=== PATIENT | male | born 1955 | race Caucasian/White ===

== ENCOUNTER 2017-07-09 12:23 | Emergency (ER) | payer OTHER ==
[2017-07-09] MEDS ORDERED: Naproxen 500 MG TAB PO STA (13:21)
[2017-07-09 13:24] LABS: BASO # 0.1 K/uL (0.0-0.2); BASO % 1.2 % (0.0-2.0); EOS # 0.3 K/uL (0.0-0.7); EOS % 3.5 % (0.0-4.0); HEMOGLOBIN 16.3 g/dL (12.0-18.0); LYMPH # 2.4 K/uL (1.0-4.3); LYMPH % 24.9 % (20.0-40.0); MEAN CELL VOLUME 95.1 fl (80.0-94.0); MEAN CORPUSCULAR HEMOGLOBIN 32.9 pg (27.0-31.0); MEAN CORPUSCULAR HGB CONC 34.6 g/dL (33.0-37.0); MEAN PLATELET VOLUME 9.1 fl (7.2-11.7); MONO # 0.7 K/uL (0.0-0.8); MONO % 7.4 % (0.0-10.0); NEUT # 6.1 K/uL (1.8-7.0); RBC 4.95 Mil/uL (4.40-5.90); RED CELL DISTRIBUTION WIDTH 14.8 % (11.5-14.5); WHITE BLOOD COUNT 9.6 K/uL (4.8-10.8)
--- NOTE | 2017-07-09 13:26 | ED PDOC ---
Lower Extremity Pain/Injury Time Seen by Provider: 07/09/17 12:39 Chief Complaint (Nursing): Lower Extremity Problem/Injury Chief Complaint (Provider): Right 2nd Toe Pain History Per: Patient History/Exam Limitations: no limitations Onset/Duration Of Symptoms: Days (x2) Current Symptoms Are (Timing): Still Present Additional Complaint(s): 61 y/o male with a pmhx of diabetes who presents to the ED for evaluation of right 2nd toe pain x2 days. Patient reports he stopped taking his diabetes medication 2 years ago. He states hes tried using a fungal cream and cleaning his toe with alcohol without relief of symptoms, prompting him to present. PMD: None Past Medical History Reviewed: Historical Data, Nursing Documentation, Vital Signs Vital Signs: Last Vital Signs Temp 98.4 F 07/09/17 12:31 Pulse 111 H 07/09/17 12:31 Resp 18 07/09/17 12:31 BP 187/84 H 07/09/17 12:31 Pulse Ox 99 07/09/17 12:31 - Medical History PMH: Diabetes, Gall Bladder Disease - Surgical History Surgical History: No Surg Hx - Family History Family History: States: Unknown Family Hx - Home Medications Home Medications: Ambulatory Orders Medication Instructions Recorded hydroCHLOROthiazide [Hydrodiuril] 25 mg PO DAILY #30 tab 07/09/17 - Allergies Allergies/Adverse Reactions: Allergies Allergy/AdvReac Type Severity Reaction Status Date / Time No Known Allergies Allergy Verified 07/09/17 12:31 Review of Systems ROS Statement: Except As Marked, All Systems Reviewed And Found Negative Musculoskeletal: Positive for: Foot Pain (right 2nd toe) Physical Exam - Reviewed Nursing Documentation Reviewed: Yes Vital Signs Reviewed: Yes - Physical Exam Appears: Positive for: Non-toxic, No Acute Distress Head Exam: Positive for: ATRAUMATIC Skin: Positive for: Normal Color Eye Exam: Positive for: Normal appearance Neck: Positive for: Normal Cardiovascular/Chest: Positive for: Regular Rate, Rhythm Respiratory: Positive for: Normal Breath Sounds. Negative for: Respiratory Distress Extremity: Positive for: Tenderness (distal right 2nd toe), Swelling (localized swelling and erthythema to distal portion of right 2nd toe), Other (right foot has dry and cracked skin ) Neurologic/Psych: Positive for: Alert - Laboratory Results Result Diagrams: 07/09/17 13:15 07/09/17 13:15 - ECG O2 Sat by Pulse Oximetry: 99 (RA) Pulse Ox Interpretation: Normal Medical Decision Making Medical Decision Making: Plan: --CMP --Hemoblogin A1C --CBC --Glucose, POC --Naproxen 500mg PO --Accucheckk --X-Ray Right Foot 14:25 Podiatry at bedside. HTN in ER - CLonidine ordered. Repeat BP improved. Scribe Attestation: Documented by Wilemr Rueda, acting as a scribe for Winter Del Cid PA-C. MD Scribe Attestation: All medical record entries made by the Scribe were at my direction and personally dictated by me. I have reviewed the chart and agree that the record accurately reflects my personal performance of the history, physical exam, medical decision making, and the department course for this patient. I have also personally directed, reviewed, and agree with the discharge instructions and disposition. Disposition - Clinical Impression Clinical Impression: Toe pain, Hypertension - Patient ED Disposition Is Patient to be Admitted: No Counseled Patient/Family Regarding: Diagnosis, Need For Followup - Disposition Referrals: Podiatry Clinic [Outside] [facility] [Outside] Disposition: Routine/Home Disposition Time: 16:15 Condition: STABLE Prescriptions: hydroCHLOROthiazide [Hydrodiuril] 25 mg PO DAILY #30 tab Instructions: High Blood Pressure in Adults, Muscle and Bone Pain (DC) Forms: [employer] (Frisian), [facility] School/Work Excuse
--- NOTE | 2017-07-09 13:32 | RAD ---
PROCEDURE: Right Foot Radiographs. HISTORY: pain, swelling, Hx DM COMPARISON: None. FINDINGS: BONES: No acute fracture. Os peroneum. JOINTS: Unremarkable. SOFT TISSUES: Normal. OTHER FINDINGS: None. IMPRESSION: No demonstrated fracture dislocation.
[2017-07-09 13:34] LABS: ALBUMIN 4.1 g/dL (3.5-5.0); ALT/SGPT 36 U/L (21-72); AST/SGOT 53 U/L (17-59); BLOOD UREA NITROGEN 9 mg/dl (9-20); CALCIUM 9.5 mg/dL (8.4-10.2); GFR AFRICAN-AMERICAN > 60; GFR NON-AFRICAN AMERICAN > 60
[2017-07-09] MEDS ORDERED: Naproxen 500 MG TAB PO ONE (13:47)
--- NOTE | 2017-07-09 14:41 | CP.PCM.CON ---
History of Present Illness - History of Present Illness History of Present Illness: Podiatry - Dr. Reid 61 year old male PMHx DM presents to ED complaining of pain in right toe 2nd digit ongoing for several days. 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 Patient reports moderate pain, worst with pressure on the top of his toe. Patient denies any recent change in activity or shoe gear. Patient admits to putting IcyHot and alcohol on his forefoot for relief of symptoms with no success. Patient admits to being a diabetic but stopped taking his medication 2 years ago. Admits to occasional numbness and tingling in his feet. Denies other pedal complaints. Denies N/V/F/D /C/SOB/ELKINS/dizziness. PMHx: DM, gallstones PSH: gallstone removal FH: unknown SH: daily ETOH use (1/2 pint a day), 1PPD x30 years, no illicit drug use All: NKDA Review of Systems - Review of Systems All systems: reviewed and no additional remarkable complaints except (as per HPI ) Past Patient History - Past Social History Smoking Status: Heavy Smoker > 10 Cigarettes Daily - PULMONARY Hx Respiratory Disorders: Yes - GASTROINTESTINAL Hx Gall Bladder Disease: Yes - PSYCHIATRIC Hx Substance Use: No - ANESTHESIA Hx Anesthesia: Yes Hx Anesthesia Reactions: No Meds Home Medications: Home Medication List Medication Instructions Recorded Confirmed Type hydroCHLOROthiazide [Hydrodiuril] 25 mg PO DAILY #30 tab 07/09/17 Rx Allergies/Adverse Reactions: Allergies Allergy/AdvReac Type Severity Reaction Status Date / Time No Known Allergies Allergy Verified 07/09/17 12:31 Physical Exam - Constitutional Appears: Well, Non-toxic, No Acute Distress - Extremities Exam Additional comments: RLE focused physical exam: VASC: DP and PT pulses palpable 2/4. CFT <3 seconds to all digits x5. Temperature gradient warm to warm. No edema noted. No increase in warmth noted to 2nd digit. NEURO: Gross sensation absent. DERM: Severe xerosis present to plantar aspect of foot. Fissues present in sulcus of foot however no full thickness break in soft tissue. Green topical in webspaces. ORTHO: Pain on palpation distal tuft of 2nd digit. No pain upon 2nd digit DIPJ, PIPJ, or MPJ ROM. Digital ROM present. No pain with 2nd metatarsal ROM. Muscle strength 5/5 for all dorsiflexors, plantarflexors, inverters, and everters. - Neurological Exam Neurological exam: Alert, Oriented x3 - Psychiatric Exam Psychiatric exam: Normal Affect, Normal Mood Results - Vital Signs Recent Vital Signs: Last Vital Signs Temp 98.4 F 07/09/17 12:31 Pulse 111 H 07/09/17 12:31 Resp 18 07/09/17 12:31 BP 187/84 H 07/09/17 12:31 Pulse Ox 99 07/09/17 14:28 - Labs Result Diagrams: 07/09/17 13:15 07/09/17 13:15 Labs: Laboratory Results - last 24 hr 07/09/17 07/09/17 07/09/17 12:53 13:15 13:15 WBC 9.6 RBC 4.95 Hgb 16.3 Hct 47.1 MCV 95.1 H MCH 32.9 H MCHC 34.6 RDW 14.8 H Plt Count 489 H MPV 9.1 Neut % (Auto) 63.0 Lymph % (Auto) 24.9 [place] % (Auto) 7.4 Eos % (Auto) 3.5 Baso % (Auto) 1.2 Neut # (Auto) 6.1 Lymph # (Auto) 2.4 [place] # (Auto) 0.7 Eos # (Auto) 0.3 Baso # (Auto) 0.1 Sodium 142 Potassium 4.4 Chloride 100 Carbon Dioxide 31 H Anion Gap 15 BUN 9 Creatinine 0.7 L Est GFR ( Amer) > 60 Est GFR (Non-Af Amer) > 60 POC Glucose (mg/dL) 100 Random Glucose 111 H Calcium 9.5 Total Bilirubin 1.7 H AST 53 ALT 36 Alkaline Phosphatase 114 Total Protein 8.2 Albumin 4.1 Globulin 4.1 H Albumin/Globulin Ratio 1.0 Assessment & Plan - Assessment and Plan (Free Text) Assessment: 61M with right 2nd digit pain secondary to trauma Plan: Patient seen and evaluated Discussed with attending, Dr. Reid Right foot XR reviewed: unremarkable 2nd and 3rd digits caterina splinted Surgical shoe dispensed - patient to keep splint and wear surgical shoe with ambulation at all times Recommend RICE therapy Pain control per ED Advised patient to follow up with Dr. Reid in clinic on 07/17/17 Stable for dc per podiatry Thank you for the consult
[2017-07-09 18:50] VITALS: BP 165/89; PULSE 106; RESP 17
[2017-07-09 18:53] VITALS: TEMP 98.1
[2017-07-12 20:16] VITALS: O2SAT 99
== END 2017-07-09 18:52 | disposition home or self-care (01) ==
LOC: H.ER 12:23
DX: M79.674 Pain in right toe(s) (principal); E11.9 Type 2 diabetes mellitus without complications; I10 Essential (primary) hypertension

== ENCOUNTER 2017-08-10 09:43 | Inpatient (IN) | payer OTHER ==
[2017-08-10 09:44] VITALS: BMI 22.8
--- NOTE | 2017-08-10 10:58 | ED PDOC ---
Lower Extremity Pain/Injury Time Seen by Provider: 08/10/17 10:15 Chief Complaint (Nursing): Lower Extremity Problem/Injury Chief Complaint (Provider): Lower Extremity Problem/Injury History Per: Patient History/Exam Limitations: no limitations Onset/Duration Of Symptoms: Persistent (xmonths) Current Symptoms Are (Timing): Still Present Additional Complaint(s): 61 year old male with medical history of diabetes and hypertension, referred to the emergency department by podiatry clinic for an evaluation of a gangrene right foot. Patient reports having pain in his 2nd and 3rd toes of the right foot ongoing for "months". He denies any fever, chills or drainage. PMD: Carmen Lynn MD [employer] Supervisor: Dr. Pham Past Medical History Reviewed: Historical Data, Nursing Documentation, Vital Signs Vital Signs: Last Vital Signs Temp 98.2 F 08/10/17 09:45 Pulse 98 H 08/10/17 09:45 Resp 16 08/10/17 09:45 BP 133/78 08/10/17 09:45 Pulse Ox 98 08/10/17 09:45 - Medical History PMH: Diabetes, Gall Bladder Disease, HTN - Family History Family History: States: Unknown Family Hx - Home Medications Home Medications: Ambulatory Orders Medication Instructions Recorded Atorvastatin [Lipitor] 40 mg PO DAILY 08/10/17 MetFORMIN ER [Glucophage XR] 500 mg PO QPM 08/10/17 hydroCHLOROthiazide [Hydrodiuril] 25 mg PO DAILY 08/10/17 - Allergies Allergies/Adverse Reactions: Allergies Allergy/AdvReac Type Severity Reaction Status Date / Time No Known Allergies Allergy Verified 08/10/17 09:57 Review of Systems ROS Statement: Except As Marked, All Systems Reviewed And Found Negative Constitutional: Negative for: Fever, Chills Musculoskeletal: Positive for: Foot Pain (right-sided 2nd-3rd toes with gangrene ). Negative for: Other (Gangrene drainage) Physical Exam - Reviewed Nursing Documentation Reviewed: Yes Vital Signs Reviewed: Yes - Physical Exam Appears: Positive for: No Acute Distress Cardiovascular/Chest: Positive for: Regular Rate, Rhythm Respiratory: Positive for: Normal Breath Sounds. Negative for: Respiratory Distress Extremity: Positive for: Other (RIGHT GANGRENE FOOT DEFERRED TO PODIATRY) Neurologic/Psych: Positive for: Alert, Oriented - Laboratory Results Result Diagrams: 08/13/17 06:00 06/26/18 05:50 - ECG O2 Sat by Pulse Oximetry: 98 (RA) Pulse Ox Interpretation: Normal Medical Decision Making Medical Decision Making: Initial Impression: Gangrene foot Initial Plan: * Type and screen * CMP * CBC * PTT * PT * CXR * Morphine 2mg IV * Blood culture * Xray foot (right) Time: 1048 --Podiatry consult ordered. Scribe Attestation: Documented by Gabi Crabtree, acting as a scribe for Lyn Bearden MD. Provider Scribe Attestation: All medical record entries made by the Scribe were at my direction and personally dictated by me. I have reviewed the chart and agree that the record accurately reflects my personal performance of the history, physical exam, medical decision making, and the department course for this patient. I have also personally directed, reviewed, and agree with the discharge instructions and disposition. Disposition - Clinical Impression Clinical Impression: Gangrene of foot - Patient ED Disposition Is Patient to be Admitted: Yes - Disposition Disposition Time: 13:44 Condition: STABLE - Pt Status Changed To: Hospital Disposition Of: Inpatient - Admit Certification Admit to Inpatient:: After my assessment, the patient will require hospitalization for at least two midnights. This is because of the severity of symptoms shown, intensity of services needed, and/or the medical risk in this patient being treated as an outpatient. - POA Present On Arrival: None
[2017-08-10 11:42] LABS: BASO # 0.1 K/uL (0.0-0.2); BASO % 1.1 % (0.0-2.0); EOS # 0.4 K/uL (0.0-0.7); EOS % 2.9 % (0.0-4.0); HEMOGLOBIN 15.4 g/dL (12.0-18.0); LYMPH # 2.4 K/uL (1.0-4.3); LYMPH % 19.6 % (20.0-40.0); MEAN CELL VOLUME 94.3 fl (80.0-94.0); MEAN CORPUSCULAR HEMOGLOBIN 32.4 pg (27.0-31.0); MEAN CORPUSCULAR HGB CONC 34.4 g/dL (33.0-37.0); MEAN PLATELET VOLUME 9.1 fl (7.2-11.7); MONO # 0.8 K/uL (0.0-0.8); MONO % 6.6 % (0.0-10.0); NEUT # 8.5 K/uL (1.8-7.0); NEUT % 69.8 % (50.0-75.0); RBC 4.75 Mil/uL (4.40-5.90); RED CELL DISTRIBUTION WIDTH 13.5 % (11.5-14.5); WHITE BLOOD COUNT 12.1 K/uL (4.8-10.8)
[2017-08-10 11:55] LABS: ALBUMIN 4.3 g/dL (3.5-5.0); ALT/SGPT 23 U/L (21-72); AST/SGOT 30 U/L (17-59); BLOOD UREA NITROGEN 12 mg/dl (9-20); CALCIUM 10.1 mg/dL (8.4-10.2); GFR AFRICAN-AMERICAN > 60; GFR NON-AFRICAN AMERICAN > 60
[2017-08-10 12:03] LABS: INR 1.2 (0.9-1.2); PARTIAL THROMBOPLASTIN TIME 38.1 Seconds (25.6-37.1); PROTHROMBIN TIME 13.5 Seconds (9.8-13.1)
[2017-08-10] MEDS ORDERED: Piperacillin/Tazobact 4.5 GM in Sodium Chloride 0.9% 100 ML IVPB STA (13:36)
--- NOTE | 2017-08-10 14:19 | CP.PCM.HP ---
History of Present Illness - History of Present Illness History of Present Illness: 61M p/w worsening throbbing pain to RIGHT foot for 2-3 months. He denies any inciting trauma, but works in a [employer] company that he reports sometimes his feet bump into things. He cannot tolerate having foot up on bed and must hang it off the side to "get relief". In addition, he reports cramping sensation in b/l calves if he walks "too much" or has to run that resolves with resting. He denies any SOB, chest pain, palpitations, dizziness, headache, fevers, chills, abdominal pain, nausea, vomiting, diarrhea/constipation, or urinary symptoms. He has been taking his medication as prescribed. PMH: HTN, HLD, Prediabetes PSH: Lap CCY Allergies: NKDA Smokin-1.5ppd/20yrs Alcohol: 4 beers/3 shots almost every day Drugs: Denies ED COURSE VSS: 36.8- 98- 133/78- 16- 98%RA CBC: 12.1>15.4/44.8<576, no shift CMP: 131/5.0- 91/33- 12/0.8; TBili-1.4, ALP/AST/ALT- 92/30/23 BCx/Wound Cx Foot X-ray Morphine Vanc 1g Zosyn 4.5mg x1 Present on Admission - Present on Admission Any Indicators Present on Admission: No Review of Systems - Musculoskeletal Musculoskeletal: Muscle Cramps, Radiating Pain into Limb Past Patient History - Past Social History Smoking Status: Heavy Smoker > 10 Cigarettes Daily - CARDIAC Hx Cardiac Disorders: Yes - PULMONARY Hx Respiratory Disorders: No - ENDOCRINE/METABOLIC Hx Endocrine Disorders: Yes - MUSCULOSKELETAL/RHEUMATOLOGICAL Hx Musculoskeletal Disorders: Yes - GASTROINTESTINAL Hx Gall Bladder Disease: Yes - PSYCHIATRIC Hx Substance Use: No - SURGICAL HISTORY Other/Comment: Gallstones removed. Left arm surgery - ANESTHESIA Hx Anesthesia: Yes Hx Anesthesia Reactions: No Meds Allergies/Adverse Reactions: Allergies Allergy/AdvReac Type Severity Reaction Status Date / Time No Known Allergies Allergy Verified 08/10/17 09:57 Physical Exam - Constitutional Appears: Non-toxic, No Acute Distress, Older Than Stated Age, Chronically Ill - Head Exam Head Exam: ATRAUMATIC Additional comments: Swelling over RIGHT maxilla that is non-tender on palpation and feels like bone. - Eye Exam Eye Exam: EOMI, Scleral icterus (mild). absent: Normal appearance (small soft swelling in RIGHT medial eye/nasal transition) Pupil Exam: PERRL - ENT Exam ENT Exam: Mucous Membranes Moist Additional comments: [] VERY poor dentition, 1 tooth in RIGHT upper with surrounding erythema and patient reports pain [] small, 1cm swellings x4 anterior to frenulum linguae - Neck Exam Neck exam: Positive for: Full Rom, Normal Inspection. Negative for: Lymphadenopathy - Respiratory Exam Respiratory Exam: Clear to Auscultation Bilateral, NORMAL BREATHING PATTERN. absent: Rales, Wheezes - Cardiovascular Exam Cardiovascular Exam: REGULAR RHYTHM, +S1, +S2 - GI/Abdominal Exam GI & Abdominal Exam: Normal Bowel Sounds, Soft. absent: Tenderness Additional comments: [] scars c/w surgical history - Extremities Exam Extremities exam: Positive for: full ROM. Negative for: normal capillary refill (not possible to assess as feet are dry), normal inspection (Not able to visualize myself as podiatry had dressed entire foot, however picture that family has at bedside shows RIGHT foot dry gangrene to 2nd toe and likely 3rd. Please see Podiatry note and will see with Podiatry in the morning), pedal edema , tenderness, pedal pulses present - Neurological Exam Neurological exam: Alert, Oriented x3 - Psychiatric Exam Psychiatric exam: Normal Affect, Normal Mood - Skin Skin Exam: Dry, Normal Color Results - Vital Signs Recent Vital Signs: Last Vital Signs Temp 36.8 C 08/10/17 13:56 Pulse 98 H 08/10/17 13:56 Resp 16 08/10/17 13:56 BP 133/78 08/10/17 13:56 Pulse Ox 98 08/10/17 11:15 - Labs Result Diagrams: 08/10/17 11:35 08/10/17 11:35 Labs: Laboratory Results - last 24 hr 08/10/17 08/10/17 08/10/17 11:35 11:35 11:35 WBC 12.1 H RBC 4.75 Hgb 15.4 Hct 44.8 MCV 94.3 H MCH 32.4 H MCHC 34.4 RDW 13.5 Plt Count 576 H MPV 9.1 Neut % (Auto) 69.8 Lymph % (Auto) 19.6 L [place] % (Auto) 6.6 Eos % (Auto) 2.9 Baso % (Auto) 1.1 Neut # (Auto) 8.5 H Lymph # (Auto) 2.4 [place] # (Auto) 0.8 Eos # (Auto) 0.4 Baso # (Auto) 0.1 PT 13.5 H INR 1.2 APTT 38.1 H Sodium 131 L Potassium 5.0 Chloride 91 L Carbon Dioxide 33 H Anion Gap 12 BUN 12 Creatinine 0.8 Est GFR ( Amer) > 60 Est GFR (Non-Af Amer) > 60 Random Glucose 167 H Calcium 10.1 Total Bilirubin 1.4 H AST 30 ALT 23 Alkaline Phosphatase 92 Total Protein 8.4 H Albumin 4.3 Globulin 4.1 H Albumin/Globulin Ratio 1.0 Blood Type Antibody Screen BBK History Checked 08/10/17 11:35 WBC RBC Hgb Hct MCV MCH MCHC RDW Plt Count MPV Neut % (Auto) Lymph % (Auto) [place] % (Auto) Eos % (Auto) Baso % (Auto) Neut # (Auto) Lymph # (Auto) [place] # (Auto) Eos # (Auto) Baso # (Auto) PT INR APTT Sodium Potassium Chloride Carbon Dioxide Anion Gap BUN Creatinine Est GFR ( Amer) Est GFR (Non-Af Amer) Random Glucose Calcium Total Bilirubin AST ALT Alkaline Phosphatase Total Protein Albumin Globulin Albumin/Globulin Ratio Blood Type A POSITIVE Antibody Screen Negative BBK History Checked No verified bt Assessment & Plan - Assessment and Plan (Free Text) Assessment: 61M PMH HTN/HLD/Prediabetes p/w with RIGHT foot dry gangrene, RLE rest pain, and LLE claudication. Minimal leukocytosis, afebrile. Plan: Diet: Heart Healthy DVT prophylaxis: 40mg Lovenox Podiatry Consult (Ankit): Drsg changes, will f/u recs Cardiology Consult (Campbell): Vascular evaluation for claudication/rest pain ID Consult (Keron): pending; vanc/zosyn in the interim Smoker: Nicoderm patch Alcohol Use: CIWA protocol, 2mg Ativan PRN CIWA >8 HTN: resume home meds HLD: resume home meds Prediabetes: Diet/exercise, monitor glucose
--- NOTE | 2017-08-10 14:20 | RAD ---
PROCEDURE: CHEST RADIOGRAPH, 1 VIEW HISTORY: Admission COMPARISON: None available. FINDINGS: LUNGS: Borderline patchy infiltrate or atelectasis in the right base with none on the left. PLEURA: Blunting of the left costophrenic sulcus reflects trace left pleural effusion or possible fibrosis. No right pleural effusion evident. No pneumothorax bilaterally. CARDIOVASCULAR: Possible cardiomegaly. Technical magnification likely present to some degree in this frontal chest radiograph. No pulmonary vascular congestion appreciable. OSSEOUS STRUCTURES: No significant abnormalities. VISUALIZED UPPER ABDOMEN: Normal. OTHER FINDINGS: None. IMPRESSION: Portal and right basilar patchy infiltrate. Cardiomegaly without pulmonary vascular congestion.
--- NOTE | 2017-08-10 15:02 | CP.PCM.CON ---
History of Present Illness - History of Present Illness History of Present Illness: A 61 y/o M PMH HTN, HLD, prediabetes seen and evaluated at the ED for gangrenous R 2nd and 3rd toes. Patient states that his problem started a week ago. Patient states that the R foot 2nd and 3rd toes atarted to have color changes which turns rapidly into beeing completely black. Patient states that the adjacent toes started to change in colour and the interdigital spaces started to get cracked and a thick drainage started to get out of it. Patient states that patient states that he came to our clinic last week and his toes didn't look that bad but it got deteriorated quickly. Patient denies any F/N/V/ C or SOB recently. Review of Systems - Review of Systems All systems: reviewed and no additional remarkable complaints except Review of Systems: as per HPI Past Patient History - Past Social History Smoking Status: Heavy Smoker > 10 Cigarettes Daily - CARDIAC Hx Cardiac Disorders: Yes - PULMONARY Hx Respiratory Disorders: No - ENDOCRINE/METABOLIC Hx Endocrine Disorders: Yes - MUSCULOSKELETAL/RHEUMATOLOGICAL Hx Musculoskeletal Disorders: Yes - GASTROINTESTINAL Hx Gall Bladder Disease: Yes - PSYCHIATRIC Hx Substance Use: No - SURGICAL HISTORY Other/Comment: Gallstones removed. Left arm surgery - ANESTHESIA Hx Anesthesia: Yes Hx Anesthesia Reactions: No Meds Allergies/Adverse Reactions: Allergies Allergy/AdvReac Type Severity Reaction Status Date / Time No Known Allergies Allergy Verified 08/10/17 09:57 - Medications Medications: Current Medications Atorvastatin Calcium (Lipitor) 40 mg PO DAILY MARILU Enoxaparin Sodium (Lovenox) 40 mg SC HS MARILU PRN Reason: Protocol Hydrochlorothiazide (Hydrodiuril) 25 mg PO DAILY MARILU Vancomycin HCl 1 gm/ Sodium (Chloride) 250 mls @ 166.667 mls/hr IVPB STAT STA PRN Reason: Protocol Stop: 08/10/17 15:05 Last Admin: 08/10/17 14:03 Dose: 166.667 mls/hr Metformin HCl (Glucophage) 250 mg PO BID MARILU Physical Exam - Constitutional Appears: Well, Non-toxic, No Acute Distress - Head Exam Head Exam: ATRAUMATIC, NORMOCEPHALIC - Extremities Exam Additional comments: LE focused exam Vasc: DP/PT Non palpable b/l. Temp gradient warm to cool from proximal to distal on the L side and warm to warm on the R side. Cap refill delayed in all digits.pitting edema and erythema noted to the L foot up to the level of the malleoli. Neuro: Grossly diminished to entire forefoot Derm:R 2nd and 3rd toes are completely black and dry with no sensation on touchall the R interspaces are cracked and ulcerated with purulent dranage and malodor. dark discoloration involves the R forefoot up to the level of the met. necks. MSK: Muscle power 4/5 in all muscle groups on the R side and 5/5 in all muscle groups of the L side. - Neurological Exam Neurological exam: Alert, Oriented x3 - Psychiatric Exam Psychiatric exam: Normal Affect, Normal Mood Results - Vital Signs Recent Vital Signs: Last Vital Signs Temp 97.9 F 08/10/17 14:26 Pulse 97 H 08/10/17 14:26 Resp 16 08/10/17 14:26 BP 147/80 08/10/17 14:26 Pulse Ox 100 08/10/17 14:26 - Labs Result Diagrams: 08/10/17 11:35 08/10/17 11:35 Labs: Laboratory Results - last 24 hr 08/10/17 08/10/17 08/10/17 11:35 11:35 11:35 WBC 12.1 H RBC 4.75 Hgb 15.4 Hct 44.8 MCV 94.3 H MCH 32.4 H MCHC 34.4 RDW 13.5 Plt Count 576 H MPV 9.1 Neut % (Auto) 69.8 Lymph % (Auto) 19.6 L [place] % (Auto) 6.6 Eos % (Auto) 2.9 Baso % (Auto) 1.1 Neut # (Auto) 8.5 H Lymph # (Auto) 2.4 [place] # (Auto) 0.8 Eos # (Auto) 0.4 Baso # (Auto) 0.1 PT 13.5 H INR 1.2 APTT 38.1 H Sodium 131 L Potassium 5.0 Chloride 91 L Carbon Dioxide 33 H Anion Gap 12 BUN 12 Creatinine 0.8 Est GFR ( Amer) > 60 Est GFR (Non-Af Amer) > 60 Random Glucose 167 H Calcium 10.1 Total Bilirubin 1.4 H AST 30 ALT 23 Alkaline Phosphatase 92 Total Protein 8.4 H Albumin 4.3 Globulin 4.1 H Albumin/Globulin Ratio 1.0 Blood Type Antibody Screen BBK History Checked 08/10/17 11:35 WBC RBC Hgb Hct MCV MCH MCHC RDW Plt Count MPV Neut % (Auto) Lymph % (Auto) [place] % (Auto) Eos % (Auto) Baso % (Auto) Neut # (Auto) Lymph # (Auto) [place] # (Auto) Eos # (Auto) Baso # (Auto) PT INR APTT Sodium Potassium Chloride Carbon Dioxide Anion Gap BUN Creatinine Est GFR ( Amer) Est GFR (Non-Af Amer) Random Glucose Calcium Total Bilirubin AST ALT Alkaline Phosphatase Total Protein Albumin Globulin Albumin/Globulin Ratio Blood Type A POSITIVE Antibody Screen Negative BBK History Checked No verified bt Assessment & Plan - Assessment and Plan (Free Text) Assessment: A 61 y/o M patient presents to the ED for R 2nd and 3rd toes dry gangreen and R foot infection. Plan: - Patient evaluated and chart created. - Plan discussed with attending Ankit Mcnamara - Discussed with the patient the need to do amputation which might extend to the level of transmetatarsal amputation. - Discuseed with the patient that he needs to be admitted to the hospital. - Culture was taken from the ulcer in the 2nd R interspace. - Infectious disease consulted. - Vascular surgery consulted - 3 Views X-ray R foot ordered. - JASON/PVR ordered - Dressing of the R foot was done using betadine, DSD, ABD and Kerlix. - Patient expressed verbal understanding. - patient well be followed up by the podiatry team in house. - Date & Time Date: 08/10/17 Time: 15:04
--- NOTE | 2017-08-10 16:52 | RAD ---
PROCEDURE: Right Foot Radiographs. HISTORY: gangrenous digits R foot COMPARISON: 07/09/2017 FINDINGS: BONES: Normal. No fracture. JOINTS: Normal. SOFT TISSUES: Mild soft tissue swelling distal aspect right foot. OTHER FINDINGS: None. IMPRESSION: Soft tissue swelling without acute articular or osseous abnormality. No significant interval change compared to the prior examination(s).
[2017-08-10] MEDS ORDERED: Piperacillin/Tazobact 4.5 GM in Sodium Chloride 0.9% 100 ML IVPB SCH (17:00)
--- NOTE | 2017-08-10 19:07 | CP.PCM.PN ---
Subjective - Date & Time of Evaluation Date of Evaluation: 08/10/17 Time of Evaluation: 18:56 - Subjective Subjective: I D NOTE PATIENT EXAMINED ,EMR REVIEWED CONTINUE SAME RX FULL CONSULT DICTATED Objective - Vital Signs/Intake and Output Vital Signs (last 24 hours): Temp Pulse Resp BP Pulse Ox 98.4 F 86 20 162/80 H 100 08/10/17 16:17 08/10/17 16:17 08/10/17 16:17 08/10/17 16:17 08/10/17 16:17 - Medications Medications: Current Medications Atorvastatin Calcium (Lipitor) 40 mg PO DAILY [facility] Enoxaparin Sodium (Lovenox) 40 mg SC HS [facility] PRN Reason: Protocol Hydrochlorothiazide (Hydrodiuril) 25 mg PO DAILY [facility] Vancomycin HCl 1 gm/ Sodium (Chloride) 250 mls @ 166.667 mls/hr IVPB DAILY [facility] PRN Reason: Protocol Piperacillin Sod/Tazobactam (Sod 4.5 gm/ Sodium Chloride) 100 mls @ 100 mls/hr IVPB Q8@0700,1500,2300 [facility] PRN Reason: Protocol Lorazepam (Ativan) 2 mg IVP Q6 PRN PRN Reason: Agitation Nicotine (Nicoderm Cq) 1 patch TD DAILY [facility] - Labs Labs: 08/10/17 11:35 08/10/17 11:35 PT 13.5 Seconds (9.8-13.1) H 08/10/17 11:35 INR 1.2 (0.9-1.2) 08/10/17 11:35 APTT 38.1 Seconds (25.6-37.1) H 08/10/17 11:35
[2017-08-10] MEDS: Enoxaparin 40 mg Syringe SC SCH (22:06)
[2017-08-10] MEDS: Piperacillin/Tazobact 4.5 GM in Sodium Chloride 0.9% 100 ML IVPB SCH (22:07)
--- NOTE | 2017-08-11 04:28 | CON ---
DATE: 08/10/2017INFECTIOUS DISEASE CONSULT HISTORY OF PRESENT ILLNESS: He is a 61-year-old male who has stated he has been having severe pain in right lower extremity over the past few months. He states he is unable to sleep for extended period because of the pain, and in fact, that he has to keep his legs hanging out over the bed. He says that actually, he feels better when he stands on his feet. He had been evaluated in the emergency room few weeks or so back, and according to him, when he came to the emergency department at this time, he had two gangrenous toes, the right second and third toes. He said the gangrenous toes started about a week ago. He said they had color changes as the tip of the toes were blackened and then they turned rapidly to the whole toe being black, and he noticed that the other parts of the foot had a thick drainage. He said that the toes, he was seen in the clinic last week or the emergency department, I am not sure which, and he said that it did not look that bad but it deteriorated rapidly, states he was initially being treated for diabetes mellitus. SOCIAL HISTORY: He also is a smoker, smokes greater than 10 cigarettes daily. SURGICAL HISTORY: He has a surgical history of having cholecystectomy and surgery on his left arm, secondary to trauma. LABORATORY DATA: His WBC count is 12.1, hemoglobin 15.4, platelets 576, polys 69, lymphs 19%. His sodium is 131, potassium 5, chloride 91, BUN 12, creatinine is 0.8. GFR is greater than 60, random glucose is 167. He states he really started his treatment for diabetes. I have ordered a procalcitonin level on the patient also and followup CBC and CMP have been ordered. PHYSICAL EXAMINATION: GENERAL: The patient is alert, cooperative, and oriented to time and place, quite considering the symptoms. HEENT: Within normal limits. NECK: Supple. LUNGS: Decreased breath sounds. Scattered, some fine crepitations at the right base or rales at right base. ABDOMEN: Soft. Positive bowel sounds. EXTREMITIES: Unable to examine the foot totally, but the right lower extremities around the calf and up to the foot is significantly larger than the left lower extremity. This foot has been dressed 3 times today, and et it tomorrow. At present time, the patient obviously has gangrenous toes, osteomyelitis, cellulitis, is on Zosyn and vancomycin and agree with this therapy at the present time while we await cultures. Spike Cabrales MD MTDMarlene
[2017-08-11 06:33] LABS: HEMOGLOBIN 14.9 g/dL (12.0-18.0); MEAN CELL VOLUME 93.3 fl (80.0-94.0); MEAN CORPUSCULAR HEMOGLOBIN 32.8 pg (27.0-31.0); MEAN CORPUSCULAR HGB CONC 35.2 g/dL (33.0-37.0); RBC 4.54 Mil/uL (4.40-5.90); RED CELL DISTRIBUTION WIDTH 13.8 % (11.5-14.5); WHITE BLOOD COUNT 10.7 K/uL (4.8-10.8)
[2017-08-11 06:46] LABS: BLOOD UREA NITROGEN 13 mg/dl (9-20); CALCIUM 9.6 mg/dL (8.4-10.2); GFR AFRICAN-AMERICAN > 60; GFR NON-AFRICAN AMERICAN > 60
[2017-08-11] MEDS: Piperacillin/Tazobact 4.5 GM in Sodium Chloride 0.9% 100 ML IVPB SCH ×3 (06:48→22:16)
--- NOTE | 2017-08-11 08:26 | CP.PCM.PN ---
<Birdie Lane - Last Filed: 08/11/17 12:48> Subjective - Date & Time of Evaluation Date of Evaluation: 08/11/17 Time of Evaluation: 08:24 - Subjective Subjective: No acute overnight events. Pt states that he does not have any RLE pain at this time. Denies headache, vision changes, visual/auditory hallucinations, chills, sweats overnight and remains afebrile. Objective - Vital Signs/Intake and Output Vital Signs (last 24 hours): Temp Pulse Resp BP Pulse Ox 97.6 F 79 20 154/78 H 97 08/11/17 07:55 08/11/17 07:55 08/11/17 07:55 08/11/17 07:55 08/11/17 07:55 - Medications Medications: Current Medications Atorvastatin Calcium (Lipitor) 40 mg PO DAILY [facility] Enoxaparin Sodium (Lovenox) 40 mg SC HS [facility] PRN Reason: Protocol Last Admin: 08/10/17 22:06 Dose: 40 mg Hydrochlorothiazide (Hydrodiuril) 25 mg PO DAILY [facility] Vancomycin HCl 1 gm/ Sodium (Chloride) 250 mls @ 166.667 mls/hr IVPB DAILY [facility] PRN Reason: Protocol Piperacillin Sod/Tazobactam (Sod 4.5 gm/ Sodium Chloride) 100 mls @ 100 mls/hr IVPB Q8@0700,1500,2300 [facility] PRN Reason: Protocol Last Admin: 08/11/17 06:48 Dose: 100 mls/hr Lorazepam (Ativan) 2 mg IVP Q6 PRN PRN Reason: Agitation Nicotine (Nicoderm Cq) 1 patch TD DAILY [facility] - Labs Labs: 08/11/17 05:50 08/11/17 05:50 PT 13.5 Seconds (9.8-13.1) H 08/10/17 11:35 INR 1.2 (0.9-1.2) 08/10/17 11:35 APTT 38.1 Seconds (25.6-37.1) H 08/10/17 11:35 - Constitutional Appears: No Acute Distress, Other (breathing comfortably in room air) - Head Exam Head Exam: NORMAL INSPECTION - Eye Exam Eye Exam: EOMI - ENT Exam ENT Exam: Mucous Membranes Moist - Respiratory Exam Respiratory Exam: Clear to Ausculation Bilateral, NORMAL BREATHING PATTERN. absent: Rales, Wheezes - Cardiovascular Exam Cardiovascular Exam: REGULAR RHYTHM, +S1, +S2 - GI/Abdominal Exam GI & Abdominal Exam: Soft, Normal Bowel Sounds. absent: Tenderness - Extremities Exam Extremities Exam: absent: Calf Tenderness Additional comments: RLE is covered in gauze, no exudates noted on gauze. Moving lower extremities, ambulating Gangrene of the 2nd and 3rd toe. Erythema in the R foot. No exudates notes. - Back Exam Back Exam: NORMAL INSPECTION - Neurological Exam Neurological Exam: Alert, Awake, Oriented x3 - Psychiatric Exam Psychiatric exam: Normal Affect, Normal Mood Assessment and Plan - Assessment and Plan (Free Text) Assessment: Assessment/Plan: 61 YO Male with PMHx of HTN, HLD, and prediabetes is admitted for R 2nd and 3rd toe gangrene, and lower extremities claudication. Toe Gangrene, claudication -2nd and 3rd toe dry gangrene -ID on board; c/w vanc and zosyn -Vanc/Zosyn D2 -Podiatry on board; amputation potentially to the level of transmetatarsals -Vascular consulted; Dr. Hightower, pending recs Thrombycytosis -elevated PLTs 576-->542 today -likely acute phase reactant -Hem/Onc consulted, follow up recs HTN -stable, chronic -c/w home meds Prediabetes -HbA1c 6.2 (04/2017) -stable, no meds at this time HLD -stable -c/w home meds -start asa 81mg ETOH, smoking Abuse -CIWA protocol, CIWA 0 this AM -ativan 2mg for CIWA >8 -c/w nicotine patch DVT prophyx -lovenox sc <Casi Lynn - Last Filed: 08/11/17 13:13> Objective - Vital Signs/Intake and Output Vital Signs (last 24 hours): Temp Pulse Resp BP Pulse Ox 97.6 F 79 20 154/78 H 97 08/11/17 07:55 08/11/17 07:55 08/11/17 07:55 08/11/17 07:55 08/11/17 07:55 - Medications Medications: Current Medications Aspirin (Aspirin Chewable) 81 mg PO DAILY [facility] Atorvastatin Calcium (Lipitor) 40 mg PO DAILY [facility] Last Admin: 08/11/17 09:17 Dose: 40 mg Enoxaparin Sodium (Lovenox) 40 mg SC HS [facility] PRN Reason: Protocol Last Admin: 08/10/17 22:06 Dose: 40 mg Hydrochlorothiazide (Hydrodiuril) 25 mg PO DAILY [facility] Last Admin: 08/11/17 09:17 Dose: 25 mg Vancomycin HCl 1 gm/ Sodium (Chloride) 250 mls @ 166.667 mls/hr IVPB DAILY [facility] PRN Reason: Protocol Last Admin: 08/11/17 09:17 Dose: 166.667 mls/hr Piperacillin Sod/Tazobactam (Sod 4.5 gm/ Sodium Chloride) 100 mls @ 100 mls/hr IVPB Q8@0700,1500,2300 [facility] PRN Reason: Protocol Last Admin: 08/11/17 06:48 Dose: 100 mls/hr Lorazepam (Ativan) 2 mg IVP Q6 PRN PRN Reason: Agitation Nicotine (Nicoderm Cq) 1 patch TD DAILY [facility] Last Admin: 08/11/17 09:17 Dose: 1 patch - Labs Labs: 08/11/17 05:50 08/11/17 05:50 PT 13.5 Seconds (9.8-13.1) H 08/10/17 11:35 INR 1.2 (0.9-1.2) 08/10/17 11:35 APTT 38.1 Seconds (25.6-37.1) H 08/10/17 11:35 Attending/Attestation - Attestation I have personally seen and examined this patient.: Yes I have fully participated in the care of the patient.: Yes I have reviewed all pertinent clinical information, including history, physical exam and plan: Yes Notes (Text): 08/11/17 13:13 Attestation ATTENDING NOTE Patient seen and examined. Case discussed with resident. Agree with findings and plan.
[2017-08-11] MEDS ORDERED: Povidone Iodine Topical 10% Sol ONE (08:51)
--- NOTE | 2017-08-11 10:37 | CP.PCM.PN ---
Subjective - Date & Time of Evaluation Date of Evaluation: 08/11/17 Time of Evaluation: 10:32 - Subjective Subjective: Podiatry Progress Note Dr. Pham A 61 y/o male seen for gangrenous R 2nd and 3rd toes. Patient is no acute distress. AAO x3. Patient states he has difficulty keeping his legs in bed due to pain and feels better when he is walking around or when his legs are hanging over the edge of the bed. Dressing is seen clean, dry and intact. Patient denies any overnight acute events. Patient denies any F/N/V/C or SOB recently. Objective - Vital Signs/Intake and Output Vital Signs (last 24 hours): Temp Pulse Resp BP Pulse Ox 97.6 F 79 20 154/78 H 97 08/11/17 07:55 08/11/17 07:55 08/11/17 07:55 08/11/17 07:55 08/11/17 07:55 - Medications Medications: Current Medications Aspirin (Aspirin Chewable) 81 mg PO DAILY [facility] Atorvastatin Calcium (Lipitor) 40 mg PO DAILY [facility] Last Admin: 08/11/17 09:17 Dose: 40 mg Enoxaparin Sodium (Lovenox) 40 mg SC HS [facility] PRN Reason: Protocol Last Admin: 08/10/17 22:06 Dose: 40 mg Hydrochlorothiazide (Hydrodiuril) 25 mg PO DAILY [facility] Last Admin: 08/11/17 09:17 Dose: 25 mg Vancomycin HCl 1 gm/ Sodium (Chloride) 250 mls @ 166.667 mls/hr IVPB DAILY [facility] PRN Reason: Protocol Last Admin: 08/11/17 09:17 Dose: 166.667 mls/hr Piperacillin Sod/Tazobactam (Sod 4.5 gm/ Sodium Chloride) 100 mls @ 100 mls/hr IVPB Q8@0700,1500,2300 [facility] PRN Reason: Protocol Last Admin: 08/11/17 06:48 Dose: 100 mls/hr Lorazepam (Ativan) 2 mg IVP Q6 PRN PRN Reason: Agitation Nicotine (Nicoderm Cq) 1 patch TD DAILY [facility] Last Admin: 08/11/17 09:17 Dose: 1 patch - Labs Labs: 08/11/17 05:50 08/11/17 05:50 PT 13.5 Seconds (9.8-13.1) H 06/25/18 11:35 INR 1.2 (0.9-1.2) 08/10/17 11:35 APTT 38.1 Seconds (25.6-37.1) H 08/10/17 11:35 - Constitutional Appears: Well, Non-toxic, No Acute Distress - Head Exam Head Exam: ATRAUMATIC, NORMOCEPHALIC - Extremities Exam Additional comments: LE focused exam Vasc: DP/PT Non palpable b/l. Temp gradient warm to cool from proximal to distal on the L side and warm to warm on the R side, right second and third digit are cold to touch. CFT delayed x8. Pitting edema and erythema noted to the L foot up to the level of the malleoli. Neuro: Grossly diminished to entire forefoot Derm: R 2nd and 3rd toes are necrotic and 4th and 5th digits are dusky and cool to touch, fissures noted in 2nd and 3rd interdigital spaces, malodor noted. Hyperpigmentation noted on the right foot up to the level of the metartarsal neck. MSK: Muscle power 4/5 in all muscle groups on the R side and 5/5 in all muscle groups of the L side. Patient unable to bend any digits of right foot - Neurological Exam Neurological Exam: Alert, Awake, Oriented x3 - Psychiatric Exam Psychiatric exam: Normal Affect Assessment and Plan - Assessment and Plan (Free Text) Assessment: A 61 y/o M patient for gagrenous, infected right second and third toe with ischemic changes to 4th and 5th digits as well Plan: Patient evaluated and chart reviewed Plan discussed in detail with attending, Dr. Pham Discussed with the patient the need to do amputation which might extend to the level of metatarsals Dr. Pahm would like to schedule surgery for this week pending vascular studies Culture results pending Infectious disease consulted. Vascular surgery consulted Right foot x-ray: soft tissue swelling, osseous abnormality noted in the distal aspect of the forefoot JASON/PVR ordered - f/u results Foot dressed with betadine, DSD, ABD and Kerlix. Patient expressed verbal understanding. Podiatry will continue to follow while patient in house
[2017-08-11] MEDS: Enoxaparin 40 mg Syringe SC SCH (22:16)
[2017-08-12] MEDS: Piperacillin/Tazobact 4.5 GM in Sodium Chloride 0.9% 100 ML IVPB SCH (06:02)
[2017-08-12 06:22] LABS: HEMOGLOBIN 13.5 g/dL (12.0-18.0); MEAN CELL VOLUME 95.1 fl (80.0-94.0); MEAN CORPUSCULAR HEMOGLOBIN 32.1 pg (27.0-31.0); MEAN CORPUSCULAR HGB CONC 33.8 g/dL (33.0-37.0); RBC 4.19 Mil/uL (4.40-5.90); RED CELL DISTRIBUTION WIDTH 13.8 % (11.5-14.5); WHITE BLOOD COUNT 12.1 K/uL (4.8-10.8)
--- NOTE | 2017-08-12 06:48 | CP.PCM.CON ---
History of Present Illness - History of Present Illness History of Present Illness: consultation for evaluation of PVD HPI: 61 year old male with hx of 20 pack yr smoking, HTN ,dyslipidemia presenting with c/o sx of worsening claudication along with gangrene of the right 2nd and 3rd toes. PMH: HTN, HLD, Prediabetes PSH: Lap CCY Allergies: NKDA Smokin-1.5ppd/20yrs Alcohol: 4 beers/3 shots almost every day Drugs: Denies ED COURSE VSS: 36.8- 98- 133/78- 16- 98%RA CBC: 12.1>15.4/44.8<576, no shift CMP: 131/5.0- 91/33- 12/0.8; TBili-1.4, ALP/AST/ALT- 92/30/23 BCx/Wound Cx Foot X-ray Morphine Vanc 1g Zosyn 4.5mg x1 Past Patient History - Past Social History Smoking Status: Heavy Smoker > 10 Cigarettes Daily - CARDIAC Hx Cardiac Disorders: Yes - PULMONARY Hx Respiratory Disorders: No - NEUROLOGICAL Hx Neurological Disorder: No - HEENT Hx HEENT Problems: No - RENAL Hx Chronic Kidney Disease: No - ENDOCRINE/METABOLIC Hx Endocrine Disorders: Yes - HEMATOLOGICAL/ONCOLOGICAL Hx Blood Disorders: No - INTEGUMENTARY Hx Dermatological Problems: No - MUSCULOSKELETAL/RHEUMATOLOGICAL Hx Musculoskeletal Disorders: Yes - GASTROINTESTINAL Hx Gall Bladder Disease: Yes - GENITOURINARY/GYNECOLOGICAL Hx Genitourinary Disorders: No - PSYCHIATRIC Hx Substance Use: No - SURGICAL HISTORY Other/Comment: Gallstones removed. Left arm surgery - ANESTHESIA Hx Anesthesia: Yes Hx Anesthesia Reactions: No Meds Allergies/Adverse Reactions: Allergies Allergy/AdvReac Type Severity Reaction Status Date / Time No Known Allergies Allergy Verified 08/10/17 09:57 - Medications Medications: Current Medications Aspirin (Aspirin Chewable) 81 mg PO DAILY [facility] Last Admin: 08/11/17 14:18 Dose: 81 mg Atorvastatin Calcium (Lipitor) 40 mg PO DAILY [facility] Last Admin: 08/11/17 09:17 Dose: 40 mg Enoxaparin Sodium (Lovenox) [address] [facility] PRN Reason: Protocol Last Admin: 08/11/17 22:16 Dose: 40 mg Hydrochlorothiazide (Hydrodiuril) 25 mg PO DAILY [facility] Last Admin: 08/11/17 09:17 Dose: 25 mg Vancomycin HCl 1 gm/ Sodium (Chloride) 250 mls @ 166.667 mls/hr IVPB DAILY [facility] PRN Reason: Protocol Last Admin: 08/11/17 09:17 Dose: 166.667 mls/hr Piperacillin Sod/Tazobactam (Sod 4.5 gm/ Sodium Chloride) 100 mls @ 100 mls/hr IVPB Q8@0700,1500,2300 [facility] PRN Reason: Protocol Last Admin: 08/12/17 06:02 Dose: 100 mls/hr Lorazepam (Ativan) 2 mg IVP Q6 PRN PRN Reason: Agitation Nicotine (Nicoderm Cq) 1 patch TD DAILY [facility] Last Admin: 08/11/17 09:17 Dose: 1 patch Results - Vital Signs Recent Vital Signs: Last Vital Signs Temp 98.5 F 08/12/17 01:00 Pulse 86 08/12/17 01:00 Resp 18 08/12/17 01:00 BP 138/72 08/12/17 01:00 Pulse Ox 98 08/12/17 01:00 - Labs Result Diagrams: 08/12/17 05:55 08/11/17 05:50 Labs: Laboratory Results - last 24 hr 08/11/17 08/12/17 05:50 05:55 WBC 12.1 H RBC 4.19 L Hgb 13.5 Hct 39.8 MCV 95.1 H MCH 32.1 H MCHC 33.8 RDW 13.8 Plt Count 481 H Sodium 132 Potassium 4.3 Chloride 94 L Carbon Dioxide 27 Anion Gap 15 BUN 13 Creatinine 0.9 Est GFR ( Amer) > 60 Est GFR (Non-Af Amer) > 60 Random Glucose 119 H Calcium 9.6 Assessment & Plan (1) Gangrene due to arterial insufficiency Status: Acute (2) PVD (peripheral vascular disease) Status: Acute (3) Hypertension Status: Acute
[2017-08-12] MEDS ORDERED: Povidone Iodine Topical 10% Sol ONE (07:49)
--- NOTE | 2017-08-12 08:00 | CP.PCM.PN ---
<Birdie Lane - Last Filed: 08/12/17 12:01> Subjective - Date & Time of Evaluation Date of Evaluation: 08/12/17 Time of Evaluation: 07:59 - Subjective Subjective: No acute overnight events. Pt states that he is doing well this morning, just has pain in his RLE. Tolerating diet, last BM this AM, denies chills and fever. Objective - Vital Signs/Intake and Output Vital Signs (last 24 hours): Temp Pulse Resp BP Pulse Ox 98.5 F 86 18 138/72 98 08/12/17 01:00 08/12/17 01:00 08/12/17 01:00 08/12/17 01:00 08/12/17 01:00 - Medications Medications: Current Medications Aspirin (Aspirin Chewable) 81 mg PO DAILY [facility] Last Admin: 08/11/17 14:18 Dose: 81 mg Atorvastatin Calcium (Lipitor) 40 mg PO DAILY [facility] Last Admin: 08/11/17 09:17 Dose: 40 mg Enoxaparin Sodium (Lovenox) 40 mg SC HS [facility] PRN Reason: Protocol Last Admin: 08/11/17 22:16 Dose: 40 mg Hydrochlorothiazide (Hydrodiuril) 25 mg PO DAILY [facility] Last Admin: 08/11/17 09:17 Dose: 25 mg Vancomycin HCl 1 gm/ Sodium (Chloride) 250 mls @ 166.667 mls/hr IVPB DAILY [facility] PRN Reason: Protocol Last Admin: 08/11/17 09:17 Dose: 166.667 mls/hr Piperacillin Sod/Tazobactam (Sod 4.5 gm/ Sodium Chloride) 100 mls @ 100 mls/hr IVPB Q8@0700,1500,2300 [facility] PRN Reason: Protocol Last Admin: 08/12/17 06:02 Dose: 100 mls/hr Lorazepam (Ativan) 2 mg IVP Q6 PRN PRN Reason: Agitation Nicotine (Nicoderm Cq) 1 patch TD DAILY [facility] Last Admin: 08/11/17 09:17 Dose: 1 patch - Labs Labs: 08/12/17 05:55 08/11/17 05:50 PT 13.5 Seconds (9.8-13.1) H 08/10/17 11:35 INR 1.2 (0.9-1.2) 08/10/17 11:35 APTT 38.1 Seconds (25.6-37.1) H 08/10/17 11:35 - Constitutional Appears: No Acute Distress - Head Exam Head Exam: NORMAL INSPECTION - Eye Exam Eye Exam: EOMI, Normal appearance - ENT Exam ENT Exam: Mucous Membranes Moist - Respiratory Exam Respiratory Exam: Clear to Ausculation Bilateral, NORMAL BREATHING PATTERN. absent: Wheezes - Cardiovascular Exam Cardiovascular Exam: REGULAR RHYTHM, +S1, +S2 - GI/Abdominal Exam GI & Abdominal Exam: Soft, Normal Bowel Sounds. absent: Tenderness - Extremities Exam Extremities Exam: absent: Calf Tenderness Additional comments: dry and wet gangrene of the 2nd and 3rd toe. Erythema in the R foot and in all 1st/4th and 5th digits. No exudates notes. Unable to palpate DP in RLE - Neurological Exam Neurological Exam: Alert, Awake, Oriented x3 - Psychiatric Exam Psychiatric exam: Normal Affect, Normal Mood Assessment and Plan - Assessment and Plan (Free Text) Assessment: Assessment/Plan: 61 YO Male with PMHx of HTN, HLD, and prediabetes is admitted for R 2nd and 3rd toe gangrene, and lower extremities claudication. Toe Gangrene, claudication -2nd and 3rd toe dry gangrene -ID on board; c/w vanc and zosyn -wound culture; pseudomonas sensitive to zosyn -Vanc/Zosyn D3 -c/w tylenol for pain -Podiatry on board; amputation potentially to the level of transmetatarsals -Vascular consulted; Dr. Hightower, angiogram today; will follow up recs Thrombycytosis -elevated PLTs 576-->542-->481 -likely acute phase reactant -Hem/Onc consulted, no acute interventions at this time, likely acute phase. HTN -stable, chronic -c/w home meds Prediabetes -HbA1c 6.2 (04/2017) -stable, no meds at this time HLD -stable -c/w home meds -start asa 81mg ETOH, smoking Abuse -CIWA protocol, CIWA 0 this AM -ativan 2mg for CIWA >8 -c/w nicotine patch DVT prophyx -lovenox sc <Casi Lynn - Last Filed: 08/12/17 13:40> Objective - Vital Signs/Intake and Output Vital Signs (last 24 hours): Temp Pulse Resp BP Pulse Ox 98.4 F 79 20 146/76 99 08/12/17 08:02 08/12/17 08:02 08/12/17 08:02 08/12/17 08:02 08/12/17 08:02 - Medications Medications: Current Medications Acetaminophen (Tylenol 325mg Tab) 650 mg PO Q6 PRN PRN Reason: Pain, Mild (1-3) Last Admin: 08/12/17 08:54 Dose: 650 mg Aspirin (Aspirin Chewable) 81 mg PO DAILY [facility] Last Admin: 08/12/17 08:55 Dose: 81 mg Atorvastatin Calcium (Lipitor) 40 mg PO DAILY [facility] Last Admin: 08/12/17 08:55 Dose: 40 mg Enoxaparin Sodium (Lovenox) 40 mg SC HS [facility] PRN Reason: Protocol Last Admin: 08/11/17 22:16 Dose: 40 mg Hydrochlorothiazide (Hydrodiuril) 25 mg PO DAILY [facility] Last Admin: 08/12/17 08:55 Dose: 25 mg Vancomycin HCl 1 gm/ Sodium (Chloride) 250 mls @ 166.667 mls/hr IVPB DAILY [facility] PRN Reason: Protocol Last Admin: 08/12/17 08:56 Dose: 166.667 mls/hr Piperacillin Sod/Tazobactam (Sod 4.5 gm/ Sodium Chloride) 100 mls @ 100 mls/hr IVPB Q8@0700,1500,2300 [facility] PRN Reason: Protocol Last Admin: 08/12/17 06:02 Dose: 100 mls/hr Lorazepam (Ativan) 2 mg IVP Q6 PRN PRN Reason: Agitation Nicotine (Nicoderm Cq) 1 patch TD DAILY [facility] Last Admin: 08/12/17 08:55 Dose: 1 patch - Labs Labs: 08/12/17 05:55 08/11/17 05:50 PT 13.5 Seconds (9.8-13.1) H 08/10/17 11:35 INR 1.2 (0.9-1.2) 08/10/17 11:35 APTT 38.1 Seconds (25.6-37.1) H 08/10/17 11:35 Attending/Attestation - Attestation I have personally seen and examined this patient.: Yes I have fully participated in the care of the patient.: Yes I have reviewed all pertinent clinical information, including history, physical exam and plan: Yes
--- NOTE | 2017-08-12 08:13 | CP.PCM.PN ---
Subjective - Date & Time of Evaluation Date of Evaluation: 08/12/17 Time of Evaluation: 08:09 - Subjective Subjective: Podiatry Progress Note for attending, Dr. Pham A 61 y/o male seen at bedside for gangrenous right 2nd and 3rd digits. Patient is AAOX3 and in no acute distress. Patient is complaining of pain. Patient states he has difficulty keeping his legs in bed due to pain and feels better when he is walking around or when his legs are hanging over the edge of the bed. Patient's dressing seen with sero-sanguinous strike-through. Patient denies any overnight acute events. Patient denies any F/N/V/C or SOB recently. Objective - Vital Signs/Intake and Output Vital Signs (last 24 hours): Temp Pulse Resp BP Pulse Ox 98.4 F 79 20 146/76 99 08/12/17 08:02 08/12/17 08:02 08/12/17 08:02 08/12/17 08:02 08/12/17 08:02 - Medications Medications: Current Medications Aspirin (Aspirin Chewable) 81 mg PO DAILY [facility] Last Admin: 08/11/17 14:18 Dose: 81 mg Atorvastatin Calcium (Lipitor) 40 mg PO DAILY [facility] Last Admin: 08/11/17 09:17 Dose: 40 mg Enoxaparin Sodium (Lovenox) 40 mg SC HS [facility] PRN Reason: Protocol Last Admin: 08/11/17 22:16 Dose: 40 mg Hydrochlorothiazide (Hydrodiuril) 25 mg PO DAILY [facility] Last Admin: 08/11/17 09:17 Dose: 25 mg Vancomycin HCl 1 gm/ Sodium (Chloride) 250 mls @ 166.667 mls/hr IVPB DAILY [facility] PRN Reason: Protocol Last Admin: 08/11/17 09:17 Dose: 166.667 mls/hr Piperacillin Sod/Tazobactam (Sod 4.5 gm/ Sodium Chloride) 100 mls @ 100 mls/hr IVPB Q8@0700,1500,2300 [facility] PRN Reason: Protocol Last Admin: 08/12/17 06:02 Dose: 100 mls/hr Lorazepam (Ativan) 2 mg IVP Q6 PRN PRN Reason: Agitation Nicotine (Nicoderm Cq) 1 patch TD DAILY [facility] Last Admin: 08/11/17 09:17 Dose: 1 patch - Labs Labs: 08/12/17 05:55 08/11/17 05:50 PT 13.5 Seconds (9.8-13.1) H 08/10/17 11:35 INR 1.2 (0.9-1.2) 08/10/17 11:35 APTT 38.1 Seconds (25.6-37.1) H 08/10/17 11:35 - Constitutional Appears: Well, Non-toxic, No Acute Distress - Head Exam Head Exam: ATRAUMATIC, NORMOCEPHALIC - Extremities Exam Additional comments: Right Lower Extremity focused exam Vasc: DP and PT Non palpable, Temp gradient warm to cool from proximal to distal , right second and third digit are cold to touch, CFT delayed x 8, minimal edema and erythema noted to the L foot up to the level of the malleoli Neuro: Grossly diminished to entire forefoot Derm: R 2nd and 3rd toes are necrotic and 4th and 5th digits are dusky and cool to touch, fissures noted in 2nd and 3rd interdigital spaces with mild active serosanguinous drainage, malodor noted. Hyperpigmentation noted on the right foot up to the level of the metartarsal neck. MSK: Muscle power 4/5 in all muscle groups on the R side and 5/5 in all muscle groups of the L side. Patient unable to bend any digits of right foot - Neurological Exam Neurological Exam: Alert, Awake, Oriented x3 - Psychiatric Exam Psychiatric exam: Normal Affect, Normal Mood Assessment and Plan - Assessment and Plan (Free Text) Assessment: A 61 y/o M patient for gangrenous, infected right second and third toe with ischemic changes to 4th and 5th digits as well Plan: Patient evaluated and chart reviewed Plan discussed in detail with attending, Dr. Pham Discussed with the patient the need to do amputation which might extend to the level of metatarsals Dr. Pham would like to schedule surgery for this week pending vascular studies Culture results: Gram negative rods (preliminary) Vascular Surgery ordered CT/Angiogram for today (08/12/17) Infectious disease consulted Right foot x-ray: soft tissue swelling, osseous abnormality noted in the distal aspect of the forefoot JASON/PVR ordered - scheduled for today mid-day Foot dressed with betadine and DSD Patient expressed verbal understanding Podiatry will continue to follow while patient in house
[2017-08-12] MEDS ORDERED: Iodixanol 320 MG/ML 100 ML BOTTLE IV ONE (10:31)
[2017-08-12] MEDS ORDERED: Sodium Chloride 0.9% 50 ML IV ONE (10:31)
--- NOTE | 2017-08-12 14:14 | CT ---
PROCEDURE: CT Angiography Abdomen, Pelvis and Lower Extremity with Contrast HISTORY: gangrene toes COMPARISON: None. TECHNIQUE: Technique: CT angiography of the abdomen, pelvis and bilateral lower extremities performed in the arterial phase of enhancement. Coronal and sagittal reformats, and well as rotating MIP images of the vessels generated at the workstation. Intravenous contrast dose: 99 cubic centimeters Visipaque 320 Radiation dose: Total exam DLP = 708.80 MGy-cm. This CT exam was performed using one or more of the following dose reduction techniques: Automated exposure control, adjustment of the mA and/or kV according to patient size, and/or use of iterative reconstruction technique. FINDINGS: CT ANGIOGRAPHY: ABDOMINAL AORTA:: Mild calcific throughout and without stenosis. MAJOR AORTIC BRANCHES: Celiac Torrance: Unremarkable. Superior mesenteric artery: Short segment 70 percent stenosis of the SMA. Inferior mesenteric artery: Unremarkable. Renal arteries: Unremarkable. PELVIC ARTERIES: Right Common Iliac: Unremarkable. Right External Iliac: Unremarkable. Right Internal Iliac: Heavily calcified and severely stenotic. Left Common Iliac: Unremarkable. Left External Iliac: Unremarkable. Left Internal Iliac: A calcified and severely stenotic. RIGHT LOWER EXTREMITY ARTERIES: Right Common Femoral: Moderate calcific plaque but otherwise unremarkable. Right Superficial Femoral: Chronic occlusion of the SFA. Right Profunda Femoris: Unremarkable. Right Popliteal:Reconstitution of the occluded SFA at the mid popliteal level. There is bulky calcific plaque in the below-knee popliteal artery with moderate stenosis in this area. Right Anterior Tibial: Heavily calcified in the proximal segment and occludes. Right Tibioperoneal Trunk: Moderate calcific plaque with moderate stenosis of the tibioperoneal trunk. Right Posterior Tibial: Unremarkable. Right Peroneal: Unremarkable. Right dorsalis pedis : Unremarkable. LEFT LOWER EXTREMITY ARTERIES: Left Common Femoral: Unremarkable. Left Superficial Femoral: Chronic occlusion of the SFA with no reconstitution. Left Profunda Femoris: Unremarkable. Left Popliteal: Flow in the below-knee popliteal artery via collaterals. Bulky calcific plaque in the mid popliteal artery. Left Anterior Tibial: Heavily calcified in the proximal segment with moderate stenosis in this segment but and remains patent. . Left Tibioperoneal Trunk: Unremarkable. Left Posterior Tibial: Moderate calcific plaque in the mid segment but otherwise unremarkable. Left Peroneal: No appreciable flow within the proximal peroneal artery. The mid and distal peroneal artery has some flow noted. Left Dorsalis pedis: Unremarkable. NON-ANGIOGRAPHIC ASPECT OF THE EXAM: LOWER THORAX: Unremarkable. LIVER: Air within the left hepatic bile duct. GALLBLADDER AND BILE DUCTS: Not identified. Likely surgically absent. PANCREAS: There is pancreatic ductal dilatation measuring up to 7.5 millimeter. There is significant fullness in the pancreatic head. Phase of contrast limits evaluation of the pancreas. SPLEEN: Unremarkable. ADRENALS: Unremarkable. No mass. KIDNEYS AND URETERS: Unremarkable. No hydronephrosis. No solid mass. STOMACH AND BOWEL: Limited evaluation without PO contrast. Unable to comment on the presence or absence of mass. APPENDIX: Normal appendix. PERITONEUM: Unremarkable. No free fluid. No free air. LYMPH NODES: Unremarkable. No enlarged lymph nodes. BLADDER: Unremarkable. REPRODUCTIVE: Unremarkable. BONES: No acute fracture. OTHER FINDINGS: None. IMPRESSION: CT ANGIOGRAM ABDOMEN/PELVIS: 1. No significant stenosis within the ureter or pelvic arteries. 2. There is 60 percent stenosis of the proximal SMA. RIGHT LOWER EXTREMITY CT ANGIOGRAM: 1. Chronic occlusion of the SFA. There is reconstitution of the mid popliteal artery. There is also bulky calcific plaque in the popliteal artery with moderate stenosis. 2. Common femoral artery and profunda femoral artery are unremarkable. 3. Runoff shows occluded anterior tibial artery. There is moderate calcific plaque of the tibioperoneal artery moderate stenosis. The peroneal and posterior tibial artery are patent. LEFT LOWER EXTREMITY CT ANGIOGRAM: 1. Chronic occlusion the SFA with reconstitution of the below-knee popliteal artery. 2. Common femoral artery profunda artery. 3. Runoff shows new moderate calcific plaque in the proximal anterior tibial artery with moderate stenosis in this segment. Anterior tibial artery is otherwise unremarkable. There is also severe stenosis of the proximal peroneal artery. There is some flow seen within the mid and distal peroneal artery. There is moderate plaque within the mid posterior tibial artery which is otherwise unremarkable. NONVASCULAR FINDINGS: 1. Left hepatic pneumobilia. 2. There is fullness of the pancreatic head and also pancreatic ductal dilatation measuring 7.5 millimeters. Please correlate clinically and recommend MRCP.
--- NOTE | 2017-08-12 14:42 | CP.PCM.PN ---
Subjective - Date & Time of Evaluation Date of Evaluation: 08/12/17 Time of Evaluation: 14:40 - Subjective Subjective: I D NOTE CULTURE:PSEUDOMONAS (+) BORDERLINE MICs for zosyn,WOULD D/C AND START CIPRO CONTINUE VANCOMYCIN VANCO TROUGH ORDERED Objective - Vital Signs/Intake and Output Vital Signs (last 24 hours): Temp Pulse Resp BP Pulse Ox 98.4 F 79 20 146/76 99 08/12/17 08:02 08/12/17 08:02 08/12/17 08:02 08/12/17 08:02 08/12/17 08:02 - Medications Medications: Current Medications Acetaminophen (Tylenol 325mg Tab) 650 mg PO Q6 PRN PRN Reason: Pain, Mild (1-3) Last Admin: 08/12/17 08:54 Dose: 650 mg Aspirin (Aspirin Chewable) 81 mg PO DAILY [facility] Last Admin: 08/12/17 08:55 Dose: 81 mg Atorvastatin Calcium (Lipitor) 40 mg PO DAILY [facility] Last Admin: 08/12/17 08:55 Dose: 40 mg Enoxaparin Sodium (Lovenox) 40 mg SC HS [facility] PRN Reason: Protocol Last Admin: 08/11/17 22:16 Dose: 40 mg Hydrochlorothiazide (Hydrodiuril) 25 mg PO DAILY [facility] Last Admin: 08/12/17 08:55 Dose: 25 mg Vancomycin HCl 1 gm/ Sodium (Chloride) 250 mls @ 166.667 mls/hr IVPB DAILY [facility] PRN Reason: Protocol Last Admin: 08/12/17 08:56 Dose: 166.667 mls/hr Piperacillin Sod/Tazobactam (Sod 4.5 gm/ Sodium Chloride) 100 mls @ 100 mls/hr IVPB Q8@0700,1500,2300 [facility] PRN Reason: Protocol Last Admin: 08/12/17 06:02 Dose: 100 mls/hr Ciprofloxacin (Cipro 400mg/200ml Dsw) 400 mg in 200 mls @ 200 mls/hr IVPB Q12 [facility] PRN Reason: Protocol Lorazepam (Ativan) 2 mg IVP Q6 PRN PRN Reason: Agitation Nicotine (Nicoderm Cq) 1 patch TD DAILY [facility] Last Admin: 08/12/17 08:55 Dose: 1 patch - Labs Labs: 08/12/17 05:55 08/11/17 05:50 PT 13.5 Seconds (9.8-13.1) H 08/10/17 11:35 INR 1.2 (0.9-1.2) 08/10/17 11:35 APTT 38.1 Seconds (25.6-37.1) H 08/10/17 11:35
--- NOTE | 2017-08-12 15:25 | CP.PCM.PN ---
Subjective - Date & Time of Evaluation Date of Evaluation: 08/12/17 Time of Evaluation: 15:25 - Subjective Subjective: This is a 61 yrs old male who has a /o HTN, Hyperlipidemia and DM. He has gangrene on the right foot and is on antibiotics for the same. On admission the pt had a cbc as follows; WBC 12.1, On 08/12/17 the cbc showed WBC 12.1, hgb 13.5gms, platelets 481K.gb 15.4gm and platelets 575K A consult was called for the thrombocytosis. Pt is not a smoker Objective - Vital Signs/Intake and Output Vital Signs (last 24 hours): Temp Pulse Resp BP Pulse Ox 98.4 F 79 20 146/76 99 08/12/17 08:02 08/12/17 08:02 08/12/17 08:02 08/12/17 08:02 08/12/17 08:02 - Medications Medications: Current Medications Acetaminophen (Tylenol 325mg Tab) 650 mg PO Q6 PRN PRN Reason: Pain, Mild (1-3) Last Admin: 08/12/17 08:54 Dose: 650 mg Aspirin (Aspirin Chewable) 81 mg PO DAILY [facility] Last Admin: 08/12/17 08:55 Dose: 81 mg Atorvastatin Calcium (Lipitor) 40 mg PO DAILY [facility] Last Admin: 08/12/17 08:55 Dose: 40 mg Enoxaparin Sodium (Lovenox) 40 mg SC HS [facility] PRN Reason: Protocol Last Admin: 08/11/17 22:16 Dose: 40 mg Hydrochlorothiazide (Hydrodiuril) 25 mg PO DAILY [facility] Last Admin: 08/12/17 08:55 Dose: 25 mg Vancomycin HCl 1 gm/ Sodium (Chloride) 250 mls @ 166.667 mls/hr IVPB DAILY [facility] PRN Reason: Protocol Last Admin: 08/12/17 08:56 Dose: 166.667 mls/hr Ciprofloxacin (Cipro 400mg/200ml Dsw) 400 mg in 200 mls @ 200 mls/hr IVPB Q12 [facility] PRN Reason: Protocol Lorazepam (Ativan) 2 mg IVP Q6 PRN PRN Reason: Agitation Nicotine (Nicoderm Cq) 1 patch TD DAILY [facility] Last Admin: 08/12/17 08:55 Dose: 1 patch - Labs Labs: 08/12/17 05:55 08/11/17 05:50 PT 13.5 Seconds (9.8-13.1) H 08/10/17 11:35 INR 1.2 (0.9-1.2) 08/10/17 11:35 APTT 38.1 Seconds (25.6-37.1) H 08/10/17 11:35 - Additional Findings Additional findings: Physical,exam; alert, well oriented in no acute distress Neck; supple, no adenopathy Chest; clear, no rales no rhonchi Heart; RSR no murmur Abd; Soft no mass, no h/s megaly Assessment and Plan - Assessment and Plan (Free Text) Plan: Impression; Reactive thrombocytosis Plan; Will follow up the CBC
[2017-08-12] MEDS: Ciprofloxacin 400mg/200ml D5W 400 MG/200 ML BAG IVPB SCH (21:20)
[2017-08-12] MEDS: Enoxaparin 40 mg Syringe SC SCH (21:23)
[2017-08-13] MEDS ORDERED: Oxycodone/Acetaminophen 5/325 mg Tab PO PRN (01:37)
[2017-08-13 06:44] LABS: BASO # 0.1 K/uL (0.0-0.2); EOS # 0.6 K/uL (0.0-0.7); EOS % 5.2 % (0.0-4.0); LYMPH # 3.2 K/uL (1.0-4.3); LYMPH % 29.9 % (20.0-40.0); MEAN CELL VOLUME 95.3 fl (80.0-94.0); MEAN CORPUSCULAR HEMOGLOBIN 32.5 pg (27.0-31.0); MEAN CORPUSCULAR HGB CONC 34.1 g/dL (33.0-37.0); MEAN PLATELET VOLUME 9.6 fl (7.2-11.7); MONO # 0.7 K/uL (0.0-0.8); MONO % 6.5 % (0.0-10.0); NEUT % 57.4 % (50.0-75.0); NRBC % 0.1 % (0.0-0.0); RBC 4.32 Mil/uL (4.40-5.90); WHITE BLOOD COUNT 10.6 K/uL (4.8-10.8)
--- NOTE | 2017-08-13 07:00 | CP.PCM.PN ---
<Birdie Lane - Last Filed: 08/13/17 11:26> Subjective - Date & Time of Evaluation Date of Evaluation: 08/13/17 Time of Evaluation: 07:00 - Subjective Subjective: No acute overnight events. pt states that he is having dizziness with Percocet, and would like a different medication for pain. Denies fever, chills, chest pain or dyspnea. Objective - Vital Signs/Intake and Output Vital Signs (last 24 hours): Temp Pulse Resp BP Pulse Ox 99.2 F 89 19 149/77 99 08/12/17 23:51 08/12/17 23:51 08/12/17 23:51 08/12/17 23:51 08/12/17 23:51 - Medications Medications: Current Medications Acetaminophen (Tylenol 325mg Tab) 650 mg PO Q6 PRN PRN Reason: Pain, Mild (1-3) Last Admin: 08/13/17 01:42 Dose: 650 mg Aspirin (Aspirin Chewable) 81 mg PO DAILY [facility] Last Admin: 08/12/17 08:55 Dose: 81 mg Atorvastatin Calcium (Lipitor) 40 mg PO DAILY [facility] Last Admin: 08/12/17 08:55 Dose: 40 mg Enoxaparin Sodium (Lovenox) 40 mg SC HS [facility] PRN Reason: Protocol Last Admin: 08/12/17 21:23 Dose: 40 mg Hydrochlorothiazide (Hydrodiuril) 25 mg PO DAILY [facility] Last Admin: 08/12/17 08:55 Dose: 25 mg Vancomycin HCl 1 gm/ Sodium (Chloride) 250 mls @ 166.667 mls/hr IVPB DAILY [facility] PRN Reason: Protocol Last Admin: 08/12/17 08:56 Dose: 166.667 mls/hr Ciprofloxacin (Cipro 400mg/200ml Dsw) 400 mg in 200 mls @ 200 mls/hr IVPB Q12 [facility] PRN Reason: Protocol Last Admin: 08/12/17 21:20 Dose: 200 mls/hr Lorazepam (Ativan) 2 mg IVP Q6 PRN PRN Reason: Agitation Nicotine (Nicoderm Cq) 1 patch TD DAILY [facility] Last Admin: 08/12/17 08:55 Dose: 1 patch Oxycodone/Acetaminophen (Percocet 5/325 Mg Tab) 1 tab PO Q6 PRN PRN Reason: Pain, severe (8-10) Stop: 07/01/18 01:38 Last Admin: 08/13/17 06:46 Dose: 1 tab - Labs Labs: 08/12/17 05:55 08/11/17 05:50 PT 13.5 Seconds (9.8-13.1) H 08/10/17 11:35 INR 1.2 (0.9-1.2) 08/10/17 11:35 APTT 38.1 Seconds (25.6-37.1) H 08/10/17 11:35 - Constitutional Appears: No Acute Distress - Head Exam Head Exam: NORMAL INSPECTION - Eye Exam Eye Exam: EOMI, Normal appearance - ENT Exam ENT Exam: Mucous Membranes Moist - Respiratory Exam Respiratory Exam: Clear to Ausculation Bilateral, NORMAL BREATHING PATTERN. absent: Wheezes - Cardiovascular Exam Cardiovascular Exam: REGULAR RHYTHM, +S1, +S2 - GI/Abdominal Exam GI & Abdominal Exam: Soft, Normal Bowel Sounds. absent: Tenderness - Extremities Exam Extremities Exam: absent: Calf Tenderness Additional comments: RLE in dressing, no exudates noted on the dressing Full ROM b/l Pain with ambulating in the RLE - Back Exam Back Exam: NORMAL INSPECTION - Neurological Exam Neurological Exam: Alert, Awake, Oriented x3 - Psychiatric Exam Psychiatric exam: Normal Affect, Normal Mood Assessment and Plan - Assessment and Plan (Free Text) Assessment: Assessment/Plan: 61 YO Male with PMHx of HTN, HLD, and prediabetes is admitted for R 2nd and 3rd toe gangrene, and lower extremities claudication. Toe Gangrene, claudication -2nd and 3rd toe wet/dry gangrene -ID on board; c/w vanc and cipro -wound culture; pseudomonas sensitivity appreciated -Vanc/cipro, total abx D4, vanc trough <5, will repeat tomorrow per ID -Podiatry on board; amputation potentially to the level of transmetatarsals -Vascular consulted; Dr. Hightower, will cont abx and vascular procedure Thursday -Angiogram; R chronic occulusion of SFA, occluded anterior tibial artery (see report for findings) -Pain management: Tylenol, ultram and Toradol; d/c Percocet -Vanc trough tomorrow Thrombycytosis -elevated PLTs 512 today -likely acute phase reactant, reactive -Hem/Onc consulted, no acute interventions at this time, likely reactive thrombosis. Out patient CBC in 2-3 weeks HTN -stable, chronic -c/w home meds Prediabetes -HbA1c 6.2 (04/2017) -stable, no meds at this time HLD -stable -c/w home meds -c/w asa 81mg ETOH, smoking Abuse -CIWA protocol, CIWA 0 this AM -ativan 2mg for CIWA >8 -c/w nicotine patch DVT prophyx -Lovenox sc <Casi Lynn - Last Filed: 08/13/17 13:14> Objective - Vital Signs/Intake and Output Vital Signs (last 24 hours): Temp Pulse Resp BP Pulse Ox 97.4 F L 83 20 161/75 H 100 08/13/17 07:50 08/13/17 07:50 08/13/17 07:50 08/13/17 07:50 08/13/17 07:50 - Medications Medications: Current Medications Acetaminophen (Tylenol 325mg Tab) 650 mg PO Q6 PRN PRN Reason: Pain, Mild (1-3) Last Admin: 08/13/17 01:42 Dose: 650 mg Aspirin (Aspirin Chewable) 81 mg PO DAILY [facility] Last Admin: 08/13/17 08:33 Dose: 81 mg Atorvastatin Calcium (Lipitor) 40 mg PO DAILY [facility] Last Admin: 08/13/17 08:33 Dose: 40 mg Enoxaparin Sodium (Lovenox) 40 mg SC HS [facility] PRN Reason: Protocol Last Admin: 08/12/17 21:23 Dose: 40 mg Hydrochlorothiazide (Hydrodiuril) 25 mg PO DAILY [facility] Last Admin: 08/13/17 08:34 Dose: 25 mg Vancomycin HCl 1 gm/ Sodium (Chloride) 250 mls @ 166.667 mls/hr IVPB DAILY [facility] PRN Reason: Protocol Last Admin: 08/13/17 08:33 Dose: 166.667 mls/hr Ciprofloxacin (Cipro 400mg/200ml Dsw) 400 mg in 200 mls @ 200 mls/hr IVPB Q12 [facility] PRN Reason: Protocol Last Admin: 08/13/17 08:33 Dose: 200 mls/hr Ketorolac Tromethamine (Toradol) 15 mg IVP Q6 PRN PRN Reason: Pain, severe (8-10) Lorazepam (Ativan) 2 mg IVP Q6 PRN PRN Reason: Agitation Nicotine (Nicoderm Cq) 1 patch TD DAILY [facility] Last Admin: 08/13/17 08:34 Dose: 1 patch Tramadol HCl (Ultram) 50 mg PO Q6 PRN PRN Reason: Pain, moderate (4-7) - Labs Labs: 08/13/17 06:00 08/11/17 05:50 PT 13.5 Seconds (9.8-13.1) H 08/10/17 11:35 INR 1.2 (0.9-1.2) 08/10/17 11:35 APTT 38.1 Seconds (25.6-37.1) H 08/10/17 11:35 Attending/Attestation - Attestation I have personally seen and examined this patient.: Yes I have fully participated in the care of the patient.: Yes I have reviewed all pertinent clinical information, including history, physical exam and plan: Yes Notes (Text): 08/13/17 13:14 Attending Note ATTESTATION. Patient seen and examined. Case discussed with resident. Agree with findings and plan.
[2017-08-13] MEDS: Ciprofloxacin 400mg/200ml D5W 400 MG/200 ML BAG IVPB SCH ×2 (08:33→21:27)
--- NOTE | 2017-08-13 08:48 | CP.PCM.PN ---
Subjective - Date & Time of Evaluation Date of Evaluation: 08/13/17 Time of Evaluation: 08:46 - Subjective Subjective: Podiatry Progress Note for attending, Dr. Pham A 61 y/o male seen at bedside for gangrenous right 2nd and 3rd digits. Patient is AAOX3 and in no acute distress. Patient is complaining of pain. Patient states he has difficulty keeping his legs in bed due to pain and feels better when he is walking around or when his legs are hanging over the edge of the bed. Patient denies any overnight acute events. Patient denies any F/N/V/C or SOB recently. Objective - Vital Signs/Intake and Output Vital Signs (last 24 hours): Temp Pulse Resp BP Pulse Ox 97.4 F L 83 20 161/75 H 100 08/13/17 07:50 08/13/17 07:50 08/13/17 07:50 08/13/17 07:50 08/13/17 07:50 - Medications Medications: Current Medications Acetaminophen (Tylenol 325mg Tab) 650 mg PO Q6 PRN PRN Reason: Pain, Mild (1-3) Last Admin: 08/13/17 01:42 Dose: 650 mg Aspirin (Aspirin Chewable) 81 mg PO DAILY [facility] Last Admin: 08/13/17 08:33 Dose: 81 mg Atorvastatin Calcium (Lipitor) 40 mg PO DAILY [facility] Last Admin: 08/13/17 08:33 Dose: 40 mg Enoxaparin Sodium (Lovenox) 40 mg SC HS [facility] PRN Reason: Protocol Last Admin: 08/12/17 21:23 Dose: 40 mg Hydrochlorothiazide (Hydrodiuril) 25 mg PO DAILY [facility] Last Admin: 08/13/17 08:34 Dose: 25 mg Vancomycin HCl 1 gm/ Sodium (Chloride) 250 mls @ 166.667 mls/hr IVPB DAILY [facility] PRN Reason: Protocol Last Admin: 08/13/17 08:33 Dose: 166.667 mls/hr Ciprofloxacin (Cipro 400mg/200ml Dsw) 400 mg in 200 mls @ 200 mls/hr IVPB Q12 [facility] PRN Reason: Protocol Last Admin: 08/13/17 08:33 Dose: 200 mls/hr Lorazepam (Ativan) 2 mg IVP Q6 PRN PRN Reason: Agitation Nicotine (Nicoderm Cq) 1 patch TD DAILY [facility] Last Admin: 08/13/17 08:34 Dose: 1 patch Oxycodone/Acetaminophen (Percocet 5/325 Mg Tab) 1 tab PO Q6 PRN PRN Reason: Pain, severe (8-10) Stop: 08/16/17 01:38 Last Admin: 08/13/17 06:46 Dose: 1 tab - Labs Labs: 08/13/17 06:00 08/11/17 05:50 PT 13.5 Seconds (9.8-13.1) H 08/10/17 11:35 INR 1.2 (0.9-1.2) 08/10/17 11:35 APTT 38.1 Seconds (25.6-37.1) H 08/10/17 11:35 - Constitutional Appears: Well, Non-toxic, No Acute Distress - Head Exam Head Exam: ATRAUMATIC, NORMOCEPHALIC - Extremities Exam Additional comments: Right Lower Extremity focused exam Vasc: DP and PT Non palpable, Temp gradient warm to cool from proximal to distal , right second and third digit are cold to touch, CFT delayed x 8, minimal edema and erythema noted to the L foot up to the level of the malleoli Neuro: Grossly diminished to entire forefoot Derm: R 2nd and 3rd toes are necrotic and 4th and 5th digits are dusky and cool to touch, fissures noted in 2nd and 3rd interdigital spaces with mild active serosanguinous drainage, malodor noted. Hyperpigmentation noted on the right foot up to the level of the metartarsal neck. MSK: Muscle power 4/5 in all muscle groups on the R side and 5/5 in all muscle groups of the L side. Patient unable to bend any digits of right foot - Neurological Exam Neurological Exam: Alert, Awake, Oriented x3 - Psychiatric Exam Psychiatric exam: Normal Affect, Normal Mood Assessment and Plan - Assessment and Plan (Free Text) Assessment: A 61 y/o M patient for gangrenous, infected right second and third toe with ischemic changes to 4th and 5th digits as well Plan: Patient evaluated and chart reviewed Plan discussed in detail with attending, Dr. Pham Discussed with the patient the need to do amputation which might extend to the level of metatarsals Dr. Pham would like to schedule surgery pending vascular studies Culture results: Pseudomonas Aeruginosa ID on board- started on Cipro, continue Vanco, d/c Zosyn CT Angiogram: chronic occlusion SFA, calcified plaque popliteal artery, moderate stenosis; occluded ant tib artery, calcified tibioperoneal artery, moderate stenosis Dr. Hightower spoke to patient, patient aware potential Angiogram Thursday Right foot x-ray: soft tissue swelling, osseous abnormality noted in the distal aspect of the forefoot JASON/PVR ordered - scheduled for today mid-day Foot dressed with betadine and DSD Patient expressed verbal understanding Podiatry will continue to follow while patient in house and will plan surgery according to results of revascularization
[2017-08-13] MEDS: Enoxaparin 40 mg Syringe SC SCH (21:39)
--- NOTE | 2017-08-14 08:34 | CP.PCM.PN ---
Subjective - Date & Time of Evaluation Date of Evaluation: 08/14/17 Time of Evaluation: 08:31 - Subjective Subjective: Podiatry Progress Note for attending, Dr. Pham A 61 y/o male seen at bedside for gangrenous right 2nd and 3rd digits. Patient is AAOX3 and in no acute distress. Patient is complaining of pain, which patient states is relieved with Tylenol. Patient reports having difficulty keeping his legs in bed due to pain and feels better when he is ambulating or when his legs are hanging over the edge of the bed. Patient denies any overnight acute events. Patient denies any F/N/V/C or SOB recently. Objective - Vital Signs/Intake and Output Vital Signs (last 24 hours): Temp Pulse Resp BP Pulse Ox 97.8 F 78 20 176/84 H 100 08/14/17 07:38 08/14/17 07:38 08/14/17 07:38 08/14/17 07:38 08/14/17 07:38 - Medications Medications: Current Medications Acetaminophen (Tylenol 325mg Tab) 650 mg PO Q6 PRN PRN Reason: Pain, Mild (1-3) Last Admin: 08/14/17 00:45 Dose: 650 mg Aspirin (Aspirin Chewable) 81 mg PO DAILY [facility] Last Admin: 08/13/17 08:33 Dose: 81 mg Atorvastatin Calcium (Lipitor) 40 mg PO DAILY [facility] Last Admin: 08/13/17 08:33 Dose: 40 mg Enoxaparin Sodium (Lovenox) 40 mg SC HS [facility] PRN Reason: Protocol Last Admin: 08/13/17 21:39 Dose: 40 mg Hydrochlorothiazide (Hydrodiuril) 25 mg PO DAILY [facility] Last Admin: 08/13/17 08:34 Dose: 25 mg Vancomycin HCl 1 gm/ Sodium (Chloride) 250 mls @ 166.667 mls/hr IVPB DAILY [facility] PRN Reason: Protocol Last Admin: 08/13/17 08:33 Dose: 166.667 mls/hr Ciprofloxacin (Cipro 400mg/200ml Dsw) 400 mg in 200 mls @ 200 mls/hr IVPB Q12 [facility] PRN Reason: Protocol Last Admin: 08/13/17 21:27 Dose: 200 mls/hr Ketorolac Tromethamine (Toradol) 15 mg IVP Q6 PRN PRN Reason: Pain, severe (8-10) Lorazepam (Ativan) 2 mg IVP Q6 PRN PRN Reason: Agitation Nicotine (Nicoderm Cq) 1 patch TD DAILY [facility] Last Admin: 08/13/17 08:34 Dose: 1 patch Tramadol HCl (Ultram) 50 mg PO Q6 PRN PRN Reason: Pain, moderate (4-7) Last Admin: 08/13/17 21:37 Dose: 50 mg - Labs Labs: 08/13/17 06:00 08/11/17 05:50 PT 13.5 Seconds (9.8-13.1) H 08/10/17 11:35 INR 1.2 (0.9-1.2) 08/10/17 11:35 APTT 38.1 Seconds (25.6-37.1) H 08/10/17 11:35 - Constitutional Appears: Well, Non-toxic, No Acute Distress - Head Exam Head Exam: ATRAUMATIC, NORMOCEPHALIC - Extremities Exam Additional comments: Right Lower Extremity focused exam Vasc: DP and PT Non palpable, Temp gradient warm to cool from proximal to distal , right second and third digit are cold to touch, CFT delayed x 8, minimal edema and erythema noted to the L foot up to the level of the malleoli Neuro: Grossly diminished to entire forefoot Derm: R 2nd and 3rd toes are necrotic and 4th and 5th digits are dusky and cool to touch, fissures noted in 2nd and 3rd interdigital spaces with mild active serosanguinous drainage, malodor noted. Hyperpigmentation noted on the right foot up to the level of the metartarsal neck. MSK: Muscle power 4/5 in all muscle groups on the R side and 5/5 in all muscle groups of the L side. Patient unable to bend any digits of right foot - Neurological Exam Neurological Exam: Alert, Awake, Oriented x3 - Psychiatric Exam Psychiatric exam: Normal Affect, Normal Mood Assessment and Plan - Assessment and Plan (Free Text) Assessment: A 61 y/o male patient admitted for gangrenous, infected right second and third digit with ischemic changes to 4th and 5th digits as well Plan: Patient evaluated and chart reviewed Plan discussed in detail with attending, Dr. Ankit Pham would like to schedule surgery pending vascular studies Culture results: Pseudomonas Aeruginosa ID on board- started on Cipro, continue Vanco, d/c Zosyn CT Angiogram: chronic occlusion SFA, calcified plaque popliteal artery, moderate stenosis; occluded ant tib artery, calcified tibioperoneal artery, moderate stenosis Dr. Hightower spoke to patient, patient aware potential Angiogram Thursday08/17/17 Right foot x-ray: soft tissue swelling, osseous abnormality noted in the distal aspect of the forefoot JASON/PVR ordered - scheduled for today mid-day Foot dressed with betadine, Tefla and DSD Patient expressed verbal understanding Podiatry will continue to follow while patient in house and will plan surgery according to results of re-vascularization
[2017-08-14] MEDS: Ciprofloxacin 400mg/200ml D5W 400 MG/200 ML BAG IVPB SCH ×2 (09:00→21:08)
--- NOTE | 2017-08-14 09:31 | CP.PCM.PN ---
<Birdie Lane - Last Filed: 08/14/17 14:35> Subjective - Date & Time of Evaluation Date of Evaluation: 08/14/17 Time of Evaluation: 09:28 - Subjective Subjective: No acute overnight events. Pt is doing well this morning. States that the new pain meds are working well, he no longer has any dizziness or any other side- effects from the meds. Pt states that this morning someone stepped on his foot this AM, but pain is otherwise well controlled. Objective - Vital Signs/Intake and Output Vital Signs (last 24 hours): Temp Pulse Resp BP Pulse Ox 97.8 F 78 20 176/84 H 100 08/14/17 07:38 08/14/17 07:38 08/14/17 07:38 08/14/17 07:38 08/14/17 07:38 - Medications Medications: Current Medications Acetaminophen (Tylenol 325mg Tab) 650 mg PO Q6 PRN PRN Reason: Pain, Mild (1-3) Last Admin: 08/14/17 00:45 Dose: 650 mg Aspirin (Aspirin Chewable) 81 mg PO DAILY [facility] Last Admin: 08/13/17 08:33 Dose: 81 mg Atorvastatin Calcium (Lipitor) 40 mg PO DAILY [facility] Last Admin: 08/13/17 08:33 Dose: 40 mg Enoxaparin Sodium (Lovenox) 40 mg SC HS [facility] PRN Reason: Protocol Last Admin: 08/13/17 21:39 Dose: 40 mg Hydrochlorothiazide (Hydrodiuril) 25 mg PO DAILY [facility] Last Admin: 08/13/17 08:34 Dose: 25 mg Ciprofloxacin (Cipro 400mg/200ml Dsw) 400 mg in 200 mls @ 200 mls/hr IVPB Q12 [facility] PRN Reason: Protocol Last Admin: 08/13/17 21:27 Dose: 200 mls/hr Ketorolac Tromethamine (Toradol) 15 mg IVP Q6 PRN PRN Reason: Pain, severe (8-10) Lorazepam (Ativan) 2 mg IVP Q6 PRN PRN Reason: Agitation Nicotine (Nicoderm Cq) 1 patch TD DAILY [facility] Last Admin: 08/13/17 08:34 Dose: 1 patch Tramadol HCl (Ultram) 50 mg PO Q6 PRN PRN Reason: Pain, moderate (4-7) Last Admin: 08/13/17 21:37 Dose: 50 mg - Labs Labs: 08/13/17 06:00 08/11/17 05:50 PT 13.5 Seconds (9.8-13.1) H 08/10/17 11:35 INR 1.2 (0.9-1.2) 08/10/17 11:35 APTT 38.1 Seconds (25.6-37.1) H 08/10/17 11:35 - Constitutional Appears: No Acute Distress - Head Exam Head Exam: NORMAL INSPECTION - Eye Exam Eye Exam: EOMI, Normal appearance - ENT Exam ENT Exam: Mucous Membranes Moist - Respiratory Exam Respiratory Exam: Clear to Ausculation Bilateral, NORMAL BREATHING PATTERN. absent: Rhonchi, Wheezes - Cardiovascular Exam Cardiovascular Exam: REGULAR RHYTHM, +S1, +S2 - GI/Abdominal Exam GI & Abdominal Exam: Soft, Normal Bowel Sounds. absent: Tenderness - Extremities Exam Extremities Exam: Pedal Edema (1+ pitting edema in the RLE up to the mid-[place]). absent: Calf Tenderness Additional comments: RLE in dressing, no exudates noted on the dressing. Ambulating full ROM in LLE - Back Exam Back Exam: NORMAL INSPECTION - Neurological Exam Neurological Exam: Alert, Awake, Oriented x3 - Psychiatric Exam Psychiatric exam: Normal Affect, Normal Mood Assessment and Plan - Assessment and Plan (Free Text) Assessment: Assessment/Plan: 61 YO Male with PMHx of HTN, HLD, and pre-diabetes is admitted for R 2nd and 3rd toe gangrene, and lower extremities claudication (PAD). Toe Gangrene, claudication -2nd and 3rd toe wet/dry gangrene -likely 2/2 to PAD and poor vascular supply -wound culture; pseudomonas sensitivity appreciated -Vanc/cipro, total abx D5, vanc trough <5 -ID on board; c/w vanc and cipro, low trough will increase Vanc to 1.25mg BID -Podiatry on board; amputation potentially to the level of transmetatarsal -Vascular on board -Pain management: cont Tylenol, ultram and Toradol prn -vanc trough 6/30 before evening dose Peripheral vascular disease -Vascular consulted; Dr. Hightower, will cont abx and vascular procedure Thursday -Angiogram; R chronic occlusion of SFA, occluded anterior tibial artery (see report for findings) Thrombocytosis -stable -likely acute phase reactant, reactive -Hem/Onc consulted, no acute interventions at this time, likely reactive thrombosis. Out patient CBC in 2-3 weeks HTN -stable, chronic -c/w home meds Prediabetes -HbA1c 6.2 (04/2017) -stable, no meds at this time HLD -stable -c/w home meds -c/w asa 81mg ETOH, smoking Abuse -CIWA protocol, CIWA 0 this AM -ativan 2mg for CIWA >8 -c/w nicotine patch DVT prophyx -Lovenox sc <Casi Lynn - Last Filed: 08/14/17 15:00> Objective - Vital Signs/Intake and Output Vital Signs (last 24 hours): Temp Pulse Resp BP Pulse Ox 97.8 F 78 20 176/84 H 100 08/14/17 07:38 08/14/17 07:38 08/14/17 07:38 08/14/17 07:38 08/14/17 07:38 - Medications Medications: Current Medications Acetaminophen (Tylenol 325mg Tab) 650 mg PO Q6 PRN PRN Reason: Pain, Mild (1-3) Last Admin: 08/14/17 00:45 Dose: 650 mg Aspirin (Aspirin Chewable) 81 mg PO DAILY [facility] Last Admin: 08/14/17 09:00 Dose: 81 mg Atorvastatin Calcium (Lipitor) 40 mg PO DAILY [facility] Last Admin: 08/14/17 09:00 Dose: 40 mg Enoxaparin Sodium (Lovenox) 40 mg SC HS [facility] PRN Reason: Protocol Last Admin: 08/13/17 21:39 Dose: 40 mg Hydrochlorothiazide (Hydrodiuril) 25 mg PO DAILY [facility] Last Admin: 08/14/17 09:00 Dose: 25 mg Ciprofloxacin (Cipro 400mg/200ml Dsw) 400 mg in 200 mls @ 200 mls/hr IVPB Q12 [facility] PRN Reason: Protocol Last Admin: 08/14/17 09:00 Dose: 200 mls/hr Vancomycin HCl 1.25 gm/ Sodium (Chloride) 250 mls @ 166.667 mls/hr IVPB BID [facility] PRN Reason: Protocol Ketorolac Tromethamine (Toradol) 15 mg IVP Q6 PRN PRN Reason: Pain, severe (8-10) Lorazepam (Ativan) 2 mg IVP Q6 PRN PRN Reason: Agitation Nicotine (Nicoderm Cq) 1 patch TD DAILY [facility] Last Admin: 08/14/17 14:01 Dose: 1 patch Tramadol HCl (Ultram) 50 mg PO Q6 PRN PRN Reason: Pain, moderate (4-7) Last Admin: 08/13/17 21:37 Dose: 50 mg - Labs Labs: 08/13/17 06:00 08/11/17 05:50 PT 13.5 Seconds (9.8-13.1) H 08/10/17 11:35 INR 1.2 (0.9-1.2) 08/10/17 11:35 APTT 38.1 Seconds (25.6-37.1) H 08/10/17 11:35 Attending/Attestation - Attestation I have personally seen and examined this patient.: Yes I have fully participated in the care of the patient.: Yes I have reviewed all pertinent clinical information, including history, physical exam and plan: Yes Notes (Text): 08/14/17 14:59 Attending note ATTESTATION - Patient seen and examined. Case discussed with resident. Agree with findings and plan. Good pain relief with tramadol without side effects.
[2017-08-14] MEDS: Enoxaparin 40 mg Syringe SC SCH (21:08)
--- NOTE | 2017-08-15 07:45 | CP.PCM.PN ---
<Danielle Simmons - Last Filed: 08/15/17 15:32> Subjective - Date & Time of Evaluation Date of Evaluation: 08/15/17 Time of Evaluation: 07:45 - Subjective Subjective: 61M seen and examined at bedside with attending. No acute events overnight. Pt feels "pretty good" and denies SOB, chills, chest pain, or headache. Otherwise, no acute complaints. Objective - Vital Signs/Intake and Output Vital Signs (last 24 hours): Temp Pulse Resp BP Pulse Ox 36.8 C 93 H 18 157/84 H 98 08/15/17 00:04 08/15/17 00:04 08/15/17 00:04 08/15/17 00:04 08/15/17 00:04 - Medications Medications: Current Medications Acetaminophen (Tylenol 325mg Tab) 650 mg PO Q6 PRN PRN Reason: Pain, Mild (1-3) Last Admin: 08/14/17 00:45 Dose: 650 mg Aspirin (Aspirin Chewable) 81 mg PO DAILY [facility] Last Admin: 08/14/17 09:00 Dose: 81 mg Atorvastatin Calcium (Lipitor) 40 mg PO DAILY [facility] Last Admin: 08/14/17 09:00 Dose: 40 mg Enoxaparin Sodium (Lovenox) 40 mg SC HS [facility] PRN Reason: Protocol Last Admin: 08/14/17 21:08 Dose: 40 mg Hydrochlorothiazide (Hydrodiuril) 25 mg PO DAILY [facility] Last Admin: 08/14/17 09:00 Dose: 25 mg Ciprofloxacin (Cipro 400mg/200ml Dsw) 400 mg in 200 mls @ 200 mls/hr IVPB Q12 [facility] PRN Reason: Protocol Last Admin: 08/14/17 21:08 Dose: 200 mls/hr Vancomycin HCl 1.25 gm/ Sodium (Chloride) 250 mls @ 166.667 mls/hr IVPB BID [facility] PRN Reason: Protocol Last Admin: 08/14/17 17:30 Dose: 166.667 mls/hr Ketorolac Tromethamine (Toradol) 15 mg IVP Q6 PRN PRN Reason: Pain, severe (8-10) Lorazepam (Ativan) 2 mg IVP Q6 PRN PRN Reason: Agitation Nicotine (Nicoderm Cq) 1 patch TD DAILY [facility] Last Admin: 08/14/17 14:01 Dose: 1 patch Tramadol HCl (Ultram) 50 mg PO Q6 PRN PRN Reason: Pain, moderate (4-7) Last Admin: 08/15/17 07:32 Dose: 50 mg - Labs Labs: 08/13/17 06:00 08/11/17 05:50 PT 13.5 Seconds (9.8-13.1) H 08/10/17 11:35 INR 1.2 (0.9-1.2) 08/10/17 11:35 APTT 38.1 Seconds (25.6-37.1) H 08/10/17 11:35 - Constitutional Appears: Non-toxic, No Acute Distress - Head Exam Head Exam: ATRAUMATIC - Eye Exam Eye Exam: Normal appearance - ENT Exam ENT Exam: Mucous Membranes Moist - Respiratory Exam Respiratory Exam: Clear to Ausculation Bilateral, NORMAL BREATHING PATTERN - Cardiovascular Exam Cardiovascular Exam: REGULAR RHYTHM - GI/Abdominal Exam GI & Abdominal Exam: Soft, Normal Bowel Sounds - Extremities Exam Additional comments: Patient continues to be more comfortable with RIGHT foot hanging over edge of bed c/w rest pain noted on initial presentation. - Neurological Exam Neurological Exam: Alert, Awake, Oriented x3 - Psychiatric Exam Psychiatric exam: Normal Affect, Normal Mood - Skin Skin Exam: Dry, Warm Assessment and Plan - Assessment and Plan (Free Text) Assessment: 61M continuing with course of IV antibiotics prior to vascular intervention necessary before podiatric intervention. BP not well-controlled so Norvasc added today. Otherwise, leukocytosis has resolved. Plan: Diet: Heart Healthy/MODCHO DVT Prophylaxis: Lovenox SC Rt Foot 2nd/3rd toe gangrene: abx adjust Vanc as indicated by vanc trough, podiatry HTN: chronic, asymptomatic, not controlled; c/w HCTZ/ASA, Norvasc added HLD: c/w Atorvastatin Prediabetes: Diet control Podiatry Consult: daily drsgs, awaiting vascular intervention to intervene ID Consult (Keron): Vanc/Cipro, vanc trough Labs in AM to include vanc trough Dispo: 08/21/17 pending vascular/podiatry interventions (needs disability paperwork completed prior to discharge) <Casi Lynn - Last Filed: 08/16/17 08:40> Objective - Vital Signs/Intake and Output Vital Signs (last 24 hours): Temp Pulse Resp BP Pulse Ox 98.3 F 89 20 134/76 98 08/16/17 08:24 08/16/17 08:24 08/16/17 08:24 08/16/17 08:24 08/16/17 08:24 - Medications Medications: Current Medications Acetaminophen (Tylenol 325mg Tab) 650 mg PO Q6 PRN PRN Reason: Pain, Mild (1-3) Last Admin: 08/15/17 21:49 Dose: 650 mg Amlodipine Besylate (Norvasc) 5 mg PO DAILY [facility] Last Admin: 08/15/17 17:09 Dose: 5 mg Aspirin (Aspirin Chewable) 81 mg PO DAILY [facility] Last Admin: 08/15/17 09:10 Dose: 81 mg Atorvastatin Calcium (Lipitor) 40 mg PO DAILY [facility] Last Admin: 08/15/17 09:10 Dose: 40 mg Enoxaparin Sodium (Lovenox) 40 mg SC HS [facility] PRN Reason: Protocol Last Admin: 08/15/17 21:51 Dose: 40 mg Hydrochlorothiazide (Hydrodiuril) 25 mg PO DAILY [facility] Last Admin: 08/15/17 09:10 Dose: 25 mg Ciprofloxacin (Cipro 400mg/200ml Dsw) 400 mg in 200 mls @ 200 mls/hr IVPB Q12 [facility] PRN Reason: Protocol Last Admin: 08/15/17 21:50 Dose: 200 mls/hr Vancomycin HCl 1.25 gm/ Sodium (Chloride) 250 mls @ 166.667 mls/hr IVPB BID [facility] PRN Reason: Protocol Last Admin: 08/15/17 17:09 Dose: 166.667 mls/hr Ketorolac Tromethamine (Toradol) 15 mg IVP Q6 PRN PRN Reason: Pain, severe (8-10) Lorazepam (Ativan) 2 mg IVP Q6 PRN PRN Reason: Agitation Nicotine (Nicoderm Cq) 1 patch TD DAILY [facility] Last Admin: 08/15/17 09:11 Dose: 1 patch Tramadol HCl (Ultram) 50 mg PO Q6 PRN PRN Reason: Pain, moderate (4-7) Last Admin: 08/16/17 06:37 Dose: 50 mg - Labs Labs: 08/13/17 06:00 08/11/17 05:50 PT 13.5 Seconds (9.8-13.1) H 08/10/17 11:35 INR 1.2 (0.9-1.2) 08/10/17 11:35 APTT 38.1 Seconds (25.6-37.1) H 08/10/17 11:35 Attending/Attestation - Attestation I have personally seen and examined this patient.: Yes I have fully participated in the care of the patient.: Yes I have reviewed all pertinent clinical information, including history, physical exam and plan: Yes
[2017-08-15] MEDS: Ciprofloxacin 400mg/200ml D5W 400 MG/200 ML BAG IVPB SCH ×2 (09:09→21:50)
--- NOTE | 2017-08-15 13:40 | CP.PCM.PN ---
Subjective - Date & Time of Evaluation Date of Evaluation: 08/15/17 Time of Evaluation: 13:38 - Subjective Subjective: Podiatry Progress Note - Dr. Pham 61 y/o male seen at bedside this afternoon for gangrenous right 2nd and 3rd digits. Patient is AAOX3 and in no acute distress. Patient is currently still complaining of pain, but says it is relieved with Tylenol. Patient says he cannot tolerate having his legs in bed and has to hang them down. Patient denies any overnight acute events. Patient denies any F/N/V/C or SOB recently. Objective - Vital Signs/Intake and Output Vital Signs (last 24 hours): Temp Pulse Resp BP Pulse Ox 97.3 F L 80 20 151/73 H 100 08/15/17 08:11 08/15/17 08:11 08/15/17 08:11 08/15/17 08:11 08/15/17 08:11 - Medications Medications: Current Medications Acetaminophen (Tylenol 325mg Tab) 650 mg PO Q6 PRN PRN Reason: Pain, Mild (1-3) Last Admin: 08/14/17 00:45 Dose: 650 mg Aspirin (Aspirin Chewable) 81 mg PO DAILY [facility] Last Admin: 08/15/17 09:10 Dose: 81 mg Atorvastatin Calcium (Lipitor) 40 mg PO DAILY [facility] Last Admin: 08/15/17 09:10 Dose: 40 mg Enoxaparin Sodium (Lovenox) 40 mg SC HS [facility] PRN Reason: Protocol Last Admin: 08/14/17 21:08 Dose: 40 mg Hydrochlorothiazide (Hydrodiuril) 25 mg PO DAILY [facility] Last Admin: 08/15/17 09:10 Dose: 25 mg Ciprofloxacin (Cipro 400mg/200ml Dsw) 400 mg in 200 mls @ 200 mls/hr IVPB Q12 [facility] PRN Reason: Protocol Last Admin: 08/15/17 09:09 Dose: 200 mls/hr Vancomycin HCl 1.25 gm/ Sodium (Chloride) 250 mls @ 166.667 mls/hr IVPB BID [facility] PRN Reason: Protocol Last Admin: 08/15/17 09:07 Dose: 166.667 mls/hr Ketorolac Tromethamine (Toradol) 15 mg IVP Q6 PRN PRN Reason: Pain, severe (8-10) Lorazepam (Ativan) 2 mg IVP Q6 PRN PRN Reason: Agitation Nicotine (Nicoderm Cq) 1 patch TD DAILY [facility] Last Admin: 08/15/17 09:11 Dose: 1 patch Tramadol HCl (Ultram) 50 mg PO Q6 PRN PRN Reason: Pain, moderate (4-7) Last Admin: 08/15/17 07:32 Dose: 50 mg - Labs Labs: 08/13/17 06:00 08/11/17 05:50 PT 13.5 Seconds (9.8-13.1) H 08/10/17 11:35 INR 1.2 (0.9-1.2) 08/10/17 11:35 APTT 38.1 Seconds (25.6-37.1) H 08/10/17 11:35 - Constitutional Appears: Well, Non-toxic, No Acute Distress - Extremities Exam Additional comments: Right Lower Extremity focused exam: Vasc: DP and PT pulses are Non palpable, Temp gradient warm to cool from proximal to distal, right second and third digit are cold to touch, CFT delayed x 8; unable to assess to R 2nd and 3rd digits secondary to dry gangrene. Minimal edema and erythema noted to the L foot up to the level of the malleoli Neuro: Grossly diminished to entire forefoot Derm: R 2nd and 3rd toes are necrotic with 4th and 5th digits are dusky and cool to touch, fissures noted in 2nd and 3rd interdigital spaces with mild active serosanguinous drainage, malodor noted. Hyperpigmentation noted on the right foot up to the level of the metartarsal necks. MSK: Muscle power 4/5 in all muscle groups on the R side and 5/5 in all muscle groups of the L side. Patient unable to bend any digits of right foot - Neurological Exam Neurological Exam: Alert, Awake, Oriented x3 - Psychiatric Exam Psychiatric exam: Normal Affect, Normal Mood Assessment and Plan - Assessment and Plan (Free Text) Assessment: 61 y/o male patient admitted for gangrenous, infected right second and third digits with early signs of ischemic changes to right foot 4th and 5th digits Plan: Patient evaluated and chart reviewed Plan discussed in detail with attending, Dr. Ankit Pham would like to schedule surgery pending vascular studies Culture results: Pseudomonas Aeruginosa ID on board- started on Cipro, continue Vanco, d/c Zosysimin CT Angiogram: chronic occlusion SFA, calcified plaque popliteal artery, moderate stenosis; occluded ant tib artery, calcified tibioperoneal artery, moderate stenosis Pt to go for angiogram on Thursday with Dr. Hightower on 08/17/17 R foot x-ray: soft tissue swelling, osseous abnormality noted in the distal aspect of the forefoot Foot dressed with betadine, Telfa and DSD Patient expressed verbal understanding Podiatry will continue to follow while patient in house and will plan surgery according to results of re-vascularization
[2017-08-15] MEDS: Enoxaparin 40 mg Syringe SC SCH (21:51)
[2017-08-16 08:58] LABS: HEMOGLOBIN 14.1 g/dL (12.0-18.0); MEAN CELL VOLUME 95.2 fl (80.0-94.0); MEAN CORPUSCULAR HEMOGLOBIN 31.3 pg (27.0-31.0); MEAN CORPUSCULAR HGB CONC 32.9 g/dL (33.0-37.0); RBC 4.51 Mil/uL (4.40-5.90); RED CELL DISTRIBUTION WIDTH 13.7 % (11.5-14.5); WHITE BLOOD COUNT 10.1 K/uL (4.8-10.8)
[2017-08-16 09:01] LABS: BLOOD UREA NITROGEN 12 mg/dl (9-20); CALCIUM 9.7 mg/dL (8.4-10.2); GFR AFRICAN-AMERICAN > 60; GFR NON-AFRICAN AMERICAN > 60
[2017-08-16 09:05] LABS: INR 1.2 (0.9-1.2); PARTIAL THROMBOPLASTIN TIME 40.1 Seconds (25.6-37.1)
--- NOTE | 2017-08-16 09:25 | CP.PCM.PN ---
<Jimena Lu - Last Filed: 08/16/17 11:20> Subjective - Date & Time of Evaluation Date of Evaluation: 08/16/17 Time of Evaluation: 09:23 - Subjective Subjective: 61 y/o male referred to ER by podiatry for gangrenous right 2nd and 3rd toes. Seen and examined at bedside. Pateint reports pain improved, feels better with right leg hanging off the bed. No complaints. No acute changes over night. Objective - Vital Signs/Intake and Output Vital Signs (last 24 hours): Temp Pulse Resp BP Pulse Ox 98.3 F 89 20 134/76 98 08/16/17 08:24 08/16/17 08:24 08/16/17 08:24 08/16/17 08:24 08/16/17 08:24 - Medications Medications: Current Medications Acetaminophen (Tylenol 325mg Tab) 650 mg PO Q6 PRN PRN Reason: Pain, Mild (1-3) Last Admin: 08/15/17 21:49 Dose: 650 mg Amlodipine Besylate (Norvasc) 5 mg PO DAILY [facility] Last Admin: 08/15/17 17:09 Dose: 5 mg Aspirin (Aspirin Chewable) 81 mg PO DAILY [facility] Last Admin: 08/15/17 09:10 Dose: 81 mg Atorvastatin Calcium (Lipitor) 40 mg PO DAILY [facility] Last Admin: 08/15/17 09:10 Dose: 40 mg Enoxaparin Sodium (Lovenox) 40 mg SC HS [facility] PRN Reason: Protocol Last Admin: 08/15/17 21:51 Dose: 40 mg Hydrochlorothiazide (Hydrodiuril) 25 mg PO DAILY [facility] Last Admin: 08/15/17 09:10 Dose: 25 mg Ciprofloxacin (Cipro 400mg/200ml Dsw) 400 mg in 200 mls @ 200 mls/hr IVPB Q12 [facility] PRN Reason: Protocol Last Admin: 08/15/17 21:50 Dose: 200 mls/hr Vancomycin HCl 1.25 gm/ Sodium (Chloride) 250 mls @ 166.667 mls/hr IVPB BID [facility] PRN Reason: Protocol Last Admin: 08/15/17 17:09 Dose: 166.667 mls/hr Ketorolac Tromethamine (Toradol) 15 mg IVP Q6 PRN PRN Reason: Pain, severe (8-10) Lorazepam (Ativan) 2 mg IVP Q6 PRN PRN Reason: Agitation Nicotine (Nicoderm Cq) 1 patch TD DAILY [facility] Last Admin: 08/15/17 09:11 Dose: 1 patch Tramadol HCl (Ultram) 50 mg PO Q6 PRN PRN Reason: Pain, moderate (4-7) Last Admin: 08/16/17 06:37 Dose: 50 mg - Labs Labs: 08/16/17 08:10 08/16/17 08:10 PT 13.0 Seconds (9.8-13.1) 08/16/17 08:10 INR 1.2 (0.9-1.2) 08/16/17 08:10 APTT 40.1 Seconds (25.6-37.1) H 08/16/17 08:10 - Constitutional Appears: Well, No Acute Distress - Respiratory Exam Respiratory Exam: Clear to Ausculation Bilateral, NORMAL BREATHING PATTERN - Cardiovascular Exam Cardiovascular Exam: REGULAR RHYTHM, +S1, +S2 - GI/Abdominal Exam GI & Abdominal Exam: Soft, Normal Bowel Sounds - Extremities Exam Additional comments: Right foot wrapped. Bandage clean and intact. Assessment and Plan - Assessment and Plan (Free Text) Assessment: 1. Rt Foot 2nd/3rd toe gangrene: -abx adjust Vanc as indicated by vanc trough, podiatry Podiatry Consult: daily drsgs, awaiting vascular intervention -ID Consult (Keron): Vanc/Cipro, vanc trough -Labs in AM to include vanc trough 2. HTN: -chronic, asymptomatic, not controlled; c/w HCTZ/ASA, Norvasc added 3. HLD -c/w Atorvastatin 4. Prediabetes -Diet control 5. Diet -NPO after Midnight 6.DVT Prophylaxis: -Lovenox SC, will hold prior to angiogram <Casi Lynn - Last Filed: 08/17/17 08:06> Objective - Vital Signs/Intake and Output Vital Signs (last 24 hours): Temp Pulse Resp BP Pulse Ox 97.7 F 82 20 136/74 98 08/17/17 07:55 08/17/17 07:55 08/17/17 07:55 08/17/17 07:55 08/17/17 07:55 - Medications Medications: Current Medications Acetaminophen (Tylenol 325mg Tab) 650 mg PO Q6 PRN PRN Reason: Pain, Mild (1-3) Last Admin: 08/15/17 21:49 Dose: 650 mg Amlodipine Besylate (Norvasc) 5 mg PO DAILY [facility] Last Admin: 08/16/17 09:48 Dose: 5 mg Aspirin (Aspirin Chewable) 81 mg PO DAILY [facility] Last Admin: 08/16/17 09:48 Dose: 81 mg Atorvastatin Calcium (Lipitor) 40 mg PO DAILY [facility] Last Admin: 08/16/17 09:48 Dose: 40 mg Enoxaparin Sodium (Lovenox) 40 mg SC HS [facility] PRN Reason: Protocol Last Admin: 08/15/17 21:51 Dose: 40 mg Hydrochlorothiazide (Hydrodiuril) 25 mg PO DAILY [facility] Last Admin: 08/16/17 09:48 Dose: 25 mg Ciprofloxacin (Cipro 400mg/200ml Dsw) 400 mg in 200 mls @ 200 mls/hr IVPB Q12 [facility] PRN Reason: Protocol Last Admin: 08/16/17 20:10 Dose: 200 mls/hr Vancomycin HCl 1.25 gm/ Sodium (Chloride) 250 mls @ 166.667 mls/hr IVPB BID [facility] PRN Reason: Protocol Last Admin: 08/16/17 16:12 Dose: 166.667 mls/hr Ketorolac Tromethamine (Toradol) 15 mg IVP Q6 PRN PRN Reason: Pain, severe (8-10) Last Admin: 08/16/17 20:09 Dose: 15 mg Lorazepam (Ativan) 2 mg IVP Q6 PRN PRN Reason: Agitation Nicotine (Nicoderm Cq) 1 patch TD DAILY [facility] Last Admin: 08/16/17 09:47 Dose: 1 patch Tramadol HCl (Ultram) 50 mg PO Q6 PRN PRN Reason: Pain, moderate (4-7) Last Admin: 08/16/17 06:37 Dose: 50 mg - Labs Labs: 08/17/17 05:40 08/17/17 05:40 PT 13.0 Seconds (9.8-13.1) 08/16/17 08:10 INR 1.2 (0.9-1.2) 08/16/17 08:10 APTT 40.1 Seconds (25.6-37.1) H 07/01/18 08:10 Attending/Attestation - Attestation I have personally seen and examined this patient.: Yes I have fully participated in the care of the patient.: Yes I have reviewed all pertinent clinical information, including history, physical exam and plan: Yes
[2017-08-16] MEDS: Ciprofloxacin 400mg/200ml D5W 400 MG/200 ML BAG IVPB SCH ×2 (09:47→20:10)
--- NOTE | 2017-08-16 10:27 | CP.PCM.PN ---
Subjective - Date & Time of Evaluation Date of Evaluation: 08/16/17 Time of Evaluation: 10:26 - Subjective Subjective: Podiatry Progress Note - Dr. Pham 61 y/o male seen at bedside this afternoon for gangrenous right 2nd and 3rd digits. Patient is AAOX3 and in no acute distress. Patient is currently still complaining of pain, mainly when the foot is elevated up on the bed. States pain medications are helping to control it. States he sleeps with the leg hanging off the bed but still has difficulty sleeping. Patient denies any F/N/V/ C or SOB recently. Objective - Vital Signs/Intake and Output Vital Signs (last 24 hours): Temp Pulse Resp BP Pulse Ox 98.3 F 89 20 134/76 98 08/16/17 08:24 08/16/17 09:48 08/16/17 08:24 08/16/17 09:48 08/16/17 08:24 - Medications Medications: Current Medications Acetaminophen (Tylenol 325mg Tab) 650 mg PO Q6 PRN PRN Reason: Pain, Mild (1-3) Last Admin: 08/15/17 21:49 Dose: 650 mg Amlodipine Besylate (Norvasc) 5 mg PO DAILY [facility] Last Admin: 08/16/17 09:48 Dose: 5 mg Aspirin (Aspirin Chewable) 81 mg PO DAILY [facility] Last Admin: 08/16/17 09:48 Dose: 81 mg Atorvastatin Calcium (Lipitor) 40 mg PO DAILY [facility] Last Admin: 08/16/17 09:48 Dose: 40 mg Enoxaparin Sodium (Lovenox) 40 mg SC HS [facility] PRN Reason: Protocol Last Admin: 08/15/17 21:51 Dose: 40 mg Hydrochlorothiazide (Hydrodiuril) 25 mg PO DAILY [facility] Last Admin: 08/16/17 09:48 Dose: 25 mg Ciprofloxacin (Cipro 400mg/200ml Dsw) 400 mg in 200 mls @ 200 mls/hr IVPB Q12 [facility] PRN Reason: Protocol Last Admin: 08/16/17 09:47 Dose: 200 mls/hr Vancomycin HCl 1.25 gm/ Sodium (Chloride) 250 mls @ 166.667 mls/hr IVPB BID [facility] PRN Reason: Protocol Last Admin: 08/16/17 09:59 Dose: 166.667 mls/hr Ketorolac Tromethamine (Toradol) 15 mg IVP Q6 PRN PRN Reason: Pain, severe (8-10) Lorazepam (Ativan) 2 mg IVP Q6 PRN PRN Reason: Agitation Nicotine (Nicoderm Cq) 1 patch TD DAILY [facility] Last Admin: 08/16/17 09:47 Dose: 1 patch Tramadol HCl (Ultram) 50 mg PO Q6 PRN PRN Reason: Pain, moderate (4-7) Last Admin: 08/16/17 06:37 Dose: 50 mg - Labs Labs: 08/16/17 08:10 08/16/17 08:10 PT 13.0 Seconds (9.8-13.1) 08/16/17 08:10 INR 1.2 (0.9-1.2) 08/16/17 08:10 APTT 40.1 Seconds (25.6-37.1) H 08/16/17 08:10 - Constitutional Appears: Well, Non-toxic, No Acute Distress - Extremities Exam Additional comments: Right Lower Extremity focused exam: Vasc: DP and PT pulses are Non palpable, Temp gradient warm to cool from proximal to distal, right second and third digit are cold to touch, CFT delayed x 8; unable to assess to R 2nd and 3rd digits secondary to dry gangrene. Minimal edema and erythema noted to the L foot up to the level of the malleoli Neuro: Grossly diminished to entire forefoot Derm: R 2nd and 3rd toes are necrotic with 4th and 5th digits are dusky and cool to touch, fissures noted in 2nd and 3rd interdigital spaces with mild active serosanguinous drainage, malodor noted. Maceration noted to plantar aspects of 2nd and 3rd digits. Hyperpigmentation noted on the right foot up to the level of the metartarsal necks. MSK: Muscle power 4/5 in all muscle groups on the R side and 5/5 in all muscle groups of the L side. Patient unable to bend any digits of right foot - Neurological Exam Neurological Exam: Alert, Awake, Oriented x3 - Psychiatric Exam Psychiatric exam: Normal Affect, Normal Mood Assessment and Plan - Assessment and Plan (Free Text) Assessment: 61 y/o male patient admitted for gangrenous, infected right second and third digits with early signs of ischemic changes to right foot 4th and 5th digits Plan: Patient evaluated and chart reviewed Plan discussed with attending, Dr. Pham Podiatry to plan surgery pending vascular studies and intervention tomorrow Culture results: Pseudomonas Aeruginosa ID on board- started on Cipro, continue Vanco, d/c Zosyn CT Angiogram: chronic occlusion SFA, calcified plaque popliteal artery, moderate stenosis; occluded ant tib artery, calcified tibioperoneal artery, moderate stenosis Pt to go for angiogram on Thursday with Dr. Hightower on 08/17/17 R foot x-ray: soft tissue swelling, osseous abnormality noted in the distal aspect of the forefoot Foot dressed with betadine, Telfa and DSD Patient expressed verbal understanding Podiatry will continue to follow while patient in house and will plan surgery according to results of re-vascularization
--- NOTE | 2017-08-16 11:39 | CP.PCM.PN ---
Subjective - Date & Time of Evaluation Date of Evaluation: 08/16/17 Time of Evaluation: 11:37 - Subjective Subjective: Pt's platelets are still a little elevated to 561k. This is still consistent with reactive thrombocytosis. He has pseudomonas in the foot infection even though the Blood c/s is negative. Will monitor cbc Objective - Vital Signs/Intake and Output Vital Signs (last 24 hours): Temp Pulse Resp BP Pulse Ox 98.3 F 89 20 134/76 98 08/16/17 08:24 08/16/17 09:48 08/16/17 08:24 08/16/17 09:48 08/16/17 08:24 - Medications Medications: Current Medications Acetaminophen (Tylenol 325mg Tab) 650 mg PO Q6 PRN PRN Reason: Pain, Mild (1-3) Last Admin: 08/15/17 21:49 Dose: 650 mg Amlodipine Besylate (Norvasc) 5 mg PO DAILY [facility] Last Admin: 08/16/17 09:48 Dose: 5 mg Aspirin (Aspirin Chewable) 81 mg PO DAILY [facility] Last Admin: 08/16/17 09:48 Dose: 81 mg Atorvastatin Calcium (Lipitor) 40 mg PO DAILY [facility] Last Admin: 08/16/17 09:48 Dose: 40 mg Enoxaparin Sodium (Lovenox) 40 mg SC HS [facility] PRN Reason: Protocol Last Admin: 08/15/17 21:51 Dose: 40 mg Hydrochlorothiazide (Hydrodiuril) 25 mg PO DAILY [facility] Last Admin: 08/16/17 09:48 Dose: 25 mg Ciprofloxacin (Cipro 400mg/200ml Dsw) 400 mg in 200 mls @ 200 mls/hr IVPB Q12 [facility] PRN Reason: Protocol Last Admin: 08/16/17 09:47 Dose: 200 mls/hr Vancomycin HCl 1.25 gm/ Sodium (Chloride) 250 mls @ 166.667 mls/hr IVPB BID [facility] PRN Reason: Protocol Last Admin: 08/16/17 09:59 Dose: 166.667 mls/hr Ketorolac Tromethamine (Toradol) 15 mg IVP Q6 PRN PRN Reason: Pain, severe (8-10) Lorazepam (Ativan) 2 mg IVP Q6 PRN PRN Reason: Agitation Nicotine (Nicoderm Cq) 1 patch TD DAILY [facility] Last Admin: 08/16/17 09:47 Dose: 1 patch Tramadol HCl (Ultram) 50 mg PO Q6 PRN PRN Reason: Pain, moderate (4-7) Last Admin: 08/16/17 06:37 Dose: 50 mg - Labs Labs: 08/16/17 08:10 08/16/17 08:10 PT 13.0 Seconds (9.8-13.1) 08/16/17 08:10 INR 1.2 (0.9-1.2) 08/16/17 08:10 APTT 40.1 Seconds (25.6-37.1) H 08/16/17 08:10
[2017-08-17 06:26] LABS: HEMOGLOBIN 13.4 g/dL (12.0-18.0); MEAN CELL VOLUME 94.7 fl (80.0-94.0); MEAN CORPUSCULAR HEMOGLOBIN 31.9 pg (27.0-31.0); MEAN CORPUSCULAR HGB CONC 33.7 g/dL (33.0-37.0); RBC 4.2 Mil/uL (4.40-5.90); RED CELL DISTRIBUTION WIDTH 13.6 % (11.5-14.5); WHITE BLOOD COUNT 9.9 K/uL (4.8-10.8)
[2017-08-17 07:02] LABS: ALBUMIN 3.5 g/dL (3.5-5.0); ALT/SGPT 62 U/L (21-72); AST/SGOT 45 U/L (17-59); BLOOD UREA NITROGEN 14 mg/dl (9-20); CALCIUM 9.2 mg/dL (8.4-10.2); GFR AFRICAN-AMERICAN > 60; GFR NON-AFRICAN AMERICAN > 60
--- NOTE | 2017-08-17 09:00 | CP.PCM.PN ---
Subjective - Date & Time of Evaluation Date of Evaluation: 08/17/17 Time of Evaluation: 09:00 - Subjective Subjective: 61 y/o male referred to ER by podiatry for gangrenous right 2nd and 3rd toes. Patient reports pain improved, feels better with right leg hanging off the bed. No complaints. Remained NPO overnight. Awaiting transfer for angio. Objective - Vital Signs/Intake and Output Vital Signs (last 24 hours): Temp Pulse Resp BP Pulse Ox 97.7 F 82 20 136/74 98 08/17/17 07:55 08/17/17 07:55 08/17/17 07:55 08/17/17 07:55 08/17/17 07:55 - Medications Medications: Current Medications Acetaminophen (Tylenol 325mg Tab) 650 mg PO Q6 PRN PRN Reason: Pain, Mild (1-3) Last Admin: 08/15/17 21:49 Dose: 650 mg Amlodipine Besylate (Norvasc) 5 mg PO DAILY [facility] Last Admin: 08/16/17 09:48 Dose: 5 mg Aspirin (Aspirin Chewable) 81 mg PO DAILY [facility] Last Admin: 08/16/17 09:48 Dose: 81 mg Atorvastatin Calcium (Lipitor) 40 mg PO DAILY [facility] Last Admin: 08/16/17 09:48 Dose: 40 mg Enoxaparin Sodium (Lovenox) 40 mg SC HS [facility] PRN Reason: Protocol Last Admin: 08/15/17 21:51 Dose: 40 mg Hydrochlorothiazide (Hydrodiuril) 25 mg PO DAILY [facility] Last Admin: 08/16/17 09:48 Dose: 25 mg Ciprofloxacin (Cipro 400mg/200ml Dsw) 400 mg in 200 mls @ 200 mls/hr IVPB Q12 [facility] PRN Reason: Protocol Last Admin: 08/16/17 20:10 Dose: 200 mls/hr Vancomycin HCl 1.25 gm/ Sodium (Chloride) 250 mls @ 166.667 mls/hr IVPB BID@ 0900,2100 [facility] PRN Reason: Protocol Ketorolac Tromethamine (Toradol) 15 mg IVP Q6 PRN PRN Reason: Pain, severe (8-10) Last Admin: 08/16/17 20:09 Dose: 15 mg Lorazepam (Ativan) 2 mg IVP Q6 PRN PRN Reason: Agitation Nicotine (Nicoderm Cq) 1 patch TD DAILY [facility] Last Admin: 08/16/17 09:47 Dose: 1 patch Tramadol HCl (Ultram) 50 mg PO Q6 PRN PRN Reason: Pain, moderate (4-7) Last Admin: 08/16/17 06:37 Dose: 50 mg - Labs Labs: 08/17/17 05:40 08/17/17 05:40 PT 13.0 Seconds (9.8-13.1) 08/16/17 08:10 INR 1.2 (0.9-1.2) 08/16/17 08:10 APTT 40.1 Seconds (25.6-37.1) H 08/16/17 08:10 - Constitutional Appears: Well, No Acute Distress - Respiratory Exam Respiratory Exam: Clear to Ausculation Bilateral, NORMAL BREATHING PATTERN - Extremities Exam Additional comments: Right foot wrapped. Bandage dry, clean and intact. Assessment and Plan - Assessment and Plan (Free Text) Assessment: 61 y/o male referred to ER by podiatry for gangrenous right 2nd and 3rd toes 1. Rt Foot 2nd/3rd toe gangrene: -going for angio today -abx adjust Vanc as indicated by vanc trough, podiatry Podiatry Consult: daily drsgs, awaiting vascular intervention -ID Consult (Lesleynebismark): Miguelito/Diego, vanc trough -Labs in AM to include vanc trough 2. HTN: -chronic, asymptomatic, controlled (136/74) 3. HLD -c/w Atorvastatin 4. Prediabetes -Diet control 5. Diet -NPO 6.DVT Prophylaxis: -SCDs
--- NOTE | 2017-08-17 09:27 | CP.PCM.PN ---
Subjective - Date & Time of Evaluation Date of Evaluation: 08/17/17 Time of Evaluation: 09:25 - Subjective Subjective: Podiatry Progress Note for Dr. Pham 61 y/o male seen and evaluated at bedside with attending Dr. Pham this morning for gangrenous right 2nd and 3rd digits. Patient is AAOX3 and in no acute distress. Patient is currently still complaining of pain, mainly when the foot is elevated up on the bed. States pain medications are helping to control it. Patient states he will be going to [facility] today for re-vascularization with Dr. Hightower. Patient denies any F/N/V/C or SOB recently. Objective - Vital Signs/Intake and Output Vital Signs (last 24 hours): Temp Pulse Resp BP Pulse Ox 97.7 F 82 20 136/74 98 08/17/17 07:55 08/17/17 07:55 08/17/17 07:55 08/17/17 07:55 08/17/17 07:55 - Medications Medications: Current Medications Acetaminophen (Tylenol 325mg Tab) 650 mg PO Q6 PRN PRN Reason: Pain, Mild (1-3) Last Admin: 08/15/17 21:49 Dose: 650 mg Amlodipine Besylate (Norvasc) 5 mg PO DAILY [facility] Last Admin: 08/16/17 09:48 Dose: 5 mg Aspirin (Aspirin Chewable) 81 mg PO DAILY [facility] Last Admin: 08/16/17 09:48 Dose: 81 mg Atorvastatin Calcium (Lipitor) 40 mg PO DAILY [facility] Last Admin: 08/16/17 09:48 Dose: 40 mg Enoxaparin Sodium (Lovenox) 40 mg SC HS [facility] PRN Reason: Protocol Last Admin: 08/15/17 21:51 Dose: 40 mg Hydrochlorothiazide (Hydrodiuril) 25 mg PO DAILY [facility] Last Admin: 08/16/17 09:48 Dose: 25 mg Ciprofloxacin (Cipro 400mg/200ml Dsw) 400 mg in 200 mls @ 200 mls/hr IVPB Q12 [facility] PRN Reason: Protocol Last Admin: 08/16/17 20:10 Dose: 200 mls/hr Vancomycin HCl 1.25 gm/ Sodium (Chloride) 250 mls @ 166.667 mls/hr IVPB BID@ 0900,2100 [facility] PRN Reason: Protocol Ketorolac Tromethamine (Toradol) 15 mg IVP Q6 PRN PRN Reason: Pain, severe (8-10) Last Admin: 08/16/17 20:09 Dose: 15 mg Lorazepam (Ativan) 2 mg IVP Q6 PRN PRN Reason: Agitation Nicotine (Nicoderm Cq) 1 patch TD DAILY [facility] Last Admin: 08/16/17 09:47 Dose: 1 patch Tramadol HCl (Ultram) 50 mg PO Q6 PRN PRN Reason: Pain, moderate (4-7) Last Admin: 08/16/17 06:37 Dose: 50 mg - Labs Labs: 08/17/17 05:40 08/17/17 05:40 PT 13.0 Seconds (9.8-13.1) 08/16/17 08:10 INR 1.2 (0.9-1.2) 08/16/17 08:10 APTT 40.1 Seconds (25.6-37.1) H 08/16/17 08:10 - Constitutional Appears: Well, Non-toxic, No Acute Distress - Head Exam Head Exam: ATRAUMATIC, NORMOCEPHALIC - Extremities Exam Additional comments: Right Lower Extremity focused exam: Vasc: DP and PT pulses are Non palpable, Temp gradient warm to cool from proximal to distal, right second and third digit are cold to touch, CFT delayed x 8; unable to assess to R 2nd and 3rd digits secondary to dry gangrene. Minimal edema and erythema noted to the L foot up to the level of the malleoli Neuro: Grossly diminished to entire forefoot Derm: R 2nd and 3rd toes are necrotic with 4th and 5th digits are dusky and cool to touch, fissures noted in 2nd and 3rd interdigital spaces with mild active serosanguinous drainage, malodor noted. Maceration noted to plantar and proximal aspects of 2nd and 3rd digits. Hyperpigmentation noted on the right foot up to the level of the metartarsal necks. MSK: Muscle power 4/5 in all muscle groups on the R side and 5/5 in all muscle groups of the L side. Patient unable to bend any digits of right foot - Neurological Exam Neurological Exam: Alert, Awake, Normal Gait - Psychiatric Exam Psychiatric exam: Normal Affect, Normal Mood Assessment and Plan - Assessment and Plan (Free Text) Assessment: 61 y/o male patient admitted for gangrenous, infected right second and third digits with early signs of ischemic changes to right foot 4th and 5th digits Plan: Patient evaluated at bedside with attending, Dr. Pham Podiatry to plan surgery pending vascular studies and intervention today with Dr. Hightower Culture results: Pseudomonas Aeruginosa ID on board- started on Cipro, continue Vanco, d/c Zosyn CT Angiogram: chronic occlusion SFA, calcified plaque popliteal artery, moderate stenosis; occluded ant tib artery, calcified tibioperoneal artery, moderate stenosis Pt to go for angiogram today R foot x-ray: soft tissue swelling, osseous abnormality noted in the distal aspect of the forefoot Foot dressed with betadine, Telfa and DSD Patient expressed verbal understanding Podiatry will continue to follow while patient in house and will plan surgery according to results of re-vascularization
[2017-08-17] MEDS: Ciprofloxacin 400mg/200ml D5W 400 MG/200 ML BAG IVPB SCH (21:50)
--- NOTE | 2017-08-18 00:38 | CP.PCM.PCO ---
Physician Communication Note - Physician Communication Note Physician Communication Note: Patient was evaluated at bedside after he arrived from [facility]. Progress Note - Review of Symptoms Events since last encounter: Patient is s/p peripheral angiogram of right foot. Patient awake, alert, oriented x 3, and denies chest pain, SOB, dizziness, N/V, headaches. Complaining of pain in his right foot, and asking for pain medications. Noted Left groin dressing dry and intact, no bleeding nor ecchymosis. VS reviewed, and noted slightly elevated BP, could be 2/2 to pain. Will treat pain, and recheck BP. I was informed by nurse that in [facility] patient had elevated BP, and was managed with labetalol and hydralazine. Also received anticoagulant Heparin as per nurse report. Documentation from [facility] reviewed and not new instructions noted. Will contact Dr. Hightower, interventional Cardiology,in am for angiogram results, and post-procedure recommendations.
--- NOTE | 2017-08-18 00:57 | CP.PCM.PN ---
Subjective - Date & Time of Evaluation Date of Evaluation: 08/17/17 Time of Evaluation: 15:00 - Subjective Subjective: s/p peripheral angiogram [employer]/atherectomy/stenting of SFA [employer]GER/stenting of popliteal [employer]GER/stenting of peroneal Objective - Vital Signs/Intake and Output Vital Signs (last 24 hours): Temp Pulse Resp BP Pulse Ox 99.9 F H 84 20 162/74 H 100 08/17/17 23:55 08/17/17 23:55 08/17/17 23:55 08/17/17 23:55 08/17/17 23:55 - Medications Medications: Current Medications Acetaminophen (Tylenol 325mg Tab) 650 mg PO Q6 PRN PRN Reason: Pain, Mild (1-3) Last Admin: 08/15/17 21:49 Dose: 650 mg Amlodipine Besylate (Norvasc) 5 mg PO DAILY [facility] Last Admin: 08/16/17 09:48 Dose: 5 mg Aspirin (Aspirin Chewable) 81 mg PO DAILY [facility] Last Admin: 08/16/17 09:48 Dose: 81 mg Atorvastatin Calcium (Lipitor) 40 mg PO DAILY [facility] Last Admin: 08/16/17 09:48 Dose: 40 mg Enoxaparin Sodium (Lovenox) 40 mg SC HS [facility] PRN Reason: Protocol Last Admin: 08/15/17 21:51 Dose: 40 mg Hydrochlorothiazide (Hydrodiuril) 25 mg PO DAILY [facility] Last Admin: 08/16/17 09:48 Dose: 25 mg Ciprofloxacin (Cipro 400mg/200ml Dsw) 400 mg in 200 mls @ 200 mls/hr IVPB Q12 [facility] PRN Reason: Protocol Last Admin: 08/17/17 21:50 Dose: Not Given Vancomycin HCl 1.25 gm/ Sodium (Chloride) 250 mls @ 166.667 mls/hr IVPB BID@ 0900,2100 [facility] PRN Reason: Protocol Last Admin: 08/17/17 21:50 Dose: Not Given Ketorolac Tromethamine (Toradol) 15 mg IVP Q6 PRN PRN Reason: Pain, severe (8-10) Last Admin: 08/16/17 20:09 Dose: 15 mg Nicotine (Nicoderm Cq) 1 patch TD DAILY [facility] Last Admin: 08/16/17 09:47 Dose: 1 patch Tramadol HCl (Ultram) 50 mg PO Q6 PRN PRN Reason: Pain, moderate (4-7) Last Admin: 08/18/17 00:43 Dose: 50 mg - Labs Labs: 08/17/17 05:40 08/17/17 05:40 PT 13.0 Seconds (9.8-13.1) 08/16/17 08:10 INR 1.2 (0.9-1.2) 08/16/17 08:10 APTT 40.1 Seconds (25.6-37.1) H 08/16/17 08:10 - Constitutional Appears: Well - Head Exam Head Exam: ATRAUMATIC, NORMAL INSPECTION, NORMOCEPHALIC - Eye Exam Eye Exam: EOMI, Normal appearance, PERRL Pupil Exam: NORMAL ACCOMODATION, PERRL - ENT Exam ENT Exam: Mucous Membranes Moist, Normal Exam - Neck Exam Neck Exam: Full ROM, Normal Inspection. absent: Lymphadenopathy - Respiratory Exam Respiratory Exam: Clear to Ausculation Bilateral, NORMAL BREATHING PATTERN - Cardiovascular Exam Cardiovascular Exam: REGULAR RHYTHM, +S1, +S2. absent: Murmur - GI/Abdominal Exam GI & Abdominal Exam: Soft, Normal Bowel Sounds. absent: Tenderness - Extremities Exam Extremities Exam: Full ROM, Normal Capillary Refill, Normal Inspection, Pedal Edema. absent: Joint Swelling Additional comments: dsg to RLE - Back Exam Back Exam: NORMAL INSPECTION - Neurological Exam Neurological Exam: Alert, Awake, CN II-XII Intact, Normal Gait, Oriented x3 - Psychiatric Exam Psychiatric exam: Normal Affect, Normal Mood - Skin Skin Exam: Dry, Intact, Normal Color, Warm Assessment and Plan (1) PVD (peripheral vascular disease) Assessment & Plan: s/p [employer]GER/atherectomy of 100% occluded SFA with stenting of mid SFA and angioplasty with drug coated balloon of ostial SFA [employer] MANAGER/stenting of 85% popliteal stenosis [employer] MA[employer]GER/stenting of 100% occluded peroneal artery cont dapt ( asa + brilinta ) statins, bb, acei Status: Acute (2) Gangrene due to arterial insufficiency Status: Acute (3) Hypertension Assessment & Plan: dc norvasc add coreg 25mg po bid add losartan 50mg po daily Status: Acute
[2017-08-18 06:33] LABS: HEMOGLOBIN 13.6 g/dL (12.0-18.0); MEAN CELL VOLUME 94.6 fl (80.0-94.0); MEAN CORPUSCULAR HEMOGLOBIN 31.7 pg (27.0-31.0); MEAN CORPUSCULAR HGB CONC 33.4 g/dL (33.0-37.0); RBC 4.3 Mil/uL (4.40-5.90); RED CELL DISTRIBUTION WIDTH 13.4 % (11.5-14.5); WHITE BLOOD COUNT 11.8 K/uL (4.8-10.8)
[2017-08-18 07:12] LABS: BLOOD UREA NITROGEN 11 mg/dl (9-20); CALCIUM 9.4 mg/dL (8.4-10.2); GFR AFRICAN-AMERICAN > 60; GFR NON-AFRICAN AMERICAN > 60
--- NOTE | 2017-08-18 09:02 | CP.PCM.PN ---
<Jeffry Mendes - Last Filed: 08/18/17 09:00> Subjective - Date & Time of Evaluation Date of Evaluation: 08/18/17 Time of Evaluation: 09:00 - Subjective Subjective: Podiatry Progress Note for Dr. Pham 61 y/o male seen and evaluated at bedside this morning for gangrenous right 2nd and 3rd digits. Patient is AAOX3 and in no acute distress. Patient is currently still complaining of pain, mainly when the foot is elevated up on the bed. States pain medications are helping to control it. Patient aware he will be scheduled for an amputation this week. Patient denies any F/N/V/C or SOB recently. Objective - Vital Signs/Intake and Output Vital Signs (last 24 hours): Temp Pulse Resp BP Pulse Ox 98.7 F 97 H 20 132/69 99 08/18/17 08:11 08/18/17 08:11 08/18/17 08:11 08/18/17 08:11 08/18/17 08:11 - Medications Medications: Current Medications Acetaminophen (Tylenol 325mg Tab) 650 mg PO Q6 PRN PRN Reason: Pain, Mild (1-3) Last Admin: 08/15/17 21:49 Dose: 650 mg Aspirin (Aspirin Chewable) 81 mg PO DAILY [facility] Last Admin: 08/16/17 09:48 Dose: 81 mg Atorvastatin Calcium (Lipitor) 40 mg PO DAILY [facility] Last Admin: 08/16/17 09:48 Dose: 40 mg Carvedilol (Coreg) 25 mg PO Q12 [facility] Enoxaparin Sodium (Lovenox) 40 mg SC HS [facility] PRN Reason: Protocol Last Admin: 08/15/17 21:51 Dose: 40 mg Hydrochlorothiazide (Hydrodiuril) 25 mg PO DAILY [facility] Last Admin: 08/16/17 09:48 Dose: 25 mg Ciprofloxacin (Cipro 400mg/200ml Dsw) 400 mg in 200 mls @ 200 mls/hr IVPB Q12 [facility] PRN Reason: Protocol Last Admin: 08/17/17 21:50 Dose: Not Given Vancomycin HCl 1.25 gm/ Sodium (Chloride) 250 mls @ 166.667 mls/hr IVPB BID@ 0900,2100 [facility] PRN Reason: Protocol Last Admin: 08/17/17 21:50 Dose: Not Given Ketorolac Tromethamine (Toradol) 15 mg IVP Q6 PRN PRN Reason: Pain, severe (8-10) Last Admin: 08/16/17 20:09 Dose: 15 mg Losartan Potassium (Cozaar) 50 mg PO DAILY [facility] Nicotine (Nicoderm Cq) 1 patch TD DAILY [facility] Last Admin: 08/16/17 09:47 Dose: 1 patch Ticagrelor (Brilinta) 90 mg PO BID [facility] Tramadol HCl (Ultram) 50 mg PO Q6 PRN PRN Reason: Pain, moderate (4-7) Last Admin: 08/18/17 00:43 Dose: 50 mg - Labs Labs: 08/18/17 05:40 08/18/17 05:40 PT 13.0 Seconds (9.8-13.1) 08/16/17 08:10 INR 1.2 (0.9-1.2) 08/16/17 08:10 APTT 40.1 Seconds (25.6-37.1) H 08/16/17 08:10 - Constitutional Appears: Well, Non-toxic, No Acute Distress - Head Exam Head Exam: ATRAUMATIC, NORMOCEPHALIC - Extremities Exam Additional comments: Right Lower Extremity focused exam: Vasc: DP and PT pulses are Non palpable, Temp gradient warm to cool from proximal to distal, right second and third digit are cold to touch, CFT delayed x 8; unable to assess to R 2nd and 3rd digits secondary to dry gangrene. Minimal edema and erythema noted to the L foot up to the level of the malleoli Neuro: Grossly diminished to entire forefoot Derm: R 2nd and 3rd toes are necrotic with 4th and 5th digits are dusky and cool to touch, fissures noted in 2nd and 3rd interdigital spaces with mild active serosanguinous drainage, malodor noted. Maceration noted to plantar and proximal aspects of 2nd and 3rd digits. Hyperpigmentation noted on the right foot up to the level of the metartarsal necks. MSK: Muscle power 4/5 in all muscle groups on the R side and 5/5 in all muscle groups of the L side. Patient unable to bend any digits of right foot - Neurological Exam Neurological Exam: Alert, Awake, Oriented x3 - Psychiatric Exam Psychiatric exam: Normal Affect, Normal Mood Assessment and Plan - Assessment and Plan (Free Text) Assessment: 61 y/o male patient admitted for gangrenous, infected right second and third digits with early signs of ischemic changes to right foot 4th and 5th digits Plan: Patient evaluated at bedside Plan discussed with Dr. Pham Culture results: Pseudomonas Aeruginosa ID on board- started on Cipro, continue Vanco, d/c Zosyn CT Angiogram: chronic occlusion SFA, calcified plaque popliteal artery, moderate stenosis; occluded ant tib artery, calcified tibioperoneal artery, moderate stenosis R foot x-ray: soft tissue swelling, osseous abnormality noted in the distal aspect of the forefoot Foot dressed with betadine, Telfa and DSD As per Campbell, patient cleared for an forefoot procedure; surgery with Dr. Pham likely to be scheduled for Thursday OR approval Patient expressed verbal understanding Podiatry will continue to follow while patient in house <Stacie Morrell - Last Filed: 08/18/17 12:36> Objective - Vital Signs/Intake and Output Vital Signs (last 24 hours): Temp Pulse Resp BP Pulse Ox 98.7 F 97 H 20 132/69 99 08/18/17 08:11 08/18/17 08:11 08/18/17 08:11 08/18/17 08:11 08/18/17 08:11 - Medications Medications: Current Medications Acetaminophen (Tylenol 325mg Tab) 650 mg PO Q6 PRN PRN Reason: Pain, Mild (1-3) Last Admin: 08/15/17 21:49 Dose: 650 mg Aspirin (Aspirin Chewable) 81 mg PO DAILY [facility] Last Admin: 08/18/17 09:40 Dose: 81 mg Atorvastatin Calcium (Lipitor) 40 mg PO DAILY [facility] Last Admin: 08/16/17 09:48 Dose: 40 mg Carvedilol (Coreg) 25 mg PO Q12 [facility] Last Admin: 08/18/17 09:39 Dose: 25 mg Enoxaparin Sodium (Lovenox) 40 mg SC HS [facility] PRN Reason: Protocol Last Admin: 08/15/17 21:51 Dose: 40 mg Hydrochlorothiazide (Hydrodiuril) 25 mg PO DAILY [facility] Last Admin: 08/18/17 09:40 Dose: 25 mg Ciprofloxacin (Cipro 400mg/200ml Dsw) 400 mg in 200 mls @ 200 mls/hr IVPB Q12 [facility] PRN Reason: Protocol Last Admin: 08/18/17 09:41 Dose: 200 mls/hr Vancomycin HCl 1.25 gm/ Sodium (Chloride) 250 mls @ 166.667 mls/hr IVPB BID@ 0900,2100 [facility] PRN Reason: Protocol Last Admin: 08/18/17 11:43 Dose: 166.667 mls/hr Ketorolac Tromethamine (Toradol) 15 mg IVP Q6 PRN PRN Reason: Pain, severe (8-10) Last Admin: 08/16/17 20:09 Dose: 15 mg Losartan Potassium (Cozaar) 50 mg PO DAILY [facility] Last Admin: 08/18/17 09:39 Dose: 50 mg Nicotine (Nicoderm Cq) 1 patch TD DAILY [facility] Last Admin: 08/18/17 09:40 Dose: 1 patch Ticagrelor (Brilinta) 90 mg PO BID [facility] Last Admin: 08/18/17 09:38 Dose: 90 mg Tramadol HCl (Ultram) 100 mg PO Q6 PRN PRN Reason: Pain, severe (8-10) - Labs Labs: 08/18/17 05:40 08/18/17 05:40 PT 13.0 Seconds (9.8-13.1) 08/16/17 08:10 INR 1.2 (0.9-1.2) 08/16/17 08:10 APTT 40.1 Seconds (25.6-37.1) H 08/16/17 08:10 Assessment and Plan - Assessment and Plan (Free Text) Plan: Patient scheduled for surgery on Thursday at 7: [address] Pham
--- NOTE | 2017-08-18 09:07 | CP.PCM.PN ---
Subjective - Date & Time of Evaluation Date of Evaluation: 08/18/17 Time of Evaluation: 09:04 - Subjective Subjective: 61 y/o male referred to ER by podiatry for gangrenous right 2nd and 3rd toes, POD #1 s/p angioplasty and stenting of right lower extremity vessels. Patient is seen and examined at bedside. He reports pain improved, feels better with right leg hanging off the bed. No complaints. Reports one BM this morning and is waiting for breakfast. Objective - Vital Signs/Intake and Output Vital Signs (last 24 hours): Temp Pulse Resp BP Pulse Ox 98.7 F 97 H 20 132/69 99 08/18/17 08:11 08/18/17 08:11 08/18/17 08:11 08/18/17 08:11 08/18/17 08:11 - Medications Medications: Current Medications Acetaminophen (Tylenol 325mg Tab) 650 mg PO Q6 PRN PRN Reason: Pain, Mild (1-3) Last Admin: 08/15/17 21:49 Dose: 650 mg Aspirin (Aspirin Chewable) 81 mg PO DAILY [facility] Last Admin: 08/16/17 09:48 Dose: 81 mg Atorvastatin Calcium (Lipitor) 40 mg PO DAILY [facility] Last Admin: 08/16/17 09:48 Dose: 40 mg Carvedilol (Coreg) 25 mg PO Q12 [facility] Enoxaparin Sodium (Lovenox) 40 mg SC HS [facility] PRN Reason: Protocol Last Admin: 08/15/17 21:51 Dose: 40 mg Hydrochlorothiazide (Hydrodiuril) 25 mg PO DAILY [facility] Last Admin: 08/16/17 09:48 Dose: 25 mg Ciprofloxacin (Cipro 400mg/200ml Dsw) 400 mg in 200 mls @ 200 mls/hr IVPB Q12 [facility] PRN Reason: Protocol Last Admin: 08/17/17 21:50 Dose: Not Given Vancomycin HCl 1.25 gm/ Sodium (Chloride) 250 mls @ 166.667 mls/hr IVPB BID@ 0900,2100 [facility] PRN Reason: Protocol Last Admin: 08/17/17 21:50 Dose: Not Given Ketorolac Tromethamine (Toradol) 15 mg IVP Q6 PRN PRN Reason: Pain, severe (8-10) Last Admin: 08/16/17 20:09 Dose: 15 mg Losartan Potassium (Cozaar) 50 mg PO DAILY [facility] Nicotine (Nicoderm Cq) 1 patch TD DAILY [facility] Last Admin: 08/16/17 09:47 Dose: 1 patch Ticagrelor (Brilinta) 90 mg PO BID [facility] Tramadol HCl (Ultram) 50 mg PO Q6 PRN PRN Reason: Pain, moderate (4-7) Last Admin: 08/18/17 00:43 Dose: 50 mg - Labs Labs: 08/18/17 05:40 08/18/17 05:40 PT 13.0 Seconds (9.8-13.1) 08/16/17 08:10 INR 1.2 (0.9-1.2) 08/16/17 08:10 APTT 40.1 Seconds (25.6-37.1) H 08/16/17 08:10 - Constitutional Appears: Well, No Acute Distress - Respiratory Exam Respiratory Exam: Clear to Ausculation Bilateral, NORMAL BREATHING PATTERN - Cardiovascular Exam Cardiovascular Exam: REGULAR RHYTHM, +S1, +S2 - GI/Abdominal Exam GI & Abdominal Exam: Soft. absent: Distended, Tenderness - Extremities Exam Additional comments: Right foot wrapped. Bandage dry, clean and intact. Left groin dressing dry and intact - Neurological Exam Neurological Exam: Alert, Altered, Oriented x3 - Skin Skin Exam: Dry Assessment and Plan - Assessment and Plan (Free Text) Assessment: Assessment: 61 y/o male sent to ER by podiatry for gangrenous right 2nd and 3rd toes. POD # 1 s/p angio and stenting of right lower extremity vessels. 1. 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 foot x-ray: soft tissue swelling, osseous abnormality noted in the distal aspect of the forefoot -plans for forefoot amputation surgery as per Dr. Hightower, likely to be scheduled w/ Dr. Pham for Thursday pending OR approval -patient is medically optimized for surgery as per cardio -started Brilinta 90mg PO BID -Cultures positive for Pseudomonas Aeruginosa; ID on board- continue w/ Cipro and Vanco. Will check Vanco trough in the AM -Foot is dressed -Podiatry following, appreciate recs -increased Tramadol to 100mg PO Q6 PRN 2. Thrombocytosis -likely reactive -currently being followed by heme onc, will follow up w/ recs 2. HTN: -chronic, asymptomatic -d/c Norvasc -added Coreg 25mg PO BID and Losartan 50mg PO QD 3. HLD -c/w atorvastatin 40mg PO QD 4. Prediabetes -Diet control 5. Diet -heart healthy 6.DVT Prophylaxis: -SCDs
[2017-08-18] MEDS: Ciprofloxacin 400mg/200ml D5W 400 MG/200 ML BAG IVPB SCH ×2 (09:41→20:48)
--- NOTE | 2017-08-18 11:16 | CP.PCM.PN ---
Subjective - Date & Time of Evaluation Date of Evaluation: 08/18/17 Time of Evaluation: 11:13 - Subjective Subjective: Pt's platelet count is a little higher, but still consistent with reactive thrombocytosis.. Will monitor cbc Objective - Vital Signs/Intake and Output Vital Signs (last 24 hours): Temp Pulse Resp BP Pulse Ox 98.7 F 97 H 20 132/69 99 08/18/17 08:11 08/18/17 08:11 08/18/17 08:11 08/18/17 08:11 08/18/17 08:11 - Medications Medications: Current Medications Acetaminophen (Tylenol 325mg Tab) 650 mg PO Q6 PRN PRN Reason: Pain, Mild (1-3) Last Admin: 08/15/17 21:49 Dose: 650 mg Aspirin (Aspirin Chewable) 81 mg PO DAILY [facility] Last Admin: 08/18/17 09:40 Dose: 81 mg Atorvastatin Calcium (Lipitor) 40 mg PO DAILY [facility] Last Admin: 08/16/17 09:48 Dose: 40 mg Carvedilol (Coreg) 25 mg PO Q12 [facility] Last Admin: 08/18/17 09:39 Dose: 25 mg Enoxaparin Sodium (Lovenox) 40 mg SC HS [facility] PRN Reason: Protocol Last Admin: 08/15/17 21:51 Dose: 40 mg Hydrochlorothiazide (Hydrodiuril) 25 mg PO DAILY [facility] Last Admin: 08/18/17 09:40 Dose: 25 mg Ciprofloxacin (Cipro 400mg/200ml Dsw) 400 mg in 200 mls @ 200 mls/hr IVPB Q12 [facility] PRN Reason: Protocol Last Admin: 08/18/17 09:41 Dose: 200 mls/hr Vancomycin HCl 1.25 gm/ Sodium (Chloride) 250 mls @ 166.667 mls/hr IVPB BID@ 0900,2100 [facility] PRN Reason: Protocol Last Admin: 08/17/17 21:50 Dose: Not Given Ketorolac Tromethamine (Toradol) 15 mg IVP Q6 PRN PRN Reason: Pain, severe (8-10) Last Admin: 08/16/17 20:09 Dose: 15 mg Losartan Potassium (Cozaar) 50 mg PO DAILY [facility] Last Admin: 08/18/17 09:39 Dose: 50 mg Nicotine (Nicoderm Cq) 1 patch TD DAILY [facility] Last Admin: 08/18/17 09:40 Dose: 1 patch Ticagrelor (Brilinta) 90 mg PO BID [facility] Last Admin: 08/18/17 09:38 Dose: 90 mg Tramadol HCl (Ultram) 50 mg PO Q6 PRN PRN Reason: Pain, moderate (4-7) Last Admin: 08/18/17 00:43 Dose: 50 mg - Labs Labs: 08/18/17 05:40 08/18/17 05:40 PT 13.0 Seconds (9.8-13.1) 08/16/17 08:10 INR 1.2 (0.9-1.2) 08/16/17 08:10 APTT 40.1 Seconds (25.6-37.1) H 08/16/17 08:10
--- NOTE | 2017-08-18 16:22 | CP.PCM.PN ---
Subjective - Date & Time of Evaluation Date of Evaluation: 08/18/17 Time of Evaluation: 16:20 - Subjective Subjective: I D NOTE PATIENT HAD STENTING DONE ON 08/17/17 NO CHANGE IN ANTIBIOTIC COVERAGE RENAL FNCTION IS SO FAR STABLE VANCO TROUGH FOR TOMORROW Objective - Vital Signs/Intake and Output Vital Signs (last 24 hours): Temp Pulse Resp BP Pulse Ox 98.9 F 86 18 144/71 100 08/18/17 16:15 08/18/17 16:15 08/18/17 16:15 08/18/17 16:15 08/18/17 16:15 - Medications Medications: Current Medications Acetaminophen (Tylenol 325mg Tab) 650 mg PO Q6 PRN PRN Reason: Pain, Mild (1-3) Last Admin: 08/15/17 21:49 Dose: 650 mg Aspirin (Aspirin Chewable) 81 mg PO DAILY [facility] Last Admin: 08/18/17 09:40 Dose: 81 mg Atorvastatin Calcium (Lipitor) 40 mg PO DAILY [facility] Last Admin: 08/16/17 09:48 Dose: 40 mg Carvedilol (Coreg) 25 mg PO Q12 [facility] Last Admin: 08/18/17 09:39 Dose: 25 mg Enoxaparin Sodium (Lovenox) 40 mg SC HS [facility] PRN Reason: Protocol Last Admin: 08/15/17 21:51 Dose: 40 mg Hydrochlorothiazide (Hydrodiuril) 25 mg PO DAILY [facility] Last Admin: 08/18/17 09:40 Dose: 25 mg Ciprofloxacin (Cipro 400mg/200ml Dsw) 400 mg in 200 mls @ 200 mls/hr IVPB Q12 [facility] PRN Reason: Protocol Last Admin: 08/18/17 09:41 Dose: 200 mls/hr Vancomycin HCl 1.25 gm/ Sodium (Chloride) 250 mls @ 166.667 mls/hr IVPB BID@ 0900,2100 [facility] PRN Reason: Protocol Last Admin: 08/18/17 11:43 Dose: 166.667 mls/hr Ketorolac Tromethamine (Toradol) 15 mg IVP Q6 PRN PRN Reason: Pain, severe (8-10) Last Admin: 08/16/17 20:09 Dose: 15 mg Losartan Potassium (Cozaar) 50 mg PO DAILY [facility] Last Admin: 08/18/17 09:39 Dose: 50 mg Nicotine (Nicoderm Cq) 1 patch TD DAILY [facility] Last Admin: 08/18/17 09:40 Dose: 1 patch Ticagrelor (Brilinta) 90 mg PO BID [facility] Last Admin: 08/18/17 09:38 Dose: 90 mg Tramadol HCl (Ultram) 100 mg PO Q6 PRN PRN Reason: Pain, severe (8-10) - Labs Labs: 08/18/17 05:40 08/18/17 05:40 PT 13.0 Seconds (9.8-13.1) 08/16/17 08:10 INR 1.2 (0.9-1.2) 08/16/17 08:10 APTT 40.1 Seconds (25.6-37.1) H 08/16/17 08:10
[2017-08-18] MEDS: Enoxaparin 40 mg Syringe SC SCH (22:33)
[2017-08-19 08:30] LABS: HEMOGLOBIN 12.4 g/dL (12.0-18.0); MEAN CELL VOLUME 93.2 fl (80.0-94.0); MEAN CORPUSCULAR HEMOGLOBIN 31.4 pg (27.0-31.0); MEAN CORPUSCULAR HGB CONC 33.6 g/dL (33.0-37.0); RBC 3.96 Mil/uL (4.40-5.90); RED CELL DISTRIBUTION WIDTH 13.2 % (11.5-14.5); WHITE BLOOD COUNT 12.2 K/uL (4.8-10.8)
[2017-08-19 08:46] LABS: BLOOD UREA NITROGEN 11 mg/dl (9-20); CALCIUM 9.1 mg/dL (8.4-10.2); GFR AFRICAN-AMERICAN > 60; GFR NON-AFRICAN AMERICAN > 60
--- NOTE | 2017-08-19 09:16 | CP.PCM.PN ---
Subjective - Date & Time of Evaluation Date of Evaluation: 08/19/17 Time of Evaluation: 09:16 - Subjective Subjective: 61 y/o male referred to ER by podiatry for gangrenous right 2nd and 3rd toes, POD #2 s/p angioplasty and stenting of right lower extremity vessels. Patient is seen and examined at bedside. Reports pain worsens "when painkiller wears off." Pain improves on tramadol and toradol. Objective - Vital Signs/Intake and Output Vital Signs (last 24 hours): Temp Pulse Resp BP Pulse Ox 97.6 F 84 19 117/65 100 08/19/17 08:07 08/19/17 08:07 08/19/17 08:07 08/19/17 08:07 08/19/17 08:07 - Medications Medications: Current Medications Acetaminophen (Tylenol 325mg Tab) 650 mg PO Q6 PRN PRN Reason: Pain, Mild (1-3) Last Admin: 08/15/17 21:49 Dose: 650 mg Aspirin (Aspirin Chewable) 81 mg PO DAILY [facility] Last Admin: 08/18/17 09:40 Dose: 81 mg Atorvastatin Calcium (Lipitor) 40 mg PO DAILY@2100 [facility] Carvedilol (Coreg) 25 mg PO Q12 [facility] Last Admin: 08/18/17 20:49 Dose: 25 mg Enoxaparin Sodium (Lovenox) 40 mg SC HS [facility] PRN Reason: Protocol Last Admin: 08/18/17 22:33 Dose: Not Given Hydrochlorothiazide (Hydrodiuril) 25 mg PO DAILY [facility] Last Admin: 08/18/17 09:40 Dose: 25 mg Ciprofloxacin (Cipro 400mg/200ml Dsw) 400 mg in 200 mls @ 200 mls/hr IVPB Q12 [facility] PRN Reason: Protocol Last Admin: 08/18/17 20:48 Dose: 200 mls/hr Vancomycin HCl 1.25 gm/ Sodium (Chloride) 250 mls @ 166.667 mls/hr IVPB BID@ 0900,2100 [facility] PRN Reason: Protocol Last Admin: 08/18/17 22:30 Dose: 166.667 mls/hr Ketorolac Tromethamine (Toradol) 15 mg IVP Q6 PRN PRN Reason: Pain, severe (8-10) Last Admin: 08/16/17 20:09 Dose: 15 mg Losartan Potassium (Cozaar) 50 mg PO DAILY [facility] Last Admin: 08/18/17 09:39 Dose: 50 mg Nicotine (Nicoderm Cq) 1 patch TD DAILY [facility] Last Admin: 08/18/17 09:40 Dose: 1 patch Ticagrelor (Brilinta) 90 mg PO BID [facility] Last Admin: 08/18/17 17:01 Dose: 90 mg Tramadol HCl (Ultram) 100 mg PO Q6 PRN PRN Reason: Pain, severe (8-10) Last Admin: 08/19/17 06:18 Dose: 100 mg - Labs Labs: 08/19/17 08:14 08/19/17 08:14 PT 13.0 Seconds (9.8-13.1) 08/16/17 08:10 INR 1.2 (0.9-1.2) 08/16/17 08:10 APTT 40.1 Seconds (25.6-37.1) H 08/16/17 08:10 - Constitutional Appears: Well, No Acute Distress - ENT Exam ENT Exam: Mucous Membranes Moist - Respiratory Exam Respiratory Exam: Clear to Ausculation Bilateral, NORMAL BREATHING PATTERN - Cardiovascular Exam Cardiovascular Exam: REGULAR RHYTHM, +S1, +S2 - GI/Abdominal Exam GI & Abdominal Exam: Soft, Normal Bowel Sounds. absent: Tenderness - Neurological Exam Neurological Exam: Alert, Awake, Oriented x3 - Skin Skin Exam: Dry, Intact, Warm Assessment and Plan - Assessment and Plan (Free Text) Assessment: 61 y/o male sent to ER by podiatry for gangrenous right 2nd and 3rd toes. POD # 2 s/p angio and stenting of right lower extremity vessels. Plan: 1. Rt Foot 2nd/3rd toe gangrene: -POD #2 s/p percutaneous transluminal angioplasty & atherectomy of 100% occluded SFA w/ stenting of mid SFA and angioplasty w/ drug coated balloon of ostial SFA -CT Angiogram showed chronic SFA occlusion, calcified plaque popliteal artery, moderate stenosis; occluded anterior tibial artery, calcified tibioperoneal artery w/ moderate stenosis -R. foot x-ray: soft tissue swelling, osseous abnormality noted in the distal aspect of the forefoot -plans for forefoot amputation surgery as per Dr. Hightower on Thursday -patient is medically optimized for surgery as per cardio -started Brilinta 90mg PO BID -Cultures + Pseudomonas Aeruginosa; ID on board- continue w/ Cipro and Vanco. Vanco trough: 7.8 on 08/19 -Foot is dressed, clean and dry -Podiatry following, appreciate recs -increased Tramadol to 100mg PO Q6 PRN 2. Thrombocytosis -likely reactive -currently being followed by heme onc, will follow up w/ recs 3. Leukocytosis -cultures + for P. aeruginosa -WBC 12.2 - on Vanc, trough 7.8 -ID is following; appreciate recs 4. HTN: -chronic, asymptomatic, controlled -d/c Norvasc -added Coreg 25mg PO BID and Losartan 50mg PO QD 5. HLD -c/w atorvastatin 40mg PO QD 6. Prediabetes -Diet control 7. Diet -heart healthy 9.DVT Prophylaxis: -SCDs -Lovenox 40 SC
[2017-08-19] MEDS: Ciprofloxacin 400mg/200ml D5W 400 MG/200 ML BAG IVPB SCH ×3 (09:53→20:33)
--- NOTE | 2017-08-19 12:14 | CP.PCM.PN ---
Subjective - Date & Time of Evaluation Date of Evaluation: 08/19/17 Time of Evaluation: 12:12 - Subjective Subjective: Podiatry Progress Note for Dr. Pham 61 y/o male seen and evaluated at bedside this morning for gangrenous right 2nd and 3rd digits. Patient is AAOX3 and in no acute distress. Patient is currently still complaining of pain, mainly when the foot is elevated up on the bed. Patient states he isnow also having minimal pain to the 4th and 5th digits. States pain medications are helping to control it. Patient aware he will be scheduled for an amputation this week. Patient denies any F/N/V/C or SOB recently. Objective - Vital Signs/Intake and Output Vital Signs (last 24 hours): Temp Pulse Resp BP Pulse Ox 97.6 F 84 19 117/65 100 08/19/17 08:07 08/19/17 08:07 08/19/17 08:07 08/19/17 08:07 08/19/17 08:07 - Medications Medications: Current Medications Acetaminophen (Tylenol 325mg Tab) 650 mg PO Q6 PRN PRN Reason: Pain, Mild (1-3) Last Admin: 08/15/17 21:49 Dose: 650 mg Aspirin (Aspirin Chewable) 81 mg PO DAILY [facility] Last Admin: 08/19/17 09:55 Dose: 81 mg Atorvastatin Calcium (Lipitor) 40 mg PO DAILY@2100 [facility] Carvedilol (Coreg) 25 mg PO Q12 [facility] Last Admin: 08/19/17 09:54 Dose: 25 mg Enoxaparin Sodium (Lovenox) 40 mg SC HS [facility] PRN Reason: Protocol Last Admin: 08/18/17 22:33 Dose: Not Given Hydrochlorothiazide (Hydrodiuril) 25 mg PO DAILY [facility] Last Admin: 08/19/17 09:55 Dose: 25 mg Ciprofloxacin (Cipro 400mg/200ml Dsw) 400 mg in 200 mls @ 200 mls/hr IVPB Q12 [facility] PRN Reason: Protocol Last Admin: 08/19/17 09:54 Dose: 200 mls/hr Vancomycin HCl 1.25 gm/ Sodium (Chloride) 250 mls @ 166.667 mls/hr IVPB BID@ 0900,2100 [facility] PRN Reason: Protocol Last Admin: 08/19/17 09:56 Dose: 166.667 mls/hr Ketorolac Tromethamine (Toradol) 15 mg IVP Q6 PRN PRN Reason: Pain, severe (8-10) Last Admin: 08/16/17 20:09 Dose: 15 mg Losartan Potassium (Cozaar) 50 mg PO DAILY [facility] Last Admin: 08/19/17 09:54 Dose: 50 mg Nicotine (Nicoderm Cq) 1 patch TD DAILY [facility] Last Admin: 08/19/17 09:56 Dose: 1 patch Ticagrelor (Brilinta) 90 mg PO BID [facility] Last Admin: 08/19/17 09:54 Dose: 90 mg Tramadol HCl (Ultram) 100 mg PO Q6 PRN PRN Reason: Pain, severe (8-10) Last Admin: 08/19/17 06:18 Dose: 100 mg - Labs Labs: 08/19/17 08:14 08/19/17 08:14 PT 13.0 Seconds (9.8-13.1) 08/16/17 08:10 INR 1.2 (0.9-1.2) 08/16/17 08:10 APTT 40.1 Seconds (25.6-37.1) H 08/16/17 08:10 - Constitutional Appears: Well, Non-toxic, No Acute Distress - Head Exam Head Exam: ATRAUMATIC, NORMOCEPHALIC - Extremities Exam Additional comments: Right Lower Extremity focused exam: Vasc: DP and PT pulses are Non palpable, Temp gradient warm to cool from proximal to distal, right second and third digit are cold to touch, CFT delayed x 8; unable to assess to R 2nd and 3rd digits secondary to dry gangrene. Minimal edema and erythema noted to the L foot up to the level of the malleoli Neuro: Grossly diminished to entire forefoot Derm: R 2nd and 3rd toes are necrotic, 4th and 5th digits with increasing duskiness, fissures noted in 2nd and 3rd interdigital spaces with mild active serosanguinous drainage, malodor noted. Maceration noted to plantar and proximal aspects of 2nd and 3rd digits and in the interspace. Hyperpigmentation noted on the right foot up to the level of the metartarsal necks. MSK: Muscle power 4/5 in all muscle groups on the R side and 5/5 in all muscle groups of the L side. Patient unable to bend any digits of right foot - Neurological Exam Neurological Exam: Alert, Awake, Oriented x3 - Psychiatric Exam Psychiatric exam: Normal Affect, Normal Mood Assessment and Plan - Assessment and Plan (Free Text) Assessment: 61 y/o male patient admitted for gangrenous, infected right second and third digits with early signs of ischemic changes to right foot 4th and 5th digits Plan: Patient evaluated at bedside Plan discussed with Dr. Pham Chart, labs and vitals reviewed- WBC 12.2 Culture results: Pseudomonas Aeruginosa CT Angiogram: chronic occlusion SFA, calcified plaque popliteal artery, moderate stenosis; occluded ant tib artery, calcified tibioperoneal artery, moderate stenosis R foot x-ray: soft tissue swelling, osseous abnormality noted in the distal aspect of the forefoot Continue IV Antibiotics Foot dressed with betadine and DSD As per Campbell, patient cleared for an forefoot procedure; surgery with Dr. Pham on Thursday 7:45 AM TMA vs. amputation of the 2nd and 3rd digits/metatarsals discussed with patient - risks, benefits of both discussed- Patient expressed verbal understanding NPO Ordered will be placed on Medicine team on board regarding the surgery Podiatry will continue to follow while patient in house
[2017-08-19] MEDS ORDERED: Sodium Chloride 0.9% 500 ML IV SCH (17:15)
[2017-08-19] MEDS: Enoxaparin 40 mg Syringe SC SCH ×2 (21:44→22:00)
[2017-08-20 06:07] LABS: HEMOGLOBIN 12.2 g/dL (12.0-18.0); MEAN CELL VOLUME 94.2 fl (80.0-94.0); MEAN CORPUSCULAR HEMOGLOBIN 31.1 pg (27.0-31.0); RBC 3.92 Mil/uL (4.40-5.90); RED CELL DISTRIBUTION WIDTH 13.3 % (11.5-14.5); WHITE BLOOD COUNT 11.9 K/uL (4.8-10.8)
[2017-08-20 07:02] LABS: ALB/GLOB RATIO 1.1 (1.0-2.1); ALBUMIN 3.6 g/dL (3.5-5.0); ALT/SGPT 42 U/L (21-72); AST/SGOT 58 U/L (17-59); BLOOD UREA NITROGEN 14 mg/dl (9-20); CALCIUM 9.2 mg/dL (8.4-10.2); GFR AFRICAN-AMERICAN > 60; GFR NON-AFRICAN AMERICAN > 60
[2017-08-20] MEDS: Ciprofloxacin 400mg/200ml D5W 400 MG/200 ML BAG IVPB SCH ×2 (10:08→20:19)
--- NOTE | 2017-08-20 10:17 | CP.PCM.PN ---
Subjective - Date & Time of Evaluation Date of Evaluation: 08/20/17 Time of Evaluation: 10:16 - Subjective Subjective: 61 y/o male referred to ER by podiatry for gangrenous right 2nd and 3rd toes, POD #2 s/p angioplasty and stenting of right lower extremity vessels. Patient is seen and examined at bedside. Pain improved. No acute changes overnight. Objective - Vital Signs/Intake and Output Vital Signs (last 24 hours): Temp Pulse Resp BP Pulse Ox 98.3 F 79 19 112/75 98 08/20/17 08:15 08/20/17 10:09 08/20/17 08:15 08/20/17 10:09 08/20/17 08:15 - Medications Medications: Current Medications Acetaminophen (Tylenol 325mg Tab) 650 mg PO Q6 PRN PRN Reason: Pain, Mild (1-3) Last Admin: 08/15/17 21:49 Dose: 650 mg Aspirin (Aspirin Chewable) 81 mg PO DAILY [facility] Last Admin: 08/20/17 10:08 Dose: 81 mg Atorvastatin Calcium (Lipitor) 40 mg PO DAILY@2100 [facility] Last Admin: 08/19/17 20:37 Dose: 40 mg Carvedilol (Coreg) 25 mg PO Q12 [facility] Last Admin: 08/20/17 10:09 Dose: 25 mg Enoxaparin Sodium (Lovenox) 40 mg SC HS [facility] PRN Reason: Protocol Last Admin: 08/19/17 22:00 Dose: 40 mg Hydrochlorothiazide (Hydrodiuril) 25 mg PO DAILY [facility] Last Admin: 08/20/17 10:10 Dose: 25 mg Ciprofloxacin (Cipro 400mg/200ml Dsw) 400 mg in 200 mls @ 200 mls/hr IVPB Q12 [facility] PRN Reason: Protocol Last Admin: 08/20/17 10:08 Dose: 200 mls/hr Vancomycin HCl 1.25 gm/ Sodium (Chloride) 250 mls @ 166.667 mls/hr IVPB BID@ 0900,2100 [facility] PRN Reason: Protocol Last Admin: 08/20/17 10:10 Dose: 166.667 mls/hr Ketorolac Tromethamine (Toradol) 15 mg IVP Q6 PRN PRN Reason: Pain, severe (8-10) Last Admin: 08/16/17 20:09 Dose: 15 mg Losartan Potassium (Cozaar) 50 mg PO DAILY [facility] Last Admin: 08/20/17 10:09 Dose: 50 mg Nicotine (Nicoderm Cq) 1 patch TD DAILY [facility] Last Admin: 08/20/17 10:07 Dose: 1 patch Ticagrelor (Brilinta) 90 mg PO BID [facility] Last Admin: 08/19/17 17:15 Dose: 90 mg Tramadol HCl (Ultram) 100 mg PO Q6 PRN PRN Reason: Pain, severe (8-10) Last Admin: 08/20/17 08:31 Dose: 100 mg - Labs Labs: 08/20/17 05:30 08/20/17 05:30 PT 13.0 Seconds (9.8-13.1) 08/16/17 08:10 INR 1.2 (0.9-1.2) 08/16/17 08:10 APTT 40.1 Seconds (25.6-37.1) H 08/16/17 08:10 - Constitutional Appears: Well, No Acute Distress - ENT Exam ENT Exam: Mucous Membranes Moist - Cardiovascular Exam Cardiovascular Exam: REGULAR RHYTHM, +S1, +S2 - GI/Abdominal Exam GI & Abdominal Exam: Soft, Normal Bowel Sounds. absent: Tenderness - Extremities Exam Extremities Exam: Pedal Edema Additional comments: Right foot bandage, clean and dry - Neurological Exam Neurological Exam: Alert, Awake, Oriented x3 - Skin Skin Exam: Dry, Intact, Warm Assessment and Plan - Assessment and Plan (Free Text) Assessment: Plan: 1. Rt Foot 2nd/3rd toe gangrene: -POD #3 s/p percutaneous transluminal angioplasty & atherectomy of 100% occluded SFA w/ stenting of mid SFA and angioplasty w/ drug coated balloon of ostial SFA -CT Angiogram showed chronic SFA occlusion, calcified plaque popliteal artery, moderate stenosis; occluded anterior tibial artery, calcified tibioperoneal artery w/ moderate stenosis -R. foot x-ray: soft tissue swelling, osseous abnormality noted in the distal aspect of the forefoot -plans for forefoot amputation surgery as per Dr. Hightower on Thursday 7:45AM -patient is medically optimized for surgery as per cardio -started Brilinta 90mg PO BID -Cultures + Pseudomonas Aeruginosa; ID on board- continue w/ Cipro and Vanco. Vanco trough: 7.8 on 08/19 -Foot is dressed, clean and dry -Podiatry following, appreciate recs -Tramadol to 100mg PO Q6 PRN 2. Thrombocytosis -likely reactive -currently being followed by heme onc, will follow up w/ recs 3. Leukocytosis -cultures + for P. aeruginosa -WBC 11.9 - on Vanc, trough 7.8 -ID is following; appreciate recs 4. HTN: -chronic, asymptomatic, controlled -d/c Norvasc -added Coreg 25mg PO BID and Losartan 50mg PO QD 5. HLD -c/w atorvastatin 40mg PO QD 6. Prediabetes -Diet control 7. Diet -NPO at midnight 9.DVT Prophylaxis: -Hold Lovenox and Brilinta prior to surgery
--- NOTE | 2017-08-20 10:46 | CP.PCM.PN ---
Subjective - Date & Time of Evaluation Date of Evaluation: 08/20/17 Time of Evaluation: 10:44 - Subjective Subjective: Podiatry progress note for Dr. Pham, 61 yo male seen at bedside this morning for gangrenous right second and third digits. Patient is not in any acute distress and is AAOx3. Patient is still complaining of pain when the leg is elevated on the bed, and admits to pain medications alleviating the pain. Patient shows verbal understanding of the amputation scheduled for tomorrow 08/21/17. Patient denies F/N/V/SOB/Chills. Objective - Vital Signs/Intake and Output Vital Signs (last 24 hours): Temp Pulse Resp BP Pulse Ox 98.3 F 79 19 112/75 98 08/20/17 08:15 08/20/17 10:09 08/20/17 08:15 08/20/17 10:09 08/20/17 08:15 - Medications Medications: Current Medications Acetaminophen (Tylenol 325mg Tab) 650 mg PO Q6 PRN PRN Reason: Pain, Mild (1-3) Last Admin: 08/15/17 21:49 Dose: 650 mg Aspirin (Aspirin Chewable) 81 mg PO DAILY [facility] Last Admin: 08/20/17 10:08 Dose: 81 mg Atorvastatin Calcium (Lipitor) 40 mg PO DAILY@2100 [facility] Last Admin: 08/19/17 20:37 Dose: 40 mg Carvedilol (Coreg) 25 mg PO Q12 [facility] Last Admin: 08/20/17 10:09 Dose: 25 mg Enoxaparin Sodium (Lovenox) 40 mg SC HS [facility] PRN Reason: Protocol Last Admin: 08/19/17 22:00 Dose: 40 mg Hydrochlorothiazide (Hydrodiuril) 25 mg PO DAILY [facility] Last Admin: 08/20/17 10:10 Dose: 25 mg Ciprofloxacin (Cipro 400mg/200ml Dsw) 400 mg in 200 mls @ 200 mls/hr IVPB Q12 [facility] PRN Reason: Protocol Last Admin: 08/20/17 10:08 Dose: 200 mls/hr Vancomycin HCl 1.25 gm/ Sodium (Chloride) 250 mls @ 166.667 mls/hr IVPB BID@ 0900,2100 [facility] PRN Reason: Protocol Last Admin: 08/20/17 10:10 Dose: 166.667 mls/hr Ketorolac Tromethamine (Toradol) 15 mg IVP Q6 PRN PRN Reason: Pain, severe (8-10) Last Admin: 08/16/17 20:09 Dose: 15 mg Losartan Potassium (Cozaar) 50 mg PO DAILY [facility] Last Admin: 08/20/17 10:09 Dose: 50 mg Nicotine (Nicoderm Cq) 1 patch TD DAILY [facility] Last Admin: 08/20/17 10:07 Dose: 1 patch Ticagrelor (Brilinta) 90 mg PO BID [facility] Last Admin: 08/19/17 17:15 Dose: 90 mg Tramadol HCl (Ultram) 100 mg PO Q6 PRN PRN Reason: Pain, severe (8-10) Last Admin: 08/20/17 08:31 Dose: 100 mg - Labs Labs: 08/20/17 05:30 08/20/17 05:30 PT 13.0 Seconds (9.8-13.1) 08/16/17 08:10 INR 1.2 (0.9-1.2) 08/16/17 08:10 APTT 40.1 Seconds (25.6-37.1) H 08/16/17 08:10 - Constitutional Appears: Well, Non-toxic, No Acute Distress - Head Exam Head Exam: ATRAUMATIC, NORMOCEPHALIC - Extremities Exam Extremities Exam: absent: Normal Capillary Refill Additional comments: Right Lower Extremity focused exam: Vasc: DP and PT pulses are Non palpable, Temp gradient warm to cool from proximal to distal, right second and third digit are cold to touch, CFT delayed x 3; unable to assess to R 2nd and 3rd digits secondary to dry gangrene, no edema or erythema noted. Neuro: Grossly diminished to entire forefoot Derm: R 2nd and 3rd toes are necrotic, 4th and 5th digits with increasing duskiness, fissures noted in 2nd and 3rd interdigital spaces with increasing active serosanguinous drainage, malodor noted. Maceration noted to plantar and proximal aspects of 2nd and 3rd digits and in the interspace. Hyperpigmentation noted on the right foot up to the level of the metartarsal necks. MSK: Muscle power 4/5 in all muscle groups on the R side and 5/5 in all muscle groups of the L side. Patient unable to bend any digits of right foot - Neurological Exam Neurological Exam: Alert, Awake, Oriented x3 - Psychiatric Exam Psychiatric exam: Normal Affect, Normal Mood Assessment and Plan - Assessment and Plan (Free Text) Assessment: 61 y/o male patient with gangrenous, infected right second and third digits with early signs of ischemic changes to fourth and fifth digits Plan: Patient evaluated at bedside Plan discussed with Dr. Pham Chart, labs and vitals reviewed- afebrile, WBC 11.9 Culture results: Pseudomonas Aeruginosa CT Angiogram: chronic occlusion SFA, calcified plaque popliteal artery, moderate stenosis; occluded ant tib artery, calcified tibioperoneal artery, moderate stenosis R foot x-ray: soft tissue swelling, osseous abnormality noted in the distal aspect of the forefoot Continue IV Antibiotics- cipro and vanc Foot dressed with betadine and DSD As per Campbell, patient cleared for a forefoot procedure Podiatry plan: Surgery with Dr. Pham tomorrow 08/21 at 7:45am. TMA vs. amputation of the 2nd and 3rd digits/metatarsals discussed with patient - risks, benefits of both discussed- Patient expressed verbal understanding Patient NPO starting at midnight, hold lovenox and brilinta. Medicine team on board regarding the surgery Podiatry will continue to follow while patient in house
[2017-08-21 06:22] LABS: HEMOGLOBIN 12.2 g/dL (12.0-18.0); MEAN CELL VOLUME 93.9 fl (80.0-94.0); MEAN CORPUSCULAR HEMOGLOBIN 31.5 pg (27.0-31.0); MEAN CORPUSCULAR HGB CONC 33.5 g/dL (33.0-37.0); RBC 3.87 Mil/uL (4.40-5.90); RED CELL DISTRIBUTION WIDTH 13.6 % (11.5-14.5); WHITE BLOOD COUNT 11.5 K/uL (4.8-10.8)
[2017-08-21 06:42] LABS: BLOOD UREA NITROGEN 16 mg/dl (9-20); CALCIUM 9.4 mg/dL (8.4-10.2); GFR AFRICAN-AMERICAN > 60; GFR NON-AFRICAN AMERICAN > 60
[2017-08-21] MEDS ORDERED: Bupivacaine 0.5% Inj(30mL) IJ ONE (07:09)
[2017-08-21] MEDS ORDERED: Lidocaine 1% Inj (20ml) IJ ONE (07:09)
[2017-08-21] MEDS ORDERED: Propofol 10 mg/ml Inj (20 ML) ONE (07:26)
[2017-08-21] MEDS ORDERED: ePHEDrine 50 mg/ml Inj ONE (07:27)
[2017-08-21] MEDS ORDERED: Succinylcholine 200 mg/10 ml Inj IV ONE (07:27)
[2017-08-21] MEDS ORDERED: Midazolam 2 MG/2 ML VIAL ONE (07:27)
[2017-08-21] MEDS ORDERED: Propofol 10 mg/ml 2,000 MG/200 ML VIAL ONE (07:50)
--- NOTE | 2017-08-21 08:08 | CP.PCM.PN ---
Subjective - Date & Time of Evaluation Date of Evaluation: 08/21/17 Time of Evaluation: 08:06 - Subjective Subjective: Podiatry progress note for attending Dr. Pham, 61 y/o male seen and evaluated at bedside today prior to surgery. Patient was resting comfortably and in no acute distress. Patient's dressing was dry clean and intact. Patient's NPO status was confirmed. Objective - Vital Signs/Intake and Output Vital Signs (last 24 hours): Temp Pulse Resp BP Pulse Ox 97.7 F 74 20 130/71 100 08/21/17 07:58 08/21/17 07:58 08/21/17 07:58 08/21/17 07:58 08/21/17 07:58 - Medications Medications: Current Medications Acetaminophen (Tylenol 325mg Tab) 650 mg PO Q6 PRN PRN Reason: Pain, Mild (1-3) Last Admin: 08/15/17 21:49 Dose: 650 mg Aspirin (Aspirin Chewable) 81 mg PO DAILY [facility] Last Admin: 08/20/17 10:08 Dose: 81 mg Atorvastatin Calcium (Lipitor) 40 mg PO DAILY@2100 [facility] Last Admin: 08/20/17 20:37 Dose: 40 mg Carvedilol (Coreg) 25 mg PO Q12 [facility] Last Admin: 08/20/17 20:33 Dose: 25 mg Enoxaparin Sodium (Lovenox) 40 mg SC HS [facility] PRN Reason: Protocol Last Admin: 08/19/17 22:00 Dose: 40 mg Hydrochlorothiazide (Hydrodiuril) 25 mg PO DAILY [facility] Last Admin: 08/20/17 10:10 Dose: 25 mg Ciprofloxacin (Cipro 400mg/200ml Dsw) 400 mg in 200 mls @ 200 mls/hr IVPB Q12 [facility] PRN Reason: Protocol Last Admin: 08/20/17 20:19 Dose: 200 mls/hr Vancomycin HCl 1.25 gm/ Sodium (Chloride) 250 mls @ 166.667 mls/hr IVPB BID@ 0900,2100 [facility] PRN Reason: Protocol Last Admin: 08/20/17 20:18 Dose: 166.667 mls/hr Ketorolac Tromethamine (Toradol) 15 mg IVP Q6 PRN PRN Reason: Pain, severe (8-10) Last Admin: 08/21/17 01:36 Dose: 15 mg Losartan Potassium (Cozaar) 50 mg PO DAILY [facility] Last Admin: 08/20/17 10:09 Dose: 50 mg Nicotine (Nicoderm Cq) 1 patch TD DAILY [facility] Last Admin: 08/20/17 10:07 Dose: 1 patch Ticagrelor (Brilinta) 90 mg PO BID [facility] Last Admin: 08/19/17 17:15 Dose: 90 mg Tramadol HCl (Ultram) 100 mg PO Q6 PRN PRN Reason: Pain, severe (8-10) Last Admin: 08/20/17 18:42 Dose: 100 mg - Labs Labs: 08/21/17 06:00 08/21/17 06:00 PT 13.0 Seconds (9.8-13.1) 08/16/17 08:10 INR 1.2 (0.9-1.2) 08/16/17 08:10 APTT 40.1 Seconds (25.6-37.1) H 08/16/17 08:10 - Constitutional Appears: Well, Non-toxic, No Acute Distress - Head Exam Head Exam: ATRAUMATIC, NORMOCEPHALIC - Extremities Exam Additional comments: Dressing was left intact as patient was going to surgery - Neurological Exam Neurological Exam: Alert, Awake, Oriented x3 - Psychiatric Exam Psychiatric exam: Normal Affect, Normal Mood Assessment and Plan - Assessment and Plan (Free Text) Assessment: 61 y/o male with gangrenous, infected right second and third digits with early signs of ischemic changes to fourth and fifth digits Plan: Patient seen and evaluated at bedside Patient to be going to the OR today with Dr. Pham Dressing not changed Patient showed verbal understanding and all questions were answered.
[2017-08-21] MEDS: Lactated Ringer's 1,000 ML IV ONE ×2 (08:20→10:27)
[2017-08-21] MEDS ORDERED: Sodium Chloride 0.9% 500 ML IV ONE ×2 (08:20→10:21)
[2017-08-21] MEDS ORDERED: Bupivacaine 0.25% Inj(30mL) IJ ONE ×2 (08:35→10:21)
[2017-08-21] MEDS ORDERED: Ketamine 50 mg/ml Inj (10 ml) ONE (08:36)
[2017-08-21] MEDS: Ciprofloxacin 400mg/200ml D5W 400 MG/200 ML BAG IVPB SCH ×3 (09:42→21:47)
[2017-08-21] MEDS ORDERED: HYDROmorphone 0.5 mg/0.5 ml ISec IVP PRN (10:33)
--- NOTE | 2017-08-21 10:33 | PCM.SURG1 ---
Surgeon's Initial Post Op Note - Surgeon's Notes Surgeon: Dandre Pham Dough Molder Hand: Dalila Haynes PGY3, Juni Delgadillo PGY2, Faizan Ceballos PGY1 Type of Anesthesia: IV Sedation, Local Anesthesia Administered By: Guillermo Mcnamara Pre-Operative Diagnosis: Dry gangrene of the left 2nd, 3rd and 4th digits. Operative Findings: See dictation. M: 3-0 vicryl, 3-0 Nylon. I: preop 20 cc marcaine 0.25%. Postop 10 cc marcaine 0.25% Post-Operative Diagnosis: Same Operation Performed: Transmetatarsal amputation of the L foot Specimen/Specimens Removed: Left forefoot Estimated Blood Loss: EBL {In ML}: 20 Blood Products Given: N/A Drains Used: No Drains Post-Op Condition: Good Date of Surgery/Procedure: 08/21/17 Time of Surgery/Procedure: 10:37
--- NOTE | 2017-08-21 11:46 | RAD ---
PROCEDURE: Right Foot Radiographs. HISTORY: s/p Right foot TMA COMPARISON: Right foot radiographs dated 08/10/2017. FINDINGS: BONES: Interval transmetatarsal amputation. JOINTS: Normal. SOFT TISSUES: Postsurgical changes. OTHER FINDINGS: None. IMPRESSION: Interval transmetatarsal amputation with adjacent postsurgical changes.
--- NOTE | 2017-08-21 14:51 | CP.PCM.PN ---
Subjective - Date & Time of Evaluation Date of Evaluation: 08/21/17 Time of Evaluation: 16:59 - Subjective Subjective: 61 y/o male referred to ER by podiatry for gangrenous right 2nd and 3rd toes, s/ p right transmetatarsal amputation, POD #4 s/p angioplasty and stenting of right lower extremity vessels. Patient is seen and examined at bedside. Eating lunch. Pain is controlled. Objective - Vital Signs/Intake and Output Vital Signs (last 24 hours): Temp Pulse Resp BP Pulse Ox 98.4 F 78 18 135/70 100 08/21/17 12:24 08/21/17 12:24 08/21/17 12:24 08/21/17 12:24 08/21/17 12:24 Intake and Output: 08/21/17 08/21/17 06:59 18:59 Intake Total 620 Balance 620 - Medications Medications: Current Medications Acetaminophen (Tylenol 325mg Tab) 650 mg PO Q6 PRN PRN Reason: Pain, Mild (1-3) Last Admin: 08/15/17 21:49 Dose: 650 mg Aspirin (Aspirin Chewable) 81 mg PO DAILY [facility] Last Admin: 08/21/17 09:42 Dose: Not Given Atorvastatin Calcium (Lipitor) 40 mg PO DAILY@2100 [facility] Last Admin: 08/20/17 20:37 Dose: 40 mg Carvedilol (Coreg) 25 mg PO Q12 [facility] Last Admin: 08/21/17 08:15 Dose: 25 mg Enoxaparin Sodium (Lovenox) 40 mg SC HS [facility] PRN Reason: Protocol Last Admin: 08/19/17 22:00 Dose: 40 mg Hydrochlorothiazide (Hydrodiuril) 25 mg PO DAILY [facility] Last Admin: 08/21/17 09:47 Dose: Not Given Ciprofloxacin (Cipro 400mg/200ml Dsw) 400 mg in 200 mls @ 200 mls/hr IVPB Q12 [facility] PRN Reason: Protocol Last Admin: 08/21/17 12:06 Dose: 200 mls/hr Vancomycin HCl 1.25 gm/ Sodium (Chloride) 250 mls @ 166.667 mls/hr IVPB BID@ 0900,2100 [facility] PRN Reason: Protocol Last Admin: 08/21/17 09:48 Dose: Not Given Ketorolac Tromethamine (Toradol) 15 mg IVP Q6 PRN PRN Reason: Pain, severe (8-10) Last Admin: 08/21/17 13:18 Dose: 15 mg Losartan Potassium (Cozaar) 50 mg PO DAILY [facility] Last Admin: 08/21/17 11:50 Dose: 50 mg Nicotine (Nicoderm Cq) 1 patch TD DAILY [facility] Last Admin: 08/21/17 09:48 Dose: Not Given Ticagrelor (Brilinta) 90 mg PO BID [facility] Last Admin: 08/19/17 17:15 Dose: 90 mg Tramadol HCl (Ultram) 100 mg PO Q6 PRN PRN Reason: Pain, severe (8-10) Last Admin: 08/21/17 11:49 Dose: 100 mg - Labs Labs: 08/21/17 06:00 08/21/17 06:00 PT 13.0 Seconds (9.8-13.1) 08/16/17 08:10 INR 1.2 (0.9-1.2) 08/16/17 08:10 APTT 40.1 Seconds (25.6-37.1) H 08/16/17 08:10 - Constitutional Appears: Well, No Acute Distress - Respiratory Exam Respiratory Exam: Clear to Ausculation Bilateral, NORMAL BREATHING PATTERN - Cardiovascular Exam Cardiovascular Exam: REGULAR RHYTHM, +S1, +S2 - GI/Abdominal Exam GI & Abdominal Exam: Soft, Normal Bowel Sounds. absent: Tenderness - Extremities Exam Additional comments: right foot bandaged, clean and dry - Neurological Exam Neurological Exam: Alert, Awake, Oriented x3 Assessment and Plan - Assessment and Plan (Free Text) Assessment: 61 y/o male admitted for gangrenous right 2nd and 3rd toes, s/p right transmetatarsal amputation, POD #4 s/p angioplasty and stenting of right lower extremity vessels. 1. Rt Foot 2nd/3rd toe gangrene: -s/p right transmetatarsal amputation -POD #4 s/p percutaneous transluminal angioplasty & atherectomy of 100% occluded SFA w/ stenting of mid SFA and angioplasty w/ drug coated balloon of ostial SFA -CT Angiogram showed chronic SFA occlusion, calcified plaque popliteal artery, moderate stenosis; occluded anterior tibial artery, calcified tibioperoneal artery w/ moderate stenosis -R. foot x-ray: soft tissue swelling, osseous abnormality noted in the distal aspect of the forefoot -Cultures + Pseudomonas Aeruginosa; ID on board- continue w/ Cipro and Vanco. Vanco trough: 7.8 on 08/19 -Foot is dressed, clean and dry -Podiatry following, appreciate recs -Tramadol to 100mg PO Q6 PRN -Toradol 15mg IVP Q6 PRN 2. Thrombocytosis -likely reactive -currently being followed by heme onc, will follow up w/ recs 3. Leukocytosis -cultures + for P. aeruginosa -WBC 11.5 -ID is following; appreciate recs 4. HTN: -chronic, asymptomatic, controlled -d/c Norvasc -Coreg 25mg PO BID and Losartan 50mg PO QD 5. HLD -c/w atorvastatin 40mg PO QD 6. Prediabetes -Diet control 7. Diet -Heart healthy 9.DVT Prophylaxis: -will restart lovenox and Brillinta tonight
--- NOTE | 2017-08-21 18:32 | CP.PCM.PN ---
Subjective - Date & Time of Evaluation Date of Evaluation: 08/20/17 Time of Evaluation: 18:32 - Subjective Subjective: s/p revascularization Objective - Vital Signs/Intake and Output Vital Signs (last 24 hours): Temp Pulse Resp BP Pulse Ox 97.6 F 82 20 145/72 100 08/21/17 15:49 08/21/17 15:49 08/21/17 15:49 08/21/17 15:49 08/21/17 15:49 Intake and Output: 08/21/17 08/21/17 06:59 18:59 Intake Total 620 Balance 620 - Medications Medications: Current Medications Acetaminophen (Tylenol 325mg Tab) 650 mg PO Q6 PRN PRN Reason: Pain, Mild (1-3) Last Admin: 08/15/17 21:49 Dose: 650 mg Aspirin (Aspirin Chewable) 81 mg PO DAILY [facility] Last Admin: 08/21/17 09:42 Dose: Not Given Atorvastatin Calcium (Lipitor) 40 mg PO DAILY@2100 [facility] Last Admin: 08/20/17 20:37 Dose: 40 mg Carvedilol (Coreg) 25 mg PO Q12 [facility] Last Admin: 08/21/17 08:15 Dose: 25 mg Enoxaparin Sodium (Lovenox) 40 mg SC HS [facility] PRN Reason: Protocol Last Admin: 08/19/17 22:00 Dose: 40 mg Hydrochlorothiazide (Hydrodiuril) 25 mg PO DAILY [facility] Last Admin: 08/21/17 09:47 Dose: Not Given Ciprofloxacin (Cipro 400mg/200ml Dsw) 400 mg in 200 mls @ 200 mls/hr IVPB Q12 [facility] PRN Reason: Protocol Last Admin: 08/21/17 12:06 Dose: 200 mls/hr Vancomycin HCl 1.25 gm/ Sodium (Chloride) 250 mls @ 166.667 mls/hr IVPB BID@ 0900,2100 [facility] PRN Reason: Protocol Last Admin: 08/21/17 14:53 Dose: 166.667 mls/hr Ketorolac Tromethamine (Toradol) 15 mg IVP Q6 PRN PRN Reason: Pain, severe (8-10) Last Admin: 08/21/17 13:18 Dose: 15 mg Losartan Potassium (Cozaar) 50 mg PO DAILY [facility] Last Admin: 08/21/17 11:50 Dose: 50 mg Nicotine (Nicoderm Cq) 1 patch TD DAILY [facility] Last Admin: 08/21/17 09:48 Dose: Not Given Ticagrelor (Brilinta) 90 mg PO BID [facility] Last Admin: 08/19/17 17:15 Dose: 90 mg Tramadol HCl (Ultram) 100 mg PO Q6 PRN PRN Reason: Pain, severe (8-10) Last Admin: 08/21/17 16:56 Dose: 100 mg - Labs Labs: 08/21/17 06:00 08/21/17 06:00 PT 13.0 Seconds (9.8-13.1) 08/16/17 08:10 INR 1.2 (0.9-1.2) 08/16/17 08:10 APTT 40.1 Seconds (25.6-37.1) H 08/16/17 08:10 - Constitutional Appears: Well - Head Exam Head Exam: ATRAUMATIC, NORMAL INSPECTION, NORMOCEPHALIC - Eye Exam Eye Exam: EOMI, Normal appearance, PERRL Pupil Exam: NORMAL ACCOMODATION, PERRL - ENT Exam ENT Exam: Mucous Membranes Moist, Normal Exam - Neck Exam Neck Exam: Full ROM, Normal Inspection. absent: Lymphadenopathy - Respiratory Exam Respiratory Exam: Clear to Ausculation Bilateral, NORMAL BREATHING PATTERN - Cardiovascular Exam Cardiovascular Exam: REGULAR RHYTHM, +S1, +S2. absent: Murmur - GI/Abdominal Exam GI & Abdominal Exam: Soft, Normal Bowel Sounds. absent: Tenderness - Extremities Exam Extremities Exam: Full ROM, Normal Capillary Refill, Normal Inspection. absent : Joint Swelling, Pedal Edema - Back Exam Back Exam: NORMAL INSPECTION - Neurological Exam Neurological Exam: Alert, Awake, CN II-XII Intact, Normal Gait, Oriented x3 - Psychiatric Exam Psychiatric exam: Normal Affect, Normal Mood - Skin Skin Exam: Dry, Intact, Normal Color, Warm Assessment and Plan (1) PVD (peripheral vascular disease) Status: Acute (2) Gangrene due to arterial insufficiency Status: Acute (3) Hypertension Status: Acute
--- NOTE | 2017-08-21 18:33 | CP.PCM.PN ---
Subjective - Date & Time of Evaluation Date of Evaluation: 08/21/17 Time of Evaluation: 18:32 - Subjective Subjective: feeling fine Objective - Vital Signs/Intake and Output Vital Signs (last 24 hours): Temp Pulse Resp BP Pulse Ox 97.6 F 82 20 145/72 100 08/21/17 15:49 08/21/17 15:49 08/21/17 15:49 08/21/17 15:49 08/21/17 15:49 Intake and Output: 08/21/17 08/21/17 06:59 18:59 Intake Total 620 Balance 620 - Medications Medications: Current Medications Acetaminophen (Tylenol 325mg Tab) 650 mg PO Q6 PRN PRN Reason: Pain, Mild (1-3) Last Admin: 08/15/17 21:49 Dose: 650 mg Aspirin (Aspirin Chewable) 81 mg PO DAILY [facility] Last Admin: 08/21/17 09:42 Dose: Not Given Atorvastatin Calcium (Lipitor) 40 mg PO DAILY@2100 [facility] Last Admin: 08/20/17 20:37 Dose: 40 mg Carvedilol (Coreg) 25 mg PO Q12 [facility] Last Admin: 08/21/17 08:15 Dose: 25 mg Enoxaparin Sodium (Lovenox) 40 mg SC HS [facility] PRN Reason: Protocol Last Admin: 08/19/17 22:00 Dose: 40 mg Hydrochlorothiazide (Hydrodiuril) 25 mg PO DAILY [facility] Last Admin: 08/21/17 09:47 Dose: Not Given Ciprofloxacin (Cipro 400mg/200ml Dsw) 400 mg in 200 mls @ 200 mls/hr IVPB Q12 [facility] PRN Reason: Protocol Last Admin: 08/21/17 12:06 Dose: 200 mls/hr Vancomycin HCl 1.25 gm/ Sodium (Chloride) 250 mls @ 166.667 mls/hr IVPB BID@ 0900,2100 [facility] PRN Reason: Protocol Last Admin: 08/21/17 14:53 Dose: 166.667 mls/hr Ketorolac Tromethamine (Toradol) 15 mg IVP Q6 PRN PRN Reason: Pain, severe (8-10) Last Admin: 08/21/17 13:18 Dose: 15 mg Losartan Potassium (Cozaar) 50 mg PO DAILY [facility] Last Admin: 08/21/17 11:50 Dose: 50 mg Nicotine (Nicoderm Cq) 1 patch TD DAILY [facility] Last Admin: 08/21/17 09:48 Dose: Not Given Ticagrelor (Brilinta) 90 mg PO BID [facility] Last Admin: 08/19/17 17:15 Dose: 90 mg Tramadol HCl (Ultram) 100 mg PO Q6 PRN PRN Reason: Pain, severe (8-10) Last Admin: 08/21/17 16:56 Dose: 100 mg - Labs Labs: 08/21/17 06:00 08/21/17 06:00 PT 13.0 Seconds (9.8-13.1) 08/16/17 08:10 INR 1.2 (0.9-1.2) 08/16/17 08:10 APTT 40.1 Seconds (25.6-37.1) H 08/16/17 08:10 - Constitutional Appears: Well - Head Exam Head Exam: ATRAUMATIC, NORMAL INSPECTION, NORMOCEPHALIC - Eye Exam Eye Exam: EOMI, Normal appearance, PERRL Pupil Exam: NORMAL ACCOMODATION, PERRL - ENT Exam ENT Exam: Mucous Membranes Moist, Normal Exam - Neck Exam Neck Exam: Full ROM, Normal Inspection. absent: Lymphadenopathy - Respiratory Exam Respiratory Exam: Clear to Ausculation Bilateral, NORMAL BREATHING PATTERN - Cardiovascular Exam Cardiovascular Exam: REGULAR RHYTHM, +S1, +S2. absent: Murmur - GI/Abdominal Exam GI & Abdominal Exam: Soft, Normal Bowel Sounds. absent: Tenderness - Extremities Exam Extremities Exam: Full ROM, Normal Capillary Refill, Normal Inspection. absent : Joint Swelling, Pedal Edema - Back Exam Back Exam: NORMAL INSPECTION - Neurological Exam Neurological Exam: Alert, Awake, CN II-XII Intact, Normal Gait, Oriented x3 - Psychiatric Exam Psychiatric exam: Normal Affect, Normal Mood - Skin Skin Exam: Dry, Intact, Normal Color, Warm Assessment and Plan (1) PVD (peripheral vascular disease) Status: Acute (2) Gangrene due to arterial insufficiency Status: Acute (3) Hypertension Status: Acute
[2017-08-22 07:40] LABS: HEMOGLOBIN 11.7 g/dL (12.0-18.0); MEAN CELL VOLUME 94.5 fl (80.0-94.0); MEAN CORPUSCULAR HEMOGLOBIN 32.4 pg (27.0-31.0); MEAN CORPUSCULAR HGB CONC 34.3 g/dL (33.0-37.0); RBC 3.62 Mil/uL (4.40-5.90); RED CELL DISTRIBUTION WIDTH 13.3 % (11.5-14.5); WHITE BLOOD COUNT 15.1 K/uL (4.8-10.8)
[2017-08-22 07:44] LABS: BLOOD UREA NITROGEN 13 mg/dl (9-20); CALCIUM 9.1 mg/dL (8.4-10.2); GFR AFRICAN-AMERICAN > 60; GFR NON-AFRICAN AMERICAN > 60
--- NOTE | 2017-08-22 09:29 | CP.PCM.PN ---
Subjective - Date & Time of Evaluation Date of Evaluation: 08/22/17 Time of Evaluation: 09:27 - Subjective Subjective: Pt had 3 toes of his left foot amputated. Pt is asleep right now but according to his nurse, he has been comfortable.. His CBC showed a WBC of 15.1, Hgb 11.7 and the platelets of 66k. I still feel pt has reactive thrombocytosis, and platelets will come down as his condition improves. In the meanwhile he is on Lovenox. Hydroxyurea should be given only if the platelets go above 800k. Will follow . Objective - Vital Signs/Intake and Output Vital Signs (last 24 hours): Temp Pulse Resp BP Pulse Ox 98.3 F 79 19 127/69 100 08/22/17 08:02 08/22/17 08:02 08/22/17 08:02 08/22/17 08:02 08/22/17 08:02 - Medications Medications: Current Medications Acetaminophen (Tylenol 325mg Tab) 650 mg PO Q6 PRN PRN Reason: Pain, Mild (1-3) Last Admin: 08/15/17 21:49 Dose: 650 mg Aspirin (Aspirin Chewable) 81 mg PO DAILY [facility] Last Admin: 08/21/17 09:42 Dose: Not Given Atorvastatin Calcium (Lipitor) 40 mg PO DAILY@2100 [facility] Last Admin: 08/21/17 21:16 Dose: 40 mg Carvedilol (Coreg) 25 mg PO Q12 [facility] Last Admin: 08/21/17 21:16 Dose: 25 mg Enoxaparin Sodium (Lovenox) 40 mg SC HS [facility] PRN Reason: Protocol Last Admin: 08/19/17 22:00 Dose: 40 mg Hydrochlorothiazide (Hydrodiuril) 25 mg PO DAILY [facility] Last Admin: 08/21/17 09:47 Dose: Not Given Ciprofloxacin (Cipro 400mg/200ml Dsw) 400 mg in 200 mls @ 200 mls/hr IVPB Q12 [facility] PRN Reason: Protocol Last Admin: 08/21/17 21:47 Dose: 200 mls/hr Vancomycin HCl 1.25 gm/ Sodium (Chloride) 250 mls @ 166.667 mls/hr IVPB BID@ 0900,2100 [facility] PRN Reason: Protocol Last Admin: 08/21/17 21:14 Dose: 166.667 mls/hr Ketorolac Tromethamine (Toradol) 15 mg IVP Q6 PRN PRN Reason: Pain, severe (8-10) Last Admin: 08/22/17 05:15 Dose: 15 mg Losartan Potassium (Cozaar) 50 mg PO DAILY [facility] Last Admin: 08/21/17 11:50 Dose: 50 mg Nicotine (Nicoderm Cq) 1 patch TD DAILY [facility] Last Admin: 08/21/17 09:48 Dose: Not Given Ticagrelor (Brilinta) 90 mg PO BID [facility] Last Admin: 08/19/17 17:15 Dose: 90 mg Tramadol HCl (Ultram) 100 mg PO Q6 PRN PRN Reason: Pain, severe (8-10) Last Admin: 08/21/17 22:46 Dose: 100 mg - Labs Labs: 08/22/17 06:30 08/22/17 06:30 PT 13.0 Seconds (9.8-13.1) 08/16/17 08:10 INR 1.2 (0.9-1.2) 08/16/17 08:10 APTT 40.1 Seconds (25.6-37.1) H 08/16/17 08:10
[2017-08-22] MEDS: Ciprofloxacin 400mg/200ml D5W 400 MG/200 ML BAG IVPB SCH ×2 (11:23→21:00)
--- NOTE | 2017-08-22 14:38 | CP.PCM.PN ---
Subjective - Date & Time of Evaluation Date of Evaluation: 08/22/17 Time of Evaluation: 14:37 - Subjective Subjective: 61 y/o male s/pod #1 right TMA amputation for gangrenous right 2nd and 3rd toes. Patient is seen and examined at bedside. Eating lunch. Pain is improving. Objective - Vital Signs/Intake and Output Vital Signs (last 24 hours): Temp Pulse Resp BP Pulse Ox 98.3 F 79 19 127/69 100 08/22/17 08:02 08/22/17 11:24 08/22/17 08:02 08/22/17 11:24 08/22/17 08:02 - Medications Medications: Current Medications Acetaminophen (Tylenol 325mg Tab) 650 mg PO Q6 PRN PRN Reason: Pain, Mild (1-3) Last Admin: 08/15/17 21:49 Dose: 650 mg Aspirin (Aspirin Chewable) 81 mg PO DAILY [facility] Last Admin: 08/22/17 11:23 Dose: 81 mg Atorvastatin Calcium (Lipitor) 40 mg PO DAILY@2100 [facility] Last Admin: 08/21/17 21:16 Dose: 40 mg Carvedilol (Coreg) 25 mg PO Q12 [facility] Last Admin: 08/22/17 11:24 Dose: 25 mg Enoxaparin Sodium (Lovenox) 40 mg SC HS [facility] PRN Reason: Protocol Last Admin: 08/19/17 22:00 Dose: 40 mg Hydrochlorothiazide (Hydrodiuril) 25 mg PO DAILY [facility] Last Admin: 08/22/17 11:25 Dose: 25 mg Ciprofloxacin (Cipro 400mg/200ml Dsw) 400 mg in 200 mls @ 200 mls/hr IVPB Q12 [facility] PRN Reason: Protocol Last Admin: 08/22/17 11:23 Dose: 200 mls/hr Vancomycin HCl 1.25 gm/ Sodium (Chloride) 250 mls @ 166.667 mls/hr IVPB BID@ 0900,2100 [facility] PRN Reason: Protocol Last Admin: 08/22/17 11:32 Dose: 166.667 mls/hr Ketorolac Tromethamine (Toradol) 15 mg IVP Q6 PRN PRN Reason: Pain, severe (8-10) Last Admin: 08/22/17 05:15 Dose: 15 mg Losartan Potassium (Cozaar) 50 mg PO DAILY [facility] Last Admin: 08/22/17 11:24 Dose: 50 mg Nicotine (Nicoderm Cq) 1 patch TD DAILY [facility] Last Admin: 08/22/17 11:25 Dose: 1 patch Ticagrelor (Brilinta) 90 mg PO BID [facility] Last Admin: 08/19/17 17:15 Dose: 90 mg Tramadol HCl (Ultram) 100 mg PO Q6 PRN PRN Reason: Pain, severe (8-10) Last Admin: 08/22/17 14:22 Dose: 100 mg - Labs Labs: 08/22/17 06:30 08/22/17 06:30 PT 13.0 Seconds (9.8-13.1) 08/16/17 08:10 INR 1.2 (0.9-1.2) 08/16/17 08:10 APTT 40.1 Seconds (25.6-37.1) H 08/16/17 08:10 - Constitutional Appears: Well, No Acute Distress - ENT Exam ENT Exam: Mucous Membranes Moist - Respiratory Exam Respiratory Exam: Clear to Ausculation Bilateral, NORMAL BREATHING PATTERN - Cardiovascular Exam Cardiovascular Exam: REGULAR RHYTHM, +S1, +S2 - GI/Abdominal Exam GI & Abdominal Exam: Soft, Normal Bowel Sounds - Extremities Exam Additional comments: right foot wrapped, dry and clean - Neurological Exam Neurological Exam: Alert, Awake, Oriented x3 - Skin Skin Exam: Dry, Intact, Warm Assessment and Plan - Assessment and Plan (Free Text) Assessment: 61 y/o male s/POD #1 Right TMA amputation for gangrenous right 2nd and 3rd toes 1. Rt Foot 2nd/3rd toe gangrene: -s/p right transmetatarsal amputation -s/p percutaneous transluminal angioplasty & atherectomy of 100% occluded SFA w / stenting of mid SFA and angioplasty w/ drug coated balloon of ostial SFA -CT Angiogram showed chronic SFA occlusion, calcified plaque popliteal artery, moderate stenosis; occluded anterior tibial artery, calcified tibioperoneal artery w/ moderate stenosis -R. foot x-ray: soft tissue swelling, osseous abnormality noted in the distal aspect of the forefoot -Cultures + Pseudomonas Aeruginosa; ID on board- continue w/ Cipro and Vanco. Vanco trough: 7.8 on 08/19 -Foot is dressed, clean and dry -Podiatry following, appreciate recs -Tramadol to 100mg PO Q6 PRN -Toradol 15mg IVP Q6 PRN 2. Thrombocytosis -likely reactive -currently being followed by heme onc, will follow up w/ recs 3. Leukocytosis -cultures + for P. aeruginosa -WBC 15.1 -ID is following; appreciate recs 4. HTN: -chronic, asymptomatic, controlled -d/c Norvasc -Coreg 25mg PO BID and Losartan 50mg PO QD 5. HLD -c/w atorvastatin 40mg PO QD 6. Prediabetes -Diet control 7. Diet -Heart healthy 9.DVT Prophylaxis: -Brillinta 90mg BID -Lovenox 40mg SC
--- NOTE | 2017-08-22 15:11 | CP.PCM.PN ---
Subjective - Date & Time of Evaluation Date of Evaluation: 08/22/17 Time of Evaluation: 15:07 - Subjective Subjective: Podiatry progress note for attending Dr. Pham, 61 y/o male patient 1 day S/P right TMA seen and evaluated at bedside. Patient was resting comfortably and in no acute distress. Patient denies any pain at the surgical site. Patient's dressing was dry clean and intact. Patient Denies any over night acute events. Patient denies any F/N/V/C or SOB. Patient denies any other pedal complaint Objective - Vital Signs/Intake and Output Vital Signs (last 24 hours): Temp Pulse Resp BP Pulse Ox 98.3 F 79 19 127/69 100 08/22/17 08:02 08/22/17 11:24 08/22/17 08:02 08/22/17 11:24 08/22/17 08:02 - Medications Medications: Current Medications Acetaminophen (Tylenol 325mg Tab) 650 mg PO Q6 PRN PRN Reason: Pain, Mild (1-3) Last Admin: 08/15/17 21:49 Dose: 650 mg Aspirin (Aspirin Chewable) 81 mg PO DAILY [facility] Last Admin: 08/22/17 11:23 Dose: 81 mg Atorvastatin Calcium (Lipitor) 40 mg PO DAILY@2100 [facility] Last Admin: 08/21/17 21:16 Dose: 40 mg Carvedilol (Coreg) 25 mg PO Q12 [facility] Last Admin: 08/22/17 11:24 Dose: 25 mg Enoxaparin Sodium (Lovenox) 40 mg SC HS [facility] PRN Reason: Protocol Last Admin: 08/19/17 22:00 Dose: 40 mg Hydrochlorothiazide (Hydrodiuril) 25 mg PO DAILY [facility] Last Admin: 08/22/17 11:25 Dose: 25 mg Ciprofloxacin (Cipro 400mg/200ml Dsw) 400 mg in 200 mls @ 200 mls/hr IVPB Q12 [facility] PRN Reason: Protocol Last Admin: 08/22/17 11:23 Dose: 200 mls/hr Vancomycin HCl 1.25 gm/ Sodium (Chloride) 250 mls @ 166.667 mls/hr IVPB BID@ 0900,2100 [facility] PRN Reason: Protocol Last Admin: 08/22/17 11:32 Dose: 166.667 mls/hr Ketorolac Tromethamine (Toradol) 15 mg IVP Q6 PRN PRN Reason: Pain, severe (8-10) Last Admin: 08/22/17 05:15 Dose: 15 mg Losartan Potassium (Cozaar) 50 mg PO DAILY [facility] Last Admin: 08/22/17 11:24 Dose: 50 mg Nicotine (Nicoderm Cq) 1 patch TD DAILY [facility] Last Admin: 08/22/17 11:25 Dose: 1 patch Ticagrelor (Brilinta) 90 mg PO BID [facility] Last Admin: 08/19/17 17:15 Dose: 90 mg Tramadol HCl (Ultram) 100 mg PO Q6 PRN PRN Reason: Pain, severe (8-10) Last Admin: 08/22/17 14:22 Dose: 100 mg - Labs Labs: 08/22/17 06:30 08/22/17 06:30 PT 13.0 Seconds (9.8-13.1) 08/16/17 08:10 INR 1.2 (0.9-1.2) 08/16/17 08:10 APTT 40.1 Seconds (25.6-37.1) H 08/16/17 08:10 - Constitutional Appears: Well, Non-toxic, No Acute Distress - Head Exam Head Exam: ATRAUMATIC, NORMOCEPHALIC - Extremities Exam Additional comments: Right Lower Extremity focused exam: Vasc: DP/PT pulses are Non palpable, Temp gradient warm to cool from proximal to distal, no edema or erythema noted. Neuro: Grossly diminished to entire forefoot. Derm: SIte of the TMA wound looks Dry, Clean, No signs of active bacterial infection. Sutures intact, No signs of wound dehesience. No malordour or drainage. MSK: Muscle power 4/5 in all muscle groups on the R side and 5/5 in all muscle groups of the L side. Patient unable to bend any digits of right foot - Neurological Exam Neurological Exam: Alert, Awake, Oriented x3 - Psychiatric Exam Psychiatric exam: Normal Affect, Normal Mood Assessment and Plan - Assessment and Plan (Free Text) Assessment: 61 y/o male patient 1 day S/P right TMA amputation Plan: Patient evaluated at bedside Plan discussed with Dr. Pham Chart, labs and vitals reviewed- afebrile, WBC 15.1 Culture results: Pseudomonas Aeruginosa Continue IV Antibiotics- cipro and vanc Foot dressed with betadine, DSD, adaptic and ABD
[2017-08-22] MEDS: Enoxaparin 40 mg Syringe SC SCH (22:17)
[2017-08-23 07:48] LABS: HEMOGLOBIN 11.1 g/dL (12.0-18.0); MEAN CELL VOLUME 93.9 fl (80.0-94.0); MEAN CORPUSCULAR HEMOGLOBIN 32.2 pg (27.0-31.0); MEAN CORPUSCULAR HGB CONC 34.3 g/dL (33.0-37.0); RBC 3.45 Mil/uL (4.40-5.90); RED CELL DISTRIBUTION WIDTH 13.4 % (11.5-14.5); WHITE BLOOD COUNT 16.4 K/uL (4.8-10.8)
[2017-08-23 08:32] LABS: ALBUMIN 3.4 g/dL (3.5-5.0); ALT/SGPT 32 U/L (21-72); AST/SGOT 30 U/L (17-59); BLOOD UREA NITROGEN 11 mg/dl (9-20); CALCIUM 9.2 mg/dL (8.4-10.2); GFR AFRICAN-AMERICAN > 60; GFR NON-AFRICAN AMERICAN > 60
--- NOTE | 2017-08-23 09:46 | CP.PCM.PN ---
Subjective - Date & Time of Evaluation Date of Evaluation: 08/23/17 Time of Evaluation: 08:25 - Subjective Subjective: 61 y/o male s/p #1 right TMA amputation for gangrenous right 2nd and 3rd toes. Patient seen and examined, NAD, C/o pain to the surgical area 04/25, but states pain is better compared to yesterday, states last time he took pain medication around 1:40 AM, denies chest pain, palpitations, ELK[place], N/V/D. Objective - Vital Signs/Intake and Output Vital Signs (last 24 hours): Temp Pulse Resp BP Pulse Ox 98.8 F 92 H 19 117/69 98 08/23/17 07:50 08/23/17 07:50 08/23/17 07:50 08/23/17 07:50 08/23/17 07:50 - Medications Medications: Current Medications Acetaminophen (Tylenol 325mg Tab) 650 mg PO Q6 PRN PRN Reason: Pain, Mild (1-3) Last Admin: 08/15/17 21:49 Dose: 650 mg Aspirin (Aspirin Chewable) 81 mg PO DAILY [facility] Last Admin: 08/22/17 11:23 Dose: 81 mg Atorvastatin Calcium (Lipitor) 40 mg PO DAILY@2100 [facility] Last Admin: 08/22/17 21:04 Dose: 40 mg Carvedilol (Coreg) 25 mg PO Q12 [facility] Last Admin: 08/22/17 21:05 Dose: 25 mg Enoxaparin Sodium (Lovenox) 40 mg SC HS [facility] PRN Reason: Protocol Last Admin: 08/22/17 22:17 Dose: 40 mg Hydrochlorothiazide (Hydrodiuril) 25 mg PO DAILY [facility] Last Admin: 08/22/17 11:25 Dose: 25 mg Ciprofloxacin (Cipro 400mg/200ml Dsw) 400 mg in 200 mls @ 200 mls/hr IVPB Q12 [facility] PRN Reason: Protocol Last Admin: 08/22/17 21:00 Dose: 200 mls/hr Vancomycin HCl 1.25 gm/ Sodium (Chloride) 250 mls @ 166.667 mls/hr IVPB BID@ 0900,2100 [facility] PRN Reason: Protocol Last Admin: 08/22/17 22:15 Dose: 166.667 mls/hr Ketorolac Tromethamine (Toradol) 15 mg IVP Q6 PRN PRN Reason: Pain, severe (8-10) Last Admin: 08/22/17 05:15 Dose: 15 mg Losartan Potassium (Cozaar) 50 mg PO DAILY [facility] Last Admin: 08/22/17 11:24 Dose: 50 mg Nicotine (Nicoderm Cq) 1 patch TD DAILY [facility] Last Admin: 08/22/17 11:25 Dose: 1 patch Ticagrelor (Brilinta) 90 mg PO BID [facility] Last Admin: 08/22/17 16:18 Dose: 90 mg Tramadol HCl (Ultram) 100 mg PO Q6 PRN PRN Reason: Pain, severe (8-10) Last Admin: 08/23/17 01:45 Dose: 100 mg - Labs Labs: 08/23/17 05:30 08/23/17 05:30 PT 13.0 Seconds (9.8-13.1) 08/16/17 08:10 INR 1.2 (0.9-1.2) 08/16/17 08:10 APTT 40.1 Seconds (25.6-37.1) H 08/16/17 08:10 - Constitutional Appears: No Acute Distress - Head Exam Head Exam: ATRAUMATIC, NORMOCEPHALIC - Eye Exam Eye Exam: EOMI, PERRL - ENT Exam ENT Exam: Mucous Membranes Moist - Neck Exam Neck Exam: Full ROM - Respiratory Exam Respiratory Exam: Clear to Ausculation Bilateral - Cardiovascular Exam Cardiovascular Exam: REGULAR RHYTHM, +S1, +S2 - GI/Abdominal Exam GI & Abdominal Exam: Soft, Normal Bowel Sounds. absent: Tenderness - Extremities Exam Additional comments: LEft foot with dressing wrap in place, dressing is clean - Neurological Exam Neurological Exam: Alert, Awake, Oriented x3 - Psychiatric Exam Psychiatric exam: Normal Affect, Normal Mood - Skin Skin Exam: Normal Color, Warm Assessment and Plan - Assessment and Plan (Free Text) Assessment: 61 y/o male s/POD #1 Right TMA amputation for gangrenous right 2nd and 3rd toes. VS, chart and nursing notes reviewed today. Plan: 1. Rt Foot 2nd/3rd toe gangrene: -s/p right transmetatarsal amputation -s/p percutaneous transluminal angioplasty & atherectomy of 100% occluded SFA w / stenting of mid SFA and angioplasty w/ drug coated balloon of ostial SFA -CT Angiogram showed chronic SFA occlusion, calcified plaque popliteal artery, moderate stenosis; occluded anterior tibial artery, calcified tibioperoneal artery w/ moderate stenosis -R. foot x-ray: soft tissue swelling, osseous abnormality noted in the distal aspect of the forefoot -Cultures + Pseudomonas Aeruginosa; ID on board- continue w/ Cipro and Vanco, last Vanco trougt 7.8 -Foot is dressed, clean and dry -Podiatry f/u on board -Tramadol to 100mg PO Q6 PRN -Toradol 15mg IVP Q6 PRN 2. Thrombocytosis -likely reactive -currently being followed by heme onc, will f/u recommendations -plt [id number] 3. Leukocytosis -cultures + for P. aeruginosa -WBC 16.4 -Vancomycin 1.5G q12h IV -trough level with 3rd dose -ID consult on board 4. HTN: -chronic, asymptomatic, controlled -Coreg 25mg PO BID, HTZ 25 po qd, and Losartan 50mg PO QD 5. HLD -c/w atorvastatin 40mg PO QD 6. Prediabetes -Diet control 7. Diet -Heart healthy 9.DVT Prophylaxis: -Brillinta 90mg BID -Lovenox 40mg SC
[2017-08-23] MEDS: Ciprofloxacin 400mg/200ml D5W 400 MG/200 ML BAG IVPB SCH ×2 (09:54→20:21)
[2017-08-23] MEDS: Vancomycin 1.5 GM in Sodium Chloride 0.9% 500 ML IVPB SCH (21:30)
[2017-08-23] MEDS: Enoxaparin 40 mg Syringe SC SCH ×2 (22:32→22:36)
[2017-08-24 06:16] LABS: HEMOGLOBIN 11.1 g/dL (12.0-18.0); MEAN CELL VOLUME 92.7 fl (80.0-94.0); MEAN CORPUSCULAR HEMOGLOBIN 32.2 pg (27.0-31.0); MEAN CORPUSCULAR HGB CONC 34.7 g/dL (33.0-37.0); RBC 3.45 Mil/uL (4.40-5.90); RED CELL DISTRIBUTION WIDTH 12.9 % (11.5-14.5); WHITE BLOOD COUNT 15.8 K/uL (4.8-10.8)
[2017-08-24 06:21] LABS: BLOOD UREA NITROGEN 12 mg/dl (9-20); GFR AFRICAN-AMERICAN > 60; GFR NON-AFRICAN AMERICAN > 60
[2017-08-24 06:22] LABS: ALBUMIN 3.3 g/dL (3.5-5.0); ALT/SGPT 30 U/L (21-72); AST/SGOT 37 U/L (17-59); CALCIUM 9.1 mg/dL (8.4-10.2)
[2017-08-24] MEDS: Ciprofloxacin 400mg/200ml D5W 400 MG/200 ML BAG IVPB SCH (09:10)
[2017-08-24] MEDS: Vancomycin 1.5 GM in Sodium Chloride 0.9% 500 ML IVPB SCH ×2 (09:17→21:58)
--- NOTE | 2017-08-24 10:02 | CP.PCM.PN ---
Subjective - Date & Time of Evaluation Date of Evaluation: 08/24/17 Time of Evaluation: 09:57 - Subjective Subjective: Pt had amputation of 3 toes from his left foot last week. His pain is better, His platelet count has gradually gone up to 737K. He is already on lovenox and we can wait to start hydroxyurea unless the platelet count is more than 800K Objective - Vital Signs/Intake and Output Vital Signs (last 24 hours): Temp Pulse Resp BP Pulse Ox 98.6 F 85 20 156/75 H 100 08/24/17 08:45 08/24/17 09:09 08/24/17 08:45 08/24/17 09:09 08/24/17 08:45 - Medications Medications: Current Medications Acetaminophen (Tylenol 325mg Tab) 650 mg PO Q6 PRN PRN Reason: Pain, Mild (1-3) Last Admin: 08/15/17 21:49 Dose: 650 mg Aspirin (Aspirin Chewable) 81 mg PO DAILY [facility] Last Admin: 08/24/17 09:09 Dose: 81 mg Atorvastatin Calcium (Lipitor) 40 mg PO DAILY@2100 [facility] Last Admin: 08/23/17 21:35 Dose: 40 mg Carvedilol (Coreg) 25 mg PO Q12 [facility] Last Admin: 08/24/17 09:09 Dose: 25 mg Enoxaparin Sodium (Lovenox) 40 mg SC HS [facility] PRN Reason: Protocol Last Admin: 08/23/17 22:36 Dose: 40 mg Hydrochlorothiazide (Hydrodiuril) 25 mg PO DAILY [facility] Last Admin: 08/24/17 09:08 Dose: 25 mg Ciprofloxacin (Cipro 400mg/200ml Dsw) 400 mg in 200 mls @ 200 mls/hr IVPB Q12 [facility] PRN Reason: Protocol Last Admin: 08/24/17 09:10 Dose: 200 mls/hr Vancomycin HCl 1.5 gm/ Sodium (Chloride) 500 mls @ 333.333 mls/hr IVPB BID@0900 ,2100 [facility] PRN Reason: Protocol Last Admin: 08/24/17 09:17 Dose: 333.333 mls/hr Ketorolac Tromethamine (Toradol) 15 mg IVP Q6 PRN PRN Reason: Pain, severe (8-10) Last Admin: 08/22/17 05:15 Dose: 15 mg Losartan Potassium (Cozaar) 50 mg PO DAILY [facility] Last Admin: 08/24/17 09:09 Dose: 50 mg Nicotine (Nicoderm Cq) 1 patch TD DAILY [facility] Last Admin: 08/24/17 09:08 Dose: 1 patch Ticagrelor (Brilinta) 90 mg PO BID [facility] Last Admin: 08/24/17 09:08 Dose: 90 mg Tramadol HCl (Ultram) 100 mg PO Q6 PRN PRN Reason: Pain, severe (8-10) Last Admin: 08/24/17 09:16 Dose: 100 mg - Labs Labs: 08/24/17 06:02 08/24/17 06:02 PT 13.0 Seconds (9.8-13.1) 08/16/17 08:10 INR 1.2 (0.9-1.2) 08/16/17 08:10 APTT 40.1 Seconds (25.6-37.1) H 08/16/17 08:10
--- NOTE | 2017-08-24 11:31 | CARD ---
APPROVED REPORT EKG Measurement Heart [id number] NM [id number] <Conclusion> Normal sinus rhythm Possible Left atrial enlargement Left ventricular hypertrophy Inferior infarct, age undetermined Anteroseptal infarct, age undetermined Abnormal ECG
--- NOTE | 2017-08-24 12:32 | CP.PCM.PN ---
Subjective - Date & Time of Evaluation Date of Evaluation: 08/24/17 Time of Evaluation: 12:30 - Subjective Subjective: 61 y/o male s/pod #3 right TMA amputation for gangrenous right 2nd and 3rd toes. Patient is seen and examined at bedside. Pain improving. Denies fatigue, nausea , and dizziness. Objective - Vital Signs/Intake and Output Vital Signs (last 24 hours): Temp Pulse Resp BP Pulse Ox 98.6 F 85 20 156/75 H 100 08/24/17 08:45 08/24/17 09:09 08/24/17 08:45 08/24/17 09:09 08/24/17 08:45 - Medications Medications: Current Medications Acetaminophen (Tylenol 325mg Tab) 650 mg PO Q6 PRN PRN Reason: Pain, Mild (1-3) Last Admin: 08/15/17 21:49 Dose: 650 mg Aspirin (Aspirin Chewable) 81 mg PO DAILY [facility] Last Admin: 08/24/17 09:09 Dose: 81 mg Atorvastatin Calcium (Lipitor) 40 mg PO DAILY@2100 [facility] Last Admin: 08/23/17 21:35 Dose: 40 mg Carvedilol (Coreg) 25 mg PO Q12 [facility] Last Admin: 08/24/17 09:09 Dose: 25 mg Enoxaparin Sodium (Lovenox) 40 mg SC HS [facility] PRN Reason: Protocol Last Admin: 08/23/17 22:36 Dose: 40 mg Hydrochlorothiazide (Hydrodiuril) 25 mg PO DAILY [facility] Last Admin: 08/24/17 09:08 Dose: 25 mg Ciprofloxacin (Cipro 400mg/200ml Dsw) 400 mg in 200 mls @ 200 mls/hr IVPB Q12 [facility] PRN Reason: Protocol Last Admin: 08/24/17 09:10 Dose: 200 mls/hr Vancomycin HCl 1.5 gm/ Sodium (Chloride) 500 mls @ 333.333 mls/hr IVPB BID@0900 ,2100 [facility] PRN Reason: Protocol Last Admin: 08/24/17 09:17 Dose: 333.333 mls/hr Ketorolac Tromethamine (Toradol) 15 mg IVP Q6 PRN PRN Reason: Pain, severe (8-10) Last Admin: 08/22/17 05:15 Dose: 15 mg Losartan Potassium (Cozaar) 50 mg PO DAILY [facility] Last Admin: 08/24/17 09:09 Dose: 50 mg Nicotine (Nicoderm Cq) 1 patch TD DAILY [facility] Last Admin: 08/24/17 09:08 Dose: 1 patch Ticagrelor (Brilinta) 90 mg PO BID [facility] Last Admin: 08/24/17 09:08 Dose: 90 mg Tramadol HCl (Ultram) 100 mg PO Q6 PRN PRN Reason: Pain, severe (8-10) Last Admin: 08/24/17 09:16 Dose: 100 mg - Labs Labs: 08/24/17 06:02 08/24/17 06:02 PT 13.0 Seconds (9.8-13.1) 08/16/17 08:10 INR 1.2 (0.9-1.2) 08/16/17 08:10 APTT 40.1 Seconds (25.6-37.1) H 08/16/17 08:10 - Constitutional Appears: Well, No Acute Distress - ENT Exam ENT Exam: Mucous Membranes Moist - Respiratory Exam Respiratory Exam: Clear to Ausculation Bilateral, NORMAL BREATHING PATTERN - Cardiovascular Exam Cardiovascular Exam: REGULAR RHYTHM, +S1, +S2 - GI/Abdominal Exam GI & Abdominal Exam: Soft, Normal Bowel Sounds. absent: Tenderness - Extremities Exam Additional comments: right foot bandaged, clean and dry - Neurological Exam Neurological Exam: Alert, Awake, Oriented x3 - Psychiatric Exam Psychiatric exam: Normal Affect - Skin Skin Exam: Dry, Intact, Warm Assessment and Plan - Assessment and Plan (Free Text) Assessment: 61 y/o male s/POD #3 Right TMA amputation for gangrenous right 2nd and 3rd toes. Patient, chart, labs, and notes reviewed. Plan: 1. Rt Foot 2nd/3rd toe gangrene: -s/p right transmetatarsal amputation -s/p percutaneous transluminal angioplasty & atherectomy of 100% occluded SFA w / stenting of mid SFA and angioplasty w/ drug coated balloon of ostial SFA -CT Angiogram showed chronic SFA occlusion, calcified plaque popliteal artery, moderate stenosis; occluded anterior tibial artery, calcified tibioperoneal artery w/ moderate stenosis -R. foot x-ray: soft tissue swelling, osseous abnormality noted in the distal aspect of the forefoot -Cultures + Pseudomonas Aeruginosa; ID on board- continue w/ Cipro and Vanco, last Vanco trougt 7.8 -Foot is dressed, clean and dry -Podiatry f/u on board -Tramadol to 100mg PO Q6 PRN -Toradol 15mg IVP Q6 PRN -PT following 2.Hyponatremia -possibly 2/2 to SIADH vs. HCTZ -Na+ stable in the low 130s -Urine Na+, electrolytes and osmolality ordered -will monitor 3. Thrombocytosis -likely reactive -currently being followed by heme onc, will f/u recommendations -WBC 737 today. Per GI, hydroxyurea if >800 4. Leukocytosis -cultures + for P. aeruginosa -WBC 15.8 -Vancomycin 1.5G q12h IV -trough level with 3rd dose -ID consult on board 5. HTN: -chronic, asymptomatic, controlled -Coreg 25mg PO BID, HTZ 25 po qd, and Losartan 50mg PO QD 6. HLD -c/w atorvastatin 40mg PO QD 7. Prediabetes -Diet control 8. Diet -Heart healthy 9.DVT Prophylaxis: -Brillinta 90mg BID -Lovenox 40mg SC 10. Code status -full code.
[2017-08-24 17:14] LABS: GRANULAR CAST 1 /lpf (0-1); SQUAMOUS EPITHIAL < 1 /hpf (0-5); URINE BILIRUBIN NEGATIVE (NEGATIVE); URINE BLOOD NEGATIVE (NEGATIVE); URINE CLARITY SLIGHTY-CLOUDY (Clear); URINE COLOR YELLOW (YELLOW); URINE GLUCOSE (UA) 50 mg/dL (Normal); URINE LEUKOCYTE ESTERASE NEG Leu/uL (Negative); URINE PROTEIN NEGATIVE (NEGATIVE)
--- NOTE | 2017-08-24 17:31 | CP.PCM.PN ---
Subjective - Date & Time of Evaluation Date of Evaluation: 08/24/17 Time of Evaluation: 17:26 - Subjective Subjective: I D NOTE HAVE BEEN AWAY x 5 DAYS REVIEWED CASE c WHO FEELS RESULTS ARE REACTIVE Will DC CIPRO AND START [facility]IPEME Objective - Vital Signs/Intake and Output Vital Signs (last 24 hours): Temp Pulse Resp BP Pulse Ox 97.9 F 84 18 134/72 100 08/24/17 16:21 08/24/17 16:21 08/24/17 16:21 08/24/17 16:21 08/24/17 16:21 - Medications Medications: Current Medications Acetaminophen (Tylenol 325mg Tab) 650 mg PO Q6 PRN PRN Reason: Pain, Mild (1-3) Last Admin: 08/15/17 21:49 Dose: 650 mg Aspirin (Aspirin Chewable) 81 mg PO DAILY [facility] Last Admin: 08/24/17 09:09 Dose: 81 mg Atorvastatin Calcium (Lipitor) 40 mg PO DAILY@2100 [facility] Last Admin: 08/23/17 21:35 Dose: 40 mg Carvedilol (Coreg) 25 mg PO Q12 [facility] Last Admin: 08/24/17 09:09 Dose: 25 mg Enoxaparin Sodium (Lovenox) 40 mg SC HS [facility] PRN Reason: Protocol Last Admin: 08/23/17 22:36 Dose: 40 mg Hydrochlorothiazide (Hydrodiuril) 25 mg PO DAILY [facility] Last Admin: 08/24/17 09:08 Dose: 25 mg Vancomycin HCl 1.5 gm/ Sodium (Chloride) 500 mls @ 333.333 mls/hr IVPB BID@0900 ,2100 [facility] PRN Reason: Protocol Last Admin: 08/24/17 09:17 Dose: 333.333 mls/hr Cefepime HCl 1 gm/ Sodium (Chloride) 100 mls @ 100 mls/hr IVPB Q12 [facility] PRN Reason: Protocol Ketorolac Tromethamine (Toradol) 15 mg IVP Q6 PRN PRN Reason: Pain, severe (8-10) Last Admin: 08/22/17 05:15 Dose: 15 mg Losartan Potassium (Cozaar) 50 mg PO DAILY [facility] Last Admin: 08/24/17 09:09 Dose: 50 mg Nicotine (Nicoderm Cq) 1 patch TD DAILY [facility] Last Admin: 08/24/17 09:08 Dose: 1 patch Ticagrelor (Brilinta) 90 mg PO BID [facility] Last Admin: 08/24/17 09:08 Dose: 90 mg Tramadol HCl (Ultram) 100 mg PO Q6 PRN PRN Reason: Pain, severe (8-10) Last Admin: 08/24/17 09:16 Dose: 100 mg - Labs Labs: 08/24/17 06:02 08/24/17 06:02 PT 13.0 Seconds (9.8-13.1) 08/16/17 08:10 INR 1.2 (0.9-1.2) 08/16/17 08:10 APTT 40.1 Seconds (25.6-37.1) H 08/16/17 08:10
--- NOTE | 2017-08-24 17:46 | CP.PCM.PN ---
Subjective - Date & Time of Evaluation Date of Evaluation: 08/24/17 Time of Evaluation: 17:43 - Subjective Subjective: Podiatry progress note for attending Dr. Pham, 61 y/o male patient 3 days S/P right TMA seen and evaluated at bedside. Patient was resting comfortably and in no acute distress. Patient denies any pain at the surgical site. Patient's dressing soaked with ser-sanguinous drainage and strike-through was noted. Patient Denies any over night acute events. Patient denies any F/N/V/C or SOB. Patient denies any other pedal complaint Objective - Vital Signs/Intake and Output Vital Signs (last 24 hours): Temp Pulse Resp BP Pulse Ox 97.9 F 84 18 134/72 100 08/24/17 16:21 08/24/17 16:21 08/24/17 16:21 08/24/17 16:21 08/24/17 16:21 - Medications Medications: Current Medications Acetaminophen (Tylenol 325mg Tab) 650 mg PO Q6 PRN PRN Reason: Pain, Mild (1-3) Last Admin: 08/15/17 21:49 Dose: 650 mg Aspirin (Aspirin Chewable) 81 mg PO DAILY [facility] Last Admin: 08/24/17 09:09 Dose: 81 mg Atorvastatin Calcium (Lipitor) 40 mg PO DAILY@2100 [facility] Last Admin: 08/23/17 21:35 Dose: 40 mg Carvedilol (Coreg) 25 mg PO Q12 [facility] Last Admin: 08/24/17 09:09 Dose: 25 mg Enoxaparin Sodium (Lovenox) 40 mg SC HS [facility] PRN Reason: Protocol Last Admin: 08/23/17 22:36 Dose: 40 mg Hydrochlorothiazide (Hydrodiuril) 25 mg PO DAILY [facility] Last Admin: 08/24/17 09:08 Dose: 25 mg Vancomycin HCl 1.5 gm/ Sodium (Chloride) 500 mls @ 333.333 mls/hr IVPB BID@0900 ,2100 [facility] PRN Reason: Protocol Last Admin: 08/24/17 09:17 Dose: 333.333 mls/hr Cefepime HCl 1 gm/ Sodium (Chloride) 100 mls @ 100 mls/hr IVPB Q12 [facility] PRN Reason: Protocol Ketorolac Tromethamine (Toradol) 15 mg IVP Q6 PRN PRN Reason: Pain, severe (8-10) Last Admin: 08/22/17 05:15 Dose: 15 mg Losartan Potassium (Cozaar) 50 mg PO DAILY [facility] Last Admin: 08/24/17 09:09 Dose: 50 mg Nicotine (Nicoderm Cq) 1 patch TD DAILY [facility] Last Admin: 08/24/17 09:08 Dose: 1 patch Ticagrelor (Brilinta) 90 mg PO BID [facility] Last Admin: 08/24/17 09:08 Dose: 90 mg Tramadol HCl (Ultram) 100 mg PO Q6 PRN PRN Reason: Pain, severe (8-10) Last Admin: 08/24/17 09:16 Dose: 100 mg - Labs Labs: 08/24/17 06:02 08/24/17 06:02 PT 13.0 Seconds (9.8-13.1) 08/16/17 08:10 INR 1.2 (0.9-1.2) 08/16/17 08:10 APTT 40.1 Seconds (25.6-37.1) H 08/16/17 08:10 - Constitutional Appears: Well, Non-toxic, No Acute Distress - Head Exam Head Exam: ATRAUMATIC, NORMOCEPHALIC - Extremities Exam Extremities Exam: Tenderness Additional comments: Right Lower Extremity focused exam: Vasc: DP and PT pulses are Non palpable, Temp gradient warm to cool from proximal to distal, no edema or erythema noted. Neuro: Grossly diminished to entire forefoot. Derm: TMA site looks Dry, Clean, No signs of clinical infection. Sutures intact , No signs of wound dehiscence. No malodor or drainage. MSK: Muscle power 4/5 in all muscle groups on the R side and 5/5 in all muscle groups of the L side - Neurological Exam Neurological Exam: Alert, Awake, Oriented x3 - Psychiatric Exam Psychiatric exam: Normal Affect, Normal Mood Assessment and Plan - Assessment and Plan (Free Text) Assessment: 61 y/o male patient 3 day S/P right TMA amputation Plan: Patient seen and evaluated at bedside Patient Plan discussed with Dr. Pham Chart, labs and vitals reviewed- afebrile, WBC 15.8 Culture results: Pseudomonas Aeruginosa Post X-rays: interval TMA with adjacent post-surgical changes Patient stable to be discharged as per Podiatry Patient will follow-up in the Podiatry clinic with Dr. Pham Patient wound dressed with betadine, adaptic, DSD
--- NOTE | 2017-08-24 21:02 | OP ---
PROCEDURE DATE: 08/21/2017 PREOPERATIVE DIAGNOSIS: Right foot gangrene. POSTOPERATIVE DIAGNOSIS: Right foot gangrene. PROCEDURE PERFORMED: Right foot transmetatarsal amputation. SURGEON: Dandre Pham DPM TILE SORTER: Dalila Haynes DPM, PGY-3; Juni Delgadillo DPM, PGY-2; and Faizan Ceballos DPM, PGY1. TYPE OF ANESTHESIA: MAC IV sedation with local injection. ANESTHESIA ADMINISTERED BY: Dr. Li. INDICATIONS: The patient is a 61-year-old male with above-mentioned diagnosis. The patient is being treated by Dr. Pham. The patient seeks surgical intervention at this time. All risks, benefits, and possible complications to the proposed procedure have been explained to the patient at length. The patient verbalizes understanding and wished to proceed. All questions were answered. No guarantees were given nor implied. Consent was signed and n.p.o. status was confirmed prior to bringing the patient to the operating room. DESCRIPTION OF PROCEDURE: The patient was brought into the operating room and placed on the operating room table in a supine position. No pneumatic ankle tourniquet or hemostasis was used. Once IV sedation was achieved, a local injection consisting of 20 mL of 0.5% Marcaine plain was given in a local block fashion to the patient's right foot. Once local anesthesia was achieved, the right foot was then prepped and draped in a usual sterile manner and the procedure began. PROCEDURE: Right foot transmetatarsal amputation. Attention was directed to the right foot where a dry gangrene was noted over the second and third digits with an open wound noted to the dorsal aspect of the foot. Using a #15 blade, a fish-mouth incision was created circumferentially around the midfoot with the plantar incision made distally to create a plantar flap. Next, the distal aspect of the foot was disarticulated at the metatarsal head and passed off the field and sent for pathology. Next, utilizing a pickup and a #15 blade, a flap was made around the metatarsals. Next, utilizing a sagittal saw, the metatarsals were resected at the level of the midshaft following the parabola. All revitalized bone and tissues were then passed off the field and sent to pathology. The remaining sharp bones were then smoothed down utilizing the saw. The area was then irrigated with copious amount of normal sterile saline. A plantar tissue was then brought up dorsally to cover the distal aspect of the metatarsal head. The deep tissue was then reapproximated with #2-0 and 4-0 Vicryl, and the skin was reapproximated with #3-0 nylon. The postoperative injection consisting of 10 mL of 0.25% Marcaine plain was given in a local block fashion. Postoperative dressings included Betadine, self-adaptive, 4 x 4s, ABD, Kerlix, and Juan Daniel. POSTOPERATIVE CONDITION: The patient tolerated the anesthesia and procedure well with no apparent complications or complaints. The patient was escorted from the recovery room to the PACU with vital signs stable and neurovascular structures intact. Podiatry will continue to follow the patient while inhouse. Dalila Haynes DPM Dandre Pham DPM DK
[2017-08-24] MEDS: Enoxaparin 40 mg Syringe SC SCH (22:02)
[2017-08-24] MEDS: Cefepime 1 GM in Sodium Chloride 0.9% 100 ML IVPB SCH (22:02)
[2017-08-25 06:19] LABS: HEMOGLOBIN 11.4 g/dL (12.0-18.0); MEAN CORPUSCULAR HEMOGLOBIN 31.2 pg (27.0-31.0); MEAN CORPUSCULAR HGB CONC 33.6 g/dL (33.0-37.0); RBC 3.65 Mil/uL (4.40-5.90); RED CELL DISTRIBUTION WIDTH 13.2 % (11.5-14.5); WHITE BLOOD COUNT 11.3 K/uL (4.8-10.8)
[2017-08-25 06:30] LABS: ALB/GLOB RATIO 0.9 (1.0-2.1); ALBUMIN 3.3 g/dL (3.5-5.0); ALT/SGPT 31 U/L (21-72); AST/SGOT 43 U/L (17-59); BLOOD UREA NITROGEN 11 mg/dl (9-20); CALCIUM 9.2 mg/dL (8.4-10.2); GFR AFRICAN-AMERICAN > 60; GFR NON-AFRICAN AMERICAN > 60
[2017-08-25] MEDS: Cefepime 1 GM in Sodium Chloride 0.9% 100 ML IVPB SCH ×2 (09:27→21:16)
--- NOTE | 2017-08-25 09:53 | CP.PCM.PN ---
Subjective - Date & Time of Evaluation Date of Evaluation: 08/25/17 Time of Evaluation: 09:50 - Subjective Subjective: Podiatry progress note for attending Dr. Pham, 61 y/o male patient 4 days S/P right TMA seen and evaluated at bedside. Patient was resting comfortably and in no acute distress. Patient denies any pain at the surgical site. Patient's dressing soaked with sero-sanguinous drainage and strike-through was noted, otherwise intact. Patient Denies any over night acute events. Patient denies any F/N/V/C or SOB. Patient denies any other pedal complaint Objective - Vital Signs/Intake and Output Vital Signs (last 24 hours): Temp Pulse Resp BP Pulse Ox 98.2 F 82 20 123/70 100 08/25/17 08:16 08/25/17 09:33 08/25/17 08:16 08/25/17 09:33 08/25/17 08:16 - Medications Medications: Current Medications Acetaminophen (Tylenol 325mg Tab) 650 mg PO Q6 PRN PRN Reason: Pain, Mild (1-3) Last Admin: 08/15/17 21:49 Dose: 650 mg Aspirin (Aspirin Chewable) 81 mg PO DAILY [facility] Last Admin: 08/25/17 09:32 Dose: 81 mg Atorvastatin Calcium (Lipitor) 40 mg PO DAILY@2100 [facility] Last Admin: 08/24/17 22:02 Dose: 40 mg Carvedilol (Coreg) 25 mg PO Q12 [facility] Last Admin: 08/25/17 09:33 Dose: 25 mg Vancomycin HCl 1.5 gm/ Sodium (Chloride) 500 mls @ 333.333 mls/hr IVPB BID@0900 ,2100 [facility] PRN Reason: Protocol Last Admin: 08/24/17 21:58 Dose: Not Given Cefepime HCl 1 gm/ Sodium (Chloride) 100 mls @ 100 mls/hr IVPB Q12 [facility] PRN Reason: Protocol Last Admin: 08/25/17 09:27 Dose: 100 mls/hr Ketorolac Tromethamine (Toradol) 15 mg IVP Q6 PRN PRN Reason: Pain, severe (8-10) Last Admin: 08/22/17 05:15 Dose: 15 mg Losartan Potassium (Cozaar) 50 mg PO DAILY [facility] Last Admin: 08/25/17 09:32 Dose: 50 mg Nicotine (Nicoderm Cq) 1 patch TD DAILY [facility] Last Admin: 08/25/17 09:33 Dose: 1 patch Ticagrelor (Brilinta) 90 mg PO BID [facility] Last Admin: 08/25/17 09:33 Dose: 90 mg Tramadol HCl (Ultram) 100 mg PO Q6 PRN PRN Reason: Pain, severe (8-10) Last Admin: 08/25/17 03:17 Dose: 100 mg - Labs Labs: 08/25/17 05:50 08/25/17 05:50 PT 13.0 Seconds (9.8-13.1) 08/16/17 08:10 INR 1.2 (0.9-1.2) 08/16/17 08:10 APTT 40.1 Seconds (25.6-37.1) H 08/16/17 08:10 - Constitutional Appears: Well, Non-toxic - Head Exam Head Exam: ATRAUMATIC, NORMOCEPHALIC - Extremities Exam Additional comments: Right Lower Extremity focused exam: Vasc: DP and PT pulse 1/4 noted, Temp gradient warm to cool from proximal to distal, no edema or erythema noted. Neuro: Grossly diminished Derm: minimal drainage noted at the TMA site, sutures intact, no signs of wound dehiscence, no clinical signs of infection MSK: pain on palpation at the TMA site, Muscle power 4/5 in all muscle groups on the R side and 5/5 in all muscle groups of the L side - Neurological Exam Neurological Exam: Alert, Awake, Oriented x3 - Psychiatric Exam Psychiatric exam: Normal Affect, Normal Mood - Skin Skin Exam: Normal Color Assessment and Plan - Assessment and Plan (Free Text) Assessment: 61 y/o male patient 4 day S/P right TMA amputation Plan: Patient seen and evaluated at bedside Patient Plan discussed with Dr. Pham Chart, labs and vitals reviewed- afebrile, WBC 11.3 Culture results: Pseudomonas Aeruginosa Patient wound dressed betadine, tefla, and DSD Patient sutures to be kept intact until patient follows up in Podiatry clinic Post X-rays: interval TMA with adjacent post-surgical changes Patient will follow-up in the Podiatry clinic with Dr. Pham Plan: patient stable for discharge from podiatry standpoint.
--- NOTE | 2017-08-25 10:32 | CP.PCM.PN ---
Subjective - Date & Time of Evaluation Date of Evaluation: 08/25/17 Time of Evaluation: 10:31 - Subjective Subjective: 61 y/o male s/pod #4 right TMA amputation for gangrenous right 2nd and 3rd toes. Patient is seen and examined at bedside. Pain improved. No complaints. Objective - Vital Signs/Intake and Output Vital Signs (last 24 hours): Temp Pulse Resp BP Pulse Ox 98.2 F 82 20 123/70 100 08/25/17 08:16 08/25/17 09:33 08/25/17 08:16 08/25/17 09:33 08/25/17 08:16 - Medications Medications: Current Medications Acetaminophen (Tylenol 325mg Tab) 650 mg PO Q6 PRN PRN Reason: Pain, Mild (1-3) Last Admin: 08/15/17 21:49 Dose: 650 mg Aspirin (Aspirin Chewable) 81 mg PO DAILY [facility] Last Admin: 08/25/17 09:32 Dose: 81 mg Atorvastatin Calcium (Lipitor) 40 mg PO DAILY@2100 [facility] Last Admin: 08/24/17 22:02 Dose: 40 mg Carvedilol (Coreg) 25 mg PO Q12 [facility] Last Admin: 08/25/17 09:33 Dose: 25 mg Vancomycin HCl 1.5 gm/ Sodium (Chloride) 500 mls @ 333.333 mls/hr IVPB BID@0900 ,2100 [facility] PRN Reason: Protocol Last Admin: 08/24/17 21:58 Dose: Not Given Cefepime HCl 1 gm/ Sodium (Chloride) 100 mls @ 100 mls/hr IVPB Q12 [facility] PRN Reason: Protocol Last Admin: 08/25/17 09:27 Dose: 100 mls/hr Ketorolac Tromethamine (Toradol) 15 mg IVP Q6 PRN PRN Reason: Pain, severe (8-10) Last Admin: 08/22/17 05:15 Dose: 15 mg Losartan Potassium (Cozaar) 50 mg PO DAILY [facility] Last Admin: 08/25/17 09:32 Dose: 50 mg Nicotine (Nicoderm Cq) 1 patch TD DAILY [facility] Last Admin: 08/25/17 09:33 Dose: 1 patch Ticagrelor (Brilinta) 90 mg PO BID [facility] Last Admin: 08/25/17 09:33 Dose: 90 mg Tramadol HCl (Ultram) 100 mg PO Q6 PRN PRN Reason: Pain, severe (8-10) Last Admin: 08/25/17 03:17 Dose: 100 mg - Labs Labs: 08/25/17 05:50 08/25/17 05:50 PT 13.0 Seconds (9.8-13.1) 08/16/17 08:10 INR 1.2 (0.9-1.2) 08/16/17 08:10 APTT 40.1 Seconds (25.6-37.1) H 08/16/17 08:10 - Constitutional Appears: Well, No Acute Distress - ENT Exam ENT Exam: Mucous Membranes Moist - Respiratory Exam Respiratory Exam: Clear to Ausculation Bilateral, NORMAL BREATHING PATTERN - Cardiovascular Exam Cardiovascular Exam: REGULAR RHYTHM, +S1, +S2 - GI/Abdominal Exam GI & Abdominal Exam: Soft, Normal Bowel Sounds. absent: Tenderness - Extremities Exam Additional comments: Right food bandaged, dry and clean - Neurological Exam Neurological Exam: Alert, Awake, Oriented x3 - Skin Skin Exam: Dry, Intact, Warm Assessment and Plan - Assessment and Plan (Free Text) Assessment: 61 y/o male s/POD #4 Right TMA amputation for gangrenous right 2nd and 3rd toes. Patient, chart, labs, and notes reviewed. Plan: 1. Rt Foot 2nd/3rd toe gangrene: -s/p right transmetatarsal amputation -s/p percutaneous transluminal angioplasty & atherectomy of 100% occluded SFA w / stenting of mid SFA and angioplasty w/ drug coated balloon of ostial SFA -CT Angiogram showed chronic SFA occlusion, calcified plaque popliteal artery, moderate stenosis; occluded anterior tibial artery, calcified tibioperoneal artery w/ moderate stenosis -R. foot x-ray: soft tissue swelling, osseous abnormality noted in the distal aspect of the forefoot -Cultures + Pseudomonas Aeruginosa; ID on board- continue w/ Cipro and Vanco, last Vanco trougt 7.8 -Foot is dressed, clean and dry -okay to d/c per podiatry and to f/u w/ Dr. Pham -Tramadol to 100mg PO Q6 PRN -Toradol 15mg IVP Q6 PRN -PT following 2.Hyponatremia -possibly 2/2 to SIADH vs. HCTZ -Na+ stable in the low 130s -Urine Na+ 111, Serum Osm 270, Urine Osm 494 -D/c HCTZ -will monitor 3. Thrombocytosis -likely reactive -currently being followed by heme onc, will f/u recommendations -WBC 777 today. Per GI, hydroxyurea if >800 4. Leukocytosis -cultures + for P. aeruginosa -WBC 11.3 -On Cefepime 1 gm 100 mL IV BID -Vancomycin d/c, trough 16.4 -ID consult on board 5. HTN: -chronic, asymptomatic, controlled -Coreg 25mg PO BID, and Losartan 50mg PO QD 6. HLD -c/w atorvastatin 40mg PO QD 7. Prediabetes -Diet control 8. Diet -Heart healthy 9.DVT Prophylaxis: -Brillinta 90mg BID -Lovenox 40mg SC 10. Code status -full code.
--- NOTE | 2017-08-25 17:40 | CP.PCM.PN ---
Subjective - Date & Time of Evaluation Date of Evaluation: 08/25/17 Time of Evaluation: 17:38 - Subjective Subjective: s/p revascularization and tma on dapt no complaints RLE edema Objective - Vital Signs/Intake and Output Vital Signs (last 24 hours): Temp Pulse Resp BP Pulse Ox 98.3 F 83 18 147/78 100 08/25/17 16:42 08/25/17 16:42 08/25/17 16:42 08/25/17 16:42 08/25/17 16:42 - Medications Medications: Current Medications Acetaminophen (Tylenol 325mg Tab) 650 mg PO Q6 PRN PRN Reason: Pain, Mild (1-3) Last Admin: 08/15/17 21:49 Dose: 650 mg Aspirin (Aspirin Chewable) 81 mg PO DAILY [facility] Last Admin: 08/25/17 09:32 Dose: 81 mg Atorvastatin Calcium (Lipitor) 40 mg PO DAILY@2100 [facility] Last Admin: 08/24/17 22:02 Dose: 40 mg Carvedilol (Coreg) 25 mg PO Q12 [facility] Last Admin: 08/25/17 09:33 Dose: 25 mg Vancomycin HCl 1.5 gm/ Sodium (Chloride) 500 mls @ 333.333 mls/hr IVPB BID@0900 ,2100 [facility] PRN Reason: Protocol Last Admin: 08/24/17 21:58 Dose: Not Given Cefepime HCl 1 gm/ Sodium (Chloride) 100 mls @ 100 mls/hr IVPB Q12 [facility] PRN Reason: Protocol Last Admin: 08/25/17 09:27 Dose: 100 mls/hr Ketorolac Tromethamine (Toradol) 15 mg IVP Q6 PRN PRN Reason: Pain, severe (8-10) Last Admin: 08/22/17 05:15 Dose: 15 mg Losartan Potassium (Cozaar) 50 mg PO DAILY [facility] Last Admin: 08/25/17 09:32 Dose: 50 mg Nicotine (Nicoderm Cq) 1 patch TD DAILY [facility] Last Admin: 08/25/17 09:33 Dose: 1 patch Ticagrelor (Brilinta) 90 mg PO BID [facility] Last Admin: 08/25/17 16:38 Dose: 90 mg Tramadol HCl (Ultram) 100 mg PO Q6 PRN PRN Reason: Pain, severe (8-10) Last Admin: 08/25/17 16:36 Dose: 100 mg - Labs Labs: 08/25/17 05:50 08/25/17 05:50 PT 13.0 Seconds (9.8-13.1) 08/16/17 08:10 INR 1.2 (0.9-1.2) 08/16/17 08:10 APTT 40.1 Seconds (25.6-37.1) H 08/16/17 08:10 - Constitutional Appears: Well - Head Exam Head Exam: ATRAUMATIC, NORMAL INSPECTION, NORMOCEPHALIC - Eye Exam Eye Exam: EOMI, Normal appearance, PERRL Pupil Exam: NORMAL ACCOMODATION, PERRL - ENT Exam ENT Exam: Mucous Membranes Moist, Normal Exam - Neck Exam Neck Exam: Full ROM, Normal Inspection. absent: Lymphadenopathy - Respiratory Exam Respiratory Exam: Clear to Ausculation Bilateral, NORMAL BREATHING PATTERN - Cardiovascular Exam Cardiovascular Exam: REGULAR RHYTHM, +S1, +S2. absent: Murmur - GI/Abdominal Exam GI & Abdominal Exam: Soft, Normal Bowel Sounds. absent: Tenderness - Extremities Exam Extremities Exam: Full ROM, Normal Capillary Refill, Normal Inspection, Pedal Edema. absent: Joint Swelling Additional comments: Right foot dsg - Back Exam Back Exam: NORMAL INSPECTION - Neurological Exam Neurological Exam: Alert, Awake, CN II-XII Intact, Normal Gait, Oriented x3 - Psychiatric Exam Psychiatric exam: Normal Affect, Normal Mood - Skin Skin Exam: Dry, Intact, Normal Color, Warm Assessment and Plan (1) PVD (peripheral vascular disease) Assessment & Plan: cont dapt cont bb statins arbs Status: Acute (2) Gangrene due to arterial insufficiency Status: Acute (3) Hypertension Assessment & Plan: cont with cozaar and coreg Status: Acute
--- NOTE | 2017-08-25 18:09 | CP.PCM.PN ---
Subjective - Date & Time of Evaluation Date of Evaluation: 08/25/17 Time of Evaluation: 18:09 - Subjective Subjective: I D NOTE HAVE DISCONTINUED VANCOMYCIN CONTINUE MAXIPEME AT LEAST ANOTHER 2 WEEKS CONSIDERING FINDINGS ESPECIALLY PSEUDOMONAS CULTURE WOULD PLACE PICC Objective - Vital Signs/Intake and Output Vital Signs (last 24 hours): Temp Pulse Resp BP Pulse Ox 98.3 F 83 18 147/78 100 08/25/17 16:42 08/25/17 16:42 08/25/17 16:42 08/25/17 16:42 08/25/17 16:42 - Medications Medications: Current Medications Acetaminophen (Tylenol 325mg Tab) 650 mg PO Q6 PRN PRN Reason: Pain, Mild (1-3) Last Admin: 08/15/17 21:49 Dose: 650 mg Aspirin (Aspirin Chewable) 81 mg PO DAILY [facility] Last Admin: 08/25/17 09:32 Dose: 81 mg Atorvastatin Calcium (Lipitor) 40 mg PO DAILY@2100 [facility] Last Admin: 08/24/17 22:02 Dose: 40 mg Carvedilol (Coreg) 25 mg PO Q12 [facility] Last Admin: 08/25/17 09:33 Dose: 25 mg Cefepime HCl 1 gm/ Sodium (Chloride) 100 mls @ 100 mls/hr IVPB Q12 [facility] PRN Reason: Protocol Last Admin: 08/25/17 09:27 Dose: 100 mls/hr Ketorolac Tromethamine (Toradol) 15 mg IVP Q6 PRN PRN Reason: Pain, severe (8-10) Last Admin: 08/22/17 05:15 Dose: 15 mg Losartan Potassium (Cozaar) 50 mg PO DAILY [facility] Last Admin: 08/25/17 09:32 Dose: 50 mg Nicotine (Nicoderm Cq) 1 patch TD DAILY [facility] Last Admin: 08/25/17 09:33 Dose: 1 patch Ticagrelor (Brilinta) 90 mg PO BID [facility] Last Admin: 08/25/17 16:38 Dose: 90 mg Tramadol HCl (Ultram) 100 mg PO Q6 PRN PRN Reason: Pain, severe (8-10) Last Admin: 08/25/17 16:36 Dose: 100 mg - Labs Labs: 08/25/17 05:50 08/25/17 05:50 PT 13.0 Seconds (9.8-13.1) 08/16/17 08:10 INR 1.2 (0.9-1.2) 08/16/17 08:10 APTT 40.1 Seconds (25.6-37.1) H 08/16/17 08:10
[2017-08-26 06:59] LABS: BASO # 0.1 K/uL (0.0-0.2); EOS # 0.6 K/uL (0.0-0.7); EOS % 5.5 % (0.0-4.0); HEMOGLOBIN 11.5 g/dL (12.0-18.0); LYMPH # 2.3 K/uL (1.0-4.3); MEAN CELL VOLUME 92.5 fl (80.0-94.0); MEAN CORPUSCULAR HEMOGLOBIN 31.9 pg (27.0-31.0); MEAN CORPUSCULAR HGB CONC 34.5 g/dL (33.0-37.0); MEAN PLATELET VOLUME 9.9 fl (7.2-11.7); MONO # 1.2 K/uL (0.0-0.8); MONO % 11.5 % (0.0-10.0); NEUT # 6.3 K/uL (1.8-7.0); RBC 3.6 Mil/uL (4.40-5.90); RED CELL DISTRIBUTION WIDTH 13.5 % (11.5-14.5); WHITE BLOOD COUNT 10.6 K/uL (4.8-10.8)
[2017-08-26 07:08] LABS: BLOOD UREA NITROGEN 10 mg/dl (9-20); CALCIUM 9.1 mg/dL (8.4-10.2); GFR AFRICAN-AMERICAN > 60; GFR NON-AFRICAN AMERICAN > 60
--- NOTE | 2017-08-26 07:53 | CP.PCM.PN ---
Subjective - Date & Time of Evaluation Date of Evaluation: 08/26/17 Time of Evaluation: 07:51 - Subjective Subjective: Pt is doing well with no problems. He has had a slightly elevated Platelet count since the time of admission, but was not high enough to warrant the use of hyroxyurea to bring the count down. Today however, the CBC showed the platelets to be 891k. WBC and Platelets are normal. Plan: Will start hydroxyurea 500 mg tid until the platelet count comes down to below 500K. Objective - Vital Signs/Intake and Output Vital Signs (last 24 hours): Temp Pulse Resp BP Pulse Ox 98.5 F 100 H 19 145/71 97 08/26/17 01:00 08/26/17 01:00 08/26/17 01:00 08/26/17 01:00 08/26/17 01:00 - Medications Medications: Current Medications Acetaminophen (Tylenol 325mg Tab) 650 mg PO Q6 PRN PRN Reason: Pain, Mild (1-3) Last Admin: 08/15/17 21:49 Dose: 650 mg Aspirin (Aspirin Chewable) 81 mg PO DAILY [facility] Last Admin: 08/25/17 09:32 Dose: 81 mg Atorvastatin Calcium (Lipitor) 40 mg PO DAILY@2100 [facility] Last Admin: 08/25/17 21:17 Dose: 40 mg Carvedilol (Coreg) 25 mg PO Q12 [facility] Last Admin: 08/25/17 21:17 Dose: 25 mg Hydroxyurea (Hydrea) 500 mg PO TID [facility] Cefepime HCl 1 gm/ Sodium (Chloride) 100 mls @ 100 mls/hr IVPB Q12 [facility] PRN Reason: Protocol Last Admin: 08/25/17 21:16 Dose: 100 mls/hr Ketorolac Tromethamine (Toradol) 15 mg IVP Q6 PRN PRN Reason: Pain, severe (8-10) Last Admin: 08/22/17 05:15 Dose: 15 mg Losartan Potassium (Cozaar) 50 mg PO DAILY [facility] Last Admin: 08/25/17 09:32 Dose: 50 mg Nicotine (Nicoderm Cq) 1 patch TD DAILY [facility] Last Admin: 08/25/17 09:33 Dose: 1 patch Ticagrelor (Brilinta) 90 mg PO BID [facility] Last Admin: 08/25/17 16:38 Dose: 90 mg Tramadol HCl (Ultram) 100 mg PO Q6 PRN PRN Reason: Pain, severe (8-10) Last Admin: 08/25/17 22:58 Dose: 100 mg - Labs Labs: 08/26/17 06:20 08/26/17 06:20 PT 13.0 Seconds (9.8-13.1) 08/16/17 08:10 INR 1.2 (0.9-1.2) 08/16/17 08:10 APTT 40.1 Seconds (25.6-37.1) H 08/16/17 08:10
--- NOTE | 2017-08-26 07:57 | CP.PCM.PN ---
Subjective - Date & Time of Evaluation Date of Evaluation: 08/26/17 Time of Evaluation: 07:56 - Subjective Subjective: Podiatry progress note for attending Dr. Pham, 61 y/o male patient 5 days S/P right TMA seen and evaluated at bedside. Patient was resting comfortably and in no acute distress. Patient denies any pain at the surgical site. Patients dressing is dry, clean and intact. Patient Denies any over night acute events. Patient denies any F/N/V/C or SOB. Patient denies any other pedal complaint Objective - Vital Signs/Intake and Output Vital Signs (last 24 hours): Temp Pulse Resp BP Pulse Ox 98.5 F 100 H 19 145/71 97 08/26/17 01:00 08/26/17 01:00 08/26/17 01:00 08/26/17 01:00 08/26/17 01:00 - Medications Medications: Current Medications Acetaminophen (Tylenol 325mg Tab) 650 mg PO Q6 PRN PRN Reason: Pain, Mild (1-3) Last Admin: 08/15/17 21:49 Dose: 650 mg Aspirin (Aspirin Chewable) 81 mg PO DAILY [facility] Last Admin: 08/25/17 09:32 Dose: 81 mg Atorvastatin Calcium (Lipitor) 40 mg PO DAILY@2100 [facility] Last Admin: 08/25/17 21:17 Dose: 40 mg Carvedilol (Coreg) 25 mg PO Q12 [facility] Last Admin: 08/25/17 21:17 Dose: 25 mg Hydroxyurea (Hydrea) 500 mg PO TID [facility] Cefepime HCl 1 gm/ Sodium (Chloride) 100 mls @ 100 mls/hr IVPB Q12 [facility] PRN Reason: Protocol Last Admin: 08/25/17 21:16 Dose: 100 mls/hr Ketorolac Tromethamine (Toradol) 15 mg IVP Q6 PRN PRN Reason: Pain, severe (8-10) Last Admin: 08/22/17 05:15 Dose: 15 mg Losartan Potassium (Cozaar) 50 mg PO DAILY [facility] Last Admin: 08/25/17 09:32 Dose: 50 mg Nicotine (Nicoderm Cq) 1 patch TD DAILY [facility] Last Admin: 08/25/17 09:33 Dose: 1 patch Ticagrelor (Brilinta) 90 mg PO BID [facility] Last Admin: 08/25/17 16:38 Dose: 90 mg Tramadol HCl (Ultram) 100 mg PO Q6 PRN PRN Reason: Pain, severe (8-10) Last Admin: 08/25/17 22:58 Dose: 100 mg - Labs Labs: 08/26/17 06:20 08/26/17 06:20 PT 13.0 Seconds (9.8-13.1) 08/16/17 08:10 INR 1.2 (0.9-1.2) 08/16/17 08:10 APTT 40.1 Seconds (25.6-37.1) H 08/16/17 08:10 - Constitutional Appears: Well, Non-toxic, No Acute Distress - Head Exam Head Exam: ATRAUMATIC, NORMOCEPHALIC
--- NOTE | 2017-08-26 08:45 | CP.PCM.PN ---
Subjective - Date & Time of Evaluation Date of Evaluation: 08/26/17 Time of Evaluation: 08:40 - Subjective Subjective: Podiatry progress note for attending Dr. Pham, 61 y/o male patient 5 days S/P right TMA seen and evaluated at bedside. Patient was resting comfortably and in no acute distress. Patient denies any pain at the surgical site. Patient's dressing soaked with sero-sanguinous drainage and strike-through was noted, otherwise intact. Patient Denies any over night acute events. Patient denies any F/N/V/C or SOB. Patient denies any other pedal complaint Objective - Vital Signs/Intake and Output Vital Signs (last 24 hours): Temp Pulse Resp BP Pulse Ox 98.3 F 78 20 157/70 H 100 08/26/17 08:01 08/26/17 08:01 08/26/17 08:01 08/26/17 08:01 08/26/17 08:01 - Medications Medications: Current Medications Acetaminophen (Tylenol 325mg Tab) 650 mg PO Q6 PRN PRN Reason: Pain, Mild (1-3) Last Admin: 08/15/17 21:49 Dose: 650 mg Aspirin (Aspirin Chewable) 81 mg PO DAILY [facility] Last Admin: 08/25/17 09:32 Dose: 81 mg Atorvastatin Calcium (Lipitor) 40 mg PO DAILY@2100 [facility] Last Admin: 08/25/17 21:17 Dose: 40 mg Carvedilol (Coreg) 25 mg PO Q12 [facility] Last Admin: 08/25/17 21:17 Dose: 25 mg Hydroxyurea (Hydrea) 500 mg PO TID [facility] Cefepime HCl 1 gm/ Sodium (Chloride) 100 mls @ 100 mls/hr IVPB Q12 [facility] PRN Reason: Protocol Last Admin: 08/25/17 21:16 Dose: 100 mls/hr Ketorolac Tromethamine (Toradol) 15 mg IVP Q6 PRN PRN Reason: Pain, severe (8-10) Last Admin: 08/22/17 05:15 Dose: 15 mg Losartan Potassium (Cozaar) 50 mg PO DAILY [facility] Last Admin: 08/25/17 09:32 Dose: 50 mg Nicotine (Nicoderm Cq) 1 patch TD DAILY [facility] Last Admin: 08/25/17 09:33 Dose: 1 patch Ticagrelor (Brilinta) 90 mg PO BID [facility] Last Admin: 08/25/17 16:38 Dose: 90 mg Tramadol HCl (Ultram) 100 mg PO Q6 PRN PRN Reason: Pain, severe (8-10) Last Admin: 08/25/17 22:58 Dose: 100 mg - Labs Labs: 08/26/17 06:20 08/26/17 06:20 PT 13.0 Seconds (9.8-13.1) 08/16/17 08:10 INR 1.2 (0.9-1.2) 08/16/17 08:10 APTT 40.1 Seconds (25.6-37.1) H 08/16/17 08:10 - Constitutional Appears: Well, Non-toxic, No Acute Distress - Head Exam Head Exam: ATRAUMATIC, NORMOCEPHALIC - Extremities Exam Additional comments: Right Lower Extremity focused exam: Vasc: DP and PT pulse 1/4 noted, Temp gradient warm to cool from proximal to distal, no edema or erythema noted. Neuro: Grossly diminished Derm: minimal drainage noted at the TMA site, sutures intact, no signs of wound dehiscence, no clinical signs of infection MSK: pain on palpation at the TMA site, Muscle power 4/5 in all muscle groups on the R side and 5/5 in all muscle groups of the L side - Neurological Exam Neurological Exam: Alert, Awake, Oriented x3 - Psychiatric Exam Psychiatric exam: Normal Affect, Normal Mood Assessment and Plan - Assessment and Plan (Free Text) Assessment: 61 y/o male patient 5 day S/P right TMA amputation Plan: Patient seen and evaluated at bedside Patient Plan discussed with Dr. Pham Chart, labs and vitals reviewed- afebrile, WBC 11.3 Culture results: Pseudomonas Aeruginosa Patient wound dressed betadine, adaptic, and DSD Patient sutures to be kept intact until patient follows up in Podiatry clinic Post X-rays: interval TMA with adjacent post-surgical changes Patient will follow-up in the Podiatry clinic with Dr. Pham Plan: patient stable for discharge from podiatry standpoint.
[2017-08-26] MEDS: Cefepime 1 GM in Sodium Chloride 0.9% 100 ML IVPB SCH ×2 (09:56→20:56)
--- NOTE | 2017-08-26 10:35 | CP.PCM.PN ---
Subjective - Date & Time of Evaluation Date of Evaluation: 08/26/17 Time of Evaluation: 10:32 - Subjective Subjective: s/p tma pod # 5 Objective - Vital Signs/Intake and Output Vital Signs (last 24 hours): Temp Pulse Resp BP Pulse Ox 98.3 F 84 20 159/75 H 100 08/26/17 08:01 08/26/17 09:56 08/26/17 08:01 08/26/17 09:56 08/26/17 08:01 - Medications Medications: Current Medications Acetaminophen (Tylenol 325mg Tab) 650 mg PO Q6 PRN PRN Reason: Pain, Mild (1-3) Last Admin: 08/15/17 21:49 Dose: 650 mg Aspirin (Aspirin Chewable) 81 mg PO DAILY [facility] Last Admin: 08/26/17 09:52 Dose: Not Given Atorvastatin Calcium (Lipitor) 40 mg PO DAILY@2100 [facility] Last Admin: 08/25/17 21:17 Dose: 40 mg Carvedilol (Coreg) 25 mg PO Q12 [facility] Last Admin: 08/26/17 09:55 Dose: 25 mg Hydroxyurea (Hydrea) 500 mg PO TID [facility] Cefepime HCl 1 gm/ Sodium (Chloride) 100 mls @ 100 mls/hr IVPB Q12 [facility] PRN Reason: Protocol Last Admin: 08/26/17 09:56 Dose: 100 mls/hr Ketorolac Tromethamine (Toradol) 15 mg IVP Q6 PRN PRN Reason: Pain, severe (8-10) Last Admin: 08/22/17 05:15 Dose: 15 mg Losartan Potassium (Cozaar) 50 mg PO DAILY [facility] Last Admin: 08/26/17 09:56 Dose: 50 mg Nicotine (Nicoderm Cq) 1 patch TD DAILY [facility] Last Admin: 08/26/17 09:56 Dose: 1 patch Ticagrelor (Brilinta) 90 mg PO BID [facility] Last Admin: 08/26/17 10:00 Dose: Not Given Tramadol HCl (Ultram) 100 mg PO Q6 PRN PRN Reason: Pain, severe (8-10) Last Admin: 08/25/17 22:58 Dose: 100 mg - Labs Labs: 08/26/17 06:20 08/26/17 06:20 PT 13.0 Seconds (9.8-13.1) 08/16/17 08:10 INR 1.2 (0.9-1.2) 08/16/17 08:10 APTT 40.1 Seconds (25.6-37.1) H 08/16/17 08:10 - Constitutional Appears: Well - Head Exam Head Exam: ATRAUMATIC, NORMAL INSPECTION, NORMOCEPHALIC - Eye Exam Eye Exam: EOMI, Normal appearance, PERRL Pupil Exam: NORMAL ACCOMODATION, PERRL - ENT Exam ENT Exam: Mucous Membranes Moist, Normal Exam - Neck Exam Neck Exam: Full ROM, Normal Inspection. absent: Lymphadenopathy - Respiratory Exam Respiratory Exam: Clear to Ausculation Bilateral, NORMAL BREATHING PATTERN - Cardiovascular Exam Cardiovascular Exam: REGULAR RHYTHM, +S1, +S2. absent: Murmur - GI/Abdominal Exam GI & Abdominal Exam: Soft, Normal Bowel Sounds. absent: Tenderness - Rectal Exam Rectal Exam: NORMAL INSPECTION - Exam Exam: Circumcision, NORMAL INSPECTION External exam: NORMAL EXTERNAL EXAM Speculum exam: NORMAL SPECULUM EXAM Bimanual exam: NORMAL BIMANUAL EXAM - Extremities Exam Extremities Exam: Full ROM, Normal Capillary Refill, Normal Inspection. absent : Joint Swelling, Pedal Edema - Back Exam Back Exam: NORMAL INSPECTION - Neurological Exam Neurological Exam: Alert, Awake, CN II-XII Intact, Normal Gait, Oriented x3 - Psychiatric Exam Psychiatric exam: Normal Affect, Normal Mood - Skin Skin Exam: Dry, Intact, Normal Color, Warm Assessment and Plan (1) PVD (peripheral vascular disease) Assessment & Plan: cont dapt cont acei, statins cont coreg Status: Acute (2) Gangrene due to arterial insufficiency Status: Acute (3) Hypertension Status: Acute
[2017-08-26] MEDS ORDERED: Lidocaine 1% Inj (20ml) ONE (11:29)
--- NOTE | 2017-08-26 11:40 | PCM.SURG1 ---
Surgeon's Initial Post Op Note - Surgeon's Notes Surgeon: Piyush Briones MD Design Engineering Manager: NONE Type of Anesthesia: Local Pre-Operative Diagnosis: Infection Operative Findings: US showed patent right basilic vein Post-Operative Diagnosis: Infection Operation Performed: Single lumen picc right arm, 39 cm. Tip is in the SVC. Specimen/Specimens Removed: NONE Estimated Blood Loss: EBL {In ML}: 2 Blood Products Given: N/A Drains Used: No Drains Post-Op Condition: Fair Date of Surgery/Procedure: 08/26/17 Time of Surgery/Procedure: 11:35
--- NOTE | 2017-08-26 12:18 | VASCULAR ---
PROCEDURE: Date of procedure: 08/26/2017 Procedure: 1. Placement of a right arm PICC with ultrasound and fluoroscopic guidance, CPT 05073 2. PICC tip confirmation with spot radiograph and is in the superior vena cava Medications: 1 percent lidocaine Total Fluoro time: 4.2 seconds Radiation: 0.50 MGy EBL: 2 cc HISTORY: Infection requiring long-term IV antibiotics TECHNIQUE: Following informed consent and procedure time-out, the patient was placed supine on the interventional table and the right arm prepped and draped in the usual sterile fashion. Ultrasound showed a patent and compressible right basilic vein. After the skin was anesthetized with lidocaine, the basilic vein was accessed with micro micropuncture technique using ultrasound guidance. A guidewire was then advanced under fluoroscopic guidance into the superior vena cava. An image documenting ultrasound guidance for vascular access was permanently saved. The length of the single-lumen 4 Georgian PICC was trimmed to 39 centimeters and advanced through a peel-away sheath. The PICC was position with tip of PICC confirm a spot radiograph the superior vena cava. The PICC was secured to the patient's skin. The PICC was flushed. A biopatch and sterile dressing was applied. IMPRESSION: Placement of a single-lumen 4 Georgian PICC trimmed to 39 centimeters via right basilic vein. The tip of the PICC is confirmed with spot radiograph and is in the superior vena cava.
--- NOTE | 2017-08-26 12:40 | CP.PCM.PN ---
Subjective - Date & Time of Evaluation Date of Evaluation: 08/26/17 Time of Evaluation: 12:39 - Subjective Subjective: Patient seen and examined at bedside. Denies pain. No complaints/no acute events over night Objective - Vital Signs/Intake and Output Vital Signs (last 24 hours): Temp Pulse Resp BP Pulse Ox 96.8 F L 84 20 154/94 H 100 08/26/17 11:24 08/26/17 11:24 08/26/17 08:01 08/26/17 11:24 08/26/17 08:01 - Medications Medications: Current Medications Acetaminophen (Tylenol 325mg Tab) 650 mg PO Q6 PRN PRN Reason: Pain, Mild (1-3) Last Admin: 08/15/17 21:49 Dose: 650 mg Aspirin (Aspirin Chewable) 81 mg PO DAILY [facility] Last Admin: 08/26/17 09:52 Dose: Not Given Atorvastatin Calcium (Lipitor) 40 mg PO DAILY@2100 [facility] Last Admin: 08/25/17 21:17 Dose: 40 mg Carvedilol (Coreg) 25 mg PO Q12 [facility] Last Admin: 08/26/17 09:55 Dose: 25 mg Hydroxyurea (Hydrea) 500 mg PO TID [facility] Last Admin: 08/26/17 12:26 Dose: Not Given Cefepime HCl 1 gm/ Sodium (Chloride) 100 mls @ 100 mls/hr IVPB Q12 [facility] PRN Reason: Protocol Last Admin: 08/26/17 09:56 Dose: 100 mls/hr Ketorolac Tromethamine (Toradol) 15 mg IVP Q6 PRN PRN Reason: Pain, severe (8-10) Last Admin: 08/22/17 05:15 Dose: 15 mg Losartan Potassium (Cozaar) 50 mg PO DAILY [facility] Last Admin: 08/26/17 09:56 Dose: 50 mg Nicotine (Nicoderm Cq) 1 patch TD DAILY [facility] Last Admin: 08/26/17 09:56 Dose: 1 patch Ticagrelor (Brilinta) 90 mg PO BID [facility] Last Admin: 08/26/17 10:00 Dose: Not Given Tramadol HCl (Ultram) 100 mg PO Q6 PRN PRN Reason: Pain, severe (8-10) Last Admin: 08/25/17 22:58 Dose: 100 mg - Labs Labs: 08/26/17 06:20 08/26/17 06:20 PT 13.0 Seconds (9.8-13.1) 08/16/17 08:10 INR 1.2 (0.9-1.2) 08/16/17 08:10 APTT 40.1 Seconds (25.6-37.1) H 08/16/17 08:10 - Constitutional Appears: Well, No Acute Distress - ENT Exam ENT Exam: Mucous Membranes Moist - Respiratory Exam Respiratory Exam: Clear to Ausculation Bilateral, NORMAL BREATHING PATTERN - Cardiovascular Exam Cardiovascular Exam: REGULAR RHYTHM, RRR, +S1, +S2 - GI/Abdominal Exam GI & Abdominal Exam: Soft, Normal Bowel Sounds. absent: Tenderness - Extremities Exam Additional comments: right foot wrapped, clean and dry - Neurological Exam Neurological Exam: Alert, Awake, Oriented x3 - Psychiatric Exam Psychiatric exam: Normal Affect - Skin Skin Exam: Dry, Intact, Warm Assessment and Plan - Assessment and Plan (Free Text) Assessment: 61 y/o male s/POD #5 Right TMA amputation for gangrenous right 2nd and 3rd toes. Patient, chart, labs, and notes reviewed. Plan: 1. Rt Foot 2nd/3rd toe gangrene: -s/p right transmetatarsal amputation -s/p percutaneous transluminal angioplasty & atherectomy of 100% occluded SFA w / stenting of mid SFA and angioplasty w/ drug coated balloon of ostial SFA -CT Angiogram showed chronic SFA occlusion, calcified plaque popliteal artery, moderate stenosis; occluded anterior tibial artery, calcified tibioperoneal artery w/ moderate stenosis -R. foot x-ray: soft tissue swelling, osseous abnormality noted in the distal aspect of the forefoot -Cultures + Pseudomonas Aeruginosa; ID on board- continue w/ Cipro and Vanco, last Vanco trougt 7.8 -Foot is dressed, clean and dry -okay to d/c per podiatry and to f/u w/ Dr. Pham -PT following, patient ambulating w/ crutches -On cefepime 1gm BID -given order for Maxapime 2gm IV QD [id number]. PICC line inserted 08/26 2.Hyponatremia -resolved, Na+ 134 today -possibly 2/2 to SIADH vs. HCTZ -Urine Na+ 111, Serum Osm 270, Urine Osm 494 -D/c HCTZ -will monitor and f/u 3. Thrombocytosis -likely reactive -hydroxyurea if platelet count >800 per GI -currently being followed by heme onc, will f/u recommendations -Platelets 891 -Hydroxyurea 500mg PO TID 4. Leukocytosis -improving -cultures + for P. aeruginosa -WBC 10.6 -On Cefepime 1 gm 100 mL IV BID -Vancomycin d/c, trough 16.4 -ID consult on board 5. HTN: -chronic, asymptomatic, controlled -Coreg 25mg PO BID, and Losartan 50mg PO QD 6. HLD -c/w atorvastatin 40mg PO QD 7. Prediabetes -Diet control 8. Diet -Heart healthy 9.DVT Prophylaxis: -Brillinta 90mg BID -Lovenox 40mg SC 10. Code status -full code.
[2017-08-27 06:19] LABS: HEMOGLOBIN 11.3 g/dL (12.0-18.0); MEAN CORPUSCULAR HEMOGLOBIN 31.9 pg (27.0-31.0); MEAN CORPUSCULAR HGB CONC 34.3 g/dL (33.0-37.0); RBC 3.55 Mil/uL (4.40-5.90); RED CELL DISTRIBUTION WIDTH 13.1 % (11.5-14.5); WHITE BLOOD COUNT 11.3 K/uL (4.8-10.8)
[2017-08-27 06:34] LABS: BLOOD UREA NITROGEN 9 mg/dl (9-20); CALCIUM 9.5 mg/dL (8.4-10.2); GFR AFRICAN-AMERICAN > 60; GFR NON-AFRICAN AMERICAN > 60
--- NOTE | 2017-08-27 08:00 | CP.PCM.PN ---
Subjective - Date & Time of Evaluation Date of Evaluation: 08/27/17 Time of Evaluation: 07:58 - Subjective Subjective: Podiatry progress note for attending Dr. Pham, 61 y/o male patient 6 days S/P right TMA seen and evaluated at bedside. Patient was resting comfortably and in no acute distress. Patient denies any pain at the surgical site. Patient's dressing is intact, serosanguinous strike-through noted. Patient denies any overnight acute events. Patient denies any F/N/V/C or SOB. Patient denies any other pedal complaint. Objective - Vital Signs/Intake and Output Vital Signs (last 24 hours): Temp Pulse Resp BP Pulse Ox 98.9 F 91 H 20 144/73 95 08/27/17 00:47 08/27/17 00:47 08/27/17 00:47 08/27/17 00:47 08/27/17 00:47 - Medications Medications: Current Medications Acetaminophen (Tylenol 325mg Tab) 650 mg PO Q6 PRN PRN Reason: Pain, Mild (1-3) Last Admin: 08/15/17 21:49 Dose: 650 mg Aspirin (Aspirin Chewable) 81 mg PO DAILY [facility] Last Admin: 08/26/17 12:44 Dose: 81 mg Atorvastatin Calcium (Lipitor) 40 mg PO DAILY@2100 [facility] Last Admin: 08/26/17 20:56 Dose: 40 mg Carvedilol (Coreg) 25 mg PO Q12 [facility] Last Admin: 08/26/17 20:55 Dose: 25 mg Hydroxyurea (Hydrea) 500 mg PO TID [facility] Last Admin: 08/26/17 17:21 Dose: 500 mg Cefepime HCl 1 gm/ Sodium (Chloride) 100 mls @ 100 mls/hr IVPB Q12 [facility] PRN Reason: Protocol Last Admin: 08/26/17 20:56 Dose: 100 mls/hr Ketorolac Tromethamine (Toradol) 15 mg IVP Q6 PRN PRN Reason: Pain, severe (8-10) Last Admin: 08/22/17 05:15 Dose: 15 mg Losartan Potassium (Cozaar) 50 mg PO DAILY [facility] Last Admin: 08/26/17 09:56 Dose: 50 mg Nicotine (Nicoderm Cq) 1 patch TD DAILY [facility] Last Admin: 08/26/17 09:56 Dose: 1 patch Ticagrelor (Brilinta) 90 mg PO BID [facility] Last Admin: 08/26/17 17:21 Dose: 90 mg Tramadol HCl (Ultram) 100 mg PO Q6 PRN PRN Reason: Pain, severe (8-10) Last Admin: 08/26/17 22:16 Dose: 100 mg - Labs Labs: 08/27/17 05:35 08/27/17 05:35 PT 13.0 Seconds (9.8-13.1) 08/16/17 08:10 INR 1.2 (0.9-1.2) 08/16/17 08:10 APTT 40.1 Seconds (25.6-37.1) H 08/16/17 08:10 - Constitutional Appears: Well, Non-toxic, No Acute Distress - Head Exam Head Exam: ATRAUMATIC, NORMOCEPHALIC - Extremities Exam Additional comments: Right Lower Extremity focused exam: Vasc: DP and PT pulse 1/4 noted, Temp gradient warm to cool from proximal to distal, no edema or erythema noted. Neuro: Protective sensation grossly diminished Derm: minimal sanguineous drainage noted at the TMA site, sutures intact, no signs of wound dehiscence, no clinical signs of infection MSK: mild pain on palpation at the TMA site, Muscle power 4/5 in all muscle groups on the R side and 5/5 in all muscle groups of the L side - Neurological Exam Neurological Exam: Alert, Awake, Oriented x3 - Psychiatric Exam Psychiatric exam: Normal Affect, Normal Mood - Skin Skin Exam: Normal Color Assessment and Plan - Assessment and Plan (Free Text) Assessment: 61 y/o male patient 6 day S/P right TMA amputation Plan: Patient seen and evaluated at bedside Patient plan discussed with Dr. Pham Chart, labs and vitals reviewed- afebrile, WBC 11.3 Post X-rays: interval TMA with adjacent post-surgical changes Culture results: Pseudomonas Aeruginosa As per ID, patient Vanc will be d/c and patient will be started on Meropenem for 2 weeks. patient will receive PICC line. Patient wound dressed betadine, adaptic, and DSD Patient sutures to be kept intact until patient follows up in Podiatry clinic Patient will follow-up in the Podiatry clinic with Dr. Pham Plan: patient stable for discharge from podiatry standpoint.
[2017-08-27] MEDS: Cefepime 1 GM in Sodium Chloride 0.9% 100 ML IVPB SCH (08:21)
--- NOTE | 2017-08-27 08:32 | CP.PCM.PN ---
Subjective - Date & Time of Evaluation Date of Evaluation: 08/27/17 Time of Evaluation: 08:28 - Subjective Subjective: Pt is doing well, his platelets dropped from 891 to 838K. Pt is being discharged today. I would send him home on 2 hydroxyurea tabs daily. Do a cbc q 3 days. When the count goes below 750 cut down to 1 tab daily , and stop hydrea when the count is down to 500k. Objective - Vital Signs/Intake and Output Vital Signs (last 24 hours): Temp Pulse Resp BP Pulse Ox 98.9 F 91 H 20 144/73 95 08/27/17 00:47 08/27/17 00:47 08/27/17 00:47 08/27/17 00:47 08/27/17 00:47 - Medications Medications: Current Medications Acetaminophen (Tylenol 325mg Tab) 650 mg PO Q6 PRN PRN Reason: Pain, Mild (1-3) Last Admin: 08/15/17 21:49 Dose: 650 mg Aspirin (Aspirin Chewable) 81 mg PO DAILY [facility] Last Admin: 08/27/17 08:20 Dose: 81 mg Atorvastatin Calcium (Lipitor) 40 mg PO DAILY@2100 [facility] Last Admin: 08/26/17 20:56 Dose: 40 mg Carvedilol (Coreg) 25 mg PO Q12 [facility] Last Admin: 08/27/17 08:19 Dose: 25 mg Hydroxyurea (Hydrea) 500 mg PO TID [facility] Last Admin: 08/27/17 08:19 Dose: 500 mg Cefepime HCl 1 gm/ Sodium (Chloride) 100 mls @ 100 mls/hr IVPB Q12 [facility] PRN Reason: Protocol Last Admin: 08/27/17 08:21 Dose: 100 mls/hr Ketorolac Tromethamine (Toradol) 15 mg IVP Q6 PRN PRN Reason: Pain, severe (8-10) Last Admin: 08/22/17 05:15 Dose: 15 mg Losartan Potassium (Cozaar) 50 mg PO DAILY [facility] Last Admin: 08/27/17 08:20 Dose: 50 mg Nicotine (Nicoderm Cq) 1 patch TD DAILY [facility] Last Admin: 08/26/17 09:56 Dose: 1 patch Ticagrelor (Brilinta) 90 mg PO BID [facility] Last Admin: 08/27/17 08:20 Dose: 90 mg Tramadol HCl (Ultram) 100 mg PO Q6 PRN PRN Reason: Pain, severe (8-10) Last Admin: 08/27/17 08:14 Dose: 100 mg - Labs Labs: 08/27/17 05:35 08/27/17 05:35 PT 13.0 Seconds (9.8-13.1) 08/16/17 08:10 INR 1.2 (0.9-1.2) 08/16/17 08:10 APTT 40.1 Seconds (25.6-37.1) H 08/16/17 08:10
--- NOTE | 2017-08-27 10:57 | CP.PCM.PN ---
Subjective - Date & Time of Evaluation Date of Evaluation: 08/27/17 Time of Evaluation: 10:56 - Subjective Subjective: Patient seen and examined at bedside. Denies pain. Labs, charts, and nurse notes reviewed. No acute events overnight. Objective - Vital Signs/Intake and Output Vital Signs (last 24 hours): Temp Pulse Resp BP Pulse Ox 98 F 80 20 149/77 99 08/27/17 08:50 08/27/17 08:50 08/27/17 08:50 08/27/17 08:50 08/27/17 08:50 - Medications Medications: Current Medications Acetaminophen (Tylenol 325mg Tab) 650 mg PO Q6 PRN PRN Reason: Pain, Mild (1-3) Last Admin: 08/15/17 21:49 Dose: 650 mg Aspirin (Aspirin Chewable) 81 mg PO DAILY [facility] Last Admin: 08/27/17 08:20 Dose: 81 mg Atorvastatin Calcium (Lipitor) 40 mg PO DAILY@2100 [facility] Last Admin: 08/26/17 20:56 Dose: 40 mg Carvedilol (Coreg) 25 mg PO Q12 [facility] Last Admin: 08/27/17 08:19 Dose: 25 mg Hydroxyurea (Hydrea) 500 mg PO TID [facility] Last Admin: 08/27/17 08:19 Dose: 500 mg Cefepime HCl 2 gm/ Sodium (Chloride) 100 mls @ 100 mls/hr IVPB DAILY [facility] PRN Reason: Protocol Ketorolac Tromethamine (Toradol) 15 mg IVP Q6 PRN PRN Reason: Pain, severe (8-10) Last Admin: 08/22/17 05:15 Dose: 15 mg Losartan Potassium (Cozaar) 100 mg PO DAILY [facility] Nicotine (Nicoderm Cq) 1 patch TD DAILY [facility] Last Admin: 08/26/17 09:56 Dose: 1 patch Ticagrelor (Brilinta) 90 mg PO BID [facility] Last Admin: 08/27/17 08:20 Dose: 90 mg Tramadol HCl (Ultram) 100 mg PO Q6 PRN PRN Reason: Pain, severe (8-10) Last Admin: 08/27/17 08:14 Dose: 100 mg - Labs Labs: 08/27/17 05:35 08/27/17 05:35 PT 13.0 Seconds (9.8-13.1) 08/16/17 08:10 INR 1.2 (0.9-1.2) 08/16/17 08:10 APTT 40.1 Seconds (25.6-37.1) H 08/16/17 08:10 - Constitutional Appears: Well, No Acute Distress - ENT Exam ENT Exam: Mucous Membranes Moist - Respiratory Exam Respiratory Exam: Clear to Ausculation Bilateral, NORMAL BREATHING PATTERN - Cardiovascular Exam Cardiovascular Exam: REGULAR RHYTHM, RRR, +S1, +S2 - GI/Abdominal Exam GI & Abdominal Exam: Soft, Normal Bowel Sounds. absent: Tenderness - Extremities Exam Additional comments: right food wrapped, dry, and clean - Neurological Exam Neurological Exam: Alert, Awake, Oriented x3 - Skin Skin Exam: Dry, Intact, Warm Assessment and Plan - Assessment and Plan (Free Text) Assessment: 61 y/o male s/p TMA amputation for gangrenous right 2nd and 3rd toes. Patient, chart, labs, and notes reviewed. Plan: 1. Rt Foot 2nd/3rd toe gangrene: -s/p right transmetatarsal amputation -s/p percutaneous transluminal angioplasty & atherectomy of 100% occluded SFA w / stenting of mid SFA and angioplasty w/ drug coated balloon of ostial SFA -CT Angiogram showed chronic SFA occlusion, calcified plaque popliteal artery, moderate stenosis; occluded anterior tibial artery, calcified tibioperoneal artery w/ moderate stenosis -R. foot x-ray: soft tissue swelling, osseous abnormality noted in the distal aspect of the forefoot -Cultures + Pseudomonas Aeruginosa; ID on board- continue w/ Cipro and Vanco, last Vanco trougt 7.8 -Foot is dressed, clean and dry -okay to d/c per podiatry and to f/u w/ Dr. Pham -PT following, patient ambulating w/ crutches -On cefepime 1gm BID -given order for Maxapime 2gm IV QD [id number]. PICC line inserted 08/26 2.Hyponatremia -resolved, Na+ 137 today -possibly 2/2 to SIADH vs. HCTZ -Serum Osm 270, Urine Osm 497 -D/c HCTZ, increased Cozaar to 100mg -will monitor and f/u 3. Thrombocytosis -likely reactive -hydroxyurea if platelet count >800 per GI -currently being followed by heme onc, will f/u recommendations -Platelets 838 -Hydroxyurea 500mg PO TID 4. Leukocytosis -improving -cultures + for P. aeruginosa -WBC 11.3 -On Cefepime 1 gm 100 mL IV BID -Vancomycin d/c, trough 16.4 -ID consult on board 5. HTN: -chronic, asymptomatic, controlled -Coreg 25mg PO BID, -Losartan 50mg PO QD increased to 100mg after discontinuing HCTZ 6. HLD -c/w atorvastatin 40mg PO QD 7. Prediabetes -Diet control 8. Diet -Heart healthy 9.DVT Prophylaxis: -Brillinta 90mg BID -Lovenox 40mg SC 10. Code status -full code.
[2017-08-28 01:10] VITALS: O2SAT 99
[2017-08-28 07:57] VITALS: BP 158/76; PULSE 77; RESP 20; TEMP 97.6
[2017-08-28] MEDS ORDERED: Cefepime 2 GM in Sodium Chloride 0.9% 100 ML IVPB SCH (09:00)
--- NOTE | 2017-08-28 10:01 | CP.PCM.PN ---
Subjective - Date & Time of Evaluation Date of Evaluation: 08/28/17 Time of Evaluation: 09:58 - Subjective Subjective: Podiatry progress note for attending Dr. Pham, 61 y/o male patient 7 days S/P right TMA seen and evaluated at bedside. Patient was resting comfortably and in no acute distress. Patient denies any pain at the surgical site. Patient's dressing is intact, serosanguinous strike-through noted. Patient denies any overnight acute events. Patient denies any F/N/V/C or SOB. Patient denies any other pedal complaint. Objective - Vital Signs/Intake and Output Vital Signs (last 24 hours): Temp Pulse Resp BP Pulse Ox 97.6 F 77 20 158/76 H 99 08/28/17 07:56 08/28/17 07:56 08/28/17 07:56 08/28/17 07:56 08/28/17 07:56 - Medications Medications: Current Medications Acetaminophen (Tylenol 325mg Tab) 650 mg PO Q6 PRN PRN Reason: Pain, Mild (1-3) Last Admin: 08/15/17 21:49 Dose: 650 mg Aspirin (Aspirin Chewable) 81 mg PO DAILY [facility] Last Admin: 08/28/17 08:48 Dose: 81 mg Atorvastatin Calcium (Lipitor) 40 mg PO DAILY@2100 [facility] Last Admin: 08/27/17 21:13 Dose: 40 mg Carvedilol (Coreg) 25 mg PO Q12 [facility] Last Admin: 08/28/17 08:48 Dose: 25 mg Hydroxyurea (Hydrea) 500 mg PO TID [facility] Last Admin: 08/28/17 08:48 Dose: 500 mg Cefepime HCl 2 gm/ Sodium (Chloride) 100 mls @ 100 mls/hr IVPB DAILY [facility] PRN Reason: Protocol Last Admin: 08/28/17 08:48 Dose: 100 mls/hr Ketorolac Tromethamine (Toradol) 15 mg IVP Q6 PRN PRN Reason: Pain, severe (8-10) Last Admin: 08/22/17 05:15 Dose: 15 mg Losartan Potassium (Cozaar) 100 mg PO DAILY [facility] Last Admin: 08/28/17 08:48 Dose: 100 mg Nicotine (Nicoderm Cq) 1 patch TD DAILY [facility] Last Admin: 08/28/17 08:49 Dose: 1 patch Ticagrelor (Brilinta) 90 mg PO BID [facility] Last Admin: 08/28/17 08:48 Dose: 90 mg Tramadol HCl (Ultram) 100 mg PO Q6 PRN PRN Reason: Pain, severe (8-10) Last Admin: 08/27/17 21:20 Dose: 100 mg - Labs Labs: 08/27/17 05:35 08/27/17 05:35 PT 13.0 Seconds (9.8-13.1) 08/16/17 08:10 INR 1.2 (0.9-1.2) 08/16/17 08:10 APTT 40.1 Seconds (25.6-37.1) H 08/16/17 08:10 - Constitutional Appears: Well, Non-toxic, No Acute Distress - Head Exam Head Exam: ATRAUMATIC, NORMOCEPHALIC - Extremities Exam Additional comments: Right Lower Extremity focused exam: Vasc: DP and PT pulse 1/4 noted, Temp gradient warm to cool from proximal to distal, no edema or erythema noted. Neuro: Protective sensation grossly diminished Derm: moderate sanguineous drainage noted at the TMA site, sutures intact, no signs of wound dehiscence, no clinical signs of infection MSK: mild pain on palpation at the TMA site, Muscle power 4/5 in all muscle groups on the R side and 5/5 in all muscle groups of the L side - Neurological Exam Neurological Exam: Alert, Awake, Oriented x3 - Psychiatric Exam Psychiatric exam: Normal Affect, Normal Mood Assessment and Plan - Assessment and Plan (Free Text) Assessment: 61 y/o male patient 7 days S/P right TMA amputation Plan: Patient seen and evaluated at bedside Patient plan discussed with Dr. Pham Chart, labs and vitals reviewed- afebrile Post X-rays: interval TMA with adjacent post-surgical changes Culture results: Pseudomonas Aeruginosa Patient wound dressed betadine, adaptic, and DSD Patient sutures to be kept intact until patient follows up in Podiatry clinic Patient will follow-up in the Podiatry clinic with Dr. Pham Plan: patient stable for discharge from podiatry standpoint.
--- NOTE | 2017-08-28 12:27 | CP.PCM.DIS ---
Provider - Provider Date of Admission: 08/10/17 13:44 Attending physician: Qing Webster MD Time Spent in preparation of Discharge (in minutes): 35 Hospital Course - Lab Results Lab Results: Micro Results 08/10/17 11:25 Blood-Venous Blood Culture - Final NO GROWTH AFTER 5 DAYS 08/10/17 11:25 Blood-Venous Gram Stain - Final TEST NOT PERFORMED 08/10/17 11:00 Blood-Venous Blood Culture - Final NO GROWTH AFTER 5 DAYS 08/10/17 13:41 Foot - Right Gram Stain - Final 08/10/17 13:41 Foot - Right Wound Culture - Final Pseudomonas Aeruginosa Most Recent Lab Values WBC 11.3 K/uL (4.8-10.8) H 08/27/17 05:35 RBC 3.55 Mil/uL (4.40-5.90) L 08/27/17 05:35 Hgb 11.3 g/dL (12.0-18.0) L 08/27/17 05:35 Hct 33.0 % (35.0-51.0) L 08/27/17 05:35 MCV 93.0 fl (80.0-94.0) 08/27/17 05:35 MCH 31.9 pg (27.0-31.0) H 08/27/17 05:35 MCHC 34.3 g/dL (33.0-37.0) 08/27/17 05:35 RDW 13.1 % (11.5-14.5) 08/27/17 05:35 Plt Count 838 K/uL (130-400) H 08/27/17 05:35 MPV 9.9 fl (7.2-11.7) 08/26/17 06:20 Neut % (Auto) 60.0 % (50.0-75.0) 08/26/17 06:20 Lymph % (Auto) 22.0 % (20.0-40.0) 08/26/17 06:20 [place] % (Auto) 11.5 % (0.0-10.0) H 08/26/17 06:20 Eos % (Auto) 5.5 % (0.0-4.0) H 08/26/17 06:20 Baso % (Auto) 1.0 % (0.0-2.0) 08/26/17 06:20 Neut # (Auto) 6.3 K/uL (1.8-7.0) 08/26/17 06:20 Lymph # (Auto) 2.3 K/uL (1.0-4.3) 08/26/17 06:20 [place] # (Auto) 1.2 K/uL (0.0-0.8) H 08/26/17 06:20 Eos # (Auto) 0.6 K/uL (0.0-0.7) 08/26/17 06:20 Baso # (Auto) 0.1 K/uL (0.0-0.2) 08/26/17 06:20 ESR 79 mm/hr (0-20) H 08/25/17 05:50 PT 13.0 Seconds (9.8-13.1) 08/16/17 08:10 INR 1.2 (0.9-1.2) 08/16/17 08:10 APTT 40.1 Seconds (25.6-37.1) H 08/16/17 08:10 Sodium 137 mmol/l (132-148) 08/27/17 05:35 Potassium 3.6 MMOL/L (3.6-5.0) 08/27/17 05:35 Chloride 97 mmol/L (98-107) L 08/27/17 05:35 Carbon Dioxide 32 mmol/L (22-30) H 08/27/17 05:35 Anion Gap 12 (10-20) 08/27/17 05:35 BUN 9 mg/dl (9-20) 08/27/17 05:35 Creatinine 0.8 mg/dl (0.8-1.5) 08/27/17 05:35 Est GFR ( Amer) > 60 08/27/17 05:35 Est GFR (Non-Af Amer) > 60 08/27/17 05:35 POC Glucose (mg/dL) 129 mg/dL (65-110) H 08/21/17 10:33 Random Glucose 146 mg/dL (75-110) H 08/27/17 05:35 Serum Osmolality 284 mosm/kg (272-300) 08/26/17 06:20 Calcium 9.5 mg/dL (8.4-10.2) 08/27/17 05:35 Total Bilirubin 1.1 mg/dl (0.2-1.3) 08/25/17 05:50 AST 43 U/L (17-59) 08/25/17 05:50 ALT 31 U/L (21-72) 08/25/17 05:50 Alkaline Phosphatase 79 U/L (38-126) 08/25/17 05:50 Total Protein 6.8 G/DL (6.3-8.2) 08/25/17 05:50 Albumin 3.3 g/dL (3.5-5.0) L 08/25/17 05:50 Globulin 3.5 gm/dL (2.2-3.9) 08/25/17 05:50 Albumin/Globulin Ratio 0.9 (1.0-2.1) L 08/25/17 05:50 Procalcitonin < 0.05 NG/ML (0.19-0.49) L 08/10/17 19:07 TSH 3rd Generation 1.75 mIU/ML (0.46-4.68) 08/24/17 07:50 Urine Color Yellow (YELLOW) 08/24/17 16:00 Urine Clarity Slighty-cloudy (Clear) 08/24/17 16:00 Urine pH 5.0 (5.0-8.0) 08/24/17 16:00 Ur Specific May 1.015 (1.003-1.030) 08/24/17 16:00 Urine Protein Negative mg/dL (NEGATIVE) 08/24/17 16:00 Urine Glucose (UA) 50 mg/dL (Normal) 08/24/17 16:00 Urine Ketones Negative mg/dL (NEGATIVE) 08/24/17 16:00 Urine Blood Negative (NEGATIVE) 08/24/17 16:00 Urine Nitrate Negative (NEGATIVE) 08/24/17 16:00 Urine Bilirubin Negative (NEGATIVE) 08/24/17 16:00 Urine Urobilinogen 4.0 mg/dL (0.2-1.0) 08/24/17 16:00 Ur Leukocyte Esterase Neg Sadie/uL (Negative) 08/24/17 16:00 Ur Squamous Epith Cells < 1 /hpf (0-5) 08/24/17 16:00 Granular Casts (Auto) 1 /lpf (0-1) 08/24/17 16:00 Urine Osmolality 497 mosm/kg (300-1000) 08/26/17 07:00 Ur Random Sodium 111 mmol/L 08/24/17 16:00 Ur Random Potassium 39.4 mmol/L 08/24/17 16:00 Vancomycin Trough 7.6 ug/mL (5.0-10.0) 08/25/17 19:38 Blood Type A POSITIVE 08/10/17 11:35 Antibody Screen Negative 08/10/17 11:35 BBK History Checked No verified bt 08/10/17 11:35 - Hospital Course Hospital Course: 61 y/o male smoker w/ pmh of HTN admitted w/ gangrenous right 2nd and 3rd toes w / positive pseudomonas aeruginosa wound culture, now s/p percutaneous transluminal angioplasty & atherectomy of 100% occluded SFA w/ stenting of mid SFA and angioplasty w/ drug coated balloon of ostial SFA and s/p right transmetatarsal amputation. He also developed reactive thrombocytosis and given hydroxurea 500mg PO TID when pltlt ct >800. He was started on IV cipro and vanco. He was discharged to home and will continue vancomycin through PICC line once a day for 5 days at [facility]. Patient instructed to follow up w/ spray painter and in [facility]; appointment made for 09/04/17 3:40pm w/ Dr. Colby. Discharge Meds -Hydroxyurea 500mg PO BID, then 500mg QD when pltlt ct <750, discontinue when pltlt ct <500 -Stopped HCTZ (poss. causing hyponatremia) -Increased Cozaar to 100mg PO QD -Brillinta 90mg PO BID -Tramadol 50mg PO PRN -patient refused Nicotine patch -Coreg 25 mg PO -Atrovastatin 40 mg PO - Date & Time of H&P Date of H&P: 08/10/17 Time of H&P: 14:19 Discharge Exam - Head Exam Head Exam: ATRAUMATIC, NORMOCEPHALIC - Eye Exam Eye Exam: Normal appearance - ENT Exam ENT Exam: Mucous Membranes Moist - Respiratory Exam Respiratory Exam: Clear to PA & Lateral, NORMAL BREATHING PATTERN - Cardiovascular Exam Cardiovascular Exam: REGULAR RHYTHM, RRR, +S1, +S2 - GI/Abdominal Exam GI & Abdominal Exam: Normal Bowel Sounds, Soft. absent: Tenderness - Extremities Exam Additional comments: right foot wrapped, clean and dry - Neurological Exam Neurological exam: Alert, Oriented x3 - Skin Skin Exam: Dry, Intact, Warm Discharge Plan - Discharge Medications Prescriptions: Aspirin [Aspirin Chewable] 81 mg PO DAILY 3 Days #30 chew Carvedilol [Coreg] 25 mg PO Q12 #60 tab Hydroxyurea [Hydrea] 500 mg PO TID #20 cap Losartan [Cozaar] 100 mg PO DAILY 3 Days #30 tab Ticagrelor [Brilinta] 90 mg PO BID #60 tab - Follow Up Plan Condition: STABLE Disposition: HOME/ ROUTINE Instructions: Diabetes Diet , Peripherally-Inserted Central Catheter (DC), Gangrene (DC) Additional Instructions: outpatient infusion for IV antibiotic for 2 weeks, maxipime 2 gm. follow up with podiatry in 1 week Referrals: [facility] [place] [Outside] Casi Lynn MD [Medical Doctor] - Dandre Pham DPM [Staff Provider] -
== END 2017-08-28 12:46 | disposition home or self-care (01) | DRG 240 ==
LOC: H.ER 09:43 → H.ERHOLD 13:44 → H.MEDSURG1 14:56
PROVIDERS: ADMIT Family Medicine Geriatric Medicine; ATTEND Family Medicine Geriatric Medicine
PROC: B40DYZZ Plain Radiography of Aorta and Bilateral Lower Extremity Arteries using Other Contrast (ICD-10-PCS; 2017-08-12)
PROC: 0Y6M0ZB Detachment at Right Foot, Partial 2nd Ray, Open Approach (ICD-10-PCS; 2017-08-21)
PROC: 0Y6M0ZC Detachment at Right Foot, Partial 3rd Ray, Open Approach (ICD-10-PCS; 2017-08-21)
PROC: 0Y6M0ZD Detachment at Right Foot, Partial 4th Ray, Open Approach (ICD-10-PCS; 2017-08-21)
PROC: 0Y6M0ZF Detachment at Right Foot, Partial 5th Ray, Open Approach (ICD-10-PCS; 2017-08-21)
PROC: 0Y6M0Z9 Detachment at Right Foot, Partial 1st Ray, Open Approach (ICD-10-PCS; principal; 2017-08-21 07:45)
PROC: 02HV33Z Insertion of Infusion Device into Superior Vena Cava, Percutaneous Approach (ICD-10-PCS; 2017-08-26)
PROC: B518ZZA Fluoroscopy of Superior Vena Cava, Guidance (ICD-10-PCS; 2017-08-26)
PROC: 3E04329 Introduction of Other Anti-infective into Central Vein, Percutaneous Approach (ICD-10-PCS; 2017-08-26)
DX: E11.52 Type 2 diabetes mellitus with diabetic peripheral angiopathy with gangrene (principal); L97.518 Non-pressure chronic ulcer of other part of right foot with other specified severity; I70.261 Atherosclerosis of native arteries of extremities with gangrene, right leg; E87.1 Hypo-osmolality and hyponatremia; B96.5 Pseudomonas (aeruginosa) (mallei) (pseudomallei) as the cause of diseases classified elsewhere; E11.621 Type 2 diabetes mellitus with foot ulcer; I10 Essential (primary) hypertension; E78.5 Hyperlipidemia, unspecified; D47.3 Essential (hemorrhagic) thrombocythemia; F10.10 Alcohol abuse, uncomplicated; F17.210 Nicotine dependence, cigarettes, uncomplicated; Z79.82 Long term (current) use of aspirin

== ENCOUNTER 2017-09-05 18:36 | Emergency (ER) | payer OTHER ==
[2017-09-05 18:36] VITALS: BMI 22.8
[2017-09-05 18:45] VITALS: O2SAT 100
--- NOTE | 2017-09-05 19:13 | ED PDOC ---
Lower Extremity Pain/Injury Time Seen by Provider: 09/05/17 18:57 Chief Complaint (Nursing): Lower Extremity Problem/Injury Chief Complaint (Provider): Foot pain History Per: Patient Additional Complaint(s): 61 yo male, PMH of HTN, DM and High Cholesterol , presents to ED with complaints of worsening foot pain s/p Transmetatarsal amputation of the L foot on August 20. Pt reports that he has yet to follow up with podiatry bc he keeps missing his clinic appointments. Pt additionally missed his antibiotic infusion this afternoon, Pt unsure of what antibiotic he receives? Past Medical History Reviewed: Historical Data, Nursing Documentation, Vital Signs Vital Signs: Last Vital Signs Temp 98.2 F 09/05/17 18:41 Pulse 88 09/05/17 18:41 Resp 20 09/05/17 18:41 BP 149/76 09/05/17 18:41 Pulse Ox 100 09/05/17 18:41 - Medical History PMH: Diabetes, Gall Bladder Disease, HTN, Hypercholesterolemia, Pneumonia Denies: Chronic Kidney Disease - Family History Family History: States: Unknown Family Hx - Living Arrangements Living Arrangements: With Family - Social History Current smoker - smoking cessation education provided: No Alcohol: Social Drugs: Denies - Home Medications Home Medications: Ambulatory Orders Medication Instructions Recorded RX: Atorvastatin [Lipitor] 40 mg PO DAILY 08/10/17 RX: MetFORMIN ER [Glucophage XR] 500 mg PO QPM 08/10/17 RX: Carvedilol [Coreg] 25 mg PO Q12 #60 tab 08/28/17 RX: Hydroxyurea [Hydrea] 500 mg PO TID #20 cap 08/28/17 RX: Losartan [Cozaar] 100 mg PO DAILY 3 Days #30 tab 08/28/17 RX: HCTZ/Losartan Potassium 1 tab PO DAILY 09/02/17 [Hyzaar 12.5 mg-50 mg] - Allergies Allergies/Adverse Reactions: Allergies Allergy/AdvReac Type Severity Reaction Status Date / Time No Known Allergies Allergy Verified 09/05/17 18:41 Review of Systems ROS Statement: Except As Marked, All Systems Reviewed And Found Negative Musculoskeletal: Positive for: Foot Pain Physical Exam - Reviewed Nursing Documentation Reviewed: Yes Vital Signs Reviewed: Yes - Physical Exam Appears: Positive for: Well, Non-toxic, No Acute Distress Head Exam: Positive for: ATRAUMATIC, NORMAL INSPECTION, NORMOCEPHALIC Skin: Positive for: Normal Color, Warm, DRY Eye Exam: Positive for: EOMI, Normal appearance, PERRL ENT: Positive for: Normal ENT Inspection Neck: Positive for: Normal, Painless ROM Cardiovascular/Chest: Positive for: Regular Rate, Rhythm Respiratory: Positive for: CNT, Normal Breath Sounds Gastrointestinal/Abdominal: Positive for: Normal Exam, Soft Back: Positive for: Normal Inspection Extremity: Positive for: Other (deferred to podiatry) Neurologic/Psych: Positive for: Alert, Oriented - ECG O2 Sat by Pulse Oximetry: 100 Medical Decision Making Medical Decision Making: Diagnostics ordered Pt medicated with Percocet for pain Podiatry consult ordered Case endorsed to SHAHLA Pond pending consult Disposition - Clinical Impression Clinical Impression: Foot pain - Patient ED Disposition Is Patient to be Admitted: Transfer of Care - Disposition Disposition: Transfer of Care Disposition Time: 19:58 Condition: STABLE Forms: [employer] (Nauruan)
[2017-09-05] MEDS ORDERED: Oxycodone/Acetaminophen 5/325 mg Tab PO STA (19:34)
--- NOTE | 2017-09-05 20:12 | CP.PCM.CON ---
History of Present Illness - History of Present Illness History of Present Illness: Podiatry Consult Note - Dr. Pham 52M PMHx HTN, HLD, DM seen and evaluated in ED for pain in right foot s/p TMA ( DOS 08/21/17). [id number] present at bedside. Patient reports 10/10 pain in right foot surgical site. Patient reports pain is worse with elevation, relieved with dependency. Patient states he has kept the dressing clean/dry/ intact; last post op visit was Thursday, 09/04. Patient admits to FWB on his right foot with the assistance of crutches. Patient states that he has been compliant with IV abx treatment. Denies N/V/F/D/C/SOB. PMH: HTN, HLD, Prediabetes PSH: Lap CCY Allergies: NKDA Smokin-1.5ppd/20yrs Alcohol: 4 beers/3 shots almost every day Drugs: Denies Review of Systems - Review of Systems All systems: reviewed and no additional remarkable complaints except (as per HPI ) Past Patient History - Past Medical History & Family History Past Medical History?: Yes - Past Social History Alcohol: Social Drugs: Denies - CARDIAC Hx Hypercholesterolemia: Yes Hx Hypertension: Yes - PULMONARY Hx Pneumonia: Yes - NEUROLOGICAL Hx Neurological Disorder: No - HEENT Hx HEENT Problems: No - RENAL Hx Chronic Kidney Disease: No - ENDOCRINE/METABOLIC Hx Endocrine Disorders: Yes - HEMATOLOGICAL/ONCOLOGICAL Hx Blood Transfusions: No - INTEGUMENTARY Hx Dermatological Problems: No - MUSCULOSKELETAL/RHEUMATOLOGICAL Hx Musculoskeletal Disorders: Yes - GASTROINTESTINAL Hx Gall Bladder Disease: Yes - GENITOURINARY/GYNECOLOGICAL Hx Genitourinary Disorders: No - PSYCHIATRIC Hx Emotional Abuse: No Hx Physical Abuse: No - SURGICAL HISTORY Other/Comment: Gallstones removed. Left arm surgery. fluid removed from his lung - ANESTHESIA Hx Malignant Hyperthermia: No Meds Allergies/Adverse Reactions: Allergies Allergy/AdvReac Type Severity Reaction Status Date / Time No Known Allergies Allergy Verified 09/05/17 18:41 Physical Exam - Constitutional Appears: Well, Non-toxic, No Acute Distress - Extremities Exam Additional comments: Right Lower Extremity focused exam: Vasc: DP and PT pulse 1/4 noted, Temp gradient cool to cool from proximal to distal, no edema or erythema noted. Neuro: Protective sensation grossly diminished Derm: No drainage noted at the TMA site, sutures intact, no signs of wound dehiscence, no clinical signs of infection MSK: s/p transmetatarsal amputation. Pain on palpation noted to incision and distal flap. Muscle strength 5/5 for all dorsiflexors, plantarflexors, inverters , and everters. Pain upon long periods of LE elevation. - Neurological Exam Neurological exam: Alert, Oriented x3 - Psychiatric Exam Psychiatric exam: Normal Affect, Normal Mood Results - Vital Signs Recent Vital Signs: Last Vital Signs Temp 98.2 F 09/05/17 18:41 Pulse 88 09/05/17 18:41 Resp 20 09/05/17 18:41 BP 149/76 09/05/17 18:41 Pulse Ox 100 09/05/17 20:03 - Labs Result Diagrams: 09/05/17 21:07 09/05/17 21:07 Assessment & Plan - Assessment and Plan (Free Text) Assessment: 61M with pain in right foot s/p right transmetatarsal amputation (DOS: 08/21/17), likely secondary to post operative pain and ischemia Plan: Patient seen and evaluated Discussed with attending, Dr. Pham Amputation site appears stable at this time Pain likely secondary to ischemic pain and post operative changes Local wound care performed - saline cleanse, betadine, DSD, JESSICA Advised patient to remain NWB on RLE with the assistance of crutches; WB to heel if needed Patient to follow up with Dr. Pham in clinic Thursday09/14/17 Pain control per ED Stable for dc per podiatry Thank you for the consult
[2017-09-05] MEDS ORDERED: Cefepime 1 GM in Sodium Chloride 0.9% 100 ML IVPB STA (20:21)
[2017-09-05 21:12] LABS: BASO # 0.1 K/uL (0.0-0.2); BASO % 0.6 % (0.0-2.0); EOS # 0.4 K/uL (0.0-0.7); EOS % 2.9 % (0.0-4.0); HEMOGLOBIN 12.3 g/dL (12.0-18.0); LYMPH # 1.9 K/uL (1.0-4.3); LYMPH % 13.9 % (20.0-40.0); MEAN CELL VOLUME 92.8 fl (80.0-94.0); MEAN CORPUSCULAR HEMOGLOBIN 31.9 pg (27.0-31.0); MEAN CORPUSCULAR HGB CONC 34.4 g/dL (33.0-37.0); MEAN PLATELET VOLUME 8.4 fl (7.2-11.7); MONO # 0.7 K/uL (0.0-0.8); NEUT # 10.8 K/uL (1.8-7.0); NEUT % 77.6 % (50.0-75.0); NRBC % 0.2 % (0.0-0.0); RBC 3.84 Mil/uL (4.40-5.90); RED CELL DISTRIBUTION WIDTH 13.3 % (11.5-14.5); WHITE BLOOD COUNT 13.9 K/uL (4.8-10.8)
[2017-09-05 21:28] LABS: ALB/GLOB RATIO 1.1 (1.0-2.1); ALBUMIN 4.2 g/dL (3.5-5.0); ALT/SGPT 21 U/L (21-72); AST/SGOT 32 U/L (17-59); BLOOD UREA NITROGEN 27 mg/dl (9-20); CALCIUM 9.6 mg/dL (8.4-10.2); GFR AFRICAN-AMERICAN > 60; GFR NON-AFRICAN AMERICAN 52
--- NOTE | 2017-09-05 22:09 | ED PDOC ---
- Laboratory Results Result Diagrams: 09/05/17 21:07 09/05/17 21:07 - ECG O2 Sat by Pulse Oximetry: 100 Medical Decision Making Medical Decision Making: Case endorsed to me from KENAN Phillips at 1999 pending podiatry consult and labs. Patient seen and evaluated by podiatry resident Dr. Neyda Rowley, she changed the patient's dressing. As per podiatry resident, patient is cleared for outpatient follow up. Patient's missed dose of cefepime, which he was supposed to get today was ordered and is currently infusing. Patient is sitting comfortably, smiling, in no acute distress with no other complaints at this time. Patient states that percocet helped for his pain, he no longer has any tramadol and states that it did not alleavite his pain, is requesting for a rx for percocet. [place] [employer] reveals only tramadol as a Rx for the past year, will provide the patient with a Rx for percocet. Advised patient of the risk of tolerance and addiction related to taking narcotic medication, which the patient verbalize understanding of. Considering that the patient is afebrile, patient is safe for outpatient d/c. He is to f/u with podiatry on 09/14/17. Patient states that he verbalize understanding of instructions and follow up. Disposition - Clinical Impression Clinical Impression: Foot pain - POA Present On Arrival: None - Disposition Disposition: Routine/Home Disposition Time: 22:00 Condition: STABLE Additional Instructions: Thank you for letting us take care of you today. You were treated for foot pain , s/p TMA. The emergency medical care you received today was directed towards the acute presenting symptoms. Return to the Emergency Department at any time if symptoms worsen, do not improve, or if any other problems arise. Please follow up with podiatry as directed by podiatry resident for re- evaluation and follow up. Bring any paperwork you were given at discharge with you along with any medications to your follow up visit. Our treatment cannot replace ongoing medical care by a primary care provider (PCP) outside of the emergency department. Thank you for allowing the [facility] team to be part of your care today. Prescriptions: oxyCODONE/Acetaminophen [Percocet 5/325 mg Tab] 1 ea PO TID PRN #15 tab PRN Reason: Pain, Moderate (4-7) Instructions: Amputation, General Overview Forms: [employer] (Haitian) - PA / CAN FILLER / Resident Statement MD/DO has reviewed & agrees with the documentation as recorded.
[2017-09-06 08:12] VITALS: BP 146/80; PULSE 90; RESP 18; TEMP 98.1
--- NOTE | 2017-09-06 13:19 | RAD ---
Date of service: 09/05/2017 PROCEDURE: Right Foot Radiographs. HISTORY: pain s/p tma COMPARISON: None. FINDINGS: BONES: Status post transmetatarsal amputation. No acute fracture. Postsurgical soft tissue changes seen at the anterior aspect of 4th. JOINTS: Normal. SOFT TISSUES: Normal. OTHER FINDINGS: None. IMPRESSION: Transmetatarsal amputation.
== END 2017-09-05 22:40 | disposition home or self-care (01) ==
LOC: H.ER 18:36
DX: M79.672 Pain in left foot (principal); Z89.432 Acquired absence of left foot; E11.9 Type 2 diabetes mellitus without complications; E78.00 Pure hypercholesterolemia, unspecified; I10 Essential (primary) hypertension; Z79.84 Long term (current) use of oral hypoglycemic drugs; Z98.890 Other specified postprocedural states
CPT/HCPCS: 73630; 80053; 85025; 96374; 99283; J0692

== ENCOUNTER 2017-09-14 13:31 | Observation (INO) | payer OTHER ==
[2017-09-14 13:32] VITALS: BMI 22.8
[2017-09-14] MEDS ORDERED: Sodium Chloride 0.9% 1,000 ML IV STA (15:11)
--- NOTE | 2017-09-14 15:15 | ED PDOC ---
HPI: General Adult Time Seen by Provider: 09/14/17 15:02 Chief Complaint (Nursing): Syncope Chief Complaint (Provider): Episode of low BP History Per: Patient History/Exam Limitations: no limitations Additional Complaint(s): Pt states he was outside when he was trying to sit on wall, his friend tried to help him up higher but neither could move. Denies CP, SOB, palpitations, ELKINS. Pt had routine Podiatry appt earlier today. Sister states patient has not eating well because his tooth has been hurting. Past Medical History Reviewed: Nursing Documentation, Vital Signs Vital Signs: Last Vital Signs Temp 98.3 F 09/15/17 08:45 Pulse 78 09/15/17 10:22 Resp 20 09/15/17 08:45 BP 111/62 09/15/17 10:22 Pulse Ox 99 09/15/17 08:45 - Medical History PMH: Diabetes, Gall Bladder Disease, HTN, Hypercholesterolemia, Pneumonia Denies: Chronic Kidney Disease - Family History Family History: States: Unknown Family Hx - Social History Current smoker - smoking cessation education provided: No Alcohol: None - Home Medications Home Medications: Ambulatory Orders Medication Instructions Recorded Atorvastatin [Lipitor] 40 mg PO DAILY 08/10/17 MetFORMIN ER [Glucophage XR] 500 mg PO QPM 08/10/17 Carvedilol [Coreg] 25 mg PO Q12 #60 tab 08/28/17 Hydroxyurea [Hydrea] 500 mg PO TID #20 cap 08/28/17 oxyCODONE/Acetaminophen [Percocet 1 ea PO TID PRN #15 tab 09/05/17 5/325 mg Tab] Clindamycin [Cleocin] 300 mg PO Q6 #40 cap 09/15/17 Losartan [Cozaar] 50 mg PO DAILY #30 tab 09/15/17 Sulfamethoxazole/Trimethoprim 1 tab PO Q12 #14 tab 09/15/17 [Bactrim DS 800 mg-160 mg] - Allergies Allergies/Adverse Reactions: Allergies Allergy/AdvReac Type Severity Reaction Status Date / Time No Known Allergies Allergy Verified 09/05/17 18:41 Review of Systems Constitutional: Negative for: Fever, Chills Cardiovascular: Negative for: Chest Pain, Palpitations Respiratory: Negative for: Cough, Shortness of Breath Gastrointestinal: Negative for: Nausea, Vomiting, Abdominal Pain, Diarrhea Skin: Negative for: Rash, Lesions Neurological: Negative for: Weakness, Numbness, Incoordination, Change in Speech , Confusion, Seizures, Altered Mental Status, Headache, Dizziness Physical Exam - Reviewed Nursing Documentation Reviewed: Yes Vital Signs Reviewed: Yes - Physical Exam Appears: Positive for: Well, No Acute Distress Head Exam: Positive for: ATRAUMATIC, NORMAL INSPECTION Skin: Positive for: Normal Color, Warm, Dry Eye Exam: Positive for: Normal appearance, EOMI, PERRL Cardiovascular/Chest: Positive for: Regular Rate, Rhythm Respiratory: Positive for: Normal Breath Sounds Gastrointestinal/Abdominal: Positive for: Normal Exam, Bowel Sounds, Soft. Negative for: Tenderness Extremity: Positive for: Normal ROM Neurologic/Psych: Positive for: Alert, precast molder II-XII, Oriented. Negative for: Motor/Sensory Deficits, Aphasia, Facial Droop - Laboratory Results Result Diagrams: 09/15/17 05:55 09/15/17 12:31 - ECG O2 Sat by Pulse Oximetry: 99 Medical Decision Making Medical Decision Makin yo male with decreased PO. - labs - EKG - CXR - IVF - orthostatics 16:50 Podiatry resident paged. Accession No. : [id number] Patient Name / ID : TONY OCONNOR / [id number] Exam Date : 09/14/2017 17:42:48 ( Approved ) Study Comment : Sex / Age : M / 61Y Creator : cheng shaw Dictator : Teofilo Wang MD Rum Processing Operator : English Drawer : Teofilo Wang MD Approver2 : Report Date : 09/14/2017 17:56:56 My Comment : Date of service: 09/14/2017 PROCEDURE: Right Foot Radiographs. HISTORY: s/p TMA COMPARISON: 09/05/2017 FINDINGS: BONES: Expected postoperative changes status post transmetatarsal ectomy. JOINTS: Normal. SOFT TISSUES: NormalThe degree of soft tissue swelling apparent previously has improved. OTHER FINDINGS: None. IMPRESSION: Satisfactory postoperative status. Accession No. : [id number] Patient Name / ID : TONY OCONNOR / [id number] Exam Date : 09/14/2017 18:53:30 ( Approved ) Study Comment : Sex / Age : M / 61Y Creator : Laura Newton MD Dictator : Laura Newton MD Rum Processing Operator : English Drawer : Laura Newton MD Approver2 : Report Date : 09/15/2017 10:24:22 My Comment : Date of service: 09/14/2017 PROCEDURE: CT MAXILLOFACIAL BONES WITH CONTRAST HISTORY: R upper molar pain, r/o abscess COMPARISON: None. TECHNIQUE: Contiguous axial CT images of the maxillofacial bones were obtained following administration of IV contrast. Coronal and sagittal reformats were generated. Intravenous contrast Dose: 50 mL Visipaque 320 Radiation dose: Total exam DLP = 831.34 mGy-cm. This CT exam was performed using one or more of the following dose reduction techniques: Automated exposure control, adjustment of the mA and/or kV according to patient size, and/or use of iterative reconstruction technique. FINDINGS: NASAL BONES: Unremarkable. ORBITS: Unremarkable. PARANASAL SINUSES/ MASTOIDS: There is mild mucosal thickening in the right maxillary sinus and osteoneogenesis in bilateral maxillary sinuses. The remaining included paranasal sinuses are clear. MAXILLA: There is poor dentition with multiple missing PE in the maxilla. There is periapical lucency in the right lateral in size for. There are periapical lucencies and abnormal soft tissue in the right maxillary molars with irregular bony margin. There is also significant right lateral pre maxillary soft tissue swelling. MANDIBLE/ TEMPOROMANDIBULAR JOINTS: Unremarkable. SKULL BASE: Unremarkable. TEMPORAL BONES: Middle ears and mastoid grossly unremarkable. OTHER FINDINGS: None. IMPRESSION: 1. Findings are most compatible with a right maxillary molar are periapical abscess with phlegmonous changes extending into the pre maxillary soft tissues. 2. Periapical abscess in the right lateral incisor. 21:[address] Phelps ([facility] resident), states leukocytosis probabyl not secondary to dental infection. Recommends dose of Ampicillin and d/c home with Rx Amoxicillin 500 mg tid, can follow-up in [facility] Clinic tomorrow. Disposition - Clinical Impression Clinical Impression: Leukocytosis, UTI (urinary tract infection), Dental infection - Patient ED Disposition Is Patient to be Admitted: Yes - Disposition Disposition Time: 22:13 Condition: STABLE - Pt Status Changed To: Hospital Disposition Of: Observation - POA Present On Arrival: None
[2017-09-14 16:06] LABS: ALBUMIN 3.9 g/dL (3.5-5.0); CALCIUM 9.4 mg/dL (8.4-10.2)
[2017-09-14 16:09] LABS: BASO # 0.1 K/uL (0.0-0.2); BASO % 0.5 % (0.0-2.0); EOS # 0.2 K/uL (0.0-0.7); EOS % 0.7 % (0.0-4.0); HEMOGLOBIN 10.9 g/dL (12.0-18.0); LYMPH % 8.1 % (20.0-40.0); MEAN CELL VOLUME 93.1 fl (80.0-94.0); MEAN CORPUSCULAR HEMOGLOBIN 31.4 pg (27.0-31.0); MEAN CORPUSCULAR HGB CONC 33.7 g/dL (33.0-37.0); MEAN PLATELET VOLUME 9.5 fl (7.2-11.7); MONO # 2.6 K/uL (0.0-0.8); MONO % 10.6 % (0.0-10.0); NEUT # 19.7 K/uL (1.8-7.0); NEUT % 80.1 % (50.0-75.0); PLATELET COUNT 439 K/uL (130-400); RBC 3.47 Mil/uL (4.40-5.90); RED CELL DISTRIBUTION WIDTH 13.6 % (11.5-14.5); WHITE BLOOD COUNT 24.5 K/uL (4.8-10.8)
--- NOTE | 2017-09-14 16:11 | RAD ---
Date of service: 09/14/2017 HISTORY: Episode of hypotension COMPARISON: 08/10/2017. TECHNIQUE: Chest PA and lateral FINDINGS: LUNGS: Hyperinflation, manifestations of COPD. No active pulmonary disease. PLEURA: No significant pleural effusion identified. No pneumothorax apparent. CARDIOVASCULAR: No radiographic findings to suggest acute or significant cardiovascular disease. OSSEOUS STRUCTURES: No significant abnormalities. VISUALIZED UPPER ABDOMEN: Normal. OTHER FINDINGS: None. IMPRESSION: No active disease. No significant interval change compared to the prior examination(s).
[2017-09-14 16:26] LABS: INR 1.3 (0.9-1.2); PARTIAL THROMBOPLASTIN TIME 36.6 Seconds (25.6-37.1); PROTHROMBIN TIME 14.7 Seconds (9.8-13.1)
[2017-09-14] MEDS ORDERED: Clindamycin 600mg/50ml D5W 600 MG/50 ML VIAL IVPB STA (17:22)
--- NOTE | 2017-09-14 18:00 | CP.PCM.CON ---
History of Present Illness - History of Present Illness History of Present Illness: Podiatry Consult Note for Dr. Pham: 61 y/o male, with PMHx of DM, HTN, seen and evaluated for right TMA wound dehiscence. Patient is 3 weeks s/p TMA (DOS: 08/21/17) and [facility] He states that he had an appointment today and was seen by Dr. Pham. Patient denies any other events, however, he is accompanied by his sister and son and they note that he passed out in the afternoon which prompted them to bring him to the emergency room. His sister notes that he has also been trying to make an appointment with his dentist due to severe tooth pain. Patient states that he has been eating significantly less and losing weight due to tooth pain. Patient denies any other pedal complaints at this time. Denies N/V/F/SOB/CP. PMHx: DM, HTN PSHx: Right TMA (08/21/17), cholecystectomy Social: Current tobacco use ALL: NKDA Review of Systems - Review of Systems Review of Systems: As per HPI Past Patient History - Past Medical History & Family History Past Medical History?: Yes - Past Social History Alcohol: None - CARDIAC Hx Hypercholesterolemia: Yes Hx Hypertension: Yes - PULMONARY Hx Pneumonia: Yes - NEUROLOGICAL Hx Neurological Disorder: No - HEENT Hx HEENT Problems: No - RENAL Hx Chronic Kidney Disease: No - ENDOCRINE/METABOLIC Hx Endocrine Disorders: Yes - HEMATOLOGICAL/ONCOLOGICAL Hx Blood Transfusions: No - INTEGUMENTARY Hx Dermatological Problems: No - MUSCULOSKELETAL/RHEUMATOLOGICAL Hx Musculoskeletal Disorders: Yes - GASTROINTESTINAL Hx Gall Bladder Disease: Yes - GENITOURINARY/GYNECOLOGICAL Hx Genitourinary Disorders: No - PSYCHIATRIC Hx Emotional Abuse: No Hx Physical Abuse: No Hx Substance Use: No - SURGICAL HISTORY Other/Comment: Gallstones removed. Left arm surgery. fluid removed from his lung - ANESTHESIA Hx Malignant Hyperthermia: No Meds Allergies/Adverse Reactions: Allergies Allergy/AdvReac Type Severity Reaction Status Date / Time No Known Allergies Allergy Verified 09/05/17 18:41 - Medications Medications: Current Medications Sodium Chloride (Sodium Chloride 0.9%) 1,000 mls @ 250 mls/hr IV .Q4H STA Stop: 09/14/17 19:10 Clindamycin Phosphate (Cleocin) 600 mg in 50 mls @ 50 mls/hr IVPB STAT STA PRN Reason: Protocol Stop: 09/14/17 18:21 Physical Exam - Constitutional Appears: Well, Non-toxic, No Acute Distress - Head Exam Head Exam: ATRAUMATIC, NORMOCEPHALIC - Extremities Exam Additional comments: RLE focused exam: Vascular: DP non-palpable due to dorsal incision site. PT nonpalpable, TG warm to cool, no evidence of edema Ortho: Right TMA, no pain or tenderness to palpation of surgical incision site Neuro: gross sensation intact, protective sensation diminished Derm: Wound dehiscence noted to dorsum of right foot. Some sutures remain at the TMA site and appear well coapted. No erythema, no cellulitis, no malodor, no tunneling, no tracking, no clinical evidence of infection. Xerosis noted to plantar aspect of right foot. - Neurological Exam Neurological exam: Alert, Oriented x3 - Psychiatric Exam Psychiatric exam: Normal Affect, Normal Mood Results - Vital Signs Recent Vital Signs: Last Vital Signs Temp 99.6 F 09/14/17 13:32 Pulse 97 H 09/14/17 13:32 Resp 18 09/14/17 13:32 BP 126/69 09/14/17 13:32 Pulse Ox 99 09/14/17 16:53 - Labs Result Diagrams: 09/14/17 15:45 09/14/17 15:45 Labs: Laboratory Results - last 24 hr 09/14/17 09/14/17 09/14/17 13:46 15:34 15:45 WBC 24.5 H D RBC 3.47 L Hgb 10.9 L Hct 32.3 L MCV 93.1 MCH 31.4 H MCHC 33.7 RDW 13.6 Plt Count 439 H D MPV 9.5 Neut % (Auto) 80.1 H Lymph % (Auto) 8.1 L Mcmullen % (Auto) 10.6 H Eos % (Auto) 0.7 Baso % (Auto) 0.5 Neut # (Auto) 19.7 H Lymph # (Auto) 2.0 Mcmullen # (Auto) 2.6 H Eos # (Auto) 0.2 Baso # (Auto) 0.1 PT INR APTT Sodium Potassium Chloride Carbon Dioxide Anion Gap BUN Creatinine Est GFR ( Amer) Est GFR (Non-Af Amer) POC Glucose (mg/dL) 179 H 175 H Random Glucose Calcium Total Bilirubin AST ALT Alkaline Phosphatase Total Protein Albumin Globulin Albumin/Globulin Ratio 09/14/17 09/14/17 15:45 15:45 WBC RBC Hgb Hct MCV MCH MCHC RDW Plt Count MPV Neut % (Auto) Lymph % (Auto) Mcmullen % (Auto) Eos % (Auto) Baso % (Auto) Neut # (Auto) Lymph # (Auto) Mcmullen # (Auto) Eos # (Auto) Baso # (Auto) PT 14.7 H INR 1.3 H APTT 36.6 Sodium 132 Potassium 4.8 Chloride 95 L Carbon Dioxide 22 Anion Gap 20 BUN 26 H Creatinine 1.5 Est GFR ( Amer) 58 Est GFR (Non-Af Amer) 48 POC Glucose (mg/dL) Random Glucose 168 H Calcium 9.4 Total Bilirubin 1.8 H AST 38 ALT 23 Alkaline Phosphatase 71 Total Protein 7.9 Albumin 3.9 Globulin 3.9 Albumin/Globulin Ratio 1.0 Assessment & Plan - Assessment and Plan (Free Text) Assessment: 61 y/o male, with PMHx of DM, HTN, seen and evaluated for right TMA wound dehiscence. Plan: Patient examined and evaluated with all questions and concerns addressed Plan discussed in detail with Dr. Pham Patient chart and labs reviewed; afebrile, WBC 24.5 Right foot x-rays ordered and reviewed; no evidence of soft tissue emphysema Right foot dressed with DSD, Kerlix, and JESSICA WBAT in surgical shoe Patient to continue following up in podiatry clinic Thank you for the consult. - Date & Time Date: 09/14/17 Time: 18:28
--- NOTE | 2017-09-14 18:13 | RAD ---
Date of service: 09/14/2017 PROCEDURE: Right Foot Radiographs. HISTORY: s/p TMA COMPARISON: 09/05/2017 FINDINGS: BONES: Expected postoperative changes status post transmetatarsal ectomy. JOINTS: Normal. SOFT TISSUES: NormalThe degree of soft tissue swelling apparent previously has improved. OTHER FINDINGS: None. IMPRESSION: Satisfactory postoperative status.
[2017-09-14 18:24] LABS: VENOUS BLOOD GAS BASE EXCESS 0.8 mmol/L (0.0-2.0); VENOUS BLOOD GAS PCO2 46 mmHg (40-60); VENOUS BLOOD GAS PO2 23 mm/Hg (30-55); VENOUS BLOOD PH 7.37 (7.32-7.43)
[2017-09-14 18:55] LABS: ANISOCYTOSIS MODERATE; BANDS 2 % (0-2); LYMPHOCYTE 12 % (20-50); MONOCYTE 14 % (0-10); MYELOCYTE 1 % (0-0); NEUTROPHIL 70 % (42-75); PLATELET ESTIMATE NORMAL (NORMAL); REACTIVE LYMPHOCYTES 1 % (0-0); TOTAL CELLS COUNTED 100
[2017-09-14 18:56] LABS: POIKILOCYTOSIS SLIGHT; SMUDGE CELLS PRESENT
[2017-09-14 21:46] LABS: BASO # 0.1 K/uL (0.0-0.2); BASO % 0.6 % (0.0-2.0); EOS # 0.2 K/uL (0.0-0.7); EOS % 0.9 % (0.0-4.0); HEMOGLOBIN 11.3 g/dL (12.0-18.0); LYMPH # 1.9 K/uL (1.0-4.3); LYMPH % 9.3 % (20.0-40.0); MEAN CELL VOLUME 92.6 fl (80.0-94.0); MEAN CORPUSCULAR HEMOGLOBIN 31.4 pg (27.0-31.0); MEAN CORPUSCULAR HGB CONC 33.9 g/dL (33.0-37.0); MEAN PLATELET VOLUME 9.5 fl (7.2-11.7); MONO % 9.6 % (0.0-10.0); NEUT # 16.5 K/uL (1.8-7.0); NEUT % 79.6 % (50.0-75.0); RBC 3.6 Mil/uL (4.40-5.90); WHITE BLOOD COUNT 20.7 K/uL (4.8-10.8)
[2017-09-14 21:59] LABS: SQUAMOUS EPITHIAL 1 /hpf (0-5); URINE BACTERIA RARE (<OCC); URINE BILIRUBIN NEGATIVE (NEGATIVE); URINE BLOOD NEGATIVE (NEGATIVE); URINE CLARITY SLIGHTY-CLOUDY (Clear); URINE COLOR YELLOW (YELLOW); URINE GLUCOSE (UA) NEG (Normal); URINE LEUKOCYTE ESTERASE MOD Leu/uL (Negative); URINE PROTEIN NEGATIVE (NEGATIVE)
[2017-09-14] MEDS ORDERED: Ciprofloxacin 400mg/200ml D5W 400 MG/200 ML BAG IV STA (22:09)
[2017-09-14] MEDS ORDERED: Ciprofloxacin 400mg/200ml D5W 400 MG/200 ML BAG IVPB ONE (22:18)
--- NOTE | 2017-09-14 23:37 | CP.PCM.HP ---
History of Present Illness - History of Present Illness History of Present Illness: Hx taken from patient and medical records Full code PMD: NHC 61 y/o M with PMHx of PVD and Prediabetes presented to ER with c/o near syncope episode. As per patient he doesnt remember the episode but denies LOC or fall. Pt was recently admitted 1 m/a to [facility] w/ gangrenous right 2nd and 3rd toes w/ WCx positive for pseudomonas aeruginosa. He is now /p percutaneous transluminal angioplasty & atherectomy of 100% occluded SFA w/ stenting of mid SFA and angioplasty w/ drug coated balloon of ostial SFA and s/p right transmetatarsal amputation. On that hosp admission he also developed reactive thrombocytosis and was started on hydroxurea 500 mg PO TID when plt ct >800. He was treated with IV cipro and vanco. He was discharged home and continued in vancomycin through PICC line(in right arm) once a day for 5 days at [facility]. He completed outpatient IV antibiotic/Maxipime 2 gm about 2 weeks ago, and PICC line was removed at [facility]. Then patient had an ER visit on 09/05/17 due to increased pain in surgical site, was seen by podiatry team and cleared for dc home on percocet for pain control and to f/u with PMD and Podiatry as outpatient. On ED patient was c/o of persistent tooth pain and family discussed with ER attendant that because of this situation his PO intake is decreased. When we evaluate patient at ER, patient is sleepy but easily arousable, follow commands and seems in not acute distress. States tooth pain resolved and that he dosnt remember anything about the episode of nearsyncope. Denies CP, palpitations. Patient not cooperative with examination. ED course Labs remarkable for WBC 24.5, Plt 448, BUN/Creat 26/1.5, GFR 58 VBG unremarkable including normal Lactate UA: Increased WBC, RBCs, Specific [place] and LE Foot Xray: Satisfactory post op status CXR: No acute disease Maxilfacial CT: Suspicious for dental abscess(Please see full report). EM attendant spoke with Dr. Phelps ([facility] [place] champion of sustainable design and stated patient could be DC home with PO amoxicillin. Dental infection unlikely cause of leukocytosis in the patient Evaluated by Podiatry at ER IV NS 1L at 250 mls/hr Cipro and Clinda IV once PMH: PVD, HTN, HLD, Prediabetes PSH: Lap CCY, SFA stent Allergies: NKDA Smokin-1.5ppd/20yrs Alcohol: 4 beers/3 shots almost every day Drugs: Denies Present on Admission - Present on Admission Any Indicators Present on Admission: No Review of Systems - Review of Systems All systems: reviewed and no additional remarkable complaints except (Those described on HPI) Past Patient History - Past Medical History & Family History Past Medical History?: Yes - Past Social History Smoking Status: Heavy Smoker > 10 Cigarettes Daily Alcohol: None - CARDIAC Hx Hypercholesterolemia: Yes Hx Hypertension: Yes - PULMONARY Hx Pneumonia: Yes - NEUROLOGICAL Hx Neurological Disorder: No - HEENT Hx HEENT Problems: No - RENAL Hx Chronic Kidney Disease: No - ENDOCRINE/METABOLIC Hx Endocrine Disorders: Yes - HEMATOLOGICAL/ONCOLOGICAL Hx Blood Transfusions: No - INTEGUMENTARY Hx Dermatological Problems: No - MUSCULOSKELETAL/RHEUMATOLOGICAL Hx Musculoskeletal Disorders: Yes - GASTROINTESTINAL Hx Gall Bladder Disease: Yes - GENITOURINARY/GYNECOLOGICAL Hx Genitourinary Disorders: No - PSYCHIATRIC Hx Emotional Abuse: No Hx Physical Abuse: No Hx Substance Use: No - SURGICAL HISTORY Other/Comment: Gallstones removed. Left arm surgery. fluid removed from his lung - ANESTHESIA Hx Malignant Hyperthermia: No Meds Allergies/Adverse Reactions: Allergies Allergy/AdvReac Type Severity Reaction Status Date / Time No Known Allergies Allergy Verified 09/05/17 18:41 Physical Exam - Constitutional Appears: Non-toxic - Head Exam Head Exam: ATRAUMATIC, NORMAL INSPECTION - Eye Exam Eye Exam: EOMI, PERRL - ENT Exam ENT Exam: Mucous Membranes Moist, Normal Oropharynx - Neck Exam Neck exam: Positive for: Full Rom. Negative for: Tenderness - Respiratory Exam Respiratory Exam: Clear to Auscultation Bilateral, NORMAL BREATHING PATTERN. absent: Decreased Breath Sounds, Rales, Wheezes, Respiratory Distress - Cardiovascular Exam Cardiovascular Exam: REGULAR RHYTHM, +S1, +S2. absent: Gallop - GI/Abdominal Exam GI & Abdominal Exam: Normal Bowel Sounds, Soft. absent: Distended, Firm, Rebound, Rigid, Tenderness - Extremities Exam Extremities exam: Negative for: joint swelling, pedal edema Additional comments: right foot covered with gauze and surgical boot - Neurological Exam Neurological exam: Alert, Oriented x3 - Psychiatric Exam Psychiatric exam: Normal Affect - Skin Skin Exam: Warm Results - Vital Signs Recent Vital Signs: Last Vital Signs Temp 99.6 F 09/14/17 13:32 Pulse 97 H 09/14/17 13:32 Resp 18 09/14/17 13:32 BP 126/69 09/14/17 13:32 Pulse Ox 99 09/14/17 22:47 - Labs Result Diagrams: 09/14/17 21:09 09/14/17 15:45 Labs: Laboratory Results - last 24 hr 09/14/17 09/14/17 09/14/17 13:46 15:34 15:45 WBC 24.5 H D RBC 3.47 L Hgb 10.9 L Hct 32.3 L MCV 93.1 MCH 31.4 H MCHC 33.7 RDW 13.6 Plt Count 439 H D MPV 9.5 Neut % (Auto) 80.1 H Lymph % (Auto) 8.1 L [place] % (Auto) 10.6 H Eos % (Auto) 0.7 Baso % (Auto) 0.5 Neut # (Auto) 19.7 H Lymph # (Auto) 2.0 [place] # (Auto) 2.6 H Eos # (Auto) 0.2 Baso # (Auto) 0.1 Neutrophils % (Manual) 70 Band Neutrophils % 2 Lymphocytes % (Manual) 12 L Reactive Lymphs % 1 H Monocytes % (Manual) 14 H Myelocytes % 1 H Smudge Cells Present Platelet Estimate Normal Poikilocytosis (manual Slight Anisocytosis (manual) Moderate PT INR APTT pO2 VBG pH VBG pCO2 VBG HCO3 VBG Total CO2 VBG O2 Sat (Calc) VBG Base Excess VBG Potassium Glucose Lactate FiO2 Sodium Potassium Chloride Carbon Dioxide Anion Gap BUN Creatinine Est GFR ( Amer) Est GFR (Non-Af Amer) POC Glucose (mg/dL) 179 H 175 H Random Glucose Calcium Total Bilirubin AST ALT Alkaline Phosphatase Total Protein Albumin Globulin Albumin/Globulin Ratio Venous Blood Potassium Urine Color Urine Clarity Urine pH Ur Specific [place] Urine Protein Urine Glucose (UA) Urine Ketones Urine Blood Urine Nitrate Urine Bilirubin Urine Urobilinogen Ur Leukocyte Esterase Urine RBC (Auto) Urine Microscopic WBC Ur Squamous Epith Cells Urine Bacteria Hyaline Casts 09/14/17 09/14/17 09/14/17 15:45 15:45 18:15 WBC RBC Hgb Hct MCV MCH MCHC RDW Plt Count MPV Neut % (Auto) Lymph % (Auto) [place] % (Auto) Eos % (Auto) Baso % (Auto) Neut # (Auto) Lymph # (Auto) [place] # (Auto) Eos # (Auto) Baso # (Auto) Neutrophils % (Manual) Band Neutrophils % Lymphocytes % (Manual) Reactive Lymphs % Monocytes % (Manual) Myelocytes % Smudge Cells Platelet Estimate Poikilocytosis (manual Anisocytosis (manual) PT 14.7 H INR 1.3 H APTT 36.6 pO2 23 L VBG pH 7.37 VBG pCO2 46 VBG HCO3 23.9 VBG Total CO2 28.0 VBG O2 Sat (Calc) 45.7 VBG Base Excess 0.8 VBG Potassium 4.4 Glucose 165 H Lactate 2.1 FiO2 21.0 Sodium 132 128.0 L Potassium 4.8 Chloride 95 L 95.0 L Carbon Dioxide 22 Anion Gap 20 BUN 26 H Creatinine 1.5 Est GFR ( Amer) 58 Est GFR (Non-Af Amer) 48 POC Glucose (mg/dL) Random Glucose 168 H Calcium 9.4 Total Bilirubin 1.8 H AST 38 ALT 23 Alkaline Phosphatase 71 Total Protein 7.9 Albumin 3.9 Globulin 3.9 Albumin/Globulin Ratio 1.0 Venous Blood Potassium 4.4 Urine Color Urine Clarity Urine pH Ur Specific [place] Urine Protein Urine Glucose (UA) Urine Ketones Urine Blood Urine Nitrate Urine Bilirubin Urine Urobilinogen Ur Leukocyte Esterase Urine RBC (Auto) Urine Microscopic WBC Ur Squamous Epith Cells Urine Bacteria Hyaline Casts 09/14/17 09/14/17 21:09 21:30 WBC 20.7 H RBC 3.60 L Hgb 11.3 L Hct 33.4 L MCV 92.6 MCH 31.4 H MCHC 33.9 RDW 14.0 Plt Count 448 H MPV 9.5 Neut % (Auto) 79.6 H Lymph % (Auto) 9.3 L [place] % (Auto) 9.6 Eos % (Auto) 0.9 Baso % (Auto) 0.6 Neut # (Auto) 16.5 H Lymph # (Auto) 1.9 [place] # (Auto) 2.0 H Eos # (Auto) 0.2 Baso # (Auto) 0.1 Neutrophils % (Manual) Band Neutrophils % Lymphocytes % (Manual) Reactive Lymphs % Monocytes % (Manual) Myelocytes % Smudge Cells Platelet Estimate Poikilocytosis (manual Anisocytosis (manual) PT INR APTT pO2 VBG pH VBG pCO2 VBG HCO3 VBG Total CO2 VBG O2 Sat (Calc) VBG Base Excess VBG Potassium Glucose Lactate FiO2 Sodium Potassium Chloride Carbon Dioxide Anion Gap BUN Creatinine Est GFR ( Amer) Est GFR (Non-Af Amer) POC Glucose (mg/dL) Random Glucose Calcium Total Bilirubin AST ALT Alkaline Phosphatase Total Protein Albumin Globulin Albumin/Globulin Ratio Venous Blood Potassium Urine Color Yellow Urine Clarity Slighty-cloudy Urine pH 5.0 Ur Specific [place] 1.041 H Urine Protein Negative Urine Glucose (UA) Neg Urine Ketones Negative Urine Blood Negative Urine Nitrate Negative Urine Bilirubin Negative Urine Urobilinogen 4.0 Ur Leukocyte Esterase Mod Urine RBC (Auto) 8 H Urine Microscopic WBC 23 H Ur Squamous Epith Cells 1 Urine Bacteria Rare Hyaline Casts 3-5 H Assessment & Plan - Assessment and Plan (Free Text) Assessment: 61 y/o M with Hx of PVD, HTN is admitted for leukocytosis, dental abscess and UTI Near syncope Poss due to dehydration vs infectious disease has mild CARL with elevated specific gravity in UA and 2 poss sources of infection Family reported patient has poor PO intake since c/o tooth pain IV fluids replacement F/U UCx and BCx Pain control Abx as below Leukocytosis Acute 24--->20 Acute Likely infectious etiology including dental abscess + UTI Afebrile, normal Lactate Unlikely the foot as the source of infection as per Podiatry Fluid replacement C/W Cipro 400 mg IV q12h(had Pseudomonas in the wound Cx earlier this month sensitive to Cipro) for suspected UTI pending UCx C/W Clindamycin 600 mg IV q8h for periodontitis F/U CBC AM Periodontal abscess C/W Tooth pain for few days CT maxilo report: There is periapical lucency involving a right mandibular molar tooth and right maxillary lateral incisor consistent with periodontal disease/dental abscess. As per Dr. Phelps ([facility] [place] champion of sustainable design, patient could be DC home with PO amoxicillin. Dental infection unlikely cause of leukocytosis in the patient IV Clinda q8h for now UTI Acute UA + for WBC, RBC and LE Leukocytosis Cipro IV pending UCx CARL acute, mild Likely Dehydration vs infection Monitor F/U BMP AM PVD S/P SFA stent Stable C/w Home meds Prediabetes 1 random BS level >200 while on ED Will order [id number] Hold Metformin for now due to CARL ISS Prophylaxis DVT: Lovenox 40 mg SC HS(CrC 49) AAD: Florastor BID
[2017-09-15] MEDS ORDERED: Glucagon Recombinant 1 mg Inj IM PRN (00:53)
[2017-09-15] MEDS ORDERED: Dextrose 50% SYRINGE Inj (50 ml) IV PRN (00:53)
[2017-09-15] MEDS: Sodium Chloride 0.9% 1,000 ML IV SCH ×2 (01:06→11:20)
[2017-09-15] MEDS: Clindamycin 600mg/50ml NS 600 MG/50 ML BAG IVPB SCH ×2 (02:01→10:23)
[2017-09-15 06:43] LABS: BASO # 0.1 K/uL (0.0-0.2); BASO % 0.6 % (0.0-2.0); EOS # 0.3 K/uL (0.0-0.7); EOS % 2.1 % (0.0-4.0); HEMOGLOBIN 9.9 g/dL (12.0-18.0); LYMPH % 12.6 % (20.0-40.0); MEAN CELL VOLUME 91.3 fl (80.0-94.0); MEAN CORPUSCULAR HEMOGLOBIN 31.9 pg (27.0-31.0); MEAN CORPUSCULAR HGB CONC 34.9 g/dL (33.0-37.0); MEAN PLATELET VOLUME 9.5 fl (7.2-11.7); MONO # 1.6 K/uL (0.0-0.8); NEUT # 11.6 K/uL (1.8-7.0); NEUT % 74.7 % (50.0-75.0); NRBC % 0.1 % (0.0-0.0); RBC 3.1 Mil/uL (4.40-5.90); RED CELL DISTRIBUTION WIDTH 13.6 % (11.5-14.5); WHITE BLOOD COUNT 15.6 K/uL (4.8-10.8)
[2017-09-15 06:53] LABS: CALCIUM 8.9 mg/dL (8.4-10.2)
[2017-09-15] MEDS: Insulin Regular 100 units/ml SC SCH ×2 (06:53→11:38)
[2017-09-15 08:45] VITALS: RESP 20; TEMP 98.3; O2SAT 99
[2017-09-15] MEDS ORDERED: Saccharomyces Boulardi 250 mg Cap PO SCH (09:00)
[2017-09-15] MEDS ORDERED: Ciprofloxacin 400mg/200ml D5W 400 MG/200 ML BAG IVPB SCH (09:00)
--- NOTE | 2017-09-15 09:18 | CARD ---
APPROVED REPORT Date of service: 09/14/2017 EKG Measurement Heart [id number] <Conclusion> Normal sinus rhythm Minimal voltage criteria for LVH, may be normal variant Prolonged QT Abnormal ECG
[2017-09-15 10:23] VITALS: BP 111/62; PULSE 78
--- NOTE | 2017-09-15 10:26 | CT ---
Date of service: 09/14/2017 PROCEDURE: CT MAXILLOFACIAL BONES WITH CONTRAST HISTORY: R upper molar pain, r/o abscess COMPARISON: None. TECHNIQUE: Contiguous axial CT images of the maxillofacial bones were obtained following administration of IV contrast. Coronal and sagittal reformats were generated. Intravenous contrast Dose: 50 mL Visipaque 320 Radiation dose: Total exam DLP = 831.34 mGy-cm. This CT exam was performed using one or more of the following dose reduction techniques: Automated exposure control, adjustment of the mA and/or kV according to patient size, and/or use of iterative reconstruction technique. FINDINGS: NASAL BONES: Unremarkable. ORBITS: Unremarkable. PARANASAL SINUSES/ MASTOIDS: There is mild mucosal thickening in the right maxillary sinus and osteoneogenesis in bilateral maxillary sinuses. The remaining included paranasal sinuses are clear. MAXILLA: There is poor dentition with multiple missing PE in the maxilla. There is periapical lucency in the right lateral in size for. There are periapical lucencies and abnormal soft tissue in the right maxillary molars with irregular bony margin. There is also significant right lateral pre maxillary soft tissue swelling. MANDIBLE/ TEMPOROMANDIBULAR JOINTS: Unremarkable. SKULL BASE: Unremarkable. TEMPORAL BONES: Middle ears and mastoid grossly unremarkable. OTHER FINDINGS: None. IMPRESSION: 1. Findings are most compatible with a right maxillary molar are periapical abscess with phlegmonous changes extending into the pre maxillary soft tissues. 2. Periapical abscess in the right lateral incisor. A preliminary report was provided by [facility] services.
[2017-09-15 13:30] LABS: BLOOD UREA NITROGEN 32 mg/dl (9-20); CALCIUM 8.6 mg/dL (8.4-10.2); GFR AFRICAN-AMERICAN > 60; GFR NON-AFRICAN AMERICAN 52
--- NOTE | 2017-09-15 14:16 | CP.PCM.DIS ---
Provider - Provider Date of Admission: 09/14/17 22:13 Attending physician: Qing Webster MD Time Spent in preparation of Discharge (in minutes): 15 Diagnosis - Discharge Diagnosis (1) Near syncope Status: Resolved (2) Dental infection Status: Resolved (3) UTI (urinary tract infection) Status: Acute (4) Leukocytosis Status: Acute Hospital Course - Lab Results Lab Results: Most Recent Lab Values WBC 15.6 K/uL (4.8-10.8) H 09/15/17 05:55 RBC 3.10 Mil/uL (4.40-5.90) L 09/15/17 05:55 Hgb 9.9 g/dL (12.0-18.0) L 09/15/17 05:55 Hct 28.3 % (35.0-51.0) L 09/15/17 05:55 MCV 91.3 fl (80.0-94.0) 09/15/17 05:55 MCH 31.9 pg (27.0-31.0) H 09/15/17 05:55 MCHC 34.9 g/dL (33.0-37.0) 09/15/17 05:55 RDW 13.6 % (11.5-14.5) 09/15/17 05:55 Plt Count 417 K/uL (130-400) H 09/15/17 05:55 MPV 9.5 fl (7.2-11.7) 09/15/17 05:55 Neut % (Auto) 74.7 % (50.0-75.0) 09/15/17 05:55 Lymph % (Auto) 12.6 % (20.0-40.0) L 09/15/17 05:55 [place] % (Auto) 10.0 % (0.0-10.0) 09/15/17 05:55 Eos % (Auto) 2.1 % (0.0-4.0) 09/15/17 05:55 Baso % (Auto) 0.6 % (0.0-2.0) 09/15/17 05:55 Neut # (Auto) 11.6 K/uL (1.8-7.0) H 09/15/17 05:55 Lymph # (Auto) 2.0 K/uL (1.0-4.3) 09/15/17 05:55 [place] # (Auto) 1.6 K/uL (0.0-0.8) H 09/15/17 05:55 Eos # (Auto) 0.3 K/uL (0.0-0.7) 09/15/17 05:55 Baso # (Auto) 0.1 K/uL (0.0-0.2) 09/15/17 05:55 Neutrophils % (Manual) 70 % (42-75) 09/14/17 15:45 Band Neutrophils % 2 % (0-2) 09/14/17 15:45 Lymphocytes % (Manual) 12 % (20-50) L 09/14/17 15:45 Reactive Lymphs % 1 % (0-0) H 09/14/17 15:45 Monocytes % (Manual) 14 % (0-10) H 09/14/17 15:45 Myelocytes % 1 % (0-0) H 09/14/17 15:45 Smudge Cells Present 09/14/17 15:45 Platelet Estimate Normal (NORMAL) 09/14/17 15:45 Poikilocytosis (manual Slight 09/14/17 15:45 Anisocytosis (manual) Moderate 09/14/17 15:45 PT 14.7 Seconds (9.8-13.1) H 09/14/17 15:45 INR 1.3 (0.9-1.2) H 09/14/17 15:45 APTT 36.6 Seconds (25.6-37.1) 09/14/17 15:45 pO2 23 mm/Hg (30-55) L 09/14/17 18:15 VBG pH 7.37 (7.32-7.43) 09/14/17 18:15 VBG pCO2 46 mmHg (40-60) 09/14/17 18:15 VBG HCO3 23.9 mmol/L 09/14/17 18:15 VBG Total CO2 28.0 mmol/L (22-28) 09/14/17 18:15 VBG O2 Sat (Calc) 45.7 % (40-65) 09/14/17 18:15 VBG Base Excess 0.8 mmol/L (0.0-2.0) 09/14/17 18:15 VBG Potassium 4.4 mmol/L (3.6-5.2) 09/14/17 18:15 Sodium 128.0 mmol/L (132-148) L 09/14/17 18:15 Chloride 95.0 mmol/L (98-107) L 09/14/17 18:15 Glucose 165 mg/dL (75-110) H 09/14/17 18:15 Lactate 2.1 mmol/L (0.7-2.1) 09/14/17 18:15 FiO2 21.0 % 09/14/17 18:15 Sodium 133 mmol/l (132-148) 09/15/17 12:31 Potassium 4.2 MMOL/L (3.6-5.0) 09/15/17 12:31 Chloride 98 mmol/L (98-107) 09/15/17 12:31 Carbon Dioxide 25 mmol/L (22-30) 09/15/17 12:31 Anion Gap 14 (10-20) 09/15/17 12:31 BUN 32 mg/dl (9-20) H 09/15/17 12:31 Creatinine 1.4 mg/dl (0.8-1.5) 09/15/17 12:31 Est GFR ( Amer) > 60 09/15/17 12:31 Est GFR (Non-Af Amer) 52 09/15/17 12:31 POC Glucose (mg/dL) 325 mg/dL (65-110) H 09/15/17 10:57 Random Glucose 326 mg/dL (75-110) H 09/15/17 12:31 Hemoglobin A1c 8.2 % (4.2-6.5) H D 09/15/17 05:55 Calcium 8.6 mg/dL (8.4-10.2) 09/15/17 12:31 Total Bilirubin 1.8 mg/dl (0.2-1.3) H 09/14/17 15:45 AST 38 U/L (17-59) 09/14/17 15:45 ALT 23 U/L (21-72) 09/14/17 15:45 Alkaline Phosphatase 71 U/L (38-126) 09/14/17 15:45 Total Protein 7.9 G/DL (6.3-8.2) 09/14/17 15:45 Albumin 3.9 g/dL (3.5-5.0) 09/14/17 15:45 Globulin 3.9 gm/dL (2.2-3.9) 09/14/17 15:45 Albumin/Globulin Ratio 1.0 (1.0-2.1) 09/14/17 15:45 Venous Blood Potassium 4.4 mmol/L (3.6-5.2) 09/14/17 18:15 Urine Color Yellow (YELLOW) 09/14/17 21:30 Urine Clarity Slighty-cloudy (Clear) 09/14/17 21:30 Urine pH 5.0 (5.0-8.0) 09/14/17 21:30 Ur Specific [place] 1.041 (1.003-1.030) H 09/14/17 21:30 Urine Protein Negative mg/dL (NEGATIVE) 09/14/17 21:30 Urine Glucose (UA) Neg mg/dL (Normal) 09/14/17 21:30 Urine Ketones Negative mg/dL (NEGATIVE) 09/14/17 21:30 Urine Blood Negative (NEGATIVE) 09/14/17 21:30 Urine Nitrate Negative (NEGATIVE) 09/14/17 21:30 Urine Bilirubin Negative (NEGATIVE) 09/14/17 21:30 Urine Urobilinogen 4.0 mg/dL (0.2-1.0) 09/14/17 21:30 Ur Leukocyte Esterase Mod Sadie/uL (Negative) 09/14/17 21:30 Urine RBC (Auto) 8 /hpf (0-3) H 09/14/17 21:30 Urine Microscopic WBC 23 /hpf (0-5) H 09/14/17 21:30 Ur Squamous Epith Cells 1 /hpf (0-5) 09/14/17 21:30 Urine Bacteria Rare (<OCC) 09/14/17 21:30 Hyaline Casts 3-5 /hpf (0-2) H 09/14/17 21:30 - Hospital Course Hospital Course: 61 y/o M with PMHx of PVD, Prediabetes, S/p percutaneous transluminal angioplasty & atherectomy of SFA and s/p right transmetatarsal amputation presented to ER with c/o near syncope episode, tooth pain. Patient evaluated in ER and admitted for further evaluation. Patient diagnosed with dental abscess and UTI. CBC, CMP, VBG, UA, Foot XR, CXR and Maxilofacial CT done. Patient started on IV fluids, Clindamycin and Ciprofloxacin IV with improvement in symptoms. WBC and BMP improving. Patient evaluated and cleared by podiatry. Patient to F/U with Dr. Tiffany Quintero at [facility] on 09/18/17 for further evaluation for weight loss. Discharge medications Sulfamethoxazole/Trimethoprim [Bactrim DS 800 mg-160 mg] 1 tab PO Q12 #14 tab Discharge Exam - Head Exam Head Exam: ATRAUMATIC, NORMAL INSPECTION - Eye Exam Eye Exam: EOMI, Normal appearance, PERRL Pupil Exam: NORMAL ACCOMODATION, PERRL - ENT Exam ENT Exam: Mucous Membranes Moist - Neck Exam Neck exam: Full Rom - Respiratory Exam Respiratory Exam: Clear to PA & Lateral, UNREMARKABLE. absent: Rales, Rhonchi, Wheezes, Respiratory Distress - Cardiovascular Exam Cardiovascular Exam: REGULAR RHYTHM, +S1, +S2. absent: Systolic Murmur - GI/Abdominal Exam GI & Abdominal Exam: Normal Bowel Sounds, Soft. absent: Distended, Rebound, Rigid, Tenderness - Back Exam Back exam: absent: CVA tenderness (L), CVA tenderness (R), tenderness - Neurological Exam Neurological exam: Alert, Oriented x3 - Psychiatric Exam Psychiatric exam: Normal Affect, Normal Mood - Skin Skin Exam: Dry, Intact, Normal Color Discharge Plan - Discharge Medications Prescriptions: Sulfamethoxazole/Trimethoprim [Bactrim DS 800 mg-160 mg] 1 tab PO Q12 #14 tab - Follow Up Plan Condition: STABLE Disposition: HOME/ ROUTINE Patient education suggested?: Yes Instructions: Dental Pain (DC), Near Fainting (DC), Leukocytosis (DC) Additional Instructions: follow up with primary MD 1 week Referrals: [facility] [Outside] Dandre Pham DPM [Staff Provider] -
[2017-09-15] MEDS ORDERED: Patient's Own Med (Metformin Er [Glucophage Xr] 500 mg) PO SCH (18:00)
[2017-09-15] MEDS ORDERED: Enoxaparin 40 mg Syringe SC SCH (22:00)
== END 2017-09-15 16:30 | disposition home or self-care (01) ==
LOC: H.ER 13:31 → H.ERHOLD 22:13 → H.MEDSURG1 09-15 01:36
PROVIDERS: ADMIT Family Medicine Geriatric Medicine; ATTEND Family Medicine Geriatric Medicine
DX: R55 Syncope and collapse (principal); N39.0 Urinary tract infection, site not specified; Z72.0 Tobacco use; Z87.01 Personal history of pneumonia (recurrent); Z79.84 Long term (current) use of oral hypoglycemic drugs; Z79.899 Other long term (current) drug therapy; E11.51 Type 2 diabetes mellitus with diabetic peripheral angiopathy without gangrene; E78.00 Pure hypercholesterolemia, unspecified; E78.5 Hyperlipidemia, unspecified; I10 Essential (primary) hypertension; K04.7 Periapical abscess without sinus; N17.9 Acute kidney failure, unspecified
CPT/HCPCS: 36415; 70488; 71046; 73630; 80048; 80053; 81003; 82803; 82948; 83036; 85025; 85610; 85730; 87040; 87086; 93005; 96360; 96361; 97162; 99285; G0378; G8978; G8979; J0744; J1885; J7030

== ENCOUNTER 2017-12-28 14:17 | Inpatient (IN) | payer MEDICAID, OTHER ==
[2017-12-28 16:32] LABS: BASO # 0.1 K/uL (0.0-0.2); EOS # 0.2 K/uL (0.0-0.7); EOS % 1.9 % (0.0-4.0); HEMOGLOBIN 11.4 g/dL (12.0-18.0); LYMPH # 2.1 K/uL (1.0-4.3); LYMPH % 18.2 % (20.0-40.0); MEAN CELL VOLUME 87.7 fl (80.0-94.0); MEAN CORPUSCULAR HGB CONC 33.1 g/dL (33.0-37.0); MEAN PLATELET VOLUME 9.9 fl (7.2-11.7); MONO # 0.7 K/uL (0.0-0.8); MONO % 6.2 % (0.0-10.0); NEUT # 8.5 K/uL (1.8-7.0); NEUT % 72.7 % (50.0-75.0); RBC 3.91 Mil/uL (4.40-5.90); RED CELL DISTRIBUTION WIDTH 13.7 % (11.5-14.5); WHITE BLOOD COUNT 11.6 K/uL (4.8-10.8)
[2017-12-28 16:38] LABS: INR 1.1; PROTHROMBIN TIME 12.9 Seconds (9.8-13.1)
[2017-12-28 16:40] LABS: PARTIAL THROMBOPLASTIN TIME 34.1 Seconds (25.6-37.1)
[2017-12-28 17:06] LABS: ALBUMIN 3.7 g/dL (3.5-5.0); ALT/SGPT 20 U/L (21-72); AST/SGOT 24 U/L (17-59); BLOOD UREA NITROGEN 18 mg/dl (9-20); CALCIUM 9.3 mg/dL (8.4-10.2); GFR NON-AFRICAN AMERICAN > 60
--- NOTE | 2017-12-28 17:07 | CP.PCM.CON ---
History of Present Illness - History of Present Illness History of Present Illness: Podiatry consult note for Dr. Pham, 62 y/o male, with PMHx of DM, HTN, seen and evaluated for left gangrenous changes to the hallux. Patient states it started off as tiny lesion and has now progressed to the entire toe. Initially started a month ago but because he didnt have insurnace was unable to see a doctor for it. Patient denies keeping the hallux covered. States he has decreased his smoking however is having difficulty stopping. Denies seeing any drainage from the wound. Patient denies any other pedal complaints at this time. Denies N/V/F/SOB/CP. PMHx: DM, HTN PSHx: Right AKA, cholecystectomy Social: Current tobacco use ALL: NKDA Past Patient History - Infectious Disease Hx of Infectious Diseases: None - Past Medical History & Family History Past Medical History?: Yes - Past Social History Smoking Status: Heavy Smoker > 10 Cigarettes Daily - CARDIAC Hx Hypercholesterolemia: Yes Hx Hypertension: Yes - PULMONARY Hx Pneumonia: Yes - NEUROLOGICAL Hx Neurological Disorder: No - HEENT Hx HEENT Problems: No - RENAL Hx Chronic Kidney Disease: No - ENDOCRINE/METABOLIC Hx Diabetes Mellitus Type 2: No - HEMATOLOGICAL/ONCOLOGICAL Hx Human Immunodeficiency Virus (HIV): No - INTEGUMENTARY Hx Dermatological Problems: No - MUSCULOSKELETAL/RHEUMATOLOGICAL Hx Musculoskeletal Disorders: Yes - GASTROINTESTINAL Hx Gall Bladder Disease: Yes - GENITOURINARY/GYNECOLOGICAL Hx Genitourinary Disorders: No - PSYCHIATRIC Hx Emotional Abuse: No Hx Physical Abuse: No Hx Substance Use: No Other/Comment: ETOH abuse - SURGICAL HISTORY Other/Comment: Gallstones removed. Left arm surgery. fluid removed from his lung - ANESTHESIA Hx Malignant Hyperthermia: No Meds Allergies/Adverse Reactions: Allergies Allergy/AdvReac Type Severity Reaction Status Date / Time No Known Allergies Allergy Verified 12/28/17 15:06 Physical Exam - Constitutional Appears: Well, Non-toxic, No Acute Distress - Head Exam Head Exam: ATRAUMATIC, NORMOCEPHALIC - Extremities Exam Additional comments: LLE focused exam: Vascular: DP non-palpable PT nonpalpable, TG warm to cool, no evidence of edema Ortho: Right AKA, left pain to the tip of the hallux Neuro: gross sensation intact, protective sensation diminished Derm: Gangrenous changes noted to the hallux distal to the sulcus, fissure noted in the sulcus, no open lesions, no malodor, no active drainage. - Neurological Exam Neurological exam: Alert, Oriented x3 - Psychiatric Exam Psychiatric exam: Normal Affect - Skin Skin Exam: Normal Color Results - Vital Signs Recent Vital Signs: Last Vital Signs Temp 96 F L 12/28/17 15:06 Pulse 105 H 12/28/17 15:06 Resp 20 12/28/17 15:06 BP 106/64 12/28/17 15:06 Pulse Ox 100 12/28/17 15:06 - Labs Result Diagrams: 12/28/17 16:26 12/28/17 16:26 Labs: Laboratory Results - last 24 hr 12/28/17 12/28/17 16:26 16:26 PT 12.9 INR 1.1 APTT 34.1 Sodium 132 Potassium 4.8 Chloride 99 Carbon Dioxide 24 Anion Gap 14 BUN 18 Creatinine 0.8 Est GFR ( Amer) > 60 Est GFR (Non-Af Amer) > 60 Calcium 9.3 Total Bilirubin 0.7 AST 24 ALT 20 L D Alkaline Phosphatase 94 Total Protein 7.2 Albumin 3.7 Globulin 3.6 Albumin/Globulin Ratio 1.0 Assessment & Plan - Assessment and Plan (Free Text) Assessment: 62 yo male seen and evaluated for gangrenous changes to the left hallux Plan: Patient seen and evaluated chart, labs and vitals reviewed; afebrile and absent leukocytosis X-rays ordered and reviewed; no osseous abnormality noted left foot dressed with betadine and DSD dudley/pvr ordered for the left lower extremity podiatry plan: pending vascular status possible amputation of the left hallux thank you for the consult podiatry will continue to follow the patient while in house
--- NOTE | 2017-12-28 17:09 | ED PDOC ---
Lower Extremity Pain/Injury Time Seen by Provider: 12/28/17 15:45 Chief Complaint (Nursing): Lower Extremity Problem/Injury Chief Complaint (Provider): "my toe is worse" History Per: Patient History/Exam Limitations: no limitations Onset/Duration Of Symptoms: Gradual Current Symptoms Are (Timing): Still Present Severity: Severe Additional History Per: Prior Records Additional Complaint(s): 62yo male presents c/o foot pain, black great toe, and generalized weakness. Had R AKA several months ago, never followed up for recommended appts required. Denies fever, syncope, new trauma or falls. Past Medical History Reviewed: Historical Data, Nursing Documentation, Vital Signs Vital Signs: Last Vital Signs Temp 96 F L 12/28/17 15:06 Pulse 105 H 12/28/17 15:06 Resp 20 12/28/17 15:06 BP 106/64 12/28/17 15:06 Pulse Ox 100 12/28/17 15:06 - Medical History PMH: Diabetes, Gall Bladder Disease, HTN, Hypercholesterolemia, Pneumonia Denies: HIV, Chronic Kidney Disease - Family History Family History: States: Unknown Family Hx - Home Medications Home Medications: Ambulatory Orders Medication Instructions Recorded RX: Ammonium Lactate 12% 1 applic TOP TID #1 bottle 10/26/17 [Lac-Hydrin 12% Lotion (225 g)] RX: Atorvastatin [Lipitor] 40 mg PO DAILY #30 tab 10/26/17 RX: Carvedilol [Coreg] 25 mg PO Q12 30 Days #60 tab 10/26/17 RX: Cilostazol [Pletal] 100 mg PO BID #60 tab 10/26/17 RX: Gabapentin [Neurontin] 300 mg PO HS #30 cap 10/26/17 RX: Losartan [Cozaar] 50 mg PO DAILY #30 tab 10/26/17 RX: Ticagrelor [Brilinta] 90 mg PO BID #60 tab 10/26/17 RX: metFORMIN [glucOPHAGE] 850 mg PO BID #60 tab 10/26/17 - Allergies Allergies/Adverse Reactions: Allergies Allergy/AdvReac Type Severity Reaction Status Date / Time garlic Allergy Mild RASH Verified 12/29/17 13:54 Review of Systems Constitutional: Negative for: Fever Respiratory: Positive for: Shortness of Breath Gastrointestinal: Negative for: Abdominal Pain Genitourinary Male: Negative for: Dysuria Musculoskeletal: Negative for: Neck Pain Skin: Negative for: Rash, Lesions Neurological: Positive for: Numbness. Negative for: Weakness Physical Exam - Reviewed Nursing Documentation Reviewed: Yes Vital Signs Reviewed: Yes - Physical Exam Appears: Positive for: Well, Non-toxic, No Acute Distress Head Exam: Positive for: ATRAUMATIC, NORMAL INSPECTION, NORMOCEPHALIC Skin: Positive for: Normal Color, Warm, DRY Eye Exam: Positive for: EOMI, Normal appearance, PERRL ENT: Positive for: Normal ENT Inspection Neck: Positive for: Normal, Painless ROM Cardiovascular/Chest: Positive for: Regular Rate, Rhythm Respiratory: Positive for: CNT, Normal Breath Sounds Gastrointestinal/Abdominal: Positive for: Normal Exam, Soft Back: Positive for: Normal Inspection Extremity: Positive for: Other (R AKA L foot +gangrenous hallux tracking to sole foot, discharge, loss sensation) Neurologic/Psych: Positive for: Alert, Motor/Sensory Deficits (L foot sensory loss). Negative for: Aphasia, Facial Droop - Laboratory Results Result Diagrams: 12/31/17 05:30 12/31/17 05:30 - ECG O2 Sat by Pulse Oximetry: 100 Medical Decision Making Medical Decision Making: podiatry consult XRays reviewed basic labs reviewed admit med surg Disposition - Clinical Impression Clinical Impression: Gangrene of foot - Patient ED Disposition Is Patient to be Admitted: Yes - Disposition Disposition Time: 17:01 Condition: FAIR - Pt Status Changed To: Hospital Disposition Of: Inpatient - Admit Certification Admit to Inpatient:: After my assessment, the patient will require hospitalization for at least two midnights. This is because of the severity of symptoms shown, intensity of services needed, and/or the medical risk in this patient being treated as an outpatient.
--- NOTE | 2017-12-28 17:09 | RAD ---
Date of service: 12/28/2017 PROCEDURE: Left Foot Radiographs. HISTORY: gangrene hallux COMPARISON: None. FINDINGS: BONES: Normal. No fracture. JOINTS: Normal. SOFT TISSUES: Normal. OTHER FINDINGS: None. IMPRESSION: No significant or acute findings to account for/ related to the clinical presentation.
[2017-12-28] MEDS ORDERED: Sodium Chloride 0.9% 1,000 ML IV STA (17:26)
[2017-12-28] MEDS ORDERED: Insulin Regular 100 units/ml IVP ONE (17:26)
--- NOTE | 2017-12-28 18:00 | CP.PCM.HP ---
History of Present Illness - History of Present Illness History of Present Illness: This is 61 year old male w/ PMH of PVD, gangrenous right foot s/p TMA 08/21/17, S/P Right leg AKA done on 10/12/17, NIDDM, pancreatic/ lung mass on CT and HTN admitted for evaluation and treatment of Left great toe pain since last one mon . As per patient, left great toe pain started last month, Sharp pain, constant pain 4/0, 8/10 when he walks on the foot, non-radiating, Advil helps with this pain, denies any associated fever, chills, n/v/d/c, chest pain, SOB, dizziness, abdominal pain, urinary symptoms or weakness. Non-compliant with medications and follow ups. pancreatic/ lung mass on CT : patient never followed up with Dr. Marcano due to insurance issues PMD: [facility] PMH: As per HPI PSH: Lap CCY, SFA stent, gangrenous right foot s/p TMA 08/21/17, S/P Right leg AKA done on 10/12/17 Allergies: NKDA Smokin-1.5ppd/20yrs Alcohol: A couple of beers almost every day/ occasional shots Drugs: Denies FH: unknown Meds: as per med rec ER course: VS: Stable, Afebrile CBC: wbc 11.6 CMP: BS 487 S/p Insulin 6U NS 1L EKG UA Foot xray: no osseous abnormality noted Present on Admission - Present on Admission Any Indicators Present on Admission: No Past Patient History - Infectious Disease Hx of Infectious Diseases: None - Past Medical History & Family History Past Medical History?: Yes - Past Social History Smoking Status: Heavy Smoker > 10 Cigarettes Daily - CARDIAC Hx Hypercholesterolemia: Yes Hx Hypertension: Yes - PULMONARY Hx Pneumonia: Yes - NEUROLOGICAL Hx Neurological Disorder: No - HEENT Hx HEENT Problems: No - RENAL Hx Chronic Kidney Disease: No - ENDOCRINE/METABOLIC Hx Diabetes Mellitus Type 2: No - HEMATOLOGICAL/ONCOLOGICAL Hx Human Immunodeficiency Virus (HIV): No - INTEGUMENTARY Hx Dermatological Problems: No - MUSCULOSKELETAL/RHEUMATOLOGICAL Hx Musculoskeletal Disorders: Yes - GASTROINTESTINAL Hx Gall Bladder Disease: Yes - GENITOURINARY/GYNECOLOGICAL Hx Genitourinary Disorders: No - PSYCHIATRIC Hx Emotional Abuse: No Hx Physical Abuse: No Hx Substance Use: No Other/Comment: ETOH abuse - SURGICAL HISTORY Other/Comment: Gallstones removed. Left arm surgery. fluid removed from his lung - ANESTHESIA Hx Malignant Hyperthermia: No Meds Allergies/Adverse Reactions: Allergies Allergy/AdvReac Type Severity Reaction Status Date / Time No Known Allergies Allergy Verified 12/28/17 15:06 Physical Exam - Constitutional Appears: No Acute Distress - Head Exam Head Exam: NORMAL INSPECTION - Eye Exam Eye Exam: Normal appearance - ENT Exam ENT Exam: Mucous Membranes Moist - Neck Exam Neck exam: Positive for: Normal Inspection - Respiratory Exam Respiratory Exam: Clear to Auscultation Bilateral, NORMAL BREATHING PATTERN. absent: Accessory Muscle Use, Chest Wall Tenderness, Rhonchi, Wheezes - Cardiovascular Exam Cardiovascular Exam: REGULAR RHYTHM, +S1, +S2 - GI/Abdominal Exam GI & Abdominal Exam: Normal Bowel Sounds, Soft. absent: Rebound, Rigid, Tenderness - Extremities Exam Additional comments: Right AKA Left great toe: gangrenous, sensory and motor intact, LLE: Pulses not palpable - Back Exam Back exam: NORMAL INSPECTION. absent: CVA tenderness (L), CVA tenderness (R) - Neurological Exam Neurological exam: Alert, CN II-XII Intact, Oriented x3 - Psychiatric Exam Psychiatric exam: Normal Affect - Skin Skin Exam: Normal Color Results - Vital Signs Recent Vital Signs: Last Vital Signs Temp 96 F L 12/28/17 15:06 Pulse 105 H 12/28/17 15:06 Resp 20 12/28/17 15:06 BP 106/64 12/28/17 15:06 Pulse Ox 100 12/28/17 17:09 - Labs Result Diagrams: 12/28/17 16:26 12/28/17 16:26 Labs: Laboratory Results - last 24 hr 12/28/17 12/28/17 12/28/17 16:26 16:26 16:26 WBC 11.6 H RBC 3.91 L Hgb 11.4 L D Hct 34.3 L MCV 87.7 MCH 29.0 MCHC 33.1 RDW 13.7 Plt Count 613 H D MPV 9.9 Neut % (Auto) 72.7 Lymph % (Auto) 18.2 L [facility] % (Auto) 6.2 Eos % (Auto) 1.9 Baso % (Auto) 1.0 Neut # (Auto) 8.5 H Lymph # (Auto) 2.1 [facility] # (Auto) 0.7 Eos # (Auto) 0.2 Baso # (Auto) 0.1 PT 12.9 INR 1.1 APTT 34.1 Sodium 132 Potassium 4.8 Chloride 99 Carbon Dioxide 24 Anion Gap 14 BUN 18 Creatinine 0.8 Est GFR ( Amer) > 60 Est GFR (Non-Af Amer) > 60 Random Glucose 487 H* D Calcium 9.3 Total Bilirubin 0.7 AST 24 ALT 20 L D Alkaline Phosphatase 94 Total Protein 7.2 Albumin 3.7 Globulin 3.6 Albumin/Globulin Ratio 1.0 Assessment & Plan - Assessment and Plan (Free Text) Assessment: A/P: 61 year old male w/ PMH of PVD, gangrenous right foot s/p TMA 08/21/17, S/P Right leg AKA done on 10/12/17, NIDDM, pancreatic/ lung mass on CT and HTN admitted for evaluation and treatment of Left great toe pain/ gangrene. Left great toe pain/ gangrene - Afebrile - X-rays ordered and reviewed; no osseous abnormality noted - Consult Podiatry, Dr. Pham, follow up recommendations - dudley/pvr ordered for the left lower extremity - Continue toe management as per podiatry: podiatry plan- pending vascular status possible amputation of the left hallux - Pain management - CBC in morning NIDDM- II - Uncontrolled - Non-compliant with lifestyle modification and medications - C/w Levimer 4U HS - Medium lispro/sliding scale - Hypoglycemic protocol - Accu CHeck ACSH - C/w Lipitor - C/w Gabapentin - HOLD metformin for now Hypertension - Chronic, uncontrolled - C/w Coreg 25BID, COzzar 50daily PVD - Chronic - C/w Cilostazol - C/w Brilinta - C/w Gabapentin Pancreatic/ lung mass on CT - Out patient follow up Alcohol abuse/Current smoking - Last alcohol 3 days ago - Educated against alcohol and smoking: Risks discussed with patient DVT PPX - Lovenox 40mg SC daily
[2017-12-28 18:08] LABS: SQUAMOUS EPITHIAL 1 /hpf (0-5); URINE BILIRUBIN NEGATIVE (NEGATIVE); URINE BLOOD NEGATIVE (NEGATIVE); URINE CLARITY SLIGHTY-CLOUDY (Clear); URINE COLOR YELLOW (YELLOW); URINE GLUCOSE (UA) >=500 mg/dL (Normal); URINE LEUKOCYTE ESTERASE NEG Leu/uL (Negative); URINE PROTEIN NEGATIVE (NEGATIVE); URINE UROBILINOGEN 0.2-1.0 mg/dL (0.2-1.0)
[2017-12-28] MEDS ORDERED: Dextrose 50% SYRINGE Inj (50 ml) IV PRN (18:39)
[2017-12-28] MEDS ORDERED: Glucagon Recombinant 1 mg Inj IM PRN (18:39)
[2017-12-28] MEDS: Insulin Lispro (humaLOG) 100 Units/ml Inj SC SCH ×2 (19:52→23:13)
[2017-12-28] MEDS: Insulin Detemir 100 Units/ml Inj SC SCH ×2 (19:53→23:14)
[2017-12-28] MEDS: Cilostazol 100 mg Tab UD PO SCH (21:26)
[2017-12-28] MEDS ORDERED: Insulin Lispro (humaLOG) 100 Units/ml Inj SC STA (21:34)
[2017-12-28] MEDS ORDERED: Insulin Detemir 100 Units/ml Inj SC SCH (22:00)
[2017-12-28] MEDS ORDERED: Insulin Lispro (humaLOG) 100 Units/ml Inj SC SCH (22:00)
[2017-12-29 06:03] LABS: BASO # 0.1 K/uL (0.0-0.2); BASO % 0.9 % (0.0-2.0); EOS # 0.2 K/uL (0.0-0.7); EOS % 1.9 % (0.0-4.0); HEMOGLOBIN 10.8 g/dL (12.0-18.0); LYMPH # 2.8 K/uL (1.0-4.3); LYMPH % 25.7 % (20.0-40.0); MEAN CORPUSCULAR HEMOGLOBIN 28.3 pg (27.0-31.0); MEAN CORPUSCULAR HGB CONC 32.1 g/dL (33.0-37.0); MEAN PLATELET VOLUME 9.6 fl (7.2-11.7); MONO # 0.8 K/uL (0.0-0.8); MONO % 6.8 % (0.0-10.0); NEUT # 7.1 K/uL (1.8-7.0); NEUT % 64.7 % (50.0-75.0); RBC 3.81 Mil/uL (4.40-5.90); RED CELL DISTRIBUTION WIDTH 13.6 % (11.5-14.5); WHITE BLOOD COUNT 11.1 K/uL (4.8-10.8)
--- NOTE | 2017-12-29 06:53 | CARD ---
APPROVED REPORT Date of service: 12/28/2017 EKG Measurement Heart [id number] <Conclusion> Normal sinus rhythm Minimal voltage criteria for LVH, may be normal variant Abnormal ECG
[2017-12-29] MEDS ORDERED: Povidone Iodine Topical 10% Sol ONE (08:13)
--- NOTE | 2017-12-29 08:38 | CP.PCM.PN ---
Subjective - Date & Time of Evaluation Date of Evaluation: 12/29/17 Time of Evaluation: 08:35 - Subjective Subjective: Podiatry consult note for Dr. Pham, 62 y/o male, with PMHx of DM, HTN, seen and evaluated for left gangrenous changes to the hallux. Denies acute overnight events. AAOX3 and in NAD. Denies any other pedal complains. Denies f/n/v/sob. Objective - Vital Signs/Intake and Output Vital Signs (last 24 hours): Temp Pulse Resp BP Pulse Ox 97.9 F 97 H 20 150/75 100 12/29/17 07:59 12/29/17 07:59 12/29/17 07:59 12/29/17 07:59 12/29/17 07:59 - Medications Medications: Current Medications Acetaminophen (Tylenol 325mg Tab) 650 mg PO Q6 PRN PRN Reason: Fever >100.4 F Acetaminophen (Tylenol 325mg Tab) 650 mg PO Q6 PRN PRN Reason: Pain, Mild (1-3) Atorvastatin Calcium (Lipitor) 40 mg PO DAILY [facility] Carvedilol (Coreg) 25 mg PO Q12 [facility] Last Admin: 12/28/17 21:25 Dose: 25 mg Cilostazol (Pletal) 100 mg PO BID [facility] Last Admin: 12/28/17 21:26 Dose: 100 mg Dextrose (Dextrose 50% Inj) 0 ml IV STAT PRN; Protocol PRN Reason: Hypoglycemia Protocol Dextrose (Glutose 15) 0 gm PO ONCE PRN; Protocol PRN Reason: Hypoglycemia Protocol Enoxaparin Sodium (Lovenox) 40 mg SC DAILY [facility]; Protocol Gabapentin (Neurontin) 300 mg PO HS [facility] Last Admin: 12/28/17 23:14 Dose: 300 mg Glucagon (Glucagen Diagnostic Kit) 0 mg IM STAT PRN; Protocol PRN Reason: Hypoglycemia Protocol Insulin Detemir (Levemir) 4 units SC HS [facility] Last Admin: 12/28/17 23:14 Dose: Not Given Insulin Human Lispro (Humalog) 0 units SC [facility]; Protocol Last Admin: 12/28/17 23:13 Dose: Not Given Losartan Potassium (Cozaar) 50 mg PO DAILY [facility] Metformin HCl (Glucophage) 850 mg PO BID [facility] Ticagrelor (Brilinta) 90 mg PO BID [facility] Last Admin: 12/28/17 21:26 Dose: 90 mg - Labs Labs: 12/29/17 05:30 12/28/17 16:26 PT 12.9 Seconds (9.8-13.1) 12/28/17 16:26 INR 1.1 12/28/17 16:26 APTT 34.1 Seconds (25.6-37.1) 12/28/17 16:26 - Extremities Exam Additional comments: LLE focused exam: Vascular: DP non-palpable PT nonpalpable, TG warm to cool, no evidence of edema Ortho: Right AKA, left pain to the tip of the hallux Neuro: gross sensation intact, protective sensation diminished Derm: Gangrenous changes noted to the hallux distal to the sulcus, closed fissure noted in the sulcus, hyperpigmentation noted in the 2-5 toes, no open lesions, no malodor, no active drainage. - Neurological Exam Neurological Exam: Alert, Awake Assessment and Plan - Assessment and Plan (Free Text) Assessment: 62 yo male seen and evaluated for gangrenous changes to the left hallux Plan: Patient seen and evaluated chart, labs and vitals reviewed; afebrile and absent leukocytosis X-rays ordered and reviewed; no osseous abnormality noted left foot dressed with betadine and DSD dudley/pvr ordered for the left lower extremity Vascular consult ordered podiatry plan: pending vascular status possible amputation of the left hallux podiatry will continue to follow the patient while in house
[2017-12-29] MEDS: Insulin Lispro (humaLOG) 100 Units/ml Inj SC SCH ×4 (08:41→22:00)
[2017-12-29] MEDS ORDERED: Insulin Detemir 100 Units/ml Inj SC SCH (09:00)
[2017-12-29] MEDS: Cilostazol 100 mg Tab UD PO SCH ×2 (09:27→16:30)
[2017-12-29] MEDS: Enoxaparin 40 mg Syringe SC SCH (09:41)
--- NOTE | 2017-12-29 10:16 | CP.PCM.PN ---
<Ameena KatiaervinHenrique - Last Filed: 12/29/17 13:26> Subjective - Date & Time of Evaluation Date of Evaluation: 12/29/17 Time of Evaluation: 09:50 - Subjective Subjective: Patient seen today at bedside, NAD, c/o mild pain to the first left toe, also c/o lower back and states he had a slide and fall yesterday at home and hit his back bone and it hurts now in that area. Denies chest pain, SOB, N/V/D, chills or fever. Objective - Vital Signs/Intake and Output Vital Signs (last 24 hours): Temp Pulse Resp BP Pulse Ox 97.9 F 106 H 20 129/71 100 12/29/17 09:33 12/29/17 09:26 12/29/17 07:59 12/29/17 09:26 12/29/17 07:59 - Medications Medications: Current Medications Acetaminophen (Tylenol 325mg Tab) 650 mg PO Q6 PRN PRN Reason: Fever >100.4 F Acetaminophen (Tylenol 325mg Tab) 650 mg PO Q6 PRN PRN Reason: Pain, Mild (1-3) Last Admin: 12/29/17 09:33 Dose: 650 mg Atorvastatin Calcium (Lipitor) 40 mg PO DAILY [facility] Last Admin: 12/29/17 09:26 Dose: 40 mg Carvedilol (Coreg) 25 mg PO Q12 [facility] Last Admin: 12/29/17 09:25 Dose: 25 mg Cilostazol (Pletal) 100 mg PO BID [facility] Last Admin: 12/29/17 09:27 Dose: 100 mg Dextrose (Dextrose 50% Inj) 0 ml IV STAT PRN; Protocol PRN Reason: Hypoglycemia Protocol Dextrose (Glutose 15) 0 gm PO ONCE PRN; Protocol PRN Reason: Hypoglycemia Protocol Enoxaparin Sodium (Lovenox) 40 mg SC DAILY [facility]; Protocol Last Admin: 12/29/17 09:41 Dose: 40 mg Gabapentin (Neurontin) 300 mg PO HS [facility] Last Admin: 12/28/17 23:14 Dose: 300 mg Glucagon (Glucagen Diagnostic Kit) 0 mg IM STAT PRN; Protocol PRN Reason: Hypoglycemia Protocol Insulin Detemir (Levemir) 15 units SC DAILY [facility] Last Admin: 12/29/17 09:36 Dose: 15 units Insulin Human Lispro (Humalog) 0 units SC ACHS [facility]; Protocol Last Admin: 12/29/17 08:41 Dose: 6 units Losartan Potassium (Cozaar) 50 mg PO DAILY [facility] Last Admin: 12/29/17 09:26 Dose: 50 mg Metformin HCl (Glucophage) 850 mg PO BID [facility] Ticagrelor (Brilinta) 90 mg PO BID [facility] Last Admin: 12/29/17 09:24 Dose: 90 mg - Labs Labs: 12/29/17 05:30 12/28/17 16:26 PT 12.9 Seconds (9.8-13.1) 12/28/17 16:26 INR 1.1 12/28/17 16:26 APTT 34.1 Seconds (25.6-37.1) 12/28/17 16:26 - Constitutional Appears: No Acute Distress - Head Exam Head Exam: ATRAUMATIC, NORMOCEPHALIC - Eye Exam Eye Exam: EOMI - ENT Exam ENT Exam: Mucous Membranes Moist - Neck Exam Neck Exam: Full ROM - Respiratory Exam Respiratory Exam: Clear to Ausculation Bilateral - Cardiovascular Exam Cardiovascular Exam: RRR, +S1, +S2 - GI/Abdominal Exam GI & Abdominal Exam: Soft, Normal Bowel Sounds. absent: Tenderness - Extremities Exam Additional comments: RKA Left foot dressing removed: noted gangrenous changes on the distal area of fisrt toe. 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 Plan: Left great toe pain/ gangrene - Afebrile - X-rays ordered and reviewed; no osseous abnormality noted - Consult Podiatry, Dr. Pham, follow up recommendations - dudley/pvr ordered for the left lower extremity - Continue toe management as per podiatry: podiatry plan- pending vascular status possible amputation of the left hallux - Pain management - CBC in morning NIDDM- II - Uncontrolled - Non-compliant with lifestyle modification and medications - C/w Levimer 4U HS - Medium lispro/sliding scale - Hypoglycemic protocol - Accu CHeck ACSH - C/w Lipitor - C/w Gabapentin - HOLD metformin for now Hypertension - Chronic, uncontrolled - C/w Coreg 25 BID - Cozzar 50daily PVD - Chronic - C/w Cilostazol - C/w Brilinta - C/w Gabapentin Pancreatic/ lung mass on CT - Outpatient follow up Alcohol abuse/Current smoking - Last alcohol 3 days ago - Educated against alcohol and smoking: Risks discussed with patient DVT PPX - Lovenox 40mg SC daily <Gema Patel - Last Filed: 12/29/17 16:26> Objective - Vital Signs/Intake and Output Vital Signs (last 24 hours): Temp Pulse Resp BP Pulse Ox 98.1 F 101 H 18 124/69 100 12/29/17 16:08 12/29/17 16:08 12/29/17 16:08 12/29/17 16:08 12/29/17 16:08 - Medications Medications: Current Medications Acetaminophen (Tylenol 325mg Tab) 650 mg PO Q6 PRN PRN Reason: Fever >100.4 F Acetaminophen (Tylenol 325mg Tab) 650 mg PO Q6 PRN PRN Reason: Pain, Mild (1-3) Last Admin: 12/29/17 09:33 Dose: 650 mg Atorvastatin Calcium (Lipitor) 40 mg PO DAILY [facility] Last Admin: 12/29/17 09:26 Dose: 40 mg Carvedilol (Coreg) 25 mg PO Q12 [facility] Last Admin: 12/29/17 09:25 Dose: 25 mg Cilostazol (Pletal) 100 mg PO BID [facility] Last Admin: 12/29/17 09:27 Dose: 100 mg Dextrose (Dextrose 50% Inj) 0 ml IV STAT PRN; Protocol PRN Reason: Hypoglycemia Protocol Dextrose (Glutose 15) 0 gm PO ONCE PRN; Protocol PRN Reason: Hypoglycemia Protocol Enoxaparin Sodium (Lovenox) 40 mg SC DAILY [facility]; Protocol Last Admin: 12/29/17 09:41 Dose: 40 mg Gabapentin (Neurontin) 300 mg PO HS [facility] Last Admin: 12/28/17 23:14 Dose: 300 mg Glucagon (Glucagen Diagnostic Kit) 0 mg IM STAT PRN; Protocol PRN Reason: Hypoglycemia Protocol Insulin Detemir (Levemir) 15 units SC DAILY [facility] Last Admin: 12/29/17 09:36 Dose: 15 units Insulin Human Lispro (Humalog) 0 units SC ACHS [facility]; Protocol Last Admin: 12/29/17 11:18 Dose: 14 units Losartan Potassium (Cozaar) 50 mg PO DAILY [facility] Last Admin: 12/29/17 09:26 Dose: 50 mg Metformin HCl (Glucophage) 850 mg PO BID [facility] Ticagrelor (Brilinta) 90 mg PO BID [facility] Last Admin: 12/29/17 09:24 Dose: 90 mg - Labs Labs: 12/29/17 05:30 12/28/17 16:26 PT 12.9 Seconds (9.8-13.1) 12/28/17 16:26 INR 1.1 12/28/17 16:26 APTT 34.1 Seconds (25.6-37.1) 12/28/17 16:26 Attending/Attestation - Attestation I have personally seen and examined this patient.: Yes I have fully participated in the care of the patient.: Yes I have reviewed all pertinent clinical information, including history, physical exam and plan: Yes Notes (Text): 1. Left Great Toe Gangrene likely due to PVD -Vascular SX consult - Dr Hightower - Arterial Doppler Study - left LE ( pt has hx of Right BKA) - cont Pletal and Brillinta - Podiatry consulted - pt still smokes 2. DM Type II with Hyperglycemia - Increase Levemir to 20 units sq daily
[2017-12-29] MEDS ORDERED: Insulin Lispro (humaLOG) 100 Units/ml Inj SC ONE (11:35)
--- NOTE | 2017-12-29 15:51 | RAD ---
Date of service: 12/29/2017 PROCEDURE: Radiographs of the Lumbar Spine. HISTORY: back pain COMPARISON: 04/15/2011 FINDINGS: BONES: Normal alignment. No listhesis. No fracture. DISC SPACES: Unremarkable. OTHER FINDINGS: Calcified nonaneurysmal abdominal aorta. IMPRESSION: No significant or acute findings to account for/ related to the clinical presentation. No significant interval change compared to the prior examination(s).
[2017-12-29] MEDS ORDERED: Insulin Lispro (humaLOG) 100 Units/ml Inj SC STA (16:34)
[2017-12-29] MEDS: Oxycodone/Acetaminophen 5/325 mg Tab PO PRN (20:52)
[2017-12-29] MEDS: Insulin Detemir 100 Units/ml Inj SC SCH (21:32)
[2017-12-30 06:18] LABS: HEMOGLOBIN 10.4 g/dL (12.0-18.0); MEAN CELL VOLUME 88.4 fl (80.0-94.0); MEAN CORPUSCULAR HGB CONC 32.8 g/dL (33.0-37.0); RBC 3.59 Mil/uL (4.40-5.90); RED CELL DISTRIBUTION WIDTH 13.9 % (11.5-14.5); WHITE BLOOD COUNT 9.3 K/uL (4.8-10.8)
[2017-12-30 06:37] LABS: BLOOD UREA NITROGEN 20 mg/dl (9-20); CALCIUM 9.1 mg/dL (8.4-10.2); GFR NON-AFRICAN AMERICAN > 60
[2017-12-30] MEDS: Cilostazol 100 mg Tab UD PO SCH ×2 (08:49→17:58)
[2017-12-30] MEDS: Insulin Lispro (humaLOG) 100 Units/ml Inj SC SCH ×4 (08:54→22:29)
[2017-12-30] MEDS: Insulin Detemir 100 Units/ml Inj SC SCH ×2 (08:56→22:32)
[2017-12-30] MEDS: Enoxaparin 40 mg Syringe SC SCH (09:00)
[2017-12-30] MEDS ORDERED: Insulin Detemir 100 Units/ml Inj SC SCH (09:00)
[2017-12-30] MEDS: Oxycodone/Acetaminophen 5/325 mg Tab PO PRN (09:05)
--- NOTE | 2017-12-30 09:49 | CP.PCM.PN ---
Subjective - Date & Time of Evaluation Date of Evaluation: 12/30/17 Time of Evaluation: 09:20 - Subjective Subjective: Patient seen today at bedside, NAD, c/o pain on the first left toe 08/25, states that pain is improving with pain medication he already took this morning. Denies chest pain , SOB, palpiattions, abdominal knight, N/V, chills, is afebrile. Objective - Vital Signs/Intake and Output Vital Signs (last 24 hours): Temp Pulse Resp BP Pulse Ox 97.8 F 95 H 20 124/71 100 12/30/17 08:37 12/30/17 08:47 12/30/17 08:37 12/30/17 08:47 12/30/17 08:37 - Medications Medications: Current Medications Acetaminophen (Tylenol 325mg Tab) 650 mg PO Q6 PRN PRN Reason: Fever >100.4 F Acetaminophen (Tylenol 325mg Tab) 650 mg PO Q6 PRN PRN Reason: Pain, Mild (1-3) Last Admin: 12/29/17 09:33 Dose: 650 mg Atorvastatin Calcium (Lipitor) 40 mg PO DAILY [facility] Last Admin: 12/30/17 08:48 Dose: 40 mg Carvedilol (Coreg) 25 mg PO Q12 [facility] Last Admin: 12/30/17 08:47 Dose: 25 mg Cilostazol (Pletal) 100 mg PO BID [facility] Last Admin: 12/30/17 08:49 Dose: 100 mg Dextrose (Dextrose 50% Inj) 0 ml IV STAT PRN; Protocol PRN Reason: Hypoglycemia Protocol Dextrose (Glutose 15) 0 gm PO ONCE PRN; Protocol PRN Reason: Hypoglycemia Protocol Enoxaparin Sodium (Lovenox) 40 mg SC DAILY [facility]; Protocol Last Admin: 12/30/17 09:00 Dose: 40 mg Gabapentin (Neurontin) 300 mg PO HS [facility] Last Admin: 12/29/17 21:32 Dose: 300 mg Glucagon (Glucagen Diagnostic Kit) 0 mg IM STAT PRN; Protocol PRN Reason: Hypoglycemia Protocol Ibuprofen (Motrin Tab) 600 mg PO Q6 PRN PRN Reason: Pain, moderate (4-7) Insulin Detemir (Levemir) 10 units SC Q12 [facility] Last Admin: 12/30/17 08:56 Dose: 10 units Insulin Human Lispro (Humalog) 0 units SC ACHS [facility]; Protocol Last Admin: 12/30/17 08:54 Dose: 3 units Losartan Potassium (Cozaar) 50 mg PO DAILY [facility] Last Admin: 12/30/17 08:47 Dose: 50 mg Metformin HCl (Glucophage) 850 mg PO BID [facility] Oxycodone/Acetaminophen (Percocet 5/325 Mg Tab) 1 tab PO Q6 PRN PRN Reason: Pain, severe (8-10) Stop: 01/01/18 20:24 Last Admin: 12/30/17 09:05 Dose: 1 tab Ticagrelor (Brilinta) 90 mg PO BID [facility] Last Admin: 12/30/17 08:46 Dose: 90 mg - Labs Labs: 12/30/17 05:30 12/30/17 05:30 PT 12.9 Seconds (9.8-13.1) 12/28/17 16:26 INR 1.1 12/28/17 16:26 APTT 34.1 Seconds (25.6-37.1) 12/28/17 16:26 - Constitutional Appears: No Acute Distress - Head Exam Head Exam: ATRAUMATIC, NORMOCEPHALIC - Eye Exam Eye Exam: EOMI - ENT Exam ENT Exam: Mucous Membranes Moist - Neck Exam Neck Exam: Full ROM - Respiratory Exam Respiratory Exam: Clear to Ausculation Bilateral. absent: Wheezes - Cardiovascular Exam Cardiovascular Exam: RRR, +S1, +S2 - GI/Abdominal Exam GI & Abdominal Exam: Soft, Normal Bowel Sounds. absent: Tenderness - Extremities Exam Additional comments: Right AKA Left foot: noted gangrenous changes of first toe, sensation appears intact. 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 Plan: Left great toe gangrene likely secondary to PVD -Vascular surgery consulted Dr Hightower (notified), recommendation appreciated - X-rays ordered and reviewed; no osseous abnormality noted - Podiatry consulted, Dr. Pham, follow up recommendations - JASON/pvr ordered for the left lower extremity - Continue toe management as per podiatry: podiatry plan- pending vascular status possible amputation of the left hallux - C/w Brilinta and Pletal - Pain management - CBC in morning NIDDM- II - Uncontrolled - Non-compliant with lifestyle modification and medications - C/w Levemir 10U SC Q12h - Medium lispro/sliding scale - Hypoglycemic protocol - Accu Check ACSH - C/w Lipitor - C/w Gabapentin - HOLD metformin for now Hypertension - Chronic,stable - C/w Coreg 25 BID - Cozzar 50 daily PVD - Chronic - C/w Cilostazol - C/w Brilinta Pancreatic/ lung mass on CT - Outpatient follow up Alcohol abuse/Current smoking - Educated against alcohol and smoking: Risks discussed with patient DVT PPX - Lovenox 40mg SC daily
[2017-12-31 06:58] LABS: HEMOGLOBIN 10.1 g/dL (12.0-18.0); MEAN CELL VOLUME 90.1 fl (80.0-94.0); MEAN CORPUSCULAR HEMOGLOBIN 29.3 pg (27.0-31.0); MEAN CORPUSCULAR HGB CONC 32.6 g/dL (33.0-37.0); RBC 3.43 Mil/uL (4.40-5.90); RED CELL DISTRIBUTION WIDTH 13.6 % (11.5-14.5); WHITE BLOOD COUNT 9.1 K/uL (4.8-10.8)
[2017-12-31 07:07] LABS: ALB/GLOB RATIO 0.9 (1.0-2.1); ALBUMIN 3.3 g/dL (3.5-5.0); ALT/SGPT 17 U/L (21-72); AST/SGOT 23 U/L (17-59); BLOOD UREA NITROGEN 17 mg/dl (9-20); CALCIUM 9.3 mg/dL (8.4-10.2); GFR NON-AFRICAN AMERICAN > 60
--- NOTE | 2017-12-31 09:52 | CP.PCM.PN ---
Subjective - Date & Time of Evaluation Date of Evaluation: 12/31/17 Time of Evaluation: 09:51 - Subjective Subjective: 62 yo male patient seen and examined at bedside. Patient is resting comfortably in bed and in NAD. He reports pain to the L big toe, and feels relief when he hangs his leg off the bed. No new complaints, denies N/F/V/SOB/CP. Objective - Vital Signs/Intake and Output Vital Signs (last 24 hours): Temp Pulse Resp BP Pulse Ox 97.6 F 89 20 169/82 H 100 12/31/17 08:32 12/31/17 08:32 12/31/17 08:32 12/31/17 08:32 12/31/17 08:32 - Medications Medications: Current Medications Acetaminophen (Tylenol 325mg Tab) 650 mg PO Q6 PRN PRN Reason: Fever >100.4 F Acetaminophen (Tylenol 325mg Tab) 650 mg PO Q6 PRN PRN Reason: Pain, Mild (1-3) Last Admin: 12/29/17 09:33 Dose: 650 mg Atorvastatin Calcium (Lipitor) 40 mg PO DAILY [facility] Last Admin: 12/30/17 08:48 Dose: 40 mg Carvedilol (Coreg) 25 mg PO Q12 [facility] Last Admin: 12/30/17 21:34 Dose: 25 mg Cilostazol (Pletal) 100 mg PO BID [facility] Last Admin: 12/30/17 17:58 Dose: 100 mg Dextrose (Dextrose 50% Inj) 0 ml IV STAT PRN; Protocol PRN Reason: Hypoglycemia Protocol Dextrose (Glutose 15) 0 gm PO ONCE PRN; Protocol PRN Reason: Hypoglycemia Protocol Enoxaparin Sodium (Lovenox) 40 mg SC DAILY [facility]; Protocol Gabapentin (Neurontin) 300 mg PO HS [facility] Last Admin: 12/30/17 22:33 Dose: 300 mg Glucagon (Glucagen Diagnostic Kit) 0 mg IM STAT PRN; Protocol PRN Reason: Hypoglycemia Protocol Ibuprofen (Motrin Tab) 600 mg PO Q6 PRN PRN Reason: Pain, moderate (4-7) Last Admin: 12/31/17 06:22 Dose: 600 mg Insulin Detemir (Levemir) 10 units SC Q12 [facility] Last Admin: 12/30/17 22:32 Dose: 10 units Insulin Human Lispro (Humalog) 0 units SC ACHS [facility]; Protocol Last Admin: 12/30/17 22:29 Dose: Not Given Losartan Potassium (Cozaar) 50 mg PO DAILY [facility] Last Admin: 12/30/17 08:47 Dose: 50 mg Metformin HCl (Glucophage) 850 mg PO BID [facility] Morphine Sulfate (Morphine) 2 mg IVP Q6 PRN PRN Reason: Pain, severe (8-10) Last Admin: 12/30/17 17:16 Dose: 2 mg Oxycodone/Acetaminophen (Percocet 5/325 Mg Tab) 1 tab PO Q6 PRN PRN Reason: Pain, severe (8-10) Stop: 01/01/18 20:24 Last Admin: 12/30/17 09:05 Dose: 1 tab - Labs Labs: 12/31/17 05:30 12/31/17 05:30 PT 12.9 Seconds (9.8-13.1) 12/28/17 16:26 INR 1.1 12/28/17 16:26 APTT 34.1 Seconds (25.6-37.1) 12/28/17 16:26 - Constitutional Appears: Non-toxic, No Acute Distress - Head Exam Head Exam: ATRAUMATIC, NORMOCEPHALIC - Eye Exam Eye Exam: Normal appearance Pupil Exam: NORMAL ACCOMODATION - ENT Exam ENT Exam: Mucous Membranes Moist - Respiratory Exam Respiratory Exam: NORMAL BREATHING PATTERN - Cardiovascular Exam Cardiovascular Exam: REGULAR RHYTHM - GI/Abdominal Exam GI & Abdominal Exam: Soft, Normal Bowel Sounds - Extremities Exam Additional comments: R AKA appreciated, L hallux dry gangrene, + malodor appreciated - Neurological Exam Neurological Exam: Alert, Awake, Oriented x3 - Psychiatric Exam Psychiatric exam: Normal Affect, Normal Mood - Skin Additional comments: Temperature gradient cool to cool from proximal to distal Assessment and Plan - Assessment and Plan (Free Text) Assessment: 61M, with PMHx of PVD, HTN, DMII, gangrenous right foot s/p TMA (DOS: 08/21/17), R AKA (DOS: 10/12/17), and pancreatic/lung mass on CT, admitted for dry gangrene to L hallux with vascular compromise Plan: 1) Left hallux dry gangrene likely secondary to PVD - L foot X-rays reviewed; no osseous abnormality noted - Podiatry consulted, Dr. Pham, pending vascular status possible amputation of the left hallux - JASON/PVR ordered for the left lower extremity - F/U Vascular surgery, Dr. Hightower, [facility] appreciated - C/w Pletal, d/c brilinta - Pain management - CBC in morning 2) DMII - Uncontrolled, non-compliant with medications - C/w Levemir 10U SC Q12h - Medium lispro/sliding scale - Hypoglycemic protocol - Accu Check ACSH - C/w Lipitor and Gabapentin - Hold metformin for now 3) HTN - Chronic,stable - C/w Coreg 25 BID - Cozzar 50 daily 4) PVD - Chronic - C/w Cilostazol 5) Pancreatic/ lung mass on CT - F/U as outpatient 6) Alcohol abuse/Tobacco use - Educated patient on risks of alcohol and tobacco use 7) DVT PPX - Lovenox 40mg SC daily
[2017-12-31] MEDS: Insulin Detemir 100 Units/ml Inj SC SCH ×2 (10:33→22:09)
[2017-12-31] MEDS: Insulin Lispro (humaLOG) 100 Units/ml Inj SC SCH ×4 (10:33→22:08)
[2017-12-31] MEDS: Cilostazol 100 mg Tab UD PO SCH ×2 (10:35→17:03)
[2017-12-31] MEDS: Enoxaparin 40 mg Syringe SC SCH (11:38)
--- NOTE | 2017-12-31 13:17 | CP.PCM.PN ---
Subjective - Date & Time of Evaluation Date of Evaluation: 12/31/17 Time of Evaluation: 13:15 - Subjective Subjective: Podiatry progress note for Dr. Pham, 62 y/o male, with PMHx of DM, HTN, seen and evaluated for left gangrenous changes to the hallux. Denies acute overnight events. AAOX3 and in NAD. Denies any other pedal complains. states was seen by Dr. Hightower. Denies f/n/v/sob. Objective - Vital Signs/Intake and Output Vital Signs (last 24 hours): Temp Pulse Resp BP Pulse Ox 97.6 F 89 20 169/82 H 100 12/31/17 08:32 12/31/17 10:31 12/31/17 08:32 12/31/17 10:31 12/31/17 08:32 - Medications Medications: Current Medications Acetaminophen (Tylenol 325mg Tab) 650 mg PO Q6 PRN PRN Reason: Fever >100.4 F Acetaminophen (Tylenol 325mg Tab) 650 mg PO Q6 PRN PRN Reason: Pain, Mild (1-3) Last Admin: 12/29/17 09:33 Dose: 650 mg Atorvastatin Calcium (Lipitor) 40 mg PO DAILY [facility] Last Admin: 12/31/17 10:34 Dose: 40 mg Carvedilol (Coreg) 25 mg PO Q12 [facility] Last Admin: 12/31/17 10:31 Dose: 25 mg Cilostazol (Pletal) 100 mg PO BID [facility] Last Admin: 12/31/17 10:35 Dose: 100 mg Dextrose (Dextrose 50% Inj) 0 ml IV STAT PRN; Protocol PRN Reason: Hypoglycemia Protocol Dextrose (Glutose 15) 0 gm PO ONCE PRN; Protocol PRN Reason: Hypoglycemia Protocol Enoxaparin Sodium (Lovenox) 40 mg SC DAILY [facility]; Protocol Last Admin: 12/31/17 11:38 Dose: 40 mg Gabapentin (Neurontin) 300 mg PO HS [facility] Last Admin: 12/30/17 22:33 Dose: 300 mg Glucagon (Glucagen Diagnostic Kit) 0 mg IM STAT PRN; Protocol PRN Reason: Hypoglycemia Protocol Ibuprofen (Motrin Tab) 600 mg PO Q6 PRN PRN Reason: Pain, moderate (4-7) Last Admin: 12/31/17 13:01 Dose: 600 mg Insulin Detemir (Levemir) 10 units SC Q12 [facility] Last Admin: 12/31/17 10:33 Dose: 10 units Insulin Human Lispro (Humalog) 0 units SC ACHS [facility]; Protocol Last Admin: 12/31/17 12:59 Dose: 8 units Losartan Potassium (Cozaar) 50 mg PO DAILY [facility] Last Admin: 12/31/17 10:31 Dose: 50 mg Metformin HCl (Glucophage) 850 mg PO BID [facility] Morphine Sulfate (Morphine) 2 mg IVP Q6 PRN PRN Reason: Pain, severe (8-10) Last Admin: 12/30/17 17:16 Dose: 2 mg Oxycodone/Acetaminophen (Percocet 5/325 Mg Tab) 1 tab PO Q6 PRN PRN Reason: Pain, severe (8-10) Stop: 01/01/18 20:24 Last Admin: 12/30/17 09:05 Dose: 1 tab - Labs Labs: 12/31/17 05:30 12/31/17 05:30 PT 12.9 Seconds (9.8-13.1) 12/28/17 16:26 INR 1.1 12/28/17 16:26 APTT 34.1 Seconds (25.6-37.1) 12/28/17 16:26 - Extremities Exam Additional comments: LLE focused exam: Vascular: DP non-palpable PT nonpalpable, TG warm to cool, no evidence of edema Ortho: Right AKA, left pain to the tip of the hallux Neuro: gross sensation intact, protective sensation diminished Derm: Gangrenous changes noted to the hallux distal to the sulcus, closed fissure noted in the sulcus, minimal serous drainage noted. hyperpigmentation no mamie in the 2-5 toes, no open lesions, no malodor - Neurological Exam Neurological Exam: Alert, Awake - Psychiatric Exam Psychiatric exam: Normal Affect - Skin Skin Exam: Normal Color Assessment and Plan - Assessment and Plan (Free Text) Assessment: 62 yo male seen and evaluated for gangrenous changes to the left hallux Plan: Patient seen and evaluated chart, labs and vitals reviewed; afebrile and absent leukocytosis X-rays ordered and reviewed; no osseous abnormality noted left foot dressed with betadine and DSD dudley/pvr ordered for the left lower extremity Vascular consult ordered podiatry plan: pending vascular status amputation of the left hallux podiatry will continue to follow the patient while in house
[2018-01-01] MEDS: Insulin Lispro (humaLOG) 100 Units/ml Inj SC SCH ×4 (08:03→22:31)
[2018-01-01] MEDS: Cilostazol 100 mg Tab UD PO SCH ×2 (09:11→16:50)
[2018-01-01] MEDS: Enoxaparin 40 mg Syringe SC SCH (09:11)
[2018-01-01] MEDS: Insulin Detemir 100 Units/ml Inj SC SCH ×2 (09:11→22:31)
--- NOTE | 2018-01-01 09:21 | CP.PCM.PN ---
<Sylvia Navarrete - Last Filed: 01/01/18 13:14> Subjective - Date & Time of Evaluation Date of Evaluation: 01/01/18 Time of Evaluation: 09:21 - Subjective Subjective: 62M patient seen and examined at bedside, resting comfortably. He denies any acute events overnight and is in NAD. He reports pain to the L foot today. Patient states that he was seen by Dr. Hightower and went for testing to examine the blood flow to his L leg. Denies N/V/F/SOB/CP/Chills. Objective - Vital Signs/Intake and Output Vital Signs (last 24 hours): Temp Pulse Resp BP Pulse Ox 98.2 F 93 H 20 133/73 100 01/01/18 08:12 01/01/18 09:10 01/01/18 08:12 01/01/18 09:10 01/01/18 08:12 - Medications Medications: Current Medications Acetaminophen (Tylenol 325mg Tab) 650 mg PO Q6 PRN PRN Reason: Fever >100.4 F Acetaminophen (Tylenol 325mg Tab) 650 mg PO Q6 PRN PRN Reason: Pain, Mild (1-3) Last Admin: 12/29/17 09:33 Dose: 650 mg Atorvastatin Calcium (Lipitor) 40 mg PO DAILY [facility] Last Admin: 01/01/18 09:11 Dose: 40 mg Carvedilol (Coreg) 25 mg PO Q12 [facility] Last Admin: 01/01/18 09:10 Dose: 25 mg Cilostazol (Pletal) 100 mg PO BID [facility] Last Admin: 01/01/18 09:11 Dose: 100 mg Dextrose (Dextrose 50% Inj) 0 ml IV STAT PRN; Protocol PRN Reason: Hypoglycemia Protocol Dextrose (Glutose 15) 0 gm PO ONCE PRN; Protocol PRN Reason: Hypoglycemia Protocol Enoxaparin Sodium (Lovenox) 40 mg SC DAILY [facility]; Protocol Last Admin: 01/01/18 09:11 Dose: 40 mg Gabapentin (Neurontin) 300 mg PO HS [facility] Last Admin: 12/31/17 22:09 Dose: 300 mg Glucagon (Glucagen Diagnostic Kit) 0 mg IM STAT PRN; Protocol PRN Reason: Hypoglycemia Protocol Ibuprofen (Motrin Tab) 600 mg PO Q6 PRN PRN Reason: Pain, moderate (4-7) Last Admin: 01/01/18 06:29 Dose: 600 mg Insulin Detemir (Levemir) 10 units SC Q12 [facility] Last Admin: 01/01/18 09:11 Dose: 10 units Insulin Human Lispro (Humalog) 0 units SC [facility]; Protocol Last Admin: 01/01/18 08:03 Dose: 8 units Losartan Potassium (Cozaar) 50 mg PO DAILY [facility] Last Admin: 01/01/18 09:10 Dose: 50 mg Metformin HCl (Glucophage) 850 mg PO BID [facility] Morphine Sulfate (Morphine) 2 mg IVP Q6 PRN PRN Reason: Pain, severe (8-10) Last Admin: 12/30/17 17:16 Dose: 2 mg Oxycodone/Acetaminophen (Percocet 5/325 Mg Tab) 1 tab PO Q6 PRN PRN Reason: Pain, severe (8-10) Stop: 01/01/18 20:24 Last Admin: 12/30/17 09:05 Dose: 1 tab - Labs Labs: 12/31/17 05:30 12/31/17 05:30 PT 12.9 Seconds (9.8-13.1) 12/28/17 16:26 INR 1.1 12/28/17 16:26 APTT 34.1 Seconds (25.6-37.1) 12/28/17 16:26 - Constitutional Appears: Non-toxic, No Acute Distress - Head Exam Head Exam: ATRAUMATIC, NORMOCEPHALIC - Eye Exam Eye Exam: Normal appearance Pupil Exam: NORMAL ACCOMODATION - Respiratory Exam Respiratory Exam: Clear to Ausculation Bilateral, NORMAL BREATHING PATTERN - Cardiovascular Exam Cardiovascular Exam: REGULAR RHYTHM - GI/Abdominal Exam GI & Abdominal Exam: Soft, Normal Bowel Sounds - Extremities Exam Additional comments: L foot dressing C/D/I, no strike through appreciated Assessment and Plan - Assessment and Plan (Free Text) Assessment: 61M, with PMHx of PVD, HTN, DMII, gangrenous right foot s/p TMA (DOS: 08/21/17), R AKA (DOS: 10/12/17), and pancreatic/lung mass, admitted for dry gangrene to L hallux with vascular compromise Plan: 1) Left hallux dry gangrene likely secondary to PVD - Afebrile, WBC 9.1 - L foot X-rays; no osseous abnormality noted - Podiatry consult, Dr. Pham, pending vascular status possible amputation of the L hallux - F/U Vascular surgery, Dr. Hightower, reccs appreciated - C/w Pletal, d/c brilinta - Pain management - CBC in morning 2) DMII - Uncontrolled, non-compliant with medications - C/w Levemir 10U SC Q12h - Medium lispro/sliding scale - Hypoglycemic protocol - Accu Check ACSH - C/w Lipitor and Gabapentin - Hold metformin for now 3) HTN - Chronic,stable - C/w Coreg 25 BID - Cozzar 50 daily 4) PVD - Chronic - C/w Cilostazol 5) Pancreatic/ lung mass on CT - F/U as outpatient 6) Alcohol abuse/Tobacco use - Educated patient on risks of alcohol and tobacco use 7) DVT PPX - Lovenox 40mg SC daily <Marybeth Roman - Last Filed: 01/02/18 10:01> Objective - Vital Signs/Intake and Output Vital Signs (last 24 hours): Temp Pulse Resp BP Pulse Ox 97.2 F L 91 H 20 148/76 100 01/02/18 08:31 01/02/18 08:31 01/02/18 08:31 01/02/18 08:31 01/02/18 08:31 - Medications Medications: Current Medications Acetaminophen (Tylenol 325mg Tab) 650 mg PO Q6 PRN PRN Reason: Fever >100.4 F Acetaminophen (Tylenol 325mg Tab) 650 mg PO Q6 PRN PRN Reason: Pain, Mild (1-3) Last Admin: 12/29/17 09:33 Dose: 650 mg Atorvastatin Calcium (Lipitor) 40 mg PO DAILY [facility] Last Admin: 01/02/18 09:26 Dose: 40 mg Carvedilol (Coreg) 25 mg PO Q12 [facility] Last Admin: 01/02/18 09:25 Dose: 25 mg Cilostazol (Pletal) 100 mg PO BID [facility] Last Admin: 01/02/18 09:26 Dose: 100 mg Dextrose (Dextrose 50% Inj) 0 ml IV STAT PRN; Protocol PRN Reason: Hypoglycemia Protocol Dextrose (Glutose 15) 0 gm PO ONCE PRN; Protocol PRN Reason: Hypoglycemia Protocol Enoxaparin Sodium (Lovenox) 40 mg SC DAILY [facility]; Protocol Last Admin: 01/02/18 09:27 Dose: 40 mg Gabapentin (Neurontin) 300 mg PO HS [facility] Last Admin: 01/01/18 21:32 Dose: 300 mg Glucagon (Glucagen Diagnostic Kit) 0 mg IM STAT PRN; Protocol PRN Reason: Hypoglycemia Protocol Ibuprofen (Motrin Tab) 600 mg PO Q6 PRN PRN Reason: Pain, moderate (4-7) Last Admin: 01/02/18 07:26 Dose: 600 mg Insulin Detemir (Levemir) 10 units SC Q12 [facility] Last Admin: 01/02/18 09:26 Dose: 10 units Insulin Human Lispro (Humalog) 0 units SC ACHS [facility]; Protocol Last Admin: 01/02/18 07:27 Dose: 3 units Losartan Potassium (Cozaar) 50 mg PO DAILY [facility] Last Admin: 01/02/18 09:25 Dose: 50 mg Metformin HCl (Glucophage) 850 mg PO BID [facility] Morphine Sulfate (Morphine) 2 mg IVP Q6 PRN PRN Reason: Pain, severe (8-10) Last Admin: 12/30/17 17:16 Dose: 2 mg - Labs Labs: 12/31/17 05:30 12/31/17 05:30 PT 12.9 Seconds (9.8-13.1) 12/28/17 16:26 INR 1.1 12/28/17 16:26 APTT 34.1 Seconds (25.6-37.1) 12/28/17 16:26 Attending/Attestation - Attestation I have personally seen and examined this patient.: Yes I have fully participated in the care of the patient.: Yes I have reviewed all pertinent clinical information, including history, physical exam and plan: Yes Notes (Text): 01/02/18 10:01 Seen, examined, and discussed with resident. Agree with findings and plan as above.
--- NOTE | 2018-01-01 14:14 | VASCLAB ---
Date of service: 12/30/2017 STUDY DESCRIPTION: Lower Extremity Arterial Exam (PVR). HISTORY: evaluate blood flow to LLE RT BKA 2018 PRIORS: None. TECHNIQUE: Pulse volume recording waveforms and segmental pressures of bilateral lower extremities at multiple levels were obtained. Ankle Brachial Indices (ABIs) were calculated. Report prepared by Robby Guzmán RDMS,MARGARET,RVTatum,RYAN RIGHT LOWER EXTREMITY: * Brachial artery: Pressure - mmHg. * High thigh: Pressure - mmHg: Ratio - : PVR waveform - Pulsatile * Low thigh: Pressure - mmHg: Ratio - PVR waveform: Pulsatile * Calf: Pressure - mmHg: Ratio - PVR waveform: Pulsatile * Posterior tibial Artery: Pressure - mmHg: Ratio - PVR waveform: Pulsatile * Dorsalis pedis Artery: Pressure - mmHg: Ratio - PVR waveform: Pulsatile * Great toe: Pressure - mmHg: Ratio - PVR waveform: Pulsatile Ankle brachial index (JASON): LEFT LOWER EXTREMITY: * Brachial artery: Pressure - 108 mmHg. * High thigh: Pressure - 118 mmHg: Ratio - 1.09: PVR waveform - Dampned * Low thigh: Pressure - mmHg: Ratio - PVR waveform: Pulsatile * Calf: Pressure - 107 mmHg: Ratio - 0.99 PVR waveform: Reduced * Posterior tibial Artery: Pressure - 91 mmHg: Ratio - 0.84 PVR waveform: Reduced * Dorsalis pedis Artery: Pressure - 99 mmHg: Ratio - 0.92 PVR waveform: Reduced * Great toe: Pressure - mmHg: Ratio - PVR waveform: Pulsatile Ankle brachial index (JASON): 0.92 OTHER FINDINGS: IMPRESSION: Right: BKA Left: There was evidence of hemodynamically signifacant arterial insufficency in the left lower extremity.
[2018-01-02] MEDS: Insulin Lispro (humaLOG) 100 Units/ml Inj SC SCH ×4 (07:27→22:16)
--- NOTE | 2018-01-02 07:50 | CP.PCM.PN ---
<Jose Cruz Hanna - Last Filed: 01/02/18 10:22> Subjective - Date & Time of Evaluation Date of Evaluation: 01/02/18 Time of Evaluation: 10:22 - Subjective Subjective: Patient seen and examined at bedside this morning. There are no acute events overnight and is in NAD. Patient reports pain of left toe relieved w/ medication. Patient awaiting CTA on Thursday. Denies N/V/F/SOB/CP/Chills. Objective - Vital Signs/Intake and Output Vital Signs (last 24 hours): Temp Pulse Resp BP Pulse Ox 98.2 F 100 H 18 156/76 H 100 01/02/18 01:00 01/02/18 01:00 01/02/18 01:00 01/02/18 01:00 01/02/18 01:00 - Medications Medications: Current Medications Acetaminophen (Tylenol 325mg Tab) 650 mg PO Q6 PRN PRN Reason: Fever >100.4 F Acetaminophen (Tylenol 325mg Tab) 650 mg PO Q6 PRN PRN Reason: Pain, Mild (1-3) Last Admin: 12/29/17 09:33 Dose: 650 mg Atorvastatin Calcium (Lipitor) 40 mg PO DAILY [facility] Last Admin: 01/01/18 09:11 Dose: 40 mg Carvedilol (Coreg) 25 mg PO Q12 [facility] Last Admin: 01/01/18 21:32 Dose: 25 mg Cilostazol (Pletal) 100 mg PO BID [facility] Last Admin: 01/01/18 16:50 Dose: 100 mg Dextrose (Dextrose 50% Inj) 0 ml IV STAT PRN; Protocol PRN Reason: Hypoglycemia Protocol Dextrose (Glutose 15) 0 gm PO ONCE PRN; Protocol PRN Reason: Hypoglycemia Protocol Enoxaparin Sodium (Lovenox) 40 mg SC DAILY [facility]; Protocol Last Admin: 01/01/18 09:11 Dose: 40 mg Gabapentin (Neurontin) 300 mg PO HS [facility] Last Admin: 01/01/18 21:32 Dose: 300 mg Glucagon (Glucagen Diagnostic Kit) 0 mg IM STAT PRN; Protocol PRN Reason: Hypoglycemia Protocol Ibuprofen (Motrin Tab) 600 mg PO Q6 PRN PRN Reason: Pain, moderate (4-7) Last Admin: 01/02/18 07:26 Dose: 600 mg Insulin Detemir (Levemir) 10 units SC Q12 [facility] Last Admin: 01/01/18 22:31 Dose: 10 units Insulin Human Lispro (Humalog) 0 units SC ACHS [facility]; Protocol Last Admin: 01/02/18 07:27 Dose: 3 units Losartan Potassium (Cozaar) 50 mg PO DAILY [facility] Last Admin: 01/01/18 09:10 Dose: 50 mg Metformin HCl (Glucophage) 850 mg PO BID [facility] Morphine Sulfate (Morphine) 2 mg IVP Q6 PRN PRN Reason: Pain, severe (8-10) Last Admin: 12/30/17 17:16 Dose: 2 mg - Labs Labs: 12/31/17 05:30 12/31/17 05:30 PT 12.9 Seconds (9.8-13.1) 12/28/17 16:26 INR 1.1 12/28/17 16:26 APTT 34.1 Seconds (25.6-37.1) 12/28/17 16:26 - Constitutional Appears: Non-toxic, No Acute Distress - Head Exam Head Exam: ATRAUMATIC, NORMAL INSPECTION, NORMOCEPHALIC - Eye Exam Eye Exam: Normal appearance - ENT Exam ENT Exam: Mucous Membranes Moist - Neck Exam Neck Exam: Full ROM. absent: Tenderness - Respiratory Exam Respiratory Exam: Clear to Ausculation Bilateral, NORMAL BREATHING PATTERN. absent: Rales, Rhonchi, Wheezes, Respiratory Distress - GI/Abdominal Exam GI & Abdominal Exam: Soft, Normal Bowel Sounds. absent: Distended, Tenderness - Extremities Exam Additional comments: L foot dressing C/D/I, no strike through appreciated - Neurological Exam Neurological Exam: Alert, Awake - Psychiatric Exam Psychiatric exam: Normal Affect, Normal Mood Assessment and Plan - Assessment and Plan (Free Text) Assessment: 62 y/o man w/ pmh of PVD, HTN, DMII, gangrenous right foot s/p TMA (DOS: 08/21/17), R AKA (DOS: 10/12/17), and pancreatic/lung mass, admitted for dry gangrene to L hallux with vascular compromise Plan: 1) Left hallux dry gangrene likely secondary to PVD - Afebrile, WBC 9.1 - L foot X-rays; no osseous abnormality noted - Podiatry consult, Dr. Pham, pending vascular status possible amputation of the L hallux - F/U Vascular surgery, Dr. Hightower, recommendations appreciated - CTA of left LE for Thursday01/04/2018 - C/w Pletal - D/C brilinta - Pain management w/ tylenol and gabapentin - CBC in morning 2) DMII - Uncontrolled, non-compliant with medications - C/w Levemir 10U SC Q12h - Medium lispro/sliding scale - Hypoglycemic protocol - Accu Check [facility] - C/w Lipitor and Gabapentin - Hold metformin for now 3) HTN - Chronic,stable - C/w Coreg 25 BID - Cozzar 50 daily 4) PVD - Chronic - C/w Cilostazol 5) Pancreatic/ lung mass on CT - F/U as outpatient 6) Alcohol abuse/Tobacco use - Educated patient on risks of alcohol and tobacco use 7) DVT PPX - Lovenox 40mg SC daily <Marybeth Roman - Last Filed: 01/02/18 10:57> Objective - Vital Signs/Intake and Output Vital Signs (last 24 hours): Temp Pulse Resp BP Pulse Ox 97.2 F L 91 H 20 148/76 100 01/02/18 08:31 01/02/18 08:31 01/02/18 08:31 01/02/18 08:31 01/02/18 08:31 - Medications Medications: Current Medications Acetaminophen (Tylenol 325mg Tab) 650 mg PO Q6 PRN PRN Reason: Fever >100.4 F Acetaminophen (Tylenol 325mg Tab) 650 mg PO Q6 PRN PRN Reason: Pain, Mild (1-3) Last Admin: 12/29/17 09:33 Dose: 650 mg Atorvastatin Calcium (Lipitor) 40 mg PO DAILY [facility] Last Admin: 01/02/18 09:26 Dose: 40 mg Carvedilol (Coreg) 25 mg PO Q12 [facility] Last Admin: 01/02/18 09:25 Dose: 25 mg Cilostazol (Pletal) 100 mg PO BID [facility] Last Admin: 01/02/18 09:26 Dose: 100 mg Dextrose (Dextrose 50% Inj) 0 ml IV STAT PRN; Protocol PRN Reason: Hypoglycemia Protocol Dextrose (Glutose 15) 0 gm PO ONCE PRN; Protocol PRN Reason: Hypoglycemia Protocol Enoxaparin Sodium (Lovenox) 40 mg SC DAILY [facility]; Protocol Last Admin: 01/02/18 09:27 Dose: 40 mg Gabapentin (Neurontin) 300 mg PO HS [facility] Last Admin: 01/01/18 21:32 Dose: 300 mg Glucagon (Glucagen Diagnostic Kit) 0 mg IM STAT PRN; Protocol PRN Reason: Hypoglycemia Protocol Ibuprofen (Motrin Tab) 600 mg PO Q6 PRN PRN Reason: Pain, moderate (4-7) Last Admin: 01/02/18 07:26 Dose: 600 mg Insulin Detemir (Levemir) 10 units SC Q12 [facility] Last Admin: 01/02/18 09:26 Dose: 10 units Insulin Human Lispro (Humalog) 0 units SC ACHS [facility]; Protocol Last Admin: 01/02/18 07:27 Dose: 3 units Losartan Potassium (Cozaar) 50 mg PO DAILY [facility] Last Admin: 01/02/18 09:25 Dose: 50 mg Metformin HCl (Glucophage) 850 mg PO BID [facility] Morphine Sulfate (Morphine) 2 mg IVP Q6 PRN PRN Reason: Pain, severe (8-10) Last Admin: 12/30/17 17:16 Dose: 2 mg - Labs Labs: 12/31/17 05:30 12/31/17 05:30 PT 12.9 Seconds (9.8-13.1) 12/28/17 16:26 INR 1.1 12/28/17 16:26 APTT 34.1 Seconds (25.6-37.1) 12/28/17 16:26 Attending/Attestation - Attestation I have personally seen and examined this patient.: Yes I have fully participated in the care of the patient.: Yes I have reviewed all pertinent clinical information, including history, physical exam and plan: Yes Notes (Text): 01/02/18 10:57 Seen, examined, and discussed with resident. Agree with findings and plan as above.
[2018-01-02] MEDS: Insulin Detemir 100 Units/ml Inj SC SCH ×2 (09:26→21:30)
[2018-01-02] MEDS: Cilostazol 100 mg Tab UD PO SCH ×2 (09:26→16:42)
[2018-01-02] MEDS: Enoxaparin 40 mg Syringe SC SCH (09:27)
--- NOTE | 2018-01-02 12:51 | CP.PCM.PN ---
Subjective - Date & Time of Evaluation Date of Evaluation: 01/02/18 Time of Evaluation: 12:49 - Subjective Subjective: Podiatry progress note for Dr. Pham, 62 y/o male seen and evaluated for left gangrenous changes to the hallux. Denies acute overnight events. AAOX3 and in NAD. Denies any other pedal complains. States he is in pain and motrin helps with the pain. Denies N/V/F/C/SOB/CP. Objective - Vital Signs/Intake and Output Vital Signs (last 24 hours): Temp Pulse Resp BP Pulse Ox 97.2 F L 91 H 20 148/76 100 01/02/18 08:31 01/02/18 08:31 01/02/18 08:31 01/02/18 08:31 01/02/18 08:31 - Medications Medications: Current Medications Acetaminophen (Tylenol 325mg Tab) 650 mg PO Q6 PRN PRN Reason: Fever >100.4 F Acetaminophen (Tylenol 325mg Tab) 650 mg PO Q6 PRN PRN Reason: Pain, Mild (1-3) Last Admin: 12/29/17 09:33 Dose: 650 mg Atorvastatin Calcium (Lipitor) 40 mg PO DAILY [facility] Last Admin: 01/02/18 09:26 Dose: 40 mg Carvedilol (Coreg) 25 mg PO Q12 [facility] Last Admin: 01/02/18 09:25 Dose: 25 mg Cilostazol (Pletal) 100 mg PO BID [facility] Last Admin: 01/02/18 09:26 Dose: 100 mg Dextrose (Dextrose 50% Inj) 0 ml IV STAT PRN; Protocol PRN Reason: Hypoglycemia Protocol Dextrose (Glutose 15) 0 gm PO ONCE PRN; Protocol PRN Reason: Hypoglycemia Protocol Enoxaparin Sodium (Lovenox) 40 mg SC DAILY [facility]; Protocol Last Admin: 01/02/18 09:27 Dose: 40 mg Gabapentin (Neurontin) 300 mg PO HS [facility] Last Admin: 01/01/18 21:32 Dose: 300 mg Glucagon (Glucagen Diagnostic Kit) 0 mg IM STAT PRN; Protocol PRN Reason: Hypoglycemia Protocol Ibuprofen (Motrin Tab) 600 mg PO Q6 PRN PRN Reason: Pain, moderate (4-7) Last Admin: 01/02/18 07:26 Dose: 600 mg Insulin Detemir (Levemir) 10 units SC Q12 [facility] Last Admin: 01/02/18 09:26 Dose: 10 units Insulin Human Lispro (Humalog) 0 units SC ACHS [facility]; Protocol Last Admin: 01/02/18 12:07 Dose: 6 units Losartan Potassium (Cozaar) 50 mg PO DAILY [facility] Last Admin: 01/02/18 09:25 Dose: 50 mg Metformin HCl (Glucophage) 850 mg PO BID [facility] Morphine Sulfate (Morphine) 2 mg IVP Q6 PRN PRN Reason: Pain, severe (8-10) Last Admin: 12/30/17 17:16 Dose: 2 mg - Labs Labs: 12/31/17 05:30 12/31/17 05:30 PT 12.9 Seconds (9.8-13.1) 12/28/17 16:26 INR 1.1 12/28/17 16:26 APTT 34.1 Seconds (25.6-37.1) 12/28/17 16:26 - Constitutional Appears: Well, Non-toxic, No Acute Distress - Head Exam Head Exam: ATRAUMATIC, NORMOCEPHALIC - Extremities Exam Additional comments: LLE focused exam: Vascular: DP non-palpable PT nonpalpable, TG warm to cool, no evidence of edema Ortho: Right AKA, left pain to the tip of the hallux Neuro: gross sensation intact, protective sensation diminished Derm: Gangrenous changes noted to the hallux distal to the sulcus, closed fissure noted in the sulcus, minimal serous drainage noted. hyperpigmentation noted in the 2-5 toes, no open lesions, no malodor - Neurological Exam Neurological Exam: Alert, Awake, Oriented x3 - Psychiatric Exam Psychiatric exam: Normal Affect, Normal Mood Assessment and Plan - Assessment and Plan (Free Text) Assessment: 62 yo male with gangrenous changes to the left hallux Plan: Patient seen and evaluated afebrile and absent leukocytosis X-rays ordered and reviewed; no osseous abnormality noted left foot dressed with betadine and DSD dudley/pvr - evidence of hemodynamically significant arterial insufficiency in the left lower extremity Vascular consult ordered podiatry plan: pending vascular status amputation of the left hallux podiatry will continue to follow the patient while in house
[2018-01-03] MEDS: Insulin Lispro (humaLOG) 100 Units/ml Inj SC SCH ×4 (07:31→21:02)
--- NOTE | 2018-01-03 08:06 | CP.PCM.PN ---
Subjective - Date & Time of Evaluation Date of Evaluation: 01/03/18 Time of Evaluation: 09:33 - Subjective Subjective: Patient seen and examined at bedside this morning. There are no acute events overnight and is in NAD. Patient reports pain of left toe relieved w/ medication. Patient awaiting CTA on Thursday. Denies N/V/F/SOB/CP/Chills. Objective - Vital Signs/Intake and Output Vital Signs (last 24 hours): Temp Pulse Resp BP Pulse Ox 98.1 F 105 H 20 160/76 H 100 01/02/18 23:35 01/02/18 23:35 01/02/18 23:35 01/02/18 23:35 01/02/18 23:35 - Medications Medications: Current Medications Acetaminophen (Tylenol 325mg Tab) 650 mg PO Q6 PRN PRN Reason: Fever >100.4 F Acetaminophen (Tylenol 325mg Tab) 650 mg PO Q6 PRN PRN Reason: Pain, Mild (1-3) Last Admin: 12/29/17 09:33 Dose: 650 mg Atorvastatin Calcium (Lipitor) 40 mg PO DAILY [facility] Last Admin: 01/02/18 09:26 Dose: 40 mg Carvedilol (Coreg) 25 mg PO Q12 [facility] Last Admin: 01/02/18 21:28 Dose: 25 mg Cilostazol (Pletal) 100 mg PO BID [facility] Last Admin: 01/02/18 16:42 Dose: 100 mg Dextrose (Dextrose 50% Inj) 0 ml IV STAT PRN; Protocol PRN Reason: Hypoglycemia Protocol Dextrose (Glutose 15) 0 gm PO ONCE PRN; Protocol PRN Reason: Hypoglycemia Protocol Enoxaparin Sodium (Lovenox) 40 mg SC DAILY [facility]; Protocol Last Admin: 01/02/18 09:27 Dose: 40 mg Gabapentin (Neurontin) 300 mg PO HS [facility] Last Admin: 01/02/18 21:28 Dose: 300 mg Glucagon (Glucagen Diagnostic Kit) 0 mg IM STAT PRN; Protocol PRN Reason: Hypoglycemia Protocol Ibuprofen (Motrin Tab) 600 mg PO Q6 PRN PRN Reason: Pain, moderate (4-7) Last Admin: 01/03/18 05:49 Dose: 600 mg Insulin Detemir (Levemir) 10 units SC Q12 [facility] Last Admin: 01/02/18 21:30 Dose: 10 units Insulin Human Lispro (Humalog) 0 units SC ACHS [facility]; Protocol Last Admin: 01/03/18 07:31 Dose: 6 units Losartan Potassium (Cozaar) 50 mg PO DAILY [facility] Last Admin: 01/02/18 09:25 Dose: 50 mg Metformin HCl (Glucophage) 850 mg PO BID [facility] - Labs Labs: 12/31/17 05:30 12/31/17 05:30 PT 12.9 Seconds (9.8-13.1) 12/28/17 16:26 INR 1.1 12/28/17 16:26 APTT 34.1 Seconds (25.6-37.1) 12/28/17 16:26 - Constitutional Appears: Non-toxic, No Acute Distress - Head Exam Head Exam: ATRAUMATIC, NORMAL INSPECTION, NORMOCEPHALIC - Eye Exam Eye Exam: Normal appearance - ENT Exam ENT Exam: Mucous Membranes Moist - Neck Exam Neck Exam: Full ROM. absent: Tenderness - Respiratory Exam Respiratory Exam: Clear to Ausculation Bilateral, NORMAL BREATHING PATTERN. absent: Decreased Breath Sounds, Rales, Rhonchi, Wheezes, Respiratory Distress - Cardiovascular Exam Cardiovascular Exam: REGULAR RHYTHM - GI/Abdominal Exam GI & Abdominal Exam: Soft, Normal Bowel Sounds. absent: Distended, Tenderness - Extremities Exam Additional comments: L foot dressing C/D/I, no strike through appreciated - Neurological Exam Neurological Exam: Alert, Awake - Psychiatric Exam Psychiatric exam: Normal Affect, Normal Mood Assessment and Plan - Assessment and Plan (Free Text) Assessment: 62 y/o man w/ pmh of PVD, HTN, DMII, gangrenous right foot s/p TMA (DOS: 08/21/17), R AKA (DOS: 10/12/17), and pancreatic/lung mass, admitted for dry gangrene to L hallux with vascular compromise Plan: 1) Left hallux dry gangrene likely secondary to PVD - Afebrile, WBC 9.1 - L foot X-rays; no osseous abnormality noted - Podiatry consult, Dr. Pham, pending vascular status possible amputation of the L hallux - F/U Vascular surgery, Dr. Hightower, recommendations appreciated - CTA of left LE for Thursday01/04/2018 - C/w Pletal - D/C brilinta - Pain management w/ tylenol and gabapentin - CBC in morning 2) DMII - Uncontrolled, non-compliant with medications - increased Levemir to 15U SC Q12h - Medium lispro/sliding scale - Hypoglycemic protocol - Accu Check [facility] - C/w Lipitor and Gabapentin - DC metformin for now 3) HTN - Chronic,stable - C/w Coreg 25 BID - Cozzar 50 daily 4) PVD - Chronic - C/w Cilostazol 5) Pancreatic/ lung mass on CT - F/U as outpatient 6) Alcohol abuse/Tobacco use - Educated patient on risks of alcohol and tobacco use 7) DVT PPX - Lovenox 40mg SC daily
[2018-01-03] MEDS: Cilostazol 100 mg Tab UD PO SCH ×2 (08:39→16:57)
[2018-01-03] MEDS: Insulin Detemir 100 Units/ml Inj SC SCH ×3 (08:40→20:53)
[2018-01-03] MEDS: Potassium Ch 20mEq in D5-1/2NS 1,000 ML IV SCH (23:45)
[2018-01-04] MEDS: Potassium Ch 20mEq in D5-1/2NS 1,000 ML IV SCH (02:09)
[2018-01-04 06:39] LABS: HEMOGLOBIN 9.1 g/dL (12.0-18.0); MEAN CELL VOLUME 89.8 fl (80.0-94.0); MEAN CORPUSCULAR HEMOGLOBIN 29.3 pg (27.0-31.0); MEAN CORPUSCULAR HGB CONC 32.7 g/dL (33.0-37.0); RBC 3.09 Mil/uL (4.40-5.90); RED CELL DISTRIBUTION WIDTH 14.2 % (11.5-14.5); WHITE BLOOD COUNT 8.3 K/uL (4.8-10.8)
[2018-01-04 06:51] LABS: BLOOD UREA NITROGEN 19 mg/dl (9-20); CALCIUM 9.4 mg/dL (8.4-10.2); GFR NON-AFRICAN AMERICAN > 60
--- NOTE | 2018-01-04 08:57 | CP.PCM.PN ---
Subjective - Date & Time of Evaluation Date of Evaluation: 01/04/18 Time of Evaluation: 08:57 - Subjective Subjective: 62M patient seen and examined at bedside and resting comfortably. Patient is AAOx3 and in NAD. He reports significant pain today to his LLE. Patient is aware he is going for CTA today. Denies N/V/F/SOB/CP. Objective - Vital Signs/Intake and Output Vital Signs (last 24 hours): Temp Pulse Resp BP Pulse Ox 98.1 F 98 H 19 151/79 H 99 01/04/18 07:55 01/04/18 07:55 01/04/18 07:55 01/04/18 07:55 01/04/18 07:55 - Medications Medications: Current Medications Acetaminophen (Tylenol 325mg Tab) 650 mg PO Q6 PRN PRN Reason: Fever >100.4 F Acetaminophen (Tylenol 325mg Tab) 650 mg PO Q6 PRN PRN Reason: Pain, Mild (1-3) Last Admin: 01/03/18 23:34 Dose: 650 mg Atorvastatin Calcium (Lipitor) 40 mg PO DAILY [facility] Last Admin: 01/03/18 08:40 Dose: 40 mg Carvedilol (Coreg) 25 mg PO Q12 [facility] Last Admin: 01/03/18 20:52 Dose: 25 mg Cilostazol (Pletal) 100 mg PO BID [facility] Last Admin: 01/03/18 16:57 Dose: 100 mg Dextrose (Dextrose 50% Inj) 0 ml IV STAT PRN; Protocol PRN Reason: Hypoglycemia Protocol Dextrose (Glutose 15) 0 gm PO ONCE PRN; Protocol PRN Reason: Hypoglycemia Protocol Enoxaparin Sodium (Lovenox) 40 mg SC DAILY [facility]; Protocol Last Admin: 01/02/18 09:27 Dose: 40 mg Gabapentin (Neurontin) 300 mg PO HS [facility] Last Admin: 01/03/18 21:00 Dose: 300 mg Glucagon (Glucagen Diagnostic Kit) 0 mg IM STAT PRN; Protocol PRN Reason: Hypoglycemia Protocol Potassium Chloride/Dextrose/Sod Cl (Potassium Chl 20 Meq In D5-1/2ns) 1,000 mls @ 60 mls/hr IV .[id number] [facility] Stop: 01/04/18 23:44 Last Admin: 01/04/18 02:09 Dose: 60 mls/hr Ibuprofen (Motrin Tab) 600 mg PO Q6 PRN PRN Reason: Pain, moderate (4-7) Last Admin: 01/03/18 20:52 Dose: 600 mg Insulin Detemir (Levemir) 20 units SC Q12 [facility] Insulin Human Lispro (Humalog) 0 units SC ACHS [facility]; Protocol Last Admin: 01/03/18 21:02 Dose: Not Given Ketorolac Tromethamine (Toradol) 15 mg IVP Q6 PRN PRN Reason: Pain, moderate (4-7) Losartan Potassium (Cozaar) 50 mg PO DAILY [facility] Last Admin: 01/03/18 08:41 Dose: 50 mg - Labs Labs: 01/04/18 05:20 01/04/18 05:20 PT 12.9 Seconds (9.8-13.1) 12/28/17 16:26 INR 1.1 12/28/17 16:26 APTT 34.1 Seconds (25.6-37.1) 12/28/17 16:26 - Constitutional Appears: Non-toxic, No Acute Distress - Head Exam Head Exam: ATRAUMATIC, NORMOCEPHALIC - Eye Exam Eye Exam: Normal appearance Pupil Exam: NORMAL ACCOMODATION - ENT Exam ENT Exam: Mucous Membranes Moist - Neck Exam Neck Exam: Normal Inspection - Respiratory Exam Respiratory Exam: Clear to Ausculation Bilateral, NORMAL BREATHING PATTERN - Cardiovascular Exam Cardiovascular Exam: REGULAR RHYTHM - GI/Abdominal Exam GI & Abdominal Exam: Soft - Neurological Exam Neurological Exam: Alert, Awake, Oriented x3 - Psychiatric Exam Psychiatric exam: Normal Affect, Normal Mood - Skin Skin Exam: Warm Assessment and Plan - Assessment and Plan (Free Text) Assessment: 62M with PMHx of PVD, HTN, DMII, gangrenous right foot s/p TMA (DOS: 08/21/17), R AKA (DOS: 10/12/17), and pancreatic/lung mass, admitted for dry gangrene to L hallux with vascular compromise Plan: 1) Left hallux dry gangrene likely secondary to PVD - Afebrile, WBC 9.1 - L foot X-rays; no osseous abnormality noted - Podiatry consult, Dr. Pham, pending vascular status possible amputation of the L hallux - F/U Vascular surgery, Dr. Hightower, recommendations appreciated - CTA of left LE for Thursday01/04/2018 - C/w Pletal - Pain management w/ tylenol and gabapentin 2) DMII - Uncontrolled, non-compliant with medications - Increased Levemir to 15U SC Q12h - Medium lispro/sliding scale - Hypoglycemic protocol - Accu Check [facility] - C/w Lipitor and Gabapentin 3) HTN - Chronic,stable - C/w Coreg 25 BID - Cozzar 50 daily 4) PVD - Chronic - C/w Cilostazol 5) Pancreatic/ lung mass on CT - F/U as outpatient 6) Alcohol abuse/Tobacco use - Educated patient on risks of alcohol and tobacco use 7) DVT PPX - Lovenox 40mg SC daily
[2018-01-04] MEDS: Insulin Detemir 100 Units/ml Inj SC SCH ×2 (09:41→23:57)
[2018-01-04] MEDS: Insulin Lispro (humaLOG) 100 Units/ml Inj SC SCH ×4 (09:45→23:59)
[2018-01-04] MEDS ORDERED: Iodixanol 320 MG/ML 100 ML BOTTLE IV ONE ×2 (12:50→13:37)
[2018-01-04] MEDS ORDERED: Sodium Chloride 0.9% 50 ML IV ONE (12:50)
[2018-01-04] MEDS: Cilostazol 100 mg Tab UD PO SCH ×2 (16:17→16:18)
--- NOTE | 2018-01-04 22:30 | CP.PCM.CON ---
History of Present Illness - History of Present Illness History of Present Illness: Consultation for evaluation of PVD HPI: El Medley is a pleasant 61-year-old male with past medical history significant for severe vascular occlusive disease gangrenous right foot status post TMA on August 21, 2017 status post right AKA done on October 12, 2017 diabetes mellitus pancreatic/lung mass on CAT scan hypertension admitted on 12 with complaints of left great toe pain ongoing for a month prior to presentation patient said he started to have significant discomfort in the left lower extremity initially 4 out of 10 and subsequently started having discomfort with ambulation initially Advil was helping relieve the pain but subsequently started to get worse. Patient did not follow-up with me in the office. Past medical history as stated above significant for hypertension peripheral vascular occlusive disease. Past surgical history significant for left cholecystectomy SFA stent gangrenous right foot status post TMA status post right AKA allergies no known drug allergies social history [id number] history of smoking alcohol occasional social drinker family history unknown. Review of Systems - Review of Systems Systems not reviewed;Unavailable: Acuity of Condition - Constitutional Constitutional: As Per HPI - EENT Eyes: As Per HPI Ears: As Per HPI Nose/Mouth/Throat: As Per HPI - Cardiovascular Cardiovascular: As Per HPI - Respiratory Respiratory: As Per HPI - Gastrointestinal Gastrointestinal: As Per HPI - Genitourinary Genitourinary: As Per HPI - Reproductive: Male Reproductive:Male: As Per HPI - Musculoskeletal Musculoskeletal: As Per HPI - Integumentary Integumentary: As Per HPI - Neurological Neurological: As Per HPI - Psychiatric Psychiatric: As Per HPI - Endocrine Endocrine: As Per HPI - Hematologic/Lymphatic Hematologic: As Per HPI Past Patient History - Infectious Disease Hx of Infectious Diseases: None - Past Medical History & Family History Past Medical History?: Yes - Past Social History Smoking Status: Current Some Days Smoker - CARDIAC Hx Hypercholesterolemia: Yes Hx Hypertension: Yes - PULMONARY Hx Pneumonia: Yes - NEUROLOGICAL Hx Neurological Disorder: No - HEENT Hx HEENT Problems: No - RENAL Hx Chronic Kidney Disease: No - ENDOCRINE/METABOLIC Hx Endocrine Disorders: Yes Hx Diabetes Mellitus Type 2: Yes - HEMATOLOGICAL/ONCOLOGICAL Hx Human Immunodeficiency Virus (HIV): No - INTEGUMENTARY Hx Dermatological Problems: No - MUSCULOSKELETAL/RHEUMATOLOGICAL Hx Musculoskeletal Disorders: Yes Hx Falls: Yes Hx Fractures: No - GASTROINTESTINAL Hx Gall Bladder Disease: Yes - GENITOURINARY/GYNECOLOGICAL Hx Genitourinary Disorders: No - PSYCHIATRIC Hx Psychophysiologic Disorder: No Hx Substance Use: No - SURGICAL HISTORY Hx Surgeries: Yes Hx Amputation: Yes (R above knee amputation Sep 2017) Hx Cholecystectomy: Yes Other/Comment: Gallstones removed. Left arm surgery. fluid removed from his lung - ANESTHESIA Hx Anesthesia: Yes Hx Anesthesia Reactions: No Hx Malignant Hyperthermia: No Meds Allergies/Adverse Reactions: Allergies Allergy/AdvReac Type Severity Reaction Status Date / Time garlic Allergy Mild RASH Verified 12/29/17 13:54 - Medications Medications: Current Medications Acetaminophen (Tylenol 325mg Tab) 650 mg PO Q6 PRN PRN Reason: Fever >100.4 F Acetaminophen (Tylenol 325mg Tab) 650 mg PO Q6 PRN PRN Reason: Pain, Mild (1-3) Last Admin: 01/03/18 23:34 Dose: 650 mg Atorvastatin Calcium (Lipitor) 40 mg PO DAILY [facility] Last Admin: 01/04/18 16:18 Dose: 40 mg Carvedilol (Coreg) 25 mg PO Q12 [facility] Last Admin: 01/04/18 09:35 Dose: 25 mg Cilostazol (Pletal) 100 mg PO BID [facility] Last Admin: 01/04/18 16:18 Dose: 100 mg Dextrose (Dextrose 50% Inj) 0 ml IV STAT PRN; Protocol PRN Reason: Hypoglycemia Protocol Dextrose (Glutose 15) 0 gm PO ONCE PRN; Protocol PRN Reason: Hypoglycemia Protocol Enoxaparin Sodium (Lovenox) 40 mg SC DAILY [facility]; Protocol Last Admin: 01/02/18 09:27 Dose: 40 mg Gabapentin (Neurontin) 300 mg PO HS [facility] Last Admin: 01/03/18 21:00 Dose: 300 mg Glucagon (Glucagen Diagnostic Kit) 0 mg IM STAT PRN; Protocol PRN Reason: Hypoglycemia Protocol Potassium Chloride/Dextrose/Sod Cl (Potassium Chl 20 Meq In D5-1/2ns) 1,000 mls @ 60 mls/hr IV .[id number] [facility] Stop: 01/04/18 23:44 Last Admin: 01/04/18 02:09 Dose: 60 mls/hr Ibuprofen (Motrin Tab) 600 mg PO Q6 PRN PRN Reason: Pain, moderate (4-7) Last Admin: 01/03/18 20:52 Dose: 600 mg Insulin Detemir (Levemir) 20 units SC Q12 [facility] Last Admin: 01/04/18 09:41 Dose: 20 units Insulin Human Lispro (Humalog) 0 units SC ACHS [facility]; Protocol Last Admin: 01/04/18 16:45 Dose: 4 units Ketorolac Tromethamine (Toradol) 15 mg IVP Q6 PRN PRN Reason: Pain, moderate (4-7) Last Admin: 01/04/18 16:15 Dose: 15 mg Losartan Potassium (Cozaar) 50 mg PO DAILY [facility] Last Admin: 01/04/18 09:35 Dose: 50 mg Physical Exam - Constitutional Appears: Well - Head Exam Head Exam: ATRAUMATIC, NORMAL INSPECTION, NORMOCEPHALIC - Eye Exam Eye Exam: EOMI, Normal appearance, PERRL Pupil Exam: NORMAL ACCOMODATION, PERRL - ENT Exam ENT Exam: Mucous Membranes Moist, Normal Exam - Neck Exam Neck exam: Positive for: Normal Inspection - Respiratory Exam Respiratory Exam: Clear to Auscultation Bilateral, NORMAL BREATHING PATTERN - Cardiovascular Exam Cardiovascular Exam: REGULAR RHYTHM - GI/Abdominal Exam GI & Abdominal Exam: Normal Bowel Sounds, Soft. absent: Tenderness - Extremities Exam Additional comments: R AKA - Back Exam Back exam: NORMAL INSPECTION - Neurological Exam Neurological exam: Alert, CN II-XII Intact, Normal Gait, Oriented x3, Reflexes Normal - Psychiatric Exam Psychiatric exam: Normal Affect, Normal Mood - Skin Skin Exam: Dry, Intact, Normal Color, Warm Results - Vital Signs Recent Vital Signs: Last Vital Signs Temp 97.5 F L 01/04/18 16:07 Pulse 92 H 01/04/18 16:07 Resp 18 01/04/18 16:07 BP 143/70 01/04/18 16:07 Pulse Ox 100 01/04/18 16:07 - Labs Result Diagrams: 01/04/18 05:20 01/04/18 05:20 Labs: Laboratory Results - last 24 hr 01/04/18 01/04/18 01/04/18 05:16 05:20 05:20 WBC 8.3 RBC 3.09 L Hgb 9.1 L Hct 27.8 L MCV 89.8 MCH 29.3 MCHC 32.7 L RDW 14.2 Plt Count 605 H Sodium 137 Potassium 4.7 Chloride 105 Carbon Dioxide 24 Anion Gap 13 BUN 19 Creatinine 0.8 Est GFR ( Amer) > 60 Est GFR (Non-Af Amer) > 60 POC Glucose (mg/dL) 314 H Random Glucose 327 H Calcium 9.4 01/04/18 01/04/18 01/04/18 10:37 16:41 21:42 WBC RBC Hgb Hct MCV MCH MCHC RDW Plt Count Sodium Potassium Chloride Carbon Dioxide Anion Gap BUN Creatinine Est GFR ( Amer) Est GFR (Non-Af Amer) POC Glucose (mg/dL) 293 H 274 H 432 H* Random Glucose Calcium Assessment & Plan (1) Gangrene of foot Assessment and Plan: dudley/pvr reviewed distal sfa blunting of gradients cta Status: Acute (2) Gangrene due to arterial insufficiency Status: Acute (3) Hypertension Status: Acute
--- NOTE | 2018-01-04 22:35 | CP.PCM.PN ---
Subjective - Date & Time of Evaluation Date of Evaluation: 12/31/17 Time of Evaluation: 14:00 - Subjective Subjective: c/o LLE discomfort Objective - Vital Signs/Intake and Output Vital Signs (last 24 hours): Temp Pulse Resp BP Pulse Ox 97.5 F L 92 H 18 143/70 100 01/04/18 16:07 01/04/18 16:07 01/04/18 16:07 01/04/18 16:07 01/04/18 16:07 - Medications Medications: Current Medications Acetaminophen (Tylenol 325mg Tab) 650 mg PO Q6 PRN PRN Reason: Fever >100.4 F Acetaminophen (Tylenol 325mg Tab) 650 mg PO Q6 PRN PRN Reason: Pain, Mild (1-3) Last Admin: 01/03/18 23:34 Dose: 650 mg Atorvastatin Calcium (Lipitor) 40 mg PO DAILY [facility] Last Admin: 01/04/18 16:18 Dose: 40 mg Carvedilol (Coreg) 25 mg PO Q12 [facility] Last Admin: 01/04/18 09:35 Dose: 25 mg Cilostazol (Pletal) 100 mg PO BID [facility] Last Admin: 01/04/18 16:18 Dose: 100 mg Dextrose (Dextrose 50% Inj) 0 ml IV STAT PRN; Protocol PRN Reason: Hypoglycemia Protocol Dextrose (Glutose 15) 0 gm PO ONCE PRN; Protocol PRN Reason: Hypoglycemia Protocol Enoxaparin Sodium (Lovenox) 40 mg SC DAILY [facility]; Protocol Last Admin: 01/02/18 09:27 Dose: 40 mg Gabapentin (Neurontin) 300 mg PO HS [facility] Last Admin: 01/03/18 21:00 Dose: 300 mg Glucagon (Glucagen Diagnostic Kit) 0 mg IM STAT PRN; Protocol PRN Reason: Hypoglycemia Protocol Potassium Chloride/Dextrose/Sod Cl (Potassium Chl 20 Meq In D5-1/2ns) 1,000 mls @ 60 mls/hr IV .[id number] [facility] Stop: 01/04/18 23:44 Last Admin: 01/04/18 02:09 Dose: 60 mls/hr Ibuprofen (Motrin Tab) 600 mg PO Q6 PRN PRN Reason: Pain, moderate (4-7) Last Admin: 01/03/18 20:52 Dose: 600 mg Insulin Detemir (Levemir) 20 units SC Q12 [facility] Last Admin: 01/04/18 09:41 Dose: 20 units Insulin Human Lispro (Humalog) 0 units SC ACHS [facility]; Protocol Last Admin: 01/04/18 16:45 Dose: 4 units Ketorolac Tromethamine (Toradol) 15 mg IVP Q6 PRN PRN Reason: Pain, moderate (4-7) Last Admin: 01/04/18 16:15 Dose: 15 mg Losartan Potassium (Cozaar) 50 mg PO DAILY [facility] Last Admin: 01/04/18 09:35 Dose: 50 mg - Labs Labs: 01/04/18 05:20 01/04/18 05:20 PT 12.9 Seconds (9.8-13.1) 12/28/17 16:26 INR 1.1 12/28/17 16:26 APTT 34.1 Seconds (25.6-37.1) 12/28/17 16:26 - Constitutional Appears: Well - Head Exam Head Exam: ATRAUMATIC, NORMAL INSPECTION, NORMOCEPHALIC - Eye Exam Eye Exam: EOMI, Normal appearance, PERRL Pupil Exam: NORMAL ACCOMODATION, PERRL - ENT Exam ENT Exam: Mucous Membranes Moist, Normal Exam - Neck Exam Neck Exam: Full ROM, Normal Inspection. absent: Lymphadenopathy - Respiratory Exam Respiratory Exam: Clear to Ausculation Bilateral, NORMAL BREATHING PATTERN - Cardiovascular Exam Cardiovascular Exam: REGULAR RHYTHM, +S1, +S2. absent: Murmur - GI/Abdominal Exam GI & Abdominal Exam: Soft, Normal Bowel Sounds. absent: Tenderness - Extremities Exam Extremities Exam: Full ROM, Normal Capillary Refill, Normal Inspection. absent: Joint Swelling, Pedal Edema - Back Exam Back Exam: NORMAL INSPECTION - Neurological Exam Neurological Exam: Alert, Awake, CN II-XII Intact, Normal Gait, Oriented x3 - Psychiatric Exam Psychiatric exam: Normal Affect, Normal Mood - Skin Skin Exam: Dry, Intact, Normal Color, Warm Assessment and Plan (1) Gangrene of foot Status: Acute (2) Gangrene due to arterial insufficiency Status: Acute (3) Hypertension Status: Acute
--- NOTE | 2018-01-04 22:36 | CP.PCM.PN ---
Subjective - Date & Time of Evaluation Date of Evaluation: 12/30/17 Time of Evaluation: 11:00 - Subjective Subjective: LLE discomfort on abx Objective - Vital Signs/Intake and Output Vital Signs (last 24 hours): Temp Pulse Resp BP Pulse Ox 97.5 F L 92 H 18 143/70 100 01/04/18 16:07 01/04/18 16:07 01/04/18 16:07 01/04/18 16:07 01/04/18 16:07 - Medications Medications: Current Medications Acetaminophen (Tylenol 325mg Tab) 650 mg PO Q6 PRN PRN Reason: Fever >100.4 F Acetaminophen (Tylenol 325mg Tab) 650 mg PO Q6 PRN PRN Reason: Pain, Mild (1-3) Last Admin: 01/03/18 23:34 Dose: 650 mg Atorvastatin Calcium (Lipitor) 40 mg PO DAILY [facility] Last Admin: 01/04/18 16:18 Dose: 40 mg Carvedilol (Coreg) 25 mg PO Q12 [facility] Last Admin: 01/04/18 09:35 Dose: 25 mg Cilostazol (Pletal) 100 mg PO BID [facility] Last Admin: 01/04/18 16:18 Dose: 100 mg Dextrose (Dextrose 50% Inj) 0 ml IV STAT PRN; Protocol PRN Reason: Hypoglycemia Protocol Dextrose (Glutose 15) 0 gm PO ONCE PRN; Protocol PRN Reason: Hypoglycemia Protocol Enoxaparin Sodium (Lovenox) 40 mg SC DAILY [facility]; Protocol Last Admin: 01/02/18 09:27 Dose: 40 mg Gabapentin (Neurontin) 300 mg PO HS [facility] Last Admin: 01/03/18 21:00 Dose: 300 mg Glucagon (Glucagen Diagnostic Kit) 0 mg IM STAT PRN; Protocol PRN Reason: Hypoglycemia Protocol Potassium Chloride/Dextrose/Sod Cl (Potassium Chl 20 Meq In D5-1/2ns) 1,000 mls @ 60 mls/hr IV .[id number] [facility] Stop: 01/04/18 23:44 Last Admin: 01/04/18 02:09 Dose: 60 mls/hr Ibuprofen (Motrin Tab) 600 mg PO Q6 PRN PRN Reason: Pain, moderate (4-7) Last Admin: 01/03/18 20:52 Dose: 600 mg Insulin Detemir (Levemir) 20 units SC Q12 [facility] Last Admin: 01/04/18 09:41 Dose: 20 units Insulin Human Lispro (Humalog) 0 units SC ACHS [facility]; Protocol Last Admin: 01/04/18 16:45 Dose: 4 units Ketorolac Tromethamine (Toradol) 15 mg IVP Q6 PRN PRN Reason: Pain, moderate (4-7) Last Admin: 01/04/18 16:15 Dose: 15 mg Losartan Potassium (Cozaar) 50 mg PO DAILY [facility] Last Admin: 01/04/18 09:35 Dose: 50 mg - Labs Labs: 01/04/18 05:20 01/04/18 05:20 PT 12.9 Seconds (9.8-13.1) 12/28/17 16:26 INR 1.1 12/28/17 16:26 APTT 34.1 Seconds (25.6-37.1) 12/28/17 16:26 - Constitutional Appears: Well - Head Exam Head Exam: ATRAUMATIC, NORMAL INSPECTION, NORMOCEPHALIC - Eye Exam Eye Exam: EOMI, Normal appearance, PERRL Pupil Exam: NORMAL ACCOMODATION, PERRL - ENT Exam ENT Exam: Mucous Membranes Moist, Normal Exam - Neck Exam Neck Exam: Full ROM, Normal Inspection. absent: Lymphadenopathy - Respiratory Exam Respiratory Exam: Clear to Ausculation Bilateral, NORMAL BREATHING PATTERN - Cardiovascular Exam Cardiovascular Exam: REGULAR RHYTHM, +S1, +S2. absent: Murmur - GI/Abdominal Exam GI & Abdominal Exam: Soft, Normal Bowel Sounds. absent: Tenderness - Extremities Exam Extremities Exam: Full ROM, Normal Capillary Refill, Normal Inspection. absent: Joint Swelling, Pedal Edema - Back Exam Back Exam: NORMAL INSPECTION - Neurological Exam Neurological Exam: Alert, Awake, CN II-XII Intact, Normal Gait, Oriented x3 - Psychiatric Exam Psychiatric exam: Normal Affect, Normal Mood - Skin Skin Exam: Dry, Intact, Normal Color, Warm Assessment and Plan (1) Gangrene of foot Status: Acute (2) Gangrene due to arterial insufficiency Status: Acute (3) Hypertension Status: Acute
--- NOTE | 2018-01-04 22:38 | CP.PCM.PN ---
Subjective - Date & Time of Evaluation Date of Evaluation: 01/01/18 Time of Evaluation: 11:00 - Subjective Subjective: CTA pending on abx Objective - Vital Signs/Intake and Output Vital Signs (last 24 hours): Temp Pulse Resp BP Pulse Ox 97.5 F L 92 H 18 143/70 100 01/04/18 16:07 01/04/18 16:07 01/04/18 16:07 01/04/18 16:07 01/04/18 16:07 - Medications Medications: Current Medications Acetaminophen (Tylenol 325mg Tab) 650 mg PO Q6 PRN PRN Reason: Fever >100.4 F Acetaminophen (Tylenol 325mg Tab) 650 mg PO Q6 PRN PRN Reason: Pain, Mild (1-3) Last Admin: 01/03/18 23:34 Dose: 650 mg Atorvastatin Calcium (Lipitor) 40 mg PO DAILY [facility] Last Admin: 01/04/18 16:18 Dose: 40 mg Carvedilol (Coreg) 25 mg PO Q12 [facility] Last Admin: 01/04/18 09:35 Dose: 25 mg Cilostazol (Pletal) 100 mg PO BID [facility] Last Admin: 01/04/18 16:18 Dose: 100 mg Dextrose (Dextrose 50% Inj) 0 ml IV STAT PRN; Protocol PRN Reason: Hypoglycemia Protocol Dextrose (Glutose 15) 0 gm PO ONCE PRN; Protocol PRN Reason: Hypoglycemia Protocol Enoxaparin Sodium (Lovenox) 40 mg SC DAILY [facility]; Protocol Last Admin: 01/02/18 09:27 Dose: 40 mg Gabapentin (Neurontin) 300 mg PO HS [facility] Last Admin: 01/03/18 21:00 Dose: 300 mg Glucagon (Glucagen Diagnostic Kit) 0 mg IM STAT PRN; Protocol PRN Reason: Hypoglycemia Protocol Potassium Chloride/Dextrose/Sod Cl (Potassium Chl 20 Meq In D5-1/2ns) 1,000 mls @ 60 mls/hr IV .[id number] [facility] Stop: 01/04/18 23:44 Last Admin: 01/04/18 02:09 Dose: 60 mls/hr Ibuprofen (Motrin Tab) 600 mg PO Q6 PRN PRN Reason: Pain, moderate (4-7) Last Admin: 01/03/18 20:52 Dose: 600 mg Insulin Detemir (Levemir) 20 units SC Q12 [facility] Last Admin: 01/04/18 09:41 Dose: 20 units Insulin Human Lispro (Humalog) 0 units SC ACHS [facility]; Protocol Last Admin: 01/04/18 16:45 Dose: 4 units Ketorolac Tromethamine (Toradol) 15 mg IVP Q6 PRN PRN Reason: Pain, moderate (4-7) Last Admin: 01/04/18 16:15 Dose: 15 mg Losartan Potassium (Cozaar) 50 mg PO DAILY [facility] Last Admin: 01/04/18 09:35 Dose: 50 mg - Labs Labs: 01/04/18 05:20 01/04/18 05:20 PT 12.9 Seconds (9.8-13.1) 12/28/17 16:26 INR 1.1 12/28/17 16:26 APTT 34.1 Seconds (25.6-37.1) 12/28/17 16:26 - Constitutional Appears: Well - Head Exam Head Exam: ATRAUMATIC, NORMAL INSPECTION, NORMOCEPHALIC - Eye Exam Eye Exam: EOMI, Normal appearance, PERRL Pupil Exam: NORMAL ACCOMODATION, PERRL - ENT Exam ENT Exam: Mucous Membranes Moist, Normal Exam - Neck Exam Neck Exam: Full ROM, Normal Inspection. absent: Lymphadenopathy - Respiratory Exam Respiratory Exam: Clear to Ausculation Bilateral, NORMAL BREATHING PATTERN - Cardiovascular Exam Cardiovascular Exam: REGULAR RHYTHM, +S1, +S2. absent: Murmur - GI/Abdominal Exam GI & Abdominal Exam: Soft, Normal Bowel Sounds. absent: Tenderness - Extremities Exam Extremities Exam: Full ROM, Normal Capillary Refill, Normal Inspection. absent: Joint Swelling, Pedal Edema - Back Exam Back Exam: NORMAL INSPECTION - Neurological Exam Neurological Exam: Alert, Awake, CN II-XII Intact, Normal Gait, Oriented x3 - Psychiatric Exam Psychiatric exam: Normal Affect, Normal Mood - Skin Skin Exam: Dry, Intact, Normal Color, Warm Assessment and Plan (1) Gangrene of foot Status: Acute (2) Gangrene due to arterial insufficiency Status: Acute (3) Hypertension Status: Acute
--- NOTE | 2018-01-04 22:42 | CP.PCM.PN ---
Subjective - Date & Time of Evaluation Date of Evaluation: 01/04/18 Time of Evaluation: 13:00 - Subjective Subjective: cta to be done today Objective - Vital Signs/Intake and Output Vital Signs (last 24 hours): Temp Pulse Resp BP Pulse Ox 97.5 F L 92 H 18 143/70 100 01/04/18 16:07 01/04/18 16:07 01/04/18 16:07 01/04/18 16:07 01/04/18 16:07 - Medications Medications: Current Medications Acetaminophen (Tylenol 325mg Tab) 650 mg PO Q6 PRN PRN Reason: Fever >100.4 F Acetaminophen (Tylenol 325mg Tab) 650 mg PO Q6 PRN PRN Reason: Pain, Mild (1-3) Last Admin: 01/03/18 23:34 Dose: 650 mg Atorvastatin Calcium (Lipitor) 40 mg PO DAILY [facility] Last Admin: 01/04/18 16:18 Dose: 40 mg Carvedilol (Coreg) 25 mg PO Q12 [facility] Last Admin: 01/04/18 09:35 Dose: 25 mg Cilostazol (Pletal) 100 mg PO BID [facility] Last Admin: 01/04/18 16:18 Dose: 100 mg Dextrose (Dextrose 50% Inj) 0 ml IV STAT PRN; Protocol PRN Reason: Hypoglycemia Protocol Dextrose (Glutose 15) 0 gm PO ONCE PRN; Protocol PRN Reason: Hypoglycemia Protocol Enoxaparin Sodium (Lovenox) 40 mg SC DAILY [facility]; Protocol Last Admin: 01/02/18 09:27 Dose: 40 mg Gabapentin (Neurontin) 300 mg PO HS [facility] Last Admin: 01/03/18 21:00 Dose: 300 mg Glucagon (Glucagen Diagnostic Kit) 0 mg IM STAT PRN; Protocol PRN Reason: Hypoglycemia Protocol Potassium Chloride/Dextrose/Sod Cl (Potassium Chl 20 Meq In D5-1/2ns) 1,000 mls @ 60 mls/hr IV .[id number] [facility] Stop: 01/04/18 23:44 Last Admin: 01/04/18 02:09 Dose: 60 mls/hr Ibuprofen (Motrin Tab) 600 mg PO Q6 PRN PRN Reason: Pain, moderate (4-7) Last Admin: 01/03/18 20:52 Dose: 600 mg Insulin Detemir (Levemir) 20 units SC Q12 [facility] Last Admin: 01/04/18 09:41 Dose: 20 units Insulin Human Lispro (Humalog) 0 units SC ACHS [facility]; Protocol Last Admin: 01/04/18 16:45 Dose: 4 units Ketorolac Tromethamine (Toradol) 15 mg IVP Q6 PRN PRN Reason: Pain, moderate (4-7) Last Admin: 01/04/18 16:15 Dose: 15 mg Losartan Potassium (Cozaar) 50 mg PO DAILY [facility] Last Admin: 01/04/18 09:35 Dose: 50 mg - Labs Labs: 01/04/18 05:20 01/04/18 05:20 PT 12.9 Seconds (9.8-13.1) 12/28/17 16:26 INR 1.1 12/28/17 16:26 APTT 34.1 Seconds (25.6-37.1) 12/28/17 16:26 - Constitutional Appears: Well - Head Exam Head Exam: ATRAUMATIC, NORMAL INSPECTION, NORMOCEPHALIC - Eye Exam Eye Exam: EOMI, Normal appearance, PERRL Pupil Exam: NORMAL ACCOMODATION, PERRL - ENT Exam ENT Exam: Mucous Membranes Moist, Normal Exam - Neck Exam Neck Exam: Full ROM, Normal Inspection. absent: Lymphadenopathy - Respiratory Exam Respiratory Exam: Clear to Ausculation Bilateral, NORMAL BREATHING PATTERN - Cardiovascular Exam Cardiovascular Exam: REGULAR RHYTHM, +S1, +S2. absent: Murmur - GI/Abdominal Exam GI & Abdominal Exam: Soft, Normal Bowel Sounds. absent: Tenderness - Extremities Exam Extremities Exam: Full ROM, Normal Capillary Refill, Normal Inspection. 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
--- NOTE | 2018-01-05 07:45 | CP.PCM.PN ---
Subjective - Date & Time of Evaluation Date of Evaluation: 01/05/18 Time of Evaluation: 07:44 - Subjective Subjective: severe left distal sfa/pop disease plan for peripheral angio at [facility] to be scheduled tomorrow Objective - Vital Signs/Intake and Output Vital Signs (last 24 hours): Temp Pulse Resp BP Pulse Ox 100.0 F H 112 H 20 163/77 H 100 01/04/18 23:45 01/04/18 23:45 01/04/18 23:45 01/04/18 23:45 01/04/18 23:45 - Medications Medications: Current Medications Acetaminophen (Tylenol 325mg Tab) 650 mg PO Q6 PRN PRN Reason: Fever >100.4 F Acetaminophen (Tylenol 325mg Tab) 650 mg PO Q6 PRN PRN Reason: Pain, Mild (1-3) Last Admin: 01/03/18 23:34 Dose: 650 mg Atorvastatin Calcium (Lipitor) 40 mg PO DAILY [facility] Last Admin: 01/04/18 16:18 Dose: 40 mg Carvedilol (Coreg) 25 mg PO Q12 [facility] Last Admin: 01/04/18 23:29 Dose: 25 mg Cilostazol (Pletal) 100 mg PO BID [facility] Last Admin: 01/04/18 16:18 Dose: 100 mg Dextrose (Dextrose 50% Inj) 0 ml IV STAT PRN; Protocol PRN Reason: Hypoglycemia Protocol Dextrose (Glutose 15) 0 gm PO ONCE PRN; Protocol PRN Reason: Hypoglycemia Protocol Enoxaparin Sodium (Lovenox) 40 mg SC DAILY [facility]; Protocol Last Admin: 01/02/18 09:27 Dose: 40 mg Gabapentin (Neurontin) 300 mg PO HS [facility] Last Admin: 01/04/18 23:29 Dose: 300 mg Glucagon (Glucagen Diagnostic Kit) 0 mg IM STAT PRN; Protocol PRN Reason: Hypoglycemia Protocol Ibuprofen (Motrin Tab) 600 mg PO Q6 PRN PRN Reason: Pain, moderate (4-7) Last Admin: 01/05/18 03:30 Dose: 600 mg Insulin Detemir (Levemir) 20 units SC Q12 [facility] Last Admin: 01/04/18 23:57 Dose: 20 units Insulin Human Lispro (Humalog) 0 units SC [facility]; Protocol Last Admin: 01/04/18 23:59 Dose: 4 units Ketorolac Tromethamine (Toradol) 15 mg IVP Q6 PRN PRN Reason: Pain, moderate (4-7) Last Admin: 01/05/18 06:34 Dose: 15 mg Losartan Potassium (Cozaar) 50 mg PO DAILY [facility] Last Admin: 01/04/18 09:35 Dose: 50 mg - Labs Labs: 01/04/18 05:20 01/04/18 05:20 PT 12.9 Seconds (9.8-13.1) 12/28/17 16:26 INR 1.1 12/28/17 16:26 APTT 34.1 Seconds (25.6-37.1) 12/28/17 16:26 - Constitutional Appears: Well - Head Exam Head Exam: ATRAUMATIC, NORMAL INSPECTION, NORMOCEPHALIC - Eye Exam Eye Exam: EOMI, Normal appearance, PERRL Pupil Exam: NORMAL ACCOMODATION, PERRL - ENT Exam ENT Exam: Mucous Membranes Moist, Normal Exam - Neck Exam Neck Exam: Full ROM, Normal Inspection. absent: Lymphadenopathy - Respiratory Exam Respiratory Exam: Clear to Ausculation Bilateral, NORMAL BREATHING PATTERN - Cardiovascular Exam Cardiovascular Exam: REGULAR RHYTHM, +S1, +S2. absent: Murmur - GI/Abdominal Exam GI & Abdominal Exam: Soft, Normal Bowel Sounds. absent: Tenderness - Extremities Exam Extremities Exam: Full ROM, Normal Capillary Refill, Normal Inspection. absent: Joint Swelling, Pedal Edema - Back Exam Back Exam: NORMAL INSPECTION - Neurological Exam Neurological Exam: Alert, Awake, CN II-XII Intact, Normal Gait, Oriented x3 - Psychiatric Exam Psychiatric exam: Normal Affect, Normal Mood - Skin Skin Exam: Dry, Intact, Normal Color, Warm Assessment and Plan (1) Gangrene of foot Assessment & Plan: add asa + plavix cont losartan cont statins add coreg plan for peripheral angio tomorrow at [facility] Status: Acute (2) Gangrene due to arterial insufficiency Status: Acute (3) Hypertension Assessment & Plan: cont losartan add coreg 12.5mg po bid Status: Acute
[2018-01-05] MEDS: Insulin Lispro (humaLOG) 100 Units/ml Inj SC SCH ×4 (09:22→23:01)
[2018-01-05] MEDS: Insulin Detemir 100 Units/ml Inj SC SCH ×2 (09:22→23:04)
[2018-01-05] MEDS: Cilostazol 100 mg Tab UD PO SCH ×2 (09:23→17:18)
[2018-01-05] MEDS: Enoxaparin 40 mg Syringe SC SCH (09:23)
--- NOTE | 2018-01-05 09:49 | CP.PCM.PN ---
<Sylvia Navarrete - Last Filed: 01/05/18 10:09> Subjective - Date & Time of Evaluation Date of Evaluation: 01/05/18 Time of Evaluation: 09:49 - Subjective Subjective: 62M patient seen and examined at bedside. Patient AAOx3 and in NAD. He reports pain to the L lower extremity however, reports the pain is better than yesterday. Patient reports he did not sleep well last night due to noise in the halls and his neighbor. Patient is aware of plan for angiogram tomorrow at [facility] with Dr. Hightower. Denies N/V/F/SOB/CP. Objective - Vital Signs/Intake and Output Vital Signs (last 24 hours): Temp Pulse Resp BP Pulse Ox 98.2 F 92 H 19 135/72 100 01/05/18 07:55 01/05/18 09:21 01/05/18 07:55 01/05/18 09:21 01/05/18 07:55 - Medications Medications: Current Medications Acetaminophen (Tylenol 325mg Tab) 650 mg PO Q6 PRN PRN Reason: Fever >100.4 F Acetaminophen (Tylenol 325mg Tab) 650 mg PO Q6 PRN PRN Reason: Pain, Mild (1-3) Last Admin: 01/03/18 23:34 Dose: 650 mg Atorvastatin Calcium (Lipitor) 40 mg PO DAILY [facility] Last Admin: 01/05/18 09:23 Dose: 40 mg Carvedilol (Coreg) 25 mg PO Q12 [facility] Last Admin: 01/05/18 09:21 Dose: 25 mg Cilostazol (Pletal) 100 mg PO BID [facility] Last Admin: 01/05/18 09:23 Dose: 100 mg Dextrose (Dextrose 50% Inj) 0 ml IV STAT PRN; Protocol PRN Reason: Hypoglycemia Protocol Dextrose (Glutose 15) 0 gm PO ONCE PRN; Protocol PRN Reason: Hypoglycemia Protocol Enoxaparin Sodium (Lovenox) 40 mg SC DAILY [facility]; Protocol Last Admin: 01/05/18 09:23 Dose: 40 mg Gabapentin (Neurontin) 300 mg PO HS [facility] Last Admin: 01/04/18 23:29 Dose: 300 mg Glucagon (Glucagen Diagnostic Kit) 0 mg IM STAT PRN; Protocol PRN Reason: Hypoglycemia Protocol Ibuprofen (Motrin Tab) 600 mg PO Q6 PRN PRN Reason: Pain, moderate (4-7) Last Admin: 01/05/18 03:30 Dose: 600 mg Insulin Detemir (Levemir) 20 units SC Q12 [facility] Last Admin: 01/05/18 09:22 Dose: 20 units Insulin Human Lispro (Humalog) 0 units SC [facility]; Protocol Last Admin: 01/05/18 09:22 Dose: 2 units Ketorolac Tromethamine (Toradol) 15 mg IVP Q6 PRN PRN Reason: Pain, moderate (4-7) Last Admin: 01/05/18 06:34 Dose: 15 mg Losartan Potassium (Cozaar) 50 mg PO DAILY [facility] Last Admin: 01/05/18 09:21 Dose: 50 mg - Labs Labs: 01/04/18 05:20 01/04/18 05:20 PT 12.9 Seconds (9.8-13.1) 12/28/17 16:26 INR 1.1 12/28/17 16:26 APTT 34.1 Seconds (25.6-37.1) 12/28/17 16:26 - Constitutional Appears: Well, Non-toxic, No Acute Distress - Head Exam Head Exam: ATRAUMATIC, NORMOCEPHALIC - Eye Exam Eye Exam: Normal appearance Pupil Exam: NORMAL ACCOMODATION - ENT Exam ENT Exam: Mucous Membranes Moist - Respiratory Exam Respiratory Exam: NORMAL BREATHING PATTERN - Cardiovascular Exam Cardiovascular Exam: REGULAR RHYTHM - GI/Abdominal Exam GI & Abdominal Exam: Soft, Normal Bowel Sounds - Extremities Exam Additional comments: R BKA, L foot dressing C/D/I. 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 Pham, pending vascular status possible amputation of the L hallux - L CTA; results pending - F/U Vascular surgery. Per Dr. Hightower: severe left distal sfa/pop disease. Plan for peripheral angio at [facility] to be scheduled tomorrow - CTA of left LE for Thursday01/04/2018 - C/w Plavix 75mg PO daily - C/w ASA 81 mg PO daily - C/w Pletal 100 mg BID PO daily - Pain management w/ tylenol and gabapentin 2) DMII - Uncontrolled, non-compliant with medications - Increased Levemir to 15U SC Q12h - Medium lispro/sliding scale - Hypoglycemic protocol - Accu Check [facility] - C/w Lipitor and Gabapentin 3) HTN - Chronic,stable - C/w Coreg 25 BID - Cozzar 50 daily 4) PVD - Chronic - C/w Cilostazol 5) Pancreatic/ lung mass on CT - F/U as outpatient 6) Alcohol abuse/Tobacco use - Educated patient on risks of alcohol and tobacco use 7) DVT PPX - Lovenox 40mg SC daily <Marybeth Roman - Last Filed: 01/05/18 17:21> Objective - Vital Signs/Intake and Output Vital Signs (last 24 hours): Temp Pulse Resp BP Pulse Ox 97.9 F 97 H 18 131/68 100 01/05/18 15:55 01/05/18 15:55 01/05/18 15:55 01/05/18 15:55 01/05/18 15:55 - Medications Medications: Current Medications Acetaminophen (Tylenol 325mg Tab) 650 mg PO Q6 PRN PRN Reason: Fever >100.4 F Acetaminophen (Tylenol 325mg Tab) 650 mg PO Q6 PRN PRN Reason: Pain, Mild (1-3) Last Admin: 01/03/18 23:34 Dose: 650 mg Aspirin (Aspirin Chewable) 81 mg PO DAILY [facility] Atorvastatin Calcium (Lipitor) 40 mg PO DAILY [facility] Last Admin: 01/05/18 09:23 Dose: 40 mg Carvedilol (Coreg) 25 mg PO Q12 [facility] Last Admin: 01/05/18 09:21 Dose: 25 mg Cilostazol (Pletal) 100 mg PO BID [facility] Last Admin: 01/05/18 09:23 Dose: 100 mg Clopidogrel Bisulfate (Plavix) 75 mg PO DAILY [facility] Dextrose (Dextrose 50% Inj) 0 ml IV STAT PRN; Protocol PRN Reason: Hypoglycemia Protocol Dextrose (Glutose 15) 0 gm PO ONCE PRN; Protocol PRN Reason: Hypoglycemia Protocol Enoxaparin Sodium (Lovenox) 40 mg SC DAILY [facility]; Protocol Last Admin: 01/05/18 09:23 Dose: 40 mg Gabapentin (Neurontin) 300 mg PO HS [facility] Last Admin: 01/04/18 23:29 Dose: 300 mg Glucagon (Glucagen Diagnostic Kit) 0 mg IM STAT PRN; Protocol PRN Reason: Hypoglycemia Protocol Sodium Chloride (Sodium Chloride 0.9%) 1,000 mls @ 70 mls/hr IV .[id number] [facility] Stop: 01/06/18 10:11 Last Admin: 01/05/18 15:04 Dose: 70 mls/hr Ibuprofen (Motrin Tab) 600 mg PO Q6 PRN PRN Reason: Pain, moderate (4-7) Last Admin: 01/05/18 03:30 Dose: 600 mg Insulin Detemir (Levemir) 20 units SC Q12 [facility] Last Admin: 01/05/18 09:22 Dose: 20 units Insulin Human Lispro (Humalog) 0 units SC ACHS [facility]; Protocol Last Admin: 01/05/18 13:27 Dose: 3 units Ketorolac Tromethamine (Toradol) 15 mg IVP Q6 PRN PRN Reason: Pain, moderate (4-7) Last Admin: 01/05/18 14:13 Dose: 15 mg Losartan Potassium (Cozaar) 50 mg PO DAILY [facility] Last Admin: 01/05/18 09:21 Dose: 50 mg - Labs Labs: 01/04/18 05:20 01/04/18 05:20 PT 13.1 Seconds (9.8-13.1) 01/05/18 12:39 INR 1.2 01/05/18 12:39 APTT 40.9 Seconds (25.6-37.1) H 01/05/18 12:39 Attending/Attestation - Attestation I have personally seen and examined this patient.: Yes I have fully participated in the care of the patient.: Yes I have reviewed all pertinent clinical information, including history, physical exam and plan: Yes Notes (Text): 01/05/18 17:21 Seen examined and discussed with resident. Agree with findings and plan as above.
--- NOTE | 2018-01-05 10:06 | CP.PCM.PN ---
Subjective - Date & Time of Evaluation Date of Evaluation: 01/05/18 Time of Evaluation: 10:03 - Subjective Subjective: Podiatry progress note for Dr. Pham, 62M seen and evaluated for left gangrenous changes to the hallux. Denies acute overnight events. AAOX3 and in NAD. Denies any other pedal complains. States he is in pain and motrin helps with the pain. Denies N/V/F/C/SOB/CP. Objective - Vital Signs/Intake and Output Vital Signs (last 24 hours): Temp Pulse Resp BP Pulse Ox 98.2 F 92 H 19 135/72 100 01/05/18 07:55 01/05/18 09:21 01/05/18 07:55 01/05/18 09:21 01/05/18 07:55 - Medications Medications: Current Medications Acetaminophen (Tylenol 325mg Tab) 650 mg PO Q6 PRN PRN Reason: Fever >100.4 F Acetaminophen (Tylenol 325mg Tab) 650 mg PO Q6 PRN PRN Reason: Pain, Mild (1-3) Last Admin: 01/03/18 23:34 Dose: 650 mg Atorvastatin Calcium (Lipitor) 40 mg PO DAILY [facility] Last Admin: 01/05/18 09:23 Dose: 40 mg Carvedilol (Coreg) 25 mg PO Q12 [facility] Last Admin: 01/05/18 09:21 Dose: 25 mg Cilostazol (Pletal) 100 mg PO BID [facility] Last Admin: 01/05/18 09:23 Dose: 100 mg Dextrose (Dextrose 50% Inj) 0 ml IV STAT PRN; Protocol PRN Reason: Hypoglycemia Protocol Dextrose (Glutose 15) 0 gm PO ONCE PRN; Protocol PRN Reason: Hypoglycemia Protocol Enoxaparin Sodium (Lovenox) 40 mg SC DAILY [facility]; Protocol Last Admin: 01/05/18 09:23 Dose: 40 mg Gabapentin (Neurontin) 300 mg PO HS [facility] Last Admin: 01/04/18 23:29 Dose: 300 mg Glucagon (Glucagen Diagnostic Kit) 0 mg IM STAT PRN; Protocol PRN Reason: Hypoglycemia Protocol Ibuprofen (Motrin Tab) 600 mg PO Q6 PRN PRN Reason: Pain, moderate (4-7) Last Admin: 01/05/18 03:30 Dose: 600 mg Insulin Detemir (Levemir) 20 units SC Q12 [facility] Last Admin: 01/05/18 09:22 Dose: 20 units Insulin Human Lispro (Humalog) 0 units SC ACHS [facility]; Protocol Last Admin: 01/05/18 09:22 Dose: 2 units Ketorolac Tromethamine (Toradol) 15 mg IVP Q6 PRN PRN Reason: Pain, moderate (4-7) Last Admin: 01/05/18 06:34 Dose: 15 mg Losartan Potassium (Cozaar) 50 mg PO DAILY [facility] Last Admin: 01/05/18 09:21 Dose: 50 mg - Labs Labs: 01/04/18 05:20 01/04/18 05:20 PT 12.9 Seconds (9.8-13.1) 12/28/17 16:26 INR 1.1 12/28/17 16:26 APTT 34.1 Seconds (25.6-37.1) 12/28/17 16:26 - Constitutional Appears: Well, Non-toxic, No Acute Distress - Head Exam Head Exam: ATRAUMATIC, NORMOCEPHALIC - Extremities Exam Additional comments: LLE focused exam Vascular: DP non-palpable PT nonpalpable, TG warm to cool, no evidence of edema Ortho: Right AKA, left pain to the tip of the hallux Neuro: gross sensation intact, protective sensation diminished Derm: Gangrenous changes noted to the hallux distal to the sulcus, closed fissure noted in the sulcus, minimal serous drainage noted. hyperpigmentation noted in the 2-5 toes, no open lesions, no malodor - Neurological Exam Neurological Exam: Alert, Awake, Oriented x3 - Psychiatric Exam Psychiatric exam: Normal Affect, Normal Mood Assessment and Plan - Assessment and Plan (Free Text) Assessment: 62M with gangrenous changes to the left hallux Plan: Patient seen and evaluated afebrile and absent leukocytosis X-rays ordered and reviewed; no osseous abnormality noted left foot dressed with betadine and DSD dudley/pvr - evidence of hemodynamically significant arterial insufficiency in the left lower extremity Abdominal angio - taken, read pending Vascular consult, Dr. Hightower - [facility] podiatry plan: pending vascular status amputation of the left hallux podiatry will continue to follow the patient while in house
--- NOTE | 2018-01-05 12:08 | CT ---
Date of service: 01/04/2018 PROCEDURE: CT Angiography Abdomen, Pelvis and Lower Extremity with Contrast HISTORY: left lower extremity vasculitis COMPARISON: None available. TECHNIQUE: Technique: CT angiography of the abdomen, pelvis and bilateral lower extremities performed in the arterial phase of enhancement. Coronal and sagittal reformats, and well as rotating MIP images of the vessels generated at the workstation. Intravenous contrast dose: 100 CUBIC CENTIMETERS VISIPAQUE 320 Radiation dose: Total exam DLP = 831.86 mGy-cm. This CT exam was performed using one or more of the following dose reduction techniques: Automated exposure control, adjustment of the mA and/or kV according to patient size, and/or use of iterative reconstruction technique. FINDINGS: CT ANGIOGRAPHY: ABDOMINAL AORTA:: Mild calcific plaque in the abdominal aorta without aneurysm or stenosis. MAJOR AORTIC BRANCHES: Celiac [place]: Unremarkable. Superior mesenteric artery: Unremarkable. Inferior mesenteric artery: Unremarkable. Renal arteries: Moderate plaque in the proximal segment of the left renal artery with. Unable to assess for stenosis. PELVIC ARTERIES: Right Common Iliac: Mild calcific plaque with no stenosis. Right External Iliac: Unremarkable. Right Internal Iliac: Unremarkable. Left Common Iliac: Plaque with no stenosis. Left External Iliac: Unremarkable. Left Internal Iliac: Unremarkable. RIGHT LOWER EXTREMITY ARTERIES: Right Common Femoral: Unremarkable. Right Superficial Femoral: Occlusion of the SFA. Right Profunda Femoris: Unremarkable. Above knee amputation. LEFT LOWER EXTREMITY ARTERIES: Left Common Femoral: Moderate calcific plaque in the distal common femoral artery. Left Superficial Femoral: Occlusion SFA just beyond the origin with reconstitution of the distal popliteal artery. Left Profunda Femoris: Moderate calcific plaque of the profunda femoral artery. Left Popliteal: Proximal mid popliteal artery are occluded. Reconstitution of the distal popliteal artery via collaterals. Left Anterior Tibial: Moderate calcific plaque in the proximal anterior tibial artery which is otherwise unremarkable. Left Tibioperoneal Trunk: Unremarkable. Left Posterior Tibial: Mildly calcified which limits evaluation. Believed to be patent. Left Peroneal: Lesion of the peroneal artery with distal reconstitution. Left Dorsalis pedis: Unremarkable. NON-ANGIOGRAPHIC ASPECT OF THE EXAM: LOWER THORAX: Dependent atelectatic changes. LIVER: Pneumobilia of unclear significance. GALLBLADDER AND BILE DUCTS: Cholecystectomy. Pneumobilia. PANCREAS: Severe pancreatic duct dilatation. Pancreatic lesion cannot be ruled out on this noncontrast CT scan. SPLEEN: Unremarkable. ADRENALS: Unremarkable. No mass. KIDNEYS AND URETERS: Unremarkable. No hydronephrosis. No solid mass. STOMACH AND BOWEL: Limited evaluation without PO contrast. No obstruction. APPENDIX: Not visualized. PERITONEUM: Unremarkable. No free fluid. No free air. LYMPH NODES: Unremarkable. No enlarged lymph nodes. BLADDER: Unremarkable. REPRODUCTIVE: Unremarkable. BONES: No acute fracture. OTHER FINDINGS: None. IMPRESSION: CT ANGIOGRAM ABDOMEN/PELVIS: Essentially unremarkable CT angiogram of the abdominal aorta and pelvic arteries. There is mild calcific throughout without significant stenosis. LEFT LOWER EXTREMITY CT ANGIOGRAM: 1. There is moderate calcific plaque of the distal left common femoral artery and also the profunda femoral artery. 2. There occlusion of the left SFA just beyond the origin with reconstitution of the distal popliteal artery. 3. There is occlusion of the proximal mid popliteal artery with moderate calcific plaque in this segment. 4. Runoff shows moderate calcification of proximal anterior tibial artery which is otherwise patent. The posterior tibial artery is moderately calcified which limits its evaluation, but is believed to be patent. The peroneal artery is occluded in the proximal mid segment with distal reconstitution. RIGHT LOWER EXTREMITY CT ANGIOGRAM: Right AKA Common femoral artery is unremarkable. Moderate calcification of the profunda femoral artery. NONVASCULAR FINDINGS: Severe pancreatic ductal dilatation. This is essentially unchanged from previous studies.
[2018-01-05 12:49] LABS: INR 1.2; PROTHROMBIN TIME 13.1 Seconds (9.8-13.1)
[2018-01-05 12:52] LABS: PARTIAL THROMBOPLASTIN TIME 40.9 Seconds (25.6-37.1)
[2018-01-05] MEDS: Sodium Chloride 0.9% 1,000 ML IV SCH (15:04)
[2018-01-06] MEDS: Sodium Chloride 0.9% 1,000 ML IV SCH ×2 (00:33→00:46)
[2018-01-06] MEDS: Insulin Lispro (humaLOG) 100 Units/ml Inj SC SCH ×5 (07:30→22:23)
[2018-01-06] MEDS: Insulin Detemir 100 Units/ml Inj SC SCH ×2 (09:00→22:24)
[2018-01-06] MEDS: Cilostazol 100 mg Tab UD PO SCH ×2 (09:00→18:12)
[2018-01-06 11:03] VITALS: BMI 22.1
--- NOTE | 2018-01-06 13:44 | CP.PCM.PCO ---
Physician Communication Note - Physician Communication Note Physician Communication Note: Patient went to [facility] [place] for angio today Addendum Addendum: 01/06/18 13:45 Patient went to [facility] [place] for angio today before he was able to be examined at bedside. Patient to return back to [facility] after completion of procedure. 01/06/18 13:45
--- NOTE | 2018-01-06 20:13 | CP.PCM.PCO ---
Assessment/Plan - Assessment and Plan (Free Text) Assessment: 62 male with PVS, s/p [facility] for angio. Pt is seen and examined by bedside. Doing well, tolerated the procedure well. Endorsing minimal pain in the LLE, but well controlled with pain meds. Vital signs reviewed, wnl GEN: NAD, resting comfortably H: S2S2 no additional sounds L: clear b/l Neuro: AAO x 3 Ext: LLE, feet in dressing, moving fingers, ankle and knee A/P: 62 YO Male examined post angio. Doing well. -pain management -follow up angio findings
--- NOTE | 2018-01-07 07:48 | CP.PCM.PN ---
Subjective - Date & Time of Evaluation Date of Evaluation: 01/07/18 Time of Evaluation: 11:04 - Subjective Subjective: Patient seen and examined at bedside this morning. There are no acute events overnight and is in NAD. Patient reports pain of left toe relieved w/ medication. Patient returned from [facility] last night after angiogram of the left LE. Patient denies N/V/F/SOB/CP/Chills. Objective - Vital Signs/Intake and Output Vital Signs (last 24 hours): Temp Pulse Resp BP Pulse Ox 98.3 F 101 H 18 139/77 100 01/07/18 02:39 01/07/18 02:39 01/07/18 02:39 01/07/18 02:39 01/07/18 02:39 - Medications Medications: Current Medications Acetaminophen (Tylenol 325mg Tab) 650 mg PO Q6 PRN PRN Reason: Fever >100.4 F Acetaminophen (Tylenol 325mg Tab) 650 mg PO Q6 PRN PRN Reason: Pain, Mild (1-3) Last Admin: 01/03/18 23:34 Dose: 650 mg Aspirin (Aspirin Chewable) 81 mg PO DAILY [facility] Last Admin: 01/06/18 18:07 Dose: 81 mg Atorvastatin Calcium (Lipitor) 40 mg PO DAILY [facility] Last Admin: 01/06/18 18:12 Dose: 40 mg Carvedilol (Coreg) 25 mg PO Q12 [facility] Last Admin: 01/06/18 22:10 Dose: 25 mg Cilostazol (Pletal) 100 mg PO BID [facility] Last Admin: 01/06/18 18:12 Dose: 100 mg Clopidogrel Bisulfate (Plavix) 75 mg PO DAILY [facility] Last Admin: 01/06/18 18:12 Dose: 75 mg Dextrose (Dextrose 50% Inj) 0 ml IV STAT PRN; Protocol PRN Reason: Hypoglycemia Protocol Dextrose (Glutose 15) 0 gm PO ONCE PRN; Protocol PRN Reason: Hypoglycemia Protocol Enoxaparin Sodium (Lovenox) 40 mg SC DAILY [facility]; Protocol Last Admin: 01/05/18 09:23 Dose: 40 mg Gabapentin (Neurontin) 300 mg PO HS [facility] Last Admin: 01/06/18 22:10 Dose: 300 mg Glucagon (Glucagen Diagnostic Kit) 0 mg IM STAT PRN; Protocol PRN Reason: Hypoglycemia Protocol Ibuprofen (Motrin Tab) 600 mg PO Q6 PRN PRN Reason: Pain, moderate (4-7) Last Admin: 01/05/18 03:30 Dose: 600 mg Insulin Detemir (Levemir) 20 units SC Q12 [facility] Last Admin: 01/06/18 22:24 Dose: 20 units Insulin Human Lispro (Humalog) 0 units SC ACHS [facility]; Protocol Last Admin: 01/06/18 22:23 Dose: 3 units Ketorolac Tromethamine (Toradol) 15 mg IVP Q6 PRN PRN Reason: Pain, moderate (4-7) Last Admin: 01/07/18 05:41 Dose: 15 mg Losartan Potassium (Cozaar) 50 mg PO DAILY [facility] Last Admin: 01/06/18 18:11 Dose: 50 mg - Labs Labs: 01/04/18 05:20 01/04/18 05:20 PT 13.1 Seconds (9.8-13.1) 01/05/18 12:39 INR 1.2 01/05/18 12:39 APTT 40.9 Seconds (25.6-37.1) H 01/05/18 12:39 - Constitutional Appears: Non-toxic, No Acute Distress - Head Exam Head Exam: ATRAUMATIC, NORMOCEPHALIC - Eye Exam Eye Exam: Normal appearance Pupil Exam: NORMAL ACCOMODATION - ENT Exam ENT Exam: Mucous Membranes Moist - Neck Exam Neck Exam: Full ROM. absent: Tenderness - Respiratory Exam Respiratory Exam: Clear to Ausculation Bilateral, NORMAL BREATHING PATTERN. absent: Decreased Breath Sounds, Rales, Rhonchi, Wheezes, Respiratory Distress - Cardiovascular Exam Cardiovascular Exam: REGULAR RHYTHM, RRR, +S1, +S2. absent: Tachycardia - GI/Abdominal Exam GI & Abdominal Exam: Soft, Normal Bowel Sounds - Extremities Exam Additional comments: R BKA, L foot dressing C/D/I. - Neurological Exam Neurological Exam: Alert, Awake, Oriented x3 - Psychiatric Exam Psychiatric exam: Normal Affect, Normal Mood - Skin Skin Exam: Dry, Intact, Normal Color, Warm Assessment and Plan - Assessment and Plan (Free Text) Assessment: 62 y/o man w/ pmh of PVD, HTN, DMII, gangrenous right foot s/p TMA (DOS: 08/21/17), R AKA (DOS: 10/12/17), and pancreatic/lung mass, admitted for dry gangrene to L hallux with vascular compromise Plan: 1) Left hallux dry gangrene likely secondary to PVD - L foot X-rays; no osseous abnormality noted - Podiatry consult, Dr. Pham, patient to be scheduled for left hallux amputation - L CTA; Essentially unremarkable CT angiogram of the abdominal aorta and pelvic arteries. There is mild calcific throughout without significant stenosis. - F/U Vascular surgery. Per Dr. Hightower: severe left distal sfa/pop disease. SFA to popliteal opened up, states patient will do well with hallux amputation - C/w Plavix 75mg PO daily - C/w ASA 81 mg PO daily - C/w Pletal 100 mg BID PO daily - Pain management w/ tylenol and gabapentin 2) DMII - Uncontrolled, non-compliant with medications - Increased Levemir to 25 Units SC Q12h - Medium lispro/sliding scale - Hypoglycemic protocol - Accu Check ACSH - C/w Lipitor and Gabapentin 3) HTN - Chronic,stable - C/w Coreg 25 BID - Cozzar 50 daily 4) PVD - Chronic - C/w Cilostazol 5) Pancreatic/ lung mass on CT - F/U as outpatient 6) Alcohol abuse/Tobacco use - Educated patient on risks of alcohol and tobacco use 7) DVT PPX - Lovenox 40mg SC daily
[2018-01-07] MEDS: Cilostazol 100 mg Tab UD PO SCH ×2 (09:39→17:18)
[2018-01-07] MEDS: Insulin Detemir 100 Units/ml Inj SC SCH ×2 (09:41→23:13)
[2018-01-07] MEDS: Insulin Lispro (humaLOG) 100 Units/ml Inj SC SCH ×4 (09:41→23:14)
--- NOTE | 2018-01-07 10:09 | CP.PCM.PN ---
Subjective - Date & Time of Evaluation Date of Evaluation: 01/07/18 Time of Evaluation: 10:06 - Subjective Subjective: Podiatry progress note for Dr. Pham, 62M seen and evaluated for left gangrenous changes to the hallux. Denies acute overnight events. AAOX3 and in NAD. Pain has gotten slightly better after revascularization however not fully resolved. Denies any other pedal complains. States he is in pain and motrin helps with the pain. Denies N/V/F/C/SOB/CP. Objective - Vital Signs/Intake and Output Vital Signs (last 24 hours): Temp Pulse Resp BP Pulse Ox 98.3 F 91 H 20 129/68 100 01/07/18 08:01 01/07/18 09:40 01/07/18 08:01 01/07/18 09:40 01/07/18 08:01 - Medications Medications: Current Medications Acetaminophen (Tylenol 325mg Tab) 650 mg PO Q6 PRN PRN Reason: Fever >100.4 F Acetaminophen (Tylenol 325mg Tab) 650 mg PO Q6 PRN PRN Reason: Pain, Mild (1-3) Last Admin: 01/03/18 23:34 Dose: 650 mg Aspirin (Aspirin Chewable) 81 mg PO DAILY [facility] Last Admin: 01/07/18 09:39 Dose: 81 mg Atorvastatin Calcium (Lipitor) 40 mg PO DAILY [facility] Last Admin: 01/07/18 09:39 Dose: 40 mg Carvedilol (Coreg) 25 mg PO Q12 [facility] Last Admin: 01/07/18 09:40 Dose: 25 mg Cilostazol (Pletal) 100 mg PO BID [facility] Last Admin: 01/07/18 09:39 Dose: 100 mg Clopidogrel Bisulfate (Plavix) 75 mg PO DAILY [facility] Last Admin: 01/07/18 09:39 Dose: 75 mg Dextrose (Dextrose 50% Inj) 0 ml IV STAT PRN; Protocol PRN Reason: Hypoglycemia Protocol Dextrose (Glutose 15) 0 gm PO ONCE PRN; Protocol PRN Reason: Hypoglycemia Protocol Enoxaparin Sodium (Lovenox) 40 mg SC DAILY [facility]; Protocol Last Admin: 01/05/18 09:23 Dose: 40 mg Gabapentin (Neurontin) 300 mg PO HS [facility] Last Admin: 01/06/18 22:10 Dose: 300 mg Glucagon (Glucagen Diagnostic Kit) 0 mg IM STAT PRN; Protocol PRN Reason: Hypoglycemia Protocol Ibuprofen (Motrin Tab) 600 mg PO Q6 PRN PRN Reason: Pain, moderate (4-7) Last Admin: 01/05/18 03:30 Dose: 600 mg Insulin Detemir (Levemir) 20 units SC Q12 [facility] Last Admin: 01/07/18 09:41 Dose: 20 units Insulin Human Lispro (Humalog) 0 units SC ACHS [facility]; Protocol Last Admin: 01/07/18 09:41 Dose: 3 units Ketorolac Tromethamine (Toradol) 15 mg IVP Q6 PRN PRN Reason: Pain, moderate (4-7) Last Admin: 01/07/18 05:41 Dose: 15 mg Losartan Potassium (Cozaar) 50 mg PO DAILY [facility] Last Admin: 01/07/18 09:39 Dose: 50 mg - Labs Labs: 01/04/18 05:20 01/04/18 05:20 PT 13.1 Seconds (9.8-13.1) 01/05/18 12:39 INR 1.2 01/05/18 12:39 APTT 40.9 Seconds (25.6-37.1) H 01/05/18 12:39 - Constitutional Appears: Well, Non-toxic - Head Exam Head Exam: ATRAUMATIC - Extremities Exam Additional comments: LLE focused exam Vascular: DP non-palpable PT nonpalpable, TG warm to cool, no evidence of edema Ortho: Right AKA, left pain to the tip of the hallux Neuro: gross sensation intact, protective sensation diminished Derm: Gangrenous changes noted to the hallux distal to the sulcus, closed fissure noted in the sulcus, minimal serous drainage noted. hyperpigmentation noted in the 2-5 toes, no open lesions, no malodor Assessment and Plan - Assessment and Plan (Free Text) Assessment: 62M with gangrenous changes to the left hallux Plan: Patient seen and evaluated afebrile and absent leukocytosis X-rays ordered and reviewed; no osseous abnormality noted left foot dressed with betadine and DSD dudley/pvr - evidence of hemodynamically significant arterial insufficiency in the left lower extremity Abdominal angio - occlusion of SFA, plaque in femoral and prof fem, peroneal artery occlusion Vascular consult, Dr. Hightower - SFA to popliteal opened up, states patient will do well with hallux amputation podiatry plan: patient scheduled for left hallux amputation on Thursday at 9;30 am, please provide medical clearance podiatry will continue to follow the patient while in house
[2018-01-07] MEDS: Enoxaparin 40 mg Syringe SC SCH (17:47)
[2018-01-08] MEDS: Insulin Lispro (humaLOG) 100 Units/ml Inj SC SCH ×4 (06:42→21:22)
--- NOTE | 2018-01-08 06:46 | CP.PCM.PN ---
Subjective - Date & Time of Evaluation Date of Evaluation: 01/08/18 Time of Evaluation: 12:15 - Subjective Subjective: Patient seen and examined at bedside this morning. There are no acute events overnight and is in NAD. Patient reports pain of left toe relieved w/ medication. Patient returned from [facility] last night after angiogram of the left LE. Patient denies N/V/F/SOB/CP/Chills. Objective - Vital Signs/Intake and Output Vital Signs (last 24 hours): Temp Pulse Resp BP Pulse Ox 98.6 F 88 19 143/70 100 01/08/18 00:08 01/08/18 00:08 01/08/18 00:08 01/08/18 00:08 01/08/18 00:08 - Medications Medications: Current Medications Acetaminophen (Tylenol 325mg Tab) 650 mg PO Q6 PRN PRN Reason: Fever >100.4 F Acetaminophen (Tylenol 325mg Tab) 650 mg PO Q6 PRN PRN Reason: Pain, Mild (1-3) Last Admin: 01/03/18 23:34 Dose: 650 mg Aspirin (Aspirin Chewable) 81 mg PO DAILY [facility] Last Admin: 01/07/18 09:39 Dose: 81 mg Atorvastatin Calcium (Lipitor) 40 mg PO DAILY [facility] Last Admin: 01/07/18 09:39 Dose: 40 mg Carvedilol (Coreg) 25 mg PO Q12 [facility] Last Admin: 01/07/18 21:13 Dose: 25 mg Cilostazol (Pletal) 100 mg PO BID [facility] Last Admin: 01/07/18 17:18 Dose: 100 mg Clopidogrel Bisulfate (Plavix) 75 mg PO DAILY [facility] Last Admin: 01/07/18 09:39 Dose: 75 mg Dextrose (Dextrose 50% Inj) 0 ml IV STAT PRN; Protocol PRN Reason: Hypoglycemia Protocol Dextrose (Glutose 15) 0 gm PO ONCE PRN; Protocol PRN Reason: Hypoglycemia Protocol Enoxaparin Sodium (Lovenox) 40 mg SC DAILY [facility]; Protocol Last Admin: 01/07/18 17:47 Dose: 40 mg Gabapentin (Neurontin) 300 mg PO HS [facility] Last Admin: 01/07/18 21:13 Dose: 300 mg Glucagon (Glucagen Diagnostic Kit) 0 mg IM STAT PRN; Protocol PRN Reason: Hypoglycemia Protocol Ibuprofen (Motrin Tab) 600 mg PO Q6 PRN PRN Reason: Pain, moderate (4-7) Last Admin: 01/05/18 03:30 Dose: 600 mg Insulin Detemir (Levemir) 25 units SC Q12 [facility] Last Admin: 01/07/18 23:13 Dose: 25 units Insulin Human Lispro (Humalog) 0 units SC ACHS [facility]; Protocol Last Admin: 01/08/18 06:42 Dose: Not Given Ketorolac Tromethamine (Toradol) 15 mg IVP Q6 PRN PRN Reason: Pain, moderate (4-7) Last Admin: 01/08/18 06:31 Dose: 15 mg Losartan Potassium (Cozaar) 50 mg PO DAILY [facility] Last Admin: 01/07/18 09:39 Dose: 50 mg - Labs Labs: 01/04/18 05:20 01/04/18 05:20 PT 13.1 Seconds (9.8-13.1) 01/05/18 12:39 INR 1.2 01/05/18 12:39 APTT 40.9 Seconds (25.6-37.1) H 01/05/18 12:39 - Constitutional Appears: Non-toxic, No Acute Distress - Head Exam Head Exam: ATRAUMATIC, NORMAL INSPECTION, NORMOCEPHALIC - Eye Exam Eye Exam: Normal appearance - ENT Exam ENT Exam: Mucous Membranes Moist - Neck Exam Neck Exam: Full ROM. absent: Tenderness - Respiratory Exam Respiratory Exam: Clear to Ausculation Bilateral, NORMAL BREATHING PATTERN. absent: Decreased Breath Sounds, Rales, Rhonchi, Wheezes, Respiratory Distress - Cardiovascular Exam Cardiovascular Exam: REGULAR RHYTHM, RRR. absent: Tachycardia - GI/Abdominal Exam GI & Abdominal Exam: Soft, Normal Bowel Sounds. absent: Distended, Tenderness - Extremities Exam Additional comments: R BKA, L foot dressing C/D/I. - Neurological Exam Neurological Exam: Alert, Awake, Oriented x3 - Psychiatric Exam Psychiatric exam: Normal Affect, Normal Mood - Skin Skin Exam: Dry, Intact, Normal Color, Warm Assessment and Plan - Assessment and Plan (Free Text) Assessment: 62 y/o man w/ pmh of PVD, HTN, DMII, gangrenous right foot s/p TMA (DOS: 08/21/17), R AKA (DOS: 10/12/17), and pancreatic/lung mass, admitted for dry gangrene to L hallux with vascular compromise Plan: 1) Left hallux dry gangrene likely secondary to PVD - L foot X-rays; no osseous abnormality noted - Podiatry consult, Dr. Pham, patient to be scheduled for left hallux amputation - L CTA; Essentially unremarkable CT angiogram of the abdominal aorta and pelvic arteries. There is mild calcific throughout without significant stenosis. - F/U Vascular surgery. Per Dr. Hightower: severe left distal sfa/pop disease. SFA to popliteal opened up, states patient will do well with hallux amputation - C/w Plavix 75mg PO daily - C/w ASA 81 mg PO daily - C/w Pletal 100 mg BID PO daily - Pain management w/ tylenol and gabapentin 2) DMII - Uncontrolled, non-compliant with medications - Increased Levemir to 25 Units SC Q12h - Medium lispro/sliding scale - Hypoglycemic protocol - Accu Check ACSH - C/w Lipitor and Gabapentin 3) HTN - Chronic,stable - C/w Coreg 25 BID - Cozzar 50 daily 4) PVD - Chronic - C/w Cilostazol 5) Pancreatic/ lung mass on CT - F/U as outpatient 6) Alcohol abuse/Tobacco use - Educated patient on risks of alcohol and tobacco use 7) DVT PPX - Lovenox 40mg SC daily
[2018-01-08] MEDS: Enoxaparin 40 mg Syringe SC SCH (08:29)
[2018-01-08] MEDS: Insulin Detemir 100 Units/ml Inj SC SCH ×2 (08:31→21:16)
[2018-01-08] MEDS: Cilostazol 100 mg Tab UD PO SCH ×2 (08:32→16:45)
[2018-01-09] MEDS: Insulin Lispro (humaLOG) 100 Units/ml Inj SC SCH ×4 (06:57→22:46)
[2018-01-09 07:07] LABS: HEMOGLOBIN 8.3 g/dL (12.0-18.0); MEAN CELL VOLUME 91.4 fl (80.0-94.0); MEAN CORPUSCULAR HEMOGLOBIN 29.6 pg (27.0-31.0); MEAN CORPUSCULAR HGB CONC 32.3 g/dL (33.0-37.0); RBC 2.82 Mil/uL (4.40-5.90); RED CELL DISTRIBUTION WIDTH 14.2 % (11.5-14.5); WHITE BLOOD COUNT 9.6 K/uL (4.8-10.8)
[2018-01-09 07:56] LABS: BLOOD UREA NITROGEN 14 mg/dl (9-20); GFR NON-AFRICAN AMERICAN > 60
--- NOTE | 2018-01-09 08:19 | CP.PCM.PN ---
Objective - Vital Signs/Intake and Output Vital Signs (last 24 hours): Temp Pulse Resp BP Pulse Ox 98.2 F 85 20 143/74 100 01/09/18 08:07 01/09/18 08:07 01/09/18 08:07 01/09/18 08:07 01/09/18 08:07 - Medications Medications: Current Medications Acetaminophen (Tylenol 325mg Tab) 650 mg PO Q6 PRN PRN Reason: Fever >100.4 F Acetaminophen (Tylenol 325mg Tab) 650 mg PO Q6 PRN PRN Reason: Pain, Mild (1-3) Last Admin: 01/03/18 23:34 Dose: 650 mg Aspirin (Aspirin Chewable) 81 mg PO DAILY [facility] Last Admin: 01/08/18 08:30 Dose: 81 mg Atorvastatin Calcium (Lipitor) 40 mg PO DAILY [facility] Last Admin: 01/08/18 08:31 Dose: 40 mg Carvedilol (Coreg) 25 mg PO Q12 [facility] Last Admin: 01/08/18 21:16 Dose: 25 mg Cilostazol (Pletal) 100 mg PO BID [facility] Last Admin: 01/08/18 16:45 Dose: 100 mg Clopidogrel Bisulfate (Plavix) 75 mg PO DAILY [facility] Last Admin: 01/08/18 08:30 Dose: 75 mg Dextrose (Dextrose 50% Inj) 0 ml IV STAT PRN; Protocol PRN Reason: Hypoglycemia Protocol Dextrose (Glutose 15) 0 gm PO ONCE PRN; Protocol PRN Reason: Hypoglycemia Protocol Enoxaparin Sodium (Lovenox) 40 mg SC DAILY [facility]; Protocol Last Admin: 01/08/18 08:29 Dose: 40 mg Gabapentin (Neurontin) 300 mg PO HS [facility] Last Admin: 01/08/18 21:16 Dose: 300 mg Glucagon (Glucagen Diagnostic Kit) 0 mg IM STAT PRN; Protocol PRN Reason: Hypoglycemia Protocol Ibuprofen (Motrin Tab) 600 mg PO Q6 PRN PRN Reason: Pain, moderate (4-7) Last Admin: 01/08/18 16:48 Dose: 600 mg Insulin Detemir (Levemir) 25 units SC Q12 [facility] Last Admin: 01/08/18 21:16 Dose: 25 units Insulin Human Lispro (Humalog) 0 units SC ACHS [facility]; Protocol Last Admin: 01/09/18 06:57 Dose: Not Given Ketorolac Tromethamine (Toradol) 15 mg IVP Q6 PRN PRN Reason: Pain, moderate (4-7) Last Admin: 01/09/18 06:31 Dose: 15 mg Losartan Potassium (Cozaar) 50 mg PO DAILY [facility] Last Admin: 01/08/18 08:31 Dose: 50 mg - Labs Labs: 01/09/18 05:30 01/09/18 05:30 PT 13.1 Seconds (9.8-13.1) 01/05/18 12:39 INR 1.2 01/05/18 12:39 APTT 40.9 Seconds (25.6-37.1) H 01/05/18 12:39
[2018-01-09] MEDS: Enoxaparin 40 mg Syringe SC SCH (09:14)
[2018-01-09] MEDS: Insulin Detemir 100 Units/ml Inj SC SCH ×2 (09:14→22:48)
--- NOTE | 2018-01-09 17:30 | CP.PCM.PN ---
Subjective - Date & Time of Evaluation Date of Evaluation: 01/09/18 Time of Evaluation: 11:00 - Subjective Subjective: Patient seen and examined bedside . Feeling well. Pain is controlled. No acute issues overnight Plan for OR on Thursday for Toe amputation. Objective - Vital Signs/Intake and Output Vital Signs (last 24 hours): Temp Pulse Resp BP Pulse Ox 98.6 F 95 H 18 149/77 99 01/09/18 16:20 01/09/18 16:20 01/09/18 16:20 01/09/18 16:20 01/09/18 16:20 - Medications Medications: Current Medications Acetaminophen (Tylenol 325mg Tab) 650 mg PO Q6 PRN PRN Reason: Fever >100.4 F Acetaminophen (Tylenol 325mg Tab) 650 mg PO Q6 PRN PRN Reason: Pain, Mild (1-3) Last Admin: 01/03/18 23:34 Dose: 650 mg Aspirin (Aspirin Chewable) 81 mg PO DAILY [facility] Last Admin: 01/09/18 09:13 Dose: 81 mg Atorvastatin Calcium (Lipitor) 40 mg PO DAILY [facility] Last Admin: 01/09/18 09:14 Dose: 40 mg Carvedilol (Coreg) 25 mg PO Q12 [facility] Last Admin: 01/09/18 09:13 Dose: 25 mg Cilostazol (Pletal) 100 mg PO BID [facility] Last Admin: 01/08/18 16:45 Dose: 100 mg Clopidogrel Bisulfate (Plavix) 75 mg PO DAILY [facility] Last Admin: 01/08/18 08:30 Dose: 75 mg Dextrose (Dextrose 50% Inj) 0 ml IV STAT PRN; Protocol PRN Reason: Hypoglycemia Protocol Dextrose (Glutose 15) 0 gm PO ONCE PRN; Protocol PRN Reason: Hypoglycemia Protocol Enoxaparin Sodium (Lovenox) 40 mg SC DAILY [facility]; Protocol Last Admin: 01/09/18 09:14 Dose: 40 mg Gabapentin (Neurontin) 300 mg PO HS [facility] Last Admin: 01/08/18 21:16 Dose: 300 mg Glucagon (Glucagen Diagnostic Kit) 0 mg IM STAT PRN; Protocol PRN Reason: Hypoglycemia Protocol Ibuprofen (Motrin Tab) 600 mg PO Q6 PRN PRN Reason: Pain, moderate (4-7) Last Admin: 01/08/18 16:48 Dose: 600 mg Insulin Detemir (Levemir) 25 units SC Q12 [facility] Last Admin: 01/09/18 09:14 Dose: 25 units Insulin Human Lispro (Humalog) 0 units SC ACHS [facility]; Protocol Last Admin: 01/09/18 16:08 Dose: Not Given Ketorolac Tromethamine (Toradol) 15 mg IVP Q6 PRN PRN Reason: Pain, moderate (4-7) Last Admin: 01/09/18 06:31 Dose: 15 mg Losartan Potassium (Cozaar) 50 mg PO DAILY [facility] Last Admin: 01/09/18 09:14 Dose: 50 mg - Labs Labs: 01/09/18 05:30 01/09/18 05:30 PT 13.1 Seconds (9.8-13.1) 01/05/18 12:39 INR 1.2 01/05/18 12:39 APTT 40.9 Seconds (25.6-37.1) H 01/05/18 12:39 - Constitutional Appears: Non-toxic, No Acute Distress - Head Exam Head Exam: ATRAUMATIC, NORMOCEPHALIC - Eye Exam Eye Exam: EOMI, Normal appearance, PERRL Pupil Exam: NORMAL ACCOMODATION - ENT Exam ENT Exam: Mucous Membranes Moist, Normal Exam - Neck Exam Neck Exam: Normal Inspection - Respiratory Exam Respiratory Exam: Clear to Ausculation Bilateral, NORMAL BREATHING PATTERN. absent: Rales, Rhonchi, Wheezes - Cardiovascular Exam Cardiovascular Exam: REGULAR RHYTHM, RRR, +S1, +S2. absent: JVD - GI/Abdominal Exam GI & Abdominal Exam: Soft, Normal Bowel Sounds. absent: Distended, Guarding, Tenderness, Rebound - Rectal Exam Rectal Exam: Deferred - Back Exam Back Exam: NORMAL INSPECTION - Neurological Exam Neurological Exam: Alert, Awake, CN II-XII Intact, Oriented x3 - Psychiatric Exam Psychiatric exam: Normal Affect, Normal Mood - Skin Skin Exam: Dry, Normal Color, Warm Assessment and Plan - Assessment and Plan (Free Text) Assessment: 61 y/o male with PMH of PVD, gangrenous right foot s/p TMA 08/21/17, S/P Right leg AKA done on 10/12/17, IIDDM, pancreatic/ lung mass on CT and HTN, not compliant with medications, admitted for evaluation and treatment of worsening Left great toe pain for 1 month . On Physical exam noticed to have gangrenous changes to left great Toe. s/p angio of LLE with opening of Left SFA to popliteal artery Plan for OR with amputation of left great Toe Continue pain management 1.Left Great Toe gangrene s/p LLE angio with opening left SFA to popliteal artery plan for OR on Thursday patient is medically stable for OR Discontinued Pletal , Plavix Keep NPO past midnight. Hold Lovenox in AM 2.Uncontrolled IDDM With episode of hypoglycemia early this AM continue levemir 25 unit SQ AM . Decrease PM dose to 20 unit SQ Diabetic diet , accuchecks, insulin coverage 3.PVD s/p angio of LLE with improved circulation to LLE on Statin, Plavix , ASA,pletal 4.Chronic anemia Hgb trending down slowly from 11 -8.3 Order Type and cross match for OR Send anemia work up start Ferrous sulfate 5.HTN controlled Continue current medications 6. DVT prophylaxis On Lovenox 7.
[2018-01-09 19:21] LABS: IRON 39 ug/dL (49-181)
[2018-01-09 19:34] LABS: % IRON SATURATION 16 % (20-55); TOTAL IRON BINDING CAPACITY 241 ug/dL (250-450)
[2018-01-09] MEDS ORDERED: Insulin Detemir 100 Units/ml Inj SC SCH (22:00)
[2018-01-10] MEDS: Insulin Detemir 100 Units/ml Inj SC SCH ×2 (08:42→23:01)
[2018-01-10] MEDS: Insulin Lispro (humaLOG) 100 Units/ml Inj SC SCH ×4 (08:44→22:54)
--- NOTE | 2018-01-10 09:47 | CP.PCM.PN ---
Subjective - Date & Time of Evaluation Date of Evaluation: 01/10/18 Time of Evaluation: 10:42 - Subjective Subjective: Patient seen and examined at bedside this morning. There are no acute events overnight and is in NAD. Patient reports pain of left toe relieved w/ medication. Patient denies N/V/F/SOB/CP/Chills. Patient scheduled for left hallux amputation on 01/11/2018 Objective - Vital Signs/Intake and Output Vital Signs (last 24 hours): Temp Pulse Resp BP Pulse Ox 98.3 F 83 20 149/76 97 01/10/18 08:59 01/10/18 08:59 01/10/18 08:59 01/10/18 08:59 01/10/18 08:59 - Medications Medications: Current Medications Acetaminophen (Tylenol 325mg Tab) 650 mg PO Q6 PRN PRN Reason: Fever >100.4 F Acetaminophen (Tylenol 325mg Tab) 650 mg PO Q6 PRN PRN Reason: Pain, Mild (1-3) Last Admin: 01/03/18 23:34 Dose: 650 mg Aspirin (Aspirin Chewable) 81 mg PO DAILY [facility] Last Admin: 01/10/18 08:42 Dose: 81 mg Atorvastatin Calcium (Lipitor) 40 mg PO DAILY [facility] Last Admin: 01/10/18 08:41 Dose: 40 mg Carvedilol (Coreg) 25 mg PO Q12 [facility] Last Admin: 01/10/18 08:40 Dose: 25 mg Cilostazol (Pletal) 100 mg PO BID [facility] Last Admin: 01/08/18 16:45 Dose: 100 mg Clopidogrel Bisulfate (Plavix) 75 mg PO DAILY [facility] Last Admin: 01/08/18 08:30 Dose: 75 mg Dextrose (Dextrose 50% Inj) 0 ml IV STAT PRN; Protocol PRN Reason: Hypoglycemia Protocol Dextrose (Glutose 15) 0 gm PO ONCE PRN; Protocol PRN Reason: Hypoglycemia Protocol Enoxaparin Sodium (Lovenox) 40 mg SC DAILY [facility]; Protocol Last Admin: 01/09/18 09:14 Dose: 40 mg Ferrous Sulfate (Feosol) 325 mg PO BID [facility] Last Admin: 01/10/18 08:41 Dose: 325 mg Gabapentin (Neurontin) 300 mg PO HS [facility] Last Admin: 01/09/18 21:55 Dose: 300 mg Glucagon (Glucagen Diagnostic Kit) 0 mg IM STAT PRN; Protocol PRN Reason: Hypoglycemia Protocol Ibuprofen (Motrin Tab) 600 mg PO Q6 PRN PRN Reason: Pain, moderate (4-7) Last Admin: 01/10/18 05:48 Dose: 600 mg Insulin Detemir (Levemir) 20 units SC [facility] Last Admin: 01/10/18 08:42 Dose: 20 u Insulin Human Lispro (Humalog) 0 units SC [facility]; Protocol Last Admin: 01/10/18 08:44 Dose: 3 units Ketorolac Tromethamine (Toradol) 15 mg IVP Q6 PRN PRN Reason: Pain, moderate (4-7) Last Admin: 01/10/18 08:28 Dose: 15 mg Losartan Potassium (Cozaar) 50 mg PO DAILY [facility] Last Admin: 01/10/18 08:41 Dose: 50 mg - Labs Labs: 01/09/18 05:30 01/09/18 05:30 PT 13.1 Seconds (9.8-13.1) 01/05/18 12:39 INR 1.2 01/05/18 12:39 APTT 40.9 Seconds (25.6-37.1) H 01/05/18 12:39 - Constitutional Appears: Non-toxic, No Acute Distress - Head Exam Head Exam: ATRAUMATIC, NORMAL INSPECTION, NORMOCEPHALIC - Eye Exam Eye Exam: Normal appearance - ENT Exam ENT Exam: Mucous Membranes Moist - Neck Exam Neck Exam: Full ROM. absent: Tenderness - Respiratory Exam Respiratory Exam: Clear to Ausculation Bilateral, NORMAL BREATHING PATTERN. absent: Decreased Breath Sounds, Rales, Rhonchi, Wheezes, Respiratory Distress - Cardiovascular Exam Cardiovascular Exam: REGULAR RHYTHM, RRR, +S1, +S2. absent: JVD, Murmur - GI/Abdominal Exam GI & Abdominal Exam: Soft, Normal Bowel Sounds. absent: Distended, Tenderness - Neurological Exam Neurological Exam: Alert, Awake, Oriented x3 - Psychiatric Exam Psychiatric exam: Normal Affect, Normal Mood - Skin Skin Exam: Dry, Normal Color, Warm Assessment and Plan - Assessment and Plan (Free Text) Assessment: 62 y/o man w/ pmh of PVD, HTN, DMII, gangrenous right foot s/p TMA (DOS: 08/21/17), R AKA (DOS: 10/12/17), and pancreatic/lung mass, admitted for dry gangrene to L hallux with vascular compromise Plan: 1) Left hallux dry gangrene likely secondary to PVD - L foot X-rays; no osseous abnormality noted - Podiatry consult, Dr. Pham, patient to be scheduled for left hallux amputation - L CTA; Essentially unremarkable CT angiogram of the abdominal aorta and pelvic arteries. There is mild calcific throughout without significant stenosis. - F/U Vascular surgery. Per Dr. Hightower: severe left distal sfa/pop disease. SFA to popliteal opened up, states patient will do well with hallux amputation - C/w Plavix 75mg PO daily - C/w ASA 81 mg PO daily - C/w Pletal 100 mg BID PO daily - Pain management w/ tylenol and gabapentin - Scheduled for left hallux amputation in OR tomorrow, NPO except meds after midnight, lovenox/pletal/plavix held 2) DMII - Uncontrolled, non-compliant with medications - Levemir to 20 Units SC Q12h - Medium lispro/sliding scale - Hypoglycemic protocol - Accu Check ACSH - C/w Lipitor and Gabapentin 3) HTN - Chronic,stable - C/w Coreg 25 BID - Cozzar 50 daily 4) PVD - Chronic - C/w Cilostazol 5) Pancreatic/ lung mass on CT - F/U as outpatient 6) Alcohol abuse/Tobacco use - Educated patient on risks of alcohol and tobacco use 7) DVT PPX - Lovenox 40mg SC daily
--- NOTE | 2018-01-10 10:12 | CP.PCM.PN ---
Subjective - Date & Time of Evaluation Date of Evaluation: 01/10/18 Time of Evaluation: 10:10 - Subjective Subjective: Podiatry progress note for Dr. Pham, 62M seen and evaluated for left gangrenous changes to the hallux. Denies acute overnight events. AAOX3 and in NAD. States he is aware oft he surgery tomorrow. Denies any other pedal complains. States he is in pain and motrin helps with the pain. Denies N/V/F/C/SOB/CP. Objective - Vital Signs/Intake and Output Vital Signs (last 24 hours): Temp Pulse Resp BP Pulse Ox 98.3 F 83 20 149/76 97 01/10/18 08:59 01/10/18 08:59 01/10/18 08:59 01/10/18 08:59 01/10/18 08:59 - Medications Medications: Current Medications Acetaminophen (Tylenol 325mg Tab) 650 mg PO Q6 PRN PRN Reason: Fever >100.4 F Acetaminophen (Tylenol 325mg Tab) 650 mg PO Q6 PRN PRN Reason: Pain, Mild (1-3) Last Admin: 01/03/18 23:34 Dose: 650 mg Aspirin (Aspirin Chewable) 81 mg PO DAILY [facility] Last Admin: 01/10/18 08:42 Dose: 81 mg Atorvastatin Calcium (Lipitor) 40 mg PO DAILY [facility] Last Admin: 01/10/18 08:41 Dose: 40 mg Carvedilol (Coreg) 25 mg PO Q12 [facility] Last Admin: 01/10/18 08:40 Dose: 25 mg Cilostazol (Pletal) 100 mg PO BID [facility] Last Admin: 01/08/18 16:45 Dose: 100 mg Clopidogrel Bisulfate (Plavix) 75 mg PO DAILY [facility] Last Admin: 01/08/18 08:30 Dose: 75 mg Dextrose (Dextrose 50% Inj) 0 ml IV STAT PRN; Protocol PRN Reason: Hypoglycemia Protocol Dextrose (Glutose 15) 0 gm PO ONCE PRN; Protocol PRN Reason: Hypoglycemia Protocol Enoxaparin Sodium (Lovenox) 40 mg SC DAILY [facility]; Protocol Last Admin: 01/09/18 09:14 Dose: 40 mg Ferrous Sulfate (Feosol) 325 mg PO BID [facility] Last Admin: 01/10/18 08:41 Dose: 325 mg Gabapentin (Neurontin) 300 mg PO HS [facility] Last Admin: 01/09/18 21:55 Dose: 300 mg Glucagon (Glucagen Diagnostic Kit) 0 mg IM STAT PRN; Protocol PRN Reason: Hypoglycemia Protocol Ibuprofen (Motrin Tab) 600 mg PO Q6 PRN PRN Reason: Pain, moderate (4-7) Last Admin: 01/10/18 05:48 Dose: 600 mg Insulin Detemir (Levemir) 20 units SC [facility] Last Admin: 01/10/18 08:42 Dose: 20 u Insulin Human Lispro (Humalog) 0 units SC [facility]; Protocol Last Admin: 01/10/18 08:44 Dose: 3 units Ketorolac Tromethamine (Toradol) 15 mg IVP Q6 PRN PRN Reason: Pain, moderate (4-7) Last Admin: 01/10/18 08:28 Dose: 15 mg Losartan Potassium (Cozaar) 50 mg PO DAILY [facility] Last Admin: 01/10/18 08:41 Dose: 50 mg - Labs Labs: 01/09/18 05:30 01/09/18 05:30 PT 13.1 Seconds (9.8-13.1) 01/05/18 12:39 INR 1.2 01/05/18 12:39 APTT 40.9 Seconds (25.6-37.1) H 01/05/18 12:39 - Constitutional Appears: Well, Non-toxic - Head Exam Head Exam: ATRAUMATIC - Extremities Exam Additional comments: LLE focused exam Vascular: DP non-palpable PT nonpalpable, TG warm to cool, no evidence of edema Ortho: Right AKA, left pain to the tip of the hallux Neuro: gross sensation intact, protective sensation diminished Derm: Gangrenous changes noted to the hallux distal to the sulcus, closed fissure noted in the sulcus, minimal serous drainage noted. hyperpigmentation noted in the 2-5 toes, no open lesions, no malodor - Neurological Exam Neurological Exam: Alert, Awake - Psychiatric Exam Psychiatric exam: Normal Affect Assessment and Plan - Assessment and Plan (Free Text) Assessment: 62M with gangrenous changes to the left hallux Plan: Patient seen and evaluated afebrile and absent leukocytosis X-rays ordered and reviewed; no osseous abnormality noted left foot dressed with betadine and DSD dudley/pvr - evidence of hemodynamically significant arterial insufficiency in the left lower extremity Abdominal angio - occlusion of SFA, plaque in femoral and prof fem, peroneal artery occlusion Vascular consult, Dr. Hightower - SFA to popliteal opened up, states patient should do well with hallux amputation podiatry plan: patient scheduled for left hallux amputation on Thursday at 9;30 am, Medical clearance on file Lovenox on hold NPO order placed podiatry will continue to follow the patient while in house
[2018-01-10] MEDS: Enoxaparin 40 mg Syringe SC SCH (11:15)
[2018-01-11 06:17] LABS: HEMOGLOBIN 8.2 g/dL (12.0-18.0); MEAN CELL VOLUME 88.6 fl (80.0-94.0); MEAN CORPUSCULAR HEMOGLOBIN 29.2 pg (27.0-31.0); MEAN CORPUSCULAR HGB CONC 32.9 g/dL (33.0-37.0); RBC 2.8 Mil/uL (4.40-5.90); WHITE BLOOD COUNT 8.9 K/uL (4.8-10.8)
[2018-01-11 06:27] LABS: INR 1.1
[2018-01-11 06:30] LABS: BLOOD UREA NITROGEN 16 mg/dl (9-20); CALCIUM 9.1 mg/dL (8.4-10.2); GFR NON-AFRICAN AMERICAN > 60
--- NOTE | 2018-01-11 08:15 | CP.PCM.PN ---
Subjective - Date & Time of Evaluation Date of Evaluation: 01/11/18 Time of Evaluation: 08:12 - Subjective Subjective: Podiatry progress note for Dr. Pham 62M seen and evaluated at bedside preoperatively for left hallux amputation. Resting comfortably. States he is in pain today but it has been consistent all weekend. Denies N/V/F/C/SOB/CP today and has no other pedal complaints. States he has not eaten or had anything to drink since last night. Objective - Vital Signs/Intake and Output Vital Signs (last 24 hours): Temp Pulse Resp BP Pulse Ox 98.2 F 86 20 141/77 100 01/11/18 08:05 01/11/18 08:05 01/11/18 08:05 01/11/18 08:05 01/11/18 08:05 - Medications Medications: Current Medications Acetaminophen (Tylenol 325mg Tab) 650 mg PO Q6 PRN PRN Reason: Fever >100.4 F Acetaminophen (Tylenol 325mg Tab) 650 mg PO Q6 PRN PRN Reason: Pain, Mild (1-3) Last Admin: 01/03/18 23:34 Dose: 650 mg Aspirin (Aspirin Chewable) 81 mg PO DAILY [facility] Last Admin: 01/10/18 08:42 Dose: 81 mg Atorvastatin Calcium (Lipitor) 40 mg PO DAILY [facility] Last Admin: 01/10/18 08:41 Dose: 40 mg Carvedilol (Coreg) 25 mg PO Q12 [facility] Last Admin: 01/10/18 21:05 Dose: 25 mg Cilostazol (Pletal) 100 mg PO BID [facility] Last Admin: 01/08/18 16:45 Dose: 100 mg Clopidogrel Bisulfate (Plavix) 75 mg PO DAILY [facility] Last Admin: 01/08/18 08:30 Dose: 75 mg Dextrose (Dextrose 50% Inj) 0 ml IV STAT PRN; Protocol PRN Reason: Hypoglycemia Protocol Dextrose (Glutose 15) 0 gm PO ONCE PRN; Protocol PRN Reason: Hypoglycemia Protocol Enoxaparin Sodium (Lovenox) 40 mg SC DAILY [facility]; Protocol Last Admin: 01/10/18 11:15 Dose: Not Given Ferrous Sulfate (Feosol) 325 mg PO BID [facility] Last Admin: 01/10/18 16:57 Dose: 325 mg Gabapentin (Neurontin) 300 mg PO HS [facility] Last Admin: 01/10/18 21:06 Dose: 300 mg Glucagon (Glucagen Diagnostic Kit) 0 mg IM STAT PRN; Protocol PRN Reason: Hypoglycemia Protocol Ibuprofen (Motrin Tab) 600 mg PO Q6 PRN PRN Reason: Pain, moderate (4-7) Last Admin: 01/11/18 00:33 Dose: 600 mg Insulin Detemir (Levemir) 20 units SC [facility] Last Admin: 01/10/18 23:01 Dose: 20 u Insulin Human Lispro (Humalog) 0 units SC [facility]; Protocol Last Admin: 01/10/18 22:54 Dose: Not Given Ketorolac Tromethamine (Toradol) 15 mg IVP Q6 PRN PRN Reason: Pain, moderate (4-7) Last Admin: 01/11/18 03:14 Dose: 15 mg Losartan Potassium (Cozaar) 50 mg PO DAILY [facility] Last Admin: 01/10/18 08:41 Dose: 50 mg - Labs Labs: 01/11/18 05:45 01/11/18 05:45 PT 13.0 Seconds (9.8-13.1) 01/11/18 05:45 INR 1.1 01/11/18 05:45 APTT 40.9 Seconds (25.6-37.1) H 01/05/18 12:39 - Constitutional Appears: Well, Non-toxic, No Acute Distress - Head Exam Head Exam: ATRAUMATIC, NORMOCEPHALIC - Extremities Exam Additional comments: LLE focused exam Vascular: DP non-palpable PT nonpalpable, TG warm to cool, no evidence of edema Ortho: Right AKA, left pain to the tip of the hallux Neuro: gross sensation intact, protective sensation diminished Derm: Gangrenous changes noted to the hallux distal to the sulcus, closed fissure noted in the sulcus, minimal serous drainage noted. hyperpigmentation noted in the 2-5 toes, no open lesions, no malodor - Neurological Exam Neurological Exam: Alert, Awake, Oriented x3 - Psychiatric Exam Psychiatric exam: Normal Affect, Normal Mood Assessment and Plan - Assessment and Plan (Free Text) Assessment: 62M evaluated preoperatively at bedside for left hallux amputation Plan: Pt was seen and examined Pt NPO status was confirmed All pre-op testing and clearance in chart Pt has exhausted all conservative treatment at this time and is opting for surgical intervention Pt was explained procedure and post-operative course All pt's questions were answered to satisfaction No guarantees were made Pt understands all risks, benefits and complications of procedure Pt will follow-up with Dr. Pham within 1 week of surgery
--- NOTE | 2018-01-11 08:51 | CP.PCM.PN ---
<Sylvia Navarrete - Last Filed: 01/11/18 10:28> Subjective - Date & Time of Evaluation Date of Evaluation: 01/11/18 Time of Evaluation: 08:51 - Subjective Subjective: 62M patient seen and examined at bedside. Patient resting comfortably and in NAD. He reports pain to his L foot this morning. Patient is aware he is going to surgery today for toe amputation and has remained NPO since last night. He has no questions regarding his procedure. Denies N/V/F/SOB/CP. Objective - Vital Signs/Intake and Output Vital Signs (last 24 hours): Temp Pulse Resp BP Pulse Ox 98.2 F 86 20 141/77 100 01/11/18 08:05 01/11/18 08:05 01/11/18 08:05 01/11/18 08:05 01/11/18 08:05 - Medications Medications: Current Medications Acetaminophen (Tylenol 325mg Tab) 650 mg PO Q6 PRN PRN Reason: Fever >100.4 F Acetaminophen (Tylenol 325mg Tab) 650 mg PO Q6 PRN PRN Reason: Pain, Mild (1-3) Last Admin: 01/03/18 23:34 Dose: 650 mg Aspirin (Aspirin Chewable) 81 mg PO DAILY [facility] Last Admin: 01/10/18 08:42 Dose: 81 mg Atorvastatin Calcium (Lipitor) 40 mg PO DAILY [facility] Last Admin: 01/10/18 08:41 Dose: 40 mg Carvedilol (Coreg) 25 mg PO Q12 [facility] Last Admin: 01/10/18 21:05 Dose: 25 mg Cilostazol (Pletal) 100 mg PO BID [facility] Last Admin: 01/08/18 16:45 Dose: 100 mg Clopidogrel Bisulfate (Plavix) 75 mg PO DAILY [facility] Last Admin: 01/08/18 08:30 Dose: 75 mg Dextrose (Dextrose 50% Inj) 0 ml IV STAT PRN; Protocol PRN Reason: Hypoglycemia Protocol Dextrose (Glutose 15) 0 gm PO ONCE PRN; Protocol PRN Reason: Hypoglycemia Protocol Enoxaparin Sodium (Lovenox) 40 mg SC DAILY [facility]; Protocol Last Admin: 01/10/18 11:15 Dose: Not Given Ferrous Sulfate (Feosol) 325 mg PO BID [facility] Last Admin: 01/10/18 16:57 Dose: 325 mg Gabapentin (Neurontin) 300 mg PO HS [facility] Last Admin: 01/10/18 21:06 Dose: 300 mg Glucagon (Glucagen Diagnostic Kit) 0 mg IM STAT PRN; Protocol PRN Reason: Hypoglycemia Protocol Ibuprofen (Motrin Tab) 600 mg PO Q6 PRN PRN Reason: Pain, moderate (4-7) Last Admin: 01/11/18 00:33 Dose: 600 mg Insulin Detemir (Levemir) 20 units SC [facility] Last Admin: 01/10/18 23:01 Dose: 20 u Insulin Human Lispro (Humalog) 0 units SC [facility]; Protocol Last Admin: 01/10/18 22:54 Dose: Not Given Ketorolac Tromethamine (Toradol) 15 mg IVP Q6 PRN PRN Reason: Pain, moderate (4-7) Last Admin: 01/11/18 03:14 Dose: 15 mg Losartan Potassium (Cozaar) 50 mg PO DAILY [facility] Last Admin: 01/10/18 08:41 Dose: 50 mg - Labs Labs: 01/11/18 05:45 01/11/18 05:45 PT 13.0 Seconds (9.8-13.1) 01/11/18 05:45 INR 1.1 01/11/18 05:45 APTT 40.9 Seconds (25.6-37.1) H 01/05/18 12:39 - Constitutional Appears: Non-toxic, No Acute Distress - Head Exam Head Exam: ATRAUMATIC, NORMOCEPHALIC - Eye Exam Eye Exam: Normal appearance Pupil Exam: NORMAL ACCOMODATION - ENT Exam ENT Exam: Mucous Membranes Moist - Respiratory Exam Respiratory Exam: Clear to Ausculation Bilateral, NORMAL BREATHING PATTERN. absent: Wheezes - Cardiovascular Exam Cardiovascular Exam: REGULAR RHYTHM - GI/Abdominal Exam GI & Abdominal Exam: Soft, Normal Bowel Sounds. absent: Tenderness - Extremities Exam Additional comments: Dressing C/D/I to L foot R BKA, L hallux dry gangrene - Neurological Exam Neurological Exam: Alert, Awake, Oriented x3 - Psychiatric Exam Psychiatric exam: Normal Affect, Normal Mood Assessment and Plan - Assessment and Plan (Free Text) Assessment: 62 y/o man w/ PMHx of PVD, HTN, DMII, gangrenous right foot s/p TMA (DOS: 08/21/17), R AKA (DOS: 10/12/17), and pancreatic/lung mass, admitted for dry gangrene to L hallux with vascular compromise Plan: 1) Left hallux dry gangrene likely secondary to PVD - L foot X-rays; no osseous abnormality noted - Podiatry consult, Dr. Pham, patient to be scheduled for left hallux amputation today at 9:30 am - L CTA; Essentially unremarkable CT angiogram of the abdominal aorta and pelvic arteries. There is mild calcific throughout without significant stenosis. - F/U Vascular surgery. Per Dr. Hightower: severe left distal sfa/pop disease. SFA to popliteal opened up, states patient will do well with hallux amputation - Hold Plavix 75mg PO daily - Hold ASA 81 mg PO daily - Hold Pletal 100 mg BID PO daily - Pain management w/ tylenol and gabapentin Scheduled for left hallux amputation at 9:[address] Pham. NPO except meds after midnight, lovenox/pletal/plavix/ASA held 2) DMII - Uncontrolled, non-compliant with medications - Levemir to 20 Units SC Q12h - Medium lispro/sliding scale - Hypoglycemic protocol - Accu Check ACSH - C/w Lipitor and Gabapentin 3) HTN - Chronic,stable - C/w Coreg 25 BID - Cozzar 50 daily 4) PVD - Chronic - C/w Cilostazol 5) Pancreatic/ lung mass on CT - F/U as outpatient 6) Alcohol abuse/Tobacco use - Educated patient on risks of alcohol and tobacco use 7) DVT PPX - Hold Lovenox 40mg SC daily <Gema Patel - Last Filed: 01/11/18 17:07> Objective - Vital Signs/Intake and Output Vital Signs (last 24 hours): Temp Pulse Resp BP Pulse Ox 98.6 F 90 18 157/82 H 99 01/11/18 16:49 01/11/18 16:49 01/11/18 16:49 01/11/18 16:49 01/11/18 16:49 Intake and Output: 01/11/18 01/11/18 06:59 18:59 Intake Total 700 Balance 700 - Medications Medications: Current Medications Acetaminophen (Tylenol 325mg Tab) 650 mg PO Q6 PRN PRN Reason: Fever >100.4 F Acetaminophen (Tylenol 325mg Tab) 650 mg PO Q6 PRN PRN Reason: Pain, Mild (1-3) Last Admin: 01/03/18 23:34 Dose: 650 mg Acetaminophen (Tylenol 325mg Tab) 650 mg PO Q4 PRN PRN Reason: Pain, Mild (1-3) Aspirin (Aspirin Chewable) 81 mg PO DAILY [facility] Last Admin: 01/11/18 12:34 Dose: Not Given Atorvastatin Calcium (Lipitor) 40 mg PO DAILY [facility] Last Admin: 01/11/18 12:34 Dose: 40 mg Carvedilol (Coreg) 25 mg PO Q12 [facility] Last Admin: 01/11/18 09:05 Dose: 25 mg Cilostazol (Pletal) 100 mg PO BID [facility] Last Admin: 01/08/18 16:45 Dose: 100 mg Clopidogrel Bisulfate (Plavix) 75 mg PO DAILY [facility] Last Admin: 01/08/18 08:30 Dose: 75 mg Dextrose (Dextrose 50% Inj) 0 ml IV STAT PRN; Protocol PRN Reason: Hypoglycemia Protocol Dextrose (Glutose 15) 0 gm PO ONCE PRN; Protocol PRN Reason: Hypoglycemia Protocol Enoxaparin Sodium (Lovenox) 40 mg SC DAILY [facility]; Protocol Last Admin: 01/10/18 11:15 Dose: Not Given Ferrous Sulfate (Feosol) 325 mg PO BID [facility] Last Admin: 01/11/18 12:33 Dose: 325 mg Gabapentin (Neurontin) 300 mg PO HS [facility] Last Admin: 01/10/18 21:06 Dose: 300 mg Glucagon (Glucagen Diagnostic Kit) 0 mg IM STAT PRN; Protocol PRN Reason: Hypoglycemia Protocol Sodium Chloride (Sodium Chloride 0.9%) 1,000 mls @ 0 mls/hr IV .Q0M [facility] Stop: 01/12/18 09:12 Ibuprofen (Motrin Tab) 600 mg PO Q6 PRN PRN Reason: Pain, moderate (4-7) Last Admin: 01/11/18 00:33 Dose: 600 mg Insulin Detemir (Levemir) 20 units SC [facility] Last Admin: 01/11/18 09:07 Dose: Not Given Insulin Human Lispro (Humalog) 0 units SC [facility]; Protocol Last Admin: 01/11/18 12:34 Dose: Not Given Ketorolac Tromethamine (Toradol) 15 mg IVP Q6 PRN PRN Reason: Pain, moderate (4-7) Last Admin: 01/11/18 16:17 Dose: 15 mg Losartan Potassium (Cozaar) 50 mg PO DAILY [facility] Last Admin: 01/11/18 09:05 Dose: 50 mg Oxycodone/Acetaminophen (Percocet 5/325 Mg Tab) 1 tab PO Q4 PRN PRN Reason: Pain, moderate (4-7) Stop: 01/14/18 11:10 - Labs Labs: 01/11/18 05:45 01/11/18 05:45 PT 13.0 Seconds (9.8-13.1) 01/11/18 05:45 INR 1.1 01/11/18 05:45 APTT 40.9 Seconds (25.6-37.1) H 01/05/18 12:39 Attending/Attestation - Attestation I have personally seen and examined this patient.: Yes I have fully participated in the care of the patient.: Yes I have reviewed all pertinent clinical information, including history, physical exam and plan: Yes
[2018-01-11] MEDS ORDERED: Bupivacaine HCl 0.5% PF (30 ml) Inj ONE (09:05)
[2018-01-11] MEDS ORDERED: Lidocaine 1% Inj (20ml) ONE (09:06)
[2018-01-11] MEDS: Insulin Lispro (humaLOG) 100 Units/ml Inj SC SCH ×4 (09:06→22:24)
[2018-01-11] MEDS: Insulin Detemir 100 Units/ml Inj SC SCH ×2 (09:07→22:23)
[2018-01-11] MEDS ORDERED: Lidocaine 1% Inj (20ml) IJ ONE ×2 (09:11→09:42)
[2018-01-11] MEDS ORDERED: Bupivacaine 0.5% Inj(30mL) IJ ONE ×2 (09:11→09:42)
[2018-01-11] MEDS ORDERED: Sodium Chloride 0.9% 1,000 ML IV SCH (09:15)
[2018-01-11] MEDS ORDERED: Lactated Ringer's 1,000 ML IV ONE (09:42)
[2018-01-11] MEDS ORDERED: Midazolam 2 MG/2 ML VIAL ONE (09:44)
[2018-01-11] MEDS ORDERED: Propofol 10 mg/ml Inj (20 ML) ONE ×2 (09:44→10:30)
--- NOTE | 2018-01-11 11:08 | PCM.SURG1 ---
Surgeon's Initial Post Op Note - Surgeon's Notes Surgeon: Dr. Dandre Pham Gas Operations Analyst: Dr. Roxi Abraham PGY-2 Type of Anesthesia: IV Sedation, Local Anesthesia Administered By: Dr. Li Pre-Operative Diagnosis: left foot hallux gangrene Operative Findings: see dictation. I: 20cc 0.5% Marcaine plain. M: 3-0 Vicryl, 4-0 Vicryl, 4-0 Nylon Post-Operative Diagnosis: same Operation Performed: left foot hallux amputation with 1st metatarsal head resection Specimen/Specimens Removed: hallux, 1st metatarsal head left foot Estimated Blood Loss: EBL {In ML}: 10 Blood Products Given: N/A Drains Used: No Drains Post-Op Condition: Good Date of Surgery/Procedure: 01/11/18 Time of Surgery/Procedure: 11:08
[2018-01-11] MEDS ORDERED: Oxycodone/Acetaminophen 5/325 mg Tab PO PRN (11:09)
[2018-01-11] MEDS ORDERED: HYDROmorphone 0.5 mg/0.5 ml ISec IVP PRN (11:16)
--- NOTE | 2018-01-11 14:32 | CP.PCM.PN ---
Subjective - Date & Time of Evaluation Date of Evaluation: 01/11/18 Time of Evaluation: 14:30 - Subjective Subjective: s/p toe amputation Objective - Vital Signs/Intake and Output Vital Signs (last 24 hours): Temp Pulse Resp BP Pulse Ox 97.4 F L 86 20 137/71 98 01/11/18 12:01 01/11/18 12:01 01/11/18 12:01 01/11/18 12:01 01/11/18 12:01 Intake and Output: 01/11/18 01/11/18 06:59 18:59 Intake Total 700 Balance 700 - Medications Medications: Current Medications Acetaminophen (Tylenol 325mg Tab) 650 mg PO Q6 PRN PRN Reason: Fever >100.4 F Acetaminophen (Tylenol 325mg Tab) 650 mg PO Q6 PRN PRN Reason: Pain, Mild (1-3) Last Admin: 01/03/18 23:34 Dose: 650 mg Acetaminophen (Tylenol 325mg Tab) 650 mg PO Q4 PRN PRN Reason: Pain, Mild (1-3) Aspirin (Aspirin Chewable) 81 mg PO DAILY [facility] Last Admin: 01/11/18 12:34 Dose: Not Given Atorvastatin Calcium (Lipitor) 40 mg PO DAILY [facility] Last Admin: 01/11/18 12:34 Dose: 40 mg Carvedilol (Coreg) 25 mg PO Q12 [facility] Last Admin: 01/11/18 09:05 Dose: 25 mg Cilostazol (Pletal) 100 mg PO BID [facility] Last Admin: 01/08/18 16:45 Dose: 100 mg Clopidogrel Bisulfate (Plavix) 75 mg PO DAILY [facility] Last Admin: 01/08/18 08:30 Dose: 75 mg Dextrose (Dextrose 50% Inj) 0 ml IV STAT PRN; Protocol PRN Reason: Hypoglycemia Protocol Dextrose (Glutose 15) 0 gm PO ONCE PRN; Protocol PRN Reason: Hypoglycemia Protocol Enoxaparin Sodium (Lovenox) 40 mg SC DAILY [facility]; Protocol Last Admin: 01/10/18 11:15 Dose: Not Given Ferrous Sulfate (Feosol) 325 mg PO BID [facility] Last Admin: 01/11/18 12:33 Dose: 325 mg Gabapentin (Neurontin) 300 mg PO HS [facility] Last Admin: 01/10/18 21:06 Dose: 300 mg Glucagon (Glucagen Diagnostic Kit) 0 mg IM STAT PRN; Protocol PRN Reason: Hypoglycemia Protocol Sodium Chloride (Sodium Chloride 0.9%) 1,000 mls @ 0 mls/hr IV .Q0M [facility] Stop: 01/12/18 09:12 Ibuprofen (Motrin Tab) 600 mg PO Q6 PRN PRN Reason: Pain, moderate (4-7) Last Admin: 01/11/18 00:33 Dose: 600 mg Insulin Detemir (Levemir) 20 units SC [facility] Last Admin: 01/11/18 09:07 Dose: Not Given Insulin Human Lispro (Humalog) 0 units SC [facility]; Protocol Last Admin: 01/11/18 12:34 Dose: Not Given Ketorolac Tromethamine (Toradol) 15 mg IVP Q6 PRN PRN Reason: Pain, moderate (4-7) Last Admin: 01/11/18 03:14 Dose: 15 mg Losartan Potassium (Cozaar) 50 mg PO DAILY [facility] Last Admin: 01/11/18 09:05 Dose: 50 mg Oxycodone/Acetaminophen (Percocet 5/325 Mg Tab) 1 tab PO Q4 PRN PRN Reason: Pain, moderate (4-7) Stop: 01/14/18 11:10 - Labs Labs: 01/11/18 05:45 01/11/18 05:45 PT 13.0 Seconds (9.8-13.1) 01/11/18 05:45 INR 1.1 01/11/18 05:45 APTT 40.9 Seconds (25.6-37.1) H 01/05/18 12:39 - Constitutional Appears: Well - Head Exam Head Exam: ATRAUMATIC, NORMAL INSPECTION, NORMOCEPHALIC - Eye Exam Eye Exam: EOMI, Normal appearance, PERRL Pupil Exam: NORMAL ACCOMODATION, PERRL - ENT Exam ENT Exam: Mucous Membranes Moist, Normal Exam - Neck Exam Neck Exam: Full ROM, Normal Inspection. absent: Lymphadenopathy - Respiratory Exam Respiratory Exam: Clear to Ausculation Bilateral, NORMAL BREATHING PATTERN - Cardiovascular Exam Cardiovascular Exam: REGULAR RHYTHM, +S1, +S2. absent: Murmur - GI/Abdominal Exam GI & Abdominal Exam: Soft, Normal Bowel Sounds. absent: Tenderness - Extremities Exam Extremities Exam: Full ROM, Normal Capillary Refill, Normal Inspection. absent: Joint Swelling, Pedal Edema - Back Exam Back Exam: NORMAL INSPECTION - Neurological Exam Neurological Exam: Alert, Awake, CN II-XII Intact, Normal Gait, Oriented x3 - Psychiatric Exam Psychiatric exam: Normal Affect, Normal Mood - Skin Skin Exam: Dry, Intact, Normal Color, Warm Assessment and Plan (1) Gangrene of foot Assessment & Plan: s/p toe amputation cont dapt cont statins cont arb Status: Acute (2) Gangrene due to arterial insufficiency Status: Acute (3) Hypertension Status: Acute
--- NOTE | 2018-01-11 14:55 | RAD ---
Date of service: 01/11/2018 PROCEDURE: Left Foot Radiographs. HISTORY: s/p surgery COMPARISON: Preoperative study 12/28/2017 FINDINGS: BONES: Postoperative findings include resection of the 1st digit and distal 1st metatarsal. JOINTS: Normal. SOFT TISSUES: Presumed postoperative air within the soft tissues at the surgical site. OTHER FINDINGS: None. IMPRESSION: Satisfactory postoperative status.
[2018-01-12 06:18] LABS: HEMOGLOBIN 8.6 g/dL (12.0-18.0); MEAN CELL VOLUME 89.7 fl (80.0-94.0); MEAN CORPUSCULAR HEMOGLOBIN 29.4 pg (27.0-31.0); MEAN CORPUSCULAR HGB CONC 32.8 g/dL (33.0-37.0); RBC 2.92 Mil/uL (4.40-5.90); RED CELL DISTRIBUTION WIDTH 14.1 % (11.5-14.5); WHITE BLOOD COUNT 9.9 K/uL (4.8-10.8)
[2018-01-12 06:35] LABS: BLOOD UREA NITROGEN 15 mg/dl (9-20); CALCIUM 9.2 mg/dL (8.4-10.2); GFR NON-AFRICAN AMERICAN > 60
--- NOTE | 2018-01-12 07:46 | PCM.OP ---
Operative Report - Operative Report Date of Surgery/Procedure: 01/11/18 Time of Surgery/Procedure: 09:30 Surgeon: Dr. Dandre Pham Tire Inspector: Dr. Roxi Abraham PGY-2 Anesthesia/Sedation: IV sedation with local anesthesia Pre-Operative Diagnosis: left foot hallux gangrene Post-Operative Diagnosis: same Indication for Surgery: The patient is a 62 year-old male with the above diagnosis. The patient has exhausted all conservative treatment at this time and now requires surgical intervention. The patient signed the consent after careful explanation of risks, benefits, complications and alternatives for surgical procedure. No guarantees were given nor implied. NPO status was confirmed prior to taking patient to the operating room. Operative Findings: Preparation: The patient was brought in to the operating room and placed on the operating room table in a supine position. Timeout was performed for id entification of the correct patient and procedure. After induction of IV sedation, the patient received a total of 20 mL of 0.5% Marcaine plain in a Dickerson block fashion to the left foot. The left foot was then prepped and draped in normal sterile manner and the procedure began. No tourniquet was utilized during the procedure. Procedure/Operation Description: Procedure #1: Left foot hallux amputation with first metatarsal head resection Attention was drawn to the left hallux which was noted to be gangrenous and necrotic from the level of the metatarsophalangeal joint extending distally to the tip of the digit. At this time, a racket-type incision was made using a # 15 blade at the level of the metatarsophalangeal joint, with the apex of the incision at the dorsal aspect of the first interspace. The incision was then extended down through the subcutaneous layers down to the level of bone, extending into the first metatarsophalangeal joint. Using a bone clamp to stabilize the hallux, the proximal and distal phalanges were then disarticulated from the foot at the level of the metatarsophalangeal joint. Next, using a sagittal saw, the head of the first metatarsal was resected and passed from the operative field to be sent for pathology. Deep wound cultures were obtained at this time. Next, the site was flushed with copious amounts of normal sterile saline. Deep tissues were reapproximated with 3-0 Vicryl and 4-0 Vicryl sutures and retention skin sutures were placed with 4-0 Nylon. Postoperative bandages included Adaptic, 4x4 gauze, kerlix and a light JESSICA bandage. Estimated Blood Loss: 10cc Complications: none Specimen: left foot great toe, 1st metatarsal head Discharge & Condition: The patient tolerated the anesthesia and procedure well and was escorted to the recovery room with vital signs stable and neurovascular status intact to the l eft foot. Patient is to remain full weight bearing to the left lower extremity with the use of a surgical shoe. Patient is to return to floors and podiatry will continue to follow patient. Upon discharge, patient will follow up with Dr. Pham in [place] pod[facility] clinic.
[2018-01-12] MEDS: Insulin Lispro (humaLOG) 100 Units/ml Inj SC SCH ×4 (09:16→22:43)
[2018-01-12] MEDS: Cilostazol 100 mg Tab UD PO SCH ×2 (09:24→16:52)
--- NOTE | 2018-01-12 09:27 | CP.PCM.PN ---
Subjective - Date & Time of Evaluation Date of Evaluation: 01/12/18 Time of Evaluation: 09:25 - Subjective Subjective: 62M patient seen and examined, POD#1 L hallux amputation secondary to dry gangrene. Patient states that he is in a significant amount of pain this morning and was unable to sleep through the night. He states that he has been tolerating his diet well and has been voiding freely. He denies N/V/F/SOB/CP. Objective - Vital Signs/Intake and Output Vital Signs (last 24 hours): Temp Pulse Resp BP Pulse Ox 97.9 F 92 H 20 155/82 H 98 01/12/18 08:07 01/12/18 08:07 01/12/18 08:07 01/12/18 08:07 01/12/18 08:07 - Medications Medications: Current Medications Acetaminophen (Tylenol 325mg Tab) 650 mg PO Q6 PRN PRN Reason: Fever >100.4 F Acetaminophen (Tylenol 325mg Tab) 650 mg PO Q6 PRN PRN Reason: Pain, Mild (1-3) Last Admin: 01/03/18 23:34 Dose: 650 mg Acetaminophen (Tylenol 325mg Tab) 650 mg PO Q4 PRN PRN Reason: Pain, Mild (1-3) Aspirin (Aspirin Chewable) 81 mg PO DAILY [facility] Last Admin: 01/11/18 12:34 Dose: Not Given Atorvastatin Calcium (Lipitor) 40 mg PO DAILY [facility] Last Admin: 01/11/18 12:34 Dose: 40 mg Carvedilol (Coreg) 25 mg PO Q12 [facility] Last Admin: 01/11/18 20:26 Dose: 25 mg Cilostazol (Pletal) 100 mg PO BID [facility] Last Admin: 01/08/18 16:45 Dose: 100 mg Clopidogrel Bisulfate (Plavix) 75 mg PO DAILY [facility] Last Admin: 01/08/18 08:30 Dose: 75 mg Dextrose (Dextrose 50% Inj) 0 ml IV STAT PRN; Protocol PRN Reason: Hypoglycemia Protocol Dextrose (Glutose 15) 0 gm PO ONCE PRN; Protocol PRN Reason: Hypoglycemia Protocol Enoxaparin Sodium (Lovenox) 40 mg SC DAILY [facility]; Protocol Last Admin: 01/10/18 11:15 Dose: Not Given Ferrous Sulfate (Feosol) 325 mg PO BID [facility] Last Admin: 01/11/18 17:51 Dose: 325 mg Gabapentin (Neurontin) 300 mg PO HS [facility] Last Admin: 01/11/18 22:23 Dose: 300 mg Glucagon (Glucagen Diagnostic Kit) 0 mg IM STAT PRN; Protocol PRN Reason: Hypoglycemia Protocol Ibuprofen (Motrin Tab) 600 mg PO Q6 PRN PRN Reason: Pain, moderate (4-7) Last Admin: 01/12/18 00:31 Dose: 600 mg Insulin Detemir (Levemir) 20 units SC [facility] Last Admin: 01/11/18 22:23 Dose: 20 u Insulin Human Lispro (Humalog) 0 units SC [facility]; Protocol Last Admin: 01/11/18 22:24 Dose: 2 units Ketorolac Tromethamine (Toradol) 15 mg IVP Q6 PRN PRN Reason: Pain, moderate (4-7) Last Admin: 01/12/18 02:01 Dose: 15 mg Ketorolac Tromethamine (Toradol) 10 mg PO Q4 [facility] Last Admin: 01/12/18 05:00 Dose: Not Given Losartan Potassium (Cozaar) 50 mg PO DAILY [facility] Last Admin: 01/11/18 09:05 Dose: 50 mg Oxycodone/Acetaminophen (Percocet 5/325 Mg Tab) 1 tab PO Q4 PRN PRN Reason: Pain, moderate (4-7) Stop: 01/14/18 11:10 - Labs Labs: 01/12/18 06:00 01/12/18 06:00 PT 13.0 Seconds (9.8-13.1) 01/11/18 05:45 INR 1.1 01/11/18 05:45 APTT 40.9 Seconds (25.6-37.1) H 01/05/18 12:39 - Constitutional Appears: Well, Non-toxic, No Acute Distress - Head Exam Head Exam: ATRAUMATIC, NORMOCEPHALIC - Eye Exam Eye Exam: Normal appearance - ENT Exam ENT Exam: Mucous Membranes Moist - Respiratory Exam Respiratory Exam: NORMAL BREATHING PATTERN - Cardiovascular Exam Cardiovascular Exam: REGULAR RHYTHM - GI/Abdominal Exam GI & Abdominal Exam: Soft, Normal Bowel Sounds - Extremities Exam Additional comments: Wound vac applied to L foot and functioning properly, dressing C/D/I - Neurological Exam Neurological Exam: Alert, Awake, Oriented x3 - Psychiatric Exam Psychiatric exam: Normal Affect, Normal Mood - Skin Skin Exam: Warm Assessment and Plan - Assessment and Plan (Free Text) Assessment: 62 y/o man w/ PMHx of PVD, HTN, DMII, gangrenous right foot s/p TMA (DOS: 08/21/17), R AKA (DOS: 10/12/17), and pancreatic/lung mass, admitted for dry gangrene to L hallux with vascular compromise, POD #1 of L hallux amputation Plan: 1) POD #1 Left hallux amputation secondary to dry gangrene - L foot X-rays; no osseous abnormality noted - Podiatry consult, Dr. Pham, patient POD #1 of left hallux amputation (DOS: 01/11/18) - ID consulted, Dr. Powers, reccs appreciated - L CTA; Essentially unremarkable CT angiogram of the abdominal aorta and pelvic arteries. There is mild calcific throughout without significant stenosis. - F/U Vascular surgery. Per Dr. Hightower: severe left distal sfa/pop disease. SFA to popliteal opened up, states patient will do well with hallux amputation - C/w Plavix 75mg PO daily - C/w ASA 81 mg PO daily - C/w Pletal 100 mg BID PO daily - Pain management w/ tylenol, percocet, toradol 2) DMII - Uncontrolled, non-compliant with medications - Levemir to 20 Units SC Q12h - Medium lispro/sliding scale - Hypoglycemic protocol - Accu Check [facility] - C/w Lipitor and Gabapentin 3) HTN - Chronic,stable - C/w Coreg 25 BID - Cozzar 50 daily 4) PVD - Chronic - C/w Cilostazol 5) Pancreatic/ lung mass on CT - F/U as outpatient 6) Alcohol abuse/Tobacco use - Educated patient on risks of alcohol and tobacco use 7) DVT PPX - Hold Lovenox 40mg SC daily
[2018-01-12] MEDS: Insulin Detemir 100 Units/ml Inj SC SCH ×2 (09:37→22:48)
--- NOTE | 2018-01-12 10:17 | CP.PCM.CON ---
History of Present Illness - History of Present Illness History of Present Illness: 62 y/o male, with PMHx of DM, HTN, seen and evaluated for left gangrenous changes to the hallux. Patient states it started off as tiny lesion and has now progressed to the entire toe. Initially started a month ago but because he didnt have insurnace was unable to see a doctor for it. PMHx: DM, HTN severe vascular occlusive disease ( gangrenous right foot status AKA done on October 12, 2017) pancreatic/lung mass on CAT scan hypertension PSHx: Right AKA, cholecystectomy Social: Current tobacco use ALL: NKDA Review of Systems - Review of Systems All systems: reviewed and no additional remarkable complaints except - Constitutional Constitutional: As Per HPI - EENT Eyes: absent: As Per HPI, Blind Spots, Blurred Vision, Change in Vision, Decreased Night Vision, Diplopia, Discharge, Dry Eye, Exophthalmos, Floaters, Irritation, Itchy Eyes, Loss of Peripheral Vision, Pain, Photophobia, Requires Corrective Lenses, Sees Flashes, Spots in Vision, Tunnel Vision, Other Visual Disturbances, Loss of Vision, Other Ears: absent: As Per HPI, Decreased Hearing, Ear Discharge, Ear Pain, Tinnitus, Abnormal Hearing, Disequilibrium, Dizziness, Other Nose/Mouth/Throat: absent: As Per HPI, Epistaxis, Nasal Congestion, Nasal Discha rge, Nasal Obstruction, Nasal Trauma, Nose Pain, Post Nasal Drip, Sinus Pain, Sinus Pressure, Bleeding Gums, Change in Voice, Dental Pain, Dry Mouth, Dysphagia, Halitosis, Hoarsness, Lip Swelling, Mouth Lesions, Mouth Pain, Odynophagia, Sore Throat, Throat Swelling, Tongue Swelling, Facial Pain, Neck Pain, Neck Mass, Other - Cardiovascular Cardiovascular: As Per HPI - Respiratory Respiratory: As Per HPI, Cough - Gastrointestinal Gastrointestinal: As Per HPI - Genitourinary Genitourinary: absent: As Per HPI, Change in Urinary Stream, Difficulty Urinating, Dysuria, Flank Pain, Hematuria, Pyuria, Nocturia, Urinary Incontinence, Urinary Frequency, Urinary Hesitance, Urinary Urgency, Voiding Freq/Small Amts, Freq UTI, Hx Renal/Bladder Calculi, Hx /Renal Surgery, Bladder Distension, Other - Musculoskeletal Musculoskeletal: As Per HPI - Integumentary Integumentary: As Per HPI - Neurological Neurological: absent: As Per HPI, Abnormal Gait, Abnormal Hearing, Abnormal Movements, Abnormal Speech, Behavioral Changes, Burning Sensations, Confusion, Convulsions, Disequilibrium, Dizziness, Numbness, Focal Weakness, Frequent Falls, Headaches, Lack of Coordination, Loss of Vision, Memory Loss, Paresthesias, Radicular Pain, Restless Legs, Sensory Deficit, Syncope, Tingling, Tremor, Vertigo, Weakness, Other Visual Disturbances, Other - Psychiatric Psychiatric: absent: As Per HPI, Abnormal Sleep Pattern, Anhedonia, Anxiety, Auditory Hallucinations, Behavioral Changes, Change in Appetite, Change in Libido, Confusion, Depression, Difficulty Concentrating, Hallucinations, Homicidal Ideation, Hopelessness, Irritability, Memory Loss, Mood Swings, Panic Attacks, Paranoia, Suicidal Ideation, Visual Hallucinations, Tactile Hallucinations, Other - Endocrine Endocrine: absent: As Per HPI, Change in Body Appearance, Change in Libido, Cold Intolorance, Deepening of Voice, Excessive Sweating, Fatigue, Flushing, Heat Intolorance, Increase in Ring/Shoe/Hat Size, Palpitations, Polydipsia, Polyphagia, Polyuria, Other - Hematologic/Lymphatic Hematologic: absent: As Per HPI, Easy Bleeding, Easy Bruising, Lymphadenopathy, Other Past Patient History - Infectious Disease Hx of Infectious Diseases: None - Past Medical History & Family History Past Medical History?: Yes - Past Social History Smoking Status: Current Some Days Smoker - CARDIAC Hx Hypercholesterolemia: Yes Hx Hypertension: Yes - PULMONARY Hx Pneumonia: Yes - NEUROLOGICAL Hx Neurological Disorder: No - HEENT Hx HEENT Problems: No - RENAL Hx Chronic Kidney Disease: No - ENDOCRINE/METABOLIC Hx Endocrine Disorders: Yes Hx Diabetes Mellitus Type 2: Yes - HEMATOLOGICAL/ONCOLOGICAL Hx Human Immunodeficiency Virus (HIV): No - INTEGUMENTARY Hx Dermatological Problems: No - MUSCULOSKELETAL/RHEUMATOLOGICAL Hx Musculoskeletal Disorders: Yes Hx Falls: Yes Hx Fractures: No - GASTROINTESTINAL Hx Gall Bladder Disease: Yes - GENITOURINARY/GYNECOLOGICAL Hx Genitourinary Disorders: No - PSYCHIATRIC Hx Psychophysiologic Disorder: No Hx Substance Use: No - SURGICAL HISTORY Hx Surgeries: Yes Hx Amputation: Yes (R above knee amputation Sep 2017) Hx Cholecystectomy: Yes Other/Comment: Gallstones removed. Left arm surgery. fluid removed from his lung - ANESTHESIA Hx Anesthesia: Yes Hx Anesthesia Reactions: No Hx Malignant Hyperthermia: No Meds Allergies/Adverse Reactions: Allergies Allergy/AdvReac Type Severity Reaction Status Date / Time garlic Allergy Mild RASH Verified 12/29/17 13:54 - Medications Medications: Current Medications Acetaminophen (Tylenol 325mg Tab) 650 mg PO Q6 PRN PRN Reason: Fever >100.4 F Acetaminophen (Tylenol 325mg Tab) 650 mg PO Q6 PRN PRN Reason: Pain, Mild (1-3) Last Admin: 01/03/18 23:34 Dose: 650 mg Acetaminophen (Tylenol 325mg Tab) 650 mg PO Q4 PRN PRN Reason: Pain, Mild (1-3) Aspirin (Aspirin Chewable) 81 mg PO DAILY [facility] Last Admin: 01/12/18 09:19 Dose: 81 mg Atorvastatin Calcium (Lipitor) 40 mg PO DAILY [facility] Last Admin: 01/12/18 09:23 Dose: 40 mg Carvedilol (Coreg) 25 mg PO Q12 [facility] Last Admin: 01/12/18 09:19 Dose: 25 mg Cilostazol (Pletal) 100 mg PO BID [facility] Last Admin: 01/12/18 09:24 Dose: 100 mg Clopidogrel Bisulfate (Plavix) 75 mg PO DAILY [facility] Last Admin: 01/12/18 09:24 Dose: 75 mg Dextrose (Dextrose 50% Inj) 0 ml IV STAT PRN; Protocol PRN Reason: Hypoglycemia Protocol Dextrose (Glutose 15) 0 gm PO ONCE PRN; Protocol PRN Reason: Hypoglycemia Protocol Enoxaparin Sodium (Lovenox) 40 mg SC DAILY [facility]; Protocol Last Admin: 01/10/18 11:15 Dose: Not Given Ferrous Sulfate (Feosol) 325 mg PO BID [facility] Last Admin: 01/12/18 09:23 Dose: 325 mg Gabapentin (Neurontin) 300 mg PO HS [facility] Last Admin: 01/11/18 22:23 Dose: 300 mg Glucagon (Glucagen Diagnostic Kit) 0 mg IM STAT PRN; Protocol PRN Reason: Hypoglycemia Protocol Ibuprofen (Motrin Tab) 600 mg PO Q6 PRN PRN Reason: Pain, moderate (4-7) Last Admin: 01/12/18 00:31 Dose: 600 mg Insulin Detemir (Levemir) 20 units SC [facility] Last Admin: 01/12/18 09:37 Dose: 20 u Insulin Human Lispro (Humalog) 0 units SC [facility]; Protocol Last Admin: 01/12/18 09:16 Dose: Not Given Ketorolac Tromethamine (Toradol) 15 mg IVP Q6 PRN PRN Reason: Pain, moderate (4-7) Last Admin: 01/12/18 09:25 Dose: 15 mg Ketorolac Tromethamine (Toradol) 10 mg PO Q4 [facility] Last Admin: 01/12/18 09:28 Dose: Not Given Losartan Potassium (Cozaar) 50 mg PO DAILY [facility] Last Admin: 01/12/18 09:22 Dose: 50 mg Oxycodone/Acetaminophen (Percocet 5/325 Mg Tab) 1 tab PO Q4 PRN PRN Reason: Pain, moderate (4-7) Stop: 01/14/18 11:10 Physical Exam - Constitutional Appears: Non-toxic, Cachectic, Chronically Ill - Head Exam Head Exam: ATRAUMATIC, NORMAL INSPECTION, NORMOCEPHALIC - Eye Exam Eye Exam: absent: Scleral icterus - ENT Exam ENT Exam: Mucous Membranes Dry, Normal External Ear Exam - Neck Exam Neck exam: Negative for: Lymphadenopathy - Respiratory Exam Respiratory Exam: Decreased Breath Sounds, Clear to Auscultation Bilateral - Cardiovascular Exam Cardiovascular Exam: REGULAR RHYTHM, +S1, +S2 - GI/Abdominal Exam GI & Abdominal Exam: Diminished Bowel Sounds, Soft. absent: Tenderness - Rectal Exam Rectal Exam: Deferred - Exam Exam: NORMAL INSPECTION - Extremities Exam Additional comments: right BKA left great toe amp site with vac in place - Back Exam Back exam: absent: CVA tenderness (L), CVA tenderness (R) - Neurological Exam Neurological exam: Alert, CN II-XII Intact, Oriented x3, Reflexes Normal - Psychiatric Exam Psychiatric exam: Normal Mood - Skin Skin Exam: Dry Results - Vital Signs Recent Vital Signs: Last Vital Signs Temp 97.9 F 01/12/18 08:07 Pulse 55 L 01/12/18 09:22 Resp 20 01/12/18 08:07 BP 154/76 H 01/12/18 09:22 Pulse Ox 98 01/12/18 08:07 - Labs Result Diagrams: 01/12/18 06:00 01/12/18 06:00 Labs: Laboratory Results - last 24 hr 01/11/18 01/11/18 01/11/18 12:04 16:04 WBC RBC Hgb Hct MCV MCH MCHC RDW Plt Count Sodium Potassium Chloride Carbon Dioxide Anion Gap BUN Creatinine Est GFR ( Amer) Est GFR (Non-Af Amer) POC Glucose (mg/dL) 126 H 111 H 272 H Random Glucose Calcium 01/11/18 01/12/18 01/12/18 22:06 05:24 06:00 WBC 9.9 RBC 2.92 L Hgb 8.6 L Hct 26.2 L MCV 89.7 MCH 29.4 MCHC 32.8 L RDW 14.1 Plt Count 682 H Sodium Potassium Chloride Carbon Dioxide Anion Gap BUN Creatinine Est GFR ( Amer) Est GFR (Non-Af Amer) POC Glucose (mg/dL) 323 H 52 L Random Glucose Calcium 01/12/18 01/12/18 06:00 06:53 WBC RBC Hgb Hct MCV MCH MCHC RDW Plt Count Sodium 141 Potassium 4.6 Chloride 107 Carbon Dioxide 25 Anion Gap 14 BUN 15 Creatinine 0.7 L Est GFR ( Amer) > 60 Est GFR (Non-Af Amer) > 60 POC Glucose (mg/dL) 132 H Random Glucose 98 Calcium 9.2 Assessment & Plan (1) Gangrene of foot Status: Acute (2) Pancreatic mass Status: Acute (3) S/P AKA (above knee amputation) unilateral Status: Acute (4) Diabetes mellitus type 2 in nonobese Status: Chronic (5) Pancreatic mass Status: Chronic - Assessment and Plan (Free Text) Assessment: await OR cultures cont IV antibiotics wound care
--- NOTE | 2018-01-12 12:22 | CP.PCM.PN ---
Subjective - Date & Time of Evaluation Date of Evaluation: 01/12/18 Time of Evaluation: 12:17 - Subjective Subjective: Podiatry progress note for Dr. Pham 62M POD 1 left hallux amputation seen at bedside. In pain today and had trouble sleeping last night due to pain. VAC in place and intact. Denies N/V/F/C/SOB/CP. States he is able to eat and void freely. Objective - Vital Signs/Intake and Output Vital Signs (last 24 hours): Temp Pulse Resp BP Pulse Ox 97.9 F 55 L 20 154/76 H 98 01/12/18 08:07 01/12/18 09:22 01/12/18 08:07 01/12/18 09:22 01/12/18 08:07 - Medications Medications: Current Medications Acetaminophen (Tylenol 325mg Tab) 650 mg PO Q6 PRN PRN Reason: Fever >100.4 F Acetaminophen (Tylenol 325mg Tab) 650 mg PO Q6 PRN PRN Reason: Pain, Mild (1-3) Last Admin: 01/03/18 23:34 Dose: 650 mg Acetaminophen (Tylenol 325mg Tab) 650 mg PO Q4 PRN PRN Reason: Pain, Mild (1-3) Aspirin (Aspirin Chewable) 81 mg PO DAILY [facility] Last Admin: 01/12/18 09:19 Dose: 81 mg Atorvastatin Calcium (Lipitor) 40 mg PO DAILY [facility] Last Admin: 01/12/18 09:23 Dose: 40 mg Carvedilol (Coreg) 25 mg PO Q12 [facility] Last Admin: 01/12/18 09:19 Dose: 25 mg Cilostazol (Pletal) 100 mg PO BID [facility] Last Admin: 01/12/18 09:24 Dose: 100 mg Clopidogrel Bisulfate (Plavix) 75 mg PO DAILY [facility] Last Admin: 01/12/18 09:24 Dose: 75 mg Dextrose (Dextrose 50% Inj) 0 ml IV STAT PRN; Protocol PRN Reason: Hypoglycemia Protocol Dextrose (Glutose 15) 0 gm PO ONCE PRN; Protocol PRN Reason: Hypoglycemia Protocol Enoxaparin Sodium (Lovenox) 40 mg SC DAILY [facility]; Protocol Last Admin: 01/10/18 11:15 Dose: Not Given Ferrous Sulfate (Feosol) 325 mg PO BID [facility] Last Admin: 01/12/18 09:23 Dose: 325 mg Gabapentin (Neurontin) 300 mg PO HS [facility] Last Admin: 01/11/18 22:23 Dose: 300 mg Glucagon (Glucagen Diagnostic Kit) 0 mg IM STAT PRN; Protocol PRN Reason: Hypoglycemia Protocol Ibuprofen (Motrin Tab) 600 mg PO Q6 PRN PRN Reason: Pain, moderate (4-7) Last Admin: 01/12/18 00:31 Dose: 600 mg Insulin Detemir (Levemir) 20 units SC [facility] Last Admin: 01/12/18 09:37 Dose: 20 u Insulin Human Lispro (Humalog) 0 units SC [facility]; Protocol Last Admin: 01/12/18 09:16 Dose: Not Given Ketorolac Tromethamine (Toradol) 15 mg IVP Q6 PRN PRN Reason: Pain, moderate (4-7) Last Admin: 01/12/18 09:25 Dose: 15 mg Ketorolac Tromethamine (Toradol) 10 mg PO Q4 [facility] Last Admin: 01/12/18 09:28 Dose: Not Given Losartan Potassium (Cozaar) 50 mg PO DAILY [facility] Last Admin: 01/12/18 09:22 Dose: 50 mg Oxycodone/Acetaminophen (Percocet 5/325 Mg Tab) 1 tab PO Q4 PRN PRN Reason: Pain, moderate (4-7) Stop: 01/14/18 11:10 - Labs Labs: 01/12/18 06:00 01/12/18 06:00 PT 13.0 Seconds (9.8-13.1) 01/11/18 05:45 INR 1.1 01/11/18 05:45 APTT 40.9 Seconds (25.6-37.1) H 01/05/18 12:39 - Constitutional Appears: Well, Non-toxic, No Acute Distress - Head Exam Head Exam: ATRAUMATIC, NORMOCEPHALIC - Extremities Exam Additional comments: VAC in place to left foot POD 1 left hallux removal - Neurological Exam Neurological Exam: Alert, Awake, Oriented x3 - Psychiatric Exam Psychiatric exam: Normal Affect, Normal Mood Assessment and Plan - Assessment and Plan (Free Text) Assessment: 62M POD 1 left hallux amputation Plan: Patient seen and evaluated Afebrile, absent leukocytosis Post-op left foot x-ray - satisfactory postoperative status Path sent from surgery - f/u results Wound culture 01/11 - pending, f/u results Wound VAC intact and functioning Discussed leaving with VAC as will aid in patient healing and closure of surgical site however patient cannot afford and is uninsured - will provide local wound care prior to d/c and will have patient follow up in the podiatry clinic regularly Continue pain management per medicine - recjuan appreciated Podiatry will continue to follow the patient while in house
[2018-01-12] MEDS: Enoxaparin 40 mg Syringe SC SCH (12:27)
[2018-01-12] MEDS ORDERED: Oxycodone/Acetaminophen 5/325 mg Tab PO PRN (13:04)
[2018-01-13 08:08] VITALS: PULSE 90; O2SAT 98
[2018-01-13] MEDS: Insulin Detemir 100 Units/ml Inj SC SCH (08:49)
[2018-01-13] MEDS: Insulin Lispro (humaLOG) 100 Units/ml Inj SC SCH ×3 (08:49→17:44)
[2018-01-13] MEDS: Cilostazol 100 mg Tab UD PO SCH ×2 (08:50→16:09)
[2018-01-13] MEDS: Enoxaparin 40 mg Syringe SC SCH (08:50)
[2018-01-13] MEDS ORDERED: Mupirocin 2% Oint 1GM UD TOP SCH (09:00)
--- NOTE | 2018-01-13 11:06 | CP.PCM.DIS ---
Provider - Provider Date of Admission: 12/28/17 17:04 Attending physician: Satya Elena MD Consults: Podiatric Surgery: Dr. Pham Vascular: Dr. Hightower Infectious Disease: Dr. Powers Time Spent in preparation of Discharge (in minutes): 30 Hospital Course - Lab Results Lab Results: Micro Results 01/11/18 10:23 Toe Gram Stain - Final 01/11/18 10:23 Toe Wound Culture - Final Citrobacter Freundii Most Recent Lab Values WBC 9.9 K/uL (4.8-10.8) 01/12/18 06:00 RBC 2.92 Mil/uL (4.40-5.90) L 01/12/18 06:00 Hgb 8.6 g/dL (12.0-18.0) L 01/12/18 06:00 Hct 26.2 % (35.0-51.0) L 01/12/18 06:00 MCV 89.7 fl (80.0-94.0) 01/12/18 06:00 MCH 29.4 pg (27.0-31.0) 01/12/18 06:00 MCHC 32.8 g/dL (33.0-37.0) L 01/12/18 06:00 RDW 14.1 % (11.5-14.5) 01/12/18 06:00 Plt Count 682 K/uL (130-400) H 01/12/18 06:00 MPV 9.6 fl (7.2-11.7) 12/29/17 05:30 Neut % (Auto) 64.7 % (50.0-75.0) 12/29/17 05:30 Lymph % (Auto) 25.7 % (20.0-40.0) 12/29/17 05:30 [place] % (Auto) 6.8 % (0.0-10.0) 12/29/17 05:30 Eos % (Auto) 1.9 % (0.0-4.0) 12/29/17 05:30 Baso % (Auto) 0.9 % (0.0-2.0) 12/29/17 05:30 Neut # (Auto) 7.1 K/uL (1.8-7.0) H 12/29/17 05:30 Lymph # (Auto) 2.8 K/uL (1.0-4.3) 12/29/17 05:30 [place] # (Auto) 0.8 K/uL (0.0-0.8) 12/29/17 05:30 Eos # (Auto) 0.2 K/uL (0.0-0.7) 12/29/17 05:30 Baso # (Auto) 0.1 K/uL (0.0-0.2) 12/29/17 05:30 Retic Count 1.5 % (0.5-1.5) 01/09/18 19:00 PT 13.0 Seconds (9.8-13.1) 01/11/18 05:45 INR 1.1 01/11/18 05:45 APTT 40.9 Seconds (25.6-37.1) H 01/05/18 12:39 Sodium 141 mmol/l (132-148) 01/12/18 06:00 Potassium 4.6 MMOL/L (3.6-5.0) 01/12/18 06:00 Chloride 107 mmol/L (98-107) 01/12/18 06:00 Carbon Dioxide 25 mmol/L (22-30) 01/12/18 06:00 Anion Gap 14 (10-20) 01/12/18 06:00 BUN 15 mg/dl (9-20) 01/12/18 06:00 Creatinine 0.7 mg/dl (0.8-1.5) L 01/12/18 06:00 Est GFR ( Amer) > 60 01/12/18 06:00 Est GFR (Non-Af Amer) > 60 01/12/18 06:00 POC Glucose (mg/dL) 130 mg/dL (65-110) H 01/13/18 05:51 Random Glucose 98 mg/dL (75-110) 01/12/18 06:00 Calcium 9.2 mg/dL (8.4-10.2) 01/12/18 06:00 Iron 39 ug/dL (49-181) L 01/09/18 19:00 TIBC 241 ug/dL (250-450) L 01/09/18 19:00 % Saturation 16 % (20-55) L 01/09/18 19:00 Transferrin 165.32 mg/dL (206-381) L 01/09/18 19:00 Ferritin 254.0 ng/Ml (17.9-464) 01/09/18 19:00 Total Bilirubin 0.3 mg/dl (0.2-1.3) 12/31/17 05:30 AST 23 U/L (17-59) 12/31/17 05:30 ALT 17 U/L (21-72) L 12/31/17 05:30 Alkaline Phosphatase 64 U/L (38-126) 12/31/17 05:30 Total Protein 6.7 G/DL (6.3-8.2) 12/31/17 05:30 Albumin 3.3 g/dL (3.5-5.0) L 12/31/17 05:30 Globulin 3.5 gm/dL (2.2-3.9) 12/31/17 05:30 Albumin/Globulin Ratio 0.9 (1.0-2.1) L 12/31/17 05:30 Urine Color Yellow (YELLOW) 12/28/17 17:56 Urine Clarity Slighty-cloudy (Clear) 12/28/17 17:56 Urine pH 6.0 (5.0-8.0) 12/28/17 17:56 Ur Specific [place] 1.029 (1.003-1.030) 12/28/17 17:56 Urine Protein Negative mg/dL (NEGATIVE) 12/28/17 17:56 Urine Glucose (UA) >=500 mg/dL (Normal) 12/28/17 17:56 Urine Ketones Trace mg/dL (NEGATIVE) 12/28/17 17:56 Urine Blood Negative (NEGATIVE) 12/28/17 17:56 Urine Nitrate Negative (NEGATIVE) 12/28/17 17:56 Urine Bilirubin Negative (NEGATIVE) 12/28/17 17:56 Urine Urobilinogen 0.2-1.0 mg/dL (0.2-1.0) 12/28/17 17:56 Ur Leukocyte Esterase Neg [place]/uL (Negative) 12/28/17 17:56 Urine RBC (Auto) 3 /hpf (0-3) 12/28/17 17:56 Urine Microscopic WBC 4 /hpf (0-5) 12/28/17 17:56 Ur Squamous Epith Cells 1 /hpf (0-5) 12/28/17 17:56 - Hospital Course Hospital Course: 62M w/ PMHx of PVD, HTN, DMII, gangrenous right foot s/p TMA (DOS: 08/21/17), R AKA (DOS: 10/12/17), and pancreatic/lung mass, admitted for dry gangrene to L hallux with vascular compromise, POD #2 of L hallux amputation Plan: 1) POD #1 Left hallux amputation secondary to dry gangrene - L foot X-rays; no osseous abnormality noted - Podiatry consult, Dr. Pham, patient POD #2 of left hallux amputation (DOS: 01/11/18) - ID consulted, Dr. Powers, reccs appreciated - L CTA; Essentially unremarkable CT angiogram of the abdominal aorta and pelvic arteries. There is mild calcific throughout without significant stenosis. - F/U Vascular surgery. Per Dr. Hightower: severe left distal sfa/pop disease. SFA to popliteal opened up, states patient will do well with hallux amputation 2) Pancreatic/ lung mass on CT - F/U as outpatient Patient was found to have dry gangrene of his L hallux upon admission. During his hospital course, he underwent a vascular procedure with Dr. Hightower, as well as a L hallux amputation with Dr. Pham. On day of discharge, patient afebrile with vital signs stable. Patient evaluated by physical therapy. Chart reviewed, patient stable for discharge home. Patient to follow up next Thursday in the podiatry clinic with Dr. Pham. Additionally, discussed with patient the importance of following up as an outpatient for his lung/pancreatic mass. - Date & Time of H&P Date of H&P: 01/13/18 Time of H&P: 11:41 Discharge Exam - Head Exam Head Exam: ATRAUMATIC, NORMOCEPHALIC - Eye Exam Eye Exam: Normal appearance - Respiratory Exam Respiratory Exam: Clear to PA & Lateral, NORMAL BREATHING PATTERN - Cardiovascular Exam Cardiovascular Exam: REGULAR RHYTHM - GI/Abdominal Exam GI & Abdominal Exam: Normal Bowel Sounds - Extremities Exam Additional comments: Dressing to L lower extremity C/D/I. Right AKA - Neurological Exam Neurological exam: Alert, Oriented x3 - Psychiatric Exam Psychiatric exam: Normal Affect, Normal Mood - Skin Skin Exam: Warm Discharge Plan - Follow Up Plan Condition: FAIR Disposition: HOME/ ROUTINE Instructions: Amputation of the Foot or Toe (DC), Foot Care for Diabetics, Necrotizing Fasciitis (DC), Necrotizing Fasciitis (GEN) Additional Instructions: follow up with primary MD and podiatry clinic 1 week Referrals: [facility] [Outside] Jose Marcano MD [Staff Provider] - Dandre Pham DPM [Staff Provider] -
--- NOTE | 2018-01-13 12:49 | CP.PCM.PN ---
Subjective - Date & Time of Evaluation Date of Evaluation: 01/13/18 Time of Evaluation: 09:00 - Subjective Subjective: citrobacter from wound on IV rx cont rx post op Objective - Vital Signs/Intake and Output Vital Signs (last 24 hours): Temp Pulse Resp BP Pulse Ox 98.1 F 90 20 138/71 98 01/13/18 08:07 01/13/18 08:48 01/13/18 08:07 01/13/18 08:48 01/13/18 08:07 - Medications Medications: Current Medications Acetaminophen (Tylenol 325mg Tab) 650 mg PO Q6 PRN PRN Reason: Fever >100.4 F Acetaminophen (Tylenol 325mg Tab) 650 mg PO Q6 PRN PRN Reason: Pain, Mild (1-3) Last Admin: 01/03/18 23:34 Dose: 650 mg Acetaminophen (Tylenol 325mg Tab) 650 mg PO Q4 PRN PRN Reason: Pain, Mild (1-3) Aspirin (Aspirin Chewable) 81 mg PO DAILY [facility] Last Admin: 01/13/18 08:45 Dose: 81 mg Atorvastatin Calcium (Lipitor) 40 mg PO DAILY [facility] Last Admin: 01/13/18 08:50 Dose: 40 mg Carvedilol (Coreg) 25 mg PO Q12 [facility] Last Admin: 01/13/18 08:45 Dose: 25 mg Cilostazol (Pletal) 100 mg PO BID [facility] Last Admin: 01/13/18 08:50 Dose: 100 mg Clopidogrel Bisulfate (Plavix) 75 mg PO DAILY [facility] Last Admin: 01/13/18 08:49 Dose: 75 mg Dextrose (Dextrose 50% Inj) 0 ml IV STAT PRN; Protocol PRN Reason: Hypoglycemia Protocol Dextrose (Glutose 15) 0 gm PO ONCE PRN; Protocol PRN Reason: Hypoglycemia Protocol Enoxaparin Sodium (Lovenox) 40 mg SC DAILY [facility]; Protocol Last Admin: 01/13/18 08:50 Dose: 40 mg Ferrous Sulfate (Feosol) 325 mg PO BID [facility] Last Admin: 01/13/18 08:48 Dose: 325 mg Gabapentin (Neurontin) 300 mg PO HS [facility] Last Admin: 01/12/18 22:48 Dose: 300 mg Glucagon (Glucagen Diagnostic Kit) 0 mg IM STAT PRN; Protocol PRN Reason: Hypoglycemia Protocol Ibuprofen (Motrin Tab) 600 mg PO Q6 PRN PRN Reason: Pain, moderate (4-7) Last Admin: 01/13/18 03:06 Dose: 600 mg Insulin Detemir (Levemir) 20 units SC [facility] Last Admin: 01/13/18 08:49 Dose: 20 u Insulin Human Lispro (Humalog) 0 units SC [facility]; Protocol Last Admin: 01/13/18 12:40 Dose: 3 units Ketorolac Tromethamine (Toradol) 15 mg IVP Q6 PRN PRN Reason: Pain, moderate (4-7) Last Admin: 01/13/18 03:52 Dose: 15 mg Ketorolac Tromethamine (Toradol) 10 mg PO Q4 [facility] Last Admin: 01/13/18 08:50 Dose: Not Given Losartan Potassium (Cozaar) 50 mg PO DAILY [facility] Last Admin: 01/13/18 08:48 Dose: 50 mg Mupirocin (Bactroban Ointment) 1 applic TOP BID [facility] Oxycodone/Acetaminophen (Percocet 5/325 Mg Tab) 1 tab PO Q4 PRN PRN Reason: Pain, moderate (4-7) Stop: 01/14/18 11:10 Oxycodone/Acetaminophen (Percocet 5/325 Mg Tab) 2 tab PO Q6 PRN PRN Reason: Pain, severe (8-10) Stop: 01/15/18 13:05 - Labs Labs: 01/12/18 06:00 01/12/18 06:00 PT 13.0 Seconds (9.8-13.1) 01/11/18 05:45 INR 1.1 01/11/18 05:45 APTT 40.9 Seconds (25.6-37.1) H 01/05/18 12:39 - Constitutional Appears: Non-toxic, Chronically Ill - Head Exam Head Exam: NORMOCEPHALIC - Eye Exam Eye Exam: absent: Scleral icterus - ENT Exam ENT Exam: Mucous Membranes Dry - Respiratory Exam Respiratory Exam: Decreased Breath Sounds - Cardiovascular Exam Cardiovascular Exam: REGULAR RHYTHM - GI/Abdominal Exam GI & Abdominal Exam: Distended Assessment and Plan (1) Gangrene of foot Status: Acute (2) Pancreatic mass Status: Acute (3) S/P AKA (above knee amputation) unilateral Status: Acute (4) Diabetes mellitus type 2 in nonobese Status: Chronic (5) Pancreatic mass Status: Chronic
[2018-01-13 17:45] VITALS: BP 132/74; RESP 19; TEMP 98
--- NOTE | 2018-01-13 22:47 | CP.PCM.PN ---
Subjective - Date & Time of Evaluation Date of Evaluation: 01/13/18 Time of Evaluation: 12:00 - Subjective Subjective: pt feeling fine post atherectomy/OFFICE TECHNOLOGY PROFESSOR of left SFA Objective - Vital Signs/Intake and Output Vital Signs (last 24 hours): Temp Pulse Resp BP Pulse Ox 98.0 F 90 19 132/74 98 01/13/18 16:30 01/13/18 16:30 01/13/18 16:30 01/13/18 16:30 01/13/18 16:30 - Labs Labs: 01/12/18 06:00 01/12/18 06:00 PT 13.0 Seconds (9.8-13.1) 01/11/18 05:45 INR 1.1 01/11/18 05:45 APTT 40.9 Seconds (25.6-37.1) H 01/05/18 12:39 - Constitutional Appears: Well - Head Exam Head Exam: ATRAUMATIC, NORMAL INSPECTION, NORMOCEPHALIC - Eye Exam Eye Exam: EOMI, Normal appearance, PERRL Pupil Exam: NORMAL ACCOMODATION, PERRL - ENT Exam ENT Exam: Mucous Membranes Moist, Normal Exam - Neck Exam Neck Exam: Full ROM, Normal Inspection. absent: Lymphadenopathy - Respiratory Exam Respiratory Exam: Clear to Ausculation Bilateral, NORMAL BREATHING PATTERN - Cardiovascular Exam Cardiovascular Exam: REGULAR RHYTHM, +S1, +S2. absent: Murmur - GI/Abdominal Exam GI & Abdominal Exam: Soft, Normal Bowel Sounds. absent: Tenderness - Extremities Exam Extremities Exam: Full ROM, Normal Capillary Refill, Normal Inspection. absent: Joint Swelling, Pedal Edema - Back Exam Back Exam: NORMAL INSPECTION - Neurological Exam Neurological Exam: Alert, Awake, CN II-XII Intact, Normal Gait, Oriented x3 - Psychiatric Exam Psychiatric exam: Normal Affect, Normal Mood - Skin Skin Exam: Dry, Intact, Normal Color, Warm Assessment and Plan (1) Gangrene of foot Assessment & Plan: s/p OFFICE TECHNOLOGY PROFESSOR/atherectomy of left sfa cont dapt cont statins cont bb Status: Acute (2) Gangrene due to arterial insufficiency Status: Acute (3) Hypertension Status: Acute
== END 2018-01-13 17:50 | disposition home or self-care (01) | DRG 181 ==
LOC: H.ER 14:17 → H.ERHOLD 17:04 → H.MEDSURG1 18:34
PROVIDERS: ADMIT Internal Medicine; ATTEND Internal Medicine
PROC: 047L3D1 Dilation of Left Femoral Artery with Intraluminal Device, using Drug-Coated Balloon, Percutaneous Approach (ICD-10-PCS; 2018-01-06)
PROC: 0Y6Q0Z0 Detachment at Left 1st Toe, Complete, Open Approach (ICD-10-PCS; principal; 2018-01-11 09:30)
DX: E11.52 Type 2 diabetes mellitus with diabetic peripheral angiopathy with gangrene (principal); I96 Gangrene, not elsewhere classified; I77.1 Stricture of artery; E11.649 Type 2 diabetes mellitus with hypoglycemia without coma; E11.65 Type 2 diabetes mellitus with hyperglycemia; K86.89 Other specified diseases of pancreas; I10 Essential (primary) hypertension; D64.9 Anemia, unspecified; E78.00 Pure hypercholesterolemia, unspecified; F10.10 Alcohol abuse, uncomplicated; Z79.4 Long term (current) use of insulin; Z91.14 Patient's other noncompliance with medication regimen; Z91.19 Patient's noncompliance with other medical treatment and regimen; Z89.611 Acquired absence of right leg above knee; F17.200 Nicotine dependence, unspecified, uncomplicated; Z87.01 Personal history of pneumonia (recurrent)

== ENCOUNTER 2018-02-26 13:05 | Emergency (ER) | payer SELFPAY ==
[2018-02-26 13:06] VITALS: BMI 22.1
[2018-02-26 13:10] VITALS: TEMP 96.4
[2018-02-26] MEDS ORDERED: Sodium Chloride 0.9% 1,000 ML IV STA (13:23)
--- NOTE | 2018-02-26 14:00 | ED PDOC ---
Hyperglycemia/Hypoglycemia Time Seen by Provider: 02/26/18 13:23 Chief Complaint (Nursing): High Blood Sugar Chief Complaint (Provider): High Blood Sugar History Per: Patient History/Exam Limitations: no limitations Associated Infectious Symptoms: Other (Weight loss). denies: Nausea, Vomiting, Diarrhea : The patient does not have any of the infectious symptoms listed except for those marked. Additional Complaint(s): 62 y/o male presents to ER for evaluation of hyperglycemia. Patient reports he was seen today at the [facility] and was informed that his blood sugar level is in 400 range and advised to come to the ER to check that he is not in DKA state. He complains of thirstiness and peeing a lot and reports losing about 10 lbs. Patient reports he takes metformin twice a day and some blood pressure medicine. He denies any allergies, fever, chills, nausea, vomiting or diarrhea. Patient has a scar on his abdomen that he states he doesn't know what it was for. PMD: [facility] Past Medical History Reviewed: Historical Data, Nursing Documentation, Vital Signs Vital Signs: Last Vital Signs Temp 96.4 F L 02/26/18 13:09 Pulse 95 H 02/26/18 13:09 Resp 17 02/26/18 13:09 BP 130/77 02/26/18 13:09 Pulse Ox 100 02/26/18 13:09 - Medical History PMH: Anemia, Diabetes, Gall Bladder Disease, HTN, Hypercholesterolemia, Pneumonia Denies: Fractures, HIV, Chronic Kidney Disease - Surgical History Surgical History: Cholecystectomy Other surgeries: Ampituated toes - Family History Family History: States: Unknown Family Hx - Home Medications Home Medications: Ambulatory Orders Medication Instructions Recorded Ammonium Lactate 12% [Lac-Hydrin 1 applic TOP TID #1 bottle 10/26/17 12% Lotion (225 g)] Atorvastatin [Lipitor] 40 mg PO DAILY #30 tab 10/26/17 Carvedilol [Coreg] 25 mg PO Q12 30 Days #60 tab 10/26/17 Cilostazol [Pletal] 100 mg PO BID #60 tab 10/26/17 Gabapentin [Neurontin] 300 mg PO HS #30 cap 10/26/17 Losartan [Cozaar] 50 mg PO DAILY #30 tab 10/26/17 Ticagrelor [Brilinta] 90 mg PO BID #60 tab 10/26/17 metFORMIN [glucOPHAGE] 850 mg PO BID #60 tab 10/26/17 Ciprofloxacin [Cipro] 500 mg PO BID 7 Days tab 01/13/18 oxyCODONE/Acetaminophen [Percocet 1 tab PO Q4 PRN #30 tab 01/13/18 5/325 mg Tab] - Allergies Allergies/Adverse Reactions: Allergies Allergy/AdvReac Type Severity Reaction Status Date / Time garlic Allergy Mild RASH Verified 02/26/18 13:10 Review of Systems ROS Statement: Except As Marked, All Systems Reviewed And Found Negative Constitutional: Positive for: Weight loss, Other (High blood sugar level. Thirstiness.). Negative for: Fever, Chills Gastrointestinal: Negative for: Nausea, Vomiting, Diarrhea Physical Exam - Reviewed Nursing Documentation Reviewed: Yes Vital Signs Reviewed: Yes - Physical Exam Appears: Positive for: Non-toxic, No Acute Distress Head Exam: Positive for: ATRAUMATIC, NORMOCEPHALIC Skin: Positive for: Normal Color, Warm, Dry ENT: Positive for: Other (Dry mucus membrane) Neck: Positive for: Normal, Painless ROM, Supple Cardiovascular/Chest: Positive for: Regular Rate, Rhythm. Negative for: Murmur Respiratory: Positive for: Normal Breath Sounds. Negative for: Wheezing Gastrointestinal/Abdominal: Positive for: Normal Exam, Soft, Other (Midline surgical scar close to umbilicus). Negative for: Tenderness, Distended, Guarding, Rebound Extremity: Positive for: Normal ROM, Other (Foot is in bandage) Neurologic/Psych: Positive for: Alert, Oriented (x3) - Laboratory Results Result Diagrams: 02/26/18 14:20 02/26/18 14:20 - ECG O2 Sat by Pulse Oximetry: 100 (RA) Pulse Ox Interpretation: Normal Medical Decision Making Medical Decision Making: Time: 1323 Initial Impression: Differential includes but not limited to uncontrolled diabetes and dehydration. Initial Plan: --VBG Shock Panel --EKG --CMP --Lipase --CBC --Urinalysis Scribe Attestation: Documented by Vidya Keyes, acting as a scribe for Randee Hicks MD. Provider Scribe Attestation: All medical record entries made by the Scribe were at my direction and personally dictated by me. I have reviewed the chart and agree that the record accurately reflects my personal performance of the history, physical exam, medical decision making, and the department course for this patient. I have also personally directed, reviewed, and agree with the discharge instructions and disposition. Explained to patient that he is dehydrated and that his sugar is dangerously high. Offered admission for hydration. Patient declines. He appears to have full understanding of his situation. Per discussion with clinic MD and confirmed by patient, med changes have been made and is awaiting him at the local pharmacy. Disposition - Clinical Impression Clinical Impression: Hyperglycemia, Dehydration - Disposition Disposition: Against Medical Advice Disposition Time: 14:56 Condition: FAIR Instructions: Hyperglycemia, Adult, Leaving Against Medical Advice Forms: [employer] ([place]) - POA Present On Arrival: None
[2018-02-26 14:23] LABS: VENOUS BLOOD GAS BASE EXCESS -4.4 mmol/L (0.0-2.0); VENOUS BLOOD GAS PCO2 50 mmHg (40-60); VENOUS BLOOD GAS PO2 31 mm/Hg (30-55); VENOUS BLOOD PH 7.27 (7.32-7.43)
[2018-02-26 14:27] VITALS: BP 149/72
[2018-02-26 14:36] LABS: BASO # 0.1 K/uL (0.0-0.2); BASO % 1.4 % (0.0-2.0); EOS # 0.6 K/uL (0.0-0.7); EOS % 6.7 % (0.0-4.0); HEMOGLOBIN 13.7 g/dL (12.0-18.0); LYMPH # 2.4 K/uL (1.0-4.3); LYMPH % 26.3 % (20.0-40.0); MEAN CELL VOLUME 85.5 fl (80.0-94.0); MEAN CORPUSCULAR HEMOGLOBIN 28.7 pg (27.0-31.0); MEAN CORPUSCULAR HGB CONC 33.6 g/dL (33.0-37.0); MONO # 0.6 K/uL (0.0-0.8); MONO % 6.9 % (0.0-10.0); NEUT # 5.4 K/uL (1.8-7.0); NEUT % 58.7 % (50.0-75.0); NRBC % 0.2 % (0.0-0.0); RBC 4.78 Mil/uL (4.40-5.90); RED CELL DISTRIBUTION WIDTH 14.2 % (11.5-14.5); WHITE BLOOD COUNT 9.2 K/uL (4.8-10.8)
[2018-02-26 14:45] LABS: ALB/GLOB RATIO 1.1 (1.0-2.1); ALT/SGPT 25 U/L (21-72); AST/SGOT 26 U/L (17-59); BLOOD UREA NITROGEN 20 mg/dl (9-20); CALCIUM 9.7 mg/dL (8.4-10.2); GFR NON-AFRICAN AMERICAN > 60; LIPASE 207 U/L (23-300)
[2018-02-26 15:11] LABS: SQUAMOUS EPITHIAL < 1 /hpf (0-5); URINE BILIRUBIN NEGATIVE (NEGATIVE); URINE BLOOD NEGATIVE (NEGATIVE); URINE CLARITY CLEAR (Clear); URINE COLOR YELLOW (YELLOW); URINE GLUCOSE (UA) >=500 mg/dL (NEGATIVE); URINE LEUKOCYTE ESTERASE NEG Leu/uL (Negative); URINE PROTEIN NEGATIVE (NEGATIVE); URINE UROBILINOGEN 0.2-1.0 mg/dL (0.2-1.0)
[2018-02-26 16:06] VITALS: PULSE 78; RESP 18; O2SAT 98
--- NOTE | 2018-02-27 22:09 | CARD ---
APPROVED REPORT Date of service: 02/26/2018 EKG Measurement Heart [id number] <Conclusion> Normal sinus rhythm Antererior infarct, age undetermined Abnormal ECG
== END 2018-02-26 14:57 | disposition left against medical advice (07) ==
LOC: H.ER 13:05
DX: E11.65 Type 2 diabetes mellitus with hyperglycemia (principal); E86.0 Dehydration; I10 Essential (primary) hypertension; Z79.84 Long term (current) use of oral hypoglycemic drugs; E78.00 Pure hypercholesterolemia, unspecified
CPT/HCPCS: 80053; 81003; 82803; 82948; 83690; 85025; 93005; 96360; 99285; J7030

== ENCOUNTER 2018-04-01 20:52 | Inpatient (IN) | payer MEDICAID ==
[2018-04-01 20:52] VITALS: BMI 22.1
[2018-04-01] MEDS ORDERED: Sodium Chloride 0.9% 1,000 ML IV STA (21:20)
[2018-04-01] MEDS ORDERED: Morphine 4 MG/ML VIAL IVP ONE (21:23)
[2018-04-01] MEDS ORDERED: Insulin Regular 100 units/ml IV ONE (21:25)
[2018-04-01] MEDS ORDERED: Pantoprazole 40 MG in Sodium Chloride 0.9% 100 ML IV SCH (21:30)
--- NOTE | 2018-04-01 21:49 | ED PDOC ---
HPI: Abdomen Time Seen by Provider: 04/01/18 21:03 Chief Complaint (Nursing): Abdominal Pain Chief Complaint (Provider): Abdominal Pain History Per: Patient History/Exam Limitations: no limitations Onset/Duration Of Symptoms: Days (x3) Current Symptoms Are (Timing): Still Present Associated Symptoms: Nausea, Vomiting. denies: Diarrhea Additional Complaint(s): 62 year old male, with a history of HTN, peripheral vascular disease, right above the knee amputation, possible cholecystectomy, abdominal procedure, left wrist surgery, and diabetes, presents to the ED complaining of diffuse abdominal pain and multiple episodes of nausea and vomiting since Thursday after eating sardines. Patient reports nonbloody but dark colored vomit. Denies diarrhea. PMD: none Past Medical History Reviewed: Historical Data, Nursing Documentation, Vital Signs Vital Signs: Last Vital Signs Temp 98.2 F 04/01/18 20:58 Pulse 129 H 04/01/18 20:58 Resp 18 04/01/18 20:58 BP 128/78 04/01/18 20:58 Pulse Ox 100 04/01/18 20:58 - Medical History PMH: Anemia, Diabetes, Gall Bladder Disease, HTN, Hypercholesterolemia, Pneumonia Denies: Fractures, HIV, Chronic Kidney Disease Other PMH: Peripheral vascular disease - Surgical History Surgical History: Cholecystectomy Other surgeries: Right above knee amputation, abdominal procedure, left wrist surgery - Family History Family History: States: Unknown Family Hx - Home Medications Home Medications: Ambulatory Orders Medication Instructions Recorded RX: Ammonium Lactate 12% 1 applic TOP TID #1 bottle 10/26/17 [Lac-Hydrin 12% Lotion (225 g)] RX: Atorvastatin [Lipitor] 40 mg PO DAILY #30 tab 10/26/17 RX: Carvedilol [Coreg] 25 mg PO Q12 30 Days #60 tab 10/26/17 RX: Cilostazol [Pletal] 100 mg PO BID #60 tab 10/26/17 RX: Gabapentin [Neurontin] 300 mg PO HS #30 cap 10/26/17 RX: Losartan [Cozaar] 50 mg PO DAILY #30 tab 10/26/17 RX: Ticagrelor [Brilinta] 90 mg PO BID #60 tab 10/26/17 RX: metFORMIN [glucOPHAGE] 850 mg PO BID #60 tab 10/26/17 oxyCODONE/Acetaminophen [Percocet 1 tab PO Q4 PRN #30 tab 01/13/18 5/325 mg Tab] - Allergies Allergies/Adverse Reactions: Allergies Allergy/AdvReac Type Severity Reaction Status Date / Time garlic Allergy Mild RASH Verified 02/26/18 13:10 Review of Systems ROS Statement: Except As Marked, All Systems Reviewed And Found Negative Gastrointestinal: Positive for: Nausea, Vomiting, Abdominal Pain. Negative for: Diarrhea Physical Exam - Reviewed Nursing Documentation Reviewed: Yes Vital Signs Reviewed: Yes - Physical Exam Appears: Positive for: Non-toxic, No Acute Distress Head Exam: Positive for: ATRAUMATIC, NORMOCEPHALIC Skin: Positive for: Pallor Eye Exam: Positive for: Normal appearance ENT: Positive for: Other (Mucous membranes dry) Neck: Positive for: Normal, Painless ROM Cardiovascular/Chest: Positive for: Regular Rate, Rhythm Respiratory: Positive for: Normal Breath Sounds. Negative for: Wheezing, Respiratory Distress Gastrointestinal/Abdominal: Positive for: Tenderness (diffuse) Extremity: Positive for: Other (right above the knee amputation) Neurologic/Psych: Positive for: Alert, Oriented. Negative for: Motor/Sensory Deficits - Laboratory Results Result Diagrams: 04/01/18 21:53 04/01/18 21:53 - ECG O2 Sat by Pulse Oximetry: 100 (RA) Pulse Ox Interpretation: Normal Medical Decision Making Medical Decision Making: Initial Impression: 62 y/o male with diffuse abdominal pain and vomiting Initial Plan: --ABO/RH type stat --Type and screen stat --CT abd/pelvis --ECG --Alcohol serum stat --CMP --Lactic acid stat --Lipase stat --Magnesium stat --ED urine dipstick --CBC --PTT --Prothrombin time --Insulin 6 units IV --Morphine 4mg IV --Sodium chloride 1000mL IV --Protonix 80mg IV --Zofran 4mg IV 00:19 CT Abdomen/Pelvis FINDINGS: LUNG BASES: There is linear scarring or atelectasis near the lung bases. LIVER: The portal vein is dilated compatible with portal hypertension. This measures up to 2.1 cm. GALLBLADDER AND BILE DUCTS: There is biliary air present. This was also seen on prior study dated 10/01/2017. PANCREAS: The pancreas demonstrates extensive low density change with calcifications and dilatation of the pancreatic duct suggesting chronic calcific pancreatitis. The pancreatic duct changes caliber in the region of the pancreatic head. The possibility of underlying pancreatic mass is not excluded. If indicated, this could be further evaluated with MRCP or ERCP. SPLEEN: Unremarkable. ADRENAL GLANDS: Unremarkable. KIDNEYS, URETERS, AND BLADDER: The kidneys appear within normal limits. There is no hydronephrosis or hydroureter. No urinary calculi are seen. STOMACH AND BOWEL: There are numerous dilated fluid-filled small bowel loops compatible with high- grade small bowel obstruction. There appears to be a relatively distal transition zone with decompressed loops in the right lower quadrant. There are postsurgical changes to a bowel loop in the midabdomen. Please correlate with clinical and procedural history. There is a questionable small amount of pneumoperitoneum versus gas within decompressed colon. Please correlate clinically. If indicated, short-term followup additional imaging such as a KUB can be obtained. These findings are being telephoned to the referring clinician's at the time of this interpretation. APPENDIX: No evidence of acute appendicitis on CT examination. PERITONEUM: No free fluid. No free air. LYMPH NODES: No lymphadenopathy is evident. REPRODUCTIVE: Unremarkable as visualized. VASCULATURE: Abdominal aorta and branches are densely atherosclerotic without aneurysm. BONES: There are moderate to severe multilevel degenerative spine changes. IMPRESSION: 1. There are numerous dilated fluid-filled small bowel loops compatible with high-grade small bowel obstruction. There appears to be a relatively distal transition zone with decompressed loops in the right lower quadrant. There are postsurgical changes to a bowel loop in the midabdomen. Please correlate with clinical and procedural history. There is a questionable small amount of pneumoperitoneum versus gas within decompressed colon. Please correlate clinically. If indicated, short-term followup additional imaging such as a KUB can be obtained. These findings are being telephoned to the referring clinician's at the time of this interpretation. 2. The pancreas demonstrates extensive low density change with calcifications and dilatation of the pancreatic duct suggesting chronic calcific pancreatitis. The pancreatic duct changes caliber in the region of the pancreatic head. The possibility of underlying pancreatic mass is not excluded. If indicated, this could be further evaluated with MRCP or ERCP. 3. Additional and incidental findings as described, please see comments. 00:25 Case discussed with neurosurgical nurse practitioner, Dr. Smith as well as Dr. Ling. Patient will be admitted as inpatient for a small bowel obstruction. Scribe Attestation: Documented by Karlos Abarca acting as a scribe for Elkin Ontiveros MD. Provider Scribe Attestation: All medical record entries made by the Scribe were at my direction and personally dictated by me. I have reviewed the chart and agree that the record accurately reflects my personal performance of the history, physical exam, medical decision making, and the department course for this patient. I have also personally directed, reviewed, and agree with the discharge instructions and disposition. Disposition - Clinical Impression Clinical Impression: Abdominal pain, SBO (small bowel obstruction) - Patient ED Disposition Is Patient to be Admitted: Yes Discussed With : Randa Ling - Disposition Disposition Time: 00:25 Condition: FAIR - Pt Status Changed To: Hospital Disposition Of: Inpatient - Admit Certification Admit to Inpatient:: After my assessment, the patient will require hospitalization for at least two midnights. This is because of the severity of symptoms shown, intensity of services needed, and/or the medical risk in this patient being treated as an outpatient.
[2018-04-01 22:00] LABS: BASO % 0.5 % (0.0-2.0); EOS % 0.2 % (0.0-4.0); HEMOGLOBIN 12.8 g/dL (12.0-18.0); LYMPH # 0.9 K/uL (1.0-4.3); LYMPH % 9.8 % (20.0-40.0); MEAN CELL VOLUME 84.4 fl (80.0-94.0); MEAN CORPUSCULAR HEMOGLOBIN 28.7 pg (27.0-31.0); MEAN CORPUSCULAR HGB CONC 33.9 g/dL (33.0-37.0); MEAN PLATELET VOLUME 10.1 fl (7.2-11.7); MONO # 1.1 K/uL (0.0-0.8); MONO % 12.3 % (0.0-10.0); NEUT % 77.2 % (50.0-75.0); NRBC % 0.2 % (0.0-0.0); PLATELET COUNT 714 K/uL (130-400); RBC 4.48 Mil/uL (4.40-5.90); WHITE BLOOD COUNT 9.1 K/uL (4.8-10.8)
[2018-04-01 22:05] LABS: INR 1.2; PROTHROMBIN TIME 13.7 Seconds (9.8-13.1)
[2018-04-01 22:08] LABS: PARTIAL THROMBOPLASTIN TIME 32.8 Seconds (25.6-37.1)
[2018-04-01] MEDS ORDERED: Morphine 4 MG/ML VIAL ONE (22:16)
[2018-04-01] MEDS ORDERED: Insulin Regular 100 units/ml ONE (22:17)
[2018-04-01 22:37] LABS: ALB/GLOB RATIO 1.3 (1.0-2.1); ALBUMIN 4.5 g/dL (3.5-5.0); ALT/SGPT 54 U/L (21-72); AST/SGOT 51 U/L (17-59); BLOOD UREA NITROGEN 42 mg/dl (9-20); GFR NON-AFRICAN AMERICAN 56; LIPASE 41 U/L (23-300)
[2018-04-01 22:49] LABS: ANISOCYTOSIS SLIGHT; BANDS 3 % (0-2); LYMPHOCYTE 10 % (20-50); MICROCYTOSIS SLIGHT; MONOCYTE 11 % (0-10); NEUTROPHIL 76 % (42-75); PLATELET ESTIMATE SLIGHTLY INCREASED (NORMAL); POIKILOCYTOSIS SLIGHT; TOTAL CELLS COUNTED 100
[2018-04-01] MEDS ORDERED: Iohexol 300 100 ML IJ ONE (23:13)
[2018-04-01] MEDS ORDERED: Sodium Chloride 0.9% 50 ML IV ONE (23:13)
[2018-04-02] MEDS ORDERED: Morphine 4 MG/ML VIAL IVP ONE (00:29)
[2018-04-02] MEDS ORDERED: Morphine 4 MG/ML VIAL ONE (00:40)
--- NOTE | 2018-04-02 02:03 | CP.PCM.HP ---
History of Present Illness - History of Present Illness History of Present Illness: 62 yo with a history of HTN, peripheral vascular disease, uncontrolled diabetes mellitus (not in insulin as pt not agreeable), right AKA, cholecystectomy?, unknown abdominal procedure/surgery?; admitted due to SBO. Pt presented to ED complaining of diffuse abdominal pain since 2 days ago accompanied by multiple episodes of nausea and nonbloody vomiting. Rates pain 10/10 prior to getting pain medication in ED; when examined in ED rates pain 4/10. Pain constant, nonradiating, mid-abdominal. Patient states he does not know what kind of surgeries he has had in the past. States he had gallstones removed, but not gallbladder? Denies additional surgeries or knowing what they are despite having large vertical scar on mid- lower abdomen. Patient also reports that he has lost weight in the past 3 months despite eating a lot; does not know how much weigh he lost. Denies night sweats. CT abdomen done in ED prelim read showed numerous dilated fluid-filled small bowel loops compatible with SBO; postsurgical changes to bowel loop. Low density change in pancreas; possible underlying pancreatic mass. Denies fevers, shortness of breath, chest pain, dysuria, diarrhea, constipation. PMD: NHC Past MEd hx: diabetes, hypertension, peripheral vascular disease; as per eCW has had multiple visits w/ podiatry recently; does not use insulin for fear of needles Past Surg hx: unclear, as above, possible cholecystectomy; right AKA; unknown abdominal surgery? Social hx: smoker, quit 3 weeks ago as per pt; smoker for 45 yrs 1 ppd; denies alcohol/drug use Fam hx: cancer, unknown type Allergies: nkda Meds: as per eCW, last refilled meds were cliostazol, gabapentin, glimepiride, atorvastatin, losartan, metformin, carvedilo In ED: afebrile, normotensive; tachycardic CBC: no leukocytosis, elevated PLT INR 1.2 Mg 1.5 CMP: BS 401, elevated ALP, Received 6 U insulin 1L bolus 4 mg morphine 80 mg protonix [address] abd/pelvis done Surg consult placed Present on Admission - Present on Admission Any Indicators Present on Admission: Yes History of Uncontrolled Diabetes: Yes Review of Systems - Review of Systems All systems: reviewed and no additional remarkable complaints except - Constitutional Constitutional: Weight Loss - Cardiovascular Cardiovascular: absent: Chest Pain - Respiratory Respiratory: absent: Dyspnea - Gastrointestinal Gastrointestinal: Abdominal Pain, Nausea, Vomiting. absent: Constipation, Hematemesis, Loose Stools - Genitourinary Genitourinary: absent: Dysuria Past Patient History - Infectious Disease Hx of Infectious Diseases: None - Past Medical History & Family History Past Medical History?: Yes - Past Social History Smoking Status: Current Some Days Smoker Alcohol: None Drugs: Denies - CARDIAC Hx Hypercholesterolemia: Yes Hx Hypertension: Yes - PULMONARY Hx Pneumonia: Yes - NEUROLOGICAL Hx Neurological Disorder: No - HEENT Hx HEENT Problems: No - RENAL Hx Chronic Kidney Disease: No - ENDOCRINE/METABOLIC Hx Endocrine Disorders: Yes Hx Diabetes Mellitus Type 2: Yes - HEMATOLOGICAL/ONCOLOGICAL Hx Anemia: Yes Hx Human Immunodeficiency Virus (HIV): No - INTEGUMENTARY Hx Dermatological Problems: No - MUSCULOSKELETAL/RHEUMATOLOGICAL Hx Fractures: No - GASTROINTESTINAL Hx Gall Bladder Disease: Yes - GENITOURINARY/GYNECOLOGICAL Hx Genitourinary Disorders: No - PSYCHIATRIC Hx Psychophysiologic Disorder: No Hx Substance Use: No - SURGICAL HISTORY Hx Cholecystectomy: Yes - ANESTHESIA Hx Anesthesia: Yes Hx Anesthesia Reactions: No Hx Malignant Hyperthermia: No Meds Allergies/Adverse Reactions: Allergies Allergy/AdvReac Type Severity Reaction Status Date / Time garlic Allergy Mild RASH Verified 02/26/18 13:10 Physical Exam - Constitutional Appears: Cachectic, Chronically Ill - Head Exam Additional comments: bitemporal wasting - Eye Exam Eye Exam: Normal appearance - ENT Exam ENT Exam: Mucous Membranes Dry - Neck Exam Neck exam: Positive for: Full Rom - Respiratory Exam Respiratory Exam: Clear to Auscultation Bilateral, NORMAL BREATHING PATTERN. absent: Wheezes, Respiratory Distress - Cardiovascular Exam Cardiovascular Exam: REGULAR RHYTHM, +S1, +S2 - GI/Abdominal Exam GI & Abdominal Exam: Normal Bowel Sounds, Soft, Tenderness (diffuse, moderate) Additional comments: bowel sounds in all 4 quadrants; not high pitched large vertical scar on abdomen - Extremities Exam Extremities exam: Negative for: normal inspection Additional comments: Right sided AKA Left lower ext very thin, appears like muscle wasting, foot in podiatric shoe, wrapped up - Neurological Exam Neurological exam: Alert, Oriented x3 - Skin Skin Exam: Dry Results - Vital Signs Recent Vital Signs: Last Vital Signs Temp 98.2 F 04/01/18 20:58 Pulse 129 H 04/01/18 20:58 Resp 18 02/14/19 20:58 BP 128/78 04/01/18 20:58 Pulse Ox 100 04/02/18 00:43 - Labs Result Diagrams: 04/01/18 21:53 04/01/18 21:53 Labs: Laboratory Results - last 24 hr 04/01/18 04/01/18 04/01/18 21:00 21:53 21:53 WBC 9.1 RBC 4.48 Hgb 12.8 Hct 37.8 MCV 84.4 MCH 28.7 MCHC 33.9 RDW 17.0 H Plt Count 714 H MPV 10.1 Neut % (Auto) 77.2 H Lymph % (Auto) 9.8 L [place] % (Auto) 12.3 H Eos % (Auto) 0.2 Baso % (Auto) 0.5 Neut # (Auto) 7.0 Lymph # (Auto) 0.9 L [place] # (Auto) 1.1 H Eos # (Auto) 0.0 Baso # (Auto) 0.0 Neutrophils % (Manual) 76 H Band Neutrophils % 3 H Lymphocytes % (Manual) 10 L Monocytes % (Manual) 11 H Platelet Estimate Slightly increased H Poikilocytosis (manual Slight Anisocytosis (manual) Slight Microcytosis (manual) Slight PT INR APTT Sodium 136 Potassium 3.8 Chloride 87 L Carbon Dioxide 26 Anion Gap 27 H BUN 42 H Creatinine 1.3 Est GFR ( Amer) > 60 Est GFR (Non-Af Amer) 56 POC Glucose (mg/dL) 379 H Random Glucose 401 H* Lactic Acid Calcium 10.0 Magnesium 1.5 L Total Bilirubin 1.6 H AST 51 ALT 54 Alkaline Phosphatase 229 H D Total Protein 7.9 Albumin 4.5 Globulin 3.4 Albumin/Globulin Ratio 1.3 Lipase 41 Alcohol, Quantitative < 10 Blood Type Antibody Screen BBK History Checked 04/01/18 04/01/18 04/01/18 21:53 21:53 21:53 WBC RBC Hgb Hct MCV MCH MCHC RDW Plt Count MPV Neut % (Auto) Lymph % (Auto) [place] % (Auto) Eos % (Auto) Baso % (Auto) Neut # (Auto) Lymph # (Auto) [place] # (Auto) Eos # (Auto) Baso # (Auto) Neutrophils % (Manual) Band Neutrophils % Lymphocytes % (Manual) Monocytes % (Manual) Platelet Estimate Poikilocytosis (manual Anisocytosis (manual) Microcytosis (manual) PT 13.7 H INR 1.2 APTT 32.8 Sodium Potassium Chloride Carbon Dioxide Anion Gap BUN Creatinine Est GFR ( Amer) Est GFR (Non-Af Amer) POC Glucose (mg/dL) Random Glucose Lactic Acid 2.1 Calcium Magnesium Total Bilirubin AST ALT Alkaline Phosphatase Total Protein Albumin Globulin Albumin/Globulin Ratio Lipase Alcohol, Quantitative Blood Type A POSITIVE Antibody Screen Negative BBK History Checked Patient has bt Assessment & Plan - Assessment and Plan (Free Text) Assessment: 62 yo with a history of HTN, peripheral vascular disease, uncontrolled diabetes mellitus (not in insulin as pt not agreeable), right AKA, cholecystectomy?, unk nown abdominal procedure/surgery?, admitted due to partial SBO. Plan: Small Bowel Obstruction - Surgical consult - NPO - 1L bolus NS, then 100 ml/hr - Zofran PRN - Pain control w/ morphine - F/u offical CT report Cachexia - Evident on physical exam - Pt reports significant weight loss in past 3 months - Pancreatic mass on CT? F/u official report; consider heme/onc vs GI? Uncontrolled Diabetes Mellitus, type 2 - Insulin coverage scale - Accuchek Q6 hrs - As per outpt records; not agreeable to insulin, poor adherence to meds - Resume home meds when not NPO Hypo Mg - Replete - CMP in am Hypertension - Chronic, not elevated in ED - Re-eval home meds when not NPO PVD - Chronic - C/w Cilostazol, gabapentin when not NPO Diet - NPO DVT prophylaxis - SCD for now Pt seen/discussed w/ Dr. Ling.
[2018-04-02] MEDS ORDERED: Magnesium Sulfate 2 gm/50 ml 2 GM/50 ML BAG IVPB ONE (02:33)
[2018-04-02] MEDS ORDERED: Morphine 4 MG/ML VIAL IVP PRN ×2 (02:37→03:34)
[2018-04-02 03:14] LABS: VENOUS BLOOD GAS BASE EXCESS 6.4 mmol/L (0.0-2.0); VENOUS BLOOD GAS PCO2 58 mmHg (40-60); VENOUS BLOOD GAS PO2 24 mm/Hg (30-55); VENOUS BLOOD PH 7.37 (7.32-7.43)
--- NOTE | 2018-04-02 03:14 | CP.PCM.CON ---
History of Present Illness - History of Present Illness History of Present Illness: 62M with PMHx of HTN, DM, PAD, presents to [facility] ED with complaints of abdominal pain. Patient states abdominal pain began approximately two days ago. He states abdominal pain is generalized. Reports he has had similar kind of pain before but it usually resolves with Judy seltzer, this time it didn't. Patient reports having normal bowel movements. States last time he passed flatus was yesterday. Patient also reports he has lost about 20+ plus pounds despite no changes in food intake/appetite. Reports nausea and non bloody emesis over past 2 days. Denies chest pain, shortness of breath, dysuria. PMH: HTN, DM, PAD, pancreati mass, lung mass PSH: cholecystectomy, R AKA, laparotomy All: NKDA Past Patient History - Infectious Disease Hx of Infectious Diseases: None - Past Medical History & Family History Past Medical History?: Yes - Past Social History Smoking Status: Current Some Days Smoker - CARDIAC Hx Hypercholesterolemia: Yes Hx Hypertension: Yes - PULMONARY Hx Pneumonia: Yes - NEUROLOGICAL Hx Neurological Disorder: No - HEENT Hx HEENT Problems: No - RENAL Hx Chronic Kidney Disease: No - ENDOCRINE/METABOLIC Hx Endocrine Disorders: Yes Hx Diabetes Mellitus Type 2: Yes - HEMATOLOGICAL/ONCOLOGICAL Hx Anemia: Yes Hx Human Immunodeficiency Virus (HIV): No - INTEGUMENTARY Hx Dermatological Problems: No - MUSCULOSKELETAL/RHEUMATOLOGICAL Hx Fractures: No - GASTROINTESTINAL Hx Gall Bladder Disease: Yes - GENITOURINARY/GYNECOLOGICAL Hx Genitourinary Disorders: No - PSYCHIATRIC Hx Psychophysiologic Disorder: No Hx Substance Use: No - SURGICAL HISTORY Hx Cholecystectomy: Yes - ANESTHESIA Hx Anesthesia: Yes Hx Anesthesia Reactions: No Hx Malignant Hyperthermia: No Meds Allergies/Adverse Reactions: Allergies Allergy/AdvReac Type Severity Reaction Status Date / Time garlic Allergy Mild RASH Verified 02/26/18 13:10 - Medications Medications: Current Medications Pantoprazole Sodium 40 mg/ (Sodium Chloride) 100 mls @ 20 mls/hr IV .Q5H [facility]ILU Last Admin: 04/02/18 00:08 Dose: 20 mls/hr Sodium Chloride (Sodium Chloride 0.9%) 1,000 mls @ 100 mls/hr IV .Q10H [facility] Magnesium Sulfate (Magnesium Sulfate 2 Gm/50 Ml Water) 2 gm in 50 mls @ 50 mls/hr IVPB ONCE ONE Stop: 04/02/18 03:32 Morphine Sulfate (Morphine) 4 mg IVP Q4 PRN PRN Reason: Pain, moderate (4-7) Ondansetron HCl (Zofran Inj) 4 mg IVP Q6 PRN PRN Reason: Nausea/Vomiting Results - Vital Signs Recent Vital Signs: Last Vital Signs Temp 98.2 F 04/01/18 20:58 Pulse 129 H 04/01/18 20:58 Resp 18 04/01/18 20:58 BP 128/78 04/01/18 20:58 Pulse Ox 100 04/02/18 00:43 - Labs Result Diagrams: 04/01/18 21:53 04/01/18 21:53 Labs: Laboratory Results - last 24 hr 04/01/18 04/01/18 04/01/18 21:00 21:53 21:53 WBC 9.1 RBC 4.48 Hgb 12.8 Hct 37.8 MCV 84.4 MCH 28.7 MCHC 33.9 RDW 17.0 H Plt Count 714 H MPV 10.1 Neut % (Auto) 77.2 H Lymph % (Auto) 9.8 L [place] % (Auto) 12.3 H Eos % (Auto) 0.2 Baso % (Auto) 0.5 Neut # (Auto) 7.0 Lymph # (Auto) 0.9 L [place] # (Auto) 1.1 H Eos # (Auto) 0.0 Baso # (Auto) 0.0 Neutrophils % (Manual) 76 H Band Neutrophils % 3 H Lymphocytes % (Manual) 10 L Monocytes % (Manual) 11 H Platelet Estimate Slightly increased H Poikilocytosis (manual Slight Anisocytosis (manual) Slight Microcytosis (manual) Slight PT INR APTT Sodium 136 Potassium 3.8 Chloride 87 L Carbon Dioxide 26 Anion Gap 27 H BUN 42 H Creatinine 1.3 Est GFR ( Amer) > 60 Est GFR (Non-Af Amer) 56 POC Glucose (mg/dL) 379 H Random Glucose 401 H* Lactic Acid Calcium 10.0 Magnesium 1.5 L Total Bilirubin 1.6 H AST 51 ALT 54 Alkaline Phosphatase 229 H D Total Protein 7.9 Albumin 4.5 Globulin 3.4 Albumin/Globulin Ratio 1.3 Lipase 41 Alcohol, Quantitative < 10 Blood Type Antibody Screen BBK History Checked 04/01/18 04/01/18 04/01/18 21:53 21:53 21:53 WBC RBC Hgb Hct MCV MCH MCHC RDW Plt Count MPV Neut % (Auto) Lymph % (Auto) [place] % (Auto) Eos % (Auto) Baso % (Auto) Neut # (Auto) Lymph # (Auto) [place] # (Auto) Eos # (Auto) Baso # (Auto) Neutrophils % (Manual) Band Neutrophils % Lymphocytes % (Manual) Monocytes % (Manual) Platelet Estimate Poikilocytosis (manual Anisocytosis (manual) Microcytosis (manual) PT 13.7 H INR 1.2 APTT 32.8 Sodium Potassium Chloride Carbon Dioxide Anion Gap BUN Creatinine Est GFR ( Amer) Est GFR (Non-Af Amer) POC Glucose (mg/dL) Random Glucose Lactic Acid 2.1 Calcium Magnesium Total Bilirubin AST ALT Alkaline Phosphatase Total Protein Albumin Globulin Albumin/Globulin Ratio Lipase Alcohol, Quantitative Blood Type A POSITIVE Antibody Screen Negative BBK History Checked Patient has bt Assessment & Plan - Assessment and Plan (Free Text) Assessment: 62M with high grade SBO hx of pancreatic head(3.2. x3.1cm) and body (1.5cm) masses noted on abdominal MRI 10/03 Plan: NPO IVF Analgesic prn Anti-emetic prn NGT to LIS Strict I&O's SCDs Serial abd exams D/w Dr. Maribel Chandra PGY3
[2018-04-02] MEDS ORDERED: Magnesium Sulfate 2 gm/50 ml 2 GM/50 ML BAG ONE (03:24)
[2018-04-02] MEDS ORDERED: Insulin Lispro (humaLOG) 100 Units/ml Inj SC SCH (03:30)
[2018-04-02] MEDS: Lactated Ringer's 1,000 ML IV SCH (03:48)
[2018-04-02] MEDS: Sodium Chloride 0.9% 1,000 ML IV SCH ×2 (05:00→20:15)
[2018-04-02 06:27] LABS: BASO % 0.2 % (0.0-2.0); EOS % 0.4 % (0.0-4.0); HEMOGLOBIN 12.8 g/dL (12.0-18.0); LYMPH # 0.8 K/uL (1.0-4.3); LYMPH % 11.7 % (20.0-40.0); MEAN CELL VOLUME 86.6 fl (80.0-94.0); MEAN CORPUSCULAR HEMOGLOBIN 28.4 pg (27.0-31.0); MEAN CORPUSCULAR HGB CONC 32.8 g/dL (33.0-37.0); MEAN PLATELET VOLUME 9.7 fl (7.2-11.7); MONO # 0.6 K/uL (0.0-0.8); MONO % 8.6 % (0.0-10.0); NEUT # 5.7 K/uL (1.8-7.0); NEUT % 79.1 % (50.0-75.0); NRBC % 0.1 % (0.0-0.0); RBC 4.5 Mil/uL (4.40-5.90); RED CELL DISTRIBUTION WIDTH 16.7 % (11.5-14.5); WHITE BLOOD COUNT 7.1 K/uL (4.8-10.8)
[2018-04-02 06:35] LABS: ALB/GLOB RATIO 1.1 (1.0-2.1); ALT/SGPT 47 U/L (21-72); AST/SGOT 36 U/L (17-59); BLOOD UREA NITROGEN 39 mg/dl (9-20); CALCIUM 9.3 mg/dL (8.4-10.2); GFR NON-AFRICAN AMERICAN > 60
[2018-04-02] MEDS: Insulin Lispro (humaLOG) 100 Units/ml Inj SC SCH ×3 (08:46→20:29)
[2018-04-02] MEDS ORDERED: Cilostazol 100 mg Tab UD PO SCH (09:00)
[2018-04-02] MEDS ORDERED: Gadodiamide 287 MG/ML VIAL (15ML) IV ONE ×2 (09:52→15:26)
--- NOTE | 2018-04-02 09:53 | CP.PCM.PN ---
Subjective - Date & Time of Evaluation Date of Evaluation: 04/02/18 Time of Evaluation: 09:53 Objective - Vital Signs/Intake and Output Vital Signs (last 24 hours): Temp Pulse Resp BP Pulse Ox 97.9 F 124 H 20 115/65 97 04/02/18 08:09 04/02/18 08:09 04/02/18 08:09 04/02/18 08:09 04/02/18 08:09 Intake and Output: 04/02/18 04/02/18 06:59 18:59 Output Total 27 Balance -27 - Medications Medications: Current Medications Atorvastatin Calcium (Lipitor) 40 mg PO DAILY [facility] Carvedilol (Coreg) 25 mg PO Q12 [facility] Cilostazol (Pletal) 100 mg PO BID [facility] Gabapentin (Neurontin) 300 mg PO HS [facility] Sodium Chloride (Sodium Chloride 0.9%) 1,000 mls @ 100 mls/hr IV .Q10H [facility] Last Admin: 04/02/18 05:00 Dose: Not Given Lactated Ringer's (Lactated Ringer's) 1,000 mls @ 999 mls/hr IV .Q1H1M [facility] Last Admin: 04/02/18 03:48 Dose: 999 mls/hr Insulin Human Lispro (Humalog) 0 units SC Q6H [facility]; Protocol Last Admin: 04/02/18 08:46 Dose: 3 unit Losartan Potassium (Cozaar) 50 mg PO DAILY [facility] Morphine Sulfate (Morphine) 1 mg IVP Q4 PRN PRN Reason: Pain, Mild (1-3) Morphine Sulfate (Morphine) 2 mg IVP Q4 PRN PRN Reason: Pain, moderate (4-7) Morphine Sulfate (Morphine) 4 mg IVP Q4 PRN PRN Reason: Pain, severe (8-10) Ondansetron HCl (Zofran Inj) 4 mg IVP Q6 PRN PRN Reason: Nausea/Vomiting Ticagrelor (Brilinta) 90 mg PO BID [facility] - Labs Labs: 04/02/18 05:45 04/02/18 05:45 PT 13.7 Seconds (9.8-13.1) H 04/01/18 21:53 INR 1.2 04/01/18 21:53 APTT 32.8 Seconds (25.6-37.1) 04/01/18 21:53
--- NOTE | 2018-04-02 11:21 | CT ---
Date of service: 04/01/2018 PROCEDURE: CT Abdomen and Pelvis with contrast HISTORY: abd pain COMPARISON: 01/04/2018 TECHNIQUE: Contrast dose: 90 mL Omnipaque 300 Radiation dose: Total exam DLP = 239.1 mGy-cm. This CT exam was performed using one or more of the following dose reduction techniques: Automated exposure control, adjustment of the mA and/or kV according to patient size, and/or use of iterative reconstruction technique. FINDINGS: LOWER THORAX: Linear pleural-based scar/atelectasis in both lower lobes and in the right middle lobe. No infiltrate or effusion. LIVER: Normal size and contour. Intrahepatic gas is identified in a somewhat peripheral distribution, predominantly in the left lobe of the liver. This most likely represents pneumobilia despite the peripheral distribution as there is some gas identified in the common hepatic duct as well. This is unchanged in appearance compared to 01/04/2018. This is felt unlikely to represent portal venous gas. No hepatic mass. GALLBLADDER AND BILE DUCTS: This post cholecystectomy PANCREAS: Varicoid dilatation of the pancreatic duct. Coarse pancreatic calcifications throughout the pancreas. Findings consistent with chronic pancreatitis. No pancreatic mass identified. No evidence of acute pancreatitis. SPLEEN: Unremarkable. ADRENALS: Unremarkable. No mass. KIDNEYS AND URETERS: Unremarkable. No hydronephrosis. No solid mass. VASCULATURE: No aortic aneurysm. There is extensive atherosclerotic calcification of the aorta and iliac vessels. 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 This is unchanged when compared to 01/04/2018. BOWEL: Numerous dilated loops of small bowel, fluid-filled. There are numerous decompressed loops of distal ileum. There is mild circumferential mural thickening of some loops of ileum in the lateral right upper pelvis. Nonspecific. There is no general enteritis noted. Given the caliber change, there is likely mechanical bowel obstruction. Eight point of obstruction is not clearly identified on the basis of this examination. There is evidence of prior small bowel surgery with anastomosis in the central lower abdomen. APPENDIX: Not identified PERITONEUM: No ascites. No evidence of pneumoperitoneum. LYMPH NODES: Unremarkable. No enlarged lymph nodes. BLADDER: Unremarkable. REPRODUCTIVE: Normal prostate BONES: No acute fracture. OTHER FINDINGS: Is generalized anasarca. Mild CT CI. IMPRESSION: Probable mechanical small-bowel obstruction. Point of obstruction is not clearly delineated on the basis of this examination. It is likely somewhere between the jejunal ileal junction and mid ileum. Intrahepatic gas most likely biliary although it has a somewhat atypical peripheral distribution. This is unchanged from 01/04/2018. No evidence of pneumatosis coli. Chronic pancreatitis. No pancreatic mass identified. Mild central intrahepatic biliary dilatation consistent with prior cholecystectomy. Question is raised regarding prior ambulatory, given the presence of intrahepatic biliary gas. Generalized anasarca. The preliminary findings for this examination were reported by [facility] at 12:19 a.m. on 04/02/2018. There is concurrence of this report with the preliminary findings.
--- NOTE | 2018-04-02 11:22 | RAD ---
Date of service: 04/02/2018 HISTORY: NGT placement COMPARISON: 03/25/2018 FINDINGS: LUNGS: No active pulmonary disease. PLEURA: No significant pleural effusion identified, no pneumothorax apparent. CARDIOVASCULAR: No aortic atherosclerotic calcification present. Normal cardiac size. No pulmonary vascular congestion. OSSEOUS STRUCTURES: No significant abnormalities. VISUALIZED UPPER ABDOMEN: Normal. OTHER FINDINGS: None. IMPRESSION: No active disease.
[2018-04-02] MEDS: Morphine 4 MG/ML VIAL IVP PRN ×2 (11:38→17:55)
--- NOTE | 2018-04-02 12:21 | CP.PCM.CON ---
History of Present Illness - History of Present Illness History of Present Illness: Psychiatry consult note CC: "I'm fine." HPI: 62 yo with a history of HTN, peripheral vascular disease, uncontrolled diabetes mellitus (not in insulin as pt not agreeable), right AKA, cholecystectomy, unknown abdominal procedure/surgery; admitted due to SBO. Patient denies acute depression/anxiety/AH/VH/SI/HI. He does not know why a psychiatric consult was called and does not believe he needs any psychiatric treatment or medications. PMD: NHC Past MEd hx: diabetes, hypertension, peripheral vascular disease; as per eCW has had multiple visits w/ podiatry recently; does not use insulin for fear of needles Past Surg hx: unclear, as above, possible cholecystectomy; right AKA; unknown abdominal surgery? Social hx: smoker, quit 3 weeks ago as per pt; smoker for 45 yrs 1 ppd; denies alcohol/drug use Fam hx: cancer, unknown type Allergies: nkda Impression: 62 yo male does not meet criteria for major depressive disorder or other acute psychiatric illness. -No acute psychiatric treatment or medications indicated Past Patient History - Infectious Disease Hx of Infectious Diseases: None - Past Medical History & Family History Past Medical History?: Yes - Past Social History Smoking Status: Current Some Days Smoker - CARDIAC Hx Hypercholesterolemia: Yes Hx Hypertension: Yes - PULMONARY Hx Pneumonia: Yes - NEUROLOGICAL Hx Neurological Disorder: No - HEENT Hx HEENT Problems: No - RENAL Hx Chronic Kidney Disease: No - ENDOCRINE/METABOLIC Hx Endocrine Disorders: Yes Hx Diabetes Mellitus Type 2: Yes - HEMATOLOGICAL/ONCOLOGICAL Hx Anemia: Yes Hx Human Immunodeficiency Virus (HIV): No - INTEGUMENTARY Hx Dermatological Problems: No - MUSCULOSKELETAL/RHEUMATOLOGICAL Hx Fractures: No - GASTROINTESTINAL Hx Gall Bladder Disease: Yes - GENITOURINARY/GYNECOLOGICAL Hx Genitourinary Disorders: No - PSYCHIATRIC Hx Psychophysiologic Disorder: No Hx Substance Use: No - SURGICAL HISTORY Hx Cholecystectomy: Yes - ANESTHESIA Hx Anesthesia: Yes Hx Anesthesia Reactions: No Hx Malignant Hyperthermia: No Meds Allergies/Adverse Reactions: Allergies Allergy/AdvReac Type Severity Reaction Status Date / Time garlic Allergy Mild RASH Verified 02/26/18 13:10 - Medications Medications: Current Medications Atorvastatin Calcium (Lipitor) 40 mg PO DAILY [facility] Carvedilol (Coreg) 25 mg PO Q12 [facility] Cilostazol (Pletal) 100 mg PO BID [facility] Gabapentin (Neurontin) 300 mg PO HS [facility] Sodium Chloride (Sodium Chloride 0.9%) 1,000 mls @ 100 mls/hr IV .Q10H [facility] Last Admin: 04/02/18 05:00 Dose: Not Given Lactated Ringer's (Lactated Ringer's) 1,000 mls @ 999 mls/hr IV .Q1H1M [facility] Last Admin: 04/02/18 03:48 Dose: 999 mls/hr Insulin Human Lispro (Humalog) 0 units SC Q6H [facility]; Protocol Last Admin: 04/02/18 08:46 Dose: 3 unit Losartan Potassium (Cozaar) 50 mg PO DAILY [facility] Morphine Sulfate (Morphine) 1 mg IVP Q4 PRN PRN Reason: Pain, Mild (1-3) Morphine Sulfate (Morphine) 2 mg IVP Q4 PRN PRN Reason: Pain, moderate (4-7) Morphine Sulfate (Morphine) 4 mg IVP Q4 PRN PRN Reason: Pain, severe (8-10) Last Admin: 04/02/18 11:38 Dose: 4 mg Ondansetron HCl (Zofran Inj) 4 mg IVP Q6 PRN PRN Reason: Nausea/Vomiting Ticagrelor (Brilinta) 90 mg PO BID [facility] Results - Vital Signs Recent Vital Signs: Last Vital Signs Temp 97.9 F 04/02/18 08:09 Pulse 124 H 04/02/18 08:09 Resp 20 04/02/18 08:09 BP 115/65 04/02/18 08:09 Pulse Ox 97 04/02/18 08:09 - Labs Result Diagrams: 04/02/18 05:45 04/02/18 05:45 Labs: Laboratory Results - last 24 hr 04/01/18 04/01/18 04/01/18 21:00 21:53 21:53 WBC 9.1 RBC 4.48 Hgb 12.8 Hct 37.8 MCV 84.4 MCH 28.7 MCHC 33.9 RDW 17.0 H Plt Count 714 H MPV 10.1 Neut % (Auto) 77.2 H Lymph % (Auto) 9.8 L [place] % (Auto) 12.3 H Eos % (Auto) 0.2 Baso % (Auto) 0.5 Neut # (Auto) 7.0 Lymph # (Auto) 0.9 L [place] # (Auto) 1.1 H Eos # (Auto) 0.0 Baso # (Auto) 0.0 Neutrophils % (Manual) 76 H Band Neutrophils % 3 H Lymphocytes % (Manual) 10 L Monocytes % (Manual) 11 H Platelet Estimate Slightly increased H Poikilocytosis (manual Slight Anisocytosis (manual) Slight Microcytosis (manual) Slight PT INR APTT pO2 VBG pH VBG pCO2 VBG HCO3 VBG Total CO2 VBG O2 Sat (Calc) VBG Base Excess VBG Potassium Glucose Lactate FiO2 Sodium 136 Potassium 3.8 Chloride 87 L Carbon Dioxide 26 Anion Gap 27 H BUN 42 H Creatinine 1.3 Est GFR ( Amer) > 60 Est GFR (Non-Af Amer) 56 POC Glucose (mg/dL) 379 H Random Glucose 401 H* Lactic Acid Calcium 10.0 Magnesium 1.5 L Total Bilirubin 1.6 H AST 51 ALT 54 Alkaline Phosphatase 229 H D Total Protein 7.9 Albumin 4.5 Globulin 3.4 Albumin/Globulin Ratio 1.3 Lipase 41 Venous Blood Potassium Alcohol, Quantitative < 10 Blood Type Antibody Screen BBK History Checked 04/01/18 04/01/18 04/01/18 21:53 21:53 21:53 WBC RBC Hgb Hct MCV MCH MCHC RDW Plt Count MPV Neut % (Auto) Lymph % (Auto) [place] % (Auto) Eos % (Auto) Baso % (Auto) Neut # (Auto) Lymph # (Auto) [place] # (Auto) Eos # (Auto) Baso # (Auto) Neutrophils % (Manual) Band Neutrophils % Lymphocytes % (Manual) Monocytes % (Manual) Platelet Estimate Poikilocytosis (manual Anisocytosis (manual) Microcytosis (manual) PT 13.7 H INR 1.2 APTT 32.8 pO2 VBG pH VBG pCO2 VBG HCO3 VBG Total CO2 VBG O2 Sat (Calc) VBG Base Excess VBG Potassium Glucose Lactate FiO2 Sodium Potassium Chloride Carbon Dioxide Anion Gap BUN Creatinine Est GFR ( Amer) Est GFR (Non-Af Amer) POC Glucose (mg/dL) Random Glucose Lactic Acid 2.1 Calcium Magnesium Total Bilirubin AST ALT Alkaline Phosphatase Total Protein Albumin Globulin Albumin/Globulin Ratio Lipase Venous Blood Potassium Alcohol, Quantitative Blood Type A POSITIVE Antibody Screen Negative BBK History Checked Patient has bt 04/02/18 04/02/18 04/02/18 03:11 03:19 04:38 WBC RBC Hgb Hct MCV MCH MCHC RDW Plt Count MPV Neut % (Auto) Lymph % (Auto) [place] % (Auto) Eos % (Auto) Baso % (Auto) Neut # (Auto) Lymph # (Auto) [place] # (Auto) Eos # (Auto) Baso # (Auto) Neutrophils % (Manual) Band Neutrophils % Lymphocytes % (Manual) Monocytes % (Manual) Platelet Estimate Poikilocytosis (manual Anisocytosis (manual) Microcytosis (manual) PT INR APTT pO2 24 L VBG pH 7.37 VBG pCO2 58 VBG HCO3 28.4 VBG Total CO2 35.3 H VBG O2 Sat (Calc) 50.1 VBG Base Excess 6.4 H VBG Potassium 3.6 Glucose 319 H Lactate 2.3 H FiO2 21.0 Sodium 135.0 Potassium Chloride 97.0 L Carbon Dioxide Anion Gap BUN Creatinine Est GFR ( Amer) Est GFR (Non-Af Amer) POC Glucose (mg/dL) 273 H 326 H Random Glucose Lactic Acid Calcium Magnesium Total Bilirubin AST ALT Alkaline Phosphatase Total Protein Albumin Globulin Albumin/Globulin Ratio Lipase Venous Blood Potassium 3.6 Alcohol, Quantitative Blood Type Antibody Screen BBK History Checked 04/02/18 04/02/18 04/02/18 05:45 05:45 11:29 WBC 7.1 RBC 4.50 Hgb 12.8 Hct 38.9 MCV 86.6 D MCH 28.4 MCHC 32.8 L RDW 16.7 H Plt Count 616 H MPV 9.7 Neut % (Auto) 79.1 H Lymph % (Auto) 11.7 L [place] % (Auto) 8.6 Eos % (Auto) 0.4 Baso % (Auto) 0.2 Neut # (Auto) 5.7 Lymph # (Auto) 0.8 L [place] # (Auto) 0.6 Eos # (Auto) 0.0 Baso # (Auto) 0.0 Neutrophils % (Manual) Band Neutrophils % Lymphocytes % (Manual) Monocytes % (Manual) Platelet Estimate Poikilocytosis (manual Anisocytosis (manual) Microcytosis (manual) PT INR APTT pO2 VBG pH VBG pCO2 VBG HCO3 VBG Total CO2 VBG O2 Sat (Calc) VBG Base Excess VBG Potassium Glucose Lactate FiO2 Sodium 135 Potassium 4.3 Chloride 92 L Carbon Dioxide 31 H Anion Gap 16 BUN 39 H Creatinine 1.1 Est GFR ( Amer) > 60 Est GFR (Non-Af Amer) > 60 POC Glucose (mg/dL) 154 H Random Glucose 260 H Lactic Acid Calcium 9.3 Magnesium Total Bilirubin 1.1 AST 36 ALT 47 Alkaline Phosphatase 195 H Total Protein 7.6 Albumin 4.0 Globulin 3.5 Albumin/Globulin Ratio 1.1 Lipase Venous Blood Potassium Alcohol, Quantitative Blood Type Antibody Screen BBK History Checked
--- NOTE | 2018-04-02 15:30 | CP.PCM.CON ---
History of Present Illness - History of Present Illness History of Present Illness: Podiatry consult note for Dr. Pham, 62 y/o male, with PMHx of DM, HTN, seen and evaluated for left hallux wound. Patient is well known to podiatry service and has been seen in podiatry clinic regularly. Patient admits to moderate pain; states he keeps the hallux covered and is unable to do his own dressing changes therefore has to follow up in clinic. States he has decreased his smoking however is having difficulty stopping. Denies seeing any drainage from the wound. Patient denies any other pedal complaints at this time. Denies N/V/F/SOB/CP. PMHx: DM, HTN PSHx: Right AKA, cholecystectomy Social: Current tobacco use; smokes cigarettes ALL: NKDA Past Patient History - Infectious Disease Hx of Infectious Diseases: None - Past Medical History & Family History Past Medical History?: Yes - Past Social History Smoking Status: Current Some Days Smoker - CARDIAC Hx Hypercholesterolemia: Yes Hx Hypertension: Yes - PULMONARY Hx Pneumonia: Yes - NEUROLOGICAL Hx Neurological Disorder: No - HEENT Hx HEENT Problems: No - RENAL Hx Chronic Kidney Disease: No - ENDOCRINE/METABOLIC Hx Endocrine Disorders: Yes Hx Diabetes Mellitus Type 2: Yes - HEMATOLOGICAL/ONCOLOGICAL Hx Anemia: Yes Hx Human Immunodeficiency Virus (HIV): No - INTEGUMENTARY Hx Dermatological Problems: No - MUSCULOSKELETAL/RHEUMATOLOGICAL Hx Fractures: No - GASTROINTESTINAL Hx Gall Bladder Disease: Yes - GENITOURINARY/GYNECOLOGICAL Hx Genitourinary Disorders: No - PSYCHIATRIC Hx Psychophysiologic Disorder: No Hx Substance Use: No - SURGICAL HISTORY Hx Cholecystectomy: Yes - ANESTHESIA Hx Anesthesia: Yes Hx Anesthesia Reactions: No Hx Malignant Hyperthermia: No Meds Allergies/Adverse Reactions: Allergies Allergy/AdvReac Type Severity Reaction Status Date / Time garlic Allergy Mild RASH Verified 02/26/18 13:10 - Medications Medications: Current Medications Atorvastatin Calcium (Lipitor) 40 mg PO DAILY [facility] Carvedilol (Coreg) 25 mg PO Q12 [facility] Cilostazol (Pletal) 100 mg PO BID [facility] Gabapentin (Neurontin) 300 mg PO HS [facility] Sodium Chloride (Sodium Chloride 0.9%) 1,000 mls @ 100 mls/hr IV .Q10H [facility] Last Admin: 04/02/18 05:00 Dose: Not Given Lactated Ringer's (Lactated Ringer's) 1,000 mls @ 999 mls/hr IV .Q1H1M [facility] Last Admin: 04/02/18 03:48 Dose: 999 mls/hr Insulin Human Lispro (Humalog) 0 units SC Q6H [facility]; Protocol Last Admin: 04/02/18 14:13 Dose: 1 unit Losartan Potassium (Cozaar) 50 mg PO DAILY [facility] Morphine Sulfate (Morphine) 1 mg IVP Q4 PRN PRN Reason: Pain, Mild (1-3) Morphine Sulfate (Morphine) 2 mg IVP Q4 PRN PRN Reason: Pain, moderate (4-7) Morphine Sulfate (Morphine) 4 mg IVP Q4 PRN PRN Reason: Pain, severe (8-10) Last Admin: 04/02/18 11:38 Dose: 4 mg Ondansetron HCl (Zofran Inj) 4 mg IVP Q6 PRN PRN Reason: Nausea/Vomiting Ticagrelor (Brilinta) 90 mg PO BID [facility] Physical Exam - Constitutional Appears: Well, Non-toxic, No Acute Distress - Head Exam Head Exam: ATRAUMATIC - Extremities Exam Additional comments: LLE focused exam: Vascular: DP non-palpable PT nonpalpable, TG warm to cool, no evidence of edema Ortho: Right AKA, pain to the left ulcer site Neuro: gross sensation intact, protective sensation diminished Derm: arterial nonhealing ulcer noted to the left first ray with 60% fibrotic and 40% granular base, malodor noted, no active drainage, no fluctuance, no erythema, no tunneling or tracking, no probe to bone - Neurological Exam Neurological exam: Alert, Oriented x3 - Psychiatric Exam Psychiatric exam: Normal Affect Results - Vital Signs Recent Vital Signs: Last Vital Signs Temp 97.9 F 04/02/18 08:09 Pulse 124 H 04/02/18 08:09 Resp 20 04/02/18 08:09 BP 115/65 04/02/18 08:09 Pulse Ox 97 04/02/18 08:09 - Labs Result Diagrams: 04/07/18 06:10 04/07/18 06:10 Labs: Laboratory Results - last 24 hr 04/01/18 04/01/18 04/01/18 21:00 21:53 21:53 WBC 9.1 RBC 4.48 Hgb 12.8 Hct 37.8 MCV 84.4 MCH 28.7 MCHC 33.9 RDW 17.0 H Plt Count 714 H MPV 10.1 Neut % (Auto) 77.2 H Lymph % (Auto) 9.8 L [place] % (Auto) 12.3 H Eos % (Auto) 0.2 Baso % (Auto) 0.5 Neut # (Auto) 7.0 Lymph # (Auto) 0.9 L [place] # (Auto) 1.1 H Eos # (Auto) 0.0 Baso # (Auto) 0.0 Neutrophils % (Manual) 76 H Band Neutrophils % 3 H Lymphocytes % (Manual) 10 L Monocytes % (Manual) 11 H Platelet Estimate Slightly increased H Poikilocytosis (manual Slight Anisocytosis (manual) Slight Microcytosis (manual) Slight PT INR APTT pO2 VBG pH VBG pCO2 VBG HCO3 VBG Total CO2 VBG O2 Sat (Calc) VBG Base Excess VBG Potassium Glucose Lactate FiO2 Sodium 136 Potassium 3.8 Chloride 87 L Carbon Dioxide 26 Anion Gap 27 H BUN 42 H Creatinine 1.3 Est GFR ( Amer) > 60 Est GFR (Non-Af Amer) 56 POC Glucose (mg/dL) 379 H Random Glucose 401 H* Lactic Acid Calcium 10.0 Magnesium 1.5 L Total Bilirubin 1.6 H AST 51 ALT 54 Alkaline Phosphatase 229 H D Total Protein 7.9 Albumin 4.5 Globulin 3.4 Albumin/Globulin Ratio 1.3 Lipase 41 Venous Blood Potassium Alcohol, Quantitative < 10 Blood Type Antibody Screen BBK History Checked 04/01/18 04/01/18 04/01/18 21:53 21:53 21:53 WBC RBC Hgb Hct MCV MCH MCHC RDW Plt Count MPV Neut % (Auto) Lymph % (Auto) [place] % (Auto) Eos % (Auto) Baso % (Auto) Neut # (Auto) Lymph # (Auto) [place] # (Auto) Eos # (Auto) Baso # (Auto) Neutrophils % (Manual) Band Neutrophils % Lymphocytes % (Manual) Monocytes % (Manual) Platelet Estimate Poikilocytosis (manual Anisocytosis (manual) Microcytosis (manual) PT 13.7 H INR 1.2 APTT 32.8 pO2 VBG pH VBG pCO2 VBG HCO3 VBG Total CO2 VBG O2 Sat (Calc) VBG Base Excess VBG Potassium Glucose Lactate FiO2 Sodium Potassium Chloride Carbon Dioxide Anion Gap BUN Creatinine Est GFR ( Amer) Est GFR (Non-Af Amer) POC Glucose (mg/dL) Random Glucose Lactic Acid 2.1 Calcium Magnesium Total Bilirubin AST ALT Alkaline Phosphatase Total Protein Albumin Globulin Albumin/Globulin Ratio Lipase Venous Blood Potassium Alcohol, Quantitative Blood Type A POSITIVE Antibody Screen Negative BBK History Checked Patient has bt 04/02/18 04/02/18 04/02/18 03:11 03:19 04:38 WBC RBC Hgb Hct MCV MCH MCHC RDW Plt Count MPV Neut % (Auto) Lymph % (Auto) [place] % (Auto) Eos % (Auto) Baso % (Auto) Neut # (Auto) Lymph # (Auto) [place] # (Auto) Eos # (Auto) Baso # (Auto) Neutrophils % (Manual) Band Neutrophils % Lymphocytes % (Manual) Monocytes % (Manual) Platelet Estimate Poikilocytosis (manual Anisocytosis (manual) Microcytosis (manual) PT INR APTT pO2 24 L VBG pH 7.37 VBG pCO2 58 VBG HCO3 28.4 VBG Total CO2 35.3 H VBG O2 Sat (Calc) 50.1 VBG Base Excess 6.4 H VBG Potassium 3.6 Glucose 319 H Lactate 2.3 H FiO2 21.0 Sodium 135.0 Potassium Chloride 97.0 L Carbon Dioxide Anion Gap BUN Creatinine Est GFR ( Amer) Est GFR (Non-Af Amer) POC Glucose (mg/dL) 273 H 326 H Random Glucose Lactic Acid Calcium Magnesium Total Bilirubin AST ALT Alkaline Phosphatase Total Protein Albumin Globulin Albumin/Globulin Ratio Lipase Venous Blood Potassium 3.6 Alcohol, Quantitative Blood Type Antibody Screen BBK History Checked 04/02/18 04/02/18 04/02/18 05:45 05:45 11:29 WBC 7.1 RBC 4.50 Hgb 12.8 Hct 38.9 MCV 86.6 D MCH 28.4 MCHC 32.8 L RDW 16.7 H Plt Count 616 H MPV 9.7 Neut % (Auto) 79.1 H Lymph % (Auto) 11.7 L [place] % (Auto) 8.6 Eos % (Auto) 0.4 Baso % (Auto) 0.2 Neut # (Auto) 5.7 Lymph # (Auto) 0.8 L [place] # (Auto) 0.6 Eos # (Auto) 0.0 Baso # (Auto) 0.0 Neutrophils % (Manual) Band Neutrophils % Lymphocytes % (Manual) Monocytes % (Manual) Platelet Estimate Poikilocytosis (manual Anisocytosis (manual) Microcytosis (manual) PT INR APTT pO2 VBG pH VBG pCO2 VBG HCO3 VBG Total CO2 VBG O2 Sat (Calc) VBG Base Excess VBG Potassium Glucose Lactate FiO2 Sodium 135 Potassium 4.3 Chloride 92 L Carbon Dioxide 31 H Anion Gap 16 BUN 39 H Creatinine 1.1 Est GFR ( Amer) > 60 Est GFR (Non-Af Amer) > 60 POC Glucose (mg/dL) 154 H Random Glucose 260 H Lactic Acid Calcium 9.3 Magnesium Total Bilirubin 1.1 AST 36 ALT 47 Alkaline Phosphatase 195 H Total Protein 7.6 Albumin 4.0 Globulin 3.5 Albumin/Globulin Ratio 1.1 Lipase Venous Blood Potassium Alcohol, Quantitative Blood Type Antibody Screen BBK History Checked Assessment & Plan - Assessment and Plan (Free Text) Assessment: 62 yo male patient seen and evaluated at bedside for left foot nonhealing hallux ulcer Plan: Patient seen and evaluated Labs and vitals reviewed Left foot dressed with betadine soaked gauze and DSD Dakins solution ordered X-rays ordered Wound cultures ordered Podiatry will continue to round on patient Thank you for the consult
--- NOTE | 2018-04-02 18:19 | MRI ---
Date of service: 04/02/2018 PROCEDURE: Magnetic Resonance Cholangiopancreatography HISTORY: Assessment of pancreatic mass COMPARISON: Comparison is made with the previous CT of the abdomen dated 04/01/2018 previous MRI of the abdomen dated 10/02/2017 TECHNIQUE: Multiplanar, multisequence MR images of the abdomen were obtained, including heavily T2 weighted MRCP images of the biliary system. Rotating maximum intensity projection images of the biliary system were generated. Axial post contrast images of the abdomen were also obtained. FINDINGS: MRCP: The common bile duct is of a normal caliber. No evidence of choledocholithiasis. No intrahepatic biliary ductal dilatation. LIVER: There are linear shape the hypointense T1 and T2 signal noted in the liver likely represent pneumobilia. No definite evidence of discrete mass in the liver. GALLBLADDER: The gallbladder is not visualized. SPLEEN: Unremarkable. PANCREAS: The pancreatic body and tail is very small in size. There is [id number] dilatation of the main pancreatic duct. There is relatively fullness and mild enlargement of the pancreatic head noted without definite evidence of discrete mass lesion. No definite evidence of focal abnormal enhancement in the pancreas. ADRENALS: Unremarkable. KIDNEYS: Unremarkable. AORTA: No aneurysm. ASCITES: Trace amount of free fluid noted in the abdomen. OTHER FINDINGS: Moderately dilated bowel loops again noted in the abdomen. IMPRESSION: No evidence of biliary ductal obstruction. The common bile duct is normal in caliber. Suspicious for pneumobilia. Moderate atrophic changes in the pancreatic body and tail again noted. Fullness noted in the pancreatic head without definite evidence of discrete enhancing mass lesion in this study.
--- NOTE | 2018-04-02 22:12 | CARD ---
APPROVED REPORT Date of service: 04/02/2018 EKG Measurement Heart [id number] MD [id number] <Conclusion> Sinus tachycardia Possible Left atrial enlargement Inferior infarct, age undetermined Prolonged QT Abnormal ECG
[2018-04-03] MEDS: Morphine 4 MG/ML VIAL IVP PRN ×2 (02:00→06:46)
--- NOTE | 2018-04-03 07:40 | CP.PCM.PN ---
Subjective - Date & Time of Evaluation Date of Evaluation: 04/03/18 Time of Evaluation: 07:33 - Subjective Subjective: Surgery Progress Note for Dr. López 62M seen and evaluated at bedside this morning. No acute events overnight. Patient continues to complain of abdominal pain radiating to the back. Denies passage of gas or stool. Denies ambulating secondary to pain. Admits to nausea. NGT to LIS with 225cc of gastric content output overnight. Denies f/c, v/d, SOB, CP, headaches, dizziness, or urinary symptoms. Objective - Vital Signs/Intake and Output Vital Signs (last 24 hours): Temp Pulse Resp BP Pulse Ox 97.5 F L 110 H 20 121/67 96 04/03/18 00:38 04/03/18 00:38 04/03/18 00:38 04/03/18 00:38 04/03/18 00:38 - Medications Medications: Current Medications Atorvastatin Calcium (Lipitor) 40 mg PO DAILY [facility] Carvedilol (Coreg) 25 mg PO Q12 [facility] Cilostazol (Pletal) 100 mg PO BID [facility] Enoxaparin Sodium (Lovenox) 40 mg SC DAILY [facility]; Protocol Gabapentin (Neurontin) 300 mg PO HS [facility] Sodium Chloride (Sodium Chloride 0.9%) 1,000 mls @ 100 mls/hr IV .Q10H [facility] Last Admin: 04/02/18 20:15 Dose: 100 mls/hr Lactated Ringer's (Lactated Ringer's) 1,000 mls @ 999 mls/hr IV .Q1H1M [facility] Last Admin: 04/02/18 03:48 Dose: 999 mls/hr Insulin Human Lispro (Humalog) 0 units SC Q6H [facility]; Protocol Last Admin: 04/02/18 20:29 Dose: Not Given Losartan Potassium (Cozaar) 50 mg PO DAILY [facility] Morphine Sulfate (Morphine) 1 mg IVP Q4 PRN PRN Reason: Pain, Mild (1-3) Morphine Sulfate (Morphine) 2 mg IVP Q4 PRN PRN Reason: Pain, moderate (4-7) Last Admin: 04/03/18 06:46 Dose: 2 mg Morphine Sulfate (Morphine) 4 mg IVP Q4 PRN PRN Reason: Pain, severe (8-10) Last Admin: 04/02/18 17:55 Dose: 4 mg Ondansetron HCl (Zofran Inj) 4 mg IVP Q6 PRN PRN Reason: Nausea/Vomiting Last Admin: 04/03/18 00:06 Dose: 4 mg Sodium Hypochlorite (Dakins Solution 0.25%) 0 ml TOP DAILY [facility] Ticagrelor (Brilinta) 90 mg PO BID [facility] - Labs Labs: 04/02/18 05:45 04/02/18 05:45 PT 13.7 Seconds (9.8-13.1) H 04/01/18 21:53 INR 1.2 04/01/18 21:53 APTT 32.8 Seconds (25.6-37.1) 04/01/18 21:53 - Constitutional Appears: Well, Non-toxic, No Acute Distress - Head Exam Head Exam: ATRAUMATIC, NORMAL INSPECTION, NORMOCEPHALIC - Eye Exam Eye Exam: EOMI - ENT Exam ENT Exam: Mucous Membranes Moist - Respiratory Exam Respiratory Exam: NORMAL BREATHING PATTERN. absent: Respiratory Distress - Cardiovascular Exam Cardiovascular Exam: Tachycardia - GI/Abdominal Exam GI & Abdominal Exam: Distended, Guarding, Tenderness. absent: Rigid, Rebound - Neurological Exam Neurological Exam: Alert, Awake, Oriented x3 - Psychiatric Exam Psychiatric exam: Normal Affect, Normal Mood - Skin Skin Exam: Dry, Intact, Normal Color, Warm Assessment and Plan - Assessment and Plan (Free Text) Assessment: 62M w/ high grade SBO MRCP shows atrophic pancreas with mildly dilated pancreatic duct, no CBD obstruction Plan: NPO IVF Analgesic prn Anti-emetic prn NGT to LIS Strict I&O's AM labs Encourage ambulation, OOBTC Monitor return of bowel function Medical management per primary team D/w Dr. Maribel David PGY1
[2018-04-03] MEDS ORDERED: Sodium Chloride 0.9% 1,000 ML IV SCH ×2 (07:45→08:30)
[2018-04-03] MEDS: Insulin Lispro (humaLOG) 100 Units/ml Inj SC SCH ×3 (08:07→18:27)
--- NOTE | 2018-04-03 08:33 | RAD ---
Date of service: 04/02/2018 PROCEDURE: Left Foot Radiographs. HISTORY: left foot nonhealing ulcer COMPARISON: None. FINDINGS: BONES: Partial 1st metatarsal resection. Irregularity of the navicular. JOINTS: Normal. SOFT TISSUES: Normal. OTHER FINDINGS: None. IMPRESSION: Partial 1st metatarsal resection. Irregularity of the navicular.
[2018-04-03] MEDS: Enoxaparin 40 mg Syringe SC SCH (09:06)
[2018-04-03] MEDS: Lactated Ringer's 1,000 ML IV SCH (09:08)
[2018-04-03] MEDS: Sodium Chloride 0.9% 1,000 ML IV SCH (09:10)
[2018-04-03] MEDS: Dakin's Topical 0.25%-Half Strength (480 ml) TOP SCH (09:22)
[2018-04-03 12:06] LABS: HEMOGLOBIN 10.3 g/dL (12.0-18.0); MEAN CELL VOLUME 86.7 fl (80.0-94.0); MEAN CORPUSCULAR HEMOGLOBIN 28.6 pg (27.0-31.0); RBC 3.61 Mil/uL (4.40-5.90); RED CELL DISTRIBUTION WIDTH 16.6 % (11.5-14.5); WHITE BLOOD COUNT 7.8 K/uL (4.8-10.8)
[2018-04-03 12:20] LABS: ALB/GLOB RATIO 1.1 (1.0-2.1); ALBUMIN 3.5 g/dL (3.5-5.0); ALT/SGPT 35 U/L (21-72); AST/SGOT 28 U/L (17-59); BLOOD UREA NITROGEN 32 mg/dl (9-20); CALCIUM 9.1 mg/dL (8.4-10.2); GFR NON-AFRICAN AMERICAN > 60
--- NOTE | 2018-04-03 12:36 | CP.PCM.PN ---
Subjective - Date & Time of Evaluation Date of Evaluation: 04/03/18 Time of Evaluation: 09:15 - Subjective Subjective: 62 y/o M was seen and examined by bedside. Pt complains of lower abdominal dull pain, reports seem improvement but pain is considered as moderate. Pt is NPO, and not passing gasses. Last bowel movement was 2 days ago and was soft, semi- solid with no blood. 225cc of gastric content output trhough NGT overnight. Pt denies nausea, vomiting, chest pain, SOB,diarrhea. Objective - Vital Signs/Intake and Output Vital Signs (last 24 hours): Temp Pulse Resp BP Pulse Ox 97.4 F L 78 20 119/61 94 L 04/03/18 08:08 04/03/18 08:08 04/03/18 08:08 04/03/18 08:08 04/03/18 08:08 - Medications Medications: Current Medications Atorvastatin Calcium (Lipitor) 40 mg PO DAILY [facility] Carvedilol (Coreg) 25 mg PO Q12 [facility] Cilostazol (Pletal) 100 mg PO BID [facility] Enoxaparin Sodium (Lovenox) 40 mg SC DAILY [facility]; Protocol Last Admin: 04/03/18 09:06 Dose: 40 mg Gabapentin (Neurontin) 300 mg PO HS [facility] Sodium Chloride (Sodium Chloride 0.9%) 1,000 mls @ 100 mls/hr IV .Q10H [facility] Last Admin: 04/03/18 09:10 Dose: Not Given Lactated Ringer's (Lactated Ringer's) 1,000 mls @ 999 mls/hr IV .Q1H1M [facility] Last Admin: 04/03/18 09:08 Dose: Not Given Sodium Chloride (Sodium Chloride 0.9%) 1,000 mls @ 150 mls/hr IV .Q6H40M [facility] Stop: 04/04/18 08:21 Last Admin: 04/03/18 09:04 Dose: 150 mls/hr Insulin Human Lispro (Humalog) 0 units SC Q6H [facility]; Protocol Last Admin: 04/03/18 11:52 Dose: Not Given Losartan Potassium (Cozaar) 50 mg PO DAILY [facility] Morphine Sulfate (Morphine) 1 mg IVP Q4 PRN PRN Reason: Pain, Mild (1-3) Morphine Sulfate (Morphine) 2 mg IVP Q4 PRN PRN Reason: Pain, moderate (4-7) Last Admin: 04/03/18 06:46 Dose: 2 mg Morphine Sulfate (Morphine) 4 mg IVP Q4 PRN PRN Reason: Pain, severe (8-10) Last Admin: 04/02/18 17:55 Dose: 4 mg Ondansetron HCl (Zofran Inj) 4 mg IVP Q6 PRN PRN Reason: Nausea/Vomiting Last Admin: 04/03/18 00:06 Dose: 4 mg Pantoprazole Sodium (Protonix Inj) 40 mg IVP DAILY [facility] Last Admin: 04/03/18 09:21 Dose: 40 mg Sodium Hypochlorite (Dakins Solution 0.25%) 0 ml TOP DAILY [facility] Last Admin: 04/03/18 09:22 Dose: Not Given Ticagrelor (Brilinta) 90 mg PO BID [facility] - Labs Labs: 04/03/18 11:57 04/03/18 11:57 PT 13.7 Seconds (9.8-13.1) H 04/01/18 21:53 INR 1.2 04/01/18 21:53 APTT 32.8 Seconds (25.6-37.1) 04/01/18 21:53 - Constitutional Appears: No Acute Distress, Cachectic - Head Exam Head Exam: ATRAUMATIC, NORMAL INSPECTION - Eye Exam Eye Exam: EOMI, Normal appearance - ENT Exam ENT Exam: Mucous Membranes Moist - Neck Exam Neck Exam: Full ROM, Meningismus - Respiratory Exam Respiratory Exam: NORMAL BREATHING PATTERN. absent: Rhonchi, Wheezes, Respiratory Distress - Cardiovascular Exam Cardiovascular Exam: REGULAR RHYTHM, +S1, +S2 - GI/Abdominal Exam GI & Abdominal Exam: Distended (mild), Guarding, Soft, Tenderness (diffuse in all 4 quadrants). absent: Rigid, Normal Bowel Sounds, Organomegaly - Extremities Exam Extremities Exam: Full ROM. absent: Calf Tenderness, Pedal Edema, Tenderness - Neurological Exam Neurological Exam: Alert, Awake Assessment and Plan - Assessment and Plan (Free Text) Assessment: 62 yo with a PMHx of HTN, peripheral vascular disease, uncontrolled diabetes mellitus (not in insulin as pt not agreeable), right AKA, cholecystectomy?, unknown abdominal procedure/surgery?, admitted due to partial SBO. PLAN: >Small Bowel Obstruction -Surgical consult -NPO, IV maintenance fluids 100 ml/hr -Zofran PRN, Pantoprazole IVP daily. -Pain control w/ morphine -CT Abdomen: Probable mechanical small-bowel obstruction. -Repeat Abdomina X-ray >Cachexia -Evident on physical exam -Pt reports significant weight loss in past 3 months -Pancreatic mass on CT? F/u official report; consider heme/onc vs GI? >Uncontrolled Diabetes Mellitus, type 2 -Insulin coverage scale -Accuchek Q6 hrs -Poor adherence to meds >Hypo Mg -Resolved after repletion -Serum Mg 2.1-wnl >Hypertension -Chronic, not elevated in ED -Re-eval home meds when not NPO >PVD -Chronic -C/w Cilostazol, gabapentin when not NPO >DVT prophylaxis - SCD for now
[2018-04-03] MEDS: Potassium Chl 20 mEq in NS 1,000 ML IV SCH ×2 (16:32→22:09)
[2018-04-04] MEDS: Insulin Lispro (humaLOG) 100 Units/ml Inj SC SCH ×3 (00:26→12:18)
[2018-04-04] MEDS: Potassium Chl 20 mEq in NS 1,000 ML IV SCH ×2 (01:45→04:49)
[2018-04-04 06:58] LABS: HEMOGLOBIN 11.2 g/dL (12.0-18.0); MEAN CORPUSCULAR HEMOGLOBIN 28.1 pg (27.0-31.0); MEAN CORPUSCULAR HGB CONC 32.3 g/dL (33.0-37.0); RBC 3.97 Mil/uL (4.40-5.90); RED CELL DISTRIBUTION WIDTH 16.2 % (11.5-14.5); WHITE BLOOD COUNT 7.4 K/uL (4.8-10.8)
[2018-04-04 07:11] LABS: BLOOD UREA NITROGEN 30 mg/dl (9-20); CALCIUM 9.2 mg/dL (8.4-10.2); GFR NON-AFRICAN AMERICAN > 60
[2018-04-04 08:28] LABS: HDL CHOLESTEROL 22 MG/DL (30-70)
[2018-04-04] MEDS ORDERED: Lactated Ringer's 1,000 ML IV SCH ×2 (08:30→22:45)
--- NOTE | 2018-04-04 09:01 | CP.PCM.PN ---
Subjective - Date & Time of Evaluation Date of Evaluation: 04/04/18 Time of Evaluation: 09:00 - Subjective Subjective: Pt is a 62 yo M with PMH PVD s/p right AKA , s/p left great Toe distal ray amputation, DM, HTN, not compliant with treatment presented complaining of abdominal pain. He is diagnosed with SBO (KUB-SBO with dilated bowel loops) admitted to med/surg. Pt is NPO this morning will be taken for surgery with Dr. López. Today pt still reports right and left lower quadrant abdominal pain radiating to his back, nausea, has not passed flatus, NGT in place with digested food output total 1900 overnight and this am(pt was consuming ice chips). Reports mild cough, SOB, increased thirst. Denies vomiting, chest pain, dysuria. Objective - Vital Signs/Intake and Output Vital Signs (last 24 hours): Temp Pulse Resp BP Pulse Ox 97.5 F L 90 19 117/70 99 04/04/18 08:49 04/04/18 08:49 04/04/18 08:49 04/04/18 08:49 04/04/18 08:49 Intake and Output: 04/04/18 04/04/18 06:59 18:59 Intake Total 1800 Output Total 1100 Balance 700 - Medications Medications: Current Medications Atorvastatin Calcium (Lipitor) 40 mg PO DAILY [facility] Carvedilol (Coreg) 25 mg PO Q12 [facility] Cilostazol (Pletal) 100 mg PO BID [facility] Enoxaparin Sodium (Lovenox) 40 mg SC DAILY [facility]; Protocol Last Admin: 04/03/18 09:06 Dose: 40 mg Gabapentin (Neurontin) 300 mg PO HS [facility] Sodium Chloride (Sodium Chloride 0.9%) 1,000 mls @ 100 mls/hr IV .Q10H [facility] Last Admin: 04/03/18 09:10 Dose: Not Given Lactated Ringer's (Lactated Ringer's) 1,000 mls @ 1,000 mls/hr IV .Q1H [facility] Stop: 04/04/18 09:29 Insulin Human Lispro (Humalog) 0 units SC Q6H [facility]; Protocol Last Admin: 04/04/18 07:10 Dose: Not Given Ketorolac Tromethamine (Toradol) 15 mg IVP Q6 PRN PRN Reason: Pain, moderate (4-7) Ketorolac Tromethamine (Toradol) 30 mg IVP Q6 PRN PRN Reason: Pain, severe (8-10) Losartan Potassium (Cozaar) 50 mg PO DAILY [facility] Morphine Sulfate (Morphine) 1 mg IVP Q4 PRN PRN Reason: Pain, Mild (1-3) Morphine Sulfate (Morphine) 2 mg IVP Q4 PRN PRN Reason: Pain, moderate (4-7) Last Admin: 04/03/18 06:46 Dose: 2 mg Morphine Sulfate (Morphine) 4 mg IVP Q4 PRN PRN Reason: Pain, severe (8-10) Last Admin: 04/02/18 17:55 Dose: 4 mg Ondansetron HCl (Zofran Inj) 4 mg IVP Q6 PRN PRN Reason: Nausea/Vomiting Last Admin: 04/03/18 00:06 Dose: 4 mg Pantoprazole Sodium (Protonix Inj) 40 mg IVP DAILY [facility] Last Admin: 04/03/18 09:21 Dose: 40 mg Sodium Hypochlorite (Dakins Solution 0.25%) 0 ml TOP DAILY [facility] Last Admin: 04/03/18 09:22 Dose: Not Given Ticagrelor (Brilinta) 90 mg PO BID [facility] - Labs Labs: 04/04/18 05:30 04/04/18 05:30 PT 13.7 Seconds (9.8-13.1) H 04/01/18 21:53 INR 1.2 04/01/18 21:53 APTT 32.8 Seconds (25.6-37.1) 04/01/18 21:53 - Constitutional Appears: No Acute Distress, Cachectic - Head Exam Head Exam: ATRAUMATIC, NORMAL INSPECTION Additional comments: NG tube in place - Eye Exam Eye Exam: EOMI, Scleral icterus - ENT Exam ENT Exam: Mucous Membranes Moist - Respiratory Exam Respiratory Exam: Decreased Breath Sounds, NORMAL BREATHING PATTERN. absent: Rales, Rhonchi, Wheezes - Cardiovascular Exam Cardiovascular Exam: RRR, +S1, +S2 - GI/Abdominal Exam GI & Abdominal Exam: Distended (Mildly), Guarding, Tenderness (Diffuse to palpation), Hypoactive Bowel Sounds. absent: Rebound - Extremities Exam Additional comments: R AKA, L Foot wrapped in dressing clean dry intact - Neurological Exam Neurological Exam: Alert, Awake, Oriented x3 - Skin Skin Exam: Dry Assessment and Plan - Assessment and Plan (Free Text) Assessment: 62 yo with a PMHx of HTN, peripheral vascular disease, uncontrolled diabetes mellitus (not in insulin as pt not agreeable), right AKA, cholecystectomy?, unknown abdominal procedure/surgery?, admitted due to partial SBO. PLAN: >Small Bowel Obstruction -Surgical consult Dr. López- will perform surgery this AM. -Maintain NPO, IV LR's, PPN-Clinimix @42ml/hr -Zofran PRN, Pantoprazole IVP daily. -Pain control w/ Toradol and morphine PRN -CT Abdomen: Probable mechanical small-bowel obstruction. -Repeat Abdominal X-ray- multiple distended loops of small bowel suspicious for SBO >Cachexia -Evident on physical exam -Pt reports significant weight loss in past 3 months -Atrophic changes of pancreatic tail and body, mild to mod dilation of main pancreatic duct, fullness and enlargement of pancreatic head, without definite evidence of discrete mass lesion on CT and MRCP >Uncontrolled Diabetes Mellitus, type 2 -Insulin coverage scale, POC 162, HGA1c 15.4 -Accuchek Q6 hrs -Poor adherence to meds, refusing insulin due to fear of needles. -Ordered diabetes education >Hypo Mg -Resolved after repletion -Serum Mg 2.0-wnl >Hypertension -Chronic, not elevated in ED -Re-eval home meds when not NPO >PVD, L Foot ulcer -Chronic -Podiatry consulted- recc appreciated- F/u wound cx -C/w Cilostazol, gabapentin when not NPO -OT/PT consulted >Thrombocytosis -Chronic, platelets 586 -continue to monitor >Anemia -HG 11.2 -Stool occult blood- negative 10/11/17 -continue to monitor >DVT prophylaxis - Lovenox Case discussed with Dr. Frankie Dumont PGY 1
--- NOTE | 2018-04-04 09:15 | RAD ---
Date of service: 04/03/2018 HISTORY: SBO COMPARISON: None available. FINDINGS: BOWEL: Multiple distended loops of small bowel suspicious for small bowel obstruction. BONES: Normal. OTHER FINDINGS: None. IMPRESSION: Multiple distended loops of small bowel suspicious for small bowel obstruction.
[2018-04-04] MEDS: Enoxaparin 40 mg Syringe SC SCH (09:17)
[2018-04-04 09:43] LABS: LDL CHOLESTEROL < 30 mg/dL (0-129)
[2018-04-04] MEDS: Dakin's Topical 0.25%-Half Strength (480 ml) TOP SCH (12:19)
--- NOTE | 2018-04-04 15:13 | CARD ---
APPROVED REPORT Date of service: 04/04/2018 EKG Measurement Heart [id number] <Conclusion> Normal sinus rhythm Septal infarct, age undetermined Inferior infarct, age undetermined Prolonged QT Abnormal ECG
[2018-04-04] MEDS ORDERED: BUPIVACAINE 0.75% IS ONE (16:00)
[2018-04-04] MEDS ORDERED: STERILE WATER IS ONE (16:00)
[2018-04-04] MEDS ORDERED: Bupivacaine HCl 0.5% PF (30 ml) Inj ONE (17:26)
[2018-04-04] MEDS ORDERED: Bupivacaine 0.25%-Epinephrine 1:200,000 (30 ml) Inj ONE (17:26)
[2018-04-04] MEDS ORDERED: metroNIDAZOLE 500mg/100ml NS 100 ML IVPB ONE (17:26)
[2018-04-04] MEDS ORDERED: Propofol 10 mg/ml Inj (20 ML) ONE (18:06)
[2018-04-04] MEDS ORDERED: Succinylcholine Chloride 20 mg/ml Syr (5 ml) IV ONE (18:07)
[2018-04-04] MEDS ORDERED: Midazolam 2 MG/2 ML VIAL ONE (18:07)
[2018-04-04] MEDS ORDERED: Ketamine 50 mg/ml Inj (10 ml) ONE (18:07)
[2018-04-04] MEDS ORDERED: Rocuronium 10 mg/ml (5 ml) ONE ×2 (18:07→20:34)
[2018-04-04] MEDS ORDERED: Lactated Ringer's 1,000 ML IV ONE ×4 (18:10→21:00)
[2018-04-04] MEDS ORDERED: Metoprolol 1 mg/ml Inj ONE (19:09)
--- NOTE | 2018-04-04 19:44 | CP.PCM.PN ---
Subjective - Date & Time of Evaluation Date of Evaluation: 04/04/18 Time of Evaluation: 19:42 - Subjective Subjective: Podiatry progress note - Dr. Pham 62M seen and evaluated at bedside this AM. Resting comfortably. NG tube in place. Reports mild pain to left foot that has improved since admission. Denies n/v/f/c/sob/cp and has no other acute complaints. Objective - Vital Signs/Intake and Output Vital Signs (last 24 hours): Temp Pulse Resp BP Pulse Ox 97.7 F 92 H 20 124/71 100 04/04/18 16:13 04/04/18 16:13 04/04/18 16:13 04/04/18 16:13 04/04/18 16:13 Intake and Output: 04/04/18 04/05/18 18:59 06:59 Intake Total 1000 Balance 1000 - Medications Medications: Current Medications Atorvastatin Calcium (Lipitor) 40 mg PO DAILY [facility] Carvedilol (Coreg) 25 mg PO Q12 [facility] Cilostazol (Pletal) 100 mg PO BID [facility] Enoxaparin Sodium (Lovenox) 40 mg SC DAILY [facility]; Protocol Last Admin: 04/04/18 09:17 Dose: Not Given Gabapentin (Neurontin) 300 mg PO HS [facility] Sodium Chloride (Sodium Chloride 0.9%) 1,000 mls @ 100 mls/hr IV .Q10H [facility] Last Admin: 04/03/18 09:10 Dose: Not Given Chromium/Copper/Manganese/Zinc 3 ml/ Multivitamins/Vitamin C 10 ml/ Amino Acids 1,013 mls @ 42 mls/hr IV .Q24H [facility] Last Admin: 04/04/18 12:03 Dose: 42 mls/hr Bupivacaine HCl 100 ml/ (Sterile Water) 600 mls @ 10 mls/hr IS .Q24H [facility] Stop: 04/05/18 15:59 Insulin Human Lispro (Humalog) 0 units SC Q6H [facility]; Protocol Last Admin: 04/04/18 12:18 Dose: 2 unit Ketorolac Tromethamine (Toradol) 15 mg IVP Q6 PRN PRN Reason: Pain, moderate (4-7) Ketorolac Tromethamine (Toradol) 30 mg IVP Q6 PRN PRN Reason: Pain, severe (8-10) Losartan Potassium (Cozaar) 50 mg PO DAILY [facility] Morphine Sulfate (Morphine) 1 mg IVP Q4 PRN PRN Reason: Pain, Mild (1-3) Morphine Sulfate (Morphine) 2 mg IVP Q4 PRN PRN Reason: Pain, moderate (4-7) Last Admin: 04/03/18 06:46 Dose: 2 mg Morphine Sulfate (Morphine) 4 mg IVP Q4 PRN PRN Reason: Pain, severe (8-10) Last Admin: 04/02/18 17:55 Dose: 4 mg Ondansetron HCl (Zofran Inj) 4 mg IVP Q6 PRN PRN Reason: Nausea/Vomiting Last Admin: 04/03/18 00:06 Dose: 4 mg Pantoprazole Sodium (Protonix Inj) 40 mg IVP DAILY [facility] Last Admin: 04/04/18 13:30 Dose: 40 mg Sodium Hypochlorite (Dakins Solution 0.25%) 0 ml TOP DAILY [facility] Last Admin: 04/04/18 12:19 Dose: Not Given Ticagrelor (Brilinta) 90 mg PO BID [facility] - Labs Labs: 04/04/18 05:30 04/04/18 05:30 PT 13.7 Seconds (9.8-13.1) H 04/01/18 21:53 INR 1.2 04/01/18 21:53 APTT 32.8 Seconds (25.6-37.1) 04/01/18 21:53 - Constitutional Appears: Non-toxic, No Acute Distress - Head Exam Head Exam: NORMOCEPHALIC - Extremities Exam Additional comments: LLE focused exam: Vascular: DP non-palpable PT nonpalpable, TG warm to cool, no evidence of edema Ortho: Right AKA, pain to the left ulcer site Neuro: gross sensation intact, protective sensation diminished Derm: arterial nonhealing ulcer noted to the left first ray with 60% fibrotic and 40% granular base, malodor noted, no active drainage, no fluctuance, no erythema, no tunneling or tracking, no probe to bone - Neurological Exam Neurological Exam: Alert, Awake, Oriented x3 - Psychiatric Exam Psychiatric exam: Normal Affect, Normal Mood Assessment and Plan - Assessment and Plan (Free Text) Assessment: 62M with left foot nonhealing hallux ulcer Plan: Patient seen and evaluated Discussed in detail with Dr. Pham Wound cleansed with sterile saline and dressed with dakins and DSD X-ray left foot - irregular navicular, normal post amputation site Wound culture pending Podiatry to continue to follow Further recs per Dr. Pham
[2018-04-04] MEDS ORDERED: Neostigmine 1:1000 (1 mg/ml) Inj ONE (20:34)
[2018-04-04] MEDS ORDERED: Bacitracin Ointment 30 GM TUBE ONE (22:11)
[2018-04-04 22:29] LABS: BLOOD UREA NITROGEN 33 mg/dl (9-20); CALCIUM 8.8 mg/dL (8.4-10.2); GFR NON-AFRICAN AMERICAN > 60
[2018-04-04] MEDS ORDERED: Morphine 4 MG/ML VIAL IVP PRN (22:44)
--- NOTE | 2018-04-04 22:55 | PCM.SURG1 ---
Surgeon's Initial Post Op Note - Surgeon's Notes Surgeon: Dr. López Environmental Remediation Specialist: Taylor Mitchell, PGY2 Type of Anesthesia: General Endo Anesthesia Administered By: Dr. Shay Glasgow Pre-Operative Diagnosis: small bowel obstruction Operative Findings: numerous intra-abdominal adhesions, dilated loops of small and large bowel, area of walled off phlegmonous changes overlying one small bowel perforation Post-Operative Diagnosis: Small bowel obstruction, small bowel peforation Operation Performed: exploratory laparoscopy with extensive lysis of adhesion, conversion to laparotomy with resection of small bowel peforation with primary anastamosis, extensive washout Specimen/Specimens Removed: portion of proximal ileum Estimated Blood Loss: EBL {In ML}: 50 Blood Products Given: N/A Drains Used: No Drains Post-Op Condition: Fair Date of Surgery/Procedure: 04/04/18 Time of Surgery/Procedure: 18:00
[2018-04-04] MEDS: Piperacillin/Tazobact 3.375 GM in Sodium Chloride 0.9% 100 ML IVPB SCH (23:16)
[2018-04-05] MEDS: Insulin Lispro (humaLOG) 100 Units/ml Inj SC SCH ×4 (00:30→18:02)
[2018-04-05] MEDS: Lactated Ringer's 1,000 ML IV SCH ×5 (01:08→22:56)
--- NOTE | 2018-04-05 02:57 | CP.PCM.PCO ---
Assessment & Plan - Assessment and Plan (Free Text) Assessment: Pt seen an evaluated post operatively in the PACU. Hemodynamically stable. Seen lying in bed asleep with bear bugger, no acute distress noted. Urine bag w/ 150cc of urine.
[2018-04-05] MEDS: Piperacillin/Tazobact 3.375 GM in Sodium Chloride 0.9% 100 ML IVPB SCH ×2 (05:34→15:06)
--- NOTE | 2018-04-05 07:22 | CP.PCM.PN ---
Subjective - Date & Time of Evaluation Date of Evaluation: 04/05/18 Time of Evaluation: 07:13 - Subjective Subjective: Surgery Progress note- Dr. López Patient seen and examined at bedside. s/p Lap converted to open small bowel resection pod#1. Pain around incision site, well controlled w/ current pain medications. Remains NPO, NGT in place with minimal output since surgery. Blackwell in place w/ 300cc since midnight, clear urine. On IVAbx. Afebrile overnight. Objective - Vital Signs/Intake and Output Vital Signs (last 24 hours): Temp Pulse Resp BP Pulse Ox 97.7 F 112 H 19 140/74 98 04/05/18 03:10 04/05/18 03:10 04/05/18 03:10 04/05/18 03:10 04/05/18 03:10 Intake and Output: 04/05/18 04/05/18 06:59 18:59 Intake Total 3100 Output Total 95 Balance 3005 - Medications Medications: Current Medications Atorvastatin Calcium (Lipitor) 40 mg PO DAILY [facility] Carvedilol (Coreg) 25 mg PO Q12 [facility] Cilostazol (Pletal) 100 mg PO BID [facility] Enoxaparin Sodium (Lovenox) 40 mg SC DAILY [facility]; Protocol Last Admin: 04/04/18 09:17 Dose: Not Given Gabapentin (Neurontin) 300 mg PO HS [facility] Hydromorphone HCl (Dilaudid) 1 mg IVP Q4 PRN PRN Reason: Pain, severe (8-10) Last Admin: 04/05/18 05:40 Dose: 1 mg Chromium/Copper/Manganese/Zinc 3 ml/ Multivitamins/Vitamin C 10 ml/ Amino Acids 1,013 mls @ 42 mls/hr IV .Q24H [facility] Last Admin: 04/04/18 12:03 Dose: 42 mls/hr Lactated Ringer's (Lactated Ringer's) 1,000 mls @ 150 mls/hr IV .Q6H40M [facility] Last Admin: 04/05/18 02:22 Dose: 150 mls/hr Piperacillin Sod/Tazobactam (Sod 3.375 gm/ Sodium Chloride) 100 mls @ 100 mls/hr IVPB Q6H [facility]; Protocol Last Admin: 04/05/18 05:34 Dose: 100 mls/hr Lactated Ringer's (Lactated Ringer's) 1,000 mls @ 1,000 mls/hr IV .Q1H [facility] Last Admin: 04/05/18 01:08 Dose: 1,000 mls/hr Insulin Human Lispro (Humalog) 0 units SC Q6H [facility]; Protocol Last Admin: 04/05/18 00:30 Dose: Not Given Losartan Potassium (Cozaar) 50 mg PO DAILY [facility] Morphine Sulfate (Morphine) 1 mg IVP Q4 PRN PRN Reason: Pain, Mild (1-3) Morphine Sulfate (Morphine) 4 mg IVP Q4 PRN PRN Reason: Pain, moderate (4-7) Ondansetron HCl (Zofran Inj) 4 mg IVP Q6 PRN PRN Reason: Nausea/Vomiting Last Admin: 04/03/18 00:06 Dose: 4 mg Pantoprazole Sodium (Protonix Inj) 40 mg IVP DAILY [facility] Last Admin: 04/04/18 13:30 Dose: 40 mg Sodium Hypochlorite (Dakins Solution 0.25%) 0 ml TOP DAILY [facility] Last Admin: 04/04/18 12:19 Dose: Not Given Ticagrelor (Brilinta) 90 mg PO BID [facility] - Labs Labs: 04/04/18 05:30 04/04/18 22:00 PT 13.7 Seconds (9.8-13.1) H 04/01/18 21:53 INR 1.2 04/01/18 21:53 APTT 32.8 Seconds (25.6-37.1) 04/01/18 21:53 - Constitutional Appears: Non-toxic, No Acute Distress - Head Exam Head Exam: ATRAUMATIC - Eye Exam Eye Exam: EOMI. absent: Scleral icterus - ENT Exam ENT Exam: Mucous Membranes Moist - Respiratory Exam Respiratory Exam: NORMAL BREATHING PATTERN. absent: Accessory Muscle Use, Respiratory Distress - GI/Abdominal Exam GI & Abdominal Exam: Soft, Tenderness (tenderness around incision site). absent: Distended, Firm, Guarding, Rigid - Exam Additional comments: Blackwell in place, making clear urine - Extremities Exam Additional comments: R. BKA - Neurological Exam Neurological Exam: Alert, Awake, Oriented x3 - Psychiatric Exam Psychiatric exam: Normal Affect - Skin Skin Exam: Intact, Warm Assessment and Plan - Assessment and Plan (Free Text) Assessment: 62M w/ small bowel obstruction s/p laparoscopic converted to open exploratory laparotomy, w/ small bowel resection and abdominal washout POD#1 Plan: - Pain control PRN - restart pt on BetaBlocker; can clamp NGT when admin - NPO w/ mouth swabs - NGT to low intermittent suction - TPN - IVF/Abx - DVT ppx - further recs per Dr. Maribel Camargo PGY2
[2018-04-05] MEDS ORDERED: Lactated Ringer's 1,000 ML IV SCH ×2 (07:45→08:00)
[2018-04-05 09:28] LABS: MEAN CELL VOLUME 86.9 fl (80.0-94.0); MEAN CORPUSCULAR HEMOGLOBIN 28.6 pg (27.0-31.0); MEAN CORPUSCULAR HGB CONC 32.9 g/dL (33.0-37.0); RBC 3.86 Mil/uL (4.40-5.90); RED CELL DISTRIBUTION WIDTH 16.5 % (11.5-14.5); WHITE BLOOD COUNT 7.8 K/uL (4.8-10.8)
[2018-04-05] MEDS ORDERED: Lidocaine Hydrochloride 5 ML INJ ONE (09:30)
[2018-04-05 09:45] LABS: ALBUMIN 2.8 g/dL (3.5-5.0); ALT/SGPT 31 U/L (21-72); AST/SGOT 36 U/L (17-59); BLOOD UREA NITROGEN 30 mg/dl (9-20); CALCIUM 8.6 mg/dL (8.4-10.2); GFR NON-AFRICAN AMERICAN > 60
--- NOTE | 2018-04-05 10:19 | PCM.SURG1 ---
Surgeon's Initial Post Op Note - Surgeon's Notes Surgeon: Piyush Briones MD Blind Hanger: NONE Type of Anesthesia: Local Pre-Operative Diagnosis: Infection Operative Findings: US showed a patent right basilic vein. Post-Operative Diagnosis: Infection Operation Performed: Single lumen picc placement, 38 cm, via the right basilic vein. Tip in SVC. Specimen/Specimens Removed: NONE Estimated Blood Loss: EBL {In ML}: 2 Blood Products Given: N/A Drains Used: No Drains Post-Op Condition: Fair Date of Surgery/Procedure: 04/05/18 Time of Surgery/Procedure: 10:10
--- NOTE | 2018-04-05 12:19 | CP.PCM.PN ---
Subjective - Date & Time of Evaluation Date of Evaluation: 04/05/18 Time of Evaluation: 10:45 - Subjective Subjective: 62 y/o M was seen and examined by bedside. Pt reports feeling lower abdominal pain, severe at times, 10/10, but no nausea, no vomiting. Pt is NPO, has NGT in place, 140cc collected on container by side. Blackwell also in placed, minimal out put noted. Pt denies chest pain, SOB or palpitations. --Last night, pt had an "exploratory laparoscopy with extensive lysis of adhesion, conversion to laparotomy with resection of small bowel perforation with primary anastomosis." Objective - Vital Signs/Intake and Output Vital Signs (last 24 hours): Temp Pulse Resp BP Pulse Ox 97.2 F L 110 H 18 116/72 98 04/05/18 10:13 04/05/18 10:30 04/05/18 10:13 04/05/18 10:30 04/05/18 10:30 Intake and Output: 04/05/18 04/05/18 06:59 18:59 Intake Total 4850 Output Total 395 Balance 4455 - Medications Medications: Current Medications Atorvastatin Calcium (Lipitor) 40 mg PO DAILY [facility] Carvedilol (Coreg) 25 mg PO Q12 [facility] Last Admin: 04/05/18 09:22 Dose: 25 mg Cilostazol (Pletal) 100 mg PO BID [facility] Enoxaparin Sodium (Lovenox) 40 mg SC DAILY [facility]; Protocol Gabapentin (Neurontin) 300 mg PO HS [facility] Hydromorphone HCl (Dilaudid) 1 mg IVP Q4 PRN PRN Reason: Pain, severe (8-10) Last Admin: 04/05/18 05:40 Dose: 1 mg Chromium/Copper/Manganese/Zinc 3 ml/ Multivitamins/Vitamin C 10 ml/ Amino Acids 1,013 mls @ 42 mls/hr IV .Q24H [facility] Last Admin: 04/04/18 12:03 Dose: 42 mls/hr Lactated Ringer's (Lactated Ringer's) 1,000 mls @ 150 mls/hr IV .Q6H40M [facility] Last Admin: 04/05/18 05:25 Dose: Not Given Piperacillin Sod/Tazobactam (Sod 3.375 gm/ Sodium Chloride) 100 mls @ 100 mls/hr IVPB Q6H [facility]; Protocol Last Admin: 04/05/18 05:34 Dose: 100 mls/hr Lactated Ringer's (Lactated Ringer's) 1,000 mls @ 1,000 mls/hr IV .Q1H [facility] Last Admin: 04/05/18 01:08 Dose: 1,000 mls/hr Lactated Ringer's (Lactated Ringer's) 1,000 mls @ 999 mls/hr IV .Q1H1M [facility] Insulin Human Lispro (Humalog) 0 units SC Q6H [facility]; Protocol Last Admin: 04/05/18 09:31 Dose: Not Given Losartan Potassium (Cozaar) 50 mg PO DAILY [facility] Morphine Sulfate (Morphine) 1 mg IVP Q4 PRN PRN Reason: Pain, Mild (1-3) Morphine Sulfate (Morphine) 4 mg IVP Q4 PRN PRN Reason: Pain, moderate (4-7) Ondansetron HCl (Zofran Inj) 4 mg IVP Q6 PRN PRN Reason: Nausea/Vomiting Last Admin: 04/03/18 00:06 Dose: 4 mg Pantoprazole Sodium (Protonix Inj) 40 mg IVP DAILY [facility] Last Admin: 04/05/18 09:18 Dose: 40 mg Sodium Hypochlorite (Dakins Solution 0.25%) 0 ml TOP DAILY [facility] Last Admin: 04/04/18 12:19 Dose: Not Given Ticagrelor (Brilinta) 90 mg PO BID [facility] - Labs Labs: 04/05/18 09:07 04/05/18 09:07 PT 13.7 Seconds (9.8-13.1) H 04/01/18 21:53 INR 1.2 04/01/18 21:53 APTT 32.8 Seconds (25.6-37.1) 04/01/18 21:53 - Constitutional Appears: No Acute Distress, Cachectic, Chronically Ill - Head Exam Head Exam: ATRAUMATIC, NORMAL INSPECTION - Eye Exam Eye Exam: EOMI, Normal appearance - ENT Exam ENT Exam: Mucous Membranes Moist - Neck Exam Neck Exam: Full ROM. absent: Lymphadenopathy, Meningismus - Respiratory Exam Respiratory Exam: NORMAL BREATHING PATTERN. absent: Rhonchi, Wheezes, Respiratory Distress - Cardiovascular Exam Cardiovascular Exam: REGULAR RHYTHM, +S1, +S2 - GI/Abdominal Exam GI & Abdominal Exam: Guarding, Soft, Tenderness (tender even on soft palpation.). absent: Distended, Rigid, Normal Bowel Sounds (no BS on left lower quadrant. BS minimally noticed on rigth side and epigastric area. ) - Extremities Exam Extremities Exam: absent: Calf Tenderness, Joint Swelling, Normal Inspection (Ri ght AKA. Left 1st toe amputation in clean and dry dressing. ), Pedal Edema Assessment and Plan - Assessment and Plan (Free Text) Assessment: 62 yo with a PMHx of HTN, peripheral vascular disease, uncontrolled diabetes m ellitus (not in insulin as pt not agreeable), right AKA, cholecystectomy?, unknown abdominal procedure/surgery?, admitted due to partial SBO. PLAN: >Small Bowel Obstruction --Afebrile, tachycardic this morning due to pain most likely. --POD #1. S/P "exploratory laparoscopy with extensive lysis of adhesion, conversion to laparotomy with resection of small bowel perforation with primary anastomosis." --General Surgery on board, Dr. López. --Maintain NPO, IV LR's at 150cc/hr, --Will start TPN as per Gen Surgery. --Zofran PRN, Pantoprazole IVP daily. --Pain control w/ morphine and DIlauid PRN --F/U symptoms --Monitor I and O's >Cachexia -Evident on physical exam -Pt reports significant weight loss in past 3 months -Atrophic changes of pancreatic tail and body, mild to mod dilation of main panc reatic duct, fullness and enlargement of pancreatic head, without definite evidence of discrete mass lesion on CT and MRCP --Will start TPN as per Gen Surgery. >Uncontrolled Diabetes Mellitus, type 2 --HbA1c 15.4 on 03/25/18. --Insuin sliding scale. --Poor adherence to meds, refusing insulin due to fear of needles. >Hypo Mg --Serum Mg 1.6-borderline low --Consider MgSO4 replacement. >Hypertension --Chronic, wnl today --Considering IV medication if BP elevates. --NPO >PVD, L Foot ulcer --Chronic --Podiatry on board, Dr Pham. --NPO >Thrombocytosis --Chronic, platelets 586 --continue to monitor >Anemia --HG 11.0 --Stool occult blood- negative 10/11/17 --Continue to monitor >DVT prophylaxis - Lovenox Case discussed with Dr. Frankie Hernández PGY-2
[2018-04-05] MEDS ORDERED: Magnesium Sulfate 2 gm/50 ml 2 GM/50 ML BAG IVPB ONE (14:45)
[2018-04-05] MEDS: Potassium Chloride 20 mEq 100 ML IVPB SCH (15:08)
[2018-04-05] MEDS ORDERED: Lidocaine 1% Inj (20ml) IJ ONE (16:10)
[2018-04-05] MEDS: Dakin's Topical 0.25%-Half Strength (480 ml) TOP SCH (16:56)
[2018-04-05] MEDS: Enoxaparin 40 mg Syringe SC SCH (17:11)
[2018-04-06] MEDS: Insulin Lispro (humaLOG) 100 Units/ml Inj SC SCH ×5 (00:19→23:35)
[2018-04-06] MEDS: Piperacillin/Tazobact 3.375 GM in Sodium Chloride 0.9% 100 ML IVPB SCH ×4 (04:53→21:38)
[2018-04-06 05:54] LABS: HEMOGLOBIN 9.5 g/dL (12.0-18.0); MEAN CELL VOLUME 86.9 fl (80.0-94.0); MEAN CORPUSCULAR HEMOGLOBIN 29.2 pg (27.0-31.0); MEAN CORPUSCULAR HGB CONC 33.5 g/dL (33.0-37.0); RBC 3.25 Mil/uL (4.40-5.90); RED CELL DISTRIBUTION WIDTH 16.5 % (11.5-14.5); WHITE BLOOD COUNT 8.3 K/uL (4.8-10.8)
[2018-04-06 06:11] LABS: ALBUMIN 2.7 g/dL (3.5-5.0); ALT/SGPT 33 U/L (21-72); AST/SGOT 30 U/L (17-59); BLOOD UREA NITROGEN 28 mg/dl (9-20); CALCIUM 8.6 mg/dL (8.4-10.2); GFR NON-AFRICAN AMERICAN > 60
[2018-04-06] MEDS ORDERED: Potassium Phosphate 30 MMOLE in Sodium Chloride 0.9% 250 ML IV ONE (07:00)
--- NOTE | 2018-04-06 07:42 | CP.PCM.PN ---
Subjective - Date & Time of Evaluation Date of Evaluation: 04/06/18 Time of Evaluation: 07:40 - Subjective Subjective: Surgery progress note - Dr. López Patient seen and examined at bedside this AM. Resting comfortably, in no acute distress. s/p Lap converted to open small bowel resection pod#2. Pain around incision site, well controlled w/ current pain medications. Remains NPO, NGT in place with minimal output since surgery. Colmenares in place w/ 500cc overnight, 900cc over 24hours, clear urine. On IVAbx. Afebrile overnight. Objective - Vital Signs/Intake and Output Vital Signs (last 24 hours): Temp Pulse Resp BP Pulse Ox 97.4 F L 98 H 20 108/62 98 04/06/18 05:30 04/06/18 05:30 04/06/18 05:30 04/06/18 05:30 04/06/18 05:30 - Medications Medications: Current Medications Atorvastatin Calcium (Lipitor) 40 mg PO DAILY [facility] Carvedilol (Coreg) 25 mg PO Q12 [facility] Last Admin: 04/05/18 22:12 Dose: 25 mg Cilostazol (Pletal) 100 mg PO BID [facility] Enoxaparin Sodium (Lovenox) 40 mg SC DAILY [facility]; Protocol Last Admin: 04/05/18 17:11 Dose: 40 mg Gabapentin (Neurontin) 300 mg PO HS [facility] Hydromorphone HCl (Dilaudid) 1 mg IVP Q4 PRN PRN Reason: Pain, severe (8-10) Last Admin: 04/06/18 02:33 Dose: 1 mg Lactated Ringer's (Lactated Ringer's) 1,000 mls @ 1,000 mls/hr IV .Q1H [facility] Last Admin: 04/05/18 01:08 Dose: 1,000 mls/hr Lactated Ringer's (Lactated Ringer's) 1,000 mls @ 999 mls/hr IV .Q1H1M [facility] Amino Acids (Clinimix 4.25/5 % "E" (1000 Ml)) 1,000 mls @ 82 mls/hr IV .[id number] ONE Stop: 04/06/18 15:41 Last Admin: 04/06/18 03:30 Dose: Not Given Piperacillin Sod/Tazobactam (Sod 3.375 gm/ Sodium Chloride) 100 mls @ 100 mls/hr IVPB 0400,1000,1600,2200 [facility]; Protocol Last Admin: 04/06/18 04:53 Dose: 100 mls/hr Lactated Ringer's (Lactated Ringer's) 1,000 mls @ 50 mls/hr IV .Q20H [facility] Last Admin: 04/05/18 22:56 Dose: Not Given Potassium Phosphate 30 mmole/ (Sodium Chloride) 260 mls @ 32.5 mls/hr IV ONCE ONE Stop: 04/06/18 14:59 Insulin Human Lispro (Humalog) 0 units SC Q6H [facility]; Protocol Last Admin: 04/06/18 00:19 Dose: Not Given Losartan Potassium (Cozaar) 50 mg PO DAILY [facility] Morphine Sulfate (Morphine) 1 mg IVP Q4 PRN PRN Reason: Pain, Mild (1-3) Morphine Sulfate (Morphine) 4 mg IVP Q4 PRN PRN Reason: Pain, moderate (4-7) Ondansetron HCl (Zofran Inj) 4 mg IVP Q6 PRN PRN Reason: Nausea/Vomiting Last Admin: 04/03/18 00:06 Dose: 4 mg Pantoprazole Sodium (Protonix Inj) 40 mg IVP DAILY [facility] Last Admin: 04/05/18 09:18 Dose: 40 mg Sodium Hypochlorite (Dakins Solution 0.25%) 0 ml TOP DAILY [facility] Last Admin: 04/05/18 16:56 Dose: Not Given Ticagrelor (Brilinta) 90 mg PO BID [facility] - Labs Labs: 04/06/18 04:36 04/06/18 04:36 PT 13.7 Seconds (9.8-13.1) H 04/01/18 21:53 INR 1.2 04/01/18 21:53 APTT 32.8 Seconds (25.6-37.1) 04/01/18 21:53 - Constitutional Appears: Non-toxic - Head Exam Head Exam: ATRAUMATIC - Eye Exam Eye Exam: EOMI. absent: Scleral icterus - ENT Exam ENT Exam: Mucous Membranes Dry - Respiratory Exam Respiratory Exam: NORMAL BREATHING PATTERN. absent: Accessory Muscle Use - GI/Abdominal Exam GI & Abdominal Exam: Soft, Tenderness (tenderness around incision site). absent: Distended, Firm, Guarding, Rigid Additional comments: Colmenares in place, making clear urine - Extremities Exam Additional comments: R BKA, left foot dressing clean, dry, and intact - Neurological Exam Neurological Exam: Alert, Awake, Oriented x3 - Psychiatric Exam Psychiatric exam: Normal Affect, Normal Mood - Skin Skin Exam: Intact, Warm Assessment and Plan - Assessment and Plan (Free Text) Assessment: 62M w/ small bowel obstruction s/p laparoscopic converted to open exploratory laparotomy, w/ small bowel resection and abdominal washout POD#2 Plan: - Pain control PRN - restart pt on BetaBlocker; can clamp NGT when admin - NPO w/ mouth swabs - NGT to low intermittent suction - D/c colmenares - TPN - IVF/Abx - DVT ppx - further recs per Dr. Maribel Angeles PGY1
[2018-04-06] MEDS: Enoxaparin 40 mg Syringe SC SCH (09:21)
[2018-04-06] MEDS: Dakin's Topical 0.25%-Half Strength (480 ml) TOP SCH (09:40)
--- NOTE | 2018-04-06 10:32 | CP.PCM.PN ---
<Dane Hernández - Last Filed: 04/06/18 11:22> Subjective - Date & Time of Evaluation Date of Evaluation: 04/06/18 Time of Evaluation: 09:35 - Subjective Subjective: 62 y/o M was seen and examined by bedside. Pt reports that abdominal pain has improved, no pain at interview. Pt reports some moving in her intestine but unable to pass gases. No BM. Pt denies nausea, vomiting, chest pain, SOB. Pt has NGT in place, 750cc collected on container. Blackwell in place, pt reports severe penile pain only when he tries to urinate through the Blackwell. Pt afebrile with NO acute events overnight. Objective - Vital Signs/Intake and Output Vital Signs (last 24 hours): Temp Pulse Resp BP Pulse Ox 98.1 F 97 H 20 102/63 98 04/06/18 08:17 04/06/18 09:14 04/06/18 08:17 04/06/18 09:14 04/06/18 08:17 Intake and Output: 04/06/18 04/06/18 06:59 18:59 Intake Total 1420 Output Total 675 Balance 745 - Medications Medications: Current Medications Atorvastatin Calcium (Lipitor) 40 mg PO DAILY [facility] Carvedilol (Coreg) 25 mg PO Q12 [facility] Last Admin: 04/06/18 09:14 Dose: 25 mg Cilostazol (Pletal) 100 mg PO BID [facility] Enoxaparin Sodium (Lovenox) 40 mg SC DAILY [facility]; Protocol Last Admin: 04/06/18 09:21 Dose: 40 mg Gabapentin (Neurontin) 300 mg PO HS [facility] Hydromorphone HCl (Dilaudid) 1 mg IVP Q4 PRN PRN Reason: Pain, severe (8-10) Last Admin: 04/06/18 09:15 Dose: 1 mg Lactated Ringer's (Lactated Ringer's) 1,000 mls @ 1,000 mls/hr IV .Q1H [facility] Last Admin: 04/05/18 01:08 Dose: 1,000 mls/hr Lactated Ringer's (Lactated Ringer's) 1,000 mls @ 999 mls/hr IV .Q1H1M [facility] Amino Acids (Clinimix 4.25/5 % "E" (1000 Ml)) 1,000 mls @ 82 mls/hr IV .[id number] ONE Stop: 04/06/18 15:41 Last Admin: 04/06/18 10:08 Dose: 82 mls/hr Piperacillin Sod/Tazobactam (Sod 3.375 gm/ Sodium Chloride) 100 mls @ 100 mls/hr IVPB 0400,1000,1600,2200 [facility]; Protocol Last Admin: 04/06/18 09:36 Dose: 100 mls/hr Lactated Ringer's (Lactated Ringer's) 1,000 mls @ 50 mls/hr IV .Q20H [facility] Last Admin: 04/05/18 22:56 Dose: Not Given Potassium Phosphate 30 mmole/ (Sodium Chloride) 260 mls @ 32.5 mls/hr IV ONCE ONE Stop: 04/06/18 14:59 Last Admin: 04/06/18 09:37 Dose: 32.5 mls/hr Insulin Human Lispro (Humalog) 0 units SC Q6H [facility]; Protocol Last Admin: 04/06/18 09:19 Dose: 3 unit Losartan Potassium (Cozaar) 50 mg PO DAILY [facility] Morphine Sulfate (Morphine) 1 mg IVP Q4 PRN PRN Reason: Pain, Mild (1-3) Morphine Sulfate (Morphine) 4 mg IVP Q4 PRN PRN Reason: Pain, moderate (4-7) Ondansetron HCl (Zofran Inj) 4 mg IVP Q6 PRN PRN Reason: Nausea/Vomiting Last Admin: 04/03/18 00:06 Dose: 4 mg Pantoprazole Sodium (Protonix Inj) 40 mg IVP DAILY [facility] Last Admin: 04/06/18 09:13 Dose: 40 mg Sodium Hypochlorite (Dakins Solution 0.25%) 0 ml TOP DAILY [facility] Last Admin: 04/06/18 09:40 Dose: Not Given Ticagrelor (Brilinta) 90 mg PO BID [facility] - Labs Labs: 04/06/18 04:36 04/06/18 04:36 PT 13.7 Seconds (9.8-13.1) H 04/01/18 21:53 INR 1.2 04/01/18 21:53 APTT 32.8 Seconds (25.6-37.1) 04/01/18 21:53 - Constitutional Appears: No Acute Distress - Head Exam Head Exam: ATRAUMATIC, NORMAL INSPECTION - Eye Exam Eye Exam: EOMI - ENT Exam ENT Exam: Mucous Membranes Moist - Neck Exam Neck Exam: Full ROM, Normal Inspection - Respiratory Exam Respiratory Exam: NORMAL BREATHING PATTERN. absent: Rhonchi, Wheezes, Respiratory Distress - Cardiovascular Exam Cardiovascular Exam: REGULAR RHYTHM, +S1, +S2 - GI/Abdominal Exam GI & Abdominal Exam: Guarding, Soft, Tenderness (diffuse). absent: Normal Bowel Sounds - Rectal Exam Additional comments: presence of possible hypoactive bowel sounds. - Extremities Exam Extremities Exam: Full ROM. absent: Pedal Edema Additional comments: absent: Calf Tenderness, Joint Swelling, Normal Inspection (Right AKA. Left 1st toe amputation in clean and dry dressing. ) - Neurological Exam Neurological Exam: Alert, Awake Assessment and Plan - Assessment and Plan (Free Text) Assessment: 62 yo with a PMHx of HTN, peripheral vascular disease, uncontrolled diabetes jose litus (not in insulin as pt not agreeable), right AKA, cholecystectomy?, unknown abdominal procedure/surgery?, admitted due to partial SBO. --S/P "exploratory laparoscopy with extensive lysis of adhesion, conversion to laparotomy with resection of small bowel perforation with primary anastomosis." on 04/04/18. PLAN: >Small Bowel Obstruction --Afebrile, HR is decreasing. --POD #2. --General Surgery on board, Dr. López. --Maintain NGT in place to slow intermittent suction --Maintain NPO, IV LR's at 50cc/hr, --TPN as per Gen Surgery. --Zofran PRN, Pantoprazole IVP daily. --Pain control w/ morphine and Dilauid PRN --F/U symptoms --Monitor I and O's >Penile Pain --Most likely traumatic from Folety's catheter --D/C Blackwell's catheter >Chronic normocytic anemia --Stable, POD 2. --F/U CBC. >Cachexia -Evident on physical exam -Pt reports significant weight loss in past 3 months -Atrophic changes of pancreatic tail and body, mild to mod dilation of main pancreatic duct, fullness and enlargement of pancreatic head, without definite evidence of discrete mass lesion on CT and MRCP --Will start TPN as per Gen Surgery. >Uncontrolled Diabetes Mellitus, type 2 --HbA1c 15.4 on 03/25/18. --Insuin sliding scale. --Poor adherence to meds, refusing insulin due to fear of needles. >Hypo Mg and Hypophosphatemia --Serum phos 2.4, phosphate replaced. --Stable, WNL today, Serum Mg 2.0-wnl --Monitor electrolytes and replace >Hypertension --Chronic, wnl today --Considering IV Vasotec if BP elevates. --PO meds on hold as per NPO >PVD, L Foot ulcer --Chronic --Podiatry on board, Dr Pham. --PO meds on hold as per NPO, will consider re-initiate PO Brilinta >Thrombocytosis --Chronic, platelets trending down, today 438-high --continue to monitor >Anemia --HG 11.0 --Stool occult blood- negative 10/11/17 --Continue to monitor >DVT prophylaxis - Lovenox Case discussed with Marybeth Esparza PGY-2 <Marybeth Roman - Last Filed: 04/07/18 11:29> Objective - Vital Signs/Intake and Output Vital Signs (last 24 hours): Temp Pulse Resp BP Pulse Ox 98.1 F 92 H 19 112/63 99 04/07/18 08:06 04/07/18 08:06 04/07/18 08:06 04/07/18 08:06 04/07/18 08:06 Intake and Output: 04/07/18 04/07/18 06:59 18:59 Intake Total 2972 Output Total 2025 Balance 947 - Medications Medications: Current Medications Atorvastatin Calcium (Lipitor) 40 mg PO DAILY [facility] Carvedilol (Coreg) 25 mg PO Q12 [facility] Last Admin: 04/06/18 21:37 Dose: 25 mg Cilostazol (Pletal) 100 mg PO BID [facility] Enoxaparin Sodium (Lovenox) 40 mg SC DAILY [facility]; Protocol Last Admin: 04/07/18 08:45 Dose: 40 mg Gabapentin (Neurontin) 300 mg PO HS [facility] Hydromorphone HCl (Dilaudid) 1 mg IVP Q4 PRN PRN Reason: Pain, severe (8-10) Last Admin: 04/07/18 08:50 Dose: 1 mg Piperacillin Sod/Tazobactam (Sod 3.375 gm/ Sodium Chloride) 100 mls @ 100 mls/hr IVPB 0400,1000,1600,2200 [facility]; Protocol Last Admin: 04/07/18 08:59 Dose: 100 mls/hr Lactated Ringer's (Lactated Ringer's) 1,000 mls @ 50 mls/hr IV .Q20H [facility] Last Admin: 04/07/18 08:46 Dose: 50 mls/hr Sodium Chloride 18 meq/ Sodium Phosphate 10 mmole/ Potassium Chloride 15 meq/ Potassium Phosphate 2.5 mmole/ Magnesium Sulfate 2.5 meq/ Calcium Gluconate 2 meq/ Insulin Human Regular 2 units/ Amino Acids 1,021.1033 mls @ 82 mls/hr IV .[id number] ONE Stop: 04/07/18 16:27 Last Admin: 04/07/18 04:37 Dose: 82 mls/hr Insulin Human Lispro (Humalog) 0 units SC Q6H [facility]; Protocol Last Admin: 04/07/18 05:45 Dose: 3 units Losartan Potassium (Cozaar) 50 mg PO DAILY [facility] Morphine Sulfate (Morphine) 1 mg IVP Q4 PRN PRN Reason: Pain, Mild (1-3) Morphine Sulfate (Morphine) 4 mg IVP Q4 PRN PRN Reason: Pain, moderate (4-7) Ondansetron HCl (Zofran Inj) 4 mg IVP Q6 PRN PRN Reason: Nausea/Vomiting Last Admin: 04/03/18 00:06 Dose: 4 mg Pantoprazole Sodium (Protonix Inj) 40 mg IVP DAILY [facility] Last Admin: 04/07/18 08:44 Dose: 40 mg Sodium Hypochlorite (Dakins Solution 0.25%) 0 ml TOP DAILY [facility] Last Admin: 04/06/18 09:40 Dose: Not Given Ticagrelor (Brilinta) 90 mg PO BID [facility] - Labs Labs: 04/07/18 06:10 04/07/18 06:10 PT 13.7 Seconds (9.8-13.1) H 04/01/18 21:53 INR 1.2 04/01/18 21:53 APTT 32.8 Seconds (25.6-37.1) 04/01/18 21:53 Attending/Attestation - Attestation I have personally seen and examined this patient.: Yes I have fully participated in the care of the patient.: Yes I have reviewed all pertinent clinical information, including history, physical exam and plan: Yes Notes (Text): 04/07/18 11:29 agree with findings and plan as above.
[2018-04-06] MEDS ORDERED: [UNRECOGNIZED DRUG - OTHER] IV ONE ×2 (14:00→15:15)
[2018-04-06] MEDS ORDERED: SODIUM PHOSPHATE IV ONE ×2 (14:00→15:15)
[2018-04-06] MEDS ORDERED: POTASSIUM CHLORIDE IV ONE ×2 (14:00→15:15)
[2018-04-06] MEDS ORDERED: SODIUM CHLORIDE IV ONE ×2 (14:00→15:15)
--- NOTE | 2018-04-06 15:12 | CP.PCM.PN ---
Subjective - Date & Time of Evaluation Date of Evaluation: 04/06/18 Time of Evaluation: 15:09 - Subjective Subjective: Podiatry progress note - Dr. Pham 62 y/o male seen and evaluated at bedside this AM. Resting comfortably. NG tube in place. Reports mild pain to left foot that has improved since admission. Denies n/v/f/c/sob/cp and has no other acute complaints. Patient would like his nails cut left foot Objective - Vital Signs/Intake and Output Vital Signs (last 24 hours): Temp Pulse Resp BP Pulse Ox 98.1 F 97 H 20 102/63 98 04/06/18 08:17 04/06/18 09:14 04/06/18 08:17 04/06/18 09:14 04/06/18 08:17 Intake and Output: 04/06/18 04/06/18 06:59 18:59 Intake Total 1420 Output Total 675 Balance 745 - Medications Medications: Current Medications Atorvastatin Calcium (Lipitor) 40 mg PO DAILY [facility] Carvedilol (Coreg) 25 mg PO Q12 [facility] Last Admin: 04/06/18 09:14 Dose: 25 mg Cilostazol (Pletal) 100 mg PO BID [facility] Enoxaparin Sodium (Lovenox) 40 mg SC DAILY [facility]; Protocol Last Admin: 04/06/18 09:21 Dose: 40 mg Gabapentin (Neurontin) 300 mg PO HS [facility] Hydromorphone HCl (Dilaudid) 1 mg IVP Q4 PRN PRN Reason: Pain, severe (8-10) Last Admin: 04/06/18 09:15 Dose: 1 mg Lactated Ringer's (Lactated Ringer's) 1,000 mls @ 1,000 mls/hr IV .Q1H [facility] Last Admin: 04/05/18 01:08 Dose: 1,000 mls/hr Lactated Ringer's (Lactated Ringer's) 1,000 mls @ 999 mls/hr IV .Q1H1M [facility] Amino Acids (Clinimix 4.25/5 % "E" (1000 Ml)) 1,000 mls @ 82 mls/hr IV .[id number] ONE Stop: 04/06/18 15:41 Last Admin: 04/06/18 10:08 Dose: 82 mls/hr Piperacillin Sod/Tazobactam (Sod 3.375 gm/ Sodium Chloride) 100 mls @ 100 mls/hr IVPB 0400,1000,1600,2200 [facility]; Protocol Last Admin: 04/06/18 09:36 Dose: 100 mls/hr Lactated Ringer's (Lactated Ringer's) 1,000 mls @ 50 mls/hr IV .Q20H [facility] Last Admin: 04/05/18 22:56 Dose: Not Given Sodium Chloride 18 meq/ Sodium Phosphate 10 mmole/ Potassium Chloride 15 meq/ Potassium Phosphate 2.5 mmole/ Magnesium Sulfate 2.5 meq/ Calcium Gluconate 2 meq/ Insulin Human Regular 2 units/Multivitamins/Vitamin C 10 ml/Chromium/Copper/Manganese/Zinc 3 ml/ Amino Acids 1,034.1033 mls @ 82 mls/hr IV .[id number] ONE Stop: 04/07/18 03:51 Insulin Human Lispro (Humalog) 0 units SC Q6H [facility]; Protocol Last Admin: 04/06/18 13:45 Dose: 4 units Losartan Potassium (Cozaar) 50 mg PO DAILY [facility] Morphine Sulfate (Morphine) 1 mg IVP Q4 PRN PRN Reason: Pain, Mild (1-3) Morphine Sulfate (Morphine) 4 mg IVP Q4 PRN PRN Reason: Pain, moderate (4-7) Ondansetron HCl (Zofran Inj) 4 mg IVP Q6 PRN PRN Reason: Nausea/Vomiting Last Admin: 04/03/18 00:06 Dose: 4 mg Pantoprazole Sodium (Protonix Inj) 40 mg IVP DAILY [facility] Last Admin: 04/06/18 09:13 Dose: 40 mg Sodium Hypochlorite (Dakins Solution 0.25%) 0 ml TOP DAILY [facility] Last Admin: 04/06/18 09:40 Dose: Not Given Ticagrelor (Brilinta) 90 mg PO BID [facility] - Labs Labs: 04/06/18 04:36 04/06/18 04:36 PT 13.7 Seconds (9.8-13.1) H 04/01/18 21:53 INR 1.2 04/01/18 21:53 APTT 32.8 Seconds (25.6-37.1) 04/01/18 21:53 - Constitutional Appears: Well, Non-toxic, No Acute Distress - Head Exam Head Exam: ATRAUMATIC, NORMOCEPHALIC - Extremities Exam Additional comments: LLE focused exam: Vascular: DP non-palpable PT nonpalpable, TG warm to cool, no evidence of edema Ortho: Right AKA, pain to the left ulcer site Neuro: gross sensation intact, protective sensation diminished Derm: arterial nonhealing ulcer noted to the left first ray with 10% fibrotic and 60% granular base aand 20% necrotic borders, malodor noted, no active drainage, no fluctuance, no erythema, no tunneling or tracking, no probe to bone - Neurological Exam Neurological Exam: Alert, Awake, Oriented x3 - Psychiatric Exam Psychiatric exam: Normal Affect, Normal Mood Assessment and Plan - Assessment and Plan (Free Text) Assessment: 62M with left foot nonhealing hallux ulcer Plan: Patient seen and evaluated Discussed in detail with Dr. Pham Chart, labs and vitals reviewed- afebrile, absent leukocytosis Wound cleansed with sterile saline and dressed with dakins and DSD X-ray left foot - irregular navicular, normal post amputation site Ordered Vascular consult Podiatry would like to take patient to OR for wound debridement when patient medically stable Ordered Vascular consult to be evaluated by Dr. stevenson
--- NOTE | 2018-04-06 17:58 | PQF ---
PROVIDER RESPONSE TEXT: Diagnosis: -Uncontrolled DM with hyperglycemia. -->Pt declining Insulin therapy. REVIEWER QUERY TEXT: Diabetic Associated Manifestations Please further specify Uncontrolled DM: Such as: ---DM with Hyperglycemia -- Other, please specify Random glucose: 401->260->163->165->189->231->241 POC:[id number]->273->326->154---- 04/05 progress note includes; Uncontrolled Diabetes Mellitus, type 2 --HbA1c 15.4 on 03/25/18. The patient's Clinical Indicators include: --- Query created by: Charlene Hidalgo on 04/06/2018 7:50 AM Electronically signed by: Dane Hernández 04/06/2018 5:55 PM
[2018-04-06] MEDS ORDERED: Sodium Chloride 0.9% 500 ML IV ONE (18:23)
[2018-04-06] MEDS: Lactated Ringer's 1,000 ML IV SCH ×2 (19:41→21:50)
[2018-04-06] MEDS ORDERED: Acetylcysteine 10% 4 ML IH ONE (22:00)
[2018-04-06] MEDS ORDERED: Albuterol 0.042% Inhal Sol (1.25 mg/3 mL) UD INH ONE (22:47)
--- NOTE | 2018-04-07 02:45 | CP.PCM.PCO ---
Assessment & Plan - Assessment and Plan (Free Text) Assessment: Called by RN as pt was complaining of SOB for the past 2 hours. Stated he drank an 8 ounce bottle of water 4 hours prior and since then has been feeling congested in his lungs and dyspnic. Has been coughing up clear thick mucuous. States he has not been using his incentive spirometry and has remained mostly bed bound. Vitals stable, O2 sat 98 on 2L NC. Pt appears comfortable,able to speak in full sentences; no use of accessory muscles. Scattered rhonchi noted on lung exam with poor air entry BL. Will promote pulmonary hygiene: -Incentive Spirometry -Chest PT -Avoid Narcotics as it inhibits breathing -Encouarge OOB and PT paticipation -Albuterol x2 w/ mucolytic tx -Suction if needed -Chest portable Pt re-evaluate after receiving treatment, stated he felt better. Crxray no acute findings on my read (pending final)
[2018-04-07] MEDS ORDERED: [UNRECOGNIZED DRUG - OTHER] IV ONE ×2 (04:00→15:30)
[2018-04-07] MEDS ORDERED: SODIUM CHLORIDE IV ONE ×2 (04:00→15:30)
[2018-04-07] MEDS ORDERED: POTASSIUM CHLORIDE IV ONE ×2 (04:00→15:30)
[2018-04-07] MEDS ORDERED: SODIUM PHOSPHATE IV ONE ×2 (04:00→15:30)
[2018-04-07] MEDS: Piperacillin/Tazobact 3.375 GM in Sodium Chloride 0.9% 100 ML IVPB SCH ×4 (04:20→22:38)
[2018-04-07] MEDS: Insulin Lispro (humaLOG) 100 Units/ml Inj SC SCH ×4 (05:45→22:35)
[2018-04-07 06:46] LABS: HEMOGLOBIN 9.5 g/dL (12.0-18.0); MEAN CELL VOLUME 86.8 fl (80.0-94.0); MEAN CORPUSCULAR HEMOGLOBIN 29.1 pg (27.0-31.0); MEAN CORPUSCULAR HGB CONC 33.6 g/dL (33.0-37.0); RBC 3.26 Mil/uL (4.40-5.90); RED CELL DISTRIBUTION WIDTH 16.9 % (11.5-14.5); WHITE BLOOD COUNT 10.1 K/uL (4.8-10.8)
[2018-04-07 07:19] LABS: ALB/GLOB RATIO 0.9 (1.0-2.1); ALBUMIN 2.7 g/dL (3.5-5.0); ALT/SGPT 24 U/L (21-72); AST/SGOT 28 U/L (17-59); BLOOD UREA NITROGEN 32 mg/dl (9-20); CALCIUM 8.4 mg/dL (8.4-10.2); GFR NON-AFRICAN AMERICAN > 60
[2018-04-07] MEDS: Enoxaparin 40 mg Syringe SC SCH (08:45)
[2018-04-07] MEDS: Lactated Ringer's 1,000 ML IV SCH ×2 (08:46→20:05)
[2018-04-07] MEDS ORDERED: Iodixanol 320 MG/ML 100 ML BOTTLE IV ONE (10:08)
[2018-04-07] MEDS ORDERED: Iodixanol 320 mg/ml 50 ml Sol IV ONE (10:08)
--- NOTE | 2018-04-07 10:33 | CP.PCM.PN ---
Subjective - Date & Time of Evaluation Date of Evaluation: 04/07/18 Time of Evaluation: 10:29 - Subjective Subjective: Podiatry progress note - Dr. Pham 62 y/o male seen and evaluated at bedside this AM. Resting comfortably. NG tube in place. Reports mild pain to left foot that has improved since admission. Denies n/v/f/c/sob/cp and has no other acute complaints. Patient would like his nails cut left foot Objective - Vital Signs/Intake and Output Vital Signs (last 24 hours): Temp Pulse Resp BP Pulse Ox 98.1 F 92 H 19 112/63 99 04/07/18 08:06 04/07/18 08:06 04/07/18 08:06 04/07/18 08:06 04/07/18 08:06 Intake and Output: 04/07/18 04/07/18 06:59 18:59 Intake Total 2972 Output Total 2025 Balance 947 - Medications Medications: Current Medications Atorvastatin Calcium (Lipitor) 40 mg PO DAILY [facility] Carvedilol (Coreg) 25 mg PO Q12 [facility] Last Admin: 04/06/18 21:37 Dose: 25 mg Cilostazol (Pletal) 100 mg PO BID [facility] Enoxaparin Sodium (Lovenox) 40 mg SC DAILY [facility]; Protocol Last Admin: 04/07/18 08:45 Dose: 40 mg Gabapentin (Neurontin) 300 mg PO HS [facility] Hydromorphone HCl (Dilaudid) 1 mg IVP Q4 PRN PRN Reason: Pain, severe (8-10) Last Admin: 04/07/18 08:50 Dose: 1 mg Piperacillin Sod/Tazobactam (Sod 3.375 gm/ Sodium Chloride) 100 mls @ 100 mls/hr IVPB 0400,1000,1600,2200 [facility]; Protocol Last Admin: 04/07/18 08:59 Dose: 100 mls/hr Lactated Ringer's (Lactated Ringer's) 1,000 mls @ 50 mls/hr IV .Q20H [facility] Last Admin: 04/07/18 08:46 Dose: 50 mls/hr Sodium Chloride 18 meq/ Sodium Phosphate 10 mmole/ Potassium Chloride 15 meq/ Potassium Phosphate 2.5 mmole/ Magnesium Sulfate 2.5 meq/ Calcium Gluconate 2 meq/ Insulin Human Regular 2 units/ Amino Acids 1,021.1033 mls @ 82 mls/hr IV .[id number] ONE Stop: 04/07/18 16:27 Last Admin: 04/07/18 04:37 Dose: 82 mls/hr Insulin Human Lispro (Humalog) 0 units SC Q6H [facility]; Protocol Last Admin: 04/07/18 05:45 Dose: 3 units Losartan Potassium (Cozaar) 50 mg PO DAILY [facility] Morphine Sulfate (Morphine) 1 mg IVP Q4 PRN PRN Reason: Pain, Mild (1-3) Morphine Sulfate (Morphine) 4 mg IVP Q4 PRN PRN Reason: Pain, moderate (4-7) Ondansetron HCl (Zofran Inj) 4 mg IVP Q6 PRN PRN Reason: Nausea/Vomiting Last Admin: 04/03/18 00:06 Dose: 4 mg Pantoprazole Sodium (Protonix Inj) 40 mg IVP DAILY [facility] Last Admin: 04/07/18 08:44 Dose: 40 mg Sodium Hypochlorite (Dakins Solution 0.25%) 0 ml TOP DAILY [facility] Last Admin: 04/06/18 09:40 Dose: Not Given Ticagrelor (Brilinta) 90 mg PO BID [facility] - Labs Labs: 04/07/18 06:10 04/07/18 06:10 PT 13.7 Seconds (9.8-13.1) H 04/01/18 21:53 INR 1.2 04/01/18 21:53 APTT 32.8 Seconds (25.6-37.1) 04/01/18 21:53 - Constitutional Appears: Well, Non-toxic, No Acute Distress - Head Exam Head Exam: ATRAUMATIC, NORMOCEPHALIC - Extremities Exam Additional comments: LLE focused exam: Vascular: DP non-palpable PT nonpalpable, TG warm to cool, no evidence of edema Ortho: Right AKA, pain to the left ulcer site Neuro: gross sensation intact, protective sensation diminished Derm: arterial nonhealing ulcer noted to the left first ray with 10% fibrotic and 60% granular base aand 20% necrotic borders, malodor noted, no active drainage, no fluctuance, no erythema, no tunneling or tracking, no probe to bone - Neurological Exam Neurological Exam: Alert, Awake, Oriented x3 - Psychiatric Exam Psychiatric exam: Normal Affect, Normal Mood Assessment and Plan - Assessment and Plan (Free Text) Assessment: 62M with left foot nonhealing hallux ulcer Plan: Patient seen and evaluated Discussed in detail with Dr. Pham Chart, labs and vitals reviewed- afebrile, absent leukocytosis Wound cleansed with sterile saline and dressed with dakins and DSD Patient nails debrided with caution, used sterile nail nippers. X-ray left foot - irregular navicular, normal post amputation site Vascular recommendations appreciated- patient sent for CT Angio Podiatry would like to take patient to OR for wound debridement when patient medically stable
--- NOTE | 2018-04-07 11:03 | CP.PCM.PN ---
<Dane Hernández - Last Filed: 04/07/18 10:51> Subjective - Date & Time of Evaluation Date of Evaluation: 04/07/18 Time of Evaluation: 10:00 - Subjective Subjective: 62 y/o M was seen and examined by bedside. Pt reports feeling OK, abdominal pain is under control with medication, still not passing gasses and NO bowel movement . NGT in place, 1,150cc as total output. Penile pain improved after discontinuing colmenares. Cough has improved. Pt reports left foot pain. Pt denies chills, chest pain, SOB, nausea, vomiting. Objective - Vital Signs/Intake and Output Vital Signs (last 24 hours): Temp Pulse Resp BP Pulse Ox 98.1 F 92 H 19 112/63 99 04/07/18 08:06 04/07/18 08:06 04/07/18 08:06 04/07/18 08:06 04/07/18 08:06 Intake and Output: 04/07/18 04/07/18 06:59 18:59 Intake Total 2972 Output Total 2025 Balance 947 - Medications Medications: Current Medications Atorvastatin Calcium (Lipitor) 40 mg PO DAILY [facility] Carvedilol (Coreg) 25 mg PO Q12 [facility] Last Admin: 04/06/18 21:37 Dose: 25 mg Cilostazol (Pletal) 100 mg PO BID [facility] Enoxaparin Sodium (Lovenox) 40 mg SC DAILY [facility]; Protocol Last Admin: 04/07/18 08:45 Dose: 40 mg Gabapentin (Neurontin) 300 mg PO HS [facility] Hydromorphone HCl (Dilaudid) 1 mg IVP Q4 PRN PRN Reason: Pain, severe (8-10) Last Admin: 04/07/18 08:50 Dose: 1 mg Piperacillin Sod/Tazobactam (Sod 3.375 gm/ Sodium Chloride) 100 mls @ 100 mls/hr IVPB 0400,1000,1600,2200 [facility]; Protocol Last Admin: 04/07/18 08:59 Dose: 100 mls/hr Lactated Ringer's (Lactated Ringer's) 1,000 mls @ 50 mls/hr IV .Q20H [facility] Last Admin: 04/07/18 08:46 Dose: 50 mls/hr Sodium Chloride 18 meq/ Sodium Phosphate 10 mmole/ Potassium Chloride 15 meq/ Potassium Phosphate 2.5 mmole/ Magnesium Sulfate 2.5 meq/ Calcium Gluconate 2 meq/ Insulin Human Regular 2 units/ Amino Acids 1,021.1033 mls @ 82 mls/hr IV .[id number] ONE Stop: 04/07/18 16:27 Last Admin: 04/07/18 04:37 Dose: 82 mls/hr Insulin Human Lispro (Humalog) 0 units SC Q6H [facility]; Protocol Last Admin: 04/07/18 05:45 Dose: 3 units Losartan Potassium (Cozaar) 50 mg PO DAILY [facility] Morphine Sulfate (Morphine) 1 mg IVP Q4 PRN PRN Reason: Pain, Mild (1-3) Morphine Sulfate (Morphine) 4 mg IVP Q4 PRN PRN Reason: Pain, moderate (4-7) Ondansetron HCl (Zofran Inj) 4 mg IVP Q6 PRN PRN Reason: Nausea/Vomiting Last Admin: 04/03/18 00:06 Dose: 4 mg Pantoprazole Sodium (Protonix Inj) 40 mg IVP DAILY [facility] Last Admin: 04/07/18 08:44 Dose: 40 mg Sodium Hypochlorite (Dakins Solution 0.25%) 0 ml TOP DAILY [facility] Last Admin: 04/06/18 09:40 Dose: Not Given Ticagrelor (Brilinta) 90 mg PO BID [facility] - Labs Labs: 04/07/18 06:10 04/07/18 06:10 PT 13.7 Seconds (9.8-13.1) H 04/01/18 21:53 INR 1.2 04/01/18 21:53 APTT 32.8 Seconds (25.6-37.1) 04/01/18 21:53 - Constitutional Appears: No Acute Distress - Head Exam Head Exam: ATRAUMATIC, NORMAL INSPECTION - Eye Exam Eye Exam: EOMI - ENT Exam ENT Exam: Mucous Membranes Dry - Neck Exam Neck Exam: Full ROM. absent: Meningismus - Respiratory Exam Respiratory Exam: Decreased Breath Sounds (b/l bases), NORMAL BREATHING PATTERN. absent: Rhonchi, Wheezes - Cardiovascular Exam Cardiovascular Exam: REGULAR RHYTHM, +S1, +S2 - GI/Abdominal Exam GI & Abdominal Exam: Soft. absent: Distended, Rigid Additional comments: presence of bowel sounds more prominent on epigastric and RUQ. - Extremities Exam Additional comments: absent: Calf Tenderness, Joint Swelling, Normal Inspection (Right AKA. Left foot in clean and dry dressing.) - Neurological Exam Neurological Exam: Alert, Awake, Oriented x3 Assessment and Plan - Assessment and Plan (Free Text) Assessment: 62 yo with a PMHx of HTN, peripheral vascular disease, uncontrolled diabetes mellitus (not in insulin as pt not agreeable), right AKA, cholecystectomy?, unknown abdominal procedure/surgery?, admitted due to partial SBO. --S/P "exploratory laparoscopy with extensive lysis of adhesion, conversion to laparotomy with resection of small bowel perforation with primary anastomosis." on 04/04/18. PLAN: >Small Bowel Obstruction --Afebrile, HR is decreasing. --POD #3. --General Surgery on board, Dr. López. --Maintain NGT, slow intermittent suction. NPO, IV LR's at 50cc/hr. --Zofran PRN, Pantoprazole IVP daily. --Pain control w/ morphine and Dilauid PRN --F/U symptoms --Monitor I and O's >PVD, L Foot ulcer --Chronic --Podiatry on board, Dr Pham. --PO meds on hold as per NPO, will consider re-initiate PO Brilinta --Vascular surgery consult as per Podiatry, Dr Hightower. --For CTA of left leg. >Cough --S/P Albuterol x2 --CXR unreamrkable, f/u final report. --Incentive Spirometry --Encouarge OOB and PT paticipation >Penile Pain --Improved after Colmenares c/c'ed >Chronic normocytic anemia --Stable, POD 3. --F/U CBC. >Cachexia -Evident on physical exam -Pt reports significant weight loss in past 3 months -Atrophic changes of pancreatic tail and body, mild to mod dilation of main pancreatic duct, fullness and enlargement of pancreatic head, without definite evidence of discrete mass lesion on CT and MRCP --PICC line in place, if TPN needed. >Uncontrolled Diabetes Mellitus, type 2, with hyperglycemia. --HbA1c 15.4 on 03/25/18. --Non-compliant --Insuin sliding scale. --Refusing insulin due to fear of needles. >Electrolyte derangement --WNL today. --Monitor electrolytes and replace >Hypertension --Chronic, BP wnl today --Considering IV Vasotec if BP elevates. --NPO >Thrombocytosis --Chronic, platelets trending down, today 438-high --continue to monitor >Anemia --HG 11.0 --Stool occult blood- negative 10/11/17 --Continue to monitor >DVT prophylaxis - Lovenox Case discussed with Gema Desir PGY-2 <Gema Patel - Last Filed: 04/07/18 18:47> Objective - Vital Signs/Intake and Output Vital Signs (last 24 hours): Temp Pulse Resp BP Pulse Ox 98.2 F 84 18 101/58 L 100 04/07/18 16:27 04/07/18 16:27 04/07/18 16:27 04/07/18 16:27 04/07/18 16:27 Intake and Output: 04/07/18 04/07/18 06:59 18:59 Intake Total 2972 Output Total 5 Balance 947 - Medications Medications: Current Medications Atorvastatin Calcium (Lipitor) 40 mg PO DAILY [facility] Carvedilol (Coreg) 25 mg PO Q12 [facility] Last Admin: 04/07/18 14:22 Dose: 25 mg Cilostazol (Pletal) 100 mg PO BID [facility] Clotrimazole (Mycelex Sandor) 10 mg MT 5XD [facility] Last Admin: 04/07/18 18:25 Dose: Not Given Enoxaparin Sodium (Lovenox) 40 mg SC DAILY [facility]; Protocol Last Admin: 04/07/18 08:45 Dose: 40 mg Gabapentin (Neurontin) 300 mg PO HS [facility] Hydromorphone HCl (Dilaudid) 1 mg IVP Q4 PRN PRN Reason: Pain, severe (8-10) Last Admin: 04/07/18 08:50 Dose: 1 mg Piperacillin Sod/Tazobactam (Sod 3.375 gm/ Sodium Chloride) 100 mls @ 100 mls/hr IVPB 0400,1000,1600,2200 [facility]; Protocol Last Admin: 04/07/18 16:51 Dose: 100 mls/hr Lactated Ringer's (Lactated Ringer's) 1,000 mls @ 50 mls/hr IV .Q20H [facility] Last Admin: 04/07/18 08:46 Dose: 50 mls/hr Sodium Chloride 18 meq/ Sodium Phosphate 10 mmole/ Potassium Chloride 15 meq/ Potassium Phosphate 2.5 mmole/ Magnesium Sulfate 2.5 meq/ Calcium Gluconate 2 meq/ Multivitamins /Vitamin C 10 ml/ Chromium/Copper/Manganese/Zinc 3 ml/Insulin Human Regular 3 units/Amino Acids 1,034.1133 mls @ 82 mls/hr IV .[id number] ONE Stop: 04/08/18 04:06 Last Admin: 04/07/18 18:13 Dose: 82 mls/hr Potassium Chloride/Dextrose/Sod Cl (Potassium Chl 20 Meq In D5-1/2ns) 1,000 mls @ 500 mls/hr IV .Q2H [facility] Stop: 04/07/18 19:14 Last Admin: 04/07/18 17:23 Dose: 500 mls/hr Sodium Chloride 18 meq/ Sodium Phosphate 10 mmole/ Potassium Chloride 15 meq/ Potassium Phosphate 2.5 mmole/ Magnesium Sulfate 2.5 meq/ Calcium Gluconate 2 meq/ Insulin Human Regular 3 units/ Amino Acids 1,021.1133 mls @ 82 mls/hr IV .[id number] ONE Stop: 04/08/18 17:27 Insulin Human Lispro (Humalog) 0 units SC Q6H [facility]; Protocol Last Admin: 04/07/18 18:11 Dose: Not Given Lidocaine HCl (Lidocaine 2% Viscous) 15 ml PO Q4 PRN PRN Reason: Sore Throat Last Admin: 04/07/18 18:25 Dose: 15 ml Losartan Potassium (Cozaar) 50 mg PO DAILY [facility] Morphine Sulfate (Morphine) 1 mg IVP Q4 PRN PRN Reason: Pain, Mild (1-3) Morphine Sulfate (Morphine) 4 mg IVP Q4 PRN PRN Reason: Pain, moderate (4-7) Ondansetron HCl (Zofran Inj) 4 mg IVP Q6 PRN PRN Reason: Nausea/Vomiting Last Admin: 04/03/18 00:06 Dose: 4 mg Pantoprazole Sodium (Protonix Inj) 40 mg IVP DAILY [facility] Last Admin: 04/07/18 08:44 Dose: 40 mg Sodium Hypochlorite (Dakins Solution 0.25%) 0 ml TOP DAILY [facility] Last Admin: 04/07/18 14:10 Dose: 1 u Ticagrelor (Brilinta) 90 mg PO BID [facility] - Labs Labs: 04/07/18 06:10 04/07/18 06:10 PT 13.7 Seconds (9.8-13.1) H 04/01/18 21:53 INR 1.2 04/01/18 21:53 APTT 32.8 Seconds (25.6-37.1) 04/01/18 21:53 Attending/Attestation - Attestation I have personally seen and examined this patient.: Yes I have fully participated in the care of the patient.: Yes I have reviewed all pertinent clinical information, including history, physical exam and plan: Yes Notes (Text): Ileum Perforation Small Bowel Obstruction s/p Open Laparotomy with adhesioloysis and resection of area of perforated ileum PVD - hx of Right AKA DM type II , very brittle with episodes of Hyperglycemia/Hypoglycemia HTN Anemia of Chronic Dis Chronic L:eft foot ulcer due to PVD - Surgery on case - pt on NGT tube , NPO - cont TPN - cont IV Zosyn - DVT proph - Pain mgt - cont antihypertensives -cont Accucheck with coverage - Podiatry consulted for L foot ulcer, Wound Care
--- NOTE | 2018-04-07 12:08 | CP.PCM.PN ---
Subjective - Date & Time of Evaluation Date of Evaluation: 04/07/18 Time of Evaluation: 11:00 - Subjective Subjective: Surgery progress note for Dr. López Pt seen and examined this AM. Patient reports abdominal pain is better than yesterday, denies any nausea, vomiting, fevers, or chills. Patient reports some dysuria. No flatus or BM. Objective - Vital Signs/Intake and Output Vital Signs (last 24 hours): Temp Pulse Resp BP Pulse Ox 98.1 F 92 H 19 112/63 99 04/07/18 08:06 04/07/18 08:06 04/07/18 08:06 04/07/18 08:06 04/07/18 08:06 Intake and Output: 04/07/18 04/07/18 06:59 18:59 Intake Total 2972 Output Total 2025 Balance 947 - Medications Medications: Current Medications Atorvastatin Calcium (Lipitor) 40 mg PO DAILY [facility] Carvedilol (Coreg) 25 mg PO Q12 [facility] Last Admin: 04/06/18 21:37 Dose: 25 mg Cilostazol (Pletal) 100 mg PO BID [facility] Enoxaparin Sodium (Lovenox) 40 mg SC DAILY [facility]; Protocol Last Admin: 04/07/18 08:45 Dose: 40 mg Gabapentin (Neurontin) 300 mg PO HS [facility] Hydromorphone HCl (Dilaudid) 1 mg IVP Q4 PRN PRN Reason: Pain, severe (8-10) Last Admin: 04/07/18 08:50 Dose: 1 mg Piperacillin Sod/Tazobactam (Sod 3.375 gm/ Sodium Chloride) 100 mls @ 100 mls/hr IVPB 0400,1000,1600,2200 [facility]; Protocol Last Admin: 04/07/18 08:59 Dose: 100 mls/hr Lactated Ringer's (Lactated Ringer's) 1,000 mls @ 50 mls/hr IV .Q20H [facility] Last Admin: 04/07/18 08:46 Dose: 50 mls/hr Sodium Chloride 18 meq/ Sodium Phosphate 10 mmole/ Potassium Chloride 15 meq/ Potassium Phosphate 2.5 mmole/ Magnesium Sulfate 2.5 meq/ Calcium Gluconate 2 meq/ Insulin Human Regular 2 units/ Amino Acids 1,021.1033 mls @ 82 mls/hr IV .[id number] ONE Stop: 04/07/18 16:27 Last Admin: 04/07/18 04:37 Dose: 82 mls/hr Insulin Human Lispro (Humalog) 0 units SC Q6H [facility]; Protocol Last Admin: 04/07/18 05:45 Dose: 3 units Losartan Potassium (Cozaar) 50 mg PO DAILY [facility] Morphine Sulfate (Morphine) 1 mg IVP Q4 PRN PRN Reason: Pain, Mild (1-3) Morphine Sulfate (Morphine) 4 mg IVP Q4 PRN PRN Reason: Pain, moderate (4-7) Ondansetron HCl (Zofran Inj) 4 mg IVP Q6 PRN PRN Reason: Nausea/Vomiting Last Admin: 04/03/18 00:06 Dose: 4 mg Pantoprazole Sodium (Protonix Inj) 40 mg IVP DAILY [facility] Last Admin: 04/07/18 08:44 Dose: 40 mg Sodium Hypochlorite (Dakins Solution 0.25%) 0 ml TOP DAILY [facility] Last Admin: 04/06/18 09:40 Dose: Not Given Ticagrelor (Brilinta) 90 mg PO BID [facility] - Labs Labs: 04/07/18 06:10 04/07/18 06:10 PT 13.7 Seconds (9.8-13.1) H 04/01/18 21:53 INR 1.2 04/01/18 21:53 APTT 32.8 Seconds (25.6-37.1) 04/01/18 21:53 - Constitutional Appears: Well, Non-toxic, No Acute Distress - Head Exam Head Exam: ATRAUMATIC, NORMOCEPHALIC - Eye Exam Eye Exam: Normal appearance. absent: Conjunctival injection, Scleral icterus - ENT Exam ENT Exam: Mucous Membranes Moist, Normal Oropharynx - Respiratory Exam Respiratory Exam: NORMAL BREATHING PATTERN. absent: Accessory Muscle Use, Respiratory Distress - Cardiovascular Exam Cardiovascular Exam: RRR - GI/Abdominal Exam GI & Abdominal Exam: Soft, Tenderness (mild tenderness jose-incisional). absent : Distended Additional comments: midline incision approximated with babita with iodoform packing, moderately saturated with serous drainage, no purulent fluid expressible, no surrounding erythema or fluctuance. most lateral right 5mm port incision with mild erythema surrounding, no purulent drainage, no fluctuance. Other port sites with no signs of infection - Extremities Exam Extremities Exam: absent: Calf Tenderness, Pedal Edema, Tenderness Additional comments: right BKA - Neurological Exam Neurological Exam: Alert, Awake, Oriented x3 - Psychiatric Exam Psychiatric exam: Normal Affect, Normal Mood - Skin Skin Exam: Dry, Normal Color, Warm Assessment and Plan - Assessment and Plan (Free Text) Assessment: 62M with SBO POD#3 s/p exploratory laparoscopy converted to open with lysis of adhesions and resection of proximal ileum perforation with primary anastamosis. Plan: Continue NPO Continue NGT to continuous suction Trend cbc and cmp Continue TPN Fluid repletion of NGT losses and maintenance Encouraged PT, out of bed to chair, incentive spirometer use Await bowel function to advance diet increased insulin coverage for hyperglycemia Surgery team will take over care as primary with hospitalist as consult--discussed with Dr. Patel, who agreed to the transfer F/U podiatry recs, cardiovascular recs Oral hygiene PRN pain and nausea medication UA to assess for possible UTI Discussed with Dr. Maribel Mitchell, PGY2
[2018-04-07] MEDS ORDERED: Potassium Ch 20mEq in D5-1/2NS 1,000 ML IV SCH ×3 (12:15→17:15)
--- NOTE | 2018-04-07 12:40 | CT ---
Date of service: 04/07/2018 PROCEDURE: CT Angiography Abdomen, Pelvis and Lower Extremity with Contrast HISTORY: lle absent pedal pulses COMPARISON: None available. TECHNIQUE: Technique: CT angiography of the abdomen, pelvis and bilateral lower extremities performed in the arterial phase of enhancement. Coronal and sagittal reformats, and well as rotating MIP images of the vessels generated at the workstation. Intravenous contrast dose: 150 milliliters Visipaque 320 Radiation dose: Total exam DLP = 773.78 mGy-cm. This CT exam was performed using one or more of the following dose reduction techniques: Automated exposure control, adjustment of the mA and/or kV according to patient size, and/or use of iterative reconstruction technique. FINDINGS: CT ANGIOGRAPHY: ABDOMINAL AORTA:: Mild calcific plaque in the aorta without significant stenosis or aneurysm. MAJOR AORTIC BRANCHES: Celiac [place]: Unremarkable. There is a moderate stenosis of proximal common hepatic artery. Superior mesenteric artery: Short segment moderate stenosis of the proximal SMA. There is also a severe stenosis of the proximal right colic branch.. Inferior mesenteric artery: Unremarkable. Renal arteries: Unremarkable. PELVIC ARTERIES: Right Common Iliac: Unremarkable. Right External Iliac: Unremarkable. Right Internal Iliac: Unremarkable. Left Common Iliac: Unremarkable. Left External Iliac: Unremarkable. Left Internal Iliac: Unremarkable. RIGHT LOWER EXTREMITY ARTERIES: Right Common Femoral: Unremarkable. Right Superficial Femoral: Occlusion of the right SFA. Right Profunda Femoris: Unremarkable. Above the amputation. LEFT LOWER EXTREMITY ARTERIES: Left Common Femoral: Severe calcific plaque at the distal common femoral artery extending into the proximal SFA and profunda femoral artery. Left Superficial Femoral: Stenosis of the proximal SFA secondary to severe bulky calcific plaque. Remainder of the SFA has moderate plaque with multiple areas of [id number] stenosis throughout the SFA. Left Profunda Femoris: Unremarkable. Left Popliteal: Moderate stenosis of the popliteal artery. Moderate calcific plaque. Left Anterior Tibial: Abdomen course of the anterior tibial artery which is otherwise patent. Moderate calcific plaque in the proximal segment. Left Tibioperoneal Trunk: Mildly calcified and possibly [id number] stenosis. Left Posterior Tibial: Mild calcific plaque but otherwise patent. Left Peroneal: Occluded in the proximal segment with distal reconstitution. Left Dorsalis pedis: Unremarkable. NON-ANGIOGRAPHIC ASPECT OF THE EXAM: LOWER THORAX: Unremarkable. LIVER: Pneumobilia. Please see CT of the abdomen and pelvis from 04/01/2018 for a better description of liver pathology. GALLBLADDER AND BILE DUCTS: Cholecystectomy. PANCREAS: Evaluation is limited. Chronic pancreatitis with pancreatic duct dilatation. Please see CT of the abdomen and pelvis from 04/01/2018 SPLEEN: Unremarkable. ADRENALS: Unremarkable. No mass. KIDNEYS AND URETERS: Unremarkable. No hydronephrosis. No solid mass. STOMACH AND BOWEL: Evaluation is very limited secondary to phase of study. APPENDIX: PERITONEUM: Unremarkable. No free fluid. No free air. LYMPH NODES: Unremarkable. No enlarged lymph nodes. BLADDER: Unremarkable. REPRODUCTIVE: Unremarkable. BONES: No acute fracture. OTHER FINDINGS: None. IMPRESSION: CT ANGIOGRAM ABDOMEN/PELVIS: 1. Mild calcific plaque in the abdominal aorta without significant stenosis or aneurysm. 2. There is short segment moderate stenosis of the proximal SMA. There also mild to severe stenosis of the proximal right colic branch. 3. Common iliac arteries are unremarkable. LEFT LOWER EXTREMITY CT ANGIOGRAM: 1. There is coarse bulky calcific plaque of the distal common femoral artery extending into the proximal SFA and also the profunda femoral artery. 2. There is moderate to severe stenosis of the proximal SFA. There is mild plaque throughout the SFA with multiple areas of [id number] stenosis throughout the SFA. 3. Moderate stenosis of the popliteal artery. 4. Runoff shows an abnormal course of the anterior tibial artery which is otherwise patent. There is mild calcific plaque in the proximal segment. Superior tibial artery is patent. The tibioperoneal artery is mildly calcified also mildly stenotic. The peroneal artery is occluded and reconstitutes in distal segment. RIGHT LOWER EXTREMITY CT ANGIOGRAM: 1. Common femoral artery and profunda femoral artery are unremarkable. 2. Above knee amputation.
--- NOTE | 2018-04-07 12:43 | VASCULAR ---
PROCEDURE: Date of procedure: 04/05/2018 Procedure: 1. Placement of a right arm PICC with ultrasound and fluoroscopic guidance, CPT 49458 2. PICC tip confirmation with spot radiograph and is in the superior vena cava Medications: 1 percent lidocaine Total Fluoro time: 5.6 seconds Radiation: 0.67 MGy EBL: 2 cc HISTORY: Infection requiring long-term IV antibiotics TECHNIQUE: Following informed consent and procedure time-out, the patient was placed supine on the interventional table and the right arm prepped and draped in the usual sterile fashion. Ultrasound showed a patent and compressible right basilic vein. After the skin was anesthetized with lidocaine, the basilic vein was accessed with micro micropuncture technique using ultrasound guidance. A guidewire was then advanced under fluoroscopic guidance into the superior vena cava. An image documenting ultrasound guidance for vascular access was permanently saved. The length of the single-lumen 4 Micronesian PICC was trimmed to 38 centimeters and advanced through a peel-away sheath. The PICC was position with tip of PICC confirm a spot radiograph the superior vena cava. The PICC was secured to the patient's skin. The PICC was flushed. A biopatch and sterile dressing was applied. IMPRESSION: Placement of a single-lumen 4 Micronesian PICC trimmed to 38 centimeters via right basilic vein. The tip of the PICC is confirmed with spot radiograph and is in the superior vena cava.
[2018-04-07] MEDS: Dakin's Topical 0.25%-Half Strength (480 ml) TOP SCH (14:10)
--- NOTE | 2018-04-07 14:36 | CP.PCM.CON ---
History of Present Illness - History of Present Illness History of Present Illness: Ritchie Denise PGY1, Cardio consult for Dr Hightower Pt is a 62yo male with a PMH or tobacco abuse, HTN, PVD, uncontrolled DM, AKA, admitted for small bowel obstruction. Pt reports that he presented to the emergency department with 10/10 abdominal pain with vomiting. Pt denies chest pain, SOB, arm/jaw pain, left leg pain, numbness, or tingling. A 12 point ROS was obtained and added to the HPI where appropriate. Past Patient History - Infectious Disease Hx of Infectious Diseases: None - Past Medical History & Family History Past Medical History?: Yes - Past Social History Smoking Status: Current Some Days Smoker - CARDIAC Hx Hypercholesterolemia: Yes Hx Hypertension: Yes - PULMONARY Hx Pneumonia: Yes - NEUROLOGICAL Hx Neurological Disorder: No - HEENT Hx HEENT Problems: No - RENAL Hx Chronic Kidney Disease: No - ENDOCRINE/METABOLIC Hx Endocrine Disorders: Yes Hx Diabetes Mellitus Type 2: Yes - HEMATOLOGICAL/ONCOLOGICAL Hx Anemia: Yes Hx Human Immunodeficiency Virus (HIV): No - INTEGUMENTARY Hx Dermatological Problems: No - MUSCULOSKELETAL/RHEUMATOLOGICAL Hx Fractures: No - GASTROINTESTINAL Hx Gall Bladder Disease: Yes - GENITOURINARY/GYNECOLOGICAL Hx Genitourinary Disorders: No - PSYCHIATRIC Hx Psychophysiologic Disorder: No Hx Substance Use: No - SURGICAL HISTORY Hx Cholecystectomy: Yes - ANESTHESIA Hx Anesthesia: Yes Hx Anesthesia Reactions: No Hx Malignant Hyperthermia: No Meds Allergies/Adverse Reactions: Allergies Allergy/AdvReac Type Severity Reaction Status Date / Time garlic Allergy Mild RASH Verified 02/26/18 13:10 - Medications Medications: Current Medications Atorvastatin Calcium (Lipitor) 40 mg PO DAILY [facility] Carvedilol (Coreg) 25 mg PO Q12 [facility] Last Admin: 04/06/18 21:37 Dose: 25 mg Cilostazol (Pletal) 100 mg PO BID [facility] Clotrimazole (Mycelex Sandor) 10 mg MT 5XD [facility] Last Admin: 04/07/18 14:11 Dose: 10 mg Enoxaparin Sodium (Lovenox) 40 mg SC DAILY [facility]; Protocol Last Admin: 04/07/18 08:45 Dose: 40 mg Gabapentin (Neurontin) 300 mg PO HS [facility] Hydromorphone HCl (Dilaudid) 1 mg IVP Q4 PRN PRN Reason: Pain, severe (8-10) Last Admin: 04/07/18 08:50 Dose: 1 mg Piperacillin Sod/Tazobactam (Sod 3.375 gm/ Sodium Chloride) 100 mls @ 100 mls/hr IVPB 0400,1000,1600,2200 [facility]; Protocol Last Admin: 04/07/18 08:59 Dose: 100 mls/hr Lactated Ringer's (Lactated Ringer's) 1,000 mls @ 50 mls/hr IV .Q20H [facility] Last Admin: 04/07/18 08:46 Dose: 50 mls/hr Sodium Chloride 18 meq/ Sodium Phosphate 10 mmole/ Potassium Chloride 15 meq/ Potassium Phosphate 2.5 mmole/ Magnesium Sulfate 2.5 meq/ Calcium Gluconate 2 meq/ Insulin Human Regular 2 units/ Amino Acids 1,021.1033 mls @ 82 mls/hr IV .[id number] ONE Stop: 04/07/18 16:27 Last Admin: 04/07/18 04:37 Dose: 82 mls/hr Potassium Chloride/Dextrose/Sod Cl (Potassium Chl 20 Meq In D5-1/2ns) 1,000 mls @ 500 mls/hr IV .Q2H [facility] Stop: 04/07/18 15:13 Insulin Human Lispro (Humalog) 0 units SC Q6H [facility]; Protocol Last Admin: 04/07/18 13:56 Dose: Not Given Lidocaine HCl (Lidocaine 2% Viscous) 15 ml PO Q4 PRN PRN Reason: Sore Throat Losartan Potassium (Cozaar) 50 mg PO DAILY [facility] Morphine Sulfate (Morphine) 1 mg IVP Q4 PRN PRN Reason: Pain, Mild (1-3) Morphine Sulfate (Morphine) 4 mg IVP Q4 PRN PRN Reason: Pain, moderate (4-7) Ondansetron HCl (Zofran Inj) 4 mg IVP Q6 PRN PRN Reason: Nausea/Vomiting Last Admin: 04/03/18 00:06 Dose: 4 mg Pantoprazole Sodium (Protonix Inj) 40 mg IVP DAILY [facility] Last Admin: 04/07/18 08:44 Dose: 40 mg Sodium Hypochlorite (Dakins Solution 0.25%) 0 ml TOP DAILY [facility] Last Admin: 04/07/18 14:10 Dose: 1 u Ticagrelor (Brilinta) 90 mg PO BID [facility] Physical Exam - Constitutional Appears: No Acute Distress - Head Exam Head Exam: ATRAUMATIC, NORMOCEPHALIC - Eye Exam Eye Exam: EOMI - ENT Exam ENT Exam: Mucous Membranes Moist Additional comments: NG tube in place - Neck Exam Neck exam: Positive for: Full Rom, Normal Inspection. Negative for: Tenderness - Respiratory Exam Respiratory Exam: Clear to Auscultation Bilateral, NORMAL BREATHING PATTERN. absent: Accessory Muscle Use, Respiratory Distress - Cardiovascular Exam Cardiovascular Exam: RRR, +S1, +S2. absent: Diastolic murmur, Systolic Murmur - GI/Abdominal Exam GI & Abdominal Exam: Normal Bowel Sounds, Soft - Extremities Exam Extremities exam: Positive for: full ROM. Negative for: calf tenderness, pedal edema Additional comments: Right AKA popliteal pulse palpated, PT pulse palpated faintly - Neurological Exam Neurological exam: Alert, Oriented x3 - Psychiatric Exam Psychiatric exam: Normal Affect, Normal Mood - Skin Skin Exam: Dry, Intact, Normal Color Results - Vital Signs Recent Vital Signs: Last Vital Signs Temp 98.1 F 04/07/18 08:06 Pulse 92 H 04/07/18 08:06 Resp 19 04/07/18 08:06 BP 112/63 04/07/18 08:06 Pulse Ox 99 04/07/18 08:06 - Labs Result Diagrams: 04/07/18 06:10 04/07/18 06:10 Labs: Laboratory Results - last 24 hr 04/04/18 04/06/18 04/06/18 10:05 15:59 21:54 WBC RBC Hgb Hct MCV MCH MCHC RDW Plt Count Sodium Potassium Chloride Carbon Dioxide Anion Gap BUN Creatinine Est GFR ( Amer) Est GFR (Non-Af Amer) POC Glucose (mg/dL) 126 H 182 H Random Glucose Calcium Phosphorus Magnesium Total Bilirubin AST ALT Alkaline Phosphatase Total Protein Albumin Globulin Albumin/Globulin Ratio Crossmatch See Detail 04/07/18 04/07/18 04/07/18 05:25 06:10 06:10 WBC 10.1 RBC 3.26 L Hgb 9.5 L Hct 28.3 L MCV 86.8 MCH 29.1 MCHC 33.6 RDW 16.9 H Plt Count 357 Sodium 141 Potassium 3.7 Chloride 103 Carbon Dioxide 29 Anion Gap 13 BUN 32 H Creatinine 0.9 Est GFR ( Amer) > 60 Est GFR (Non-Af Amer) > 60 POC Glucose (mg/dL) 209 H Random Glucose 173 H Calcium 8.4 Phosphorus 3.4 Magnesium 1.9 Total Bilirubin 0.7 AST 28 ALT 24 Alkaline Phosphatase 76 Total Protein 5.5 L Albumin 2.7 L Globulin 2.9 Albumin/Globulin Ratio 0.9 L Crossmatch 04/07/18 12:06 WBC RBC Hgb Hct MCV MCH MCHC RDW Plt Count Sodium Potassium Chloride Carbon Dioxide Anion Gap BUN Creatinine Est GFR ( Amer) Est GFR (Non-Af Amer) POC Glucose (mg/dL) 82 Random Glucose Calcium Phosphorus Magnesium Total Bilirubin AST ALT Alkaline Phosphatase Total Protein Albumin Globulin Albumin/Globulin Ratio Crossmatch Assessment & Plan - Assessment and Plan (Free Text) Assessment: Consulted for non palpable pedal pulses tobacco abuse HTN PVD uncontrolled DM AKA Plan: Consulted for non palpable pulses tobacco abuse HTN PVD uncontrolled DM AKA HA1C 03/25/18 15.4 EKG 04/01/18 Sinus tachycardia, prolonged QT Abdominal CT 04/07/18: short segment of moderate stenosis of the prox SMA. Mild to severe stenosis of the prox right colic branch. LLE CTA: bulky calcific plaque of the distal common femoral artery extending into the prox SFA and also the profunda. Abnormal course of anterior tibial artery which is otherwise patent. Medications coreg Pt seen, examined, assessment and plan discussed with Dr Campbell Denise PGY1 - Date & Time Date: 04/07/18 Time: 07:50
--- NOTE | 2018-04-07 16:23 | RAD ---
Date of service: 04/07/2018 HISTORY: NGT placement COMPARISON: Portable chest 04/06/2018 10:36 p.m.. FINDINGS: LUNGS: Right PICC and nasogastric tube are not significantly changed in the interval. PLEURA: No right pleural effusion identified, no pneumothorax apparent. Left costophrenic sulcus has been cut off from this examination. No prominent left pleural effusion or pneumothorax evident. CARDIOVASCULAR: No aortic atherosclerotic calcification present. Prominent cardiac silhouette reiterated, at least in part due to technical magnification. No pulmonary vascular congestion. OSSEOUS STRUCTURES: No significant abnormalities. VISUALIZED UPPER ABDOMEN: Limited free intra peritoneal gas is suggested inferior to the right hemidiaphragm though potentially less than previously shown. OTHER FINDINGS: None. IMPRESSION: No definite interval acute cardiopulmonary disease appreciable with prominent cardiac silhouette again evident. Likely diminishing free intra peritoneal gas inferior right hemidiaphragm. Clinically correlate further. Findings discussed with Dr. Smith with written down and read back verification 04/07/2018 4:10 p.m.
--- NOTE | 2018-04-07 16:24 | RAD ---
Date of service: 04/06/2018 HISTORY: sob, cough, POD 3 COMPARISON: Portable chest 04/02/2018. FINDINGS: LUNGS: Right PICC has been placed with the tip terminating at the cavoatrial junction. Nasogastric tube is been advanced further into the region of the stomach. Limited right basilar atelectasis identified. Remaining lung hernandez are clear bilaterally otherwise. PLEURA: No significant pleural effusion identified, no pneumothorax apparent. CARDIOVASCULAR: No aortic atherosclerotic calcification present. Cardiac silhouette appears somewhat prominent though likely a function of the least technical magnification in part. No pulmonary vascular congestion. OSSEOUS STRUCTURES: No significant abnormalities. VISUALIZED UPPER ABDOMEN: Mild amount of free intra peritoneal gas is identified inferior to the right hemidiaphragm. Clinically correlate further. OTHER FINDINGS: None. IMPRESSION: Limited right basilar atelectasis identified. Right PICC in good apparent position with nasogastric tube also now adequately placed, terminating at the region of the stomach further.
[2018-04-07 20:03] LABS: SQUAMOUS EPITHIAL < 1 /hpf (0-5); URINE BILIRUBIN NEGATIVE (NEGATIVE); URINE BLOOD LARGE (NEGATIVE); URINE CLARITY CLEAR (Clear); URINE COLOR YELLOW (YELLOW); URINE GLUCOSE (UA) NEG (NEGATIVE); URINE LEUKOCYTE ESTERASE NEG Leu/uL (Negative); URINE PROTEIN 30 mg/dL (NEGATIVE); URINE UROBILINOGEN 0.2-1.0 mg/dL (0.2-1.0)
[2018-04-07] MEDS ORDERED: Acetylcysteine 10% 4 ML IH ONE (22:10)
[2018-04-08] MEDS ORDERED: Morphine 5 MG/ML SYRINGE IVP PRN (01:00)
[2018-04-08] MEDS: Piperacillin/Tazobact 3.375 GM in Sodium Chloride 0.9% 100 ML IVPB SCH ×4 (04:08→21:31)
[2018-04-08] MEDS ORDERED: [UNRECOGNIZED DRUG - OTHER] IV ONE (05:00)
[2018-04-08] MEDS ORDERED: POTASSIUM CHLORIDE IV ONE ×2 (05:00→13:15)
[2018-04-08] MEDS ORDERED: SODIUM PHOSPHATE IV ONE ×2 (05:00→13:15)
[2018-04-08] MEDS ORDERED: SODIUM CHLORIDE IV ONE ×2 (05:00→13:15)
[2018-04-08 06:24] LABS: ALB/GLOB RATIO 0.9 (1.0-2.1); ALBUMIN 2.5 g/dL (3.5-5.0); ALT/SGPT 12 U/L (21-72); AST/SGOT 17 U/L (17-59); BLOOD UREA NITROGEN 27 mg/dl (9-20); CALCIUM 7.9 mg/dL (8.4-10.2); GFR NON-AFRICAN AMERICAN > 60; HDL CHOLESTEROL 11 MG/DL (30-70)
[2018-04-08 06:32] LABS: LDL CHOLESTEROL 33 mg/dL (0-129)
[2018-04-08] MEDS: Insulin Lispro (humaLOG) 100 Units/ml Inj SC SCH ×3 (06:40→18:10)
[2018-04-08 06:45] LABS: BASO # 0.1 K/uL (0.0-0.2); BASO % 0.5 % (0.0-2.0); EOS # 0.4 K/uL (0.0-0.7); EOS % 3.6 % (0.0-4.0); LYMPH # 1.8 K/uL (1.0-4.3); LYMPH % 16.2 % (20.0-40.0); MEAN CELL VOLUME 90.2 fl (80.0-94.0); MEAN CORPUSCULAR HEMOGLOBIN 28.2 pg (27.0-31.0); MEAN CORPUSCULAR HGB CONC 31.2 g/dL (33.0-37.0); MEAN PLATELET VOLUME 9.9 fl (7.2-11.7); MONO # 0.6 K/uL (0.0-0.8); MONO % 5.5 % (0.0-10.0); NEUT # 8.2 K/uL (1.8-7.0); NEUT % 74.2 % (50.0-75.0); NRBC % 0.1 % (0.0-0.0); RBC 3.18 Mil/uL (4.40-5.90); WHITE BLOOD COUNT 11.1 K/uL (4.8-10.8)
[2018-04-08] MEDS ORDERED: Albuterol-Ipratrop 3 mg / 0.5 (3 ml) UD INH PRN (07:14)
[2018-04-08] MEDS ORDERED: Phenol 1.4% Throat Spray MT PRN (07:14)
[2018-04-08] MEDS ORDERED: Morphine 4 MG/ML VIAL IVP PRN ×2 (07:28)
[2018-04-08] MEDS ORDERED: Acetaminophen 325 MG/10.15 ML PO PRN (07:29)
--- NOTE | 2018-04-08 07:31 | CP.PCM.PN ---
Subjective - Date & Time of Evaluation Date of Evaluation: 04/08/18 Time of Evaluation: 07:00 - Subjective Subjective: Surgery progress note for Dr. López Pt seen and examined this AM. Patient had a cough and SOB yesterday improved by a duoneb treatment. Patient states abdominal pain is unchanged and and well controlled, denies nausea, vomiting, denies passing flatus or BM. Got out of bed to chair yesterday. Objective - Vital Signs/Intake and Output Vital Signs (last 24 hours): Temp Pulse Resp BP Pulse Ox 96.8 F L 69 20 118/65 100 04/08/18 06:00 04/08/18 06:00 04/08/18 06:00 04/08/18 06:00 04/08/18 00:57 Intake and Output: 04/08/18 04/08/18 06:59 18:59 Intake Total 3480 Output Total 1300 Balance 2180 - Medications Medications: Current Medications Acetaminophen (Tylenol 325mg/10.15ml Ud) 325 mg PO Q6 PRN PRN Reason: Pain, Mild (1-3) Albuterol/Ipratropium (Duoneb 3 Mg/0.5 Mg (3 Ml) Ud) 3 ml INH RQ4 PRN PRN Reason: Shortness of Breath Atorvastatin Calcium (Lipitor) 40 mg PO DAILY [facility] Carvedilol (Coreg) 25 mg PO Q12 [facility] Last Admin: 04/07/18 21:20 Dose: 25 mg Cilostazol (Pletal) 100 mg PO BID [facility] Clotrimazole (Mycelex Sandor) 10 mg MT 5XD [facility] Last Admin: 04/08/18 05:09 Dose: Not Given Enoxaparin Sodium (Lovenox) 40 mg SC DAILY [facility]; Protocol Last Admin: 04/07/18 08:45 Dose: 40 mg Gabapentin (Neurontin) 300 mg PO HS [facility] Piperacillin Sod/Tazobactam (Sod 3.375 gm/ Sodium Chloride) 100 mls @ 100 mls/hr IVPB 0400,1000,1600,2200 [facility]; Protocol Last Admin: 04/08/18 04:08 Dose: 100 mls/hr Sodium Chloride 18 meq/ Sodium Phosphate 10 mmole/ Potassium Chloride 15 meq/ Potassium Phosphate 2.5 mmole/ Magnesium Sulfate 2.5 meq/ Calcium Gluconate 2 meq/ Insulin Human Regular 3 units/ Amino Acids 1,021.1133 mls @ 82 mls/hr IV .[id number] ONE Stop: 04/08/18 17:27 Potassium Chloride/Sodium Chloride (Potassium Chl 20 Meq In Ns) 1,000 mls @ 50 mls/hr IV .Q20H [facility] Insulin Human Lispro (Humalog) 0 units SC Q6H [facility]; Protocol Last Admin: 04/08/18 06:40 Dose: 10 units Lidocaine HCl (Lidocaine 2% Viscous) 15 ml PO Q4 PRN PRN Reason: Sore Throat Last Admin: 04/07/18 18:25 Dose: 15 ml Losartan Potassium (Cozaar) 50 mg PO DAILY [facility] Morphine Sulfate (Morphine) 4 mg IVP Q4 PRN PRN Reason: Pain, severe (8-10) Morphine Sulfate (Morphine) 1 mg IVP Q4 PRN PRN Reason: Pain, moderate (4-7) Ondansetron HCl (Zofran Inj) 4 mg IVP Q6 PRN PRN Reason: Nausea/Vomiting Last Admin: 04/03/18 00:06 Dose: 4 mg Pantoprazole Sodium (Protonix Inj) 40 mg IVP DAILY [facility] Last Admin: 04/07/18 08:44 Dose: 40 mg Phenol/Menthol (Phenaseptic 1.4% Throat [place]) 1 spry MT Q2 PRN PRN Reason: Nausea/Vomiting Sodium Hypochlorite (Dakins Solution 0.25%) 0 ml TOP DAILY [facility] Last Admin: 04/07/18 14:10 Dose: 1 u Ticagrelor (Brilinta) 90 mg PO BID [facility] - Labs Labs: 04/08/18 06:00 04/08/18 06:00 PT 13.7 Seconds (9.8-13.1) H 04/01/18 21:53 INR 1.2 04/01/18 21:53 APTT 32.8 Seconds (25.6-37.1) 04/01/18 21:53 - Constitutional Appears: Well, Non-toxic, No Acute Distress - Head Exam Head Exam: ATRAUMATIC, NORMOCEPHALIC - Eye Exam Eye Exam: Normal appearance. absent: Conjunctival injection, Scleral icterus - ENT Exam ENT Exam: Mucous Membranes Moist, Normal Oropharynx - Respiratory Exam Respiratory Exam: NORMAL BREATHING PATTERN. absent: Accessory Muscle Use, Respiratory Distress - Cardiovascular Exam Cardiovascular Exam: RRR - GI/Abdominal Exam GI & Abdominal Exam: Distended (mild), Soft, Tenderness (BL lower quadrants mild tenderness, jose-incisional tenderness). absent: Rebound Additional comments: midline incision loosely approximated with babita, with packing moderate saturation of dressing with serosanguinous fluid. no purulent drainage expressible - Extremities Exam Extremities Exam: absent: Calf Tenderness, Pedal Edema Additional comments: right AKA, left foot wound with dressing clean, dry, intact - Neurological Exam Neurological Exam: Alert, Awake, Oriented x3 - Psychiatric Exam Psychiatric exam: Normal Affect, Normal Mood - Skin Skin Exam: Dry, Normal Color, Warm Assessment and Plan (1) SBO (small bowel obstruction) Status: Acute (2) On total parenteral nutrition (TPN) Status: Acute (3) Malnutrition following gastrointestinal surgery Status: Acute (4) Cough Status: Acute (5) Dehydration Status: Resolved (6) Foot pain Status: Chronic (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 (8) Hyperglycemia Status: Acute (9) Hypertension Status: Chronic (10) Pancreatic mass Status: Acute (11) S/P AKA (above knee amputation) unilateral Status: Chronic (12) Diabetes mellitus type 2 in nonobese Status: Chronic (13) Lung mass Status: Chronic (14) PVD (peripheral vascular disease) Status: Chronic - Assessment and Plan (Free Text) Assessment: 62M POD#4 s/p laparotomy with lysis of adhesions and resection of ileal perforation with primary anastamosis Plan: Continue to trend CBC, Chemistry Pre-albumin for nutrition status assessment Adjust insulin coverage in TPN for hyperglycemia and continue sliding scale insulin, ACHS, with POC glucose Continue TPN, will discuss with dietition Consult patrol officer for recommendations of hyperglycemia F/U podiatry, medicine, and cardiovascular recommendations IVF PRN pain and nausea medication Scheduled reglan NGT to continuous low suction--monitor UOP and NGT output Duonebs and incentive spirometer for cough, atelectasis Continue zosyn for 4/4 days for surgical contamination Oral care Out of bed to chair with PT Lovenox for DVT prophylaxis NPO with meds until return of bowel function--can clamp NGT for medications Restart home PO medications, hold brillinta Local wound care Discussed and examined with Dr. Maribel Mitchell, PGY2
--- NOTE | 2018-04-08 08:09 | RAD ---
Date of service: 04/07/2018 HISTORY: NGT placement COMPARISON: Portable chest 04/07/2018. FINDINGS: LUNGS: Nasogastric tubes and right PICC are not significantly changed in position. No active pulmonary disease. PLEURA: No significant pleural effusion identified, no pneumothorax apparent. CARDIOVASCULAR: No aortic atherosclerotic calcification present. Cardiac silhouette appears stable. No pulmonary vascular congestion. OSSEOUS STRUCTURES: No significant abnormalities. VISUALIZED UPPER ABDOMEN: Limited free intra peritoneal gas remains inferior to the right hemidiaphragm. OTHER FINDINGS: None. IMPRESSION: No interval acute cardiopulmonary disease with prominent cardiac silhouette remaining. Free intra peritoneal gas is limited volume but unchanged, inferior to the right hemidiaphragm.
--- NOTE | 2018-04-08 08:56 | CP.PCM.PN ---
Subjective - Date & Time of Evaluation Date of Evaluation: 04/08/18 Time of Evaluation: 07:40 - Subjective Subjective: Pt seen and examined this morning. Pt denies chest pain, SOB, or RLE numbness, tingling, or pain Objective - Vital Signs/Intake and Output Vital Signs (last 24 hours): Temp Pulse Resp BP Pulse Ox 96.8 F L 69 20 118/65 100 04/08/18 06:00 04/08/18 06:00 04/08/18 06:00 04/08/18 06:00 04/08/18 00:57 Intake and Output: 04/08/18 04/08/18 06:59 18:59 Intake Total 3480 Output Total 1300 Balance 2180 - Medications Medications: Current Medications Acetaminophen (Tylenol 325mg/10.15ml Ud) 325 mg PO Q6 PRN PRN Reason: Pain, Mild (1-3) Albuterol/Ipratropium (Duoneb 3 Mg/0.5 Mg (3 Ml) Ud) 3 ml INH RQ4 PRN PRN Reason: Shortness of Breath Atorvastatin Calcium (Lipitor) 40 mg PO DAILY [facility] Carvedilol (Coreg) 25 mg PO Q12 [facility] Last Admin: 04/07/18 21:20 Dose: 25 mg Cilostazol (Pletal) 100 mg PO BID [facility] Clotrimazole (Mycelex Sandor) 10 mg MT 5XD [facility] Last Admin: 04/08/18 05:09 Dose: Not Given Enoxaparin Sodium (Lovenox) 40 mg SC DAILY [facility]; Protocol Last Admin: 04/07/18 08:45 Dose: 40 mg Gabapentin (Neurontin) 300 mg PO HS [facility] Piperacillin Sod/Tazobactam (Sod 3.375 gm/ Sodium Chloride) 100 mls @ 100 mls/hr IVPB 0400,1000,1600,2200 [facility]; Protocol Last Admin: 04/08/18 04:08 Dose: 100 mls/hr Sodium Chloride 18 meq/ Sodium Phosphate 10 mmole/ Potassium Chloride 15 meq/ Potassium Phosphate 2.5 mmole/ Magnesium Sulfate 2.5 meq/ Calcium Gluconate 2 meq/ Insulin Human Regular 3 units/ Amino Acids 1,021.1133 mls @ 82 mls/hr IV .[id number] ONE Stop: 04/08/18 17:27 Last Admin: 04/08/18 08:30 Dose: 82 mls/hr Potassium Chloride/Sodium Chloride (Potassium Chl 20 Meq In Ns) 1,000 mls @ 50 mls/hr IV .Q20H [facility] Insulin Human Lispro (Humalog) 0 units SC Q6H [facility]; Protocol Last Admin: 04/08/18 06:40 Dose: 10 units Lidocaine HCl (Lidocaine 2% Viscous) 15 ml PO Q4 PRN PRN Reason: Sore Throat Last Admin: 04/07/18 18:25 Dose: 15 ml Losartan Potassium (Cozaar) 50 mg PO DAILY [facility] Metoclopramide HCl (Reglan) 10 mg IVP Q6 [facility] Stop: 04/09/18 04:01 Morphine Sulfate (Morphine) 4 mg IVP Q4 PRN PRN Reason: Pain, severe (8-10) Morphine Sulfate (Morphine) 1 mg IVP Q4 PRN PRN Reason: Pain, moderate (4-7) Ondansetron HCl (Zofran Inj) 4 mg IVP Q6 PRN PRN Reason: Nausea/Vomiting Last Admin: 04/03/18 00:06 Dose: 4 mg Pantoprazole Sodium (Protonix Inj) 40 mg IVP DAILY [facility] Last Admin: 04/07/18 08:44 Dose: 40 mg Phenol/Menthol (Phenaseptic 1.4% Throat [place]) 1 spry MT Q2 PRN PRN Reason: Nausea/Vomiting Sodium Hypochlorite (Dakins Solution 0.25%) 0 ml TOP DAILY [facility] Last Admin: 04/07/18 14:10 Dose: 1 u Ticagrelor (Brilinta) 90 mg PO BID [facility] - Labs Labs: 04/08/18 06:00 04/08/18 06:00 PT 13.7 Seconds (9.8-13.1) H 04/01/18 21:53 INR 1.2 04/01/18 21:53 APTT 32.8 Seconds (25.6-37.1) 04/01/18 21:53 - Constitutional Appears: No Acute Distress - Head Exam Head Exam: ATRAUMATIC, NORMOCEPHALIC - Eye Exam Eye Exam: EOMI - ENT Exam ENT Exam: Mucous Membranes Moist - Neck Exam Neck Exam: Full ROM - Respiratory Exam Respiratory Exam: Clear to Ausculation Bilateral, NORMAL BREATHING PATTERN. absent: Accessory Muscle Use, Respiratory Distress - Cardiovascular Exam Cardiovascular Exam: RRR, +S1, +S2. absent: Diastolic murmur - GI/Abdominal Exam GI & Abdominal Exam: Soft, Tenderness Additional comments: bandage is clean dry and intact - Extremities Exam Additional comments: RLE amputated LLE popliteal pulse palpated, PT pulse is faint - Neurological Exam Neurological Exam: Alert, Awake, Oriented x3 - Psychiatric Exam Psychiatric exam: Normal Affect, Normal Mood - Skin Skin Exam: Dry, Normal Color, Warm Assessment and Plan - Assessment and Plan (Free Text) Assessment: Consulted for non palpable pedal pulses tobacco abuse HTN PVD uncontrolled DM AKA Plan: Consulted for non palpable pulses tobacco abuse HTN PVD uncontrolled DM AKA HA1C 03/25/18 15.4 EKG 04/01/18 Sinus tachycardia, prolonged QT Abdominal CT 04/07/18: short segment of moderate stenosis of the prox SMA. Mild to severe stenosis of the prox right colic branch. LLE CTA: bulky calcific plaque of the distal common femoral artery extending into the prox SFA and also the profunda. Abnormal course of anterior tibial artery which is otherwise patent. SFA stenosis no need for acute intervention at this time. Medications coreg lipitor cozaar Pt seen, examined, assessment and plan discussed with Dr Campbell Denise PGY1, Internal Medicine Resident
[2018-04-08] MEDS: Enoxaparin 40 mg Syringe SC SCH (10:13)
--- NOTE | 2018-04-08 10:13 | CP.PCM.PN ---
Subjective - Date & Time of Evaluation Date of Evaluation: 04/08/18 Time of Evaluation: 09:50 - Subjective Subjective: 62 y/o M was seen and examined by bedside. Pt reports feeling OK, denies passing gasses and NO bowel movement. Pt is NPO, NGT in place, 400cc of greenish fluid collected by bedside. Pt is able to urinate with NO difficulties. Pt reports his cough has improved since last night. Objective - Vital Signs/Intake and Output Vital Signs (last 24 hours): Temp Pulse Resp BP Pulse Ox 96.8 F L 69 20 118/65 100 04/08/18 06:00 04/08/18 06:00 04/08/18 06:00 04/08/18 06:00 04/08/18 00:57 Intake and Output: 04/08/18 04/08/18 06:59 18:59 Intake Total 3480 1584 Output Total 1300 750 Balance 2180 834 - Medications Medications: Current Medications Acetaminophen (Tylenol 325mg/10.15ml Ud) 325 mg PO Q6 PRN PRN Reason: Pain, Mild (1-3) Albuterol/Ipratropium (Duoneb 3 Mg/0.5 Mg (3 Ml) Ud) 3 ml INH RQ4 PRN PRN Reason: Shortness of Breath Atorvastatin Calcium (Lipitor) 40 mg PO DAILY [facility] Carvedilol (Coreg) 25 mg PO Q12 [facility] Last Admin: 04/07/18 21:20 Dose: 25 mg Cilostazol (Pletal) 100 mg PO BID [facility] Clotrimazole (Mycelex Sandor) 10 mg MT 5XD [facility] Last Admin: 04/08/18 05:09 Dose: Not Given Enoxaparin Sodium (Lovenox) 40 mg SC DAILY [facility]; Protocol Last Admin: 04/07/18 08:45 Dose: 40 mg Gabapentin (Neurontin) 300 mg PO HS [facility] Hydromorphone HCl (Dilaudid) 0.5 mg IVP Q4H PRN PRN Reason: Pain, severe (8-10) Last Admin: 04/08/18 09:35 Dose: 0.5 mg Piperacillin Sod/Tazobactam (Sod 3.375 gm/ Sodium Chloride) 100 mls @ 100 mls/hr IVPB 0400,1000,1600,2200 [facility]; Protocol Last Admin: 04/08/18 09:38 Dose: 100 mls/hr Sodium Chloride 18 meq/ Sodium Phosphate 10 mmole/ Potassium Chloride 15 meq/ Potassium Phosphate 2.5 mmole/ Magnesium Sulfate 2.5 meq/ Calcium Gluconate 2 meq/ Insulin Human Regular 3 units/ Amino Acids 1,021.1133 mls @ 82 mls/hr IV . [id number] ONE Stop: 04/08/18 17:27 Last Admin: 04/08/18 08:30 Dose: 82 mls/hr Potassium Chloride/Sodium Chloride (Potassium Chl 20 Meq In Ns) 1,000 mls @ 50 mls/hr IV .Q20H [facility] Insulin Human Lispro (Humalog) 0 units SC Q6H [facility]; Protocol Last Admin: 04/08/18 06:40 Dose: 10 units Lidocaine HCl (Lidocaine 2% Viscous) 15 ml PO Q4 PRN PRN Reason: Sore Throat Last Admin: 04/07/18 18:25 Dose: 15 ml Losartan Potassium (Cozaar) 50 mg PO DAILY [facility] Metoclopramide HCl (Reglan) 10 mg IVP Q6 [facility] Stop: 04/09/18 04:01 Morphine Sulfate (Morphine) 4 mg IVP Q4 PRN PRN Reason: Pain, severe (8-10) Ondansetron HCl (Zofran Inj) 4 mg IVP Q6 PRN PRN Reason: Nausea/Vomiting Last Admin: 04/03/18 00:06 Dose: 4 mg Pantoprazole Sodium (Protonix Inj) 40 mg IVP DAILY [facility] Last Admin: 04/08/18 09:39 Dose: 40 mg Phenol/Menthol (Phenaseptic 1.4% Throat [place]) 1 spry MT Q2 PRN PRN Reason: Nausea/Vomiting Sodium Hypochlorite (Dakins Solution 0.25%) 0 ml TOP DAILY [facility] Last Admin: 04/07/18 14:10 Dose: 1 u Ticagrelor (Brilinta) 90 mg PO BID [facility] - Labs Labs: 04/08/18 06:00 04/08/18 06:00 PT 13.7 Seconds (9.8-13.1) H 04/01/18 21:53 INR 1.2 04/01/18 21:53 APTT 32.8 Seconds (25.6-37.1) 04/01/18 21:53 - Constitutional Appears: No Acute Distress, Cachectic, Chronically Ill - Head Exam Head Exam: ATRAUMATIC, NORMAL INSPECTION - Eye Exam Eye Exam: EOMI - ENT Exam ENT Exam: Mucous Membranes Dry - Neck Exam Neck Exam: Full ROM. absent: Lymphadenopathy, Meningismus - Respiratory Exam Respiratory Exam: Decreased Breath Sounds (over b/l bases. ), NORMAL BREATHING PATTERN. absent: Rhonchi, Wheezes - Cardiovascular Exam Cardiovascular Exam: REGULAR RHYTHM, +S1, +S2 - GI/Abdominal Exam GI & Abdominal Exam: Distended (mild), Soft, Tenderness (diffuse). absent: Guarding, Rebound - Extremities Exam Additional comments: Right AKA. L first toe amputated. Left foot in clean and dry dressing. - Neurological Exam Neurological Exam: Alert, Awake, Oriented x3 Assessment and Plan - Assessment and Plan (Free Text) Assessment: 62 yo with a PMHx of HTN, peripheral vascular disease, uncontrolled diabetes mellitus (not in insulin as pt not agreeable), right AKA, cholecystectomy?, unknown abdominal procedure/surgery?, admitted due to partial SBO. --S/P "exploratory laparoscopy with extensive lysis of adhesion, conversion to laparotomy with resection of small bowel perforation with primary anastomosis." on 04/04/18. PLAN: >Small Bowel Obstruction, POD #4. --Afebrile, HR is decreasing. --General Surgery as primary team, Dr. López. --NPO, NGT, and IV fluids --Zofran PRN, Pantoprazole IVP daily. --Pain control w/ morphine and Dilauid PRN --On IV Zosyn. --F/U symptoms --Monitor I and O's >PVD, L Foot ulcer --Chronic --Podiatry on board, Dr Pham. --PO meds on hold as per NPO, re-initiate PO Brilinta when PO allowed. >Cough --Improved with Nebulization treatments --CXR unremarkable --Incentive Spirometry --Encourage OOB and follow PT. >Chronic normocytic anemia --Stable, POD 4. --F/U CBC. >Cachexia -Evident on physical exam -Pt reports significant weight loss in past 3 months -TPN >Uncontrolled Diabetes Mellitus, type 2, with hyperglycemia. --HbA1c 15.4 on 03/25/18. --Non-compliant --Insuin sliding scale. --Pt willing to receive insulin now. >Electrolyte derangement --WNL today. --Monitor electrolytes and replace >Hypertension --Chronic, BP wnl today --Considering IV Vasotec if BP elevates. >Anemia --Chronic, --POD 4. --Monitor CBC >DVT prophylaxis - Lovenox Case discussed with Dr. Frankie Hernández PGY-2
[2018-04-08] MEDS ORDERED: [UNRECOGNIZED DRUG - OTHER] IV ONE (13:15)
[2018-04-08] MEDS: Dakin's Topical 0.25%-Half Strength (480 ml) TOP SCH (13:38)
[2018-04-08] MEDS: Potassium Chl 20 mEq in NS 1,000 ML IV SCH (16:00)
[2018-04-08] MEDS: Insulin Detemir 100 Units/ml Inj SC SCH (21:23)
--- NOTE | 2018-04-08 23:45 | CON ---
DATE: 04/08/2018 ENDOCRINOLOGY CONSULTATION LOCATION; Room 653. HISTORY OF PRESENT ILLNESS: This is a 62-year-old male with recent uncontrolled type 2 insulin-requiring diabetes presenting here with severe diffuse abdominal pain and evaluated to have small bowel obstruction and underwent exploratory laparotomy and is currently n.p.o. with ongoing TPN infusion as given. He is being referred now for diabetic evaluation because of marked hyperglycemic accelerations as noted thereof. PAST MEDICAL HISTORY: As mentioned above, history of type 2 diabetes, previously on oral hypoglycemic therapy using metformin at 850 mg t.i.d. and has been refusing insulin even for outpatient diabetic management. History of hypertension, dyslipidemia, history of diabetic retinopathy, polyneuropathy and nephropathy with coronary artery disease and peripheral arterial disease and vasculopathy. History of a previous right above-knee amputation some years ago as noted. FAMILY HISTORY: Positive for diabetes and hypertension. SOCIAL HISTORY: The patient has supportive family and is currently active smoker for over 40 years consuming a pack a day as noted. No other illicit drug use. REVIEW OF SYSTEMS: As mentioned above, admits to generalized body weakness with progressive bouts of dizziness and lightheadedness, worse on the day of admission. No chest pains or palpitations but admits to progressive shortness of breath especially on exertion. His oral intake has been variable with nausea and dyspepsia and severe and diffuse abdominal pain prior to the surgical procedure as given and noted. Also admits to marked polyuria and nocturia and polydipsia. PHYSICAL EXAMINATION: GENERAL: An average built male in no apparent distress. VITAL SIGNS: Blood pressure of 140/80, pulse of 70 beats per minute regular, temperature 98, respirations 20, height is 5 feet 9 inches. Weight is 132 pounds. HEENT: Head normocephalic. Eyes anicteric with pink conjunctivae from dust possibly at this time. Ears, nose and throat otherwise normal. NECK: Supple. Thyroid gland is normal in size. No carotid bruits or any cervical adenopathy. CARDIOPULMONARY: Some adynamic precordium. S1, S2 is rapid and regular. LUNGS: Clear to auscultation. ABDOMEN: Flat, soft with positive bowel sounds. EXTREMITIES: No peripheral edema. Pulses are +2 bilaterally. LABORATORY: His chemistry showed a BUN of 27, sodium 136, potassium 4.3, chloride 104, CO2 22, glucose 351 and creatinine 0.7. His glucose levels have ranged from 317-411 mg/dL. ASSESSMENT: This is a 62-year-old male with uncontrolled and decompensated type 2 insulin-requiring diabetes, currently on a total parenteral nutrition postoperatively following a exploratory laparotomy for small bowel obstruction as noted thereof. He also has diabetic microvascular complications of retinopathy, polyneuropathy and nephropathy with diabetic macrovascular complications of coronary artery disease and peripheral arterial disease and vasculopathy with a previous right above-knee amputation as noted. PLAN OF MANAGEMENT: We will modify the coverage scale with Humalog insulin given every 6 hours as ordered. We will also add basal insulin if needed n.p.o. with Levemir given as 12 units subcu every 12 hours at 10:00 a.m. and 10:00 p.m. daily as given. We will obtain serial chemistries and supplement accordingly as needed. We will also obtain a hemoglobin A1c to confirm his prior poor glycemic control and baseline thyroid function studies will be ordered. We will follow and advise accordingly. Gabi Scanlon MD
--- NOTE | 2018-04-08 23:54 | OP ---
PROCEDURE DATE: 04/04/2018 PREOPERATIVE DIAGNOSIS: Small bowel obstruction. POSTOPERATIVE DIAGNOSIS: Small bowel obstruction. SURGERY: 1. Exploratory laparoscopy. 2. Laparoscopic enterolysis. 3. Exploratory laparotomy. 4. Enterectomy with primary stapled anastomosis. SURGEON: Devante López MD ANESTHESIA: General endotracheal DESCRIPTION OF SURGERY: The patient was brought into the operating room and placed on the operating table in the supine position. After smooth induction of general endotracheal anesthesia, Venodyne boots were placed in both the legs and prophylactic IV antibiotics were given. The entire abdomen was prepped and draped in the usual sterile fashion, and a Blackwell catheter was inserted into the bladder. After the usual and customary time-out, the area of the umbilicus was infiltrated with local anesthetic and incised with a 15-blade. The Veress needle was inserted through the opening and pneumoperitoneum up to 15 mmHg was established. A 5-mm 0-degree laparoscopic video camera mounted on a Visi-Port was inserted through the incision and through the abdominal wall layers into the peritoneal cavity. The obturator was removed and the port was connected to the CO2 tank, and the camera was switched to a 5-mm 30-degree laparoscopic video camera. The abdomen was inspected. There were multiple dilated loops of small bowel and multiple adhesions. Three more 5 mm ports were inserted in the lower abdomen in the right lateral side of the abdomen through which successfully endograspers, EndoSure, Endo hook, and LigaSure were inserted in an attempt to lyse the adhesions in sharp and blunt fashion. This part of surgery lasted approximately one hour because of the multiple dense adhesions. They were encountered. Upon being near completion of the adhesiolysis, a loop of small bowel was identified which appears to be firmly adherent, and visualized that there was a small area of full thickness necrosis of the bowel with yellowish and purulent exudate. Upon taking down this adhesion, it became apparent that there was a perforation of the bowel which was previous to this surgery and was rolled off by an another bowel loop causing essentially the small bowel obstruction. Upon examining, the surgery was not possible to complete laparoscopically. We converted to open using old midline supraumbilical incision with a #10 blade. Incision was brought down to the subcutaneous tissue using Bovie electrocautery. The peritoneal cavity was accessed and a Aldair retractor was placed for better exposure. The area of the small bowel seemed to be perforated obstructed that was identified and from the proximal loop was sucked with the pool sucker until the bowel was decompression to the point in which they were visualized, they are now doing better, and move the bowels without causing any tear or ischemic damage. The TAMMY 75 green stapler was fired approximately distal to the perforation, approximately 10 cm from the edge of the perforation, and corresponding mesentery was secured with a 10 mm LigaSure, and the specimens were sent to pathology, appropriately labeled for permanent section. The bowels run from stomach all the way to the ileocecal valve and the large bowel as well. There appeared to an end-to-side anastomosis from previous surgery as we have no record but it seemed to be intact, a little dilated in that area, they was dilation in that area. A [id number]-kc-[id number] staple anastomosis using a TAMMY 75 green stapler was performed in an [id number] fashion, opened with TA 60 green stapler, and the suture lines were reinforced with a 2-0 silk stitch. The abdomen was irrigated with copious amount of warm normal saline approximately 10 L and closed in two layers using #1 continuous loop PDS for the fascia and babita for the skin. The openings were left between the babita and packed with 0.25-inch Iodoform gauze. Sterile dressings were applied. At the end of the surgery, the counts of instruments, gauze, and needles were correct x2. The patient tolerated the surgery well and was transferred in stable condition to the recovery room. Devante López MD
[2018-04-09] MEDS: Insulin Lispro (humaLOG) 100 Units/ml Inj SC SCH ×4 (00:34→18:33)
[2018-04-09] MEDS: Potassium Chl 20 mEq in NS 1,000 ML IV SCH (04:55)
[2018-04-09 06:33] LABS: HEMOGLOBIN 8.5 g/dL (12.0-18.0); MEAN CELL VOLUME 88.6 fl (80.0-94.0); MEAN CORPUSCULAR HEMOGLOBIN 28.3 pg (27.0-31.0); RBC 2.99 Mil/uL (4.40-5.90); RED CELL DISTRIBUTION WIDTH 16.4 % (11.5-14.5); WHITE BLOOD COUNT 14.8 K/uL (4.8-10.8)
[2018-04-09 06:45] LABS: ALB/GLOB RATIO 0.8 (1.0-2.1); ALBUMIN 2.1 g/dL (3.5-5.0); ALT/SGPT 19 U/L (21-72); AST/SGOT 12 U/L (17-59); BLOOD UREA NITROGEN 17 mg/dl (9-20); CALCIUM 7.3 mg/dL (8.4-10.2); GFR NON-AFRICAN AMERICAN > 60
[2018-04-09] MEDS ORDERED: Sodium Chloride 0.9% 500 ML IV ONE (08:00)
--- NOTE | 2018-04-09 08:01 | CP.PCM.PN ---
Subjective - Date & Time of Evaluation Date of Evaluation: 04/09/18 Time of Evaluation: 08:01 - Subjective Subjective: Surgery Progress note- Dr. López Patient seen and examined at bedside. Abdominal pain continuing to improve however moderate pain still present mid-epigastrum. Incisions healing well. Dry 4x4 dressing ontop. NGT output 670cc/24 hours bilious. On TPN. + OOB into chair yesterday. Denies flatus or BM. LLE dressing C/D/I w/ podiatry on board. Glucose better controlled. Consulted service Endocrine; evaluated patient yesterday. now on long acting insulin 12u, and on insulin sliding scale. Denies: fevers, chills, chest pain, shortness of breath, nausea, vomiting, diarrhea Objective - Vital Signs/Intake and Output Vital Signs (last 24 hours): Temp Pulse Resp BP Pulse Ox 97.8 F 88 19 99/61 L 100 04/09/18 00:35 04/09/18 00:35 04/09/18 00:35 04/09/18 00:35 04/09/18 00:35 Intake and Output: 04/09/18 04/09/18 06:59 18:59 Output Total 50 Balance -50 - Medications Medications: Current Medications Acetaminophen (Tylenol 325mg/10.15ml Ud) 325 mg PO Q6 PRN PRN Reason: Pain, Mild (1-3) Albuterol/Ipratropium (Duoneb 3 Mg/0.5 Mg (3 Ml) Ud) 3 ml INH RQ4 PRN PRN Reason: Shortness of Breath Atorvastatin Calcium (Lipitor) 40 mg PO DAILY [facility] Last Admin: 04/08/18 13:17 Dose: 40 mg Carvedilol (Coreg) 25 mg PO Q12 [facility] Last Admin: 04/08/18 21:20 Dose: Not Given Cilostazol (Pletal) 100 mg PO BID [facility] Clotrimazole (Mycelex Sandor) 10 mg MT 5XD [facility] Last Admin: 04/09/18 05:06 Dose: Not Given Enoxaparin Sodium (Lovenox) 40 mg SC DAILY [facility]; Protocol Last Admin: 04/08/18 10:13 Dose: 40 mg Gabapentin (Neurontin) 300 mg PO HS [facility] Last Admin: 04/08/18 23:55 Dose: Not Given Hydromorphone HCl (Dilaudid) 0.5 mg IVP Q4H PRN PRN Reason: Pain, severe (8-10) Last Admin: 04/08/18 23:48 Dose: 0.5 mg Potassium Chloride/Sodium Chloride (Potassium Chl 20 Meq In Ns) 1,000 mls @ 50 mls/hr IV .Q20H [facility] Last Admin: 04/09/18 04:55 Dose: Not Given Sodium Chloride 18 meq/ Sodium Phosphate 7 mmole/ Potassium Chloride 15 meq/ Magnesium Sulfate 3 meq/ Calcium Gluconate 3 meq/ Multivitamins /Vitamin C 10 ml/ Chromium/Copper/Manganese/Zinc 3 ml/Insulin Human Regular 4 units/Amino Acids 1,034.5638 mls @ 55 mls/hr IV .[id number] ONE Stop: 04/09/18 08:03 Last Admin: 04/08/18 21:01 Dose: 55 mls/hr Insulin Detemir (Levemir) 12 units SC Q12@1000,2200 [facility] Last Admin: 04/08/18 21:23 Dose: 12 units Insulin Human Lispro (Humalog) 0 units SC Q6H [facility]; Protocol Last Admin: 04/09/18 06:41 Dose: 1 units Lidocaine HCl (Lidocaine 2% Viscous) 15 ml PO Q4 PRN PRN Reason: Sore Throat Last Admin: 04/07/18 18:25 Dose: 15 ml Losartan Potassium (Cozaar) 50 mg PO DAILY [facility] Last Admin: 04/08/18 13:17 Dose: 50 mg Ondansetron HCl (Zofran Inj) 4 mg IVP Q6 PRN PRN Reason: Nausea/Vomiting Last Admin: 04/03/18 00:06 Dose: 4 mg Pantoprazole Sodium (Protonix Inj) 40 mg IVP DAILY [facility] Last Admin: 04/08/18 09:39 Dose: 40 mg Phenol/Menthol (Phenaseptic 1.4% Throat [place]) 1 spry MT Q2 PRN PRN Reason: Nausea/Vomiting Sodium Hypochlorite (Dakins Solution 0.25%) 0 ml TOP DAILY [facility] Last Admin: 04/08/18 13:38 Dose: 1 u Ticagrelor (Brilinta) 90 mg PO BID [facility] - Labs Labs: 04/09/18 06:21 04/09/18 06:21 PT 13.7 Seconds (9.8-13.1) H 04/01/18 21:53 INR 1.2 04/01/18 21:53 APTT 32.8 Seconds (25.6-37.1) 04/01/18 21:53 - Constitutional Appears: Non-toxic, No Acute Distress, Chronically Ill - Head Exam Head Exam: ATRAUMATIC - Eye Exam Eye Exam: EOMI. absent: Scleral icterus - ENT Exam ENT Exam: Mucous Membranes Moist - Respiratory Exam Respiratory Exam: NORMAL BREATHING PATTERN. absent: Accessory Muscle Use, Respiratory Distress - Cardiovascular Exam Cardiovascular Exam: REGULAR RHYTHM. absent: Bradycardia, Tachycardia - GI/Abdominal Exam GI & Abdominal Exam: Distended (midly distended), Soft, Tenderness (mildly tender mid-line incision). absent: Firm, Guarding, Rigid - Extremities Exam Extremities Exam: absent: Calf Tenderness Additional comments: LLE wrapped dressing C/D/I - Neurological Exam Neurological Exam: Alert, Awake, Oriented x3 - Psychiatric Exam Psychiatric exam: Normal Affect - Skin Skin Exam: Intact, Warm Assessment and Plan - Assessment and Plan (Free Text) Assessment: 62M PMHx of HTN, peripheral vascular disease, uncontrolled diabetes mellitus (not in insulin as pt not agreeable), right AKA, admitted for bowel obstruction; s/p laparotomy lysis of adhesions and resection of ileal perforation with primary anastamosis POD#5 Plan: Small Bowel Obstruction - On TPN - NPO - NGT in place; LCWS - Strict I/O - 1:1 fluid replacement losses w/ NS - anti-emetic and pain control PRN - D/C IVAbx - monitor daily CBC - [facility] Reglan; NGT output improved Uncontrolled Diabetes Mellitus, type 2, with hyperglycemia. - c/s Endocrinology; all recs appreciated - Long acting insulin per Endocrine; 12u Daily - insulin sliding scale - HbA1c 15.4 on 03/25/18. - Non-compliant - will do have insulin injections now Cough - duonebs PRN; cough improved - Aggressive Incentive Spirometry - chest physiotherapy - OOB and into chair - Physical Therapy Hyperkalemia - d/c NS w/ K; change fluids to NS - adjust TPN orders Hypomagnesimia - replete lytes PRN - daily Labs PVD, L Foot ulcer - Chronic - c/s Podiatry; all recs appreciated - daily dressing changes w/ Dakins Chronic normocytic anemia - Stable - Daily CBC. Cachexia -Evident on physical exam -Pt reports significant weight loss in past 3 months -TPN Prophylaxis - Lovenox, and Protonix d/w Dr. López Surgical Attending PGY2
[2018-04-09] MEDS: Sodium Chloride 0.9% 1,000 ML IV SCH (09:00)
[2018-04-09] MEDS: Dakin's Topical 0.25%-Half Strength (480 ml) TOP SCH (09:09)
[2018-04-09] MEDS: Enoxaparin 40 mg Syringe SC SCH (09:10)
[2018-04-09] MEDS: Insulin Detemir 100 Units/ml Inj SC SCH (11:00)
[2018-04-09] MEDS ORDERED: Dextrose 50% SYRINGE Inj (50 ml) ONE (11:14)
[2018-04-09] MEDS ORDERED: Dextrose 50% SYRINGE Inj (50 ml) IVP ONE (11:16)
[2018-04-09] MEDS ORDERED: Glucagon Recombinant 1 mg Inj IM PRN (11:47)
--- NOTE | 2018-04-09 11:55 | CP.PCM.PN ---
Subjective - Date & Time of Evaluation Date of Evaluation: 04/09/18 Time of Evaluation: 09:50 - Subjective Subjective: 62 y/o M was seen and examined by bedside. Pt reports lower abdominal pain is still present and controlled with medications. Pt is not passing gasses and NO BM. Pt on NGT, 670cc output over the last 24 hours. Pt on TPN. Pt denies nausea, vomiting, chest pain, SOB, abdominal pain. No fever overnight. Objective - Vital Signs/Intake and Output Vital Signs (last 24 hours): Temp Pulse Resp BP Pulse Ox 97.8 F 86 19 107/52 L 100 04/09/18 08:22 04/09/18 08:22 04/09/18 08:22 04/09/18 08:22 04/09/18 08:22 Intake and Output: 04/09/18 04/09/18 06:59 18:59 Output Total 50 Balance -50 - Medications Medications: Current Medications Acetaminophen (Tylenol 325mg/10.15ml Ud) 325 mg PO Q6 PRN PRN Reason: Pain, Mild (1-3) Albuterol/Ipratropium (Duoneb 3 Mg/0.5 Mg (3 Ml) Ud) 3 ml INH RQ4 PRN PRN Reason: Shortness of Breath Atorvastatin Calcium (Lipitor) 40 mg PO DAILY [facility] Last Admin: 04/09/18 09:10 Dose: Not Given Carvedilol (Coreg) 25 mg PO Q12 [facility] Last Admin: 04/09/18 09:08 Dose: Not Given Cilostazol (Pletal) 100 mg PO BID [facility] Clotrimazole (Mycelex Sandor) 10 mg MT 5XD [facility] Last Admin: 04/09/18 09:11 Dose: Not Given Dextrose (Dextrose 50% Inj) 0 ml IV STAT PRN; Protocol PRN Reason: Hypoglycemia Protocol Dextrose (Glutose 15) 0 gm PO ONCE PRN; Protocol PRN Reason: Hypoglycemia Protocol Enoxaparin Sodium (Lovenox) 40 mg SC DAILY [facility]; Protocol Last Admin: 04/09/18 09:10 Dose: 40 mg Gabapentin (Neurontin) 300 mg PO HS [facility] Last Admin: 04/08/18 23:55 Dose: Not Given Hydromorphone HCl (Dilaudid) 0.5 mg IVP Q4H PRN PRN Reason: Pain, severe (8-10) Last Admin: 04/08/18 23:48 Dose: 0.5 mg Sodium Chloride (Sodium Chloride 0.9%) 1,000 mls @ 50 mls/hr IV .Q20H [facility] Stop: 04/10/18 08:04 Last Admin: 04/09/18 09:00 Dose: 50 mls/hr Insulin Detemir (Levemir) 12 units SC Q12@1000,2200 [facility] Last Admin: 04/09/18 11:00 Dose: Not Given Insulin Human Lispro (Humalog) 0 units SC Q6H [facility]; Protocol Last Admin: 04/09/18 06:41 Dose: 1 units Lidocaine HCl (Lidocaine 2% Viscous) 15 ml PO Q4 PRN PRN Reason: Sore Throat Last Admin: 04/07/18 18:25 Dose: 15 ml Metoclopramide HCl (Reglan) 10 mg IVP Q6 [facility] Stop: 04/11/18 04:01 Last Admin: 04/09/18 09:12 Dose: 10 mg Ondansetron HCl (Zofran Inj) 4 mg IVP Q6 PRN PRN Reason: Nausea/Vomiting Last Admin: 04/03/18 00:06 Dose: 4 mg Pantoprazole Sodium (Protonix Inj) 40 mg IVP DAILY [facility] Last Admin: 04/09/18 09:12 Dose: 40 mg Phenol/Menthol (Phenaseptic 1.4% Throat [place]) 1 spry MT Q2 PRN PRN Reason: Nausea/Vomiting Sodium Hypochlorite (Dakins Solution 0.25%) 0 ml TOP DAILY [facility] Last Admin: 04/09/18 09:09 Dose: 1 u Ticagrelor (Brilinta) 90 mg PO BID [facility] - Labs Labs: 04/09/18 06:21 04/09/18 06:21 PT 13.7 Seconds (9.8-13.1) H 04/01/18 21:53 INR 1.2 04/01/18 21:53 APTT 32.8 Seconds (25.6-37.1) 04/01/18 21:53 - Constitutional Appears: No Acute Distress - Head Exam Head Exam: ATRAUMATIC, NORMAL INSPECTION - Eye Exam Eye Exam: EOMI - ENT Exam ENT Exam: Mucous Membranes Dry - Neck Exam Neck Exam: Full ROM - Respiratory Exam Respiratory Exam: NORMAL BREATHING PATTERN. absent: Rhonchi, Wheezes, Respiratory Distress - Cardiovascular Exam Cardiovascular Exam: REGULAR RHYTHM, +S1, +S2 - GI/Abdominal Exam GI & Abdominal Exam: Distended, Soft, Tenderness. absent: Firm, Guarding, Rigid Additional comments: mid-vertical abdominal dressing in place clean, dry and intact - Extremities Exam Additional comments: Right AKA. L first toe amputated. Left foot in clean and dry dressing. - Neurological Exam Neurological Exam: Alert, Awake, Oriented x3 Assessment and Plan - Assessment and Plan (Free Text) Assessment: 62 yo with a PMHx of HTN, peripheral vascular disease, uncontrolled diabetes mellitus (not in insulin as pt not agreeable), right AKA, cholecystectomy?, unknown abdominal procedure/surgery?, admitted due to partial SBO. --S/P "exploratory laparoscopy with extensive lysis of adhesion, conversion to laparotomy with resection of small bowel perforation with primary anastomosis." on 04/04/18. PLAN: >Small Bowel Obstruction, POD #5. --Afebrile, HR is decreasing. --General Surgery as primary team, Dr. López. --NPO, NGT, and IV fluids --On IV Zosyn.Zofran PRN, Pantoprazole IVP daily. --Pain control w/ morphine and Dilauid PRN --F/U symptoms --Monitor I and O's >Hyperkalemia --Serum K+ 5.3-high --Losartan was discontinued. --F/U BMP. >Leukocytosis --WBC 14.8-high. --Possibly pain/stress related. --CXR was unremarkable 2 days ago. U/A with neg Leuko esterase and neg nitrates 2 days ago. --Afebrile, VS stable, no SOB. --Continue with IV ZOsyn. --F/U CBC and symptoms. >Uncontrolled Diabetes Mellitus, type 2, with hyperglycemia. --HbA1c 14 today, on 04/09/18 --Insulin sliding scale. --Endocrinology on board, Dr Scanlon --Levemir 12 units Q12H --Hypoglycemia protocol ordered. >Chronic normocytic anemia --POD 5. --Hgb decreased to 8.5 --F/U CBC. >Cachexia -On TPN >PVD, L Foot ulcer --Chronic --Podiatry on board, Dr Pham. --PO meds on hold as per NPO, re-initiate PO Brilinta when PO allowed. >Electrolyte derangement --WNL today. --Monitor electrolytes and replace >Hypertension --Chronic, BP wnl today --Considering IV Vasotec if BP elevates. >Anemia --Chronic, --POD 4. --Monitor CBC >DVT prophylaxis - Lovenox Case discussed with Dr. Frankie Hernández PGY-2
--- NOTE | 2018-04-09 11:59 | PN ---
DATE: 04/09/2018 LOCATION: Room 653. SUBJECTIVE: This is a 62-year-old male with recent uncontrolled type 2 insulin-requiring diabetes, now being followed closely for metabolic management. He presented here with small bowel obstruction and underwent an exploratory laparotomy as noted thereof. He is currently still on TPN infusion for nutritional supplementation as given. His glycemic levels overnight have ranged from 179 to 213 mg/dL. His chemistry showed a BUN of 17, sodium 142, potassium 5.3, chloride 111, CO2 of 24, glucose 121 and creatinine 0.6. So, at this time, we will continue the same basal insulin given as Levemir at 12 units t.i.d. every 12 hours at 10 a.m. and 10 p.m. daily as given. We will continue the modified coverage scale with Humalog insulin as ordered. We will obtain serial chemistries and supplement accordingly as needed. We will follow. Gabi Scanlon MD
--- NOTE | 2018-04-09 12:35 | CP.PCM.PN ---
Subjective - Date & Time of Evaluation Date of Evaluation: 04/09/18 Time of Evaluation: 12:32 - Subjective Subjective: Podiatry progress note - Dr. Pham 62 y/o male seen and evaluated at bedside this AM. Resting comfortably. NG tube in place. Reports mild pain to left foot that has improved since admission. Patient complains of nausea with abdominal pain. Objective - Vital Signs/Intake and Output Vital Signs (last 24 hours): Temp Pulse Resp BP Pulse Ox 97.8 F 86 19 107/52 L 100 04/09/18 08:22 04/09/18 08:22 04/09/18 08:22 04/09/18 08:22 04/09/18 08:22 Intake and Output: 04/09/18 04/09/18 06:59 18:59 Output Total 50 Balance -50 - Medications Medications: Current Medications Acetaminophen (Tylenol 325mg/10.15ml Ud) 325 mg PO Q6 PRN PRN Reason: Pain, Mild (1-3) Albuterol/Ipratropium (Duoneb 3 Mg/0.5 Mg (3 Ml) Ud) 3 ml INH RQ4 PRN PRN Reason: Shortness of Breath Atorvastatin Calcium (Lipitor) 40 mg PO DAILY [facility] Last Admin: 04/09/18 09:10 Dose: Not Given Carvedilol (Coreg) 25 mg PO Q12 [facility] Last Admin: 04/09/18 09:08 Dose: Not Given Cilostazol (Pletal) 100 mg PO BID [facility] Clotrimazole (Mycelex Sandor) 10 mg MT 5XD [facility] Last Admin: 04/09/18 09:11 Dose: Not Given Dextrose (Dextrose 50% Inj) 0 ml IV STAT PRN; Protocol PRN Reason: Hypoglycemia Protocol Dextrose (Glutose 15) 0 gm PO ONCE PRN; Protocol PRN Reason: Hypoglycemia Protocol Enoxaparin Sodium (Lovenox) 40 mg SC DAILY [facility]; Protocol Last Admin: 04/09/18 09:10 Dose: 40 mg Gabapentin (Neurontin) 300 mg PO HS [facility] Last Admin: 04/08/18 23:55 Dose: Not Given Glucagon (Glucagen Diagnostic Kit) 0 mg IM STAT PRN; Protocol PRN Reason: Hypoglycemia Protocol Hydromorphone HCl (Dilaudid) 0.5 mg IVP Q4H PRN PRN Reason: Pain, severe (8-10) Last Admin: 04/08/18 23:48 Dose: 0.5 mg Sodium Chloride (Sodium Chloride 0.9%) 1,000 mls @ 50 mls/hr IV .Q20H [facility] Stop: 04/10/18 08:04 Last Admin: 04/09/18 09:00 Dose: 50 mls/hr Insulin Detemir (Levemir) 12 units SC Q12@1000,2200 [facility] Last Admin: 04/09/18 11:00 Dose: Not Given Insulin Human Lispro (Humalog) 0 units SC Q6H [facility]; Protocol Last Admin: 04/09/18 06:41 Dose: 1 units Lidocaine HCl (Lidocaine 2% Viscous) 15 ml PO Q4 PRN PRN Reason: Sore Throat Last Admin: 04/07/18 18:25 Dose: 15 ml Metoclopramide HCl (Reglan) 10 mg IVP Q6 [facility] Stop: 04/11/18 04:01 Last Admin: 04/09/18 09:12 Dose: 10 mg Ondansetron HCl (Zofran Inj) 4 mg IVP Q6 PRN PRN Reason: Nausea/Vomiting Last Admin: 04/03/18 00:06 Dose: 4 mg Pantoprazole Sodium (Protonix Inj) 40 mg IVP DAILY [facility] Last Admin: 04/09/18 09:12 Dose: 40 mg Phenol/Menthol (Phenaseptic 1.4% Throat [place]) 1 spry MT Q2 PRN PRN Reason: Nausea/Vomiting Sodium Hypochlorite (Dakins Solution 0.25%) 0 ml TOP DAILY [facility] Last Admin: 04/09/18 09:09 Dose: 1 u Ticagrelor (Brilinta) 90 mg PO BID [facility] - Labs Labs: 04/09/18 06:21 04/09/18 06:21 PT 13.7 Seconds (9.8-13.1) H 04/01/18 21:53 INR 1.2 04/01/18 21:53 APTT 32.8 Seconds (25.6-37.1) 04/01/18 21:53 - Constitutional Appears: Well, Non-toxic, No Acute Distress - Head Exam Head Exam: ATRAUMATIC, NORMOCEPHALIC - Extremities Exam Additional comments: LLE focused exam: Vascular: DP non-palpable PT nonpalpable, TG warm to cool, no evidence of edema Ortho: Right AKA, pain to the left ulcer site Neuro: gross sensation intact, protective sensation diminished Derm: arterial non-healing ulcer noted to the left first ray with 30% necrotic and 70% granular base, malodor noted, mild active drainage, no fluctuance, no erythema, no tunneling or tracking, no probe to bone - Neurological Exam Neurological Exam: Alert, Awake, Oriented x3 - Psychiatric Exam Psychiatric exam: Normal Affect, Normal Mood Assessment and Plan - Assessment and Plan (Free Text) Assessment: 62M with left foot nonhealing hallux ulcer Plan: Patient seen and evaluated Discussed in detail with Dr. Pham Chart, labs and vitals reviewed- afebrile, absent leukocytosis Wound cleansed with sterile saline and dressed with dakins and DSD X-ray left foot - irregular navicular, normal post amputation site CT- bulky calcific plaque of the distal common femoral artery extending into the prox SFA and also the profunda. Abnormal course of anterior tibial artery which is otherwise patent Vascular recommendations appreciated- no plan for surgery at this time as patient not medically stable Podiatry will continue to change dressing, no plan for podiatric surgical intervention at this time as patient not medically stable
[2018-04-09] MEDS ORDERED: MULTIVITAMIN IV ONE (17:00)
[2018-04-09] MEDS ORDERED: [UNRECOGNIZED DRUG - OTHER] IV ONE (17:00)
[2018-04-09] MEDS ORDERED: MANGANESE IV ONE (17:00)
[2018-04-09] MEDS ORDERED: ZINC IV ONE (17:00)
[2018-04-09] MEDS ORDERED: CHROMIUM IV ONE (17:00)
[2018-04-09] MEDS ORDERED: COPPER IV ONE (17:00)
[2018-04-10] MEDS: Insulin Lispro (humaLOG) 100 Units/ml Inj SC SCH ×4 (01:04→17:27)
[2018-04-10] MEDS: Sodium Chloride 0.9% 1,000 ML IV SCH (04:26)
--- NOTE | 2018-04-10 06:05 | CP.PCM.PN ---
Subjective - Date & Time of Evaluation Date of Evaluation: 04/10/18 Time of Evaluation: 06:03 - Subjective Subjective: Surgery Patient reports small amount of flatus last night and felt as if he could have a bowel movement this am but no stool yet. He denies f/c. Overnight feeling better today. He denies n/v. Objective - Vital Signs/Intake and Output Vital Signs (last 24 hours): Temp Pulse Resp BP Pulse Ox 98.3 F 81 18 124/82 100 04/10/18 05:00 04/10/18 05:00 04/10/18 05:00 04/10/18 05:00 04/10/18 05:00 Intake and Output: 04/09/18 04/10/18 18:59 06:59 Intake Total 1950 Output Total 1000 Balance 950 - Medications Medications: Current Medications Acetaminophen (Tylenol 325mg/10.15ml Ud) 325 mg PO Q6 PRN PRN Reason: Pain, Mild (1-3) Albuterol/Ipratropium (Duoneb 3 Mg/0.5 Mg (3 Ml) Ud) 3 ml INH RQ4 PRN PRN Reason: Shortness of Breath Atorvastatin Calcium (Lipitor) 40 mg PO DAILY [facility] Last Admin: 04/09/18 09:10 Dose: Not Given Carvedilol (Coreg) 25 mg PO Q12 [facility] Last Admin: 04/09/18 22:26 Dose: Not Given Cilostazol (Pletal) 100 mg PO BID [facility] Clotrimazole (Mycelex Sandor) 10 mg MT 5XD [facility] Last Admin: 04/10/18 04:24 Dose: Not Given Dextrose (Dextrose 50% Inj) 0 ml IV STAT PRN; Protocol PRN Reason: Hypoglycemia Protocol Dextrose (Glutose 15) 0 gm PO ONCE PRN; Protocol PRN Reason: Hypoglycemia Protocol Enoxaparin Sodium (Lovenox) 40 mg SC DAILY [facility]; Protocol Last Admin: 04/09/18 09:10 Dose: 40 mg Gabapentin (Neurontin) 300 mg PO HS [facility] Last Admin: 04/09/18 22:25 Dose: 300 mg Glucagon (Glucagen Diagnostic Kit) 0 mg IM STAT PRN; Protocol PRN Reason: Hypoglycemia Protocol Hydromorphone HCl (Dilaudid) 0.5 mg IVP Q4H PRN PRN Reason: Pain, severe (8-10) Last Admin: 04/09/18 22:20 Dose: 0.5 mg Sodium Chloride (Sodium Chloride 0.9%) 1,000 mls @ 50 mls/hr IV .Q20H [facility] Stop: 04/10/18 08:04 Last Admin: 04/10/18 04:26 Dose: 50 mls/hr Multivitamins/Vitamin C 10 ml/Chromium/Copper/Manganese/Zinc 3 ml/ Insulin Human Regular 4 units/ Amino Acids/Electrolytes/Dextrose 1,013.04 mls @ 55 mls/hr IV .[id number] ONE Stop: 04/10/18 11:25 Last Admin: 04/09/18 17:19 Dose: 55 mls/hr Insulin Detemir (Levemir) 12 units SC Q12@1000,2200 [facility] Last Admin: 04/09/18 11:00 Dose: Not Given Insulin Human Lispro (Humalog) 0 units SC Q6H [facility]; Protocol Last Admin: 04/10/18 01:04 Dose: Not Given Lidocaine HCl (Lidocaine 2% Viscous) 15 ml PO Q4 PRN PRN Reason: Sore Throat Last Admin: 04/07/18 18:25 Dose: 15 ml Metoclopramide HCl (Reglan) 10 mg IVP Q6 [facility] Stop: 04/11/18 04:01 Last Admin: 04/10/18 04:25 Dose: 10 mg Ondansetron HCl (Zofran Inj) 4 mg IVP Q6 PRN PRN Reason: Nausea/Vomiting Last Admin: 04/03/18 00:06 Dose: 4 mg Pantoprazole Sodium (Protonix Inj) 40 mg IVP DAILY [facility] Last Admin: 04/09/18 09:12 Dose: 40 mg Phenol/Menthol (Phenaseptic 1.4% Throat [place]) 1 spry MT Q2 PRN PRN Reason: Nausea/Vomiting Sodium Hypochlorite (Dakins Solution 0.25%) 0 ml TOP DAILY [facility] Last Admin: 04/09/18 09:09 Dose: 1 u Ticagrelor (Brilinta) 90 mg PO BID [facility] - Labs Labs: 04/09/18 06:21 04/09/18 06:21 PT 13.7 Seconds (9.8-13.1) H 04/01/18 21:53 INR 1.2 04/01/18 21:53 APTT 32.8 Seconds (25.6-37.1) 04/01/18 21:53 - Constitutional Appears: Non-toxic, Cachectic, Chronically Ill - Head Exam Head Exam: ATRAUMATIC, NORMOCEPHALIC - Eye Exam Eye Exam: EOMI, Normal appearance - ENT Exam ENT Exam: Mucous Membranes Moist - Respiratory Exam Respiratory Exam: NORMAL BREATHING PATTERN. absent: Respiratory Distress - Cardiovascular Exam Cardiovascular Exam: REGULAR RHYTHM. absent: Tachycardia - GI/Abdominal Exam GI & Abdominal Exam: Soft. absent: Distended, Tenderness Additional comments: incisions CDI with staple closure - Neurological Exam Neurological Exam: Alert, Awake - Psychiatric Exam Psychiatric exam: Normal Affect, Normal Mood - Skin Skin Exam: Dry, Normal Color, Warm Assessment and Plan - Assessment and Plan (Free Text) Assessment: 62M PMHx of HTN, peripheral vascular disease, uncontrolled diabetes mellitus (not in insulin as pt not agreeable), right AKA, admitted for bowel obstruction; s/p laparotomy lysis of adhesions and resection of ileal perforation with primary anastamosis POD#6 Plan: Small Bowel Obstruction - On TPN - NPO - NGT in place; LCWS - Strict I/O - 1:1 fluid replacement losses w/ NS - anti-emetic and pain control PRN - monitor daily electrolytes - MARILU Reglan; NGT output improved Uncontrolled Diabetes Mellitus, type 2, with hyperglycemia. - c/s Endocrinology; all recs appreciated - Long acting insulin per Endocrine; 12u Daily - insulin sliding scale - HbA1c 15.4 Cough - duonebs PRN; cough improved - Aggressive Incentive Spirometry - chest physiotherapy - OOB and into chair - Physical Therapy Hyperkalemia - d/c NS w/ K; change fluids to NS - adjust TPN orders -f/u CMP in am Hypomagnesimia - replete lytes PRN - daily Labs PVD, L Foot ulcer - Chronic - c/s Podiatry; all recs appreciated - daily dressing changes w/ Dakins -no surgical intervention as patient not medically stable Chronic normocytic anemia - Stable - Daily CBC. Cachexia -Evident on physical exam -Pt reports significant weight loss in past 3 months -TPN -will initiate enteral feeds when +bowel function returns Prophylaxis - Lovenox, and Protonix d/w Dr. López Surgical Attending [place] PGY4
[2018-04-10 07:27] LABS: HEMOGLOBIN 9.4 g/dL (12.0-18.0); MEAN CELL VOLUME 87.5 fl (80.0-94.0); MEAN CORPUSCULAR HEMOGLOBIN 28.3 pg (27.0-31.0); MEAN CORPUSCULAR HGB CONC 32.4 g/dL (33.0-37.0); RBC 3.33 Mil/uL (4.40-5.90); RED CELL DISTRIBUTION WIDTH 16.6 % (11.5-14.5); WHITE BLOOD COUNT 19.8 K/uL (4.8-10.8)
[2018-04-10 07:51] LABS: ALB/GLOB RATIO 0.8 (1.0-2.1); ALBUMIN 2.3 g/dL (3.5-5.0); ALT/SGPT 25 U/L (21-72); AST/SGOT 19 U/L (17-59); BLOOD UREA NITROGEN 14 mg/dl (9-20); CALCIUM 8.1 mg/dL (8.4-10.2); GFR NON-AFRICAN AMERICAN > 60
[2018-04-10] MEDS ORDERED: Iohexol 240 (50 ml) PO ONE (09:43)
--- NOTE | 2018-04-10 10:38 | CP.PCM.PN ---
<Dane Hernández - Last Filed: 04/10/18 15:11> Subjective - Date & Time of Evaluation Date of Evaluation: 04/10/18 Time of Evaluation: 09:30 - Subjective Subjective: 62 y/o M was seen and examined by bedside. Pt reports feeling a little better, pt believes he had a faint lower abdominal sensation that felt like a flatus. No bowel movement yet. Pt is NPO, has NGT. Objective - Vital Signs/Intake and Output Vital Signs (last 24 hours): Temp Pulse Resp BP Pulse Ox 97.7 F 75 21 128/72 94 L 04/10/18 08:43 04/10/18 08:43 04/10/18 08:43 04/10/18 08:43 04/10/18 08:43 Intake and Output: 04/10/18 04/10/18 06:59 18:59 Intake Total 1950 1260 Output Total 1000 900 Balance 950 360 - Medications Medications: Current Medications Acetaminophen (Tylenol 325mg/10.15ml Ud) 325 mg PO Q6 PRN PRN Reason: Pain, Mild (1-3) Albuterol/Ipratropium (Duoneb 3 Mg/0.5 Mg (3 Ml) Ud) 3 ml INH RQ4 PRN PRN Reason: Shortness of Breath Atorvastatin Calcium (Lipitor) 40 mg PO DAILY [facility] Last Admin: 04/09/18 09:10 Dose: Not Given Carvedilol (Coreg) 25 mg PO Q12 [facility] Last Admin: 04/09/18 22:26 Dose: Not Given Cilostazol (Pletal) 100 mg PO BID [facility] Clotrimazole (Mycelex Sandor) 10 mg MT 5XD [facility] Last Admin: 04/10/18 04:24 Dose: Not Given Dextrose (Dextrose 50% Inj) 0 ml IV STAT PRN; Protocol PRN Reason: Hypoglycemia Protocol Dextrose (Glutose 15) 0 gm PO ONCE PRN; Protocol PRN Reason: Hypoglycemia Protocol Enoxaparin Sodium (Lovenox) 40 mg SC DAILY [facility]; Protocol Last Admin: 04/09/18 09:10 Dose: 40 mg Gabapentin (Neurontin) 300 mg PO HS [facility] Last Admin: 04/09/18 22:25 Dose: 300 mg Glucagon (Glucagen Diagnostic Kit) 0 mg IM STAT PRN; Protocol PRN Reason: Hypoglycemia Protocol Hydromorphone HCl (Dilaudid) 0.5 mg IVP Q4H PRN PRN Reason: Pain, severe (8-10) Last Admin: 04/09/18 22:20 Dose: 0.5 mg Multivitamins/Vitamin C 10 ml/Chromium/Copper/Manganese/Zinc 3 ml/ Insulin Human Regular 4 units/ Amino Acids/Electrolytes/Dextrose 1,013.04 mls @ 55 mls/hr IV .[id number] ONE Stop: 04/10/18 11:25 Last Admin: 04/09/18 17:19 Dose: 55 mls/hr Piperacillin Sod/Tazobactam (Sod 2.25 gm/ Sodium Chloride) 100 mls @ 100 mls/hr IVPB Q8 [facility]; Protocol Insulin Detemir (Levemir) 12 units SC Q12@1000,2200 [facility] Last Admin: 04/09/18 11:00 Dose: Not Given Insulin Detemir (Levemir) 6 units SC HS [facility] Insulin Human Lispro (Humalog) 0 units SC Q6H [facility]; Protocol Last Admin: 04/10/18 06:02 Dose: 2 units Iohexol (Omnipaque 240 (50 Ml)) 0 ml PO ONCE ONE Stop: 04/10/18 09:44 Lidocaine HCl (Lidocaine 2% Viscous) 15 ml PO Q4 PRN PRN Reason: Sore Throat Last Admin: 04/07/18 18:25 Dose: 15 ml Metoclopramide HCl (Reglan) 10 mg IVP Q6 [facility] Stop: 04/11/18 04:01 Last Admin: 04/10/18 04:25 Dose: 10 mg Ondansetron HCl (Zofran Inj) 4 mg IVP Q6 PRN PRN Reason: Nausea/Vomiting Last Admin: 04/03/18 00:06 Dose: 4 mg Pantoprazole Sodium (Protonix Inj) 40 mg IVP DAILY [facility] Last Admin: 04/09/18 09:12 Dose: 40 mg Phenol/Menthol (Phenaseptic 1.4% Throat [place]) 1 spry MT Q2 PRN PRN Reason: Nausea/Vomiting Sodium Hypochlorite (Dakins Solution 0.25%) 0 ml TOP DAILY [facility] Last Admin: 04/09/18 09:09 Dose: 1 u Ticagrelor (Brilinta) 90 mg PO BID [facility] - Labs Labs: 04/10/18 05:30 04/10/18 05:30 PT 13.7 Seconds (9.8-13.1) H 04/01/18 21:53 INR 1.2 04/01/18 21:53 APTT 32.8 Seconds (25.6-37.1) 04/01/18 21:53 - Additional Findings Additional findings: - Constitutional Appears: No Acute Distress - Head Exam Head Exam: ATRAUMATIC, NORMAL INSPECTION - Eye Exam Eye Exam: EOMI - ENT Exam ENT Exam: Mucous Membranes Dry - Neck Exam Neck Exam: Full ROM - Respiratory Exam Respiratory Exam: NORMAL BREATHING PATTERN. absent: Rhonchi, Wheezes, Respiratory Distress - Cardiovascular Exam Cardiovascular Exam: REGULAR RHYTHM, +S1, +S2 - GI/Abdominal Exam GI & Abdominal Exam: Mildly distended, Soft, Tenderness. Bowel sounds are decreased. Absent: Firm, Guarding, Rigid Additional comments: mid-vertical abdominal dressing in place clean, dry and intact - Extremities Exam Additional comments: Right AKA. L first toe amputated. Left foot in clean and dry dressing. - Neurological Exam Neurological Exam: Alert, Awake, Oriented x3 Assessment and Plan - Assessment and Plan (Free Text) Assessment: 62 yo with a PMHx of HTN, peripheral vascular disease, uncontrolled diabetes mellitus (not in insulin as pt not agreeable), right AKA, cholecystectomy?, unknown abdominal procedure/surgery?, admitted due to partial SBO. --S/P "exploratory laparoscopy with extensive lysis of adhesion, conversion to laparotomy with resection of small bowel perforation with primary anastomosis." on 04/04/18. PLAN: >Small Bowel Obstruction, POD #6. --Afebrile, VSS --General Surgery as primary team, Dr. López. --NPO, NGT, and IV fluids --On IV Zosyn.Zofran PRN, Pantoprazole IVP daily. --Pain control w/ morphine and Dilauid PRN --F/U symptoms --Monitor I and O's >Leukocytosis --WBC 19.8-high. --CXR from today was unremarkable, U/A was WNL. --Afebrile, VS stable, no SOB. --Continue with IV Zosyn. --Considering adding IV antibiotic coverage. --F/U Blood Culture. >Uncontrolled Diabetes Mellitus, type 2, with hyperglycemia. --HbA1c 14 today, on 04/09/18 --Insulin sliding scale. --Endocrinology on board, Dr Scanlon --Hypoglycemia protocol ordered. >Chronic normocytic anemia --POD 6. --Hgb decreased to 8.5 >Cachexia -On TPN >PVD, L Foot ulcer --Chronic --Podiatry on board, Dr Pham. --PO meds on hold as per NPO, re-initiate PO Brilinta when PO allowed. >Electrolyte derangement --WNL today. --Monitor electrolytes and replace >Hypertension --Chronic, BP wnl today --Considering IV Vasotec if BP elevates. >Anemia --Chronic, --POD 4. --Monitor CBC >DVT prophylaxis - Lovenox Case discussed with Dr. Frankie Hernández PGY-2 <Gema Patel - Last Filed: 04/10/18 16:04> Objective - Vital Signs/Intake and Output Vital Signs (last 24 hours): Temp Pulse Resp BP Pulse Ox 97.7 F 75 21 127/66 94 L 04/10/18 08:43 04/10/18 12:23 04/10/18 08:43 04/10/18 12:23 04/10/18 08:43 Intake and Output: 04/10/18 04/10/18 06:59 18:59 Intake Total 1950 1260 Output Total 1000 900 Balance 950 360 - Medications Medications: Current Medications Acetaminophen (Tylenol 325mg/10.15ml Ud) 325 mg PO Q6 PRN PRN Reason: Pain, Mild (1-3) Albuterol/Ipratropium (Duoneb 3 Mg/0.5 Mg (3 Ml) Ud) 3 ml INH RQ4 PRN PRN Reason: Shortness of Breath Atorvastatin Calcium (Lipitor) 40 mg PO DAILY [facility] Last Admin: 04/10/18 12:23 Dose: 40 mg Carvedilol (Coreg) 25 mg PO Q12 [facility] Last Admin: 04/10/18 12:23 Dose: 25 mg Cilostazol (Pletal) 100 mg PO BID [facility] Clotrimazole (Mycelex Sandor) 10 mg MT 5XD [facility] Last Admin: 04/10/18 15:29 Dose: Not Given Dextrose (Dextrose 50% Inj) 0 ml IV STAT PRN; Protocol PRN Reason: Hypoglycemia Protocol Dextrose (Glutose 15) 0 gm PO ONCE PRN; Protocol PRN Reason: Hypoglycemia Protocol Enoxaparin Sodium (Lovenox) 40 mg SC DAILY [facility]; Protocol Last Admin: 04/10/18 12:22 Dose: 40 mg Gabapentin (Neurontin) 300 mg PO HS [facility] Last Admin: 04/09/18 22:25 Dose: 300 mg Glucagon (Glucagen Diagnostic Kit) 0 mg IM STAT PRN; Protocol PRN Reason: Hypoglycemia Protocol Hydromorphone HCl (Dilaudid) 0.5 mg IVP Q4H PRN PRN Reason: Pain, severe (8-10) Last Admin: 04/09/18 22:20 Dose: 0.5 mg Piperacillin Sod/Tazobactam (Sod 2.25 gm/ Sodium Chloride) 100 mls @ 100 mls/hr IVPB Q8 [facility]; Protocol Chromium/Copper/Manganese/Zinc 3 ml/ Multivitamins/Vitamin C 10 ml/ Insulin Human Regular 8 units/ Amino Acids/Electrolytes/Dextrose 1,013.08 mls @ 55 mls/hr IV .[id number] ONE Stop: 04/11/18 08:40 Insulin Detemir (Levemir) 12 units SC Q12@1000,2200 [facility] Last Admin: 04/09/18 11:00 Dose: Not Given Insulin Detemir (Levemir) 6 units SC HS [facility] Insulin Human Lispro (Humalog) 0 units SC Q6H [facility]; Protocol Last Admin: 04/10/18 13:00 Dose: 1 units Lidocaine HCl (Lidocaine 2% Viscous) 15 ml PO Q4 PRN PRN Reason: Sore Throat Last Admin: 04/07/18 18:25 Dose: 15 ml Metoclopramide HCl (Reglan) 10 mg IVP Q6 [facility] Stop: 04/11/18 04:01 Last Admin: 04/10/18 12:21 Dose: 10 mg Ondansetron HCl (Zofran Inj) 4 mg IVP Q6 PRN PRN Reason: Nausea/Vomiting Last Admin: 04/03/18 00:06 Dose: 4 mg Pantoprazole Sodium (Protonix Inj) 40 mg IVP DAILY [facility] Last Admin: 04/10/18 12:21 Dose: 40 mg Phenol/Menthol (Phenaseptic 1.4% Throat [place]) 1 spry MT Q2 PRN PRN Reason: Nausea/Vomiting Sodium Hypochlorite (Dakins Solution 0.25%) 0 ml TOP DAILY [facility] Last Admin: 04/09/18 09:09 Dose: 1 u Ticagrelor (Brilinta) 90 mg PO BID [facility] - Labs Labs: 04/10/18 05:30 04/10/18 05:30 PT 13.7 Seconds (9.8-13.1) H 04/01/18 21:53 INR 1.2 04/01/18 21:53 APTT 32.8 Seconds (25.6-37.1) 04/01/18 21:53 Attending/Attestation - Attestation I have personally seen and examined this patient.: Yes I have fully participated in the care of the patient.: Yes I have reviewed all pertinent clinical information, including history, physical exam and plan: Yes Notes (Text): Ileum Perforation Small Bowel Obstruction s/p Open Laparotomy with adhesiolysis and resection of area of perforated ileum PVD - hx of Right AKA DM type II , very brittle with episodes of Hyperglycemia/Hypoglycemia HTN Anemia of Chronic Dis Chronic Left foot ulcer due to PVD Hypomagnesemia - Pt still NPO with NGT- small flatus, no BM - 100ml NGT drainage - cont TPN - cont IV Zosyn, pt's WBC went up to 19K, however afebrile? adding IV Flagyl - MgSo4 IV - due to episode of hypoglycemia, Endo decreased Levemir to 6 units q hs - accucheck with coverage - DVT proph
[2018-04-10] MEDS: Enoxaparin 40 mg Syringe SC SCH (12:22)
--- NOTE | 2018-04-10 12:31 | RAD ---
Date of service: 04/10/2018 HISTORY: increasing leukocytosis r/o Pneumonia COMPARISON: 04/07/2018. TECHNIQUE: Chest PA and lateral FINDINGS: LUNGS: Stable right lower lobe infiltrate/atelectasis. PLEURA: No significant pleural effusion identified. No pneumothorax apparent. CARDIOVASCULAR: No aortic atherosclerotic calcification present. PICC line in satisfactory position No radiographic findings to suggest acute or significant cardiovascular disease. No pulmonary vascular congestion. OSSEOUS STRUCTURES: No significant abnormalities. VISUALIZED UPPER ABDOMEN: Normal. Free air identified under the right hemidiaphragm on the prior study is not seen with clarity on the current examination. OTHER FINDINGS: Stable position support apparatus including nasogastric tube and PICC line. IMPRESSION: Stable right lower lobe infiltrate. Nonvisualization of previously identified free air.
[2018-04-10] MEDS ORDERED: Magnesium Sulfate 2 gm/50 ml 2 GM/50 ML BAG IVPB ONE (13:36)
[2018-04-10 14:14] LABS: SQUAMOUS EPITHIAL 4 /hpf (0-5); URINE BACTERIA RARE (<OCC); URINE BILIRUBIN NEGATIVE (NEGATIVE); URINE BLOOD SMALL (NEGATIVE); URINE CLARITY SLIGHTY-CLOUDY (Clear); URINE COLOR YELLOW (YELLOW); URINE GLUCOSE (UA) 150 mg/dL (NEGATIVE); URINE LEUKOCYTE ESTERASE NEG Leu/uL (Negative); URINE PROTEIN NEGATIVE (NEGATIVE); URINE UROBILINOGEN 0.2-1.0 mg/dL (0.2-1.0)
[2018-04-10] MEDS ORDERED: COPPER IV ONE (14:15)
[2018-04-10] MEDS ORDERED: ZINC IV ONE (14:15)
[2018-04-10] MEDS ORDERED: [UNRECOGNIZED DRUG - OTHER] IV ONE (14:15)
[2018-04-10] MEDS ORDERED: MANGANESE IV ONE (14:15)
[2018-04-10] MEDS ORDERED: MULTIVITAMIN IV ONE (14:15)
[2018-04-10] MEDS ORDERED: CHROMIUM IV ONE (14:15)
[2018-04-10] MEDS ORDERED: Iohexol 300 100 ML IJ ONE (16:15)
[2018-04-10] MEDS: Piperacillin/Tazobact 3.375 GM in Sodium Chloride 0.9% 100 ML IVPB SCH ×2 (17:26→21:07)
--- NOTE | 2018-04-10 17:33 | CT ---
Date of service: 04/10/2018 PROCEDURE: CT Abdomen and Pelvis with contrast HISTORY: Increasing Leukocytosis; r/o intra-abdominal sourc COMPARISON: 04/02/2018. MRCP. 04/01/2018 CT abdomen and pelvis TECHNIQUE: Intravenous contrast dose: 95 cc Omnipaque 100. Radiation dose: Total exam DLP = 605.77 mGy-cm. This CT exam was performed using one or more of the following dose reduction techniques: Automated exposure control, adjustment of the mA and/or kV according to patient size, and/or use of iterative reconstruction technique. FINDINGS: LOWER THORAX: New small bilateral pleural effusions. Adjacent atelectasis limited to the dependent portions of the lower lobes.. LIVER: Unremarkable liver. Persistent pneumobilia. GALLBLADDER AND BILE DUCTS: Unremarkable. PANCREAS: Atrophic pancreas, CT manifestations suggest chronic pancreatitis. Dilated pancreatic duct in its entirety. SPLEEN: Unremarkable. ADRENALS: Unremarkable. No mass. KIDNEYS AND URETERS: Unremarkable. No hydronephrosis. No solid mass. VASCULATURE: Unremarkable. No aortic aneurysm. Atherosclerotic calcification and mural plaque present. Findings are seen throughout the aorta BOWEL: Evidence of surgical resection and anastomosis right lower quadrant. Persistent dilatation small bowel, less pronounced than that previously and therefore likely postoperative ileus. Constipation, fecal impaction evident. No evidence of mechanical obstruction in the small bowel. APPENDIX: Normal appendix. PERITONEUM: Free intraperitoneal air related to recent surgery. Low volume intra-abdominal and pelvic ascites. No drainable collection. However the absence of oral contrast in mid and distal small bowel and the virtual absence of intra-abdominal and pelvic fat precludes optimal assessment. LYMPH NODES: Unremarkable. No enlarged lymph nodes. BLADDER: Unremarkable. REPRODUCTIVE: Unremarkable. BONES: No acute fracture. OTHER FINDINGS: Worsening edema and anasarca. IMPRESSION: 1. Extensive postoperative changes in the abdomen and pelvis related to bowel resection and colo enteric anastomosis in the right lower quadrant. 2. Postoperative free air noted. 3. Stable pneumobilia. 4. Pancreatic atrophy without an acute inflammatory component. Evidence of chronic pancreatitis remains. 5. Low volume intra-abdominal and pelvic ascites. 6. Worsening edema and anasarca.
[2018-04-10] MEDS ORDERED: Insulin Detemir 100 Units/ml Inj SC SCH (22:00)
[2018-04-11] MEDS: Insulin Lispro (humaLOG) 100 Units/ml Inj SC SCH ×4 (00:19→18:00)
[2018-04-11] MEDS: Piperacillin/Tazobact 3.375 GM in Sodium Chloride 0.9% 100 ML IVPB SCH ×5 (05:00→21:30)
--- NOTE | 2018-04-11 06:01 | CP.PCM.PN ---
Subjective - Date & Time of Evaluation Date of Evaluation: 04/11/18 Time of Evaluation: 05:58 - Subjective Subjective: Surgery Progress note- Dr. López Pt. seen and examined at bedside. Yesterday labs showed elevated luekocytosis. Patient underwent CXR, UA, and CT w/ PO and IV contrast. Afebrile. Patient reports small amount of flatus overnight. this AM small liquid stool. + OOB in chair. Denies f/c. NGT 400cc/12hrs, 700cc/24 Objective - Vital Signs/Intake and Output Vital Signs (last 24 hours): Temp Pulse Resp BP Pulse Ox 97.9 F 83 18 119/63 100 04/10/18 23:54 04/10/18 23:54 04/10/18 23:54 04/10/18 23:54 04/10/18 23:54 Intake and Output: 04/10/18 04/11/18 18:59 06:59 Intake Total 1260 Output Total 2100 Balance -840 - Medications Medications: Current Medications Acetaminophen (Tylenol 325mg/10.15ml Ud) 325 mg PO Q6 PRN PRN Reason: Pain, Mild (1-3) Albuterol/Ipratropium (Duoneb 3 Mg/0.5 Mg (3 Ml) Ud) 3 ml INH RQ4 PRN PRN Reason: Shortness of Breath Atorvastatin Calcium (Lipitor) 40 mg PO DAILY [facility] Last Admin: 04/10/18 12:23 Dose: 40 mg Carvedilol (Coreg) 25 mg PO Q12 [facility] Last Admin: 04/10/18 21:09 Dose: 25 mg Cilostazol (Pletal) 100 mg PO BID [facility] Clotrimazole (Mycelex Sandor) 10 mg MT 5XD [facility] Last Admin: 04/11/18 05:50 Dose: Not Given Dextrose (Dextrose 50% Inj) 0 ml IV STAT PRN; Protocol PRN Reason: Hypoglycemia Protocol Dextrose (Glutose 15) 0 gm PO ONCE PRN; Protocol PRN Reason: Hypoglycemia Protocol Enoxaparin Sodium (Lovenox) 40 mg SC DAILY [facility]; Protocol Last Admin: 04/10/18 12:22 Dose: 40 mg Gabapentin (Neurontin) 300 mg PO HS [facility] Last Admin: 04/10/18 21:09 Dose: 300 mg Glucagon (Glucagen Diagnostic Kit) 0 mg IM STAT PRN; Protocol PRN Reason: Hypoglycemia Protocol Hydromorphone HCl (Dilaudid) 0.5 mg IVP Q4H PRN PRN Reason: Pain, severe (8-10) Last Admin: 04/11/18 05:49 Dose: 0.5 mg Chromium/Copper/Manganese/Zinc 3 ml/ Multivitamins/Vitamin C 10 ml/ Insulin Human Regular 8 units/ Amino Acids/Electrolytes/Dextrose 1,013.08 mls @ 55 mls/hr IV .[id number] ONE Stop: 04/11/18 08:40 Last Admin: 04/10/18 15:38 Dose: 55 mls/hr Piperacillin Sod/Tazobactam (Sod 3.375 gm/ Sodium Chloride) 100 mls @ 100 mls/hr IVPB Q6 [facility]; Protocol Last Admin: 04/11/18 05:00 Dose: 100 mls/hr Insulin Detemir (Levemir) 12 units SC Q12@1000,2200 [facility] Last Admin: 04/09/18 11:00 Dose: Not Given Insulin Detemir (Levemir) 6 units SC HS [facility] Last Admin: 04/10/18 22:01 Dose: 6 units Insulin Human Lispro (Humalog) 0 units SC Q6H [facility]; Protocol Last Admin: 04/11/18 00:19 Dose: Not Given Lidocaine HCl (Lidocaine 2% Viscous) 15 ml PO Q4 PRN PRN Reason: Sore Throat Last Admin: 04/07/18 18:25 Dose: 15 ml Ondansetron HCl (Zofran Inj) 4 mg IVP Q6 PRN PRN Reason: Nausea/Vomiting Last Admin: 04/03/18 00:06 Dose: 4 mg Pantoprazole Sodium (Protonix Inj) 40 mg IVP DAILY [facility] Last Admin: 04/10/18 12:21 Dose: 40 mg Phenol/Menthol (Phenaseptic 1.4% Throat [place]) 1 spry MT Q2 PRN PRN Reason: Nausea/Vomiting Sodium Hypochlorite (Dakins Solution 0.25%) 0 ml TOP DAILY [facility] Last Admin: 04/09/18 09:09 Dose: 1 u Ticagrelor (Brilinta) 90 mg PO BID [facility] - Labs Labs: 04/10/18 05:30 04/10/18 05:30 PT 13.7 Seconds (9.8-13.1) H 04/01/18 21:53 INR 1.2 04/01/18 21:53 APTT 32.8 Seconds (25.6-37.1) 04/01/18 21:53 - Constitutional Appears: Non-toxic, No Acute Distress - Head Exam Head Exam: ATRAUMATIC - Eye Exam Eye Exam: EOMI. absent: Scleral icterus - ENT Exam ENT Exam: Mucous Membranes Moist - Respiratory Exam Respiratory Exam: NORMAL BREATHING PATTERN. absent: Accessory Muscle Use, Respiratory Distress - Cardiovascular Exam Cardiovascular Exam: REGULAR RHYTHM. absent: Bradycardia, Tachycardia - GI/Abdominal Exam GI & Abdominal Exam: Distended (mildly improved), Soft, Tenderness (mildly t chata around midline incision). absent: Firm, Guarding, Rigid - Extremities Exam Additional comments: RLE amputation. LLE dressing C/D/I no strikethrough - Neurological Exam Neurological Exam: Alert, Awake, Oriented x3 - Psychiatric Exam Psychiatric exam: Normal Affect - Skin Skin Exam: Intact, Warm Assessment and Plan - Assessment and Plan (Free Text) Assessment: 62M PMHx of HTN, peripheral vascular disease, uncontrolled diabetes mellitus (not on home insulin as pt not agreeable), right AKA, admitted for bowel obstruction; s/p laparotomy lysis of adhesions and resection of ileal perforation with primary anastamosis POD#7. Currently post -op Ileus Plan: Small Bowel Obstruction - On TPN - NPO - NGT in place; LCWS - Strict I/O - 1:1 fluid replacement losses w/ NS - anti-emetic and pain control PRN - monitor daily electrolytes - [facility] Reglan; NGT output improved - CT on 04/10: dilated rectum w/ stool, no abscess or leak Leukocytosis - restart on Abx; zosyn - CXR 04/10: Lower lobe atalectasis - UA 04/10: negative - CT A/P w/ PO& IV contrast: dilated rectum, dialated smallbowel loops- better than before. anastomotic site intact Post op Ileus - encourage OOB into chair - aggressive physical therapy - monitor bowel function Uncontrolled Diabetes Mellitus, type 2, with hyperglycemia. - c/s Endocrinology; all recs appreciated - Long acting insulin per Endocrine; 12u Daily - insulin sliding scale - HbA1c 15.4 Cough - duonebs PRN; cough improved - Aggressive Incentive Spirometry - chest physiotherapy - OOB and into chair - Physical Therapy Hyperkalemia - d/c NS w/ K; change fluids to NS - adjust TPN orders -f/u CMP in am Hypomagnesimia - replete lytes PRN - daily Labs PVD, L Foot ulcer - Chronic - c/s Podiatry; all recs appreciated - daily dressing changes w/ Dakins -no surgical intervention as patient not medically stable Chronic normocytic anemia - Stable - Daily CBC. Cachexia -Evident on physical exam -Pt reports significant weight loss in past 3 months -TPN -will initiate enteral feeds when +bowel function returns Prophylaxis - Lovenox, and Protonix d/w Dr. López Surgical Attending
[2018-04-11 06:54] LABS: BASO % 0.2 % (0.0-2.0); EOS # 0.4 K/uL (0.0-0.7); EOS % 2.3 % (0.0-4.0); HEMOGLOBIN 8.7 g/dL (12.0-18.0); LYMPH # 2.2 K/uL (1.0-4.3); LYMPH % 13.9 % (20.0-40.0); MEAN CELL VOLUME 87.1 fl (80.0-94.0); MEAN CORPUSCULAR HGB CONC 32.1 g/dL (33.0-37.0); MEAN PLATELET VOLUME 10.1 fl (7.2-11.7); MONO # 0.8 K/uL (0.0-0.8); MONO % 5.2 % (0.0-10.0); NEUT # 12.3 K/uL (1.8-7.0); NEUT % 78.4 % (50.0-75.0); RBC 3.1 Mil/uL (4.40-5.90); RED CELL DISTRIBUTION WIDTH 16.3 % (11.5-14.5); WHITE BLOOD COUNT 15.7 K/uL (4.8-10.8)
[2018-04-11 07:42] LABS: ALB/GLOB RATIO 0.6 (1.0-2.1); ALT/SGPT 17 U/L (21-72); AST/SGOT 16 U/L (17-59); BLOOD UREA NITROGEN 13 mg/dl (9-20); CALCIUM 8.1 mg/dL (8.4-10.2); GFR NON-AFRICAN AMERICAN > 60
[2018-04-11] MEDS ORDERED: Magnesium Sulfate 4 gm/100 ml 4 GM/100 ML BAG IVPB ONE (08:54)
[2018-04-11] MEDS: Dakin's Topical 0.25%-Half Strength (480 ml) TOP SCH (09:02)
[2018-04-11] MEDS: Enoxaparin 40 mg Syringe SC SCH (09:04)
[2018-04-11] MEDS ORDERED: [UNRECOGNIZED DRUG - OTHER] IV ONE (10:15)
[2018-04-11] MEDS ORDERED: MANGANESE IV ONE (10:15)
[2018-04-11] MEDS ORDERED: ZINC IV ONE (10:15)
[2018-04-11] MEDS ORDERED: MULTIVITAMIN IV ONE (10:15)
[2018-04-11] MEDS ORDERED: CHROMIUM IV ONE (10:15)
[2018-04-11] MEDS ORDERED: COPPER IV ONE (10:15)
[2018-04-11] MEDS: Dextrose 50% SYRINGE Inj (50 ml) IV PRN ×2 (10:37→22:14)
--- NOTE | 2018-04-11 11:12 | CP.PCM.PN ---
Subjective - Date & Time of Evaluation Date of Evaluation: 04/11/18 Time of Evaluation: 07:25 - Subjective Subjective: Patient seen and examined bedside, report feeling better today,reports 1 small BM and passing gassess. NGT 400cc/12hrs, 700cc/24. Pt has one episode of asymptomatic hypoglycemia event this morning. BS 54. Insulin levemir stopped will c/w SSI and notify endocrinology. Objective - Vital Signs/Intake and Output Vital Signs (last 24 hours): Temp Pulse Resp BP Pulse Ox 97.7 F 82 19 124/64 100 04/11/18 07:22 04/11/18 08:59 04/11/18 07:22 04/11/18 08:59 04/11/18 07:22 Intake and Output: 04/11/18 04/11/18 06:59 18:59 Output Total 300 Balance -300 - Medications Medications: Current Medications Acetaminophen (Tylenol 325mg/10.15ml Ud) 325 mg PO Q6 PRN PRN Reason: Pain, Mild (1-3) Albuterol/Ipratropium (Duoneb 3 Mg/0.5 Mg (3 Ml) Ud) 3 ml INH RQ4 PRN PRN Reason: Shortness of Breath Atorvastatin Calcium (Lipitor) 40 mg PO DAILY [facility] Last Admin: 04/11/18 09:03 Dose: 40 mg Carvedilol (Coreg) 25 mg PO Q12 [facility] Last Admin: 04/11/18 08:59 Dose: 25 mg Cilostazol (Pletal) 100 mg PO BID [facility] Clotrimazole (Mycelex Sandor) 10 mg MT 5XD [facility] Last Admin: 04/11/18 09:08 Dose: Not Given Dextrose (Dextrose 50% Inj) 0 ml IV STAT PRN; Protocol PRN Reason: Hypoglycemia Protocol Last Admin: 04/11/18 10:37 Dose: 50 ml Dextrose (Glutose 15) 0 gm PO ONCE PRN; Protocol PRN Reason: Hypoglycemia Protocol Enoxaparin Sodium (Lovenox) 40 mg SC DAILY [facility]; Protocol Last Admin: 04/11/18 09:04 Dose: 40 mg Gabapentin (Neurontin) 300 mg PO HS [facility] Last Admin: 04/10/18 21:09 Dose: 300 mg Glucagon (Glucagen Diagnostic Kit) 0 mg IM STAT PRN; Protocol PRN Reason: Hypoglycemia Protocol Hydromorphone HCl (Dilaudid) 0.5 mg IVP Q4H PRN PRN Reason: Pain, severe (8-10) Last Admin: 04/11/18 05:49 Dose: 0.5 mg Piperacillin Sod/Tazobactam (Sod 3.375 gm/ Sodium Chloride) 100 mls @ 100 mls/hr IVPB Q6 [facility]; Protocol Last Admin: 04/11/18 10:34 Dose: 100 mls/hr Chromium/Copper/Manganese/Zinc 3 ml/ Multivitamins/Vitamin C 10 ml/ Insulin Human Regular 8 units/ Amino Acids/Electrolytes/Dextrose 1,013.08 mls @ 55 mls/hr IV .[id number] ONE Stop: 04/12/18 04:40 Insulin Detemir (Levemir) 6 units SC HS [facility] Last Admin: 04/10/18 22:01 Dose: 6 units Insulin Human Lispro (Humalog) 0 units SC Q6H [facility]; Protocol Last Admin: 04/11/18 06:15 Dose: Not Given Lidocaine HCl (Lidocaine 2% Viscous) 15 ml PO Q4 PRN PRN Reason: Sore Throat Last Admin: 04/07/18 18:25 Dose: 15 ml Ondansetron HCl (Zofran Inj) 4 mg IVP Q6 PRN PRN Reason: Nausea/Vomiting Last Admin: 04/03/18 00:06 Dose: 4 mg Pantoprazole Sodium (Protonix Inj) 40 mg IVP DAILY [facility] Last Admin: 04/11/18 09:09 Dose: 40 mg Phenol/Menthol (Phenaseptic 1.4% Throat [place]) 1 spry MT Q2 PRN PRN Reason: Nausea/Vomiting Sodium Hypochlorite (Dakins Solution 0.25%) 0 ml TOP DAILY [facility] Last Admin: 04/11/18 09:02 Dose: 1 u Ticagrelor (Brilinta) 90 mg PO BID [facility] - Labs Labs: 04/11/18 05:30 04/11/18 05:30 PT 13.7 Seconds (9.8-13.1) H 04/01/18 21:53 INR 1.2 04/01/18 21:53 APTT 32.8 Seconds (25.6-37.1) 04/01/18 21:53 - Constitutional Appears: No Acute Distress - Respiratory Exam Respiratory Exam: absent: Rales, Rhonchi, Wheezes - Cardiovascular Exam Cardiovascular Exam: REGULAR RHYTHM, +S1, +S2 - GI/Abdominal Exam GI & Abdominal Exam: Soft, Diminished Bowel Sounds. absent: Tenderness Additional comments: mid-vertical abdominal dressing in place clean, dry and intact - Extremities Exam Additional comments: Right AKA. L first toe amputated. Left foot in clean and dry dressing. - Neurological Exam Neurological Exam: Alert, Awake Assessment and Plan - Assessment and Plan (Free Text) Plan: Assessment 62 yo with a PMHx of HTN, peripheral vascular disease, uncontrolled diabetes mellitus (not in insulin as pt not agreeable), right AKA, cholecystectomy?, unknown abdominal procedure/surgery?, admitted due to partial SBO. --S/P "exploratory laparoscopy with extensive lysis of adhesion, conversion to laparotomy with resection of small bowel perforation with primary anastomosis." on 04/04/18. PLAN: 1)Small Bowel Obstruction, POD #7. --Afebrile, VSS --General Surgery as primary team, Dr. López. --NPO, NGT, and IV fluids --On IV Zosyn.Zofran PRN, Pantoprazole IVP daily. --Pain control w/ morphine and Dilauid PRN --F/U symptoms --Monitor I and O's 2)Leukocytosis --WBC 19.8->15,7 --CXR from was unremarkable, U/A was WNL. --Afebrile, VS stable, no SOB. --Continue with IV Zosyn. --Considering adding IV antibiotic coverage. --Blood Culture no growth 24 h . 3)Uncontrolled Diabetes Mellitus, type 2, with hyperglycemia. --HbA1c 14 , on 04/09/18 --Insulin sliding scale. --Endocrinology on board, Dr Scanlon - on levemir 6 u HS had hypoglycemia today. levemir stopped. --Hypoglycemia protocol 4)Chronic normocytic anemia --POD 7. --Hgb decreased to 8.7 5)Cachexia -On TPN 6)PVD, L Foot ulcer --Chronic --Podiatry on board, Dr Pham. --PO meds on hold as per NPO, re-initiate PO Brilinta when PO allowed. 7)Hypomagnesiemia mg 1,4 -mg 2g iv -f/u mg 8)Hypertension --Chronic, BP wnl today --Considering IV Vasotec if BP elevates. 9) DVT prophylaxis - Lovenox
--- NOTE | 2018-04-11 12:04 | PN ---
DATE: 04/11/2018 ENDOCRINOLOGY FOLLOWUP NOTE SUBJECTIVE: The patient is a 62-year-old male with recent uncontrolled type 2 insulin-requiring diabetes, now being followed closely for metabolic management. He underwent exploratory laparotomy for small bowel obstruction with ongoing TPN, parental infusion is given. His glucose levels have ranged from 125-178 mg/dL. His chemistries showed a BUN of 13, sodium , potassium 3.6, chloride 106, CO2 of 25, and glucose 104, and creatinine of 0.6. PLAN: So, at this time, we will continue with the low dose basal insulin given as Levemir at 6 units subcu at bedtime daily as given. We will continue also the low dose correctional scale with Humalog insulin given every 6 hours as ordered. We will obtain serial chemistries and supplement accordingly as needed. We will follow. Gabi Scanlon MD
--- NOTE | 2018-04-11 13:38 | CP.PCM.PN ---
Subjective - Date & Time of Evaluation Date of Evaluation: 04/11/18 Time of Evaluation: 13:35 - Subjective Subjective: Podiatry progress note - Dr. Pham 62 y/o male seen and evaluated at bedside this AM. Resting comfortably. NG tube in place. Reports mild pain to left foot that has improved since admission. Patient complains of nausea with abdominal pain. Objective - Vital Signs/Intake and Output Vital Signs (last 24 hours): Temp Pulse Resp BP Pulse Ox 97.7 F 82 19 124/64 100 04/11/18 07:22 04/11/18 08:59 04/11/18 07:22 04/11/18 08:59 04/11/18 07:22 Intake and Output: 04/11/18 04/11/18 06:59 18:59 Output Total 300 Balance -300 - Medications Medications: Current Medications Acetaminophen (Tylenol 325mg/10.15ml Ud) 325 mg PO Q6 PRN PRN Reason: Pain, Mild (1-3) Albuterol/Ipratropium (Duoneb 3 Mg/0.5 Mg (3 Ml) Ud) 3 ml INH RQ4 PRN PRN Reason: Shortness of Breath Atorvastatin Calcium (Lipitor) 40 mg PO DAILY [facility] Last Admin: 04/11/18 09:03 Dose: 40 mg Carvedilol (Coreg) 25 mg PO Q12 [facility] Last Admin: 04/11/18 08:59 Dose: 25 mg Cilostazol (Pletal) 100 mg PO BID [facility] Clotrimazole (Mycelex Sandor) 10 mg MT 5XD [facility] Last Admin: 04/11/18 09:08 Dose: Not Given Dextrose (Dextrose 50% Inj) 0 ml IV STAT PRN; Protocol PRN Reason: Hypoglycemia Protocol Last Admin: 04/11/18 10:37 Dose: 50 ml Dextrose (Glutose 15) 0 gm PO ONCE PRN; Protocol PRN Reason: Hypoglycemia Protocol Enoxaparin Sodium (Lovenox) 40 mg SC DAILY [facility]; Protocol Last Admin: 04/11/18 09:04 Dose: 40 mg Gabapentin (Neurontin) 300 mg PO HS [facility] Last Admin: 04/10/18 21:09 Dose: 300 mg Glucagon (Glucagen Diagnostic Kit) 0 mg IM STAT PRN; Protocol PRN Reason: Hypoglycemia Protocol Hydromorphone HCl (Dilaudid) 0.5 mg IVP Q4H PRN PRN Reason: Pain, severe (8-10) Last Admin: 04/11/18 05:49 Dose: 0.5 mg Piperacillin Sod/Tazobactam (Sod 3.375 gm/ Sodium Chloride) 100 mls @ 100 mls/hr IVPB Q6 [facility]; Protocol Last Admin: 04/11/18 10:34 Dose: 100 mls/hr Chromium/Copper/Manganese/Zinc 3 ml/ Multivitamins/Vitamin C 10 ml/ Insulin Human Regular 8 units/ Amino Acids/Electrolytes/Dextrose 1,013.08 mls @ 55 mls/hr IV .[id number] ONE Stop: 04/12/18 04:40 Last Admin: 04/11/18 11:25 Dose: 55 mls/hr Insulin Detemir (Levemir) 6 units SC HS [facility] Last Admin: 04/10/18 22:01 Dose: 6 units Insulin Human Lispro (Humalog) 0 units SC Q6H [facility]; Protocol Last Admin: 04/11/18 12:28 Dose: Not Given Lidocaine HCl (Lidocaine 2% Viscous) 15 ml PO Q4 PRN PRN Reason: Sore Throat Last Admin: 04/07/18 18:25 Dose: 15 ml Ondansetron HCl (Zofran Inj) 4 mg IVP Q6 PRN PRN Reason: Nausea/Vomiting Last Admin: 04/03/18 00:06 Dose: 4 mg Pantoprazole Sodium (Protonix Inj) 40 mg IVP DAILY [facility] Last Admin: 04/11/18 09:09 Dose: 40 mg Phenol/Menthol (Phenaseptic 1.4% Throat [place]) 1 spry MT Q2 PRN PRN Reason: Nausea/Vomiting Sodium Hypochlorite (Dakins Solution 0.25%) 0 ml TOP DAILY [facility] Last Admin: 04/11/18 09:02 Dose: 1 u Ticagrelor (Brilinta) 90 mg PO BID [facility] - Labs Labs: 04/11/18 05:30 04/11/18 05:30 PT 13.7 Seconds (9.8-13.1) H 04/01/18 21:53 INR 1.2 04/01/18 21:53 APTT 32.8 Seconds (25.6-37.1) 04/01/18 21:53 - Constitutional Appears: Well, Non-toxic - Head Exam Head Exam: ATRAUMATIC - Extremities Exam Additional comments: LLE focused exam: Vascular: DP non-palpable PT nonpalpable, TG warm to cool, no evidence of edema Ortho: Right AKA, pain to the left ulcer site Neuro: gross sensation intact, protective sensation diminished Derm: arterial non-healing ulcer noted to the left first ray with 30% necrotic and 70% granular base, malodor noted, mild active drainage, no fluctuance, no erythema, no tunneling or tracking, no probe to bone Assessment and Plan - Assessment and Plan (Free Text) Assessment: 62M with left foot nonhealing hallux ulcer Plan: Patient seen and evaluated Discussed in detail with Dr. Pham Chart, labs and vitals reviewed- afebrile, absent leukocytosis Wound cleansed with sterile saline and dressed with dakins and DSD X-ray left foot - irregular navicular, normal post amputation site CT- bulky calcific plaque of the distal common femoral artery extending into the prox SFA and also the profunda. Abnormal course of anterior tibial artery which is otherwise patent Vascular recommendations appreciated- no plan for surgery at this time as patient not medically stable Podiatry will continue to change dressing, no plan for podiatric surgical intervention at this time as patient not medically stable
[2018-04-11] MEDS ORDERED: DEX E IV ONE (23:45)
[2018-04-11] MEDS ORDERED: INSULIN HUMAN REGULAR IV ONE (23:45)
[2018-04-11] MEDS ORDERED: AMINO IV ONE (23:45)
[2018-04-12] MEDS: Insulin Lispro (humaLOG) 100 Units/ml Inj SC SCH ×5 (01:04→23:52)
[2018-04-12] MEDS: Piperacillin/Tazobact 3.375 GM in Sodium Chloride 0.9% 100 ML IVPB SCH ×4 (04:31→21:20)
[2018-04-12] MEDS: Dextrose 50% SYRINGE Inj (50 ml) IV PRN ×2 (05:26→10:15)
[2018-04-12] MEDS ORDERED: Dextrose 5%/0.9% NS 1,000 ML IV SCH (05:30)
[2018-04-12] MEDS ORDERED: DEX E IV ONE (06:00)
[2018-04-12] MEDS ORDERED: INSULIN HUMAN REGULAR IV ONE (06:00)
[2018-04-12] MEDS ORDERED: AMINO IV ONE (06:00)
[2018-04-12 07:16] LABS: BASO % 0.2 % (0.0-2.0); EOS # 0.3 K/uL (0.0-0.7); EOS % 2.3 % (0.0-4.0); HEMOGLOBIN 8.9 g/dL (12.0-18.0); LYMPH % 14.5 % (20.0-40.0); MEAN CELL VOLUME 87.2 fl (80.0-94.0); MEAN CORPUSCULAR HEMOGLOBIN 28.5 pg (27.0-31.0); MEAN CORPUSCULAR HGB CONC 32.7 g/dL (33.0-37.0); MEAN PLATELET VOLUME 10.2 fl (7.2-11.7); MONO # 0.7 K/uL (0.0-0.8); NEUT # 10.6 K/uL (1.8-7.0); RBC 3.11 Mil/uL (4.40-5.90); RED CELL DISTRIBUTION WIDTH 16.3 % (11.5-14.5); WHITE BLOOD COUNT 13.6 K/uL (4.8-10.8)
[2018-04-12 07:41] LABS: ALB/GLOB RATIO 0.7 (1.0-2.1); ALBUMIN 2.3 g/dL (3.5-5.0); ALT/SGPT 14 U/L (21-72); AST/SGOT 16 U/L (17-59); BLOOD UREA NITROGEN 12 mg/dl (9-20); CALCIUM 8.2 mg/dL (8.4-10.2); GFR NON-AFRICAN AMERICAN > 60
--- NOTE | 2018-04-12 08:38 | CP.PCM.PN ---
Subjective - Date & Time of Evaluation Date of Evaluation: 04/12/18 Time of Evaluation: 08:38 - Subjective Subjective: Surgery Progress note- Dr. López Pt. seen and examined at bedside. Yesterday labs showed elevated luekocytosis currently trending down. Afebrile. Patient reports flatus overnight. this AM and BM overnight. ABD pain significantly improved + OOB in chair. Denies f/c. NGT 100cc/12hrs Objective - Vital Signs/Intake and Output Vital Signs (last 24 hours): Temp Pulse Resp BP Pulse Ox 97.5 F L 80 19 133/64 100 04/12/18 08:18 04/12/18 08:18 04/12/18 08:18 04/12/18 08:18 04/12/18 08:18 Intake and Output: 04/12/18 04/12/18 06:59 18:59 Output Total 250 Balance -250 - Medications Medications: Current Medications Acetaminophen (Tylenol 325mg/10.15ml Ud) 325 mg PO Q6 PRN PRN Reason: Pain, Mild (1-3) Albuterol/Ipratropium (Duoneb 3 Mg/0.5 Mg (3 Ml) Ud) 3 ml INH RQ4 PRN PRN Reason: Shortness of Breath Atorvastatin Calcium (Lipitor) 40 mg PO DAILY [facility] Last Admin: 04/11/18 09:03 Dose: 40 mg Carvedilol (Coreg) 25 mg PO Q12 [facility] Last Admin: 04/11/18 21:30 Dose: 25 mg Cilostazol (Pletal) 100 mg PO BID [facility] Clotrimazole (Mycelex Sandor) 10 mg MT 5XD [facility] Last Admin: 04/12/18 04:31 Dose: Not Given Dextrose (Dextrose 50% Inj) 0 ml IV STAT PRN; Protocol PRN Reason: Hypoglycemia Protocol Last Admin: 04/12/18 05:26 Dose: 50 ml Dextrose (Glutose 15) 0 gm PO ONCE PRN; Protocol PRN Reason: Hypoglycemia Protocol Enoxaparin Sodium (Lovenox) 40 mg SC DAILY [facility]; Protocol Last Admin: 04/11/18 09:04 Dose: 40 mg Gabapentin (Neurontin) 300 mg PO HS [facility] Last Admin: 04/11/18 21:30 Dose: 300 mg Glucagon (Glucagen Diagnostic Kit) 0 mg IM STAT PRN; Protocol PRN Reason: Hypoglycemia Protocol Hydromorphone HCl (Dilaudid) 0.5 mg IVP Q4H PRN PRN Reason: Pain, severe (8-10) Last Admin: 04/12/18 08:20 Dose: 0.5 mg Piperacillin Sod/Tazobactam (Sod 3.375 gm/ Sodium Chloride) 100 mls @ 100 mls/hr IVPB Q6 [facility]; Protocol Last Admin: 04/12/18 04:31 Dose: 100 mls/hr Insulin Human Regular 8 units/Amino Acids/Electrolytes/Dextrose 1,000.08 mls @ 55 mls/hr IV .[id number] ONE Stop: 04/13/18 00:10 Last Admin: 04/12/18 05:47 Dose: 55 mls/hr Dextrose/Sodium Chloride (Dextrose 5%/0.9% Ns 1000 Ml) 1,000 mls @ 50 mls/hr IV .Q20H [facility] Stop: 04/13/18 05:28 Last Admin: 04/12/18 05:46 Dose: 50 mls/hr Insulin Human Lispro (Humalog) 0 units SC Q6H [facility]; Protocol Last Admin: 04/12/18 01:04 Dose: Not Given Lidocaine HCl (Lidocaine 2% Viscous) 15 ml PO Q4 PRN PRN Reason: Sore Throat Last Admin: 04/07/18 18:25 Dose: 15 ml Ondansetron HCl (Zofran Inj) 4 mg IVP Q6 PRN PRN Reason: Nausea/Vomiting Last Admin: 04/03/18 00:06 Dose: 4 mg Pantoprazole Sodium (Protonix Inj) 40 mg IVP DAILY [facility] Last Admin: 04/11/18 09:09 Dose: 40 mg Phenol/Menthol (Phenaseptic 1.4% Throat [place]) 1 spry MT Q2 PRN PRN Reason: Nausea/Vomiting Sodium Hypochlorite (Dakins Solution 0.25%) 0 ml TOP DAILY [facility] Last Admin: 04/11/18 09:02 Dose: 1 u Ticagrelor (Brilinta) 90 mg PO BID [facility] - Labs Labs: 04/12/18 06:50 04/12/18 06:50 PT 13.7 Seconds (9.8-13.1) H 04/01/18 21:53 INR 1.2 04/01/18 21:53 APTT 32.8 Seconds (25.6-37.1) 04/01/18 21:53 - Constitutional Appears: Cachectic, Chronically Ill - Head Exam Head Exam: ATRAUMATIC - Eye Exam Eye Exam: EOMI. absent: Scleral icterus - ENT Exam ENT Exam: Mucous Membranes Moist - Respiratory Exam Respiratory Exam: NORMAL BREATHING PATTERN. absent: Accessory Muscle Use, Respiratory Distress - Cardiovascular Exam Cardiovascular Exam: REGULAR RHYTHM. absent: Bradycardia, Tachycardia - GI/Abdominal Exam GI & Abdominal Exam: Soft, Tenderness (mildly tender around incisions. no erythema or discharge). absent: Distended, Firm, Guarding, Rigid Additional comments: midline incision healing well - Extremities Exam Extremities Exam: absent: Calf Tenderness - Back Exam Additional comments: RLE amputation LLE dressign C/D/I - Neurological Exam Neurological Exam: Alert, Awake, Oriented x3 - Psychiatric Exam Psychiatric exam: Normal Affect - Skin Skin Exam: Intact, Warm Assessment and Plan - Assessment and Plan (Free Text) Assessment: 62M PMHx of HTN, peripheral vascular disease, uncontrolled diabetes mellitus (not on home insulin as pt not agreeable), right AKA, admitted for bowel obstruction; s/p laparotomy lysis of adhesions and resection of ileal perforation with primary anastamosis POD#8. Currently post -op Ileus resolving Plan: Small Bowel Obstruction - ABXray 2 views for progression of contrast - pending results of xray, plan to pull NGT and start on CLD - On TPN - NPO - NGT in place; LCWS - Strict I/O - 1:1 fluid replacement losses w/ NS - anti-emetic and pain control PRN - monitor daily electrolytes - [facility] Reglan; NGT output improved- will D/C NGT - CT on 04/10: dilated rectum w/ stool, no abscess or leak Leukocytosis - restart on Abx; zosyn - CXR 04/10: Lower lobe atalectasis - UA 04/10: negative - CT A/P w/ PO& IV contrast: dilated rectum, dialated smallbowel loops- better than before. anastomotic site intact Post op Ileus - encourage OOB into chair - aggressive physical therapy - monitor bowel function; + flatus - ABX for progression of contrast; plan to pull NGT today and start clears Uncontrolled Diabetes Mellitus, type 2, with hyperglycemia. - c/s Endocrinology; all recs appreciated - long acting insulin D/C'd; c/w sliding scale - insulin sliding scale - HbA1c 15.4 Cough - duonebs PRN; cough improved - Aggressive Incentive Spirometry - chest physiotherapy - OOB and into chair - Physical Therapy - CXR shows atalectasis Hyperkalemia - d/c NS w/ K; change fluids to NS - adjust TPN orders - f/u CMP in am - replete lyts PRN Hypomagnesimia - replete lytes PRN - daily Labs PVD, L Foot ulcer - Chronic - c/s Podiatry; all recs appreciated - daily dressing changes w/ Dakins - no surgical intervention as patient not medically stable - may plan for debridement once improved clinically Chronic normocytic anemia - Stable - Daily CBC. Cachexia -Evident on physical exam -Pt reports significant weight loss in past 3 months -TPN -will initiate enteral feeds when +bowel function returns Prophylaxis - Lovenox, and Protonix d/w Dr. López Surgical Attending
[2018-04-12] MEDS: Enoxaparin 40 mg Syringe SC SCH (08:44)
--- NOTE | 2018-04-12 08:54 | PN ---
DATE: 04/10/2018 ENDO FOLLOWUP NOTE SUBJECTIVE: This is a 62-year-old male with recent exploratory laparotomy for small bowel obstruction and currently n.p.o. with ongoing TPN infusion as noted thereof. His . LABORATORY DATA: His latest chemistry showed a BUN of . ASSESSMENT: So at this time, we had actually discontinued the basal insulin given twice a day with Levemir at 12 units as ordered. However, now we will restart given as 6 units at bedtime daily as given. We will obtain serial chemistries and supplement accordingly as needed. We will follow. Gabi Scanlon MD
--- NOTE | 2018-04-12 09:10 | RAD ---
Date of service: 04/12/2018 HISTORY: progression of contrast COMPARISON: Portable abdomen radiograph 04/03/2018. FINDINGS: BOWEL: Nonobstructive bowel gas pattern identified. Oral contrast identified within bowel at the right lower quadrant. Skin babita identified at the lower anterior abdominal wall and surgical clips are reiterated at the right upper quadrant abdomen. Nasogastric tube terminates at left upper quadrant abdomen. No large volume free intra peritoneal gas collection identified. Airspace disease noted left base incidentally. BONES: Normal. OTHER FINDINGS: None. IMPRESSION: Nonobstructive bowel gas pattern evident. Nasogastric tube left upper quadrant abdomen. Abdomen wall skin babita noted and incidental patchy density left base noted.
[2018-04-12] MEDS: Dakin's Topical 0.25%-Half Strength (480 ml) TOP SCH (09:23)
--- NOTE | 2018-04-12 11:50 | CP.PCM.PN ---
<Dane Hernández - Last Filed: 04/12/18 12:17> Subjective - Date & Time of Evaluation Date of Evaluation: 04/12/18 Time of Evaluation: 10:30 - Subjective Subjective: 62 y/o M was seen and examined by bedside. Pt reports feeling a little better. NO NGT in place. Pt reports passing gasses, has had about 3 formed bowel movements since yesterday. Pt afebrile with NO acute events. Objective - Vital Signs/Intake and Output Vital Signs (last 24 hours): Temp Pulse Resp BP Pulse Ox 97.5 F L 80 19 133/64 100 04/12/18 08:18 04/12/18 08:45 04/12/18 08:18 04/12/18 08:45 04/12/18 08:18 Intake and Output: 04/12/18 04/12/18 06:59 18:59 Output Total 250 Balance -250 - Medications Medications: Current Medications Acetaminophen (Tylenol 325mg/10.15ml Ud) 325 mg PO Q6 PRN PRN Reason: Pain, Mild (1-3) Albuterol/Ipratropium (Duoneb 3 Mg/0.5 Mg (3 Ml) Ud) 3 ml INH RQ4 PRN PRN Reason: Shortness of Breath Atorvastatin Calcium (Lipitor) 40 mg PO DAILY [facility] Last Admin: 04/12/18 08:45 Dose: 40 mg Carvedilol (Coreg) 25 mg PO Q12 [facility] Last Admin: 04/12/18 08:45 Dose: 25 mg Cilostazol (Pletal) 100 mg PO BID [facility] Clotrimazole (Mycelex Sandor) 10 mg MT 5XD [facility] Last Admin: 04/12/18 04:31 Dose: Not Given Dextrose (Dextrose 50% Inj) 0 ml IV STAT PRN; Protocol PRN Reason: Hypoglycemia Protocol Last Admin: 04/12/18 05:26 Dose: 50 ml Dextrose (Glutose 15) 0 gm PO ONCE PRN; Protocol PRN Reason: Hypoglycemia Protocol Enoxaparin Sodium (Lovenox) 40 mg SC DAILY [facility]; Protocol Last Admin: 04/12/18 08:44 Dose: 40 mg Gabapentin (Neurontin) 300 mg PO HS [facility] Last Admin: 04/11/18 21:30 Dose: 300 mg Glucagon (Glucagen Diagnostic Kit) 0 mg IM STAT PRN; Protocol PRN Reason: Hypoglycemia Protocol Hydromorphone HCl (Dilaudid) 0.5 mg IVP Q4H PRN PRN Reason: Pain, severe (8-10) Last Admin: 04/12/18 08:20 Dose: 0.5 mg Piperacillin Sod/Tazobactam (Sod 3.375 gm/ Sodium Chloride) 100 mls @ 100 mls/hr IVPB Q6 [facility]; Protocol Last Admin: 04/12/18 09:18 Dose: 100 mls/hr Insulin Human Regular 8 units/Amino Acids/Electrolytes/Dextrose 1,000.08 mls @ 55 mls/hr IV .[id number] ONE Stop: 04/13/18 00:10 Last Admin: 04/12/18 05:47 Dose: 55 mls/hr Dextrose/Sodium Chloride (Dextrose 5%/0.9% Ns 1000 Ml) 1,000 mls @ 50 mls/hr IV .Q20H [facility] Stop: 04/13/18 05:28 Last Admin: 04/12/18 05:46 Dose: 50 mls/hr Insulin Human Lispro (Humalog) 0 units SC Q6H [facility]; Protocol Last Admin: 04/12/18 01:04 Dose: Not Given Lidocaine HCl (Lidocaine 2% Viscous) 15 ml PO Q4 PRN PRN Reason: Sore Throat Last Admin: 04/07/18 18:25 Dose: 15 ml Ondansetron HCl (Zofran Inj) 4 mg IVP Q6 PRN PRN Reason: Nausea/Vomiting Last Admin: 04/03/18 00:06 Dose: 4 mg Pantoprazole Sodium (Protonix Inj) 40 mg IVP DAILY [facility] Last Admin: 04/12/18 08:45 Dose: 40 mg Phenol/Menthol (Phenaseptic 1.4% Throat [place]) 1 spry MT Q2 PRN PRN Reason: Nausea/Vomiting Sodium Hypochlorite (Dakins Solution 0.25%) 0 ml TOP DAILY [facility] Last Admin: 04/12/18 09:23 Dose: 1 u Ticagrelor (Brilinta) 90 mg PO BID [facility] - Labs Labs: 04/12/18 06:50 04/12/18 06:50 PT 13.7 Seconds (9.8-13.1) H 04/01/18 21:53 INR 1.2 04/01/18 21:53 APTT 32.8 Seconds (25.6-37.1) 04/01/18 21:53 - Constitutional Appears: No Acute Distress - Head Exam Head Exam: ATRAUMATIC, NORMAL INSPECTION - Eye Exam Eye Exam: EOMI - ENT Exam ENT Exam: Mucous Membranes Dry - Neck Exam Neck Exam: Full ROM. absent: Meningismus - Respiratory Exam Respiratory Exam: NORMAL BREATHING PATTERN - Cardiovascular Exam Cardiovascular Exam: REGULAR RHYTHM, +S1, +S2 - GI/Abdominal Exam GI & Abdominal Exam: Soft, Tenderness (diffuse. ). absent: Distended, Guarding, Rigid - Extremities Exam Extremities Exam: absent: Pedal Edema, Tenderness - Neurological Exam Neurological Exam: Alert, Awake, Oriented x3 Assessment and Plan - Assessment and Plan (Free Text) Assessment: 62 yo with a PMHx of HTN, peripheral vascular disease, uncontrolled diabetes mellitus (not in insulin as pt not agreeable), right AKA, cholecystectomy?, unknown abdominal procedure/surgery?, admitted due to partial SBO. --S/P "exploratory laparoscopy with extensive lysis of adhesion, conversion to laparotomy with resection of small bowel perforation with primary anastomosis." on 04/04/18. PLAN: >Small Bowel Obstruction, POD #6. --Afebrile, VSS --General Surgery as primary team, Dr. López. --NPO, NGT discontinued, continue with TPN. --On IV Zosyn, Zofran PRN, Pantoprazole IVP daily. --Pain control w/ morphine and Dilauid PRN --Monitor I and O's >Leukocytosis --WBC trending down: 13.6. --Afebrile, VS stable, no SOB. --Continue with IV Zosyn. --Blood Culture negative after 48 hours. >Uncontrolled Diabetes Mellitus, type 2, with hyperglycemia. --HbA1c 14 today, on 04/09/18 --Insulin sliding scale. --Endocrinology on board, Dr Scanlon --Hypoglycemia protocol ordered. >Chronic normocytic anemia --POD 6. --Hgb decreased to 8.5 >Cachexia -C/w TPN >PVD, L Foot ulcer --Chronic --Podiatry on board, Dr Pham. --PO meds on hold as per NPO, re-initiate PO Brilinta when PO allowed. >Hypertension --Chronic, BP wnl today --Considering IV Vasotec if BP elevates. >Anemia --Chronic, --POD 4. --Monitor CBC >DVT prophylaxis - Lovenox Case discussed with Dr Jorge Hernández PGY-2 <Gema Patel - Last Filed: 04/12/18 14:49> Objective - Vital Signs/Intake and Output Vital Signs (last 24 hours): Temp Pulse Resp BP Pulse Ox 97.5 F L 80 19 133/64 100 04/12/18 08:18 04/12/18 08:45 04/12/18 08:18 04/12/18 08:45 04/12/18 08:18 Intake and Output: 04/12/18 04/12/18 06:59 18:59 Output Total 250 Balance -250 - Medications Medications: Current Medications Acetaminophen (Tylenol 325mg/10.15ml Ud) 325 mg PO Q6 PRN PRN Reason: Pain, Mild (1-3) Albuterol/Ipratropium (Duoneb 3 Mg/0.5 Mg (3 Ml) Ud) 3 ml INH RQ4 PRN PRN Reason: Shortness of Breath Atorvastatin Calcium (Lipitor) 40 mg PO DAILY [facility] Last Admin: 04/12/18 08:45 Dose: 40 mg Carvedilol (Coreg) 25 mg PO Q12 [facility] Last Admin: 04/12/18 08:45 Dose: 25 mg Cilostazol (Pletal) 100 mg PO BID [facility] Clotrimazole (Mycelex Sandor) 10 mg MT 5XD [facility] Last Admin: 04/12/18 12:59 Dose: Not Given Dextrose (Dextrose 50% Inj) 0 ml IV STAT PRN; Protocol PRN Reason: Hypoglycemia Protocol Last Admin: 04/12/18 05:26 Dose: 50 ml Dextrose (Glutose 15) 0 gm PO ONCE PRN; Protocol PRN Reason: Hypoglycemia Protocol Enoxaparin Sodium (Lovenox) 40 mg SC DAILY [facility]; Protocol Last Admin: 04/12/18 08:44 Dose: 40 mg Gabapentin (Neurontin) 300 mg PO HS [facility] Last Admin: 04/11/18 21:30 Dose: 300 mg Glucagon (Glucagen Diagnostic Kit) 0 mg IM STAT PRN; Protocol PRN Reason: Hypoglycemia Protocol Hydromorphone HCl (Dilaudid) 0.5 mg IVP Q4H PRN PRN Reason: Pain, severe (8-10) Last Admin: 04/12/18 08:20 Dose: 0.5 mg Piperacillin Sod/Tazobactam (Sod 3.375 gm/ Sodium Chloride) 100 mls @ 100 mls/hr IVPB Q6 [facility]; Protocol Last Admin: 04/12/18 09:18 Dose: 100 mls/hr Insulin Human Regular 8 units/Amino Acids/Electrolytes/Dextrose 1,000.08 mls @ 55 mls/hr IV .[id number] ONE Stop: 04/13/18 00:10 Last Admin: 04/12/18 05:47 Dose: 55 mls/hr Dextrose/Sodium Chloride (Dextrose 5%/0.9% Ns 1000 Ml) 1,000 mls @ 50 mls/hr IV .Q20H [facility] Stop: 04/13/18 05:28 Last Admin: 04/12/18 05:46 Dose: 50 mls/hr Multivitamins/Vitamin C 10 ml/Chromium/Copper/Manganese/Zinc 3 ml/ Amino Acids/Electrolytes/Dextrose 1,013 mls @ 40 mls/hr IV .Q24H ONE Stop: 04/13/18 14:29 Insulin Human Lispro (Humalog) 0 units SC Q6H [facility]; Protocol Last Admin: 04/12/18 13:01 Dose: Not Given Lidocaine HCl (Lidocaine 2% Viscous) 15 ml PO Q4 PRN PRN Reason: Sore Throat Last Admin: 04/07/18 18:25 Dose: 15 ml Ondansetron HCl (Zofran Inj) 4 mg IVP Q6 PRN PRN Reason: Nausea/Vomiting Last Admin: 04/03/18 00:06 Dose: 4 mg Pantoprazole Sodium (Protonix Inj) 40 mg IVP DAILY [facility] Last Admin: 04/12/18 08:45 Dose: 40 mg Phenol/Menthol (Phenaseptic 1.4% Throat [place]) 1 spry MT Q2 PRN PRN Reason: Nausea/Vomiting Sodium Hypochlorite (Dakins Solution 0.25%) 0 ml TOP DAILY [facility] Last Admin: 04/12/18 09:23 Dose: 1 u Ticagrelor (Brilinta) 90 mg PO BID [facility] - Labs Labs: 04/12/18 06:50 04/12/18 06:50 PT 13.7 Seconds (9.8-13.1) H 04/01/18 21:53 INR 1.2 04/01/18 21:53 APTT 32.8 Seconds (25.6-37.1) 04/01/18 21:53 Attending/Attestation - Attestation I have personally seen and examined this patient.: Yes I have fully participated in the care of the patient.: Yes I have reviewed all pertinent clinical information, including history, physical exam and plan: Yes Notes (Text): Small Bowel Obstruction Ileum Perforation s/p Open Laparotomy with adhesiolysis and resection of area of perforated ileum PVD - hx of Right AKA DM type II , very brittle with episodes of Hyperglycemia/Hypoglycemia HTN Anemia of Chronic Dis Chronic Left foot ulcer due to PVD Hypoglycemia - Pt still NPO, but NGT d/c , -Pt had BM - cont TPN, d/c Insulin in TPN due to hypoglycemia - cont IV Zosyn - MgSo4 IV - due to episode of hypoglycemia- off Levemir - accucheck with coverage - DVT proph
[2018-04-12] MEDS ORDERED: Multivitamin (MVI) 10 ML, Trace Elements-Cr/Cu/Mn/Zn 3 ML in Amino/Dex E 4.25/10 1000 M... IV ONE (14:30)
--- NOTE | 2018-04-12 16:41 | CP.PCM.PN ---
Subjective - Date & Time of Evaluation Date of Evaluation: 04/12/18 Time of Evaluation: 16:41 - Subjective Subjective: Podiatry progress note - Dr. Pham 62 y/o male seen and evaluated at bedside. Resting comfortably. NG tube has been removed at this time. Patient reports passing bowel movements. Reports mild pain to left foot that has improved since admission. Objective - Vital Signs/Intake and Output Vital Signs (last 24 hours): Temp Pulse Resp BP Pulse Ox 97.4 F L 76 20 124/74 99 04/12/18 16:26 04/12/18 16:26 04/12/18 16:26 04/12/18 16:26 04/12/18 16:26 Intake and Output: 04/12/18 04/12/18 06:59 18:59 Output Total 250 Balance -250 - Medications Medications: Current Medications Acetaminophen (Tylenol 325mg/10.15ml Ud) 325 mg PO Q6 PRN PRN Reason: Pain, Mild (1-3) Albuterol/Ipratropium (Duoneb 3 Mg/0.5 Mg (3 Ml) Ud) 3 ml INH RQ4 PRN PRN Reason: Shortness of Breath Atorvastatin Calcium (Lipitor) 40 mg PO DAILY [facility] Last Admin: 04/12/18 08:45 Dose: 40 mg Carvedilol (Coreg) 25 mg PO Q12 [facility] Last Admin: 04/12/18 08:45 Dose: 25 mg Cilostazol (Pletal) 100 mg PO BID [facility] Clotrimazole (Mycelex Sandor) 10 mg MT 5XD [facility] Last Admin: 04/12/18 16:18 Dose: Not Given Dextrose (Dextrose 50% Inj) 0 ml IV STAT PRN; Protocol PRN Reason: Hypoglycemia Protocol Last Admin: 04/12/18 10:15 Dose: 50 ml Dextrose (Glutose 15) 0 gm PO ONCE PRN; Protocol PRN Reason: Hypoglycemia Protocol Enoxaparin Sodium (Lovenox) 40 mg SC DAILY [facility]; Protocol Last Admin: 04/12/18 08:44 Dose: 40 mg Gabapentin (Neurontin) 300 mg PO HS [facility] Last Admin: 04/11/18 21:30 Dose: 300 mg Glucagon (Glucagen Diagnostic Kit) 0 mg IM STAT PRN; Protocol PRN Reason: Hypoglycemia Protocol Hydromorphone HCl (Dilaudid) 0.5 mg IVP Q4H PRN PRN Reason: Pain, severe (8-10) Last Admin: 04/12/18 08:20 Dose: 0.5 mg Piperacillin Sod/Tazobactam (Sod 3.375 gm/ Sodium Chloride) 100 mls @ 100 mls/hr IVPB Q6 [facility]; Protocol Last Admin: 04/12/18 16:22 Dose: 100 mls/hr Insulin Human Regular 8 units/Amino Acids/Electrolytes/Dextrose 1,000.08 mls @ 55 mls/hr IV .[id number] ONE Stop: 04/13/18 00:10 Last Admin: 04/12/18 05:47 Dose: 55 mls/hr Dextrose/Sodium Chloride (Dextrose 5%/0.9% Ns 1000 Ml) 1,000 mls @ 50 mls/hr IV .Q20H [facility] Stop: 04/13/18 05:28 Last Admin: 04/12/18 05:46 Dose: 50 mls/hr Multivitamins/Vitamin C 10 ml/Chromium/Copper/Manganese/Zinc 3 ml/ Amino Acids/Electrolytes/Dextrose 1,013 mls @ 40 mls/hr IV .Q24H ONE Stop: 04/13/18 14:29 Last Admin: 04/12/18 15:13 Dose: 40 mls/hr Insulin Human Lispro (Humalog) 0 units SC Q6H [facility]; Protocol Last Admin: 04/12/18 13:01 Dose: Not Given Lidocaine HCl (Lidocaine 2% Viscous) 15 ml PO Q4 PRN PRN Reason: Sore Throat Last Admin: 04/07/18 18:25 Dose: 15 ml Ondansetron HCl (Zofran Inj) 4 mg IVP Q6 PRN PRN Reason: Nausea/Vomiting Last Admin: 04/03/18 00:06 Dose: 4 mg Pantoprazole Sodium (Protonix Inj) 40 mg IVP DAILY [facility] Last Admin: 04/12/18 08:45 Dose: 40 mg Phenol/Menthol (Phenaseptic 1.4% Throat [place]) 1 spry MT Q2 PRN PRN Reason: Nausea/Vomiting Sodium Hypochlorite (Dakins Solution 0.25%) 0 ml TOP DAILY [facility] Last Admin: 04/12/18 09:23 Dose: 1 u Ticagrelor (Brilinta) 90 mg PO BID [facility] - Labs Labs: 04/12/18 06:50 04/12/18 06:50 PT 13.7 Seconds (9.8-13.1) H 04/01/18 21:53 INR 1.2 04/01/18 21:53 APTT 32.8 Seconds (25.6-37.1) 04/01/18 21:53 - Constitutional Appears: Well, Non-toxic, No Acute Distress - Head Exam Head Exam: ATRAUMATIC, NORMOCEPHALIC - Extremities Exam Additional comments: LLE focused exam: Vascular: DP non-palpable PT nonpalpable, TG warm to cool, no evidence of edema Ortho: Right AKA, pain to the left ulcer site Neuro: gross sensation intact, protective sensation diminished Derm: arterial non-healing ulcer noted to the left first ray with 30% necrotic and 70% granular base, malodor noted, mild active drainage, no fluctuance, no erythema, no tunneling or tracking, no probe to bone - Neurological Exam Neurological Exam: Alert, Awake, Oriented x3 - Psychiatric Exam Psychiatric exam: Normal Affect, Normal Mood Assessment and Plan - Assessment and Plan (Free Text) Assessment: 62M with left foot nonhealing hallux ulcer Plan: Patient seen and evaluated Discussed in detail with Dr. Pham Chart, labs and vitals reviewed- afebrile, absent leukocytosis Wound cleansed with sterile saline and dressed with dakins and DSD X-ray left foot - irregular navicular, normal post amputation site CT- bulky calcific plaque of the distal common femoral artery extending into the prox SFA and also the profunda. Abnormal course of anterior tibial artery which is otherwise patent Vascular recommendations appreciated now that patient is medically improved Podiatry will continue to change dressing, and await further input from surgery and vascular teams regarding whether any podiatric intervention can be performed
--- NOTE | 2018-04-13 00:05 | PN ---
DATE: 04/12/2018 ENDOCRINOLOGY FOLLOWUP NOTE LOCATION: Room 653. SUBJECTIVE: This is a 62-year-old male with recent uncontrolled type 2 insulin-requiring diabetes with recent exploratory laparotomy for a small-bowel obstruction, and is now being followed closely for metabolic management. He has still ongoing TPN infusion as given, and the glucose values have been quite erratic, ranging from 45 to 99 and 123 mg/dL. His chemistry showed a BUN of 12, sodium 137, potassium 3.7, chloride 100, CO2 of 28, glucose 98, and creatinine 0.7. So at this time, we will discontinue the basal insulin given as Levemir 6 units subcu at bedtime daily as given. We will obtain serial chemistries and supplement accordingly as needed. We will also continue the low-dose correction scale using Humalog insulin as ordered. We will also highly recommend the discontinuation of the regular insulin given in the TPN infusion by the surgical staff as noted. We will follow and advised accordingly. Gabi Scanlon MD
[2018-04-13] MEDS: Piperacillin/Tazobact 3.375 GM in Sodium Chloride 0.9% 100 ML IVPB SCH ×4 (03:26→21:50)
[2018-04-13 06:17] LABS: BASO # 0.1 K/uL (0.0-0.2); BASO % 0.6 % (0.0-2.0); EOS # 0.3 K/uL (0.0-0.7); EOS % 2.4 % (0.0-4.0); HEMOGLOBIN 8.2 g/dL (12.0-18.0); LYMPH # 2.2 K/uL (1.0-4.3); LYMPH % 15.5 % (20.0-40.0); MEAN CELL VOLUME 86.2 fl (80.0-94.0); MEAN CORPUSCULAR HEMOGLOBIN 28.3 pg (27.0-31.0); MEAN CORPUSCULAR HGB CONC 32.8 g/dL (33.0-37.0); MEAN PLATELET VOLUME 10.5 fl (7.2-11.7); MONO # 0.7 K/uL (0.0-0.8); MONO % 5.3 % (0.0-10.0); NEUT # 10.8 K/uL (1.8-7.0); NEUT % 76.2 % (50.0-75.0); RBC 2.91 Mil/uL (4.40-5.90); RED CELL DISTRIBUTION WIDTH 16.5 % (11.5-14.5); WHITE BLOOD COUNT 14.2 K/uL (4.8-10.8)
[2018-04-13] MEDS: Insulin Lispro (humaLOG) 100 Units/ml Inj SC SCH ×3 (06:21→17:54)
[2018-04-13 06:30] LABS: ALB/GLOB RATIO 0.6 (1.0-2.1); ALBUMIN 2.1 g/dL (3.5-5.0); ALT/SGPT 16 U/L (21-72); AST/SGOT 14 U/L (17-59); BLOOD UREA NITROGEN 12 mg/dl (9-20); CALCIUM 7.9 mg/dL (8.4-10.2); GFR NON-AFRICAN AMERICAN > 60
[2018-04-13] MEDS ORDERED: Magnesium Sulfate 2 gm/50 ml 2 GM/50 ML BAG IVPB ONE ×2 (07:01→07:23)
--- NOTE | 2018-04-13 07:09 | CP.PCM.PN ---
Subjective - Date & Time of Evaluation Date of Evaluation: 04/13/18 Time of Evaluation: 07:00 - Subjective Subjective: Surgery progress note for Dr. López Pt seen and examined this AM. No adverse events overnight. Patient states that he had multiple BM's yesterday, denies any nausea, vomiting, and abdominal pain is improving. Objective - Vital Signs/Intake and Output Vital Signs (last 24 hours): Temp Pulse Resp BP Pulse Ox 98.7 F 89 18 133/68 96 04/12/18 23:55 04/12/18 23:55 04/12/18 23:55 04/12/18 23:55 04/12/18 23:55 - Medications Medications: Current Medications Acetaminophen (Tylenol 325mg/10.15ml Ud) 325 mg PO Q6 PRN PRN Reason: Pain, Mild (1-3) Albuterol/Ipratropium (Duoneb 3 Mg/0.5 Mg (3 Ml) Ud) 3 ml INH RQ4 PRN PRN Reason: Shortness of Breath Atorvastatin Calcium (Lipitor) 40 mg PO DAILY [facility] [place] Last Admin: 04/12/18 08:45 Dose: 40 mg Carvedilol (Coreg) 25 mg PO Q12 [facility] Last Admin: 04/12/18 21:21 Dose: 25 mg Cilostazol (Pletal) 100 mg PO BID [facility] [place] Clotrimazole (Mycelex Sandor) 10 mg MT 5XD [facility] Last Admin: 04/13/18 05:40 Dose: Not Given Dextrose (Dextrose 50% Inj) 0 ml IV STAT PRN; Protocol PRN Reason: Hypoglycemia Protocol Last Admin: 04/12/18 10:15 Dose: 50 ml Dextrose (Glutose 15) 0 gm PO ONCE PRN; Protocol PRN Reason: Hypoglycemia Protocol Enoxaparin Sodium (Lovenox) 40 mg SC DAILY [facility] [place]; Protocol Last Admin: 04/12/18 08:44 Dose: 40 mg Gabapentin (Neurontin) 300 mg PO HS [facility] Last Admin: 04/12/18 21:20 Dose: 300 mg Glucagon (Glucagen Diagnostic Kit) 0 mg IM STAT PRN; Protocol PRN Reason: Hypoglycemia Protocol Hydromorphone HCl (Dilaudid) 0.5 mg IVP Q4H PRN PRN Reason: Pain, severe (8-10) Last Admin: 02/25/19 22:42 Dose: 0.5 mg Piperacillin Sod/Tazobactam (Sod 3.375 gm/ Sodium Chloride) 100 mls @ 100 mls/hr IVPB Q6 [facility] [place]; Protocol Last Admin: 04/13/18 03:26 Dose: 100 mls/hr Multivitamins/Vitamin C 10 ml/Chromium/Copper/Manganese/Zinc 3 ml/ Amino Acid s/Electrolytes/Dextrose 1,013 mls @ 40 mls/hr IV .Q24H ONE Stop: 04/13/18 14:29 Last Admin: 04/12/18 15:13 Dose: 40 mls/hr Magnesium Sulfate 2 gm/ Sodium (Chloride) 104 mls @ 104 mls/hr IVPB ONCE [facility] Stop: 04/13/18 08:00 Insulin Human Lispro (Humalog) 0 units SC Q6H [facility] [place]; Protocol Last Admin: 04/13/18 06:21 Dose: 2 units Lidocaine HCl (Lidocaine 2% Viscous) 15 ml PO Q4 PRN PRN Reason: Sore Throat Last Admin: 04/07/18 18:25 Dose: 15 ml Ondansetron HCl (Zofran Inj) 4 mg IVP Q6 PRN PRN Reason: Nausea/Vomiting Last Admin: 04/03/18 00:06 Dose: 4 mg Pantoprazole Sodium (Protonix Inj) 40 mg IVP DAILY [facility] Last Admin: 04/12/18 08:45 Dose: 40 mg Phenol/Menthol (Phenaseptic 1.4% Throat [place]) 1 spry MT Q2 PRN PRN Reason: Nausea/Vomiting Sodium Hypochlorite (Dakins Solution 0.25%) 0 ml TOP DAILY [facility] [place] Last Admin: 04/12/18 09:23 Dose: 1 u Ticagrelor (Brilinta) 90 mg PO BID [facility] - Labs Labs: 04/13/18 05:40 04/13/18 05:40 PT 13.7 Seconds (9.8-13.1) H 04/01/18 21:53 INR 1.2 04/01/18 21:53 APTT 32.8 Seconds (25.6-37.1) 04/01/18 21:53 - Constitutional Appears: Well, Non-toxic, No Acute Distress - Head Exam Head Exam: ATRAUMATIC, NORMOCEPHALIC - Eye Exam Eye Exam: Normal appearance. absent: Conjunctival injection, Scleral icterus - ENT Exam ENT Exam: Mucous Membranes Moist, Normal Oropharynx - Respiratory Exam Respiratory Exam: NORMAL BREATHING PATTERN. absent: Accessory Muscle Use, Respiratory Distress - Cardiovascular Exam Cardiovascular Exam: RRR - GI/Abdominal Exam GI & Abdominal Exam: Distended (mild), Soft, Tenderness (mild BL lower quadrant tenderness) Additional comments: midline incision well approximated with babita, no erythema or purulent drainage other incisions healing well, no erythema or drainage - Extremities Exam Extremities Exam: absent: Calf Tenderness, Pedal Edema, Tenderness Additional comments: right AKA, left foot dressing clean, dry, intact - Neurological Exam Neurological Exam: Alert, Awake, Oriented x3 - Psychiatric Exam Psychiatric exam: Normal Affect, Normal Mood - Skin Skin Exam: Dry, Normal Color, Warm Assessment and Plan (1) SBO (small bowel obstruction) Assessment & Plan: POD# 9 S/P laparoscopic converted to open lysis of adhesions and resection of perforated ileum with primary resection -Advance to CLD today -Encourage incentive spirometer and PT -Continue to monitor bowel function -PRN pain medication -PRN nausea medication Status: Resolved (2) Postoperative ileus Assessment & Plan: Patient has begun to pass BM's and flatus Will start on CLD this AM. 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 Scanlon's recommendations for glucose control Status: Acute (10) Hypertension Assessment & Plan: Continue current medication regimen Status: Chronic (11) S/P AKA (above knee amputation) unilateral Assessment & Plan: Continue to encourage PT participation Status: Chronic (12) Pancreatic mass Status: Acute (13) Diabetes mellitus type 2 in nonobese Assessment & Plan: Continue to follow up Dr. Scanlon's recommendations Status: Chronic (14) Lung mass Status: Chronic (15) PVD (peripheral vascular disease) Status: Chronic - Assessment and Plan (Free Text) Plan: Discussed with Dr. López, Taylor Mitchell, PGY2
[2018-04-13] MEDS ORDERED: HYDROmorphone 1 mg/ml ISec IVP PRN (08:15)
[2018-04-13] MEDS ORDERED: HYDROmorphone 0.5 mg/0.5 ml ISec ONE (08:47)
[2018-04-13] MEDS: Enoxaparin 40 mg Syringe SC SCH (08:52)
[2018-04-13] MEDS: Dakin's Topical 0.25%-Half Strength (480 ml) TOP SCH ×2 (09:00→10:00)
[2018-04-13] MEDS: oxyCODONE 5 mg Immediate Release Tab PO PRN (09:05)
--- NOTE | 2018-04-13 09:42 | PQF ---
PROVIDER RESPONSE TEXT: Post-operative ileus was a complication of surgery REVIEWER QUERY TEXT: Postoperative Relationship Clarification Please clarify the term ?post operative? ileus: Such as: -- Condition is a complication of surgery -- Condition occurred in the post operative period, cause documented : please specify the etiology of the ileus -- Condition occurred in the post operative period, cause clinically unable to be determined -- Condition is incidental to surgery -- Other, please specify Documentation indicators that raised basis for question: --- Query created by: Charlene Hidalgo on 04/12/2018 9:11 AM Electronically signed by: Taylor Mitchell 04/13/2018 9:40 AM Patient's postoperative ileus is multifactorial and not directly related to the operation. Factors contributing to the postoperative ileus are anesthesia, opioids, diabetic neuropathy, malnutrition, and inability to ambulate due to left lower extremity open wound and severe peripheral vascular disease and right BKA. DK
--- NOTE | 2018-04-13 11:33 | CP.PCM.PN ---
Subjective - Date & Time of Evaluation Date of Evaluation: 04/13/18 Time of Evaluation: 08:00 - Subjective Subjective: Patient seen and examined bedside reports feeling better today sarted in liquid diet , passing gasses,4 small BM yesterday. reports minimal abd pain. Hemodynamically stable. afebrile, using incentive spirometry. Objective - Vital Signs/Intake and Output Vital Signs (last 24 hours): Temp Pulse Resp BP Pulse Ox 97.5 F L 88 20 101/61 98 04/13/18 07:55 04/13/18 08:53 04/13/18 07:55 04/13/18 08:53 04/13/18 07:55 - Medications Medications: Current Medications Acetaminophen (Tylenol 325mg/10.15ml Ud) 325 mg PO Q6 PRN PRN Reason: Pain, Mild (1-3) Acetaminophen (Tylenol 325mg Tab) 650 mg PO Q6 PRN PRN Reason: Pain, severe (8-10) Albuterol/Ipratropium (Duoneb 3 Mg/0.5 Mg (3 Ml) Ud) 3 ml INH RQ4 PRN PRN Reason: Shortness of Breath Atorvastatin Calcium (Lipitor) 40 mg PO DAILY [facility] Last Admin: 04/13/18 08:54 Dose: 40 mg Carvedilol (Coreg) 25 mg PO Q12 [facility] Last Admin: 04/13/18 08:53 Dose: 25 mg Cilostazol (Pletal) 100 mg PO BID [facility] Clotrimazole (Mycelex Sandor) 10 mg MT 5XD [facility] Last Admin: 04/13/18 08:52 Dose: 10 mg Dextrose (Dextrose 50% Inj) 0 ml IV STAT PRN; Protocol PRN Reason: Hypoglycemia Protocol Last Admin: 04/12/18 10:15 Dose: 50 ml Dextrose (Glutose 15) 0 gm PO ONCE PRN; Protocol PRN Reason: Hypoglycemia Protocol Enoxaparin Sodium (Lovenox) 40 mg SC DAILY [facility]; Protocol Last Admin: 04/13/18 08:52 Dose: 40 mg Fat Emulsion Intravenous (Intralipid 20%) 250 ml IV ONCE ONE Stop: 04/13/18 15:01 Gabapentin (Neurontin) 300 mg PO HS [facility] Last Admin: 04/12/18 21:20 Dose: 300 mg Glucagon (Glucagen Diagnostic Kit) 0 mg IM STAT PRN; Protocol PRN Reason: Hypoglycemia Protocol Hydromorphone HCl (Dilaudid) 0.5 mg IVP Q4H PRN PRN Reason: Pain, severe (8-10) Piperacillin Sod/Tazobactam (Sod 3.375 gm/ Sodium Chloride) 100 mls @ 100 mls/hr IVPB Q6 [facility]; Protocol Last Admin: 04/13/18 09:07 Dose: 100 mls/hr Multivitamins/Vitamin C 10 ml/Chromium/Copper/Manganese/Zinc 3 ml/ Amino Acids/Electrolytes/Dextrose 1,013 mls @ 40 mls/hr IV .Q24H ONE Stop: 04/13/18 14:29 Last Admin: 04/12/18 15:13 Dose: 40 mls/hr Multivitamins/Vitamin C 10 ml/Chromium/Copper/Manganese/Zinc 3 ml/ Amino Acids/Electrolytes/Dextrose 1,013 mls @ 20 mls/hr IV .Q24H ONE Stop: 04/14/18 14:59 Insulin Human Lispro (Humalog) 0 units SC Q6H [facility]; Protocol Last Admin: 04/13/18 06:21 Dose: 2 units Lidocaine HCl (Lidocaine 2% Viscous) 15 ml PO Q4 PRN PRN Reason: Sore Throat Last Admin: 04/07/18 18:25 Dose: 15 ml Ondansetron HCl (Zofran Inj) 4 mg IVP Q6 PRN PRN Reason: Nausea/Vomiting Last Admin: 04/03/18 00:06 Dose: 4 mg Oxycodone HCl (Oxycodone Immediate Release Tab) 5 mg PO Q6 PRN PRN Reason: Pain, moderate (4-7) Last Admin: 04/13/18 09:05 Dose: 5 mg Pantoprazole Sodium (Protonix Inj) 40 mg IVP DAILY [facility] Last Admin: 04/13/18 08:54 Dose: 40 mg Phenol/Menthol (Phenaseptic 1.4% Throat [place]) 1 spry MT Q2 PRN PRN Reason: Nausea/Vomiting Sodium Hypochlorite (Dakins Solution 0.25%) 0 ml TOP DAILY [facility] Last Admin: 04/12/18 09:23 Dose: 1 u Ticagrelor (Brilinta) 90 mg PO BID [facility] - Labs Labs: 04/13/18 05:40 04/13/18 05:40 PT 13.7 Seconds (9.8-13.1) H 04/01/18 21:53 INR 1.2 04/01/18 21:53 APTT 32.8 Seconds (25.6-37.1) 04/01/18 21:53 - Constitutional Appears: No Acute Distress - Respiratory Exam Respiratory Exam: Clear to Ausculation Bilateral - Cardiovascular Exam Cardiovascular Exam: REGULAR RHYTHM, +S1, +S2 - GI/Abdominal Exam GI & Abdominal Exam: Soft, Normal Bowel Sounds. absent: Tenderness Additional comments: mid-vertical abdominal wound with babita, skin clean, dry and intact - Extremities Exam Additional comments: Right AKA. L first toe amputated. Left foot in clean and dry dressing. - Neurological Exam Neurological Exam: Alert, Awake - Psychiatric Exam Psychiatric exam: Normal Affect, Normal Mood Assessment and Plan - Assessment and Plan (Free Text) Plan: 62 yo with a PMHx of HTN, peripheral vascular disease, uncontrolled diabetes mellitus (not in insulin as pt not agreeable), right AKA, cholecystectomy?, unknown abdominal procedure/surgery?, admitted due to partial SBO. --S/P "exploratory laparoscopy with extensive lysis of adhesion, conversion to laparotomy with resection of small bowel perforation with primary anastomosis." on 04/04/18. kaela start liquid diet today,c/w with PPN, has had episode of hypoglycemia corrected. managemnt as per surgery, podiatry and Endo. PLAN: 1)Small Bowel Obstruction, POD #7. --Afebrile, VSS --General Surgery as primary team, Dr. López. --will start liquid diet today as per surgery and if tolerated decrease TPN. --On IV Zosyn, Zofran PRN, Pantoprazole IVP daily. --Pain control w/ morphine and Dilauid PRN --Monitor I and O's 2)Leukocytosis --WBC trending up: 13.6->14,2 -if leukocytosis continues will order CT chest. --Afebrile, VS stable, no SOB. --Continue with IV Zosyn. --Blood Culture negative after 48 hours. 3)Uncontrolled Diabetes Mellitus, type 2, with hyperglycemia. --HbA1c 14 today, on 04/09/18 --Insulin sliding scale. --Endocrinology on board, Dr Scanlon. no insulin on PPN --Hypoglycemia protocol ordered. 4)Chronic normocytic anemia --POD 7. --Hgb decreased to 8.5 5)Cachexia -C/w TPN 6)PVD, L Foot ulcer --Chronic --Podiatry on board, Dr Pham. --PO meds on hold as per NPO, re-initiate PO Brilinta when PO allowed. 7)Hypertension --Chronic, BP wnl today --Considering IV Vasotec if BP elevates. 8)Anemia --Chronic, --POD 4. --Monitor CBC 9)DVT prophylaxis - Lovenox
[2018-04-13] MEDS ORDERED: Multivitamin (MVI) 10 ML, Chromium/Copper/Manganese/Zinc 3 ML in Amino/Dex E 4.25/10 10... IV ONE (15:00)
--- NOTE | 2018-04-13 18:20 | PN ---
DATE: 04/13/2018 ENDOCRINOLOGY FOLLOWUP NOTE LOCATION: Room 653. SUBJECTIVE: This is a 62-year-old male with recent uncontrolled type 2 diabetes with glycemic fluctuations as noted thereof and is now being followed closely postoperatively following an exploratory laparotomy for small bowel obstruction. His glycemic levels overnight have ranged from 203 to 223 mg/dL. His chemistry showed a BUN of 12, sodium 135, potassium 4, chloride 104, CO2 23, glucose 206 and creatinine 0.7. PLAN: So at this time, we will once again reorder basal insulin given his Levemir at 6 units subcu at bedtime daily despite tonight as ordered. We will continue the low dose glycemic scale using Humalog insulin as given. We will obtain serial chemistries and supplement accordingly as needed. We will follow. Gabi Scanlon MD
[2018-04-13] MEDS ORDERED: Insulin Detemir 100 Units/ml Inj SC SCH (22:00)
[2018-04-13] MEDS: HYDROmorphone 0.5 mg/0.5 ml ISec IVP PRN (22:55)
[2018-04-14] MEDS: Piperacillin/Tazobact 3.375 GM in Sodium Chloride 0.9% 100 ML IVPB SCH ×4 (03:24→21:09)
[2018-04-14] MEDS: HYDROmorphone 0.5 mg/0.5 ml ISec IVP PRN ×2 (03:29→09:33)
[2018-04-14] MEDS ORDERED: Sodium Chloride 0.9% 1,000 ML IV SCH (06:15)
[2018-04-14 06:28] LABS: HEMOGLOBIN 10.3 g/dL (12.0-18.0); MEAN CELL VOLUME 85.7 fl (80.0-94.0); MEAN CORPUSCULAR HGB CONC 32.7 g/dL (33.0-37.0); RBC 3.67 Mil/uL (4.40-5.90); RED CELL DISTRIBUTION WIDTH 16.5 % (11.5-14.5); WHITE BLOOD COUNT 19.7 K/uL (4.8-10.8)
[2018-04-14 07:23] LABS: ALB/GLOB RATIO 0.8 (1.0-2.1); ALBUMIN 2.6 g/dL (3.5-5.0); ALT/SGPT 16 U/L (21-72); AST/SGOT 21 U/L (17-59); BLOOD UREA NITROGEN 9 mg/dl (9-20); CALCIUM 8.2 mg/dL (8.4-10.2); GFR NON-AFRICAN AMERICAN > 60
[2018-04-14] MEDS: Insulin Lispro (humaLOG) 100 Units/ml Inj SC SCH ×4 (07:43→18:10)
[2018-04-14] MEDS ORDERED: Magnesium Sulfate 2 gm/50 ml 2 GM/50 ML BAG IVPB ONE (08:17)
[2018-04-14] MEDS: Dakin's Topical 0.25%-Half Strength (480 ml) TOP SCH (09:09)
[2018-04-14] MEDS: Enoxaparin 40 mg Syringe SC SCH (09:14)
[2018-04-14] MEDS: Sodium Chloride 0.45% 1,000 ML IV SCH (09:25)
[2018-04-14] MEDS: Potassium Chloride 20 mEq 100 ML IVPB SCH ×4 (10:47→16:29)
[2018-04-14] MEDS: Dextrose 50% SYRINGE Inj (50 ml) IV PRN ×2 (11:58→17:49)
--- NOTE | 2018-04-14 12:07 | CP.PCM.PN ---
Subjective - Date & Time of Evaluation Date of Evaluation: 04/14/18 Time of Evaluation: 10:00 - Subjective Subjective: 62 y/o M was seen and examined by bedside. Pt awake and alert, reports abdominal tenderness now. Pt explains he had abdominal pain yesterday after drinking liquids. Pt was placed NPO again since last night. Pt reports passing gas, 2 BM yesterday and urinating freely. Pt denies cough, chest pain, SOB, nausea or vomiting. Objective - Vital Signs/Intake and Output Vital Signs (last 24 hours): Temp Pulse Resp BP Pulse Ox 979.8 F H 101 H 20 155/85 H 99 04/14/18 08:02 04/14/18 09:29 04/14/18 08:02 04/14/18 09:29 04/14/18 08:02 - Medications Medications: Current Medications Acetaminophen (Tylenol 325mg/10.15ml Ud) 325 mg PO Q6 PRN PRN Reason: Pain, Mild (1-3) Acetaminophen (Tylenol 325mg Tab) 650 mg PO Q6 PRN PRN Reason: Pain, severe (8-10) Albuterol/Ipratropium (Duoneb 3 Mg/0.5 Mg (3 Ml) Ud) 3 ml INH RQ4 PRN PRN Reason: Shortness of Breath Atorvastatin Calcium (Lipitor) 40 mg PO DAILY [facility] Last Admin: 04/14/18 09:30 Dose: Not Given Carvedilol (Coreg) 25 mg PO Q12 [facility] Last Admin: 04/14/18 09:29 Dose: 25 mg Cilostazol (Pletal) 100 mg PO BID [facility] Clotrimazole (Mycelex Sandor) 10 mg MT 5XD [facility] Last Admin: 04/14/18 09:30 Dose: Not Given Dextrose (Dextrose 50% Inj) 0 ml IV STAT PRN; Protocol PRN Reason: Hypoglycemia Protocol Last Admin: 04/14/18 11:58 Dose: 50 ml Dextrose (Glutose 15) 0 gm PO ONCE PRN; Protocol PRN Reason: Hypoglycemia Protocol Enoxaparin Sodium (Lovenox) 40 mg SC DAILY [facility]; Protocol Last Admin: 04/14/18 09:14 Dose: 40 mg Gabapentin (Neurontin) 300 mg PO HS [facility] Last Admin: 04/13/18 22:09 Dose: Not Given Glucagon (Glucagen Diagnostic Kit) 0 mg IM STAT PRN; Protocol PRN Reason: Hypoglycemia Protocol Hydromorphone HCl (Dilaudid) 0.5 mg IVP Q4H PRN PRN Reason: Pain, severe (8-10) Last Admin: 04/14/18 09:33 Dose: 0.5 mg Piperacillin Sod/Tazobactam (Sod 3.375 gm/ Sodium Chloride) 100 mls @ 100 mls/hr IVPB Q6 [facility]; Protocol Last Admin: 04/14/18 09:09 Dose: 100 mls/hr Multivitamins/Vitamin C 10 ml/Chromium/Copper/Manganese/Zinc 3 ml/ Amino Acids/Electrolytes/Dextrose 1,013 mls @ 20 mls/hr IV .Q24H ONE Stop: 04/14/18 14:59 Last Admin: 04/13/18 16:06 Dose: 20 mls/hr Potassium Chloride (Potassium Chloride 20 Meq/100 Ml) 100 mls @ 50 mls/hr IVPB Q2 [facility] Stop: 04/14/18 13:59 Last Admin: 04/14/18 11:43 Dose: 50 mls/hr Sodium Chloride (Sodium Chloride 0.45%) 1,000 mls @ 100 mls/hr IV .Q10H [facility] Stop: 04/15/18 08:19 Last Admin: 04/14/18 09:25 Dose: 100 mls/hr Insulin Detemir (Levemir) 6 units SC HS [facility] Last Admin: 04/13/18 23:38 Dose: 6 u Insulin Human Lispro (Humalog) 0 units SC Q6H [facility]; Protocol Last Admin: 04/14/18 11:45 Dose: Not Given Lidocaine HCl (Lidocaine 2% Viscous) 15 ml PO Q4 PRN PRN Reason: Sore Throat Last Admin: 04/07/18 18:25 Dose: 15 ml Ondansetron HCl (Zofran Inj) 4 mg IVP Q6 PRN PRN Reason: Nausea/Vomiting Last Admin: 04/14/18 09:33 Dose: 4 mg Oxycodone HCl (Oxycodone Immediate Release Tab) 5 mg PO Q6 PRN PRN Reason: Pain, moderate (4-7) Last Admin: 04/13/18 09:05 Dose: 5 mg Pantoprazole Sodium (Protonix Inj) 40 mg IVP DAILY [facility] Last Admin: 04/14/18 09:20 Dose: 40 mg Phenol/Menthol (Phenaseptic 1.4% Throat [place]) 1 spry MT Q2 PRN PRN Reason: Nausea/Vomiting Sodium Hypochlorite (Dakins Solution 0.25%) 0 ml TOP DAILY [facility] Last Admin: 04/14/18 09:09 Dose: 1 u Ticagrelor (Brilinta) 90 mg PO BID [facility] - Labs Labs: 04/14/18 05:30 04/14/18 05:30 PT 13.7 Seconds (9.8-13.1) H 04/01/18 21:53 INR 1.2 04/01/18 21:53 APTT 32.8 Seconds (25.6-37.1) 04/01/18 21:53 - Constitutional Appears: No Acute Distress, Cachectic, Chronically Ill - Head Exam Head Exam: ATRAUMATIC, NORMAL INSPECTION - Eye Exam Eye Exam: EOMI - ENT Exam ENT Exam: Mucous Membranes Dry - Neck Exam Neck Exam: Full ROM. absent: Meningismus - Respiratory Exam Respiratory Exam: NORMAL BREATHING PATTERN. absent: Rhonchi, Wheezes, R espiratory Distress - Cardiovascular Exam Cardiovascular Exam: +S1, +S2 - GI/Abdominal Exam GI & Abdominal Exam: Distended, Soft, Tenderness (diffuse, more prominent on lower quadrants. ). absent: Guarding, Rigid - Extremities Exam Extremities Exam: Calf Tenderness Additional comments: Right AKA. L first toe amputated. Left foot in clean and dry dressing. - Skin Additional comments: mid-vertical abdominal dressing in place clean, dry and intact Assessment and Plan - Assessment and Plan (Free Text) Assessment: 62 yo with a PMHx of HTN, peripheral vascular disease, uncontrolled diabetes mellitus (not in insulin as pt not agreeable), right AKA, cholecystectomy?, unknown abdominal procedure/surgery?, admitted due to partial SBO. --S/P "exploratory laparoscopy with extensive lysis of adhesion, conversion to laparotomy with resection of small bowel perforation with primary anastomosis." on 04/04/18. PLAN: >Small Bowel Obstruction, POD #10. --Afebrile, VSS --General Surgery as primary team, Dr. López. --NPO, IV 1/2NS at 100mL/hr --On IV Zosyn, Zofran PRN, Pantoprazole IVP daily. --Pain control w/ Dilauid PRN --F/U symptoms --Monitor I and O's --On TPN. >Leukocytosis --WBC 19.7-high. --Afebrile, VS stable, no SOB. --Continue with IV Zosyn. --Blood Cx no growth after 4 days. --Pro-calcitonin ordered, to evaluate infection presence. --Atelectasis can cause fever. >Uncontrolled Diabetes Mellitus, type 2, with hyperglycemia. --Insulin sliding scale. Lispro Q6H. --Endocrinology on board, Dr Scanlon --Hypoglycemia protocol ordered. >Chronic normocytic anemia --POD 10. --Hgb 10.3 today, abrupt increased from yesterday. Likely hemoconcentration. --Will increase IV fluids rate. IV 1/2NS at 100mL/hr >Cachexia -On TPN >PVD, L Foot ulcer --Chronic --Podiatry on board, Dr Pham. --PO meds on hold as per NPO, re-initiate PO Brilinta when PO allowed. >Electrolyte derangement --Hypokalemia and Hypomagnesimia today. --Ordered IV KCL 20mEq x2 and IV MgSO4 2gr x1. --Monitor electrolytes and replace >Hypertension --Chronic, BP wnl today --Considering IV Vasotec if BP elevates. >DVT prophylaxis - Lovenox
--- NOTE | 2018-04-14 13:05 | CP.PCM.PN ---
Subjective - Date & Time of Evaluation Date of Evaluation: 04/14/18 Time of Evaluation: 12:54 - Subjective Subjective: Surgery Progress note- Dr. López Patient seen and examined at bedside. Patient was started on clears yesterday. Patient states he was excited to drink and thinks he had too much to drink in a short amount of time. Patient started developing abdominal pain overnight. This AM pain has improved however still present. Continues to pass flatus, and small bowel movement overnight. Objective - Vital Signs/Intake and Output Vital Signs (last 24 hours): Temp Pulse Resp BP Pulse Ox 979.8 F H 101 H 20 155/85 H 99 04/14/18 08:02 04/14/18 09:29 04/14/18 08:02 04/14/18 09:29 04/14/18 08:02 - Medications Medications: Current Medications Acetaminophen (Tylenol 325mg/10.15ml Ud) 325 mg PO Q6 PRN PRN Reason: Pain, Mild (1-3) Acetaminophen (Tylenol 325mg Tab) 650 mg PO Q6 PRN PRN Reason: Pain, severe (8-10) Albuterol/Ipratropium (Duoneb 3 Mg/0.5 Mg (3 Ml) Ud) 3 ml INH RQ4 PRN PRN Reason: Shortness of Breath Atorvastatin Calcium (Lipitor) 40 mg PO DAILY [facility] Last Admin: 04/14/18 09:30 Dose: Not Given Carvedilol (Coreg) 25 mg PO Q12 [facility] Last Admin: 04/14/18 09:29 Dose: 25 mg Cilostazol (Pletal) 100 mg PO BID [facility] Clotrimazole (Mycelex Sandor) 10 mg MT 5XD [facility] Last Admin: 04/14/18 09:30 Dose: Not Given Dextrose (Dextrose 50% Inj) 0 ml IV STAT PRN; Protocol PRN Reason: Hypoglycemia Protocol Last Admin: 04/14/18 11:58 Dose: 50 ml Dextrose (Glutose 15) 0 gm PO ONCE PRN; Protocol PRN Reason: Hypoglycemia Protocol Enoxaparin Sodium (Lovenox) 40 mg SC DAILY [facility]; Protocol Last Admin: 04/14/18 09:14 Dose: 40 mg Gabapentin (Neurontin) 300 mg PO HS [facility] Last Admin: 04/13/18 22:09 Dose: Not Given Glucagon (Glucagen Diagnostic Kit) 0 mg IM STAT PRN; Protocol PRN Reason: Hypoglycemia Protocol Hydromorphone HCl (Dilaudid) 0.5 mg IVP Q4H PRN PRN Reason: Pain, severe (8-10) Last Admin: 04/14/18 09:33 Dose: 0.5 mg Piperacillin Sod/Tazobactam (Sod 3.375 gm/ Sodium Chloride) 100 mls @ 100 mls/hr IVPB Q6 [facility]; Protocol Last Admin: 04/14/18 09:09 Dose: 100 mls/hr Multivitamins/Vitamin C 10 ml/Chromium/Copper/Manganese/Zinc 3 ml/ Amino Acids/Electrolytes/Dextrose 1,013 mls @ 20 mls/hr IV .Q24H ONE Stop: 04/14/18 14:59 Last Admin: 04/13/18 16:06 Dose: 20 mls/hr Potassium Chloride (Potassium Chloride 20 Meq/100 Ml) 100 mls @ 50 mls/hr IVPB Q2 [facility] Stop: 04/14/18 13:59 Last Admin: 04/14/18 11:43 Dose: 50 mls/hr Sodium Chloride (Sodium Chloride 0.45%) 1,000 mls @ 100 mls/hr IV .Q10H [facility] Stop: 04/15/18 08:19 Last Admin: 04/14/18 09:25 Dose: 100 mls/hr Insulin Detemir (Levemir) 6 units SC HS [facility] Last Admin: 04/13/18 23:38 Dose: 6 u Insulin Human Lispro (Humalog) 0 units SC Q6H [facility]; Protocol Last Admin: 04/14/18 11:45 Dose: Not Given Lidocaine HCl (Lidocaine 2% Viscous) 15 ml PO Q4 PRN PRN Reason: Sore Throat Last Admin: 04/07/18 18:25 Dose: 15 ml Ondansetron HCl (Zofran Inj) 4 mg IVP Q6 PRN PRN Reason: Nausea/Vomiting Last Admin: 04/14/18 09:33 Dose: 4 mg Oxycodone HCl (Oxycodone Immediate Release Tab) 5 mg PO Q6 PRN PRN Reason: Pain, moderate (4-7) Last Admin: 04/13/18 09:05 Dose: 5 mg Pantoprazole Sodium (Protonix Inj) 40 mg IVP DAILY [facility] Last Admin: 04/14/18 09:20 Dose: 40 mg Phenol/Menthol (Phenaseptic 1.4% Throat [place]) 1 spry MT Q2 PRN PRN Reason: Nausea/Vomiting Sodium Hypochlorite (Dakins Solution 0.25%) 0 ml TOP DAILY [facility] Last Admin: 04/14/18 09:09 Dose: 1 u Ticagrelor (Brilinta) 90 mg PO BID [facility] - Labs Labs: 04/14/18 05:30 04/14/18 05:30 PT 13.7 Seconds (9.8-13.1) H 04/01/18 21:53 INR 1.2 04/01/18 21:53 APTT 32.8 Seconds (25.6-37.1) 04/01/18 21:53 - Constitutional Appears: Non-toxic, No Acute Distress, Chronically Ill - Head Exam Head Exam: ATRAUMATIC - Eye Exam Eye Exam: EOMI - ENT Exam ENT Exam: Mucous Membranes Moist - Respiratory Exam Respiratory Exam: NORMAL BREATHING PATTERN. absent: Accessory Muscle Use, Respiratory Distress - Cardiovascular Exam Cardiovascular Exam: REGULAR RHYTHM. absent: Bradycardia, Tachycardia - GI/Abdominal Exam GI & Abdominal Exam: Soft, Tenderness (midline tenderness, improved from yesterday). absent: Distended, Firm, Guarding, Rigid - Neurological Exam Neurological Exam: Alert, Awake, Oriented x3 - Psychiatric Exam Psychiatric exam: Normal Affect - Skin Skin Exam: Intact, Warm Assessment and Plan - Assessment and Plan (Free Text) Assessment: 62M PMHx of HTN, peripheral vascular disease, uncontrolled diabetes mellitus (not on home insulin as pt not agreeable), right AKA, admitted for bowel obstruction; s/p laparotomy lysis of adhesions and resection of ileal perforation with primary anastamosis POD#10. Currently post -op Ileus resolving Plan: Small Bowel Obstruction - ABXray 2 views for progression of contrast - pending results of xray, plan to pull NGT and start on CLD - On TPN - NPO due to increased abdominal pain - Strict I/O - 1:1 fluid replacement losses w/ NS - anti-emetic and pain control PRN - monitor daily electrolytes - [facility] Reglan; NGT output improved- will D/C NGT - CT on 04/10: dilated rectum w/ stool, no abscess or leak - 04/14 upright abdominal film Leukocytosis - restart on Abx; zosyn - CXR 04/10: Lower lobe atalectasis - UA 04/10: negative - CT A/P w/ PO& IV contrast: dilated rectum, dialated smallbowel loops- better than before. anastomotic site intact Post op Ileus; resolved - encourage OOB into chair - aggressive physical therapy - monitor bowel function; + flatus Uncontrolled Diabetes Mellitus, type 2, with hyperglycemia. - c/s Endocrinology; all recs appreciated - sliding scale - insulin sliding scale - HbA1c 15.4 Cough - duonebs PRN; cough improved - Aggressive Incentive Spirometry - chest physiotherapy - OOB and into chair - Physical Therapy - CXR shows atalectasis Hyperkalemia; resolved - adjust TPN orders - f/u CMP in am - replete lyts PRN Hypomagnesimia - replete lytes PRN - daily Labs PVD, L Foot ulcer - Chronic - c/s Podiatry; all recs appreciated - daily dressing changes w/ Dakins - no surgical intervention as patient not medically stable - may plan for debridement once improved clinically Chronic normocytic anemia - Stable - Daily CBC. Cachexia -Evident on physical exam -Pt reports significant weight loss in past 3 months -TPN -will initiate enteral feeds when +bowel function returns Prophylaxis - Lovenox, and Protonix d/w Dr. López Surgical Attending
[2018-04-14] MEDS ORDERED: Magnesium Sulfate 2 gm/50 ml 2 GM/50 ML BAG IV ONE (13:30)
--- NOTE | 2018-04-14 14:08 | RAD ---
Date of service: 04/14/2018 HISTORY: s/p bowel resection COMPARISON: 04/12/2018 portable spine x-ray. Prior abdomen and pelvic CT report 04/10/2018 noted. FINDINGS: BOWEL: Interval chain sutures right lower abdominal quadrant compatible with the previously referenced colo enteric anastomosis surgery. There is gas seen in the small large bowel. There are loops of central bowel with gas present which are probably small bowel loops given some suggestion of valvulae like conniventes here. Cephalad to this are decompressed/nondistended colon loops. There is also moderate stool in the left colon present. This relative the central collection of believed small bowel dilated loops may represent a focal ileus. Continued close follow-up is advised. This time no complete obstruction appreciated. BONES: Lumbar spondylosis. Bilateral hip arthrosis. OTHER FINDINGS: Pneumobilia and right upper quadrant cholecystectomy clips. Midline surgical babita-similar IMPRESSION: Interval surgical changes right lower quadrant compatible with the recent colo enteric anastomotic surgery. The current fairly central gas containing bowel loops are probably small bowel in origin. A focal ileus is 1 consideration. A partial small-bowel obstruction and/or intermittent partial small-bowel obstruction cannot be excluded. Continued close follow-up is advised. Other findings as above.
[2018-04-14] MEDS ORDERED: Multivitamin (MVI) 10 ML, Chromium/Copper/Manganese/Zinc 3 ML in Amino/Dex E 4.25/10 10... IV ONE (16:00)
[2018-04-14] MEDS: Sucralfate 1 gm/10 ml Oral Susp UD PO SCH (16:26)
--- NOTE | 2018-04-14 20:45 | PN ---
DATE: 04/14/2018 ENDOCRINOLOGY FOLLOWUP NOTE LOCATION: Room 653. SUBJECTIVE: This is a 62-year-old male with recent laparotomy for small bowel obstruction and currently advanced to a clear liquid diet, poorly tolerated thereof. His glucose levels have been once again fluctuating as noted overnight, and the glucose levels have ranged from 43 to 76 to 132 mg/dL. LABORATORY DATA: His chemistry showed a BUN of 9, sodium 134, potassium 3.5, chloride 100, CO2 of 25, glucose 168, and creatinine 0.7. ASSESSMENT AND PLAN: So at this time, we will discontinue his basal insulin given as Levemir at 6 units subcutaneously at bedtime daily as given. We will continue the low-dose correction scale, modify to very minimal coverage to obviate hypoglycemia and detailed orders have been given. We will follow and advise accordingly. Gabi Scanlon MD
[2018-04-14 20:46] LABS: HEMOGLOBIN 10.5 g/dL (12.0-18.0); MEAN CELL VOLUME 86.6 fl (80.0-94.0); MEAN CORPUSCULAR HEMOGLOBIN 30.3 pg (27.0-31.0); RBC 3.46 Mil/uL (4.40-5.90); RED CELL DISTRIBUTION WIDTH 16.3 % (11.5-14.5); WHITE BLOOD COUNT 27.9 K/uL (4.8-10.8)
[2018-04-14] MEDS: Potassium Ch 20mEq in D5-1/2NS 1,000 ML IV SCH (22:37)
[2018-04-15] MEDS: Insulin Lispro (humaLOG) 100 Units/ml Inj SC SCH ×4 (00:59→17:08)
[2018-04-15] MEDS: Piperacillin/Tazobact 3.375 GM in Sodium Chloride 0.9% 100 ML IVPB SCH ×4 (03:06→21:42)
[2018-04-15] MEDS: HYDROmorphone 0.5 mg/0.5 ml ISec IVP PRN (04:07)
[2018-04-15] MEDS: Sodium Chloride 0.45% 1,000 ML IV SCH (04:11)
[2018-04-15] MEDS ORDERED: Sodium Chloride 3% for Inhalation 4 ML VIAL.NEB IH PRN (05:40)
[2018-04-15] MEDS: Potassium Ch 20mEq in D5-1/2NS 1,000 ML IV SCH (06:34)
[2018-04-15 07:12] LABS: BASO # 0.1 K/uL (0.0-0.2); BASO % 0.4 % (0.0-2.0); EOS # 0.2 K/uL (0.0-0.7); EOS % 0.8 % (0.0-4.0); HEMOGLOBIN 8.8 g/dL (12.0-18.0); LYMPH # 1.6 K/uL (1.0-4.3); LYMPH % 7.7 % (20.0-40.0); MEAN CELL VOLUME 87.2 fl (80.0-94.0); MEAN CORPUSCULAR HEMOGLOBIN 28.1 pg (27.0-31.0); MEAN CORPUSCULAR HGB CONC 32.3 g/dL (33.0-37.0); MEAN PLATELET VOLUME 10.5 fl (7.2-11.7); MONO # 0.8 K/uL (0.0-0.8); NEUT % 87.1 % (50.0-75.0); NRBC % 0.1 % (0.0-0.0); PLATELET COUNT 409 K/uL (130-400); RBC 3.12 Mil/uL (4.40-5.90); RED CELL DISTRIBUTION WIDTH 16.5 % (11.5-14.5); WHITE BLOOD COUNT 20.6 K/uL (4.8-10.8)
[2018-04-15 07:32] LABS: ALB/GLOB RATIO 0.8 (1.0-2.1); ALBUMIN 2.4 g/dL (3.5-5.0); ALT/SGPT 13 U/L (21-72); AST/SGOT 18 U/L (17-59); BLOOD UREA NITROGEN 10 mg/dl (9-20); CALCIUM 7.7 mg/dL (8.4-10.2); GFR NON-AFRICAN AMERICAN > 60
--- NOTE | 2018-04-15 07:32 | CP.PCM.PN ---
Subjective - Date & Time of Evaluation Date of Evaluation: 04/15/18 Time of Evaluation: 07:31 - Subjective Subjective: Podiatry progress note - Dr. Pham 62 y/o male seen and evaluated at bedside. Resting comfortably. Patient states the abdominal pain from yesterday has significantly decreased. Patient reports passing bowel movement again this morning. Reports mild pain to left foot that has improved since admission. Objective - Vital Signs/Intake and Output Vital Signs (last 24 hours): Temp Pulse Resp BP Pulse Ox 98.4 F 97 H 20 134/71 97 04/14/18 23:40 04/14/18 23:40 04/14/18 23:40 04/14/18 23:40 04/14/18 23:40 - Medications Medications: Current Medications Acetaminophen (Tylenol 325mg/10.15ml Ud) 325 mg PO Q6 PRN PRN Reason: Pain, Mild (1-3) Last Admin: 04/14/18 17:42 Dose: 325 mg Acetaminophen (Tylenol 325mg Tab) 650 mg PO Q6 PRN PRN Reason: Pain, severe (8-10) Albuterol/Ipratropium (Duoneb 3 Mg/0.5 Mg (3 Ml) Ud) 3 ml INH RQ4 PRN PRN Reason: Shortness of Breath Atorvastatin Calcium (Lipitor) 40 mg PO DAILY [facility] Last Admin: 04/14/18 09:30 Dose: Not Given Carvedilol (Coreg) 25 mg PO Q12 [facility] Last Admin: 04/14/18 21:10 Dose: 25 mg Cilostazol (Pletal) 100 mg PO BID [facility] Clotrimazole (Mycelex Sandor) 10 mg MT 5XD [facility] Last Admin: 04/15/18 06:34 Dose: Not Given Dextrose (Dextrose 50% Inj) 0 ml IV STAT PRN; Protocol PRN Reason: Hypoglycemia Protocol Last Admin: 04/14/18 17:49 Dose: 50 ml Dextrose (Glutose 15) 0 gm PO ONCE PRN; Protocol PRN Reason: Hypoglycemia Protocol Enoxaparin Sodium (Lovenox) 40 mg SC DAILY [facility]; Protocol Last Admin: 04/14/18 09:14 Dose: 40 mg Gabapentin (Neurontin) 300 mg PO HS [facility] Last Admin: 04/14/18 21:10 Dose: 300 mg Glucagon (Glucagen Diagnostic Kit) 0 mg IM STAT PRN; Protocol PRN Reason: Hypoglycemia Protocol Hydromorphone HCl (Dilaudid) 0.5 mg IVP Q4H PRN PRN Reason: Pain, severe (8-10) Last Admin: 04/15/18 04:07 Dose: 0.5 mg Piperacillin Sod/Tazobactam (Sod 3.375 gm/ Sodium Chloride) 100 mls @ 100 mls/hr IVPB Q6 [facility]; Protocol Last Admin: 04/15/18 03:06 Dose: 100 mls/hr Sodium Chloride (Sodium Chloride 0.45%) 1,000 mls @ 100 mls/hr IV .Q10H [facility] Stop: 04/15/18 08:19 Last Admin: 04/15/18 04:11 Dose: Not Given Multivitamins/Vitamin C 10 ml/Chromium/Copper/Manganese/Zinc 3 ml/ Amino Acids/Electrolytes/Dextrose 1,013 mls @ 40 mls/hr IV .Q24H ONE Stop: 04/15/18 15:59 Potassium Chloride/Dextrose/Sod Cl (Potassium Chl 20 Meq In D5-1/2ns) 1,000 mls @ 80 mls/hr IV .[id number] [facility] Stop: 04/15/18 17:59 Last Admin: 04/15/18 06:34 Dose: Not Given Insulin Human Lispro (Humalog) 0 units SC Q6H [facility]; Protocol Last Admin: 04/15/18 05:57 Dose: Not Given Lidocaine HCl (Lidocaine 2% Viscous) 15 ml PO Q4 PRN PRN Reason: Sore Throat Last Admin: 04/07/18 18:25 Dose: 15 ml Metoclopramide HCl (Reglan) 10 mg IVP Q6 [facility] Stop: 04/16/18 16:01 Ondansetron HCl (Zofran Inj) 4 mg IVP Q6 PRN PRN Reason: Nausea/Vomiting Last Admin: 04/14/18 09:33 Dose: 4 mg Oxycodone HCl (Oxycodone Immediate Release Tab) 5 mg PO Q6 PRN PRN Reason: Pain, moderate (4-7) Last Admin: 04/13/18 09:05 Dose: 5 mg Pantoprazole Sodium (Protonix Inj) 40 mg IVP DAILY [facility] Last Admin: 04/14/18 09:20 Dose: 40 mg Phenol/Menthol (Phenaseptic 1.4% Throat [place]) 1 spry MT Q2 PRN PRN Reason: Nausea/Vomiting Sodium Hypochlorite (Dakins Solution 0.25%) 0 ml TOP DAILY [facility] Last Admin: 04/14/18 09:09 Dose: 1 u Sucralfate (Carafate Oral Susp) 1 gm PO BID [facility] Last Admin: 04/14/18 16:26 Dose: 1 gm Ticagrelor (Brilinta) 90 mg PO BID [facility] - Labs Labs: 04/15/18 06:20 04/14/18 05:30 PT 13.7 Seconds (9.8-13.1) H 04/01/18 21:53 INR 1.2 04/01/18 21:53 APTT 32.8 Seconds (25.6-37.1) 04/01/18 21:53 - Constitutional Appears: Well, Non-toxic, No Acute Distress - Head Exam Head Exam: ATRAUMATIC, NORMOCEPHALIC - Extremities Exam Additional comments: LLE focused exam: Vascular: DP non-palpable PT non-palpable, TG warm to cool, no evidence of edema Ortho: Right AKA, pain to the left ulcer site Neuro: gross sensation intact, protective sensation diminished Derm: arterial non-healing ulcer noted to the left first ray with 30% necrotic and 70% granular base, no malodor noted, minimal active drainage, no fluctuance, no erythema, no tunneling or tracking, no probe to bone, gangrenous changes noted to the left 2nd digit and the tip of the 3rd digits, dry gangrene, no signs of infection - Neurological Exam Neurological Exam: Alert, Awake, Oriented x3 - Psychiatric Exam Psychiatric exam: Normal Affect, Normal Mood Assessment and Plan - Assessment and Plan (Free Text) Assessment: 62M with left foot nonhealing hallux ulcer Plan: Patient seen and evaluated Discussed in detail with Dr. Pham Chart, labs and vitals reviewed- afebrile, positive leukocytosis at 20.6 this morning Wound cleansed with sterile saline and dressed with dakins and DSD Wound Culture obtained MRI ordered of hte left foot to r/o osteomyelitis X-ray left foot - irregular navicular, normal post amputation site CT- bulky calcific plaque of the distal common femoral artery extending into the prox SFA and also the profunda. Abnormal course of anterior tibial artery which is otherwise patent Podiatry will continue to change dressing, and await further input from surgery and vascular teams regarding whether any podiatric intervention can be performed
[2018-04-15] MEDS ORDERED: Iohexol 240 (50 ml) PO ONE (07:52)
--- NOTE | 2018-04-15 07:59 | CP.PCM.PN ---
Subjective - Date & Time of Evaluation Date of Evaluation: 04/15/18 Time of Evaluation: 07:00 - Subjective Subjective: General surgery progress note for Dr. López Pt seen and examined this AM. No adverse events overnight, no nausea, vomiting. Abdominal pain much improved from yesterday. No fevers or chills. Patient had elevated WBC of 27 yesterday but was afebrile, tolerating CLD, still passing gas with loose stools. Objective - Vital Signs/Intake and Output Vital Signs (last 24 hours): Temp Pulse Resp BP Pulse Ox 98.4 F 97 H 20 134/71 97 04/14/18 23:40 04/14/18 23:40 04/14/18 23:40 04/14/18 23:40 04/14/18 23:40 - Medications Medications: Current Medications Acetaminophen (Tylenol 325mg/10.15ml Ud) 325 mg PO Q6 PRN PRN Reason: Pain, Mild (1-3) Last Admin: 04/14/18 17:42 Dose: 325 mg Acetaminophen (Tylenol 325mg Tab) 650 mg PO Q6 PRN PRN Reason: Pain, severe (8-10) Albuterol/Ipratropium (Duoneb 3 Mg/0.5 Mg (3 Ml) Ud) 3 ml INH RQ4 PRN PRN Reason: Shortness of Breath Atorvastatin Calcium (Lipitor) 40 mg PO DAILY [facility] Last Admin: 04/14/18 09:30 Dose: Not Given Carvedilol (Coreg) 25 mg PO Q12 [facility] Last Admin: 04/14/18 21:10 Dose: 25 mg Cilostazol (Pletal) 100 mg PO BID [facility] Clotrimazole (Mycelex Sandor) 10 mg MT 5XD [facility] Last Admin: 04/15/18 06:34 Dose: Not Given Dextrose (Dextrose 50% Inj) 0 ml IV STAT PRN; Protocol PRN Reason: Hypoglycemia Protocol Last Admin: 04/14/18 17:49 Dose: 50 ml Dextrose (Glutose 15) 0 gm PO ONCE PRN; Protocol PRN Reason: Hypoglycemia Protocol Enoxaparin Sodium (Lovenox) 40 mg SC DAILY [facility]; Protocol Last Admin: 04/14/18 09:14 Dose: 40 mg Gabapentin (Neurontin) 300 mg PO HS [facility] Last Admin: 04/14/18 21:10 Dose: 300 mg Glucagon (Glucagen Diagnostic Kit) 0 mg IM STAT PRN; Protocol PRN Reason: Hypoglycemia Protocol Hydromorphone HCl (Dilaudid) 0.5 mg IVP Q4H PRN PRN Reason: Pain, severe (8-10) Last Admin: 04/15/18 04:07 Dose: 0.5 mg Piperacillin Sod/Tazobactam (Sod 3.375 gm/ Sodium Chloride) 100 mls @ 100 mls/hr IVPB Q6 [facility]; Protocol Last Admin: 04/15/18 03:06 Dose: 100 mls/hr Sodium Chloride (Sodium Chloride 0.45%) 1,000 mls @ 100 mls/hr IV .Q10H [facility] Stop: 04/15/18 08:19 Last Admin: 04/15/18 04:11 Dose: Not Given Multivitamins/Vitamin C 10 ml/Chromium/Copper/Manganese/Zinc 3 ml/ Amino Acids/Electrolytes/Dextrose 1,013 mls @ 40 mls/hr IV .Q24H [facility] Stop: 04/15/18 15:59 Potassium Chloride/Dextrose/Sod Cl (Potassium Chl 20 Meq In D5-1/2ns) 1,000 mls @ 80 mls/hr IV .[id number] [facility] Stop: 04/15/18 17:59 Last Admin: 04/15/18 06:34 Dose: Not Given Insulin Human Lispro (Humalog) 0 units SC Q6H [facility]; Protocol Last Admin: 04/15/18 05:57 Dose: Not Given Iohexol (Omnipaque 240 (50 Ml)) 50 ml PO ONCE [facility] Stop: 04/15/18 07:53 Lidocaine HCl (Lidocaine 2% Viscous) 15 ml PO Q4 PRN PRN Reason: Sore Throat Last Admin: 04/07/18 18:25 Dose: 15 ml Metoclopramide HCl (Reglan) 10 mg IVP Q6 [facility] Stop: 04/16/18 16:01 Ondansetron HCl (Zofran Inj) 4 mg IVP Q6 PRN PRN Reason: Nausea/Vomiting Last Admin: 04/14/18 09:33 Dose: 4 mg Oxycodone HCl (Oxycodone Immediate Release Tab) 5 mg PO Q6 PRN PRN Reason: Pain, moderate (4-7) Last Admin: 04/13/18 09:05 Dose: 5 mg Pantoprazole Sodium (Protonix Inj) 40 mg IVP DAILY [facility] Last Admin: 04/14/18 09:20 Dose: 40 mg Phenol/Menthol (Phenaseptic 1.4% Throat [place]) 1 spry MT Q2 PRN PRN Reason: Nausea/Vomiting Sodium Hypochlorite (Dakins Solution 0.25%) 0 ml TOP DAILY [facility] Last Admin: 04/14/18 09:09 Dose: 1 u Sucralfate (Carafate Oral Susp) 1 gm PO BID [facility] Last Admin: 04/14/18 16:26 Dose: 1 gm Ticagrelor (Brilinta) 90 mg PO BID [facility] - Labs Labs: 04/15/18 06:20 04/15/18 06:20 PT 13.7 Seconds (9.8-13.1) H 04/01/18 21:53 INR 1.2 04/01/18 21:53 APTT 32.8 Seconds (25.6-37.1) 04/01/18 21:53 - Constitutional Appears: Well, Non-toxic, No Acute Distress - Head Exam Head Exam: ATRAUMATIC, NORMOCEPHALIC - Eye Exam Eye Exam: Normal appearance. absent: Conjunctival injection, Scleral icterus - ENT Exam ENT Exam: Mucous Membranes Moist, Normal Oropharynx - Respiratory Exam Respiratory Exam: NORMAL BREATHING PATTERN. absent: Accessory Muscle Use, Respiratory Distress - Cardiovascular Exam Cardiovascular Exam: RRR - GI/Abdominal Exam GI & Abdominal Exam: Soft, Tenderness (mild BL LQ tenderness). absent: Distended, Rebound - Extremities Exam Extremities Exam: absent: Calf Tenderness, Pedal Edema Additional comments: right AKA, left foot with chronic wound at the site of the great toe amputation, no purulent drainage expressed, no surrounding erythema or signs of infection - Neurological Exam Neurological Exam: Alert, Awake, Oriented x3 - Psychiatric Exam Psychiatric exam: Normal Affect, Normal Mood - Skin Skin Exam: Dry, Normal Color, Warm Assessment and Plan (1) Leukocytosis, unspecified Assessment & Plan: F/U blood, sputum, stool, foot wound, and urine cultures F/U C diff F/U abd CT with PO contrast F/U MRI of the foot Status: Acute (2) SBO (small bowel obstruction) Status: Resolved (3) Postoperative ileus Assessment & Plan: Continue reglan, CLD, and monitoring bowel function Minimize narcotic use as possible Encourage PT Status: Acute (4) On total parenteral nutrition (TPN) Assessment & Plan: Will DC TPN today after current bag is completed Status: Acute (5) Malnutrition following gastrointestinal surgery Assessment & Plan: Will DC TPN--tolerating Will start on Clear supplement Status: Acute (6) Cough Assessment & Plan: Improved Continue duonebs PRN and incentive spirometer use Status: Acute (7) Dehydration Status: Resolved (8) Foot pain Assessment & Plan: F/U podiatry recs F/U MRI of the foot Status: Chronic (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 Scanlon's recommendations Continue current insulin regimen and D5 1/2 NS for fluids d/t vacilating glucose levels Status: Acute (11) Hypertension Assessment & Plan: Continue current medications Status: Chronic (12) S/P AKA (above knee amputation) unilateral Assessment & Plan: PT/OT Status: Chronic (13) Pancreatic mass Status: Acute (14) Diabetes mellitus type 2 in nonobese Assessment & Plan: Continue insulin and D5 fluids per endocrine recs Status: Chronic (15) Lung mass Status: Chronic (16) PVD (peripheral vascular disease) Assessment & Plan: restart cilostazol Hold brillinta d/t low hgb Status: Chronic
[2018-04-15] MEDS ORDERED: Potassium & Sodium Phosphate PO ONE (09:20)
[2018-04-15] MEDS ORDERED: Magnesium Oxide 400 mg Tab UD PO ONE (09:21)
[2018-04-15] MEDS: Sucralfate 1 gm/10 ml Oral Susp UD PO SCH ×3 (09:30→17:10)
[2018-04-15] MEDS: Enoxaparin 40 mg Syringe SC SCH (09:30)
[2018-04-15 09:59] LABS: BANDS 3 % (0-2); EOSINOPHIL 2 % (0-7); LYMPHOCYTE 8 % (20-50); MONOCYTE 6 % (0-10); NEUTROPHIL 81 % (42-75); TOTAL CELLS COUNTED 100
[2018-04-15 10:00] LABS: ANISOCYTOSIS SLIGHT; HYPOCHROMIC SLIGHT; LARGE PLATELETS PRESENT; PLATELET ESTIMATE SLIGHTLY INCREASED (NORMAL); TOXIC GRANULATION PRESENT
--- NOTE | 2018-04-15 11:07 | RAD ---
Date of service: 04/15/2018 HISTORY: Possible pneumonia COMPARISON: Comparison chest 04/10/2018. comparison also made with CT abdomen and pelvis 04/10/2018 which imaged both lung bases. FINDINGS: LUNGS: Suspect persistent small bilateral effusions right larger than left with bibasilar atelectasis. PLEURA: As above. No pneumothorax apparent. CARDIOVASCULAR: Heart size remains enlarged. Normal cardiac size. No pulmonary vascular congestion. OSSEOUS STRUCTURES: No significant abnormalities. VISUALIZED UPPER ABDOMEN: Normal. OTHER FINDINGS: None. IMPRESSION: Suspect persistent small bilateral effusions right larger than left with bibasilar atelectasis.
[2018-04-15] MEDS ORDERED: Potassium Ch 20mEq in D5-1/2NS 1,000 ML IV SCH ×2 (11:44→23:30)
[2018-04-15] MEDS ORDERED: oxyCODONE 10 mg Immediate Release Tab PO PRN (11:46)
--- NOTE | 2018-04-15 12:19 | CP.PCM.PN ---
Subjective - Date & Time of Evaluation Date of Evaluation: 04/15/18 Time of Evaluation: 11:30 - Subjective Subjective: Patient was seen and examined bedside . All chart and clinical data reviewed. He is feeling better today . Had soft bowel movement this AM and passing flatus. Tolerated some liquid diet. Denies any SOB, cough , CP, fever , chills. Denies any abdominal pain at present Hemodynamically is stable, afebrile. Abdomen is distended with normal bowel sounds and tympanic WBC noted to trend up to 20 K and Hgb 8.8 . All cultures ordered , Blood and urine , CT abd/pelvis and chest ordered Again with episodes of hypoglycemia yesterday so levemir was held Procalcitonin elevated Objective - Vital Signs/Intake and Output Vital Signs (last 24 hours): Temp Pulse Resp BP Pulse Ox 97.9 F 91 H 20 135/71 98 04/15/18 08:11 04/15/18 09:30 04/15/18 08:11 04/15/18 09:30 04/15/18 08:11 - Medications Medications: Current Medications Acetaminophen (Tylenol 325mg/10.15ml Ud) 325 mg PO Q6 PRN PRN Reason: Pain, Mild (1-3) Last Admin: 04/14/18 17:42 Dose: 325 mg Acetaminophen (Tylenol 325mg Tab) 650 mg PO Q6 PRN PRN Reason: Pain, severe (8-10) Albuterol/Ipratropium (Duoneb 3 Mg/0.5 Mg (3 Ml) Ud) 3 ml INH RQ4 PRN PRN Reason: Shortness of Breath Atorvastatin Calcium (Lipitor) 40 mg PO DAILY [facility] Last Admin: 04/15/18 09:33 Dose: 40 mg Carvedilol (Coreg) 25 mg PO Q12 [facility] Last Admin: 04/15/18 09:30 Dose: 25 mg Clotrimazole (Mycelex Sandor) 10 mg MT 5XD [facility] Last Admin: 04/15/18 09:52 Dose: Not Given Dextrose (Dextrose 50% Inj) 0 ml IV STAT PRN; Protocol PRN Reason: Hypoglycemia Protocol Last Admin: 04/14/18 17:49 Dose: 50 ml Dextrose (Glutose 15) 0 gm PO ONCE PRN; Protocol PRN Reason: Hypoglycemia Protocol Enoxaparin Sodium (Lovenox) 40 mg SC DAILY [facility]; Protocol Last Admin: 04/15/18 09:30 Dose: 40 mg Gabapentin (Neurontin) 300 mg PO HS [facility] Last Admin: 04/14/18 21:10 Dose: 300 mg Glucagon (Glucagen Diagnostic Kit) 0 mg IM STAT PRN; Protocol PRN Reason: Hypoglycemia Protocol Piperacillin Sod/Tazobactam (Sod 3.375 gm/ Sodium Chloride) 100 mls @ 100 mls/hr IVPB Q6 [facility]; Protocol Last Admin: 04/15/18 09:37 Dose: 100 mls/hr Multivitamins/Vitamin C 10 ml/Chromium/Copper/Manganese/Zinc 3 ml/ Amino Acids/Electrolytes/Dextrose 1,013 mls @ 40 mls/hr IV .Q24H [facility] Stop: 04/15/18 15:59 Potassium Chloride/Dextrose/Sod Cl (Potassium Chl 20 Meq In D5-1/2ns) 1,000 mls @ 60 mls/hr IV .[id number] [facility] Stop: 04/15/18 17:59 Insulin Human Lispro (Humalog) 0 units SC Q6H [facility]; Protocol Last Admin: 04/15/18 05:57 Dose: Not Given Lidocaine HCl (Lidocaine 2% Viscous) 15 ml PO Q4 PRN PRN Reason: Sore Throat Last Admin: 04/07/18 18:25 Dose: 15 ml Metoclopramide HCl (Reglan) 10 mg IVP Q6 [facility] Stop: 04/16/18 16:01 Metronidazole (Flagyl) 500 mg PO Q8 [facility]; Protocol Last Admin: 04/15/18 10:04 Dose: 500 mg Ondansetron HCl (Zofran Inj) 4 mg IVP Q6 PRN PRN Reason: Nausea/Vomiting Last Admin: 04/14/18 09:33 Dose: 4 mg Oxycodone HCl (Oxycodone Immediate Release Tab) 5 mg PO Q6 PRN PRN Reason: Pain, moderate (4-7) Last Admin: 04/13/18 09:05 Dose: 5 mg Oxycodone HCl (Oxycodone Immediate Release Tab) 10 mg PO Q6 PRN PRN Reason: Pain, severe (8-10) Pantoprazole Sodium (Protonix Inj) 40 mg IVP DAILY [facility] Last Admin: 04/15/18 09:35 Dose: 40 mg Phenol/Menthol (Phenaseptic 1.4% Throat [place]) 1 spry MT Q2 PRN PRN Reason: Nausea/Vomiting Sodium Hypochlorite (Dakins Solution 0.25%) 0 ml TOP DAILY [facility] Last Admin: 04/14/18 09:09 Dose: 1 u Sucralfate (Carafate Oral Susp) 1 gm PO BID [facility] Last Admin: 04/15/18 09:44 Dose: Not Given Ticagrelor (Brilinta) 90 mg PO BID [facility] - Labs Labs: 04/15/18 06:20 04/15/18 06:20 PT 13.7 Seconds (9.8-13.1) H 04/01/18 21:53 INR 1.2 04/01/18 21:53 APTT 32.8 Seconds (25.6-37.1) 04/01/18 21:53 - Constitutional Appears: Non-toxic, No Acute Distress, Cachectic, Chronically Ill - Head Exam Head Exam: ATRAUMATIC, NORMOCEPHALIC - Eye Exam Eye Exam: EOMI, PERRL Pupil Exam: NORMAL ACCOMODATION - ENT Exam ENT Exam: Mucous Membranes Moist, Normal Exam - Neck Exam Neck Exam: Full ROM, Normal Inspection - Respiratory Exam Respiratory Exam: Clear to Ausculation Bilateral, NORMAL BREATHING PATTERN. absent: Rales, Rhonchi, Wheezes - Cardiovascular Exam Cardiovascular Exam: REGULAR RHYTHM, RRR, +S1, +S2. absent: JVD - GI/Abdominal Exam GI & Abdominal Exam: Soft, Normal Bowel Sounds. absent: Distended, Guarding, Tenderness, Rebound - Rectal Exam Rectal Exam: Deferred - Extremities Exam Extremities Exam: absent: Pedal Edema Additional comments: right AKA Left foot dressing in place - Back Exam Back Exam: NORMAL INSPECTION - Neurological Exam Neurological Exam: Alert, Awake, CN II-XII Intact, Oriented x3 - Psychiatric Exam Psychiatric exam: Normal Affect, Normal Mood - Skin Skin Exam: Dry, Warm Assessment and Plan - Assessment and Plan (Free Text) Assessment: 62 y/o male with multiple PMH including PVD, DM , HTN , dyslipidemia, Left foot OM treated with 6 weeks of IV antibiotics presented with abdominal pain and was admitted for SBO. Underwent laparatomy with adhenolysis and resection of perforated small bowel area with primary anastomosis.Post op developed ileus so was kept NPO with NGT in place , receiving IVF and PPN. Ay present having BM and passing flatus.Patient is afebrile and hemodynamically stable, feels better today but with worsening WBC count 20 K , elevated procalcitonin . episodes of hypoglycemia yesterday after levemir was started 1.Small bowel obstruction s/p laparatomy with adhenolysis Small bowel perforation s/p bowel resection with primary anastomosis post op ileus today feeling better , passig flatus and had soft BM in AM. Minimal intake of liquid diet. Pain is controlled and BS present WBC trending up , procalcitonin elevated but patient afebrile Will order blood , urine Cx, CT chest,CT abdomen and pelvis Continue IVF and PPN pain management Check electrolytes and replace Continue Zosyn .Added Flagyl IV 2.HTN- chronic , controlled on Coreg 3.DM - uncontrolled. with episodes of hypoglycemia Discontinued levemir Endo on consult Continue accuchecks and insulin coverage Continue PPN 4.PVD -s/p Right AKA and left Toe distal ray amputation. Has history OM treated with 6 weeks IV antibiotics Podiatry on consult MRI left foot odered to r/o OM 5. Anemia of chronic disease stable 6.Dyslipidemia on statin 7.Cachexia BMI 19 8.Bilateral pleural effusion continue incentive spirometry no respiratory distress ordered Ct chest 9. DVT prophylaxis on Lovenox
[2018-04-15] MEDS: Dakin's Topical 0.25%-Half Strength (480 ml) TOP SCH (12:54)
--- NOTE | 2018-04-15 15:24 | CP.PCM.PCO ---
Physician Communication Note - Physician Communication Note Physician Communication Note: Every other staple removed from abdominal incision Addendum Addendum: 04/15/18 15:24 purulent drainage expressed from inferior pole of abdominal incision, probed with cotton tip applicator, and packed with plain gauze
[2018-04-15] MEDS: oxyCODONE 5 mg Immediate Release Tab PO PRN (17:20)
--- NOTE | 2018-04-15 20:13 | PN ---
DATE: 04/15/2018 ENDOCRINOLOGY FOLLOWUP NOTE LOCATION: Room 653. SUBJECTIVE: This is a 62-year-old male with recent exploratory laparotomy for supervening small bowel obstruction and is now being followed closely postoperatively as noted. He has been advanced to a liquid diet which he poorly tolerates at this time. His glucose values are fluctuating with glucose levels ranging from 130-222 and 241 mg/dL. LABORATORY DATA: His chemistry showed a BUN of 10, sodium 133, potassium 4.4, chloride 100, CO2 of 22, glucose 223 and creatinine 0.6. ASSESSMENT AND PLAN: So at this time, we will initiate a low-dose oral hypoglycemic therapy with glipizide given as 2.5 mg b.i.d. before meals as ordered. We will obtain serial chemistries and supplement accordingly as needed. We will follow. Gabi Scanlon MD
[2018-04-16] MEDS: Insulin Lispro (humaLOG) 100 Units/ml Inj SC SCH ×5 (00:14→23:59)
[2018-04-16] MEDS: Piperacillin/Tazobact 3.375 GM in Sodium Chloride 0.9% 100 ML IVPB SCH ×4 (03:38→21:01)
--- NOTE | 2018-04-16 07:24 | CP.PCM.PN ---
Subjective - Date & Time of Evaluation Date of Evaluation: 04/16/18 Time of Evaluation: 07:24 - Subjective Subjective: Patient seen this morning, resting comfortably in bed. Patient reports mild abdominal discomfort with loose BMs from 1am to 6am. Tolerating liquid diet well at this time. Denies nausea/vomiting/fever/shortness of breath chest pain. Objective - Vital Signs/Intake and Output Vital Signs (last 24 hours): Temp Pulse Resp BP Pulse Ox 97.7 F 88 18 112/62 99 04/15/18 23:44 04/15/18 23:44 04/15/18 23:44 04/15/18 23:44 04/15/18 23:44 - Medications Medications: Current Medications Acetaminophen (Tylenol 325mg/10.15ml Ud) 325 mg PO Q6 PRN PRN Reason: Pain, Mild (1-3) Last Admin: 04/14/18 17:42 Dose: 325 mg Acetaminophen (Tylenol 325mg Tab) 650 mg PO Q6 PRN PRN Reason: Pain, severe (8-10) Albuterol/Ipratropium (Duoneb 3 Mg/0.5 Mg (3 Ml) Ud) 3 ml INH RQ4 PRN PRN Reason: Shortness of Breath Atorvastatin Calcium (Lipitor) 40 mg PO DAILY [facility] Last Admin: 04/15/18 09:33 Dose: 40 mg Carvedilol (Coreg) 25 mg PO Q12 [facility] Last Admin: 04/15/18 21:43 Dose: 25 mg Clotrimazole (Mycelex Sandor) 10 mg MT 5XD [facility] Last Admin: 04/16/18 05:00 Dose: Not Given Dextrose (Dextrose 50% Inj) 0 ml IV STAT PRN; Protocol PRN Reason: Hypoglycemia Protocol Last Admin: 04/14/18 17:49 Dose: 50 ml Dextrose (Glutose 15) 0 gm PO ONCE PRN; Protocol PRN Reason: Hypoglycemia Protocol Enoxaparin Sodium (Lovenox) 40 mg SC DAILY [facility]; Protocol Last Admin: 04/15/18 09:30 Dose: 40 mg Gabapentin (Neurontin) 300 mg PO HS [facility] Last Admin: 04/15/18 21:43 Dose: 300 mg Glipizide (Glucotrol) 2.5 mg PO ACBD [facility] Last Admin: 04/15/18 17:07 Dose: 2.5 mg Glucagon (Glucagen Diagnostic Kit) 0 mg IM STAT PRN; Protocol PRN Reason: Hypoglycemia Protocol Piperacillin Sod/Tazobactam (Sod 3.375 gm/ Sodium Chloride) 100 mls @ 100 mls/hr IVPB Q6 [facility]; Protocol Last Admin: 04/16/18 03:38 Dose: 100 mls/hr Potassium Chloride/Dextrose/Sod Cl (Potassium Chl 20 Meq In D5-1/2ns) 1,000 mls @ 80 mls/hr IV .[id number] [facility] Stop: 04/16/18 23:28 Insulin Human Lispro (Humalog) 0 units SC Q6H [facility]; Protocol Last Admin: 04/16/18 07:05 Dose: Not Given Lidocaine HCl (Lidocaine 2% Viscous) 15 ml PO Q4 PRN PRN Reason: Sore Throat Last Admin: 04/07/18 18:25 Dose: 15 ml Metoclopramide HCl (Reglan) 10 mg IVP Q6 [facility] Stop: 04/16/18 16:01 Last Admin: 04/16/18 04:13 Dose: 10 mg Metronidazole (Flagyl) 500 mg PO Q8 [facility]; Protocol Last Admin: 04/16/18 00:50 Dose: 500 mg Ondansetron HCl (Zofran Inj) 4 mg IVP Q6 PRN PRN Reason: Nausea/Vomiting Last Admin: 04/14/18 09:33 Dose: 4 mg Oxycodone HCl (Oxycodone Immediate Release Tab) 5 mg PO Q6 PRN PRN Reason: Pain, moderate (4-7) Last Admin: 04/15/18 17:20 Dose: 5 mg Oxycodone HCl (Oxycodone Immediate Release Tab) 10 mg PO Q6 PRN PRN Reason: Pain, severe (8-10) Last Admin: 04/15/18 23:22 Dose: 10 mg Pantoprazole Sodium (Protonix Inj) 40 mg IVP DAILY [facility] Last Admin: 04/15/18 09:35 Dose: 40 mg Phenol/Menthol (Phenaseptic 1.4% Throat [place]) 1 spry MT Q2 PRN PRN Reason: Nausea/Vomiting Sodium Hypochlorite (Dakins Solution 0.25%) 0 ml TOP DAILY [facility] Last Admin: 04/15/18 12:54 Dose: Not Given Sucralfate (Carafate Oral Susp) 1 gm PO BID [facility] Last Admin: 04/15/18 17:10 Dose: Not Given Ticagrelor (Brilinta) 90 mg PO BID [facility] - Labs Labs: 04/15/18 06:20 04/15/18 06:20 PT 13.7 Seconds (9.8-13.1) H 04/01/18 21:53 INR 1.2 04/01/18 21:53 APTT 32.8 Seconds (25.6-37.1) 04/01/18 21:53 - Constitutional Appears: Non-toxic, No Acute Distress - Head Exam Head Exam: ATRAUMATIC, NORMOCEPHALIC - Respiratory Exam Respiratory Exam: Clear to Ausculation Bilateral, NORMAL BREATHING PATTERN - Cardiovascular Exam Cardiovascular Exam: REGULAR RHYTHM - GI/Abdominal Exam GI & Abdominal Exam: Firm, Tenderness - Extremities Exam Additional comments: Right AKA. Left foot dressing clean/dry/intact Left lower extremity cool to touch - Neurological Exam Neurological Exam: Alert, Awake, Oriented x3 - Psychiatric Exam Psychiatric exam: Normal Affect, Normal Mood Assessment and Plan - Assessment and Plan (Free Text) Assessment: 62 year old male patient, with PMHx of HTN, PVD, DMII, admitted for partial SBO Plan: 1. Small Bowel Obstruction; resolved - Afebrile - General Surgery as primary team, Dr. López. - NPO, IV 1/2NS at 100mL/hr - On IV Zosyn, Zofran PRN, Pantoprazole daily - C/w pain management - On TPN 2. C. Diff - Acute - C Diff toxin + - C/w Flagyl 3. Leukocytosis - Acute - WBC 17.7, trending down - VSS - F/u chest/abd CT - Continue with IV Zosyn. - Blood Cx no growth after 4 days. - Pro-calcitonin .52 4. DMII, uncontrolled with episodes of hypoglycemia - Chronic - Insulin sliding scale - ACHS - Endocrinology consulted, Dr Scanlon, reccs appreciated 5. Chronic normocytic anemia - acute - Hgb 8.8 6. Cachexia - Advanced to liquid diet - TPN d/c 7. L foot ulcer secondary to PVD, R AKA - Chronic - Podiatry consulted, Dr. Pham, reccs appreciated - Left LE MRI ordered, r/o OM 8. HTN - Chronic - C/w Coreg 9. HLD - Chronic - C/w Lipitor 10. DVT prophylaxis - Lovenox 40 mg SC daily
[2018-04-16 07:41] LABS: BASO # 0.1 K/uL (0.0-0.2); BASO % 0.7 % (0.0-2.0); EOS # 0.2 K/uL (0.0-0.7); EOS % 1.2 % (0.0-4.0); HEMOGLOBIN 7.7 g/dL (12.0-18.0); LYMPH # 2.4 K/uL (1.0-4.3); LYMPH % 13.3 % (20.0-40.0); MEAN CELL VOLUME 86.6 fl (80.0-94.0); MEAN CORPUSCULAR HEMOGLOBIN 28.2 pg (27.0-31.0); MEAN CORPUSCULAR HGB CONC 32.6 g/dL (33.0-37.0); MEAN PLATELET VOLUME 9.8 fl (7.2-11.7); MONO % 5.9 % (0.0-10.0); NEUT # 13.9 K/uL (1.8-7.0); NEUT % 78.9 % (50.0-75.0); RBC 2.73 Mil/uL (4.40-5.90); RED CELL DISTRIBUTION WIDTH 16.3 % (11.5-14.5); WHITE BLOOD COUNT 17.7 K/uL (4.8-10.8)
[2018-04-16 07:55] LABS: ALB/GLOB RATIO 0.7 (1.0-2.1); ALBUMIN 2.2 g/dL (3.5-5.0); ALT/SGPT 17 U/L (21-72); AST/SGOT 13 U/L (17-59); BLOOD UREA NITROGEN 8 mg/dl (9-20); CALCIUM 7.6 mg/dL (8.4-10.2); GFR NON-AFRICAN AMERICAN > 60
[2018-04-16] MEDS: Sucralfate 1 gm/10 ml Oral Susp UD PO SCH ×2 (08:46→16:19)
[2018-04-16] MEDS: Enoxaparin 40 mg Syringe SC SCH (08:46)
--- NOTE | 2018-04-16 11:25 | CP.PCM.PN ---
Subjective - Date & Time of Evaluation Date of Evaluation: 04/16/18 Time of Evaluation: 11:29 - Subjective Subjective: General Surgery Note for Dr. López Patient seen and examined at bedside. No acute event overnight. Patient reports pain is improved from yesterday. He reports 3 loose BMs. Patient tolerating liquid diet. He wants to get out of bed and sit in wheelchair today. Patient reports distention still. Denies fever/chills, cp, SOB, vomiting, constipation, urinary symptoms. Objective - Vital Signs/Intake and Output Vital Signs (last 24 hours): Temp Pulse Resp BP Pulse Ox 97.8 F 83 18 122/65 99 04/16/18 08:48 04/16/18 08:48 04/16/18 08:48 04/16/18 08:48 04/16/18 08:11 - Medications Medications: Current Medications Acetaminophen (Tylenol 325mg/10.15ml Ud) 325 mg PO Q6 PRN PRN Reason: Pain, Mild (1-3) Last Admin: 04/14/18 17:42 Dose: 325 mg Acetaminophen (Tylenol 325mg Tab) 650 mg PO Q6 PRN PRN Reason: Pain, severe (8-10) Last Admin: 04/16/18 07:48 Dose: 650 mg Albuterol/Ipratropium (Duoneb 3 Mg/0.5 Mg (3 Ml) Ud) 3 ml INH RQ4 PRN PRN Reason: Shortness of Breath Atorvastatin Calcium (Lipitor) 40 mg PO DAILY [facility] Last Admin: 04/16/18 08:48 Dose: 40 mg Carvedilol (Coreg) 25 mg PO Q12 [facility] Last Admin: 04/16/18 08:47 Dose: 25 mg Clotrimazole (Mycelex Sandor) 10 mg MT 5XD [facility] Last Admin: 04/16/18 08:47 Dose: 10 mg Dextrose (Dextrose 50% Inj) 0 ml IV STAT PRN; Protocol PRN Reason: Hypoglycemia Protocol Last Admin: 04/14/18 17:49 Dose: 50 ml Dextrose (Glutose 15) 0 gm PO ONCE PRN; Protocol PRN Reason: Hypoglycemia Protocol Enoxaparin Sodium (Lovenox) 40 mg SC DAILY [facility]; Protocol Last Admin: 04/16/18 08:46 Dose: 40 mg Gabapentin (Neurontin) 300 mg PO HS [facility] Last Admin: 04/15/18 21:43 Dose: 300 mg Glipizide (Glucotrol) 2.5 mg PO ACBD [facility] Last Admin: 04/16/18 08:49 Dose: 2.5 mg Glucagon (Glucagen Diagnostic Kit) 0 mg IM STAT PRN; Protocol PRN Reason: Hypoglycemia Protocol Piperacillin Sod/Tazobactam (Sod 3.375 gm/ Sodium Chloride) 100 mls @ 100 mls/hr IVPB Q6 [facility]; Protocol Last Admin: 04/16/18 03:38 Dose: 100 mls/hr Potassium Chloride/Dextrose/Sod Cl (Potassium Chl 20 Meq In D5-1/2ns) 1,000 mls @ 80 mls/hr IV .[id number] [facility] Stop: 04/16/18 23:28 Insulin Human Lispro (Humalog) 0 units SC Q6H [facility]; Protocol Last Admin: 04/16/18 07:05 Dose: Not Given Lidocaine HCl (Lidocaine 2% Viscous) 15 ml PO Q4 PRN PRN Reason: Sore Throat Last Admin: 04/07/18 18:25 Dose: 15 ml Metoclopramide HCl (Reglan) 10 mg IVP Q6 [facility] Stop: 04/16/18 16:01 Last Admin: 04/16/18 09:00 Dose: 10 mg Metronidazole (Flagyl) 500 mg PO Q8 [facility]; Protocol Last Admin: 04/16/18 08:49 Dose: 500 mg Ondansetron HCl (Zofran Inj) 4 mg IVP Q6 PRN PRN Reason: Nausea/Vomiting Last Admin: 04/14/18 09:33 Dose: 4 mg Oxycodone HCl (Oxycodone Immediate Release Tab) 5 mg PO Q6 PRN PRN Reason: Pain, moderate (4-7) Last Admin: 04/15/18 17:20 Dose: 5 mg Oxycodone HCl (Oxycodone Immediate Release Tab) 10 mg PO Q6 PRN PRN Reason: Pain, severe (8-10) Last Admin: 04/15/18 23:22 Dose: 10 mg Pantoprazole Sodium (Protonix Inj) 40 mg IVP DAILY [facility] Last Admin: 04/16/18 08:50 Dose: 40 mg Phenol/Menthol (Phenaseptic 1.4% Throat [place]) 1 spry MT Q2 PRN PRN Reason: Nausea/Vomiting Sodium Hypochlorite (Dakins Solution 0.25%) 0 ml TOP DAILY [facility] Last Admin: 04/15/18 12:54 Dose: Not Given Sucralfate (Carafate Oral Susp) 1 gm PO BID [facility] Last Admin: 04/16/18 08:46 Dose: 1 gm Ticagrelor (Brilinta) 90 mg PO BID [facility] - Labs Labs: 04/16/18 06:20 04/16/18 06:20 PT 13.7 Seconds (9.8-13.1) H 04/01/18 21:53 INR 1.2 04/01/18 21:53 APTT 32.8 Seconds (25.6-37.1) 04/01/18 21:53 - Constitutional Appears: No Acute Distress - Head Exam Head Exam: ATRAUMATIC, NORMOCEPHALIC - Eye Exam Eye Exam: EOMI, Normal appearance - ENT Exam ENT Exam: Mucous Membranes Moist - Respiratory Exam Respiratory Exam: Clear to Ausculation Bilateral - Cardiovascular Exam Cardiovascular Exam: REGULAR RHYTHM - GI/Abdominal Exam GI & Abdominal Exam: Distended (mild), Soft, Tenderness (midline incision), Normal Bowel Sounds. absent: Firm, Guarding, Rigid Additional comments: midline incision with packing inferiorly running to superior pole, babita in p lace on upper portion of incision, no erythema or drainage noted - Extremities Exam Extremities Exam: Normal Capillary Refill - Back Exam Back Exam: absent: CVA tenderness (L), CVA tenderness (R) - Neurological Exam Neurological Exam: Alert, Awake, CN II-XII Intact, Oriented x3 - Psychiatric Exam Psychiatric exam: Normal Affect, Normal Mood - Skin Skin Exam: Dry, Normal Color, Warm Assessment and Plan - Assessment and Plan (Free Text) Assessment: 62M PMH of HTN, peripheral vascular disease, uncontrolled diabetes mellitus (not on home insulin as pt not agreeable), right AKA, admitted for bowel obstruction; s/p laparotomy lysis of adhesions and resection of ileal perforation with primary anastamosis POD#12. Plan: Small Bowel Obstruction - Resolving, having loose BMs and passing flatus - anti-emetic and pain control PRN - monitor daily electrolytes, replete as necessary - Reglan - encourage OOB into chair - aggressive physical therapy Leukocytosis - restart on Abx; zosyn - CXR 04/10: Lower lobe atalectasis - UA 04/10: negative - CT A/P w/ PO& IV contrast: dilated rectum, dialated smallbowel loops- better than before. anastomotic site intact - C.diff antigen positive but toxin negative Uncontrolled Diabetes Mellitus, type 2, with hyperglycemia. - c/s Endocrinology; all recs appreciated - sliding scale - insulin sliding scale - HbA1c 15.4 Cough - duonebs PRN; cough improved - Aggressive Incentive Spirometry - chest physiotherapy - OOB and into chair - Physical Therapy - CXR shows atalectasis PVD, L Foot ulcer - Chronic - c/s Podiatry; all recs appreciated - daily dressing changes w/ Dakins Chronic normocytic anemia - Stable - Daily CBC. Cachexia -Pt reports significant weight loss in past 3 months -Continue enteral feeds, ADAT Prophylaxis - Lovenox, and Protonix Discussed with Dr. Maribel Fernando PGY2
--- NOTE | 2018-04-16 11:33 | CT ---
Date of service: 04/15/2018 PROCEDURE: CT Abdomen and Pelvis with contrast HISTORY: s/p exlap for perf small bowel, leukocytosis COMPARISON: Abdomen pelvis CT with contrast 04/10/2018. TECHNIQUE: Helical CT of the abdomen and pelvis was performed without oral or intravenous contrast as per referring physician request. Coronal and sagittal reformats were generated. Contrast dose: None Radiation dose: Total exam DLP = 506.17 mGy-cm. This CT exam was performed using one or more of the following dose reduction techniques: Automated exposure control, adjustment of the mA and/or kV according to patient size, and/or use of iterative reconstruction technique. FINDINGS: LOWER THORAX: See separate chest CT also performed 04/07/2018. LIVER: There is now portal venous gas in the periphery of the liver likely intertwined with more proximal and central appearing pneumobilia. There is diminishing free intra peritoneal gas identified in the nondependent upper abdomen peritoneal space. GALLBLADDER AND BILE DUCTS: Cholecystectomy reiterated. PANCREAS: Prominent pancreatic dilatation is reiterated with chronic pancreatitis pattern again evident. SPLEEN: Stable and unremarkable appearing. ADRENALS: Stable and unremarkable appearing. KIDNEYS AND URETERS: Punctate intrarenal calculus remains nonobstructive at the left kidney. No obstructive uropathy bilaterally. VASCULATURE: Extensive aortic iliac arterial atherosclerotic plaque is again identified. BOWEL: No definitive bowel obstruction appreciated. Residual oral contrast seen within large bowel with the trace amount of oral contrast in the stomach. Pneumatosis intestinalis reiterated primarily at the central left lower quadrant small bowel loops and possibly in the central pelvis as well. This pattern appears increased at the left lower quadrant and left flank within new loop of distended likely small bowel at the central to lower abdomen now affected at the dependent portion. An osteomyelitis suture line is seen adjacent to this small bowel loop. Additional and not cirrhotic line is seen the right lower quadrant abdomen. APPENDIX: Not identified. PERITONEUM: Gross anasarca pattern reiterated with limited dominant ascites not completely excluded though difficult to evaluate given the amount of extensive anasarca present in this patient. This also limits definition of small-bowel loops from 1 another in the abdomen and pelvis. LYMPH NODES: No gross lymphadenopathy appreciable. BLADDER: Trace linear radiodense material is identified at the dependent urinary bladder which could reflect hematuria. REPRODUCTIVE: Unremarkable. BONES: Stable multilevel lumbar spondylosis without fracture evident. OTHER FINDINGS: None. IMPRESSION: 1. Mildly diminished free intra peritoneal gas however pneumatosis intestinalis has increased in various small bowel loops in the abdomen as discussed above with gross anasarca and there is now portal venous gas likely intermixed with pneumobilia with the former suspicious for bowel ischemia/infarction. Surgical consultation advised. 2. Diminishing free intra peritoneal gas. Extensive anasarca reiterated if not worsening. 3. Prior cholecystectomy. 4. Chronic pancreatitis including dilatation of the pancreatic duct reiterated. 5. Lesser findings as discussed above. Findings discussed with Dr. López with written down read back verification 04/16/1910 20 a.m..
--- NOTE | 2018-04-16 11:50 | CT ---
Date of service: 04/15/2018 PROCEDURE: CT Chest without contrast HISTORY: bilateral infiltrates COMPARISON: CT angiogram chest 10/06/2017. TECHNIQUE: Contiguous axial images were obtained through the chest without intravenous contrast enhancement. Sagittal and coronal reconstructions were performed. Radiation dose: Total exam DLP = 306.3 mGy-cm. This CT exam was performed using one or more of the following dose reduction techniques: Automated exposure control, adjustment of the mA and/or kV according to patient size, and/or use of iterative reconstruction technique. FINDINGS: LUNGS: Linear atelectasis identified in the bilateral lower lobes with compression atelectasis of the right greater than left lower lobes. Linear atelectasis or fibrosis seen affecting the lingula as well. Trace emphysematous change are identified at the bilateral upper lobes predominantly. Central airways appear grossly clear. Underlying pneumonia is difficult to exclude at the bilateral lower lobe bases. Scar versus spiculated nodule left apex under 1 cm size MEDIASTINUM: Extensive anasarca is appreciated. Thoracic aorta is normal in caliber with main pulmonary artery also normal in caliber. No gross lymphadenopathy. Lack of intravenous contrast and the presence of extensive anasarca limits definition of the mediastinum and lymph nodes are poorly evaluated nonetheless. Mild cardiomegaly noted. No pulmonary vascular congestion definitively shown. Calcific atherosclerotic changes are seen related to the thoracic aorta. PLEURA: Minimal bilateral pleural effusions are identified with tiny calcified pleural plaques identified at the left greater than right lower lobe pleura. BONES: No fracture. No destructive lesion. UPPER ABDOMEN: Free intra peritoneal gas, pneumobilia and portal venous gas as well as prior cholecystectomy and chronic pancreatitis. Please see separate abdomen pelvis CT without contrast also performed 04/15/2018. OTHER FINDINGS: None. IMPRESSION: 1. Trace bilateral pleural effusions with bilateral basilar dependent atelectasis and linear atelectasis identified at the lower lobes and lingula with underlying infiltrates difficult exclude the bilateral lower lobe bases. 2. Scar versus spiculated nodule left apex under 1 cm size. 3. Mild cardiomegaly. 4. Morbid, incidental upper abdominal findings as discussed above. Please see separate abdomen pelvis CT which evaluates these findings more extensively also performed 04/15/2018.
[2018-04-16 11:52] LABS: BASO # 0.1 K/uL (0.0-0.2); BASO % 0.7 % (0.0-2.0); EOS # 0.3 K/uL (0.0-0.7); EOS % 1.6 % (0.0-4.0); HEMOGLOBIN 7.3 g/dL (12.0-18.0); LYMPH % 12.6 % (20.0-40.0); MEAN CELL VOLUME 86.1 fl (80.0-94.0); MEAN CORPUSCULAR HGB CONC 32.5 g/dL (33.0-37.0); MEAN PLATELET VOLUME 9.7 fl (7.2-11.7); MONO % 6.1 % (0.0-10.0); NEUT # 12.6 K/uL (1.8-7.0); NRBC % 0.1 % (0.0-0.0); RBC 2.6 Mil/uL (4.40-5.90); RED CELL DISTRIBUTION WIDTH 16.1 % (11.5-14.5); WHITE BLOOD COUNT 15.9 K/uL (4.8-10.8)
[2018-04-16] MEDS: Dakin's Topical 0.25%-Half Strength (480 ml) TOP SCH (12:08)
[2018-04-16 12:36] LABS: C-PEPTIDE 0.45 ng/mL (0.80-3.85)
--- NOTE | 2018-04-16 14:16 | PN ---
DATE: 04/16/2018 ENDOCRINOLOGY FOLLOWUP NOTE LOCATION: Room 653. SUBJECTIVE: This is a 62-year-old male with recent uncontrolled type 2 diabetes presenting here with small bowel obstruction and underwent a laparotomy procedure and has now been advanced to clear liquid diet as noted. His glycemic levels have improved overnight and have ranged from 151-152 mg/dL. LABORATORY DATA: His chemistry showed a BUN of 8, sodium 134, potassium 4.2, chloride 101, CO2 of 25, glucose 142 and creatinine 0.7. ASSESSMENT AND PLAN: So at this time, we will continue the glipizide given as 2.5 mg b.i.d. before meals as ordered. We will obtain serial chemistries and supplement accordingly as needed. We will follow. Gabi Scanlon MD
--- NOTE | 2018-04-16 16:14 | CP.PCM.PN ---
Subjective - Date & Time of Evaluation Date of Evaluation: 04/16/18 Time of Evaluation: 16:13 - Subjective Subjective: Podiatry progress note - Dr. Pham 62 y/o male seen and evaluated at bedside. Resting comfortably. Patient states the abdominal pain from yesterday has significantly decreased. Patient reports passing bowel movement again this morning. Patient complaining of diarrhea at this time Objective - Vital Signs/Intake and Output Vital Signs (last 24 hours): Temp Pulse Resp BP Pulse Ox 97.8 F 83 18 122/65 99 04/16/18 08:48 04/16/18 08:48 04/16/18 08:48 04/16/18 08:48 04/16/18 08:11 - Medications Medications: Current Medications Acetaminophen (Tylenol 325mg/10.15ml Ud) 325 mg PO Q6 PRN PRN Reason: Pain, Mild (1-3) Last Admin: 04/14/18 17:42 Dose: 325 mg Acetaminophen (Tylenol 325mg Tab) 650 mg PO Q6 PRN PRN Reason: Pain, severe (8-10) Last Admin: 04/16/18 07:48 Dose: 650 mg Albuterol/Ipratropium (Duoneb 3 Mg/0.5 Mg (3 Ml) Ud) 3 ml INH RQ4 PRN PRN Reason: Shortness of Breath Atorvastatin Calcium (Lipitor) 40 mg PO DAILY [facility] Last Admin: 04/16/18 08:48 Dose: 40 mg Carvedilol (Coreg) 25 mg PO Q12 [facility] Last Admin: 04/16/18 08:47 Dose: 25 mg Clotrimazole (Mycelex Sandor) 10 mg MT 5XD [facility] Last Admin: 04/16/18 12:10 Dose: 10 mg Dextrose (Dextrose 50% Inj) 0 ml IV STAT PRN; Protocol PRN Reason: Hypoglycemia Protocol Last Admin: 04/14/18 17:49 Dose: 50 ml Dextrose (Glutose 15) 0 gm PO ONCE PRN; Protocol PRN Reason: Hypoglycemia Protocol Enoxaparin Sodium (Lovenox) 40 mg SC DAILY [facility]; Protocol Last Admin: 04/16/18 08:46 Dose: 40 mg Gabapentin (Neurontin) 300 mg PO HS [facility] Last Admin: 04/15/18 21:43 Dose: 300 mg Glipizide (Glucotrol) 2.5 mg PO ACBD [facility] Last Admin: 04/16/18 08:49 Dose: 2.5 mg Glucagon (Glucagen Diagnostic Kit) 0 mg IM STAT PRN; Protocol PRN Reason: Hypoglycemia Protocol Piperacillin Sod/Tazobactam (Sod 3.375 gm/ Sodium Chloride) 100 mls @ 100 mls/hr IVPB Q6 [facility]; Protocol Last Admin: 04/16/18 12:19 Dose: 100 mls/hr Potassium Chloride/Dextrose/Sod Cl (Potassium Chl 20 Meq In D5-1/2ns) 1,000 mls @ 80 mls/hr IV .[id number] [facility] Stop: 04/16/18 23:28 Last Admin: 04/16/18 12:11 Dose: 80 mls/hr Insulin Human Lispro (Humalog) 0 units SC Q6H [facility]; Protocol Last Admin: 04/16/18 12:22 Dose: Not Given Lidocaine HCl (Lidocaine 2% Viscous) 15 ml PO Q4 PRN PRN Reason: Sore Throat Last Admin: 04/07/18 18:25 Dose: 15 ml Metronidazole (Flagyl) 500 mg PO Q8 [facility]; Protocol Last Admin: 04/16/18 08:49 Dose: 500 mg Ondansetron HCl (Zofran Inj) 4 mg IVP Q6 PRN PRN Reason: Nausea/Vomiting Last Admin: 04/14/18 09:33 Dose: 4 mg Oxycodone HCl (Oxycodone Immediate Release Tab) 5 mg PO Q6 PRN PRN Reason: Pain, moderate (4-7) Last Admin: 04/15/18 17:20 Dose: 5 mg Oxycodone HCl (Oxycodone Immediate Release Tab) 10 mg PO Q6 PRN PRN Reason: Pain, severe (8-10) Last Admin: 04/15/18 23:22 Dose: 10 mg Pantoprazole Sodium (Protonix Inj) 40 mg IVP DAILY [facility] Last Admin: 04/16/18 08:50 Dose: 40 mg Phenol/Menthol (Phenaseptic 1.4% Throat [place]) 1 spry MT Q2 PRN PRN Reason: Nausea/Vomiting Sodium Hypochlorite (Dakins Solution 0.25%) 0 ml TOP DAILY [facility] Last Admin: 04/16/18 12:08 Dose: Not Given Sucralfate (Carafate Oral Susp) 1 gm PO BID [facility] Last Admin: 04/16/18 08:46 Dose: 1 gm Ticagrelor (Brilinta) 90 mg PO BID [facility] - Labs Labs: 04/16/18 11:35 04/16/18 06:20 PT 13.7 Seconds (9.8-13.1) H 04/01/18 21:53 INR 1.2 04/01/18 21:53 APTT 32.8 Seconds (25.6-37.1) 04/01/18 21:53 - Constitutional Appears: Well, Non-toxic, No Acute Distress - Head Exam Head Exam: ATRAUMATIC, NORMOCEPHALIC - Extremities Exam Additional comments: LLE focused exam: Vascular: DP non-palpable PT non-palpable, TG warm to cool, no evidence of edema Ortho: Right AKA, pain to the left ulcer site Neuro: gross sensation intact, protective sensation diminished Derm: arterial non-healing ulcer noted to the left first ray with 30% necrotic and 70% granular base, no malodor noted, minimal active drainage, no fluctuance, no erythema, no tunneling or tracking, no probe to bone, gangrenous changes noted to the left 2nd digit and the tip of the 3rd digits, dry gangrene, no signs of infection - Neurological Exam Neurological Exam: Alert, Awake, Oriented x3 - Psychiatric Exam Psychiatric exam: Normal Affect, Normal Mood Assessment and Plan - Assessment and Plan (Free Text) Assessment: 62M with left foot nonhealing hallux ulcer Plan: Patient seen and evaluated Discussed in detail with Dr. Pham Chart, labs and vitals reviewed- afebrile, positive leukocytosis trending down Wound cleansed with sterile saline and dressed with dakins and DSD Wound Culture obtained MRI ordered of the left foot to r/o osteomyelitis X-ray left foot - irregular navicular, normal post amputation site CT- bulky calcific plaque of the distal common femoral artery extending into the prox SFA and also the profunda. Abnormal course of anterior tibial artery which is otherwise patent Podiatry will continue to change dressing, and await further input from surgery and vascular teams regarding whether any podiatric intervention can be performed
--- NOTE | 2018-04-16 17:21 | MRI ---
Date of service: 04/16/2018 PROCEDURE: Left foot MRI without contrast HISTORY: r/o osteo in left foot COMPARISON: Left foot radiographs 04/02/2018. TECHNIQUE: Multiplanar multisequential MR imaging of the left foot was performed without intravenous gadolinium as requested. FINDINGS: Study is compromised by markedly poor fat saturation including STIR and fat suppressed T2 weighted sequences. Prior left great toe and distal 1st metatarsal amputation is reiterated. Edematous changes are diffuse but mild throughout the dorsal foot soft tissues with no definite abscess appreciable. Unfortunately, the biliary to exclude osteomyelitis is quite poor due to the inadequate level of fat saturation in the exam. Correlation three-phase nuclear bone scan is recommended instead or new cleared tagged white blood cell examination. Osteomyelitis at the digits is not suspected. Plantar plate is intact without fasciitis evident. No tenosynovitis appreciable. Myositis is question at the forefoot midfoot musculature dorsally and at the plantar foot soft tissues. Lisfranc ligament appears intact grossly. IMPRESSION: Failure fat separation precludes adequate evaluation of the Marrow. Accordingly, is difficult to evaluate for osteomyelitis. Prior great toe and distal segment 1st metatarsal amputation are reiterated. Myositis is suggested at the forefoot and midfoot musculature as discussed above on relatively diffuse basis. Consider follow-up nuclear three-phase bone scan or tagged white blood cell study to evaluate for potential osteomyelitis.
[2018-04-16] MEDS: Vancomycin 500 mg (Oral/Rectal USE) PO SCH (18:14)
[2018-04-16] MEDS ORDERED: Sodium Chloride 3% for Inhalation 4 ML VIAL.NEB IH PRN (19:47)
[2018-04-17] MEDS: Vancomycin 500 mg (Oral/Rectal USE) PO SCH ×3 (00:01→18:54)
[2018-04-17] MEDS: Piperacillin/Tazobact 3.375 GM in Sodium Chloride 0.9% 100 ML IVPB SCH ×4 (03:32→21:45)
[2018-04-17] MEDS: oxyCODONE 5 mg Immediate Release Tab PO PRN ×2 (03:38→19:00)
[2018-04-17] MEDS: Insulin Lispro (humaLOG) 100 Units/ml Inj SC SCH (05:50)
[2018-04-17 07:02] LABS: HEMOGLOBIN 9.3 g/dL (12.0-18.0); MEAN CELL VOLUME 86.9 fl (80.0-94.0); MEAN CORPUSCULAR HEMOGLOBIN 28.5 pg (27.0-31.0); MEAN CORPUSCULAR HGB CONC 32.8 g/dL (33.0-37.0); RBC 3.25 Mil/uL (4.40-5.90); RED CELL DISTRIBUTION WIDTH 15.8 % (11.5-14.5); WHITE BLOOD COUNT 14.8 K/uL (4.8-10.8)
--- NOTE | 2018-04-17 08:44 | CP.PCM.PN ---
Subjective - Date & Time of Evaluation Date of Evaluation: 04/17/18 Time of Evaluation: 06:00 - Subjective Subjective: General Surgery Progress Note for Dr. López This 42M was seen and examined this AM at bedside. No acute event overnight. One BM last night partially formed. Received one PRBC overnight. Patient reports pain is improved. Patient tolerating liquid diet. Denies fever/chills, cp, SOB, vomiting, constipation, urinary symptoms. Wound packing changed this AM manoj jaramillo. Wound bed looks clean no purulence. Objective - Vital Signs/Intake and Output Vital Signs (last 24 hours): Temp Pulse Resp BP Pulse Ox 97.5 F L 79 20 136/69 100 04/17/18 08:11 04/17/18 08:11 04/17/18 08:11 04/17/18 08:11 04/17/18 08:11 Intake and Output: 04/17/18 04/17/18 06:59 18:59 Intake Total 375 Balance 375 - Medications Medications: Current Medications Acetaminophen (Tylenol 325mg/10.15ml Ud) 325 mg PO Q6 PRN PRN Reason: Pain, Mild (1-3) Last Admin: 04/14/18 17:42 Dose: 325 mg Acetaminophen (Tylenol 325mg Tab) 650 mg PO Q6 PRN PRN Reason: Pain, severe (8-10) Last Admin: 04/16/18 07:48 Dose: 650 mg Albuterol/Ipratropium (Duoneb 3 Mg/0.5 Mg (3 Ml) Ud) 3 ml INH RQ4 PRN PRN Reason: Shortness of Breath Atorvastatin Calcium (Lipitor) 40 mg PO DAILY [facility] Last Admin: 04/16/18 08:48 Dose: 40 mg Carvedilol (Coreg) 25 mg PO Q12 [facility] Last Admin: 04/16/18 20:51 Dose: 25 mg Clotrimazole (Mycelex Sandor) 10 mg MT 5XD [facility] Last Admin: 04/17/18 05:50 Dose: Not Given Dextrose (Dextrose 50% Inj) 0 ml IV STAT PRN; Protocol PRN Reason: Hypoglycemia Protocol Last Admin: 04/14/18 17:49 Dose: 50 ml Dextrose (Glutose 15) 0 gm PO ONCE PRN; Protocol PRN Reason: Hypoglycemia Protocol Enoxaparin Sodium (Lovenox) 40 mg SC DAILY [facility]; Protocol Last Admin: 04/16/18 08:46 Dose: 40 mg Gabapentin (Neurontin) 300 mg PO HS [facility] Last Admin: 04/16/18 21:00 Dose: 300 mg Glipizide (Glucotrol) 2.5 mg PO ACBD [facility] Last Admin: 04/16/18 16:20 Dose: 2.5 mg Glucagon (Glucagen Diagnostic Kit) 0 mg IM STAT PRN; Protocol PRN Reason: Hypoglycemia Protocol Piperacillin Sod/Tazobactam (Sod 3.375 gm/ Sodium Chloride) 100 mls @ 100 mls/hr IVPB Q6 [facility]; Protocol Last Admin: 04/17/18 03:32 Dose: 100 mls/hr Insulin Human Lispro (Humalog) 0 units SC Q6H [facility]; Protocol Last Admin: 04/17/18 05:50 Dose: Not Given Lidocaine HCl (Lidocaine 2% Viscous) 15 ml PO Q4 PRN PRN Reason: Sore Throat Last Admin: 04/07/18 18:25 Dose: 15 ml Metronidazole (Flagyl) 500 mg PO Q8 [facility]; Protocol Last Admin: 04/17/18 00:00 Dose: 500 mg Ondansetron HCl (Zofran Inj) 4 mg IVP Q6 PRN PRN Reason: Nausea/Vomiting Last Admin: 04/14/18 09:33 Dose: 4 mg Oxycodone HCl (Oxycodone Immediate Release Tab) 5 mg PO Q6 PRN PRN Reason: Pain, moderate (4-7) Last Admin: 04/17/18 03:38 Dose: 5 mg Oxycodone HCl (Oxycodone Immediate Release Tab) 10 mg PO Q6 PRN PRN Reason: Pain, severe (8-10) Last Admin: 04/15/18 23:22 Dose: 10 mg Pantoprazole Sodium (Protonix Inj) 40 mg IVP DAILY [facility] Last Admin: 04/16/18 08:50 Dose: 40 mg Phenol/Menthol (Phenaseptic 1.4% Throat [place]) 1 spry MT Q2 PRN PRN Reason: Nausea/Vomiting Potassium Phos/Sodium Phos (Neutra-Phos) 1 pkt PO BID [facility] Sodium Hypochlorite (Dakins Solution 0.25%) 0 ml TOP DAILY [facility] Last Admin: 04/16/18 12:08 Dose: Not Given Sucralfate (Carafate Oral Susp) 1 gm PO BID [facility] Last Admin: 04/16/18 16:19 Dose: Not Given Ticagrelor (Brilinta) 90 mg PO BID [facility] Vancomycin HCl (Vancocin (Oral/Rectal Use)) 125 mg PO Q8 [facility]; Protocol Last Admin: 04/17/18 00:01 Dose: 125 mg - Labs Labs: 04/17/18 05:57 04/16/18 06:20 PT 13.7 Seconds (9.8-13.1) H 04/01/18 21:53 INR 1.2 04/01/18 21:53 APTT 32.8 Seconds (25.6-37.1) 04/01/18 21:53 - Constitutional Appears: No Acute Distress - Head Exam Head Exam: ATRAUMATIC, NORMOCEPHALIC - Eye Exam Eye Exam: EOMI, Normal appearance - ENT Exam ENT Exam: Mucous Membranes Moist - Respiratory Exam Respiratory Exam: Clear to Ausculation Bilateral - Cardiovascular Exam Cardiovascular Exam: REGULAR RHYTHM - GI/Abdominal Exam GI & Abdominal Exam: Distended (mild), Soft, Tenderness (midline incision), Normal Bowel Sounds. absent: Firm, Guarding, Rigid Additional comments: midline incision with packing inferiorly, babita in place on upper portion of incision, no erythema or drainage noted - Extremities Exam Extremities Exam: Normal Capillary Refill - Back Exam Back Exam: absent: CVA tenderness (L), CVA tenderness (R) - Neurological Exam Neurological Exam: Alert, Awake, CN II-XII Intact, Oriented x3 - Psychiatric Exam Psychiatric exam: Normal Affect, Normal Mood - Skin Skin Exam: Dry, Normal Color, Warm Assessment and Plan - Assessment and Plan (Free Text) Assessment: 62M PMH of HTN, peripheral vascular disease, uncontrolled diabetes mellitus (not on home insulin as pt not agreeable), right AKA, admitted for bowel obstruction; s/p laparotomy lysis of adhesions and resection of ileal perforation with primary anastamosis POD#13. Plan: Small Bowel Obstruction - Resolving, having loose BMs and passing flatus - anti-emetic and pain control PRN - monitor daily electrolytes, replete as necessary - Reglan - encourage OOB into chair - aggressive physical therapy Leukocytosis decreasing - Continue PO vanc Uncontrolled Diabetes Mellitus, type 2, with hyperglycemia. - c/s Endocrinology; all recs appreciated - sliding scale - insulin sliding scale - HbA1c 15.4 Cough - duonebs PRN; cough improved - Aggressive Incentive Spirometry - chest physiotherapy - OOB and into chair - Physical Therapy - CXR shows atalectasis PVD, L Foot ulcer - Chronic - c/s Podiatry; all recs appreciated - daily dressing changes w/ Dakins Chronic normocytic anemia - Stable - Daily CBC. Cachexia -Pt reports significant weight loss in past 3 months -Continue enteral feeds, ADAT -Hyperalimentation PPN or TPN Prophylaxis - Lovenox, and Protonix D/W Dr. Cecy Medeiros PGY3
[2018-04-17] MEDS: Potassium & Sodium Phosphate PO SCH ×2 (09:31→18:53)
[2018-04-17] MEDS: Sucralfate 1 gm/10 ml Oral Susp UD PO SCH ×2 (09:33→18:52)
[2018-04-17] MEDS: Dextrose 50% SYRINGE Inj (50 ml) IV PRN (11:08)
--- NOTE | 2018-04-17 11:21 | CP.PCM.PN ---
Subjective - Date & Time of Evaluation Date of Evaluation: 04/17/18 Time of Evaluation: 11:00 - Subjective Subjective: No fever feels better no abd pin abd less distended tolerting Clear liquid diet wants to have regular food had one episode of soft BM this am and once last night sl nausea this am had episode of hypoglycemia - received D50 no CP no SOB Objective - Vital Signs/Intake and Output Vital Signs (last 24 hours): Temp Pulse Resp BP Pulse Ox 97.5 F L 79 20 136/69 100 04/17/18 08:11 04/17/18 09:33 04/17/18 08:11 04/17/18 09:33 04/17/18 08:11 Intake and Output: 04/17/18 04/17/18 06:59 18:59 Intake Total 375 Balance 375 - Medications Medications: Current Medications Acetaminophen (Tylenol 325mg/10.15ml Ud) 325 mg PO Q6 PRN PRN Reason: Pain, Mild (1-3) Last Admin: 04/14/18 17:42 Dose: 325 mg Acetaminophen (Tylenol 325mg Tab) 650 mg PO Q6 PRN PRN Reason: Pain, severe (8-10) Last Admin: 04/16/18 07:48 Dose: 650 mg Albuterol/Ipratropium (Duoneb 3 Mg/0.5 Mg (3 Ml) Ud) 3 ml INH RQ4 PRN PRN Reason: Shortness of Breath Atorvastatin Calcium (Lipitor) 40 mg PO DAILY [facility] Last Admin: 04/17/18 09:32 Dose: 40 mg Carvedilol (Coreg) 25 mg PO Q12 [facility] Last Admin: 04/17/18 09:33 Dose: 25 mg Clotrimazole (Mycelex Sandor) 10 mg MT 5XD [facility] Last Admin: 04/17/18 09:31 Dose: 10 mg Dextrose (Dextrose 50% Inj) 0 ml IV STAT PRN; Protocol PRN Reason: Hypoglycemia Protocol Last Admin: 04/17/18 11:08 Dose: 25 ml Dextrose (Glutose 15) 0 gm PO ONCE PRN; Protocol PRN Reason: Hypoglycemia Protocol Enoxaparin Sodium (Lovenox) 40 mg SC DAILY [facility]; Protocol Last Admin: 04/16/18 08:46 Dose: 40 mg Gabapentin (Neurontin) 300 mg PO HS [facility] [place] Last Admin: 04/16/18 21:00 Dose: 300 mg Glipizide (Glucotrol) 2.5 mg PO ACBD [facility] Last Admin: 04/17/18 09:32 Dose: 2.5 mg Glucagon (Glucagen Diagnostic Kit) 0 mg IM STAT PRN; Protocol PRN Reason: Hypoglycemia Protocol Piperacillin Sod/Tazobactam (Sod 3.375 gm/ Sodium Chloride) 100 mls @ 100 mls/hr IVPB Q6 [facility]; Protocol Last Admin: 04/17/18 09:29 Dose: 100 mls/hr Insulin Human Lispro (Humalog) 0 units SC Q6H [facility]; Protocol Last Admin: 04/17/18 05:50 Dose: Not Given Lidocaine HCl (Lidocaine 2% Viscous) 15 ml PO Q4 PRN PRN Reason: Sore Throat Last Admin: 04/07/18 18:25 Dose: 15 ml Ondansetron HCl (Zofran Inj) 4 mg IVP Q6 PRN PRN Reason: Nausea/Vomiting Last Admin: 04/14/18 09:33 Dose: 4 mg Oxycodone HCl (Oxycodone Immediate Release Tab) 5 mg PO Q6 PRN PRN Reason: Pain, moderate (4-7) Last Admin: 04/17/18 03:38 Dose: 5 mg Oxycodone HCl (Oxycodone Immediate Release Tab) 10 mg PO Q6 PRN PRN Reason: Pain, severe (8-10) Last Admin: 04/15/18 23:22 Dose: 10 mg Pantoprazole Sodium (Protonix Inj) 40 mg IVP DAILY [facility] Last Admin: 04/17/18 09:31 Dose: 40 mg Phenol/Menthol (Phenaseptic 1.4% Throat [place]) 1 spry MT Q2 PRN PRN Reason: Nausea/Vomiting Potassium Phos/Sodium Phos (Neutra-Phos) 1 pkt PO BID [facility] Last Admin: 04/17/18 09:31 Dose: 1 pkt Sodium Hypochlorite (Dakins Solution 0.25%) 0 ml TOP DAILY [facility] Last Admin: 04/16/18 12:08 Dose: Not Given Sucralfate (Carafate Oral Susp) 1 gm PO BID [facility] Last Admin: 04/17/18 09:33 Dose: 1 gm Ticagrelor (Brilinta) 90 mg PO BID [facility] Vancomycin HCl (Vancocin (Oral/Rectal Use)) 125 mg PO Q8 [facility]; Protocol Last Admin: 04/17/18 09:30 Dose: 125 mg - Labs Labs: 04/17/18 05:57 04/16/18 06:20 PT 13.7 Seconds (9.8-13.1) H 04/01/18 21:53 INR 1.2 04/01/18 21:53 APTT 32.8 Seconds (25.6-37.1) 04/01/18 21:53 Assessment and Plan - Assessment and Plan (Free Text) Plan: Small Bowel Obstruction Ileum Perforation s/p Open Laparotomy with adhesiolysis and resection of area of perforated ileum - Pt tolerating Clear Liquid diet - + BM, no fever - Surgery following pt - on IV Zosyn PVD - hx of Right AKA, with Chronic Left Foot Ulcer due to PVD - pt on Lipitor, off Brilinta due to + Hemoccult and drop in H/H, will restart when cleared by Surgery - Vascular and Podiatry on the case DM type II , very brittle with episodes of Hyperglycemia/Hypoglycemia - low glucose =56 this am, given D50 - d/c Glipizide as pt has very poor PO intake ( liquid diet) and diarrhea - accucheck Anemia of Chronic Dis s/p PRBC transfusion hgb now 9.3 from 7.3 yesterday C Diff Colitis - cont PO Vanco - improving , WBC ct trending down , diarrhea better HTN pt on Coreg
--- NOTE | 2018-04-17 12:00 | PN ---
DATE: 04/17/2018 LOCATION: Room 653. SUBJECTIVE: This is a 62-year-old male with recent uncontrolled type 2 diabetes presenting here with small bowel obstruction and underwent an exploratory laparotomy and is now being followed closely for metabolic management. His glycemic levels are low normal, but improved as noted overnight ranging from 76 to 102 and 119 mg/dL. His chemistry showed a BUN of 8, sodium 134, potassium 4.2, chloride 101, CO2 of 25, glucose 142 and creatinine 0.7. So, at this time, we will continue the same low-dose oral hypoglycemic therapy with glipizide given as 2.5 mg b.i.d. as ordered. We will obtain serial chemistries and supplement accordingly as needed. We will follow. Gabi Scanlon MD
[2018-04-18] MEDS: Vancomycin 500 mg (Oral/Rectal USE) PO SCH ×3 (01:30→16:42)
[2018-04-18] MEDS: Piperacillin/Tazobact 3.375 GM in Sodium Chloride 0.9% 100 ML IVPB SCH (04:30)
--- NOTE | 2018-04-18 07:31 | CP.PCM.PN ---
Subjective - Date & Time of Evaluation Date of Evaluation: 04/18/18 Time of Evaluation: 07:28 - Subjective Subjective: Gen Sx: Dr Palomino Pt S&E. NAEO. Reports he feels much better. Bowel movements becoming more solid. Requesting more solid food. On TPN and PO Vanco. Leukocytosis improving. Objective - Vital Signs/Intake and Output Vital Signs (last 24 hours): Temp Pulse Resp BP Pulse Ox 97.7 F 79 18 118/65 99 04/18/18 00:19 04/18/18 00:19 04/18/18 00:19 04/18/18 00:19 04/18/18 00:19 Intake and Output: 04/18/18 04/18/18 06:59 18:59 Intake Total 1400 Output Total 600 Balance 800 - Medications Medications: Current Medications Acetaminophen (Tylenol 325mg/10.15ml Ud) 325 mg PO Q6 PRN PRN Reason: Pain, Mild (1-3) Last Admin: 04/14/18 17:42 Dose: 325 mg Acetaminophen (Tylenol 325mg Tab) 650 mg PO Q6 PRN PRN Reason: Pain, severe (8-10) Last Admin: 04/16/18 07:48 Dose: 650 mg Albuterol/Ipratropium (Duoneb 3 Mg/0.5 Mg (3 Ml) Ud) 3 ml INH RQ4 PRN PRN Reason: Shortness of Breath Atorvastatin Calcium (Lipitor) 40 mg PO DAILY [facility] Last Admin: 04/17/18 09:32 Dose: 40 mg Carvedilol (Coreg) 25 mg PO Q12 [facility] Last Admin: 04/17/18 21:45 Dose: 25 mg Clotrimazole (Mycelex Sandor) 10 mg MT 5XD [facility] Last Admin: 04/18/18 05:51 Dose: Not Given Dextrose (Dextrose 50% Inj) 0 ml IV STAT PRN; Protocol PRN Reason: Hypoglycemia Protocol Last Admin: 04/17/18 11:08 Dose: 25 ml Dextrose (Glutose 15) 0 gm PO ONCE PRN; Protocol PRN Reason: Hypoglycemia Protocol Enoxaparin Sodium (Lovenox) 40 mg SC DAILY [facility]; Protocol Last Admin: 04/16/18 08:46 Dose: 40 mg Gabapentin (Neurontin) 300 mg PO HS [facility] Last Admin: 04/17/18 21:45 Dose: 300 mg Glucagon (Glucagen Diagnostic Kit) 0 mg IM STAT PRN; Protocol PRN Reason: Hypoglycemia Protocol Chromium/Copper/Manganese/Zinc 3 ml/ Multivitamins/Vitamin C 10 ml/ Amino Acids 1,013 mls @ 83.3 mls/hr IV .[id number] [facility] Amino Acids (Clinimix 4.25/5 % "E" (1000 Ml)) 1,000 mls @ 83.3 mls/hr IV .[id number] [facility] Last Admin: 04/18/18 04:29 Dose: 83.3 mls/hr Lidocaine HCl (Lidocaine 2% Viscous) 15 ml PO Q4 PRN PRN Reason: Sore Throat Last Admin: 04/07/18 18:25 Dose: 15 ml Ondansetron HCl (Zofran Inj) 4 mg IVP Q6 PRN PRN Reason: Nausea/Vomiting Last Admin: 04/14/18 09:33 Dose: 4 mg Oxycodone HCl (Oxycodone Immediate Release Tab) 5 mg PO Q6 PRN PRN Reason: Pain, moderate (4-7) Last Admin: 04/17/18 19:00 Dose: 5 mg Oxycodone HCl (Oxycodone Immediate Release Tab) 10 mg PO Q6 PRN PRN Reason: Pain, severe (8-10) Last Admin: 04/15/18 23:22 Dose: 10 mg Pantoprazole Sodium (Protonix Inj) 40 mg IVP DAILY [facility] Last Admin: 04/17/18 09:31 Dose: 40 mg Phenol/Menthol (Phenaseptic 1.4% Throat [place]) 1 spry MT Q2 PRN PRN Reason: Nausea/Vomiting Potassium Phos/Sodium Phos (Neutra-Phos) 1 pkt PO BID [facility] Last Admin: 04/17/18 18:53 Dose: 1 pkt Sodium Hypochlorite (Dakins Solution 0.25%) 0 ml TOP DAILY [facility] Last Admin: 04/16/18 12:08 Dose: Not Given Sucralfate (Carafate Oral Susp) 1 gm PO BID [facility] Last Admin: 04/17/18 18:52 Dose: 1 gm Ticagrelor (Brilinta) 90 mg PO BID [facility] Vancomycin HCl (Vancocin (Oral/Rectal Use)) 125 mg PO Q8 [facility]; Protocol Last Admin: 04/17/18 18:54 Dose: 125 mg - Labs Labs: 04/17/18 05:57 04/16/18 06:20 PT 13.7 Seconds (9.8-13.1) H 04/01/18 21:53 INR 1.2 04/01/18 21:53 APTT 32.8 Seconds (25.6-37.1) 04/01/18 21:53 - Constitutional Appears: Non-toxic, No Acute Distress - Respiratory Exam Respiratory Exam: absent: Respiratory Distress - Cardiovascular Exam Cardiovascular Exam: REGULAR RHYTHM. absent: Tachycardia - GI/Abdominal Exam GI & Abdominal Exam: Soft. absent: Distended, Tenderness - Neurological Exam Neurological Exam: Alert, Awake Assessment and Plan - Assessment and Plan (Free Text) Assessment: Assessment: 62M PMH of HTN, peripheral vascular disease, uncontrolled diabetes mellitus (not on home insulin as pt not agreeable), right AKA, admitted for bowel obstruction; s/p laparotomy lysis of adhesions and resection of ileal perforation with primary anastamosis POD#14. Plan: Small Bowel Obstruction - Resolved - anti-emetic and pain control PRN - monitor daily electrolytes, replete as necessary - Reglan - encourage OOB into chair - aggressive physical therapy Leukocytosis decreasing - Continue PO vanc Cough - duonebs PRN; cough resolved - Aggressive Incentive Spirometry PVD, L Foot ulcer - Chronic - c/s Podiatry; all recs appreciated - daily dressing changes w/ Dakins Cachexia -Continue enteral feeds, ADAT - advancing to ADA today -Hyperalimentation TPN - will reduce to half rate Prophylaxis - Lovenox, and Protonix D/W Dr. Cecy Bradshaw PGY4
[2018-04-18] MEDS: Sucralfate 1 gm/10 ml Oral Susp UD PO SCH ×2 (09:20→16:38)
[2018-04-18] MEDS: Potassium & Sodium Phosphate PO SCH ×2 (09:21→16:42)
[2018-04-18] MEDS: oxyCODONE 5 mg Immediate Release Tab PO PRN ×2 (14:19→20:50)
--- NOTE | 2018-04-18 14:23 | CP.PCM.PN ---
Subjective - Date & Time of Evaluation Date of Evaluation: 04/18/18 Time of Evaluation: 14:21 - Subjective Subjective: Podiatry progress note: Dr. Pham Patient seen and evaluated this morning, resting comfortably and in NAD. Patient states that he is having less pain to his foot today. He admits to one episode of diarrhea this morning. Mj nausea/vomiting/fever. Dressing clean/dry/intact, no strike through. Objective - Vital Signs/Intake and Output Vital Signs (last 24 hours): Temp Pulse Resp BP Pulse Ox 98.0 F 98 H 19 130/69 98 04/18/18 08:07 04/18/18 09:20 04/18/18 08:07 04/18/18 09:20 04/18/18 08:07 Intake and Output: 04/18/18 04/18/18 06:59 18:59 Intake Total 1400 Output Total 600 Balance 800 - Medications Medications: Current Medications Acetaminophen (Tylenol 325mg/10.15ml Ud) 325 mg PO Q6 PRN PRN Reason: Pain, Mild (1-3) Last Admin: 04/14/18 17:42 Dose: 325 mg Acetaminophen (Tylenol 325mg Tab) 650 mg PO Q6 PRN PRN Reason: Pain, severe (8-10) Last Admin: 04/16/18 07:48 Dose: 650 mg Albuterol/Ipratropium (Duoneb 3 Mg/0.5 Mg (3 Ml) Ud) 3 ml INH RQ4 PRN PRN Reason: Shortness of Breath Atorvastatin Calcium (Lipitor) 40 mg PO DAILY [facility] Last Admin: 04/18/18 09:21 Dose: 40 mg Carvedilol (Coreg) 25 mg PO Q12 [facility] Last Admin: 04/18/18 09:20 Dose: 25 mg Clotrimazole (Mycelex Sandor) 10 mg MT 5XD [facility] Last Admin: 04/18/18 13:57 Dose: Not Given Dextrose (Dextrose 50% Inj) 0 ml IV STAT PRN; Protocol PRN Reason: Hypoglycemia Protocol Last Admin: 04/17/18 11:08 Dose: 25 ml Dextrose (Glutose 15) 0 gm PO ONCE PRN; Protocol PRN Reason: Hypoglycemia Protocol Enoxaparin Sodium (Lovenox) 40 mg SC DAILY [facility]; Protocol Last Admin: 03/01/19 08:46 Dose: 40 mg Gabapentin (Neurontin) 300 mg PO HS [facility] Last Admin: 04/17/18 21:45 Dose: 300 mg Glucagon (Glucagen Diagnostic Kit) 0 mg IM STAT PRN; Protocol PRN Reason: Hypoglycemia Protocol Chromium/Copper/Manganese/Zinc 3 ml/ Multivitamins/Vitamin C 10 ml/ Amino Acids 1,013 mls @ 83.3 mls/hr IV .[id number] [facility] Last Admin: 04/18/18 04:30 Dose: 83.3 mls/hr Amino Acids (Clinimix 4.25/5 % "E" (1000 Ml)) 1,000 mls @ 83.3 mls/hr IV .Q12H1M [facility] Last Admin: 04/18/18 04:29 Dose: 83.3 mls/hr Lidocaine HCl (Lidocaine 2% Viscous) 15 ml PO Q4 PRN PRN Reason: Sore Throat Last Admin: 04/07/18 18:25 Dose: 15 ml Ondansetron HCl (Zofran Inj) 4 mg IVP Q6 PRN PRN Reason: Nausea/Vomiting Last Admin: 04/14/18 09:33 Dose: 4 mg Oxycodone HCl (Oxycodone Immediate Release Tab) 5 mg PO Q6 PRN PRN Reason: Pain, moderate (4-7) Last Admin: 04/18/18 14:19 Dose: 5 mg Pantoprazole Sodium (Protonix Inj) 40 mg IVP DAILY [facility] Last Admin: 04/18/18 09:22 Dose: 40 mg Phenol/Menthol (Phenaseptic 1.4% Throat [place]) 1 spry MT Q2 PRN PRN Reason: Nausea/Vomiting Potassium Phos/Sodium Phos (Neutra-Phos) 1 pkt PO BID [facility] Last Admin: 04/18/18 09:21 Dose: 1 pkt Sucralfate (Carafate Oral Susp) 1 gm PO BID [facility] Last Admin: 04/18/18 09:20 Dose: 1 gm Ticagrelor (Brilinta) 90 mg PO BID [facility] Vancomycin HCl (Vancocin (Oral/Rectal Use)) 125 mg PO Q8 [facility]; Protocol Last Admin: 04/18/18 09:22 Dose: 125 mg - Labs Labs: 04/17/18 05:57 04/16/18 06:20 PT 13.7 Seconds (9.8-13.1) H 04/01/18 21:53 INR 1.2 04/01/18 21:53 APTT 32.8 Seconds (25.6-37.1) 04/01/18 21:53 - Constitutional Appears: Non-toxic, No Acute Distress - Head Exam Head Exam: ATRAUMATIC, NORMOCEPHALIC - Extremities Exam Additional comments: LLE focused exam: Vascular: DP non-palpable PT non-palpable, TG warm to cool, no evidence of edema at this time Ortho: Right AKA, pain to the left ulcer site with dressing changes, muscle atrophy appreciated Neuro: gross sensation intact, protective sensation diminished Derm: arterial non-healing ulcer noted to the left first ray with 30% necrotic and 70% granular base, no malodor noted, minimal active drainage, no fluctuance, no erythema, no tunneling or tracking, no probe to bone, gangrenous changes noted to the left 2nd digit and the tip of the 3rd digits, dry gangrene, no signs of infection - Neurological Exam Neurological Exam: Alert, Awake, Oriented x3 - Psychiatric Exam Psychiatric exam: Normal Affect, Normal Mood Assessment and Plan - Assessment and Plan (Free Text) Assessment: 62 year old male with left foot nonhealing hallux ulcer Plan: Patient seen and evaluated Discussed in detail with Dr. Pham Chart, labs and vitals reviewed- afebrile, positive leukocytosis trending down Wound cleansed with sterile saline and dressed with dakins and DSD Wound Culture obtained; prelim no growht MRI ordered of the left foot to r/o osteomyelitis; pending X-ray left foot - irregular navicular, normal post amputation site CT- bulky calcific plaque of the distal common femoral artery extending into the prox SFA and also the profunda. Abnormal course of anterior tibial artery which is otherwise patent Podiatry will continue to follow, and await further input from surgery and vascular teams regarding whether any podiatric intervention can be performed for debridement
--- NOTE | 2018-04-18 16:28 | CP.PCM.PN ---
Subjective - Date & Time of Evaluation Date of Evaluation: 04/18/18 Time of Evaluation: 11:00 - Subjective Subjective: No fever started on Regular diet and feels great no N/V no abd pain + 1 BM this am, soft denies SOB no CP Objective - Vital Signs/Intake and Output Vital Signs (last 24 hours): Temp Pulse Resp BP Pulse Ox 97.2 F L 77 20 143/70 99 04/18/18 16:14 04/18/18 16:14 04/18/18 16:14 04/18/18 16:14 04/18/18 16:14 Intake and Output: 04/18/18 04/18/18 06:59 18:59 Intake Total 1400 Output Total 600 Balance 800 - Medications Medications: Current Medications Acetaminophen (Tylenol 325mg/10.15ml Ud) 325 mg PO Q6 PRN PRN Reason: Pain, Mild (1-3) Last Admin: 04/14/18 17:42 Dose: 325 mg Acetaminophen (Tylenol 325mg Tab) 650 mg PO Q6 PRN PRN Reason: Pain, severe (8-10) Last Admin: 04/16/18 07:48 Dose: 650 mg Albuterol/Ipratropium (Duoneb 3 Mg/0.5 Mg (3 Ml) Ud) 3 ml INH RQ4 PRN PRN Reason: Shortness of Breath Atorvastatin Calcium (Lipitor) 40 mg PO DAILY [facility] Last Admin: 04/18/18 09:21 Dose: 40 mg Carvedilol (Coreg) 25 mg PO Q12 [facility] Last Admin: 04/18/18 09:20 Dose: 25 mg Clotrimazole (Mycelex Sandor) 10 mg MT 5XD [facility] Last Admin: 04/18/18 13:57 Dose: Not Given Dextrose (Dextrose 50% Inj) 0 ml IV STAT PRN; Protocol PRN Reason: Hypoglycemia Protocol Last Admin: 04/17/18 11:08 Dose: 25 ml Dextrose (Glutose 15) 0 gm PO ONCE PRN; Protocol PRN Reason: Hypoglycemia Protocol Enoxaparin Sodium (Lovenox) 40 mg SC DAILY [facility]; Protocol Last Admin: 04/16/18 08:46 Dose: 40 mg Gabapentin (Neurontin) 300 mg PO HS [facility] Last Admin: 04/17/18 21:45 Dose: 300 mg Glucagon (Glucagen Diagnostic Kit) 0 mg IM STAT PRN; Protocol PRN Reason: Hypoglycemia Protocol Chromium/Copper/Manganese/Zinc 3 ml/ Multivitamins/Vitamin C 10 ml/ Amino Acids 1,013 mls @ 83.3 mls/hr IV .[id number] [facility] Last Admin: 04/18/18 04:30 Dose: 83.3 mls/hr Amino Acids (Clinimix 4.25/5 % "E" (1000 Ml)) 1,000 mls @ 83.3 mls/hr IV .Q12H1M [facility] Last Admin: 04/18/18 04:29 Dose: 83.3 mls/hr Multivitamins/Vitamin C 10 ml/Chromium/Copper/Manganese/Zinc 3 ml/ Amino Acids 1,013 mls @ 42 mls/hr IV .Q24H [facility] Lidocaine HCl (Lidocaine 2% Viscous) 15 ml PO Q4 PRN PRN Reason: Sore Throat Last Admin: 04/07/18 18:25 Dose: 15 ml Ondansetron HCl (Zofran Inj) 4 mg IVP Q6 PRN PRN Reason: Nausea/Vomiting Last Admin: 04/14/18 09:33 Dose: 4 mg Oxycodone HCl (Oxycodone Immediate Release Tab) 5 mg PO Q6 PRN PRN Reason: Pain, moderate (4-7) Last Admin: 04/18/18 14:19 Dose: 5 mg Pantoprazole Sodium (Protonix Inj) 40 mg IVP DAILY [facility] Last Admin: 04/18/18 09:22 Dose: 40 mg Phenol/Menthol (Phenaseptic 1.4% Throat [place]) 1 spry MT Q2 PRN PRN Reason: Nausea/Vomiting Potassium Phos/Sodium Phos (Neutra-Phos) 1 pkt PO BID [facility] Last Admin: 04/18/18 09:21 Dose: 1 pkt Sucralfate (Carafate Oral Susp) 1 gm PO BID [facility] Last Admin: 04/18/18 09:20 Dose: 1 gm Ticagrelor (Brilinta) 90 mg PO BID [facility] Vancomycin HCl (Vancocin (Oral/Rectal Use)) 125 mg PO Q8 [facility]; Protocol Last Admin: 04/18/18 09:22 Dose: 125 mg - Labs Labs: 04/17/18 05:57 04/16/18 06:20 PT 13.7 Seconds (9.8-13.1) H 04/01/18 21:53 INR 1.2 04/01/18 21:53 APTT 32.8 Seconds (25.6-37.1) 04/01/18 21:53 - Constitutional Appears: Non-toxic, No Acute Distress, Chronically Ill - Head Exam Head Exam: NORMAL INSPECTION, NORMOCEPHALIC - Eye Exam Eye Exam: EOMI, Normal appearance Pupil Exam: NORMAL ACCOMODATION - ENT Exam ENT Exam: Mucous Membranes Moist, Normal External Ear Exam - Neck Exam Neck Exam: Full ROM. absent: Meningismus - Respiratory Exam Respiratory Exam: NORMAL BREATHING PATTERN. absent: Respiratory Distress - Cardiovascular Exam Cardiovascular Exam: REGULAR RHYTHM, +S1, +S2 - GI/Abdominal Exam GI & Abdominal Exam: Distended, Normal Bowel Sounds. absent: Tenderness - Extremities Exam Extremities Exam: absent: Calf Tenderness, Pedal Edema Additional comments: right AKA, left foot with dressing - Neurological Exam Neurological Exam: Alert, Awake, Oriented x3 Neuro motor strength exam: Left Upper Extremity: 5, Right Upper Extremity: 5, Left Lower Extremity: 5, Right Lower Extremity: 5 - Psychiatric Exam Psychiatric exam: Normal Affect, Normal Mood - Skin Skin Exam: Dry, Normal Color Assessment and Plan - Assessment and Plan (Free Text) Plan: Small Bowel Obstruction Ileum Perforation s/p Open Laparotomy with adhesiolysis and resection of area of perforated ileum - Pt tolerating Reg diet - + BM, no fever - Surgery following pt PVD - hx of Right AKA, with Chronic Left Foot Ulcer due to PVD - pt on Lipitor, off Brilinta due to + Hemoccult and drop in H/H, will restart when cleared by Surgery - Vascular and Podiatry on the case DM type II , very brittle with episodes of Hyperglycemia/Hypoglycemia - episodes of hypoglycemia - d/c Glipizide as pt has very poor PO intake and has diarrhea - accucheck - Pt now on PPN Anemia of Chronic Dis s/p PRBC transfusion hgb now 9.3 from 7.3 C Diff Colitis - cont PO Vanco - improving , WBC ct trending down , diarrhea better HTN pt on Coreg Abd Wound c/s : Klebsiella ESBL and VRE - reported today / - unclear what was cultured - pt clinically better today, WBC count trending down, afebrile - will defer to Surgery ( may just be colonization???)
[2018-04-18] MEDS: Dakin's Topical 0.25%-Half Strength (480 ml) TOP SCH ×2 (16:39→16:40)
--- NOTE | 2018-04-18 19:01 | PN ---
DATE: 04/18/2018 ENDO FOLLOWUP NOTE LOCATION: Room 653. SUBJECTIVE: This is a 62-year-old male with glucose values ranging from 64 to 77 and 105 mg/dL. His latest glucose levels are 120 mg/dL. So at this time, we will just continue once again the glipizide given as 2.5 mg b.i.d. as ordered. We will obtain serial chemistries and supplement accordingly as needed. We. will follow and advice accordingly. Gabi Scanlon MD
[2018-04-18] MEDS: Insulin Lispro (humaLOG) 100 Units/ml Inj SC SCH (22:20)
[2018-04-19] MEDS: Vancomycin 500 mg (Oral/Rectal USE) PO SCH ×3 (00:47→19:13)
[2018-04-19] MEDS: oxyCODONE 5 mg Immediate Release Tab PO PRN (03:55)
[2018-04-19 05:09] LABS: BASO # 0.1 K/uL (0.0-0.2); BASO % 1.2 % (0.0-2.0); EOS # 0.2 K/uL (0.0-0.7); EOS % 1.8 % (0.0-4.0); HEMOGLOBIN 9.5 g/dL (12.0-18.0); LYMPH # 2.3 K/uL (1.0-4.3); LYMPH % 25.8 % (20.0-40.0); MEAN CELL VOLUME 86.6 fl (80.0-94.0); MEAN CORPUSCULAR HEMOGLOBIN 28.5 pg (27.0-31.0); MEAN PLATELET VOLUME 9.7 fl (7.2-11.7); MONO # 0.8 K/uL (0.0-0.8); MONO % 8.5 % (0.0-10.0); NEUT # 5.6 K/uL (1.8-7.0); NEUT % 62.7 % (50.0-75.0); RBC 3.33 Mil/uL (4.40-5.90); RED CELL DISTRIBUTION WIDTH 15.8 % (11.5-14.5); WHITE BLOOD COUNT 8.9 K/uL (4.8-10.8)
[2018-04-19 05:48] LABS: BLOOD UREA NITROGEN 10 mg/dl (9-20); CALCIUM 7.9 mg/dL (8.4-10.2); GFR NON-AFRICAN AMERICAN > 60
--- NOTE | 2018-04-19 07:18 | CP.PCM.PN ---
Subjective - Date & Time of Evaluation Date of Evaluation: 04/19/18 Time of Evaluation: 11:44 - Subjective Subjective: General Surgery Note by Dr Palomino Patient seen and examined at bedside. No acute event overnight. He denies pain this morning. Patient admits to tolerating diabetic diet, passing flatus and having soft BM. Denies fever/chills or nausea/vomiting. Incision with packing no gross drainage. Objective - Vital Signs/Intake and Output Vital Signs (last 24 hours): Temp Pulse Resp BP Pulse Ox 97.6 F 79 18 149/67 100 04/19/18 00:11 04/19/18 00:11 04/19/18 00:11 04/19/18 00:11 04/19/18 00:11 Intake and Output: 04/19/18 04/19/18 06:59 18:59 Intake Total 1754 Output Total 500 Balance 1254 - Medications Medications: Current Medications Acetaminophen (Tylenol 325mg/10.15ml Ud) 325 mg PO Q6 PRN PRN Reason: Pain, Mild (1-3) Last Admin: 04/14/18 17:42 Dose: 325 mg Acetaminophen (Tylenol 325mg Tab) 650 mg PO Q6 PRN PRN Reason: Pain, severe (8-10) Last Admin: 04/16/18 07:48 Dose: 650 mg Albuterol/Ipratropium (Duoneb 3 Mg/0.5 Mg (3 Ml) Ud) 3 ml INH RQ4 PRN PRN Reason: Shortness of Breath Atorvastatin Calcium (Lipitor) 40 mg PO DAILY [facility] Last Admin: 04/18/18 09:21 Dose: 40 mg Carvedilol (Coreg) 25 mg PO Q12 [facility] Last Admin: 04/18/18 21:27 Dose: 25 mg Clotrimazole (Mycelex Sandor) 10 mg MT 5XD [facility] Last Admin: 04/19/18 05:09 Dose: Not Given Dextrose (Dextrose 50% Inj) 0 ml IV STAT PRN; Protocol PRN Reason: Hypoglycemia Protocol Last Admin: 04/17/18 11:08 Dose: 25 ml Dextrose (Glutose 15) 0 gm PO ONCE PRN; Protocol PRN Reason: Hypoglycemia Protocol Enoxaparin Sodium (Lovenox) 40 mg SC DAILY [facility]; Protocol Last Admin: 04/16/18 08:46 Dose: 40 mg Gabapentin (Neurontin) 300 mg PO HS [facility] Last Admin: 04/18/18 21:29 Dose: 300 mg Glipizide (Glucotrol) 2.5 mg PO ACB [facility] Glucagon (Glucagen Diagnostic Kit) 0 mg IM STAT PRN; Protocol PRN Reason: Hypoglycemia Protocol Multivitamins/Vitamin C 10 ml/Chromium/Copper/Manganese/Zinc 3 ml/ Amino Acids 1,013 mls @ 42 mls/hr IV .Q24H [facility] Last Admin: 04/18/18 18:07 Dose: 42 mls/hr Insulin Human Lispro (Humalog) 0 units SC ACHS [facility]; Protocol Last Admin: 04/18/18 22:20 Dose: Not Given Lidocaine HCl (Lidocaine 2% Viscous) 15 ml PO Q4 PRN PRN Reason: Sore Throat Last Admin: 04/07/18 18:25 Dose: 15 ml Ondansetron HCl (Zofran Inj) 4 mg IVP Q6 PRN PRN Reason: Nausea/Vomiting Last Admin: 04/14/18 09:33 Dose: 4 mg Oxycodone HCl (Oxycodone Immediate Release Tab) 5 mg PO Q6 PRN PRN Reason: Pain, moderate (4-7) Last Admin: 04/19/18 03:55 Dose: 5 mg Pantoprazole Sodium (Protonix Inj) 40 mg IVP DAILY [facility] Last Admin: 04/18/18 09:22 Dose: 40 mg Phenol/Menthol (Phenaseptic 1.4% Throat [place]) 1 spry MT Q2 PRN PRN Reason: Nausea/Vomiting Potassium Phos/Sodium Phos (Neutra-Phos) 1 pkt PO BID [facility] Last Admin: 04/18/18 16:42 Dose: 1 pkt Sucralfate (Carafate Oral Susp) 1 gm PO BID [facility] Last Admin: 04/18/18 16:38 Dose: 1 gm Ticagrelor (Brilinta) 90 mg PO BID [facility] Vancomycin HCl (Vancocin (Oral/Rectal Use)) 125 mg PO Q8 [facility]; Protocol Last Admin: 04/19/18 00:47 Dose: 125 mg - Labs Labs: 04/19/18 04:25 04/19/18 04:25 PT 13.7 Seconds (9.8-13.1) H 04/01/18 21:53 INR 1.2 04/01/18 21:53 APTT 32.8 Seconds (25.6-37.1) 04/01/18 21:53 - Constitutional Appears: No Acute Distress - Head Exam Head Exam: ATRAUMATIC, NORMOCEPHALIC - Eye Exam Eye Exam: EOMI, Normal appearance - ENT Exam ENT Exam: Mucous Membranes Moist - Respiratory Exam Respiratory Exam: NORMAL BREATHING PATTERN - Cardiovascular Exam Cardiovascular Exam: REGULAR RHYTHM - GI/Abdominal Exam GI & Abdominal Exam: Soft, Normal Bowel Sounds. absent: Firm, Guarding, Rigid, Tenderness Additional comments: incision with packing at inferior pole, no gross drainage or erythema - Extremities Exam Extremities Exam: Normal Capillary Refill Additional comments: s/p L AKA - Back Exam Back Exam: absent: CVA tenderness (L), CVA tenderness (R) - Neurological Exam Neurological Exam: Alert, Awake, Oriented x3 Assessment and Plan - Assessment and Plan (Free Text) Assessment: 62M PMH of HTN, peripheral vascular disease, uncontrolled diabetes mellitus (not on home insulin as pt not agreeable), right AKA, admitted for bowel obstruction; s/p laparotomy lysis of adhesions and resection of ileal perforation with primary anastamosis POD#15. Plan: Small Bowel Obstruction - Resolved - anti-emetic and pain control PRN - monitor daily electrolytes, replete as necessary - Reglan - encourage OOB into chair - aggressive physical therapy Leukocytosis decreasing - c.diff antigen positive - Continue PO vanc Cough - duonebs PRN; cough resolved - Aggressive Incentive Spirometry PVD, L Foot ulcer - Chronic - c/s Podiatry; all recs appreciated - daily dressing changes w/ Dakins Cachexia -ADA -will DC PPN Prophylaxis - Lovenox, and Protonix Dispo: Plan for DC to [facility] Discussed with Dr. Maribel Fernando PGY2
[2018-04-19] MEDS: Insulin Lispro (humaLOG) 100 Units/ml Inj SC SCH ×5 (08:45→22:56)
[2018-04-19] MEDS: Sucralfate 1 gm/10 ml Oral Susp UD PO SCH ×2 (09:43→18:08)
--- NOTE | 2018-04-19 09:44 | CP.PCM.PN ---
Subjective - Date & Time of Evaluation Date of Evaluation: 04/19/18 Time of Evaluation: 09:38 - Subjective Subjective: Podiatry progress note: Dr. Pham 62 y/o M patient seen and evaluated at the bedside for left foot non healing ulcer, gangrenous changes at the left 2nd and 3rd digits and PVD, patient was resting comfortably and in NAD. Patient states that he is having less pain to his foot today. He fletcher nausea/vomiting/fever. He admits that his diarrhea is improving. Patient dressing clean/dry/intact, no strike through. Objective - Vital Signs/Intake and Output Vital Signs (last 24 hours): Temp Pulse Resp BP Pulse Ox 97.9 F 88 20 148/72 98 04/19/18 08:20 04/19/18 08:20 04/19/18 08:20 04/19/18 08:20 04/19/18 08:20 Intake and Output: 04/19/18 04/19/18 06:59 18:59 Intake Total 1754 Output Total 500 Balance 1254 - Medications Medications: Current Medications Acetaminophen (Tylenol 325mg/10.15ml Ud) 325 mg PO Q6 PRN PRN Reason: Pain, Mild (1-3) Last Admin: 04/14/18 17:42 Dose: 325 mg Acetaminophen (Tylenol 325mg Tab) 650 mg PO Q6 PRN PRN Reason: Pain, severe (8-10) Last Admin: 04/16/18 07:48 Dose: 650 mg Albuterol/Ipratropium (Duoneb 3 Mg/0.5 Mg (3 Ml) Ud) 3 ml INH RQ4 PRN PRN Reason: Shortness of Breath Atorvastatin Calcium (Lipitor) 40 mg PO DAILY [facility] Last Admin: 04/18/18 09:21 Dose: 40 mg Carvedilol (Coreg) 25 mg PO Q12 [facility] Last Admin: 04/18/18 21:27 Dose: 25 mg Clotrimazole (Mycelex Sandor) 10 mg MT 5XD [facility] Last Admin: 04/19/18 05:09 Dose: Not Given Dextrose (Dextrose 50% Inj) 0 ml IV STAT PRN; Protocol PRN Reason: Hypoglycemia Protocol Last Admin: 04/17/18 11:08 Dose: 25 ml Dextrose (Glutose 15) 0 gm PO ONCE PRN; Protocol PRN Reason: Hypoglycemia Protocol Enoxaparin Sodium (Lovenox) 40 mg SC DAILY [facility]; Protocol Last Admin: 04/16/18 08:46 Dose: 40 mg Gabapentin (Neurontin) 300 mg PO HS [facility] Last Admin: 04/18/18 21:29 Dose: 300 mg Glipizide (Glucotrol) 2.5 mg PO ACB [facility] Glucagon (Glucagen Diagnostic Kit) 0 mg IM STAT PRN; Protocol PRN Reason: Hypoglycemia Protocol Multivitamins/Vitamin C 10 ml/Chromium/Copper/Manganese/Zinc 3 ml/ Amino Acids 1,013 mls @ 42 mls/hr IV .Q24H [facility] Last Admin: 04/18/18 18:07 Dose: 42 mls/hr Insulin Human Lispro (Humalog) 0 units SC ACHS [facility]; Protocol Last Admin: 04/18/18 22:20 Dose: Not Given Lidocaine HCl (Lidocaine 2% Viscous) 15 ml PO Q4 PRN PRN Reason: Sore Throat Last Admin: 04/07/18 18:25 Dose: 15 ml Ondansetron HCl (Zofran Inj) 4 mg IVP Q6 PRN PRN Reason: Nausea/Vomiting Last Admin: 04/14/18 09:33 Dose: 4 mg Oxycodone HCl (Oxycodone Immediate Release Tab) 5 mg PO Q6 PRN PRN Reason: Pain, moderate (4-7) Last Admin: 04/19/18 03:55 Dose: 5 mg Pantoprazole Sodium (Protonix Inj) 40 mg IVP DAILY [facility] Last Admin: 04/18/18 09:22 Dose: 40 mg Phenol/Menthol (Phenaseptic 1.4% Throat [place]) 1 spry MT Q2 PRN PRN Reason: Nausea/Vomiting Potassium Phos/Sodium Phos (Neutra-Phos) 1 pkt PO BID [facility] Last Admin: 04/18/18 16:42 Dose: 1 pkt Sucralfate (Carafate Oral Susp) 1 gm PO BID [facility] Last Admin: 04/18/18 16:38 Dose: 1 gm Ticagrelor (Brilinta) 90 mg PO BID [facility] Vancomycin HCl (Vancocin (Oral/Rectal Use)) 125 mg PO Q8 [facility]; Protocol Last Admin: 04/19/18 00:47 Dose: 125 mg - Labs Labs: 04/19/18 04:25 04/19/18 04:25 PT 13.7 Seconds (9.8-13.1) H 04/01/18 21:53 INR 1.2 04/01/18 21:53 APTT 32.8 Seconds (25.6-37.1) 04/01/18 21:53 - Head Exam Head Exam: ATRAUMATIC - Extremities Exam Additional comments: LLE focused exam: Vascular: DP non-palpable, PT non-palpable, Temp gradient warm to cool, no evidence of edema at this time Neuro: gross sensation intact, protective sensation diminished. Derm: arterial non-healing ulcer noted to the left first ray with 30% necrotic and 70% granular base, no malodor noted, minimal active drainage, no fluctuance, no erythema, no tunneling or tracking, no probe to bone, gangrenous changes noted to the left 2nd digit and the tip of the 3rd digits, dry gangrene, no signs of infection. MSK: Right AKA, pain to the left ulcer site with dressing changes, Muscle atrophy appreciated. - Neurological Exam Neurological Exam: Alert, Awake, Oriented x3 Assessment and Plan - Assessment and Plan (Free Text) Assessment: 62 y/o M patient seen and evaluated at the bedside for left foot non healing ulcer, gangrenous changes at the left 2nd and 3rd digits and PVD. Plan: Patient seen and evaluated Discussed in detail with Dr. Pham Chart, labs and vitals reviewed: Afebrile, No leukocytosis Wound cleansed with sterile saline and dressed with dakins and DSD Wound Culture obtained; prelim no growth MRI ordered of the left foot to r/o osteomyelitis; Failure fat separation precludes adequate evaluation of the Marrow. Accordingly, is difficult to evaluate for osteomyelitis. Prior great toe and distal segment 1st metatarsal amputation are reiterated. Myositis is suggested at the forefoot and midfoot musculature. Consider follow-up nuclear three-phase bone scan or tagged white blood cell study to evaluate for potential osteomyelitis. X-ray left foot - irregular navicular, normal post amputation site CT- bulky calcific plaque of the distal common femoral artery extending into the prox SFA and also the profunda. Abnormal course of anterior tibial artery which is otherwise patent. Await further input from surgery and vascular teams regarding whether any podiatric intervention can be performed for debridement. Podiatry will continue to follow up the patient while in house.
[2018-04-19] MEDS: Potassium & Sodium Phosphate PO SCH ×2 (09:46→18:12)
--- NOTE | 2018-04-19 10:29 | CP.PCM.PN ---
Subjective - Date & Time of Evaluation Date of Evaluation: 04/19/18 Time of Evaluation: 10:26 - Subjective Subjective: Progress note for Dr. David, Patient seen this morning, resting comfortably in bed. Patient denies abdominal discomfort, pain at previous abdominal incision. Tolerating regular diet well at this time. No BM today, admits to loose BM yesterday. Denies nausea/vomiting/fever/shortness of breath chest pain. Objective - Vital Signs/Intake and Output Vital Signs (last 24 hours): Temp Pulse Resp BP Pulse Ox 97.9 F 88 20 148/72 98 04/19/18 08:20 04/19/18 09:47 04/19/18 08:20 04/19/18 09:47 04/19/18 08:20 Intake and Output: 04/19/18 04/19/18 06:59 18:59 Intake Total 1754 Output Total 500 Balance 1254 - Medications Medications: Current Medications Acetaminophen (Tylenol 325mg/10.15ml Ud) 325 mg PO Q6 PRN PRN Reason: Pain, Mild (1-3) Last Admin: 04/14/18 17:42 Dose: 325 mg Acetaminophen (Tylenol 325mg Tab) 650 mg PO Q6 PRN PRN Reason: Pain, severe (8-10) Last Admin: 04/16/18 07:48 Dose: 650 mg Albuterol/Ipratropium (Duoneb 3 Mg/0.5 Mg (3 Ml) Ud) 3 ml INH RQ4 PRN PRN Reason: Shortness of Breath Atorvastatin Calcium (Lipitor) 40 mg PO DAILY [facility] Last Admin: 04/19/18 09:46 Dose: 40 mg Carvedilol (Coreg) 25 mg PO Q12 [facility] Last Admin: 04/19/18 09:47 Dose: 25 mg Clotrimazole (Mycelex Sandor) 10 mg MT 5XD [facility] Last Admin: 04/19/18 09:54 Dose: Not Given Dextrose (Dextrose 50% Inj) 0 ml IV STAT PRN; Protocol PRN Reason: Hypoglycemia Protocol Last Admin: 04/17/18 11:08 Dose: 25 ml Dextrose (Glutose 15) 0 gm PO ONCE PRN; Protocol PRN Reason: Hypoglycemia Protocol Enoxaparin Sodium (Lovenox) 40 mg SC DAILY [facility]; Protocol Last Admin: 04/16/18 08:46 Dose: 40 mg Gabapentin (Neurontin) 300 mg PO HS [facility] Last Admin: 04/18/18 21:29 Dose: 300 mg Glipizide (Glucotrol) 2.5 mg PO ACB [facility] Last Admin: 04/19/18 08:47 Dose: 2.5 mg Glucagon (Glucagen Diagnostic Kit) 0 mg IM STAT PRN; Protocol PRN Reason: Hypoglycemia Protocol Multivitamins/Vitamin C 10 ml/Chromium/Copper/Manganese/Zinc 3 ml/ Amino Acids 1,013 mls @ 42 mls/hr IV .Q24H [facility] Last Admin: 04/18/18 18:07 Dose: 42 mls/hr Insulin Human Lispro (Humalog) 0 units SC ACHS [facility]; Protocol Last Admin: 04/19/18 08:45 Dose: 3 units Lidocaine HCl (Lidocaine 2% Viscous) 15 ml PO Q4 PRN PRN Reason: Sore Throat Last Admin: 04/07/18 18:25 Dose: 15 ml Ondansetron HCl (Zofran Inj) 4 mg IVP Q6 PRN PRN Reason: Nausea/Vomiting Last Admin: 04/14/18 09:33 Dose: 4 mg Oxycodone HCl (Oxycodone Immediate Release Tab) 5 mg PO Q6 PRN PRN Reason: Pain, moderate (4-7) Last Admin: 04/19/18 03:55 Dose: 5 mg Pantoprazole Sodium (Protonix Inj) 40 mg IVP DAILY [facility] Last Admin: 04/19/18 09:44 Dose: 40 mg Phenol/Menthol (Phenaseptic 1.4% Throat [place]) 1 spry MT Q2 PRN PRN Reason: Nausea/Vomiting Potassium Phos/Sodium Phos (Neutra-Phos) 1 pkt PO BID [facility] Last Admin: 04/19/18 09:46 Dose: 1 pkt Sucralfate (Carafate Oral Susp) 1 gm PO BID [facility] Last Admin: 04/19/18 09:43 Dose: 1 gm Ticagrelor (Brilinta) 90 mg PO BID [facility] Vancomycin HCl (Vancocin (Oral/Rectal Use)) 125 mg PO Q8 [facility]; Protocol Last Admin: 04/19/18 00:47 Dose: 125 mg - Labs Labs: 04/19/18 04:25 04/19/18 04:25 PT 13.7 Seconds (9.8-13.1) H 04/01/18 21:53 INR 1.2 04/01/18 21:53 APTT 32.8 Seconds (25.6-37.1) 04/01/18 21:53 - Constitutional Appears: Non-toxic, No Acute Distress, Chronically Ill - Head Exam Head Exam: NORMAL INSPECTION, NORMOCEPHALIC - Eye Exam Eye Exam: EOMI, Normal appearance Pupil Exam: NORMAL ACCOMODATION - ENT Exam ENT Exam: Mucous Membranes Moist - Neck Exam Neck Exam: Full ROM. absent: Meningismus - Respiratory Exam Respiratory Exam: NORMAL BREATHING PATTERN - Cardiovascular Exam Cardiovascular Exam: REGULAR RHYTHM, +S1 - GI/Abdominal Exam GI & Abdominal Exam: Distended - Extremities Exam Extremities Exam: absent: Calf Tenderness, Pedal Edema Additional comments: Left foot dressing d/c/i - Neurological Exam Neurological Exam: Alert, Awake, Oriented x3 - Psychiatric Exam Psychiatric exam: Normal Affect, Normal Mood Assessment and Plan - Assessment and Plan (Free Text) Assessment: 62 year old male patient, with PMHx of HTN, PVD, DMII, admitted for partial SBO Plan: 1. Small Bowel Obstruction; Ileum Perforation s/p Open Laparotomy with adhesiolysis and resection of area of perforated ileum - Afebrile - General Surgery as primary team, Dr. López. - Regular diet - On IV Zosyn, Zofran PRN, Pantoprazole daily - C/w pain management 2. C. Diff - Acute - C Diff toxin + - C/w Vancomycin PO 3. Leukocytosis - Acute - WBC 8.9 - VSS - F/u chest/abd CT - Continue with IV Zosyn. - Blood Cx no growth after 4 days. - Pro-calcitonin .52 4. DMII, uncontrolled with episodes of hypoglycemia - Chronic - Insulin sliding scale - ACHS; accuscheck - Endocrinology consulted, Dr Scanlon, reccs appreciated 5. Chronic normocytic anemia - acute - Hgb 9.5 s/p PRBC transfusion 6. Cachexia - Advanced to regular diet - TPN d/c 7. L foot ulcer secondary to PVD, R AKA - Chronic - Podiatry consulted, Dr. Pham, reccs appreciated - Left LE MRI ordered, r/o OM 8. HTN - Chronic - C/w Coreg 9. HLD - Chronic - C/w Lipitor 10. Abd Wound c/s : Klebsiella ESBL and VRE - reported today / - unclear what was cultured - pt clinically better today, WBC count trending down, afebrile - Culture growing VRE/ESBL; recommend ID consult. 11. DVT prophylaxis - Lovenox 40 mg SC daily
[2018-04-19] MEDS: Piperacillin/Tazobact 3.375 GM in Sodium Chloride 0.9% 100 ML IVPB SCH ×2 (18:00→21:26)
[2018-04-20] MEDS: Vancomycin 500 mg (Oral/Rectal USE) PO SCH ×3 (01:20→16:21)
[2018-04-20] MEDS: Piperacillin/Tazobact 3.375 GM in Sodium Chloride 0.9% 100 ML IVPB SCH ×4 (03:31→22:03)
[2018-04-20 06:36] LABS: BASO # 0.1 K/uL (0.0-0.2); BASO % 1.4 % (0.0-2.0); EOS # 0.2 K/uL (0.0-0.7); EOS % 1.9 % (0.0-4.0); HEMOGLOBIN 11.1 g/dL (12.0-18.0); LYMPH # 2.4 K/uL (1.0-4.3); LYMPH % 29.2 % (20.0-40.0); MEAN CELL VOLUME 86.7 fl (80.0-94.0); MEAN CORPUSCULAR HEMOGLOBIN 28.2 pg (27.0-31.0); MEAN CORPUSCULAR HGB CONC 32.6 g/dL (33.0-37.0); MEAN PLATELET VOLUME 9.4 fl (7.2-11.7); MONO # 0.8 K/uL (0.0-0.8); MONO % 10.4 % (0.0-10.0); NEUT # 4.6 K/uL (1.8-7.0); NEUT % 57.1 % (50.0-75.0); NRBC % 0.1 % (0.0-0.0); RBC 3.95 Mil/uL (4.40-5.90); RED CELL DISTRIBUTION WIDTH 15.9 % (11.5-14.5); WHITE BLOOD COUNT 8.1 K/uL (4.8-10.8)
[2018-04-20 06:59] LABS: ALB/GLOB RATIO 0.8 (1.0-2.1); ALBUMIN 2.6 g/dL (3.5-5.0); ALT/SGPT 27 U/L (21-72); AST/SGOT 27 U/L (17-59); BLOOD UREA NITROGEN 9 mg/dl (9-20); CALCIUM 8.3 mg/dL (8.4-10.2); GFR NON-AFRICAN AMERICAN > 60
--- NOTE | 2018-04-20 07:18 | CP.PCM.PN ---
Subjective - Date & Time of Evaluation Date of Evaluation: 04/20/18 Time of Evaluation: 07:16 - Subjective Subjective: General Surgery Note: Dr Palomino 62 y/o male patient seen and examined at bedside. No acute event overnight. He denies pain this morning. Patient admits to tolerating diabetic diet, passing flatus and having multiple soft BM. Denies fever/chills or nausea/vomiting. Incision with packing no gross drainage. Objective - Vital Signs/Intake and Output Vital Signs (last 24 hours): Temp Pulse Resp BP Pulse Ox 97.9 F 90 20 134/82 100 04/19/18 23:44 04/19/18 23:44 04/19/18 23:44 04/19/18 23:44 04/19/18 23:44 Intake and Output: 04/20/18 04/20/18 06:59 18:59 Intake Total 320 Output Total 270 Balance 50 - Medications Medications: Current Medications Acetaminophen (Tylenol 325mg/10.15ml Ud) 325 mg PO Q6 PRN PRN Reason: Pain, Mild (1-3) Last Admin: 04/14/18 17:42 Dose: 325 mg Acetaminophen (Tylenol 325mg Tab) 650 mg PO Q6 PRN PRN Reason: Pain, severe (8-10) Last Admin: 04/19/18 21:25 Dose: 650 mg Albuterol/Ipratropium (Duoneb 3 Mg/0.5 Mg (3 Ml) Ud) 3 ml INH RQ4 PRN PRN Reason: Shortness of Breath Atorvastatin Calcium (Lipitor) 40 mg PO DAILY [facility] Last Admin: 04/19/18 09:46 Dose: 40 mg Carvedilol (Coreg) 25 mg PO Q12 [facility] Last Admin: 04/19/18 21:31 Dose: 25 mg Clotrimazole (Mycelex Sandor) 10 mg MT 5XD [facility] Last Admin: 04/20/18 05:19 Dose: 10 mg Dextrose (Dextrose 50% Inj) 0 ml IV STAT PRN; Protocol PRN Reason: Hypoglycemia Protocol Last Admin: 04/17/18 11:08 Dose: 25 ml Dextrose (Glutose 15) 0 gm PO ONCE PRN; Protocol PRN Reason: Hypoglycemia Protocol Enoxaparin Sodium (Lovenox) 40 mg SC DAILY [facility]; Protocol Last Admin: 04/16/18 08:46 Dose: 40 mg Gabapentin (Neurontin) 300 mg PO HS [facility] Last Admin: 04/19/18 21:28 Dose: 300 mg Glipizide (Glucotrol) 2.5 mg PO ACBD [facility] Last Admin: 04/19/18 17:07 Dose: 2.5 mg Glucagon (Glucagen Diagnostic Kit) 0 mg IM STAT PRN; Protocol PRN Reason: Hypoglycemia Protocol Piperacillin Sod/Tazobactam (Sod 3.375 gm/ Sodium Chloride) 100 mls @ 100 mls/hr IVPB Q6 [facility]; Protocol Last Admin: 04/20/18 03:31 Dose: 100 mls/hr Insulin Human Lispro (Humalog) 0 units SC ACHS [facility]; Protocol Last Admin: 04/19/18 22:56 Dose: Not Given Lidocaine HCl (Lidocaine 2% Viscous) 15 ml PO Q4 PRN PRN Reason: Sore Throat Last Admin: 04/07/18 18:25 Dose: 15 ml Ondansetron HCl (Zofran Inj) 4 mg IVP Q6 PRN PRN Reason: Nausea/Vomiting Last Admin: 04/14/18 09:33 Dose: 4 mg Oxycodone HCl (Oxycodone Immediate Release Tab) 5 mg PO Q6 PRN PRN Reason: Pain, moderate (4-7) Last Admin: 04/19/18 03:55 Dose: 5 mg Pantoprazole Sodium (Protonix Inj) 40 mg IVP DAILY [facility] Last Admin: 04/19/18 09:44 Dose: 40 mg Phenol/Menthol (Phenaseptic 1.4% Throat [place]) 1 spry MT Q2 PRN PRN Reason: Nausea/Vomiting Potassium Phos/Sodium Phos (Neutra-Phos) 1 pkt PO BID [facility] Last Admin: 04/19/18 18:12 Dose: Not Given Sucralfate (Carafate Oral Susp) 1 gm PO BID [facility] Last Admin: 04/19/18 18:08 Dose: 1 gm Ticagrelor (Brilinta) 90 mg PO BID [facility] Vancomycin HCl (Vancocin (Oral/Rectal Use)) 125 mg PO Q8 [facility]; Protocol Last Admin: 04/20/18 01:20 Dose: 125 mg - Labs Labs: 04/20/18 06:25 04/20/18 06:25 PT 13.7 Seconds (9.8-13.1) H 04/01/18 21:53 INR 1.2 04/01/18 21:53 APTT 32.8 Seconds (25.6-37.1) 04/01/18 21:53 - Constitutional Appears: Well, Non-toxic, No Acute Distress - Head Exam Head Exam: ATRAUMATIC, NORMOCEPHALIC - Eye Exam Eye Exam: Normal appearance - ENT Exam ENT Exam: Mucous Membranes Moist - Respiratory Exam Respiratory Exam: NORMAL BREATHING PATTERN. absent: Accessory Muscle Use, Respiratory Distress - Cardiovascular Exam Cardiovascular Exam: REGULAR RHYTHM. absent: Tachycardia - GI/Abdominal Exam GI & Abdominal Exam: Soft, Normal Bowel Sounds. absent: Firm, Guarding, Rigid Additional comments: incision with packing at inferior pole, no drainage or erythema - Extremities Exam Extremities Exam: Normal Capillary Refill Additional comments: s/p L AKA Assessment and Plan - Assessment and Plan (Free Text) Assessment: 62 y/o male PMH of HTN, peripheral vascular disease, uncontrolled diabetes mellitus (not on home insulin as pt not agreeable), right AKA, admitted for bowel obstruction; s/p laparotomy lysis of adhesions and resection of ileal perforation with primary anastamosis POD#16. Plan: Small Bowel Obstruction - Resolved - anti-emetic and pain control PRN - monitor daily electrolytes, replete as necessary - Reglan - encourage OOB into chair - aggressive physical therapy Leukocytosis decreasing - c.diff antigen positive - Continue PO vanc Cough - duonebs PRN; cough resolved - Aggressive Incentive Spirometry PVD, L Foot ulcer - Chronic - c/s Podiatry; all recs appreciated - daily dressing changes w/ Dakins - L leg revascularization scheduled for 04/21/18- with Dr. Hightower Cachexia -ADA -will DC PPN Prophylaxis - Lovenox, and Protonix Dispo: Plan for DC to [facility] Discussed with Dr. Maribel Morrell, PGY1
--- NOTE | 2018-04-20 08:22 | PN ---
DATE: 04/19/2018 ENDOCRINOLOGY FOLLOWUP NOTE LOCATION: Room 653. SUBJECTIVE: This is a 62-year-old male with recent uncontrolled type 2 diabetes presenting here with small bowel obstruction and underwent exploratory laparotomy and is now being followed closely for a recent glycemic fluctuations as noted thereof. His glucose levels overnight have been elevated ranging from 239 to 283 mg/dL, was 299 at bedtime last night. LABORATORY DATA: His chemistries showed a BUN of 10, sodium 133, potassium 3.9, chloride 98, CO2 of 24, glucose 260 and creatinine of 0.6. So at this time, we will resume his glipizide given at a very low dose of 2.5 mg b.i.d. before meals to start today as ordered. We will titrate incremental as indicated to optimize metabolic control. We will also continue a low dose correction scale using Humalog insulin as indicated. Will obtain serum chemistries and supplement accordingly as needed. We will follow. Gabi Scanlon MD
--- NOTE | 2018-04-20 08:33 | CP.PCM.DIS ---
Provider - Provider Date of Admission: 04/02/18 00:25 Attending physician: Devante López MD Primary care physician: [facility] Consults: 04/02/18 01:00 Surgical [General Surgery Consult] Stat Comment: Consulting Provider: Devante López Consulting Physician: Devante López Reason for Consult: SBO 04/02/18 05:36 Social Work Referral Routine Comment: lives alone Physician Instructions: Reason For Exam: lives alone 04/02/18 12:14 Psychiatry Consult Routine Comment: Consulting Provider: Bina Davila Consulting Physician: Bina Davila Reason for Consult: Psych evaluation r/o depression 04/02/18 12:37 Podiatry Consult Routine Comment: Consulting Provider: Dandre Pham Consulting Physician: Dandre Pham Reason for Consult: Foot ulceration 04/04/18 11:44 Diabetic Education Referral Routine Comment: Physician Instructions: Reason For Exam: HGA1C 15.4, refusing insulin due to fear of needle 04/06/18 15:08 Vascular Surgery Routine Comment: Consulting Provider: Jose Hightower Physician Instructions: Reason For Exam: left foot non-palpable pulses 04/07/18 16:38 Hospitalist Consult Routine Comment: Consulting Provider: Gema Patel Consulting Physician: Gema Patel Reason for Consult: For medical issues 04/08/18 08:11 Endocrinology Consult Routine Comment: Consulting Provider: Gabi Scanlon Consulting Physician: Gabi Scanlon Reason for Consult: Uncontrolled Diabetes while on medication Time Spent in preparation of Discharge (in minutes): 30 Hospital Course - Lab Results Lab Results: Micro Results 04/15/18 06:20 Blood-Thru Central Line Blood Culture - Final NO GROWTH AFTER 5 DAYS 04/15/18 06:20 Blood-Thru Central Line Gram Stain - Final TEST NOT PERFORMED 04/15/18 06:35 Blood-Thru Central Line Blood Culture - Final NO GROWTH AFTER 5 DAYS 04/15/18 06:35 Blood-Thru Central Line Gram Stain - Final TEST NOT PERFORMED 04/16/18 16:40 Foot - Left Gram Stain - Final 04/16/18 16:40 Foot - Left Wound Culture - Final No growth. 04/15/18 16:00 Catheter Tip Catheter Tip Culture - Final No growth. 04/15/18 16:00 Catheter Tip Catheter Tip Culture - Final No growth. 04/15/18 16:00 Abdomen Gram Stain - Final 04/15/18 16:00 Abdomen Wound Culture - Final Klebsiella Pneumoniae Ssp Pneu Vancomycin Resistant E.faecium 04/15/18 22:30 Stool Stool Culture - Final NO SALMONELLA, SHIGELLA OR CAMPYLOBACTER ISOLATED. 04/16/18 09:50 Sputum Gram Stain - Final 04/16/18 09:50 Sputum Sputum Culture - Final 04/16/18 08:45 Urine,Clean Catch Urine Culture - Final No Growth (<1,000 CFU/ML) 04/10/18 10:20 Blood-Venous Blood Culture - Final NO GROWTH AFTER 5 DAYS 04/10/18 10:20 Blood-Venous Gram Stain - Final TEST NOT PERFORMED 04/10/18 10:20 Blood-Venous Blood Culture - Final NO GROWTH AFTER 5 DAYS 04/10/18 10:20 Blood-Venous Gram Stain - Final TEST NOT PERFORMED Most Recent Lab Values WBC 8.1 K/uL (4.8-10.8) 04/20/18 06:25 RBC 3.95 Mil/uL (4.40-5.90) L 04/20/18 06:25 Hgb 11.1 g/dL (12.0-18.0) L 04/20/18 06:25 Hct 34.2 % (35.0-51.0) L 04/20/18 06:25 MCV 86.7 fl (80.0-94.0) 04/20/18 06:25 MCH 28.2 pg (27.0-31.0) 04/20/18 06:25 MCHC 32.6 g/dL (33.0-37.0) L 04/20/18 06:25 RDW 15.9 % (11.5-14.5) H 04/20/18 06:25 Plt Count 436 K/uL (130-400) H 04/20/18 06:25 MPV 9.4 fl (7.2-11.7) 04/20/18 06:25 Neut % (Auto) 57.1 % (50.0-75.0) 04/20/18 06:25 Lymph % (Auto) 29.2 % (20.0-40.0) 04/20/18 06:25 [place] % (Auto) 10.4 % (0.0-10.0) H 04/20/18 06:25 Eos % (Auto) 1.9 % (0.0-4.0) 04/20/18 06:25 Baso % (Auto) 1.4 % (0.0-2.0) 04/20/18 06:25 Neut # (Auto) 4.6 K/uL (1.8-7.0) 04/20/18 06:25 Lymph # (Auto) 2.4 K/uL (1.0-4.3) 04/20/18 06:25 [place] # (Auto) 0.8 K/uL (0.0-0.8) 04/20/18 06:25 Eos # (Auto) 0.2 K/uL (0.0-0.7) 04/20/18 06:25 Baso # (Auto) 0.1 K/uL (0.0-0.2) 04/20/18 06:25 Neutrophils % (Manual) 81 % (42-75) H 04/15/18 06:20 Band Neutrophils % 3 % (0-2) H 04/15/18 06:20 Lymphocytes % (Manual) 8 % (20-50) L 04/15/18 06:20 Monocytes % (Manual) 6 % (0-10) 04/15/18 06:20 Eosinophils % (Manual) 2 % (0-7) 04/15/18 06:20 Toxic Granulation Present 04/15/18 06:20 Platelet Estimate Slightly increased (NORMAL) H 04/15/18 06:20 Large Platelets Present 04/15/18 06:20 Hypochromasia (manual) Slight 04/15/18 06:20 Poikilocytosis (manual Slight 04/01/18 21:53 Anisocytosis (manual) Slight 04/15/18 06:20 Microcytosis (manual) Slight 04/01/18 21:53 PT 13.7 Seconds (9.8-13.1) H 04/01/18 21:53 INR 1.2 04/01/18 21:53 APTT 32.8 Seconds (25.6-37.1) 04/01/18 21:53 pO2 24 mm/Hg (30-55) L 04/02/18 03:11 VBG pH 7.37 (7.32-7.43) 04/02/18 03:11 VBG pCO2 58 mmHg (40-60) 04/02/18 03:11 VBG HCO3 28.4 mmol/L 04/02/18 03:11 VBG Total CO2 35.3 mmol/L (22-28) H 04/02/18 03:11 VBG O2 Sat (Calc) 50.1 % (40-65) 04/02/18 03:11 VBG Base Excess 6.4 mmol/L (0.0-2.0) H 04/02/18 03:11 VBG Potassium 3.6 mmol/L (3.6-5.2) 04/02/18 03:11 Sodium 135.0 mmol/L (132-148) 04/02/18 03:11 Chloride 97.0 mmol/L (98-107) L 04/02/18 03:11 Glucose 319 mg/dL (75-110) H 04/02/18 03:11 Lactate 2.3 mmol/L (0.7-2.1) H 04/02/18 03:11 FiO2 21.0 % 04/02/18 03:11 Sodium 135 mmol/l (132-148) 04/20/18 06:25 Potassium 4.6 MMOL/L (3.6-5.0) 04/20/18 06:25 Chloride 99 mmol/L (98-107) 04/20/18 06:25 Carbon Dioxide 29 mmol/L (22-30) 04/20/18 06:25 Anion Gap 12 (10-20) 04/20/18 06:25 BUN 9 mg/dl (9-20) 04/20/18 06:25 Creatinine 0.9 mg/dl (0.8-1.5) 04/20/18 06:25 Est GFR ( Amer) > 60 04/20/18 06:25 Est GFR (Non-Af Amer) > 60 04/20/18 06:25 POC Glucose (mg/dL) 172 mg/dL (65-110) H 04/20/18 05:33 Random Glucose 145 mg/dL (75-110) H 04/20/18 06:25 Hemoglobin A1c 14.0 % (4.2-6.5) H 04/09/18 06:21 Insulin Level 1.5 uIU/mL (2.0-19.6) L 04/15/18 06:35 C-Peptide 0.45 ng/mL (0.80-3.85) L 04/15/18 06:20 Lactic Acid 0.9 mmol/L (0.7-2.1) 04/03/18 11:30 Calcium 8.3 mg/dL (8.4-10.2) L 04/20/18 06:25 Phosphorus 3.1 mg/dl (2.5-4.5) 04/20/18 06:25 Magnesium 1.3 MG/DL (1.6-2.3) L 04/20/18 06:25 Total Bilirubin 0.2 mg/dl (0.2-1.3) 04/20/18 06:25 AST 27 U/L (17-59) 04/20/18 06:25 ALT 27 U/L (21-72) 04/20/18 06:25 Alkaline Phosphatase 79 U/L (38-126) 04/20/18 06:25 Total Protein 6.0 G/DL (6.3-8.2) L 04/20/18 06:25 Albumin 2.6 g/dL (3.5-5.0) L 04/20/18 06:25 Globulin 3.4 gm/dL (2.2-3.9) 04/20/18 06:25 Albumin/Globulin Ratio 0.8 (1.0-2.1) L 04/20/18 06:25 Prealbumin 5.0 mg/dL (17.6-36.0) L 04/11/18 05:30 Triglycerides 73 mg/DL (0-149) D 04/09/18 06:21 Cholesterol 61 mg/dL (0-199) 04/08/18 06:00 LDL Cholesterol Direct 33 mg/dL (0-129) 04/08/18 06:00 HDL Cholesterol 11 MG/DL (30-70) L 04/08/18 06:00 Lipase 41 U/L (23-300) 04/01/18 21:53 Procalcitonin 0.14 NG/ML (0.19-0.49) L 04/19/18 14:57 TSH 3rd Generation 2.72 mIU/ML (0.46-4.68) 04/15/18 06:20 Cortisol AM Sample 12.2 ug/dL (4.46-22.7) 04/15/18 06:35 ACTH 16 pg/mL (6-50) 04/15/18 06:20 Venous Blood Potassium 3.6 mmol/L (3.6-5.2) 04/02/18 03:11 Urine Color Yellow (YELLOW) 04/10/18 14:07 Urine Clarity Slighty-cloudy (Clear) 04/10/18 14:07 Urine pH 5.0 (5.0-8.0) 04/10/18 14:07 Ur Specific [place] 1.018 (1.003-1.030) 04/10/18 14:07 Urine Protein Negative mg/dL (NEGATIVE) 04/10/18 14:07 Urine Glucose (UA) 150 mg/dL (NEGATIVE) 04/10/18 14:07 Urine Ketones Negative mg/dL (NEGATIVE) 04/10/18 14:07 Urine Blood Small (NEGATIVE) 04/10/18 14:07 Urine Nitrate Negative (NEGATIVE) 04/10/18 14:07 Urine Bilirubin Negative (NEGATIVE) 04/10/18 14:07 Urine Urobilinogen 0.2-1.0 mg/dL (0.2-1.0) 04/10/18 14:07 Ur Leukocyte Esterase Neg Sadie/uL (Negative) 04/10/18 14:07 Urine RBC (Auto) 3 /hpf (0-3) 04/10/18 14:07 Urine Microscopic WBC 5 /hpf (0-5) 04/10/18 14:07 Ur Squamous Epith Cells 4 /hpf (0-5) 04/10/18 14:07 Urine Bacteria Rare (<OCC) 04/10/18 14:07 Stool Occult Blood Positive (NEGATIVE) H 04/18/18 07:59 Alcohol, Quantitative < 10 mg/dl (0-10) 04/01/18 21:53 C. difficile Ag & Toxin Positive antigen (NEGATIVE) 04/15/18 22:30 Blood Type A POSITIVE 04/16/18 17:30 Antibody Screen Negative 04/16/18 17:30 Crossmatch See Detail 04/16/18 17:30 BBK History Checked Patient has bt 04/16/18 17:30 - Hospital Course Hospital Course: 62M PMH of HTN, peripheral vascular disease, uncontrolled diabetes mellitus (not on home insulin as pt not agreeable), right AKA, admitted for bowel obstruction; s/p laparotomy lysis of adhesions and resection of ileal perforation with primary anastamosis POD#16. Patient stable for discharge at this time. No acute event overnight. He denies pain this morning. Patient admits to tolerating diabetic diet, passing flatus and having multiple soft BM. Denies fever/chills or nausea/vomiting. Incision with no packing, no gross drainage. Plan: Small Bowel Obstruction - Resolved - encourage OOB into chair - D/C to subacute rehab for continued physical therapy Leukocytosis, improving - c.diff antigen positive - Rx PO vanco 125 mg Q8 for 10 days Uncontrolled Diabetes Mellitus, type 2 - Resume home meds - continue Glipizide and Metformin Hypertension - Chronic - continue home meds PVD - Chronic - C/w Cilostazol, gabapentin PVD, L Foot ulcer - Chronic - c/s Podiatry; all recs appreciated - daily dressing changes w/ Dakins - patient to follow up with Dr. Hightower as outpatient for revascularization Dispo: Plan for DC to [facility] Discussed with Dr. Maribel Morrell PGY1 - Date & Time of H&P Date of H&P: 04/20/18 Time of H&P: 10:06 Discharge Exam - Head Exam Head Exam: ATRAUMATIC, NORMOCEPHALIC - ENT Exam ENT Exam: Mucous Membranes Moist - Neck Exam Neck exam: Full Rom - Respiratory Exam Respiratory Exam: Clear to PA & Lateral, NORMAL BREATHING PATTERN. absent: Accessory Muscle Use, Rales, Rhonchi, Respiratory Distress - Cardiovascular Exam Cardiovascular Exam: REGULAR RHYTHM, +S1, +S2 - GI/Abdominal Exam GI & Abdominal Exam: Normal Bowel Sounds, Soft. absent: Firm, Guarding, Rigid Additional comments: incision with no packing at inferior pole, no drainage or erythema - Extremities Exam Additional comments: R AKA Discharge Plan - Discharge Medications Prescriptions: GlipiZIDE [Glucotrol] 2.5 mg PO ACBD #30 tab Vancomycin [Vancocin (Oral/Rectal USE)] 125 mg PO Q8 10 Days #30 tab - Follow Up Plan Condition: FAIR Disposition: HOME/ ROUTINE Patient education suggested?: Yes Instructions: Small Bowel Obstruction, Small Bowel Obstruction (DC), Exploratory Laparotomy (DC), Acute Abdominal Pain (DC), Acute Abdominal Pain (GEN) Additional Instructions: follow up with primary MD 1 week Referrals: [facility] [Outside] Devante López MD [Staff Provider] - Jose Hightower MD [Staff Provider] -
[2018-04-20] MEDS: Insulin Lispro (humaLOG) 100 Units/ml Inj SC SCH ×4 (09:38→22:50)
[2018-04-20] MEDS: Sucralfate 1 gm/10 ml Oral Susp UD PO SCH ×2 (09:52→16:14)
[2018-04-20] MEDS: Potassium & Sodium Phosphate PO SCH ×2 (09:59→16:18)
--- NOTE | 2018-04-20 10:29 | CP.PCM.PN ---
Subjective - Date & Time of Evaluation Date of Evaluation: 04/20/18 Time of Evaluation: 10:21 - Subjective Subjective: Progress note for Dr. David, Patient seen this morning, resting comfortably in bed. Patient denies abdominal discomfort, pain at previous abdominal incision; improving. Tolerating regular diet well at this time. Admits to semisolid bowel movement this morning. Denies nausea/vomiting/fever/shortness of breath chest pain. Objective - Vital Signs/Intake and Output Vital Signs (last 24 hours): Temp Pulse Resp BP Pulse Ox 97.6 F 92 H 20 121/70 98 04/20/18 08:25 04/20/18 09:51 04/20/18 08:25 04/20/18 09:51 04/20/18 08:25 Intake and Output: 04/20/18 04/20/18 06:59 18:59 Intake Total 320 Output Total 270 Balance 50 - Medications Medications: Current Medications Acetaminophen (Tylenol 325mg/10.15ml Ud) 325 mg PO Q6 PRN PRN Reason: Pain, Mild (1-3) Last Admin: 04/14/18 17:42 Dose: 325 mg Acetaminophen (Tylenol 325mg Tab) 650 mg PO Q6 PRN PRN Reason: Pain, severe (8-10) Last Admin: 04/19/18 21:25 Dose: 650 mg Albuterol/Ipratropium (Duoneb 3 Mg/0.5 Mg (3 Ml) Ud) 3 ml INH RQ4 PRN PRN Reason: Shortness of Breath Atorvastatin Calcium (Lipitor) 40 mg PO DAILY [facility] Last Admin: 04/20/18 09:52 Dose: 40 mg Carvedilol (Coreg) 25 mg PO Q12 [facility] Last Admin: 04/20/18 09:51 Dose: 25 mg Clotrimazole (Mycelex Sandor) 10 mg MT 5XD [facility] Last Admin: 04/20/18 09:50 Dose: 10 mg Dextrose (Dextrose 50% Inj) 0 ml IV STAT PRN; Protocol PRN Reason: Hypoglycemia Protocol Last Admin: 04/17/18 11:08 Dose: 25 ml Dextrose (Glutose 15) 0 gm PO ONCE PRN; Protocol PRN Reason: Hypoglycemia Protocol Enoxaparin Sodium (Lovenox) 40 mg SC DAILY [facility]; Protocol Last Admin: 04/16/18 08:46 Dose: 40 mg Gabapentin (Neurontin) 300 mg PO HS [facility] Last Admin: 04/19/18 21:28 Dose: 300 mg Glipizide (Glucotrol) 2.5 mg PO ACBD [facility] Last Admin: 04/20/18 08:51 Dose: 2.5 mg Glucagon (Glucagen Diagnostic Kit) 0 mg IM STAT PRN; Protocol PRN Reason: Hypoglycemia Protocol Piperacillin Sod/Tazobactam (Sod 3.375 gm/ Sodium Chloride) 100 mls @ 100 mls/hr IVPB Q6 [facility]; Protocol Last Admin: 04/20/18 09:57 Dose: 100 mls/hr Insulin Human Lispro (Humalog) 0 units SC ACHS [facility]; Protocol Last Admin: 04/20/18 09:38 Dose: 1 units Lidocaine HCl (Lidocaine 2% Viscous) 15 ml PO Q4 PRN PRN Reason: Sore Throat Last Admin: 04/07/18 18:25 Dose: 15 ml Ondansetron HCl (Zofran Inj) 4 mg IVP Q6 PRN PRN Reason: Nausea/Vomiting Last Admin: 04/14/18 09:33 Dose: 4 mg Oxycodone HCl (Oxycodone Immediate Release Tab) 5 mg PO Q6 PRN PRN Reason: Pain, moderate (4-7) Last Admin: 04/19/18 03:55 Dose: 5 mg Pantoprazole Sodium (Protonix Inj) 40 mg IVP DAILY [facility] Last Admin: 04/20/18 09:53 Dose: 40 mg Phenol/Menthol (Phenaseptic 1.4% Throat [place]) 1 spry MT Q2 PRN PRN Reason: Nausea/Vomiting Potassium Phos/Sodium Phos (Neutra-Phos) 1 pkt PO BID [facility] Last Admin: 04/20/18 09:59 Dose: Not Given Sucralfate (Carafate Oral Susp) 1 gm PO BID [facility] Last Admin: 04/20/18 09:52 Dose: 1 gm Ticagrelor (Brilinta) 90 mg PO BID [facility] Vancomycin HCl (Vancocin (Oral/Rectal Use)) 125 mg PO Q8 [facility]; Protocol Last Admin: 04/20/18 09:47 Dose: 125 mg - Labs Labs: 04/20/18 06:25 04/20/18 06:25 PT 13.7 Seconds (9.8-13.1) H 04/01/18 21:53 INR 1.2 04/01/18 21:53 APTT 32.8 Seconds (25.6-37.1) 04/01/18 21:53 - Constitutional Appears: Well, Non-toxic, No Acute Distress - Head Exam Head Exam: ATRAUMATIC, NORMOCEPHALIC - Eye Exam Eye Exam: Normal appearance Pupil Exam: NORMAL ACCOMODATION - ENT Exam ENT Exam: Mucous Membranes Moist - Respiratory Exam Respiratory Exam: Clear to Ausculation Bilateral, NORMAL BREATHING PATTERN - Cardiovascular Exam Cardiovascular Exam: REGULAR RHYTHM, +S1, +S2 - GI/Abdominal Exam GI & Abdominal Exam: Tenderness, Normal Bowel Sounds - Neurological Exam Neurological Exam: Alert, Awake, Oriented x3 Assessment and Plan - Assessment and Plan (Free Text) Assessment: 62 year old male patient, with PMHx of HTN, PVD, DMII, admitted for partial SBO Plan: 1. Small Bowel Obstruction; Ileum Perforation s/p Open Laparotomy with adhesiolysis and resection of area of perforated ileum - Afebrile - General Surgery as primary team, Dr. López. - Regular diet - On IV Zosyn, Zofran PRN, Pantoprazole daily - C/w pain management tsh uric acid cortsione 2. C. Diff - Acute - C Diff toxin + - C/w Vancomycin PO- 4th day of oral antibiotic, recommend atleast 7 days total. 3. Leukocytosis - stable - WBC 8.1 - VSS - Continue with IV Zosyn. - Blood Cx no growth after 4 days. - Pro-calcitonin .52 4. DMII, uncontrolled with episodes of hypoglycemia - Chronic - Insulin sliding scale - ACHS; accuscheck - Endocrinology consulted, Dr cSanlon, reccs appreciated 5. Chronic normocytic anemia - stable - Hgb 11.1 6. Cachexia - Advanced to regular diet - TPN d/c 7. L foot ulcer secondary to PVD, R AKA - Chronic - Podiatry consulted, Dr. Pham, reccs appreciated - Left LE MRI ordered, difficult to evaluate, OM not ruled out; recommend 3 phase nuclear bone scan 8. HTN - Chronic - C/w Coreg 9. HLD - Chronic - C/w Lipitor 10. Abd Wound c/s : Klebsiella ESBL and VRE - reported today 3/ - unclear what was cultured - pt clinically better today, WBC count trending down, afebrile - Culture growing VRE/ESBL; per surgery team possible colonization 11. DVT prophylaxis - Lovenox 40 mg SC daily stable for discharge.
--- NOTE | 2018-04-20 11:24 | CP.PCM.PN ---
Subjective - Date & Time of Evaluation Date of Evaluation: 04/20/18 Time of Evaluation: 11:03 - Subjective Subjective: Podiatry progress note: Dr. Pham 62 y/o M patient seen and evaluated at the bedside for left foot non healing ulcer, gangrenous changes at the left 2nd and 3rd digits and PVD, patient was resting comfortably and in NAD. Patient states that he is having less pain to his foot today. He denies any overnight nausea/vomiting/fever. He admits that his diarrhea is improving but he had episode of diarrhea today morning.. Patient dressing clean/dry/intact, no strike through. Patient is leaving today to [facility]. Objective - Vital Signs/Intake and Output Vital Signs (last 24 hours): Temp Pulse Resp BP Pulse Ox 97.6 F 92 H 20 121/70 98 04/20/18 08:25 04/20/18 09:51 04/20/18 08:25 04/20/18 09:51 04/20/18 08:25 Intake and Output: 04/20/18 04/20/18 06:59 18:59 Intake Total 320 Output Total 270 Balance 50 - Medications Medications: Current Medications Acetaminophen (Tylenol 325mg/10.15ml Ud) 325 mg PO Q6 PRN PRN Reason: Pain, Mild (1-3) Last Admin: 04/14/18 17:42 Dose: 325 mg Acetaminophen (Tylenol 325mg Tab) 650 mg PO Q6 PRN PRN Reason: Pain, severe (8-10) Last Admin: 04/19/18 21:25 Dose: 650 mg Albuterol/Ipratropium (Duoneb 3 Mg/0.5 Mg (3 Ml) Ud) 3 ml INH RQ4 PRN PRN Reason: Shortness of Breath Atorvastatin Calcium (Lipitor) 40 mg PO DAILY [facility] Last Admin: 04/20/18 09:52 Dose: 40 mg Carvedilol (Coreg) 25 mg PO Q12 [facility] Last Admin: 04/20/18 09:51 Dose: 25 mg Clotrimazole (Mycelex Sandor) 10 mg MT 5XD [facility] Last Admin: 04/20/18 09:50 Dose: 10 mg Dextrose (Dextrose 50% Inj) 0 ml IV STAT PRN; Protocol PRN Reason: Hypoglycemia Protocol Last Admin: 04/17/18 11:08 Dose: 25 ml Dextrose (Glutose 15) 0 gm PO ONCE PRN; Protocol PRN Reason: Hypoglycemia Protocol Enoxaparin Sodium (Lovenox) 40 mg SC DAILY [facility]; Protocol Last Admin: 04/16/18 08:46 Dose: 40 mg Gabapentin (Neurontin) 300 mg PO HS [facility] Last Admin: 04/19/18 21:28 Dose: 300 mg Glipizide (Glucotrol) 2.5 mg PO ACBD [facility] Last Admin: 04/20/18 08:51 Dose: 2.5 mg Glucagon (Glucagen Diagnostic Kit) 0 mg IM STAT PRN; Protocol PRN Reason: Hypoglycemia Protocol Piperacillin Sod/Tazobactam (Sod 3.375 gm/ Sodium Chloride) 100 mls @ 100 mls/hr IVPB Q6 [facility]; Protocol Last Admin: 04/20/18 09:57 Dose: 100 mls/hr Insulin Human Lispro (Humalog) 0 units SC ACHS [facility]; Protocol Last Admin: 04/20/18 09:38 Dose: 1 units Lidocaine HCl (Lidocaine 2% Viscous) 15 ml PO Q4 PRN PRN Reason: Sore Throat Last Admin: 04/07/18 18:25 Dose: 15 ml Ondansetron HCl (Zofran Inj) 4 mg IVP Q6 PRN PRN Reason: Nausea/Vomiting Last Admin: 04/14/18 09:33 Dose: 4 mg Oxycodone HCl (Oxycodone Immediate Release Tab) 5 mg PO Q6 PRN PRN Reason: Pain, moderate (4-7) Last Admin: 04/19/18 03:55 Dose: 5 mg Pantoprazole Sodium (Protonix Inj) 40 mg IVP DAILY [facility] Last Admin: 04/20/18 09:53 Dose: 40 mg Phenol/Menthol (Phenaseptic 1.4% Throat [place]) 1 spry MT Q2 PRN PRN Reason: Nausea/Vomiting Potassium Phos/Sodium Phos (Neutra-Phos) 1 pkt PO BID [facility] Last Admin: 04/20/18 09:59 Dose: Not Given Sucralfate (Carafate Oral Susp) 1 gm PO BID [facility] Last Admin: 04/20/18 09:52 Dose: 1 gm Ticagrelor (Brilinta) 90 mg PO BID [facility] Vancomycin HCl (Vancocin (Oral/Rectal Use)) 125 mg PO Q8 [facility]; Protocol Last Admin: 04/20/18 09:47 Dose: 125 mg - Labs Labs: 04/20/18 06:25 04/20/18 06:25 PT 13.7 Seconds (9.8-13.1) H 04/01/18 21:53 INR 1.2 04/01/18 21:53 APTT 32.8 Seconds (25.6-37.1) 04/01/18 21:53 - Constitutional Appears: Non-toxic, No Acute Distress - Head Exam Head Exam: ATRAUMATIC, NORMOCEPHALIC - Extremities Exam Additional comments: LLE focused exam: Vascular: DP non-palpable, PT non-palpable, Temp gradient warm to cool, no evidence of edema at this time Neuro: gross sensation intact, protective sensation diminished. Derm: arterial non-healing ulcer noted to the left first ray with 30% necrotic and 70% granular base, no malodor noted, minimal active drainage, no fluctuance, no erythema, no tunneling or tracking, no probe to bone, gangrenous changes noted to the left 2nd digit and the tip of the 3rd digits, dry gangrene, no signs of infection. MSK: Right AKA, pain to the left ulcer site with dressing changes, Muscle atrophy appreciated. - Neurological Exam Neurological Exam: Alert, Awake, Oriented x3 - Psychiatric Exam Psychiatric exam: Normal Affect, Normal Mood Assessment and Plan - Assessment and Plan (Free Text) Assessment: 62 y/o M patient seen and evaluated at the bedside for left foot non healing ulcer, gangrenous changes at the left 2nd and 3rd digits and PVD. Plan: Patient seen and evaluated Discussed in detail with Dr. Pham Chart, labs and vitals reviewed: Afebrile, No leukocytosis Wound cleansed with sterile saline and dressed with dakins and DSD Wound Culture obtained; No growth MRI ordered of the left foot to r/o osteomyelitis; Failure fat separation pre cludes adequate evaluation of the Marrow. Accordingly, is difficult to evaluate for osteomyelitis. Prior great toe and distal segment 1st metatarsal amputation are reiterated. Myositis is suggested at the forefoot and midfoot musculature. Consider follow-up nuclear three-phase bone scan or tagged white blood cell study to evaluate for potential osteomyelitis. X-ray left foot - irregular navicular, normal post amputation site CT- bulky calcific plaque of the distal common femoral artery extending into the prox SFA and also the profunda. Abnormal course of anterior tibial artery which is otherwise patent. Spoke to Dr. Hightower. He plan to do a revasularization for the patient on ou tpatient bases. Patient needs daily dressing change to his left foot ulcer using Dakins wet to dry using dry sterile dressing. Patient advised to come to the ED in case of any signs of local wound infection (redness, hotness, swelling, pus drainage), or systemic infection (fever, malaise, nausea, vomiting...etc) Patient to be discharged to [facility]. Patient to follow up in the podiatry clinic for local wound care and further surgical planning.
--- NOTE | 2018-04-20 13:47 | PN ---
DATE: 04/20/2018 LOCATION: Room 653. SUBJECTIVE: This is a 62-year-old male with recent uncontrolled type 2 diabetes, now being followed closely for metabolic management. His glycemic levels have improved overnight and glucose levels have ranged from 172 to 177 mg/dL. His chemistry showed a BUN of 9, sodium 135, potassium 4.6, chloride 99, CO2 of 29, glucose 145 and creatinine 0.9. So, at this time, we will continue the same low-dose oral hypoglycemic therapy as given with glipizide given as 2.5 mg b.i.d. as ordered. We will obtain serial chemistries and supplement accordingly as needed. We will follow up. Gabi Scanlon MD
[2018-04-20] MEDS: oxyCODONE 5 mg Immediate Release Tab PO PRN (21:56)
[2018-04-21] MEDS: Vancomycin 500 mg (Oral/Rectal USE) PO SCH ×3 (00:26→16:21)
[2018-04-21] MEDS: Piperacillin/Tazobact 3.375 GM in Sodium Chloride 0.9% 100 ML IVPB SCH ×3 (04:05→16:18)
[2018-04-21] MEDS: Insulin Lispro (humaLOG) 100 Units/ml Inj SC SCH ×3 (08:44→16:20)
[2018-04-21] MEDS: Sucralfate 1 gm/10 ml Oral Susp UD PO SCH ×2 (09:09→16:19)
[2018-04-21] MEDS: Potassium & Sodium Phosphate PO SCH ×2 (09:12→16:21)
[2018-04-21 10:38] VITALS: RESP 20
--- NOTE | 2018-04-21 11:51 | CP.PCM.PN ---
Subjective - Date & Time of Evaluation Date of Evaluation: 04/21/18 Time of Evaluation: 11:49 - Subjective Subjective: Progress note for Dr. David, Patient seen this morning, resting comfortably in bed. Patient denies abdominal discomfort, pain at previous abdominal incision; improving. Tolerating regular diet well at this time. Admits to semi-solid bowel movement this morning. Denies nausea/vomiting/fever/shortness of breath chest pain. Objective - Vital Signs/Intake and Output Vital Signs (last 24 hours): Temp Pulse Resp BP Pulse Ox 97.5 F L 80 20 127/81 90 L 04/21/18 08:35 04/21/18 09:10 04/21/18 08:35 04/21/18 09:10 04/21/18 08:35 - Medications Medications: Current Medications Acetaminophen (Tylenol 325mg/10.15ml Ud) 325 mg PO Q6 PRN PRN Reason: Pain, Mild (1-3) Last Admin: 04/14/18 17:42 Dose: 325 mg Acetaminophen (Tylenol 325mg Tab) 650 mg PO Q6 PRN PRN Reason: Pain, severe (8-10) Last Admin: 04/19/18 21:25 Dose: 650 mg Albuterol/Ipratropium (Duoneb 3 Mg/0.5 Mg (3 Ml) Ud) 3 ml INH RQ4 PRN PRN Reason: Shortness of Breath Atorvastatin Calcium (Lipitor) 40 mg PO DAILY [facility] Last Admin: 04/21/18 09:11 Dose: 40 mg Carvedilol (Coreg) 25 mg PO Q12 [facility] Last Admin: 04/21/18 09:10 Dose: 25 mg Clotrimazole (Mycelex Sandor) 10 mg MT 5XD [facility] Last Admin: 04/21/18 09:10 Dose: 10 mg Dextrose (Dextrose 50% Inj) 0 ml IV STAT PRN; Protocol PRN Reason: Hypoglycemia Protocol Last Admin: 04/17/18 11:08 Dose: 25 ml Dextrose (Glutose 15) 0 gm PO ONCE PRN; Protocol PRN Reason: Hypoglycemia Protocol Enoxaparin Sodium (Lovenox) 40 mg SC DAILY [facility]; Protocol Last Admin: 04/16/18 08:46 Dose: 40 mg Gabapentin (Neurontin) 300 mg PO HS [facility] Last Admin: 04/20/18 22:03 Dose: 300 mg Glipizide (Glucotrol) 2.5 mg PO ACBD [facility] Last Admin: 04/21/18 09:11 Dose: 2.5 mg Glucagon (Glucagen Diagnostic Kit) 0 mg IM STAT PRN; Protocol PRN Reason: Hypoglycemia Protocol Piperacillin Sod/Tazobactam (Sod 3.375 gm/ Sodium Chloride) 100 mls @ 100 mls/hr IVPB Q6 [facility]; Protocol Last Admin: 04/21/18 09:12 Dose: 100 mls/hr Insulin Human Lispro (Humalog) 0 units SC ACHS [facility]; Protocol Last Admin: 04/21/18 08:44 Dose: Not Given Lidocaine HCl (Lidocaine 2% Viscous) 15 ml PO Q4 PRN PRN Reason: Sore Throat Last Admin: 04/07/18 18:25 Dose: 15 ml Ondansetron HCl (Zofran Inj) 4 mg IVP Q6 PRN PRN Reason: Nausea/Vomiting Last Admin: 04/14/18 09:33 Dose: 4 mg Oxycodone HCl (Oxycodone Immediate Release Tab) 5 mg PO Q6 PRN PRN Reason: Pain, moderate (4-7) Last Admin: 04/20/18 21:56 Dose: 5 mg Pantoprazole Sodium (Protonix Inj) 40 mg IVP DAILY [facility] Last Admin: 04/21/18 09:12 Dose: 40 mg Phenol/Menthol (Phenaseptic 1.4% Throat [place]) 1 spry MT Q2 PRN PRN Reason: Nausea/Vomiting Potassium Phos/Sodium Phos (Neutra-Phos) 1 pkt PO BID [facility] Last Admin: 04/21/18 09:12 Dose: Not Given Sucralfate (Carafate Oral Susp) 1 gm PO BID [facility] Last Admin: 04/21/18 09:09 Dose: 1 gm Ticagrelor (Brilinta) 90 mg PO BID [facility] Vancomycin HCl (Vancocin (Oral/Rectal Use)) 125 mg PO Q8 [facility]; Protocol Last Admin: 04/21/18 09:12 Dose: 125 mg - Labs Labs: 04/20/18 06:25 04/20/18 06:25 PT 13.7 Seconds (9.8-13.1) H 04/01/18 21:53 INR 1.2 04/01/18 21:53 APTT 32.8 Seconds (25.6-37.1) 04/01/18 21:53 - Constitutional Appears: Well, Non-toxic, No Acute Distress - Head Exam Head Exam: ATRAUMATIC, NORMOCEPHALIC - Eye Exam Eye Exam: Normal appearance Pupil Exam: NORMAL ACCOMODATION - ENT Exam ENT Exam: Mucous Membranes Moist - Cardiovascular Exam Cardiovascular Exam: REGULAR RHYTHM - GI/Abdominal Exam GI & Abdominal Exam: Tenderness, Normal Bowel Sounds - Neurological Exam Neurological Exam: Alert, Awake, Oriented x3 Assessment and Plan - Assessment and Plan (Free Text) Assessment: 62 year old male patient, with PMHx of HTN, PVD, DMII, admitted for partial SBO Plan: 1. Small Bowel Obstruction; Ileum Perforation s/p Open Laparotomy with adhesiolysis and resection of area of perforated ileum - Afebrile - General Surgery as primary team, Dr. López. - Regular diet - On IV Zosyn, Zofran PRN, Pantoprazole daily - C/w pain management tsh uric acid cortsione 2. C. Diff - Acute - C Diff toxin + - C/w Vancomycin PO- 4th day of oral antibiotic, recommend atleast 7 days total. 3. Leukocytosis - stable - WBC 8.1 - VSS - Continue with IV Zosyn. - Blood Cx no growth after 4 days. - Pro-calcitonin .52 4. DMII, uncontrolled with episodes of hypoglycemia - Chronic - Insulin sliding scale - ACHS; accuscheck - Endocrinology consulted, Dr Scanlon, reccs appreciated 5. Chronic normocytic anemia - stable - Hgb 11.1 6. Cachexia - Advanced to regular diet - TPN d/c 7. L foot ulcer secondary to PVD, R AKA - Chronic - Podiatry consulted, Dr. Pham, reccs appreciated - Left LE MRI ordered, difficult to evaluate, OM not ruled out; recommend 3 phase nuclear bone scan 8. HTN - Chronic - C/w Coreg 9. HLD - Chronic - C/w Lipitor 10. Abd Wound c/s : Klebsiella ESBL and VRE - reported today 3/3 - unclear what was cultured - pt clinically better today, WBC count trending down, afebrile - Culture growing VRE/ESBL; per surgery team possible colonization 11. DVT prophylaxis - Lovenox 40 mg SC daily stable for discharge.
--- NOTE | 2018-04-21 15:21 | CP.PCM.PN ---
Subjective - Date & Time of Evaluation Date of Evaluation: 04/21/18 Time of Evaluation: 15:18 - Subjective Subjective: General Surgery Note for Dr. Palomino Patient seen and examined at bedside. No acute event overnight. He denies pain this morning. Patient admits to tolerating diabetic diet, passing flatus and having soft BM. Denies fever/chills or nausea/vomiting. Objective - Vital Signs/Intake and Output Vital Signs (last 24 hours): Temp Pulse Resp BP Pulse Ox 97.5 F L 80 20 127/81 90 L 04/21/18 08:35 04/21/18 09:10 04/21/18 08:35 04/21/18 09:10 04/21/18 08:35 - Medications Medications: Current Medications Acetaminophen (Tylenol 325mg/10.15ml Ud) 325 mg PO Q6 PRN PRN Reason: Pain, Mild (1-3) Last Admin: 04/14/18 17:42 Dose: 325 mg Acetaminophen (Tylenol 325mg Tab) 650 mg PO Q6 PRN PRN Reason: Pain, severe (8-10) Last Admin: 04/19/18 21:25 Dose: 650 mg Albuterol/Ipratropium (Duoneb 3 Mg/0.5 Mg (3 Ml) Ud) 3 ml INH RQ4 PRN PRN Reason: Shortness of Breath Atorvastatin Calcium (Lipitor) 40 mg PO DAILY [facility] Last Admin: 04/21/18 09:11 Dose: 40 mg Carvedilol (Coreg) 25 mg PO Q12 [facility] Last Admin: 04/21/18 09:10 Dose: 25 mg Clotrimazole (Mycelex Sandor) 10 mg MT 5XD [facility] Last Admin: 04/21/18 12:25 Dose: 10 mg Dextrose (Dextrose 50% Inj) 0 ml IV STAT PRN; Protocol PRN Reason: Hypoglycemia Protocol Last Admin: 04/17/18 11:08 Dose: 25 ml Dextrose (Glutose 15) 0 gm PO ONCE PRN; Protocol PRN Reason: Hypoglycemia Protocol Enoxaparin Sodium (Lovenox) 40 mg SC DAILY [facility]; Protocol Last Admin: 04/16/18 08:46 Dose: 40 mg Gabapentin (Neurontin) 300 mg PO HS [facility] Last Admin: 04/20/18 22:03 Dose: 300 mg Glipizide (Glucotrol) 2.5 mg PO ACBD [facility] Last Admin: 04/21/18 09:11 Dose: 2.5 mg Glucagon (Glucagen Diagnostic Kit) 0 mg IM STAT PRN; Protocol PRN Reason: Hypoglycemia Protocol Piperacillin Sod/Tazobactam (Sod 3.375 gm/ Sodium Chloride) 100 mls @ 100 mls/hr IVPB Q6 [facility]; Protocol Last Admin: 04/21/18 09:12 Dose: 100 mls/hr Insulin Human Lispro (Humalog) 0 units SC ACHS [facility]; Protocol Last Admin: 04/21/18 12:25 Dose: 1 units Lidocaine HCl (Lidocaine 2% Viscous) 15 ml PO Q4 PRN PRN Reason: Sore Throat Last Admin: 04/07/18 18:25 Dose: 15 ml Ondansetron HCl (Zofran Inj) 4 mg IVP Q6 PRN PRN Reason: Nausea/Vomiting Last Admin: 04/14/18 09:33 Dose: 4 mg Oxycodone HCl (Oxycodone Immediate Release Tab) 5 mg PO Q6 PRN PRN Reason: Pain, moderate (4-7) Last Admin: 04/20/18 21:56 Dose: 5 mg Pantoprazole Sodium (Protonix Inj) 40 mg IVP DAILY [facility] Last Admin: 04/21/18 09:12 Dose: 40 mg Phenol/Menthol (Phenaseptic 1.4% Throat [place]) 1 spry MT Q2 PRN PRN Reason: Nausea/Vomiting Potassium Phos/Sodium Phos (Neutra-Phos) 1 pkt PO BID [facility] Last Admin: 04/21/18 09:12 Dose: Not Given Sucralfate (Carafate Oral Susp) 1 gm PO BID [facility] Last Admin: 04/21/18 09:09 Dose: 1 gm Ticagrelor (Brilinta) 90 mg PO BID [facility] Vancomycin HCl (Vancocin (Oral/Rectal Use)) 125 mg PO Q8 [facility]; Protocol Last Admin: 04/21/18 09:12 Dose: 125 mg - Labs Labs: 04/20/18 06:25 04/20/18 06:25 PT 13.7 Seconds (9.8-13.1) H 04/01/18 21:53 INR 1.2 04/01/18 21:53 APTT 32.8 Seconds (25.6-37.1) 04/01/18 21:53 - Constitutional Appears: Well, Non-toxic, No Acute Distress - Head Exam Head Exam: ATRAUMATIC, NORMOCEPHALIC - Eye Exam Eye Exam: Normal appearance - ENT Exam ENT Exam: Mucous Membranes Moist - Neck Exam Neck Exam: Full ROM. absent: Lymphadenopathy - Respiratory Exam Respiratory Exam: Clear to Ausculation Bilateral, NORMAL BREATHING PATTERN. absent: Rales, Rhonchi, Respiratory Distress - Cardiovascular Exam Cardiovascular Exam: REGULAR RHYTHM, +S1, +S2 - GI/Abdominal Exam GI & Abdominal Exam: Soft, Normal Bowel Sounds. absent: Firm, Guarding, Rigid - Extremities Exam Additional comments: R AKA L dressing clean, dry intact - Neurological Exam Neurological Exam: Alert, Awake, Oriented x3 - Psychiatric Exam Psychiatric exam: Normal Affect, Normal Mood - Skin Skin Exam: Normal Color Assessment and Plan - Assessment and Plan (Free Text) Assessment: 62M PMH of HTN, peripheral vascular disease, uncontrolled diabetes mellitus (not on home insulin as pt not agreeable), right AKA, admitted for bowel obstruction; s/p laparotomy lysis of adhesions and resection of ileal perforation with p rimary anastamosis POD#17. Plan: Small Bowel Obstruction - Resolved - anti-emetic and pain control PRN - monitor daily electrolytes, replete as necessary - Reglan - encourage OOB into chair - aggressive physical therapy Leukocytosis decreasing - c.diff antigen positive - Continue PO vanc - Rx Vanco on discharge Cough - duonebs PRN; cough resolved - Aggressive Incentive Spirometry PVD, L Foot ulcer - Chronic - c/s Podiatry; all recs appreciated - daily dressing changes w/ Dakins - follow up with Dr. Hightower as outpatient for revasc Cachexia -ADA -will DC PPN Prophylaxis - Lovenox, and Protonix Dispo: Plan for DC to [facility], pending approval by insurance Discussed with Dr. Maribel Morrell, PGY1
[2018-04-21] MEDS ORDERED: oxyCODONE 10 mg Immediate Release Tab PO ONE (15:32)
[2018-04-21 16:28] VITALS: O2SAT 100
--- NOTE | 2018-04-21 17:31 | CP.PCM.DIS ---
Provider - Provider Date of Admission: 04/02/18 00:25 Attending physician: Devante López MD Primary care physician: [facility] Consults: 04/02/18 01:00 Surgical [General Surgery Consult] Stat Comment: Consulting Provider: Devante López Consulting Physician: Devante López Reason for Consult: SBO 04/02/18 05:36 Social Work Referral Routine Comment: lives alone Physician Instructions: Reason For Exam: lives alone 04/02/18 12:14 Psychiatry Consult Routine Comment: Consulting Provider: Bina Davila Consulting Physician: Bina Davila Reason for Consult: Psych evaluation r/o depression 04/02/18 12:37 Podiatry Consult Routine Comment: Consulting Provider: Dandre Pham Consulting Physician: Dandre Pham Reason for Consult: Foot ulceration 04/04/18 11:44 Diabetic Education Referral Routine Comment: Physician Instructions: Reason For Exam: HGA1C 15.4, refusing insulin due to fear of needle 04/06/18 15:08 Vascular Surgery Routine Comment: Consulting Provider: Jose Stevenson Physician Instructions: Reason For Exam: left foot non-palpable pulses 04/07/18 16:38 Hospitalist Consult Routine Comment: Consulting Provider: Gema Patel Consulting Physician: Gema Patel Reason for Consult: For medical issues 04/08/18 08:11 Endocrinology Consult Routine Comment: Consulting Provider: Gabi Scanlon Consulting Physician: Gabi Scanlon Reason for Consult: Uncontrolled Diabetes while on medication Time Spent in preparation of Discharge (in minutes): 30 Hospital Course - Lab Results Lab Results: Micro Results 04/15/18 06:20 Blood-Thru Central Line Blood Culture - Final NO GROWTH AFTER 5 DAYS 04/15/18 06:20 Blood-Thru Central Line Gram Stain - Final TEST NOT PERFORMED 04/15/18 06:35 Blood-Thru Central Line Blood Culture - Final NO GROWTH AFTER 5 DAYS 04/15/18 06:35 Blood-Thru Central Line Gram Stain - Final TEST NOT PERFORMED 04/16/18 16:40 Foot - Left Gram Stain - Final 04/16/18 16:40 Foot - Left Wound Culture - Final No growth. 04/15/18 16:00 Catheter Tip Catheter Tip Culture - Final No growth. 04/15/18 16:00 Catheter Tip Catheter Tip Culture - Final No growth. 04/15/18 16:00 Abdomen Gram Stain - Final 04/15/18 16:00 Abdomen Wound Culture - Final Klebsiella Pneumoniae Ssp Pneu Vancomycin Resistant E.faecium 04/15/18 22:30 Stool Stool Culture - Final NO SALMONELLA, SHIGELLA OR CAMPYLOBACTER ISOLATED. 04/16/18 09:50 Sputum Gram Stain - Final 04/16/18 09:50 Sputum Sputum Culture - Final 04/16/18 08:45 Urine,Clean Catch Urine Culture - Final No Growth (<1,000 CFU/ML) 04/10/18 10:20 Blood-Venous Blood Culture - Final NO GROWTH AFTER 5 DAYS 04/10/18 10:20 Blood-Venous Gram Stain - Final TEST NOT PERFORMED 04/10/18 10:20 Blood-Venous Blood Culture - Final NO GROWTH AFTER 5 DAYS 04/10/18 10:20 Blood-Venous Gram Stain - Final TEST NOT PERFORMED Most Recent Lab Values WBC 8.1 K/uL (4.8-10.8) 04/20/18 06:25 RBC 3.95 Mil/uL (4.40-5.90) L 04/20/18 06:25 Hgb 11.1 g/dL (12.0-18.0) L 04/20/18 06:25 Hct 34.2 % (35.0-51.0) L 04/20/18 06:25 MCV 86.7 fl (80.0-94.0) 04/20/18 06:25 MCH 28.2 pg (27.0-31.0) 04/20/18 06:25 MCHC 32.6 g/dL (33.0-37.0) L 04/20/18 06:25 RDW 15.9 % (11.5-14.5) H 04/20/18 06:25 Plt Count 436 K/uL (130-400) H 04/20/18 06:25 MPV 9.4 fl (7.2-11.7) 04/20/18 06:25 Neut % (Auto) 57.1 % (50.0-75.0) 04/20/18 06:25 Lymph % (Auto) 29.2 % (20.0-40.0) 04/20/18 06:25 [place] % (Auto) 10.4 % (0.0-10.0) H 04/20/18 06:25 Eos % (Auto) 1.9 % (0.0-4.0) 04/20/18 06:25 Baso % (Auto) 1.4 % (0.0-2.0) 04/20/18 06:25 Neut # (Auto) 4.6 K/uL (1.8-7.0) 04/20/18 06:25 Lymph # (Auto) 2.4 K/uL (1.0-4.3) 04/20/18 06:25 [place] # (Auto) 0.8 K/uL (0.0-0.8) 04/20/18 06:25 Eos # (Auto) 0.2 K/uL (0.0-0.7) 04/20/18 06:25 Baso # (Auto) 0.1 K/uL (0.0-0.2) 04/20/18 06:25 Neutrophils % (Manual) 81 % (42-75) H 04/15/18 06:20 Band Neutrophils % 3 % (0-2) H 04/15/18 06:20 Lymphocytes % (Manual) 8 % (20-50) L 04/15/18 06:20 Monocytes % (Manual) 6 % (0-10) 04/15/18 06:20 Eosinophils % (Manual) 2 % (0-7) 04/15/18 06:20 Toxic Granulation Present 04/15/18 06:20 Platelet Estimate Slightly increased (NORMAL) H 04/15/18 06:20 Large Platelets Present 04/15/18 06:20 Hypochromasia (manual) Slight 04/15/18 06:20 Poikilocytosis (manual Slight 04/01/18 21:53 Anisocytosis (manual) Slight 04/15/18 06:20 Microcytosis (manual) Slight 04/01/18 21:53 PT 13.7 Seconds (9.8-13.1) H 04/01/18 21:53 INR 1.2 04/01/18 21:53 APTT 32.8 Seconds (25.6-37.1) 04/01/18 21:53 pO2 24 mm/Hg (30-55) L 04/02/18 03:11 VBG pH 7.37 (7.32-7.43) 04/02/18 03:11 VBG pCO2 58 mmHg (40-60) 04/02/18 03:11 VBG HCO3 28.4 mmol/L 04/02/18 03:11 VBG Total CO2 35.3 mmol/L (22-28) H 04/02/18 03:11 VBG O2 Sat (Calc) 50.1 % (40-65) 04/02/18 03:11 VBG Base Excess 6.4 mmol/L (0.0-2.0) H 04/02/18 03:11 VBG Potassium 3.6 mmol/L (3.6-5.2) 04/02/18 03:11 Sodium 135.0 mmol/L (132-148) 04/02/18 03:11 Chloride 97.0 mmol/L (98-107) L 04/02/18 03:11 Glucose 319 mg/dL (75-110) H 04/02/18 03:11 Lactate 2.3 mmol/L (0.7-2.1) H 04/02/18 03:11 FiO2 21.0 % 04/02/18 03:11 Sodium 135 mmol/l (132-148) 04/20/18 06:25 Potassium 4.6 MMOL/L (3.6-5.0) 04/20/18 06:25 Chloride 99 mmol/L (98-107) 04/20/18 06:25 Carbon Dioxide 29 mmol/L (22-30) 04/20/18 06:25 Anion Gap 12 (10-20) 04/20/18 06:25 BUN 9 mg/dl (9-20) 04/20/18 06:25 Creatinine 0.9 mg/dl (0.8-1.5) 04/20/18 06:25 Est GFR ( Amer) > 60 04/20/18 06:25 Est GFR (Non-Af Amer) > 60 04/20/18 06:25 POC Glucose (mg/dL) 168 mg/dL (65-110) H 04/21/18 16:06 Random Glucose 145 mg/dL (75-110) H 04/20/18 06:25 Hemoglobin A1c 14.0 % (4.2-6.5) H 04/09/18 06:21 Insulin Level 1.5 uIU/mL (2.0-19.6) L 04/15/18 06:35 C-Peptide 0.45 ng/mL (0.80-3.85) L 04/15/18 06:20 Lactic Acid 0.9 mmol/L (0.7-2.1) 04/03/18 11:30 Calcium 8.3 mg/dL (8.4-10.2) L 04/20/18 06:25 Phosphorus 3.1 mg/dl (2.5-4.5) 04/20/18 06:25 Magnesium 1.3 MG/DL (1.6-2.3) L 04/20/18 06:25 Total Bilirubin 0.2 mg/dl (0.2-1.3) 04/20/18 06:25 AST 27 U/L (17-59) 04/20/18 06:25 ALT 27 U/L (21-72) 04/20/18 06:25 Alkaline Phosphatase 79 U/L (38-126) 04/20/18 06:25 Total Protein 6.0 G/DL (6.3-8.2) L 04/20/18 06:25 Albumin 2.6 g/dL (3.5-5.0) L 04/20/18 06:25 Globulin 3.4 gm/dL (2.2-3.9) 04/20/18 06:25 Albumin/Globulin Ratio 0.8 (1.0-2.1) L 04/20/18 06:25 Prealbumin 5.0 mg/dL (17.6-36.0) L 04/11/18 05:30 Triglycerides 73 mg/DL (0-149) D 04/09/18 06:21 Cholesterol 61 mg/dL (0-199) 04/08/18 06:00 LDL Cholesterol Direct 33 mg/dL (0-129) 04/08/18 06:00 HDL Cholesterol 11 MG/DL (30-70) L 04/08/18 06:00 Lipase 41 U/L (23-300) 04/01/18 21:53 Procalcitonin 0.14 NG/ML (0.19-0.49) L 04/19/18 14:57 TSH 3rd Generation 2.72 mIU/ML (0.46-4.68) 04/15/18 06:20 Cortisol AM Sample 12.2 ug/dL (4.46-22.7) 04/15/18 06:35 ACTH 16 pg/mL (6-50) 04/15/18 06:20 Venous Blood Potassium 3.6 mmol/L (3.6-5.2) 04/02/18 03:11 Urine Color Yellow (YELLOW) 04/10/18 14:07 Urine Clarity Slighty-cloudy (Clear) 04/10/18 14:07 Urine pH 5.0 (5.0-8.0) 04/10/18 14:07 Ur Specific [place] 1.018 (1.003-1.030) 04/10/18 14:07 Urine Protein Negative mg/dL (NEGATIVE) 04/10/18 14:07 Urine Glucose (UA) 150 mg/dL (NEGATIVE) 04/10/18 14:07 Urine Ketones Negative mg/dL (NEGATIVE) 04/10/18 14:07 Urine Blood Small (NEGATIVE) 04/10/18 14:07 Urine Nitrate Negative (NEGATIVE) 04/10/18 14:07 Urine Bilirubin Negative (NEGATIVE) 04/10/18 14:07 Urine Urobilinogen 0.2-1.0 mg/dL (0.2-1.0) 04/10/18 14:07 Ur Leukocyte Esterase Neg Sadie/uL (Negative) 04/10/18 14:07 Urine RBC (Auto) 3 /hpf (0-3) 04/10/18 14:07 Urine Microscopic WBC 5 /hpf (0-5) 04/10/18 14:07 Ur Squamous Epith Cells 4 /hpf (0-5) 04/10/18 14:07 Urine Bacteria Rare (<OCC) 04/10/18 14:07 Stool Occult Blood Positive (NEGATIVE) H 04/18/18 07:59 Alcohol, Quantitative < 10 mg/dl (0-10) 04/01/18 21:53 C. difficile Ag & Toxin Positive antigen (NEGATIVE) 04/15/18 22:30 Blood Type A POSITIVE 04/16/18 17:30 Antibody Screen Negative 04/16/18 17:30 Crossmatch See Detail 04/16/18 17:30 BBK History Checked Patient has bt 04/16/18 17:30 - Hospital Course Hospital Course: 62M PMH of HTN, peripheral vascular disease, uncontrolled diabetes mellitus (not on home insulin as pt not agreeable), right AKA, admitted for bowel obstruction; s/p laparotomy lysis of adhesions and resection of ileal perforation with primary anastamosis POD#16. Patient stable for discharge at this time. No acute event overnight. He denies pain this morning. Patient admits to tolerating diabetic diet, passing flatus and having multiple soft BM. Denies fever/chills or nausea/vomiting. Incision with no packing, no gross drainage. Plan: Small Bowel Obstruction - Resolved - encourage OOB into chair - D/C to subacute rehab for continued physical therapy Leukocytosis, improving - c.diff antigen positive - Rx PO vanco 125 mg Q8 for 10 days Uncontrolled Diabetes Mellitus, type 2 - Resume home meds - continue Glipizide and Metformin Hypertension - Chronic - continue home meds PVD - Chronic - C/w Cilostazol, gabapentin PVD, L Foot ulcer - Chronic - c/s Podiatry; all recs appreciated - daily dressing changes w/ Dakins - patient to follow up with Dr. Stevenson as outpatient for revascularization Dispo: Plan for DC to [facility] Discussed with Dr. Maribel Morrell PGY1 - Date & Time of H&P Date of H&P: 04/21/18 Time of H&P: 17:30 Discharge Exam - Head Exam Head Exam: ATRAUMATIC, NORMOCEPHALIC - Eye Exam Eye Exam: Normal appearance - ENT Exam ENT Exam: Mucous Membranes Moist - Respiratory Exam Respiratory Exam: Clear to PA & Lateral, NORMAL BREATHING PATTERN. absent: Accessory Muscle Use, Rales, Rhonchi, Respiratory Distress - Cardiovascular Exam Cardiovascular Exam: REGULAR RHYTHM, +S1, +S2 - GI/Abdominal Exam GI & Abdominal Exam: Normal Bowel Sounds, Soft. absent: Distended, Firm, Guarding - Extremities Exam Additional comments: R AKA - Neurological Exam Neurological exam: Alert, Oriented x3 - Psychiatric Exam Psychiatric exam: Normal Affect, Normal Mood Discharge Plan - Discharge Medications Prescriptions: GlipiZIDE [Glucotrol] 2.5 mg PO ACBD #30 tab Vancomycin [Vancocin (Oral/Rectal USE)] 125 mg PO Q8 10 Days #30 tab - Follow Up Plan Condition: FAIR Disposition: HOME/ ROUTINE Patient education suggested?: Yes Instructions: Small Bowel Obstruction (DC), Exploratory Laparotomy (DC), Acute Abdominal Pain (DC) Additional Instructions: follow up at [facility] april 27 at 9:20am follow up with dr stevenson for revascularization follow up with shorthand reporter dr pham on 04/26/18 at 9am Referrals: [facility] [Outside] Jose Stevenson MD [Staff Provider] - Dandre Pham DPM [Staff Provider] - Devante López MD [Staff Provider] -
[2018-04-21 18:11] VITALS: BP 138/72; PULSE 82; TEMP 98.1
--- NOTE | 2018-04-21 20:08 | PN ---
DATE: 04/21/2018 ENDOCRINOLOGY FOLLOWUP NOTE LOCATION: Room 653. SUBJECTIVE: This is a 62-year-old male with recent uncontrolled type 2 insulin-requiring diabetes now being followed closely for metabolic management. He has been taken off all insulin therapy at this time and is tolerating the oral hypoglycemic therapy as given. His glucose values today have ranged from 117 to 168 mg/dL. PLAN: So at this time, we will continue the same oral hypoglycemic therapy given as glipizide at 2.5 mg b.i.d. before meals as ordered. We will obtain serial chemistries and supplement accordingly needed. We will follow. Gabi Scanlon MD
== END 2018-04-21 20:13 | DRG 553 ==
LOC: H.ER 20:52 → H.ERHOLD 04-02 00:25 → H.MEDSURG1 04-02 05:07
PROVIDERS: ADMIT Specialist; ATTEND Specialist
PROC: 0DN84ZZ Release Small Intestine, Percutaneous Endoscopic Approach (ICD-10-PCS; 2018-04-04)
PROC: 0DBB0ZZ Excision of Ileum, Open Approach (ICD-10-PCS; principal; 2018-04-04 17:30)
PROC: 02HV33Z Insertion of Infusion Device into Superior Vena Cava, Percutaneous Approach (ICD-10-PCS; 2018-04-05)
PROC: 3E0336Z Introduction of Nutritional Substance into Peripheral Vein, Percutaneous Approach (ICD-10-PCS; 2018-04-06)
PROC: 30233N1 Transfusion of Nonautologous Red Blood Cells into Peripheral Vein, Percutaneous Approach (ICD-10-PCS; 2018-04-16)
DX: K56.51 Intestinal adhesions [bands], with partial obstruction (principal); K63.1 Perforation of intestine (nontraumatic); R64 Cachexia; K91.2 Postsurgical malabsorption, not elsewhere classified; E11.621 Type 2 diabetes mellitus with foot ulcer; L97.529 Non-pressure chronic ulcer of other part of left foot with unspecified severity; K91.89 Other postprocedural complications and disorders of digestive system; E11.649 Type 2 diabetes mellitus with hypoglycemia without coma; E11.52 Type 2 diabetes mellitus with diabetic peripheral angiopathy with gangrene; E11.42 Type 2 diabetes mellitus with diabetic polyneuropathy; E11.319 Type 2 diabetes mellitus with unspecified diabetic retinopathy without macular edema; E11.21 Type 2 diabetes mellitus with diabetic nephropathy; A04.72 Enterocolitis due to Clostridium difficile, not specified as recurrent; E87.5 Hyperkalemia; J98.11 Atelectasis; I96 Gangrene, not elsewhere classified; B96.1 Klebsiella pneumoniae [K. pneumoniae] as the cause of diseases classified elsewhere; E86.0 Dehydration; K56.7 Ileus, unspecified; Z89.611 Acquired absence of right leg above knee; E83.42 Hypomagnesemia; Z91.19 Patient's noncompliance with other medical treatment and regimen; E11.65 Type 2 diabetes mellitus with hyperglycemia; Z79.4 Long term (current) use of insulin; Z68.1 Body mass index [BMI] 19.9 or less, adult; F17.210 Nicotine dependence, cigarettes, uncomplicated; E78.5 Hyperlipidemia, unspecified; D63.8 Anemia in other chronic diseases classified elsewhere; I10 Essential (primary) hypertension; E78.00 Pure hypercholesterolemia, unspecified; I25.10 Atherosclerotic heart disease of native coronary artery without angina pectoris; D47.3 Essential (hemorrhagic) thrombocythemia; Z53.31 Laparoscopic surgical procedure converted to open procedure; K86.89 Other specified diseases of pancreas; B95.2 Enterococcus as the cause of diseases classified elsewhere; Z16.21 Resistance to vancomycin

== ENCOUNTER 2018-06-18 10:35 | Emergency (ER) | payer MEDICAID ==
[2018-06-18 10:40] VITALS: BP 155/78; PULSE 94; RESP 16; TEMP 97.8; O2SAT 100; BMI 19.9
--- NOTE | 2018-06-18 11:08 | ED PDOC ---
HPI: Wound Care - HPI Time Seen by Provider: 06/18/18 10:57 Chief Complaint (Nursing): Wound Check Chief Complaint (Provider): Wound Check History Per: Patient Exam Limitations: no limitations Additional Complaint(s): 62 y/o male presents to the ED s/p abdominal surgery. Patient is here due to having suture removed. Patient states suture threads protruding from wound and is requesting threads to be cut off. Patient denies abdominal pain, vomiting, or any fever. PMD: none provided Past Medical History Vital Signs: Last Vital Signs Temp 97.8 F 06/18/18 10:39 Pulse 94 H 06/18/18 10:39 Resp 16 06/18/18 10:39 BP 155/78 H 06/18/18 10:39 Pulse Ox 100 06/18/18 10:39 - Medical History PMH: Anemia, Diabetes, Gall Bladder Disease, HTN, Hypercholesterolemia, Pneumonia Denies: Fractures, HIV, Chronic Kidney Disease - Surgical History Surgical History: Cholecystectomy - Family History Family History: States: Unknown Family Hx - Home Medications Home Medications: Ambulatory Orders Medication Instructions Recorded Ammonium Lactate 12% [Lac-Hydrin 1 applic TOP TID #1 bottle 10/26/17 12% Lotion (225 g)] Atorvastatin [Lipitor] 40 mg PO DAILY #30 tab 10/26/17 Carvedilol [Coreg] 25 mg PO Q12 30 Days #60 tab 10/26/17 Cilostazol [Pletal] 100 mg PO BID #60 tab 10/26/17 Gabapentin [Neurontin] 300 mg PO HS #30 cap 10/26/17 Losartan [Cozaar] 50 mg PO DAILY #30 tab 10/26/17 Ticagrelor [Brilinta] 90 mg PO BID #60 tab 10/26/17 metFORMIN [glucOPHAGE] 850 mg PO BID #60 tab 10/26/17 oxyCODONE/Acetaminophen [Percocet 1 tab PO Q4 PRN #30 tab 01/13/18 5/325 mg Tab] GlipiZIDE [Glucotrol] 2.5 mg PO ACBD #30 tab 04/20/18 Vancomycin [Vancocin (Oral/Rectal 125 mg PO Q8 10 Days #30 tab 04/20/18 USE)] - Allergies Allergies/Adverse Reactions: Allergies Allergy/AdvReac Type Severity Reaction Status Date / Time garlic Allergy Mild RASH Verified 02/26/18 13:10 Review of Systems ROS Statement: Except As Marked, All Systems Reviewed And Found Negative Physical Exam - Reviewed Nursing Documentation Reviewed: Yes Vital Signs Reviewed: Yes - Physical Exam Appears: Positive for: Well, Non-toxic, No Acute Distress Head Exam: Positive for: ATRAUMATIC, NORMAL INSPECTION, NORMOCEPHALIC Skin: Positive for: Normal Color, Warm, DRY Eye Exam: Positive for: EOMI, Normal appearance, PERRL ENT: Positive for: Normal ENT Inspection Neck: Positive for: Normal, Painless ROM, Supple Cardiovascular/Chest: Positive for: Regular Rate, Rhythm. Negative for: Murmur Respiratory: Positive for: Normal Breath Sounds. Negative for: Wheezing Gastrointestinal/Abdominal: Positive for: Normal Exam, Soft. Negative for: Tenderness Back: Positive for: Normal Inspection. Negative for: L CVA Tenderness, R CVA Tenderness Extremity: Positive for: Normal ROM Neurological/Psych: Positive for: Awake, Alert, Normal Tone, Oriented (x3). Negative for: Motor/Sensory Deficits - ECG O2 Sat by Pulse Oximetry: 100 Medical Decision Making Medical Decision Making: Time:1103 Abdominal wound clean and dry. Suture line intact, end of suture protruding from wound and is initiating the skin. Sutures trimmed off. Scribe Attestation: Documented by Carla Powers, acting as a scribe for Elizabeth Thomason. Provider Scribe Attestation: All medical record entries made by the Scribe were at my direction and personally dictated by me. I have reviewed the chart and agree that the record accurately reflects my personal performance of the history, physical exam, medic al decision making, and the department course for this patient. I have also personally directed, reviewed, and agree with the discharge instructions and disposition. Disposition - Clinical Impression Clinical Impression: Visit for wound check - Patient ED Disposition Is Patient to be Admitted: No Counseled Patient/Family Regarding: Diagnosis, Need For Followup - Disposition Referrals: [facility] [Outside] Disposition: Routine/Home Disposition Time: 11:15 Condition: FAIR Instructions: Wound Care Forms: [employer] (Ugandan)
== END 2018-06-18 11:13 | disposition home or self-care (01) ==
LOC: H.ER 10:35
DX: Z48.02 Encounter for removal of sutures (principal); E11.9 Type 2 diabetes mellitus without complications; I10 Essential (primary) hypertension; Z79.84 Long term (current) use of oral hypoglycemic drugs